=== PATIENT | male | born 1955 | race Asian ===

== ENCOUNTER 2019-07-25 18:33 | Emergency (ER) | payer SELFPAY ==
[2019-07-25] MEDS ORDERED: SODIUM CHLORIDE 0.9% 1000 ML 1,000 ML IV ONE ×2 (18:56→20:15)
--- NOTE | 2019-07-25 19:03 | Emergency Department Report ---
<MOIZROGELIO - Last Filed: 07/26/19 12:04> ED Altered Mental Status HPI - General Chief Complaint: Altered Mental Status Stated Complaint: ALTERED MENTAL STATUS Time Seen by Provider: 07/25/19 18:52 - Related Data Allergies Allergy/AdvReac Type Severity Reaction Status Date / Time No Known Allergies Allergy Unverified 07/26/19 04:50 - Lab Data Result diagrams: 07/25/19 19:39 07/25/19 19:39 - Medical Decision Making Patient dressed himself. He is now lucid alert and oriented. He denies suicidal homicidal ideation. He is not responding to internal stimuli. I suspect the majority of his symptoms are due to acute intoxication. He is now clinically sober directable calm polite insightful. Discharged home. In regard to elevated creatinine kinase, patient does not have muscle aches or malaise to indicate rhabdomyolysis. He received IV fluid therapy appropriately prior to discharge. ED Disposition Clinical Impression: Altered mental status, Cocaine abuse, Methamphetamine abuse, Acute substance intoxication Disposition: DC-01 TO HOME OR SELFCARE Is pt being admited?: No Does the pt Need Aspirin: No Condition: Stable Instructions: Polysubstance Abuse (ED) Referrals: [facility] [Outside] - 3-5 Days <JOSE DE JESUS GHOTRA - Last Filed: 07/26/19 20:59> ED Altered Mental Status HPI - General Source: EMS Mode of arrival: Stretcher Limitations: Altered Mental Status - History of Present Illness Initial Comments: Patient is 64 years old male with history of schizophrenia and substance abuse. Patient was found by a bystander who called EMS after patient was [place] unconscious in a [place] [address] in [place]. Patient is obtunded with episodes of agitation. Patient is moving all extremities. P atient is unable to provide any more history. Patient found to be hypotensive given normal saline by EMS and his blood pressure improved to 102/54. MD Complaint: altered mental status, decreased responsiveness, intoxication -: unknown Context: alcohol abuse ED Review of Systems Comment: Unobtainable due to pts medical conditions ED Physical Exam - General Limitations: Altered Mental Status General appearance: obtunded - Head Head exam: Present: other (Hematoma to the scalp. No active bleeding.) - Eye Eye exam: Present: normal appearance, other (3 mm and reactive to light) - ENT ENT exam: Present: mucous membranes dry - Neck Neck exam: Present: normal inspection, full ROM. Absent: tenderness, meningismus, lymphadenopathy, thyromegaly - Respiratory Respiratory exam: Present: normal lung sounds bilaterally. Absent: respiratory distress, wheezes, rales, rhonchi, chest wall tenderness, accessory muscle use, decreased breath sounds, prolonged expiratory - Cardiovascular Cardiovascular Exam: Present: regular rate, normal rhythm, normal heart sounds - GI/Abdominal GI/Abdominal exam: Present: soft, normal bowel sounds. Absent: distended, tenderness, guarding, rebound, rigid, organomegaly, mass, bruit, pulsatile mass, hernia - Extremities Exam Extremities exam: Present: normal inspection, full ROM, normal capillary refill. Absent: pedal edema, calf tenderness - Back Exam Back exam: Present: normal inspection, full ROM. Absent: CVA tenderness (R) - Neurological Exam Neurological exam: Present: altered, CN II-XII intact. Absent: motor sensory deficit - Psychiatric Psychiatric exam: Present: normal mood - Skin Skin exam: Present: warm, intact, normal color - Lab Data Result diagrams: 07/25/19 19:39 07/25/19 19:39 - EKG Data -: EKG Interpreted by Nm EKG shows normal: sinus rhythm Rate: normal Interpretation: no acute changes - Radiology Data Radiology results: report reviewed - Medical Decision Making Patient is 64 years old male with history of schizophrenia and substance abuse. Patient was found by a bystander who called EMS after patient was found unconscious in a [place] parking [place] [address] in [place]. Patient is obtunded with episodes of agitation. Patient is moving all extremities. Patient is unable to provide any more history. Patient found to be hypotensive given normal saline by EMS and his blood pressure improved to 102/54. Patient is agitated in the ER. Patient received Geodon 20 mg IM. Labs reviewed and showed a hypokalemia of 2.9. Potassium chloride given. UDS is strongly positive for methamphetamine, cocaine and marijuana. CT brain is negative for acute finding. <NATALIA PINA - Last Filed: 07/28/19 10:49> ED Review of Systems ROS: Stated complaint: ALTERED MENTAL STATUS Other details as noted in HPI ED Course Vital Signs 07/25/19 07/25/19 07/25/19 18:36 18:43 18:45 Temperature 98.3 F Pulse Rate 86 81 75 Respiratory 17 24 26 H Rate Blood Pressure 106/54 Blood Pressure 102/54 [Left] O2 Sat by Pulse 98 95 Oximetry 07/25/19 07/25/19 07/25/19 19:00 19:33 19:45 Temperature Pulse Rate 76 81 Respiratory 25 H 24 22 Rate Blood Pressure 102/53 102/53 103/61 Blood Pressure [Left] O2 Sat by Pulse 95 95 Oximetry 07/25/19 07/25/19 07/25/19 20:00 20:15 20:30 Temperature Pulse Rate 81 Respiratory 23 25 H 26 H Rate Blood Pressure 106/46 102/53 111/50 Blood Pressure [Left] O2 Sat by Pulse 93 92 92 Oximetry 07/25/19 07/25/19 07/25/19 20:45 21:00 21:21 Temperature Pulse Rate 79 80 Respiratory 25 H 27 H 18 Rate Blood Pressure 111/50 107/48 111/50 Blood Pressure [Left] O2 Sat by Pulse 92 93 98 Oximetry 07/25/19 07/25/19 07/25/19 21:31 21:45 22:00 Temperature Pulse Rate 86 90 80 Respiratory 18 14 18 Rate Blood Pressure 118/61 118/61 102/56 Blood Pressure [Left] O2 Sat by Pulse 97 99 97 Oximetry 07/25/19 07/25/19 07/25/19 22:21 22:31 22:45 Temperature Pulse Rate 89 93 H 92 H Respiratory 21 17 21 Rate Blood Pressure 107/48 101/65 102/56 Blood Pressure [Left] O2 Sat by Pulse 98 99 98 Oximetry 07/25/19 07/25/19 07/25/19 23:01 23:15 23:31 Temperature Pulse Rate 89 84 79 Respiratory 23 24 19 Rate Blood Pressure 95/59 101/65 93/57 Blood Pressure [Left] O2 Sat by Pulse 96 98 97 Oximetry 07/25/19 07/26/19 07/26/19 23:45 00:00 00:15 Temperature Pulse Rate 83 77 74 Respiratory 15 19 21 Rate Blood Pressure 93/57 88/45 88/45 Blood Pressure [Left] O2 Sat by Pulse 99 98 97 Oximetry 07/26/19 07/26/19 07/26/19 00:30 00:45 01:00 Temperature Pulse Rate 74 71 73 Respiratory 20 20 21 Rate Blood Pressure 97/52 97/52 99/50 Blood Pressure [Left] O2 Sat by Pulse 98 98 98 Oximetry 07/26/19 07/26/19 07/26/19 01:15 01:30 01:45 Temperature Pulse Rate 71 70 80 Respiratory 23 20 24 Rate Blood Pressure 99/50 108/53 108/53 Blood Pressure [Left] O2 Sat by Pulse 98 98 97 Oximetry 07/26/19 07/26/19 07/26/19 02:00 02:15 02:30 Temperature Pulse Rate 71 76 72 Respiratory 17 20 14 Rate Blood Pressure 105/55 105/55 106/50 Blood Pressure [Left] O2 Sat by Pulse 97 96 97 Oximetry 07/26/19 07/26/19 07/26/19 02:45 03:00 03:16 Temperature Pulse Rate 67 100 H 80 Respiratory 19 24 23 Rate Blood Pressure 106/50 106/50 106/50 Blood Pressure [Left] O2 Sat by Pulse 95 97 97 Oximetry 07/26/19 07/26/19 07/26/19 03:30 03:46 04:00 Temperature Pulse Rate 89 77 76 Respiratory 17 19 19 Rate Blood Pressure 106/50 131/78 100/37 Blood Pressure [Left] O2 Sat by Pulse 98 96 95 Oximetry 07/26/19 07/26/19 07/26/19 04:16 04:30 04:46 Temperature Pulse Rate 78 82 71 Respiratory 18 12 20 Rate Blood Pressure 100/37 100/50 100/50 Blood Pressure [Left] O2 Sat by Pulse 95 99 96 Oximetry 07/26/19 07/26/19 07/26/19 05:00 06:00 07:00 Temperature Pulse Rate 65 78 96 H Respiratory 20 20 26 H Rate Blood Pressure 113/56 99/38 120/62 Blood Pressure [Left] O2 Sat by Pulse 96 95 96 Oximetry 07/26/19 07/26/19 07/26/19 08:00 09:00 10:00 Temperature Pulse Rate 89 104 H 75 Respiratory 22 30 H 22 Rate Blood Pressure 112/62 117/58 129/43 Blood Pressure [Left] O2 Sat by Pulse 99 97 97 Oximetry 07/26/19 11:00 Temperature Pulse Rate Respiratory 26 H Rate Blood Pressure 123/53 Blood Pressure [Left] O2 Sat by Pulse 98 Oximetry - Reevaluation(s) Reevaluation #1: 07/26/19 04:42 pt recevied 4 L NS total (as per nurse orders not initially placed in [facility]) prior to ck draw at 3:23. ck is 1938 now. CK was not initially ordered upon patient's arrival to the ED. Patient apparently also received potassium chloride 20 mEq. Magnesium is normal. I ordered an additional 2 L of normal saline and will sign out to oncoming provider Dr. Roseanne delgado to f/u to ensure trending downward. Pt apparently is more awake and demanding blankets from staff. - Lab Data Result diagrams: 07/25/19 19:39 07/25/19 19:39 Lab Results 07/25/19 07/25/19 07/25/19 Range/Units 18:57 19:36 19:39 WBC 7.9 (4.5-11.0) K/mm3 RBC 3.86 (3.65-5.03) M/mm3 Hgb 12.2 (11.8-15.2) gm/dl Hct 35.8 (35.5-45.6) % MCV 93 (84-94) fl MCH 32 (28-32) pg MCHC 34 (32-34) % RDW 14.6 (13.2-15.2) % Plt Count 208 (140-440) K/mm3 Lymph % (Auto) 13.0 L (13.4-35.0) % [place] % (Auto) 8.9 H (0.0-7.3) % Eos % (Auto) 0.0 (0.0-4.3) % Baso % (Auto) 0.2 (0.0-1.8) % Lymph # 1.0 L (1.2-5.4) K/mm3 [place] # 0.7 (0.0-0.8) K/mm3 Eos # 0.0 (0.0-0.4) K/mm3 Baso # 0.0 (0.0-0.1) K/mm3 Seg Neutrophils % 77.9 H (40.0-70.0) % Seg Neutrophils # 6.1 (1.8-7.7) K/mm3 PT (12.2-14.9) Sec. INR (0.87-1.13) APTT (24.2-36.6) Sec. Sodium (137-145) mmol/L Potassium (3.6-5.0) mmol/L Chloride (98-107) mmol/L Carbon Dioxide (22-30) mmol/L Anion Gap mmol/L BUN (9-20) mg/dL Creatinine (0.8-1.5) mg/dL Estimated GFR ml/min BUN/Creatinine Ratio % Glucose (75-100) mg/dL Lactic Acid (0.7-2.0) mmol/L Calcium (8.4-10.2) mg/dL Magnesium (1.7-2.3) mg/dL Total Bilirubin (0.1-1.2) mg/dL Direct Bilirubin (0-0.2) mg/dL Indirect Bilirubin mg/dL AST (5-40) units/L ALT (7-56) units/L Alkaline Phosphatase (35-129) units/L Ammonia (25-60) umol/L Total Creatine Kinase (55-170) units/L Troponin T (0.00-0.029) ng/mL Total Protein (6.3-8.2) g/dL Albumin (3.9-5) g/dL Albumin/Globulin Ratio % TSH (0.270-4.200) mlU/mL Urine Color (Yellow) Urine Turbidity (Clear) Urine pH (5.0-7.0) Ur Specific [place] (1.003-1.030) Urine Protein (Negative) mg/dL Urine Glucose (UA) (Negative) mg/dL Urine Ketones (Negative) mg/dL Urine Blood (Negative) Urine Nitrite (Negative) Urine Bilirubin (Negative) Urine Urobilinogen (<2.0) mg/dL Ur Leukocyte Esterase (Negative) Urine WBC (Auto) (0.0-6.0) /HPF Urine RBC (Auto) (0.0-6.0) /HPF Urine Bacteria (Auto) (Negative) /HPF Urine Mucus /HPF Salicylates (2.8-20.0) mg/dL Urine Opiates Screen Presumptive negative Urine Methadone Screen Presumptive negative Acetaminophen (10.0-30.0) ug/mL Ur Barbiturates Screen Presumptive negative Ur Phencyclidine Scrn Presumptive negative Ur Amphetamines Screen Presumptive positive U Benzodiazepines Scrn Presumptive negative Urine Cocaine Screen Presumptive positive U Marijuana (THC) Screen Presumptive positive Drugs of Abuse Note Disclamer Plasma/Serum Alcohol (0-0.07) % Blood Type O POSITIVE Antibody Screen Negative 07/25/19 07/25/19 07/25/19 Range/Units 19:39 19:39 19:39 WBC (4.5-11.0) K/mm3 RBC (3.65-5.03) M/mm3 Hgb (11.8-15.2) gm/dl Hct (35.5-45.6) % MCV (84-94) fl MCH (28-32) pg MCHC (32-34) % RDW (13.2-15.2) % Plt Count (140-440) K/mm3 Lymph % (Auto) (13.4-35.0) % [place] % (Auto) (0.0-7.3) % Eos % (Auto) (0.0-4.3) % Baso % (Auto) (0.0-1.8) % Lymph # (1.2-5.4) K/mm3 [place] # (0.0-0.8) K/mm3 Eos # (0.0-0.4) K/mm3 Baso # (0.0-0.1) K/mm3 Seg Neutrophils % (40.0-70.0) % Seg Neutrophils # (1.8-7.7) K/mm3 PT 14.1 (12.2-14.9) Sec. INR 1.08 (0.87-1.13) APTT 28.4 (24.2-36.6) Sec. Sodium 138 (137-145) mmol/L Potassium 2.9 L* (3.6-5.0) mmol/L Chloride 99.5 (98-107) mmol/L Carbon Dioxide 19 L (22-30) mmol/L Anion Gap 22 mmol/L BUN 39 H (9-20) mg/dL Creatinine 1.8 H (0.8-1.5) mg/dL Estimated GFR 38 ml/min BUN/Creatinine Ratio 22 % Glucose 99 (75-100) mg/dL Lactic Acid (0.7-2.0) mmol/L Calcium 8.5 (8.4-10.2) mg/dL Magnesium (1.7-2.3) mg/dL Total Bilirubin (0.1-1.2) mg/dL Direct Bilirubin (0-0.2) mg/dL Indirect Bilirubin mg/dL AST (5-40) units/L ALT (7-56) units/L Alkaline Phosphatase (35-129) units/L Ammonia (25-60) umol/L Total Creatine Kinase (55-170) units/L Troponin T (0.00-0.029) ng/mL Total Protein (6.3-8.2) g/dL Albumin (3.9-5) g/dL Albumin/Globulin Ratio % TSH (0.270-4.200) mlU/mL Urine Color (Yellow) Urine Turbidity (Clear) Urine pH (5.0-7.0) Ur Specific [place] (1.003-1.030) Urine Protein (Negative) mg/dL Urine Glucose (UA) (Negative) mg/dL Urine Ketones (Negative) mg/dL Urine Blood (Negative) Urine Nitrite (Negative) Urine Bilirubin (Negative) Urine Urobilinogen (<2.0) mg/dL Ur Leukocyte Esterase (Negative) Urine WBC (Auto) (0.0-6.0) /HPF Urine RBC (Auto) (0.0-6.0) /HPF Urine Bacteria (Auto) (Negative) /HPF Urine Mucus /HPF Salicylates (2.8-20.0) mg/dL Urine Opiates Screen Urine Methadone Screen Acetaminophen (10.0-30.0) ug/mL Ur Barbiturates Screen Ur Phencyclidine Scrn Ur Amphetamines Screen U Benzodiazepines Scrn Urine Cocaine Screen U Marijuana (THC) Screen Drugs of Abuse Note Plasma/Serum Alcohol < 0.01 (0-0.07) % Blood Type Antibody Screen 07/25/19 07/25/19 07/25/19 Range/Units 19:39 19:39 19:39 WBC (4.5-11.0) K/mm3 RBC (3.65-5.03) M/mm3 Hgb (11.8-15.2) gm/dl Hct (35.5-45.6) % MCV (84-94) fl MCH (28-32) pg MCHC (32-34) % RDW (13.2-15.2) % Plt Count (140-440) K/mm3 Lymph % (Auto) (13.4-35.0) % [place] % (Auto) (0.0-7.3) % Eos % (Auto) (0.0-4.3) % Baso % (Auto) (0.0-1.8) % Lymph # (1.2-5.4) K/mm3 [place] # (0.0-0.8) K/mm3 Eos # (0.0-0.4) K/mm3 Baso # (0.0-0.1) K/mm3 Seg Neutrophils % (40.0-70.0) % Seg Neutrophils # (1.8-7.7) K/mm3 PT (12.2-14.9) Sec. INR (0.87-1.13) APTT (24.2-36.6) Sec. Sodium (137-145) mmol/L Potassium (3.6-5.0) mmol/L Chloride (98-107) mmol/L Carbon Dioxide (22-30) mmol/L Anion Gap mmol/L BUN (9-20) mg/dL Creatinine (0.8-1.5) mg/dL Estimated GFR ml/min BUN/Creatinine Ratio % Glucose (75-100) mg/dL Lactic Acid (0.7-2.0) mmol/L Calcium (8.4-10.2) mg/dL Magnesium (1.7-2.3) mg/dL Total Bilirubin 1.10 (0.1-1.2) mg/dL Direct Bilirubin 0.4 H (0-0.2) mg/dL Indirect Bilirubin 0.7 mg/dL AST 139 H (5-40) units/L ALT 56 (7-56) units/L Alkaline Phosphatase 60 (35-129) units/L Ammonia 52.0 (25-60) umol/L Total Creatine Kinase (55-170) units/L Troponin T 0.010 (0.00-0.029) ng/mL Total Protein 7.6 (6.3-8.2) g/dL Albumin 3.9 (3.9-5) g/dL Albumin/Globulin Ratio 1.1 % TSH 1.880 (0.270-4.200) mlU/mL Urine Color (Yellow) Urine Turbidity (Clear) Urine pH (5.0-7.0) Ur Specific [place] (1.003-1.030) Urine Protein (Negative) mg/dL Urine Glucose (UA) (Negative) mg/dL Urine Ketones (Negative) mg/dL Urine Blood (Negative) Urine Nitrite (Negative) Urine Bilirubin (Negative) Urine Urobilinogen (<2.0) mg/dL Ur Leukocyte Esterase (Negative) Urine WBC (Auto) (0.0-6.0) /HPF Urine RBC (Auto) (0.0-6.0) /HPF Urine Bacteria (Auto) (Negative) /HPF Urine Mucus /HPF Salicylates (2.8-20.0) mg/dL Urine Opiates Screen Urine Methadone Screen Acetaminophen (10.0-30.0) ug/mL Ur Barbiturates Screen Ur Phencyclidine Scrn Ur Amphetamines Screen U Benzodiazepines Scrn Urine Cocaine Screen U Marijuana (THC) Screen Drugs of Abuse Note Plasma/Serum Alcohol (0-0.07) % Blood Type Antibody Screen 07/25/19 07/25/19 07/25/19 Range/Units 19:39 19:39 19:39 WBC (4.5-11.0) K/mm3 RBC (3.65-5.03) M/mm3 Hgb (11.8-15.2) gm/dl Hct (35.5-45.6) % MCV (84-94) fl MCH (28-32) pg MCHC (32-34) % RDW (13.2-15.2) % Plt Count (140-440) K/mm3 Lymph % (Auto) (13.4-35.0) % [place] % (Auto) (0.0-7.3) % Eos % (Auto) (0.0-4.3) % Baso % (Auto) (0.0-1.8) % Lymph # (1.2-5.4) K/mm3 [place] # (0.0-0.8) K/mm3 Eos # (0.0-0.4) K/mm3 Baso # (0.0-0.1) K/mm3 Seg Neutrophils % (40.0-70.0) % Seg Neutrophils # (1.8-7.7) K/mm3 PT (12.2-14.9) Sec. INR (0.87-1.13) APTT (24.2-36.6) Sec. Sodium (137-145) mmol/L Potassium (3.6-5.0) mmol/L Chloride (98-107) mmol/L Carbon Dioxide (22-30) mmol/L Anion Gap mmol/L BUN (9-20) mg/dL Creatinine (0.8-1.5) mg/dL Estimated GFR ml/min BUN/Creatinine Ratio % Glucose (75-100) mg/dL Lactic Acid 0.80 (0.7-2.0) mmol/L Calcium (8.4-10.2) mg/dL Magnesium (1.7-2.3) mg/dL Total Bilirubin (0.1-1.2) mg/dL Direct Bilirubin (0-0.2) mg/dL Indirect Bilirubin mg/dL AST (5-40) units/L ALT (7-56) units/L Alkaline Phosphatase (35-129) units/L Ammonia (25-60) umol/L Total Creatine Kinase (55-170) units/L Troponin T (0.00-0.029) ng/mL Total Protein (6.3-8.2) g/dL Albumin (3.9-5) g/dL Albumin/Globulin Ratio % TSH (0.270-4.200) mlU/mL Urine Color (Yellow) Urine Turbidity (Clear) Urine pH (5.0-7.0) Ur Specific [place] (1.003-1.030) Urine Protein (Negative) mg/dL Urine Glucose (UA) (Negative) mg/dL Urine Ketones (Negative) mg/dL Urine Blood (Negative) Urine Nitrite (Negative) Urine Bilirubin (Negative) Urine Urobilinogen (<2.0) mg/dL Ur Leukocyte Esterase (Negative) Urine WBC (Auto) (0.0-6.0) /HPF Urine RBC (Auto) (0.0-6.0) /HPF Urine Bacteria (Auto) (Negative) /HPF Urine Mucus /HPF Salicylates < 0.3 L (2.8-20.0) mg/dL Urine Opiates Screen Urine Methadone Screen Acetaminophen < 5.0 L (10.0-30.0) ug/mL Ur Barbiturates Screen Ur Phencyclidine Scrn Ur Amphetamines Screen U Benzodiazepines Scrn Urine Cocaine Screen U Marijuana (THC) Screen Drugs of Abuse Note Plasma/Serum Alcohol (0-0.07) % Blood Type Antibody Screen 07/25/19 07/25/19 07/25/19 Range/Units 21:37 21:37 22:40 WBC (4.5-11.0) K/mm3 RBC (3.65-5.03) M/mm3 Hgb (11.8-15.2) gm/dl Hct (35.5-45.6) % MCV (84-94) fl MCH (28-32) pg MCHC (32-34) % RDW (13.2-15.2) % Plt Count (140-440) K/mm3 Lymph % (Auto) (13.4-35.0) % [place] % (Auto) (0.0-7.3) % Eos % (Auto) (0.0-4.3) % Baso % (Auto) (0.0-1.8) % Lymph # (1.2-5.4) K/mm3 [place] # (0.0-0.8) K/mm3 Eos # (0.0-0.4) K/mm3 Baso # (0.0-0.1) K/mm3 Seg Neutrophils % (40.0-70.0) % Seg Neutrophils # (1.8-7.7) K/mm3 PT (12.2-14.9) Sec. INR (0.87-1.13) APTT (24.2-36.6) Sec. Sodium (137-145) mmol/L Potassium (3.6-5.0) mmol/L Chloride (98-107) mmol/L Carbon Dioxide (22-30) mmol/L Anion Gap mmol/L BUN (9-20) mg/dL Creatinine (0.8-1.5) mg/dL Estimated GFR ml/min BUN/Creatinine Ratio % Glucose (75-100) mg/dL Lactic Acid 0.80 (0.7-2.0) mmol/L Calcium (8.4-10.2) mg/dL Magnesium (1.7-2.3) mg/dL Total Bilirubin (0.1-1.2) mg/dL Direct Bilirubin (0-0.2) mg/dL Indirect Bilirubin mg/dL AST (5-40) units/L ALT (7-56) units/L Alkaline Phosphatase (35-129) units/L Ammonia (25-60) umol/L Total Creatine Kinase (55-170) units/L Troponin T < 0.010 (0.00-0.029) ng/mL Total Protein (6.3-8.2) g/dL Albumin (3.9-5) g/dL Albumin/Globulin Ratio % TSH (0.270-4.200) mlU/mL Urine Color Yellow (Yellow) Urine Turbidity Clear (Clear) Urine pH 5.0 (5.0-7.0) Ur Specific [place] 1.009 (1.003-1.030) Urine Protein <15 mg/dl (Negative) mg/dL Urine Glucose (UA) Neg (Negative) mg/dL Urine Ketones 20 (Negative) mg/dL Urine Blood Sm (Negative) Urine Nitrite Neg (Negative) Urine Bilirubin Neg (Negative) Urine Urobilinogen < 2.0 (<2.0) mg/dL Ur Leukocyte Esterase Neg (Negative) Urine WBC (Auto) 1.0 (0.0-6.0) /HPF Urine RBC (Auto) 3.0 (0.0-6.0) /HPF Urine Bacteria (Auto) 1+ (Negative) /HPF Urine Mucus Few /HPF Salicylates (2.8-20.0) mg/dL Urine Opiates Screen Urine Methadone Screen Acetaminophen (10.0-30.0) ug/mL Ur Barbiturates Screen Ur Phencyclidine Scrn Ur Amphetamines Screen U Benzodiazepines Scrn Urine Cocaine Screen U Marijuana (THC) Screen Drugs of Abuse Note Plasma/Serum Alcohol (0-0.07) % Blood Type Antibody Screen 07/26/19 07/26/19 Range/Units 03:23 10:42 WBC (4.5-11.0) K/mm3 RBC (3.65-5.03) M/mm3 Hgb (11.8-15.2) gm/dl Hct (35.5-45.6) % MCV (84-94) fl MCH (28-32) pg MCHC (32-34) % RDW (13.2-15.2) % Plt Count (140-440) K/mm3 Lymph % (Auto) (13.4-35.0) % [place] % (Auto) (0.0-7.3) % Eos % (Auto) (0.0-4.3) % Baso % (Auto) (0.0-1.8) % Lymph # (1.2-5.4) K/mm3 [place] # (0.0-0.8) K/mm3 Eos # (0.0-0.4) K/mm3 Baso # (0.0-0.1) K/mm3 Seg Neutrophils % (40.0-70.0) % Seg Neutrophils # (1.8-7.7) K/mm3 PT (12.2-14.9) Sec. INR (0.87-1.13) APTT (24.2-36.6) Sec. Sodium (137-145) mmol/L Potassium (3.6-5.0) mmol/L Chloride (98-107) mmol/L Carbon Dioxide (22-30) mmol/L Anion Gap mmol/L BUN (9-20) mg/dL Creatinine (0.8-1.5) mg/dL Estimated GFR ml/min BUN/Creatinine Ratio % Glucose (75-100) mg/dL Lactic Acid (0.7-2.0) mmol/L Calcium (8.4-10.2) mg/dL Magnesium 2.50 H (1.7-2.3) mg/dL Total Bilirubin (0.1-1.2) mg/dL Direct Bilirubin (0-0.2) mg/dL Indirect Bilirubin mg/dL AST (5-40) units/L ALT (7-56) units/L Alkaline Phosphatase (35-129) units/L Ammonia (25-60) umol/L Total Creatine Kinase 1938 H 2114 H (55-170) units/L Troponin T (0.00-0.029) ng/mL Total Protein (6.3-8.2) g/dL Albumin (3.9-5) g/dL Albumin/Globulin Ratio % TSH (0.270-4.200) mlU/mL Urine Color (Yellow) Urine Turbidity (Clear) Urine pH (5.0-7.0) Ur Specific [place] (1.003-1.030) Urine Protein (Negative) mg/dL Urine Glucose (UA) (Negative) mg/dL Urine Ketones (Negative) mg/dL Urine Blood (Negative) Urine Nitrite (Negative) Urine Bilirubin (Negative) Urine Urobilinogen (<2.0) mg/dL Ur Leukocyte Esterase (Negative) Urine WBC (Auto) (0.0-6.0) /HPF Urine RBC (Auto) (0.0-6.0) /HPF Urine Bacteria (Auto) (Negative) /HPF Urine Mucus /HPF Salicylates (2.8-20.0) mg/dL Urine Opiates Screen Urine Methadone Screen Acetaminophen (10.0-30.0) ug/mL Ur Barbiturates Screen Ur Phencyclidine Scrn Ur Amphetamines Screen U Benzodiazepines Scrn Urine Cocaine Screen U Marijuana (THC) Screen Drugs of Abuse Note Plasma/Serum Alcohol (0-0.07) % Blood Type Antibody Screen Critical care attestation.: If time is entered above; I have spent that time in minutes in the direct care of this critically ill patient, excluding procedure time.
[2019-07-25] MEDS ORDERED: ZIPRASIDONE MESYLATE 20 MG VIAL IM ONE ×2 (19:13→20:52)
--- NOTE | 2019-07-25 19:30 | XRay Report ---
CHEST 1 VIEW INDICATION: Altered Mental Status. COMPARISON: None FINDINGS: Support devices: None. Heart: Within normal limits. Lungs/Pleura: No acute air space or interstitial disease. Additional findings: None. IMPRESSION: 1. No acute findings. Signer Name: Jimbo Leroy MD Signed: 07/25/2019 7:26 PM Workstation Name: [id number]
[2019-07-25 19:52] LABS: Basophils % (Auto) 0.2 % (0.0-1.8); Hematocrit 35.8 % (35.5-45.6); Hemoglobin 12.2 gm/dl (11.8-15.2); Mean Corpuscular HGB Conc 34 % (32-34); Mean Corpuscular Volume 93 fl (84-94); Monocytes # (Auto) 0.7 K/mm3 (0.0-0.8); Monocytes % (Auto) 8.9 % (0.0-7.3); Platelet Count 208 K/mm3 (140-440); Red Blood Count 3.86 M/mm3 (3.65-5.03); Red Cell Distribution Width 14.6 % (13.2-15.2)
[2019-07-25 20:10] LABS: Calcium 8.5 mg/dL (8.4-10.2)
[2019-07-25 20:14] LABS: Albumin 3.9 g/dL (3.9-5); Bilirubin,Direct 0.4 mg/dL (0-0.2); INR 1.08 (0.87-1.13)
[2019-07-25 20:15] LABS: Partial Thromboplastin Time 28.4 Sec. (24.2-36.6)
[2019-07-25] MEDS: POTASSIUM CHLORIDE 10 MEQ 10 MEQ/100 ML BAG IV SCH ×2 (21:45→22:45)
--- NOTE | 2019-07-25 22:45 | Cat Scan Report ---
CT head/brain wo con INDICATION / CLINICAL INFORMATION: Altered Mental Status. TECHNIQUE: Axial CT imaging of the brain was obtained without contrast. Coronal and sagittal reformatted imaging obtained and reviewed. All CT scans at this location are performed using CT dose reduction for ALA RA by means of automated exposure control. COMPARISON: None available. FINDINGS: No intracranial hemorrhage, mass, or midline shift noted. No extra-axial fluid collection or suggesti on of acute CVA. Mild to moderate cerebral and cerebellar atrophy are noted. Moderate microvascular a ngiopathic changes are present. Visualized paranasal sinuses are well aerated and clear. No calvarial abnormality. IMPRESSION: 1. No acute intracranial abnormality. 2. Moderate microvascular angiopathic changes. Signer Name: Anusha Stewart MD Signed: 07/25/2019 10:41 PM Workstation Name: [id number]
[2019-07-26 00:18] LABS: Bacteria,Urine 1+ /HPF (Negative); Bilirubin,Urine NEG (Negative); Blood,Urine SM (Negative); Color,Urine Yellow (Yellow); Mucus,Urine FEW /HPF; Protein,Urine <15 mg/dL mg/dL (Negative); Urobilinogen,Urine < 2.0 mg/dL (<2.0)
[2019-07-26 00:28] LABS: Benzodiazepines Screen,Urine PRESUMPTIVE NEGATIVE; Methadone Screen,Urine PRESUMPTIVE NEGATIVE; Opiate Screen,Urine PRESUMPTIVE NEGATIVE
[2019-07-26 00:43] LABS: Amphetamine Screen,Urine PRESUMPTIVE POSITIVE; Cannabinoid Screen,Urine PRESUMPTIVE POSITIVE; Cocaine Screen,Urine PRESUMPTIVE POSITIVE
[2019-07-26] MEDS ORDERED: SODIUM CHLORIDE 0.9% 1000 ML 1,000 ML IV ONE ×3 (04:37)
[2019-07-26] MEDS ORDERED: ZIPRASIDONE MESYLATE 20 MG VIAL IM ONE (10:52)
[2019-07-26] MEDS ORDERED: WATER FOR INJ Sterile (PF) 10 ML ONE (11:03)
[2019-07-26 11:15] VITALS: BP 123/53
== END 2019-07-26 12:18 | disposition home or self-care (01) ==
LOC: ED 18:33
DX: R45.851 Suicidal ideations (principal); F14.10 Cocaine abuse, uncomplicated; F19.10 Other psychoactive substance abuse, uncomplicated; F15.129 Other stimulant abuse with intoxication, unspecified
CPT/HCPCS: 36415; 70450; 71045; 80048; 80076; 80307; 81001; 82140; 82550; 83735; 84443; 84484; 85025; 85610; 85730; 86850; 86900; 86901; 87040; 93005; 93010; 96361; 96365; 96366; 96372; 99285; J3480; J3486; J7030; 80320; G0480

== ENCOUNTER 2020-03-03 21:02 | Inpatient (IN) | payer MEDICAID ==
--- NOTE | 2020-03-03 21:18 | Emergency Department Report ---
ED General Adult HPI - General Chief complaint: Fever Stated complaint: FEVER/LOW O2 SATS PUI?: No Time Seen by Provider: 03/03/20 21:13 Source: EMS, RN notes reviewed, old records reviewed Mode of arrival: Stretcher Limitations: Altered Mental Status, Physical Limitation - History of Present Illness Initial comments: Patient is a 64-year-old male that presents from a local group home for fever and low oxygen saturation. Patient presents from [facility]. Patient brought in by EMS. Report received from EMS. EMS states that the patient is at his normal neurologic baseline and has a history of a TBI and has been like this since a traumatic brain injury. Patient developed a fever and became hypoxic tonight. Patient has not been tested for Covid. Patient presents with his group home chart. alf chart was reviewed. Patient has a past medical history of traumatic brain injury, anemia, dysphagia, hypertension, PEG tube, trach tube. -: Sudden - Related Data Allergies Allergy/AdvReac Type Severity Reaction Status Date / Time No Known Allergies Allergy Unverified 07/26/19 04:50 ED Review of Systems ROS: Stated complaint: FEVER/LOW O2 SATS Other details as noted in HPI Comment: Unobtainable due to pts medical conditions ED Past Medical Hx - Past Medical History Previous Medical History?: Yes Hx Hypertension: Yes Additional medical history: TBI - Surgical History Past Surgical History?: Yes Additional Surgical History: Trach and PEG - Family History Family history: no significant - Social History Smoking Status: Unknown if ever smoked Substance Use Type: None ED Physical Exam - General Limitations: Altered Mental Status, Physical Limitation General appearance: lethargic, in distress - Head Head exam: Present: atraumatic, normocephalic - Eye Eye exam: Present: normal appearance, PERRL Pupils: Present: normal accommodation - ENT ENT exam: Present: mucous membranes dry - Neck Neck exam: Present: normal inspection - Respiratory Respiratory exam: Present: respiratory distress, accessory muscle use, decreased breath sounds. Absent: wheezes - Cardiovascular Cardiovascular Exam: Present: regular rate, normal rhythm. Absent: systolic murmur, diastolic murmur, rubs, gallop - GI/Abdominal GI/Abdominal exam: Present: soft, normal bowel sounds. Absent: distended, tenderness, guarding - Rectal Rectal exam: Present: deferred - Extremities Exam Extremities exam: Present: normal inspection - Back Exam Back exam: Present: normal inspection - Neurological Exam Neurological exam: Present: altered - Expanded Neurological Exam Expanded Best Eye Response (Bonita): (3) open to voice Best Motor Response (Bonita): (6) obeys commands Best Verbal Response (Bonita): (3) inappropriate words Bonita Total: 12 - Skin Skin exam: Present: warm, dry, intact, normal color. Absent: rash ED Course Vital Signs 03/03/20 03/03/20 03/04/20 21:30 22:38 00:51 Temperature 98.4 F Pulse Rate 84 113 H 106 H Respiratory 37 H Rate Blood Pressure 114/81 107/72 Blood Pressure 122/71 [Left] O2 Sat by Pulse 98 98 100 Oximetry - Reevaluation(s) Reevaluation #1: After initial valuation, respiratory was contacted to place the patient on a ventilator via his trach tube. Patient's oxygen improved. 03/03/20 21:42 Reevaluation #2: Patient is on the vent. Patient's oxygen saturation has improved. Patient's work to breathe has improved. 03/03/20 22:26 Reevaluation #3: Patient to be admitted to the hospitalist service. 03/03/20 23:26 - Consultations Consultation #1: Hospitalist consulted for admission. Hospitalist to admit patient. 03/03/20 23:27 ED Medical Decision Making - Lab Data Result diagrams: 03/03/20 21:51 03/03/20 22:00 - Radiology Data Radiology results: report reviewed, image reviewed interpreted by me: XR chest 1V ap INDICATION / CLINICAL INFORMATION: fever. COMPARISON: 07/25/2019. FINDINGS: SUPPORT DEVICES: Tracheostomy device projects within the mid trachea. HEART /PULMONARY VASCULATURE: No significant abnormality. LUNGS / PLEURA: There are patchy airspace opacities within the right mid and lower lung and left lung base. No pleural effusion. No pneumothorax. ADDITIONAL FINDINGS: No significant additional findings. IMPRESSION: Patchy bibasilar airspace opacities, concerning for pneumonia. - Medical Decision Making Patient is a 64-year-old male that presents emergency room with for fever and hypoxia. Patient is currently in a group home, [place]. Patient brought in by EMS. Patient has a trach and a PEG. Due to the patient's hypoxia and increased work of breathing, the patient's trach was changed and the patient was placed on a ventilator. Patient's vital signs improved. Patient had a sepsis protocol initiated immediately after initial evaluation. Patient given fluids and antibiotics early in the ER stay. Patient's heart rate and blood pressure improved. Patient had labs done which were essentially unremarkable except for elevated Covid markers, elevated WBC, hyponatremia, UTI. Patient admitted to the hospital service for further evaluation treatment. Patient admitted into the ICU. - Differential Diagnosis Sepsis, pneumonia, Covid, UTI, Critical Care Time: Yes Critical care time in (mins) excluding proc time.: 35 Critical care attestation.: If time is entered above; I have spent that time in minutes in the direct care of this critically ill patient, excluding procedure time. Critical Care Time: 35 minutes ED Disposition Clinical Impression: Hypoxia, Person under investigation for COVID-19, Dehydration, Hypernatremia Respiratory failure Qualifiers: Chronicity: acute Respiratory failure complication: hypoxia Qualified Code(s): J96.01 - Acute respiratory failure with hypoxia Fever Qualifiers: Fever type: unspecified Qualified Code(s): R50.9 - Fever, unspecified Pneumonia Qualifiers: Pneumonia type: due to unspecified organism Laterality: bilateral Lung location: unspecified part of lung Qualified Code(s): J18.9 - Pneumonia, unspecified organism Sepsis Qualifiers: Sepsis type: sepsis due to unspecified organism Sepsis acute organ dysfunction status: with acute organ dysfunction Severe sepsis acute organ dysfunction type: acute respiratory failure Acute respiratory failure type: with hypoxia Severe sepsis shock status: without septic shock Qualified Code(s): A41.9 - Sepsis, unspecified organism UTI (urinary tract infection) Qualifiers: Urinary tract infection type: acute cystitis Hematuria presence: with hematuria Qualified Code(s): N30.01 - Acute cystitis with hematuria Disposition: OP ADMIT IP TO THIS HOSP Is pt being admited?: Yes Does the pt Need Aspirin: No Condition: Critical Time of Disposition: 23:35
[2020-03-03] MEDS ORDERED: SODIUM CHLORIDE 0.9% 1000 ML IV SOLN IV ONE (21:21)
[2020-03-03] MEDS ORDERED: cefTRIAXone/NS 2 GM/100 ML 2 GM/100 ML BAG IV ONE (21:55)
[2020-03-03] MEDS ORDERED: dexAMETHasone 4 MG/ML VIAL IV ONE (21:55)
--- NOTE | 2020-03-03 22:07 | XRay Report ---
XR chest 1V ap INDICATION / CLINICAL INFORMATION: fever. COMPARISON: 07/25/2019. FINDINGS: SUPPORT DEVICES: Tracheostomy device projects within the mid trachea. HEART /PULMONARY VASCULATURE: No significant abnormality. LUNGS / PLEURA: There are patchy airspace opacities within the right mid and lower lung and left lung base. No pleural effusion. No pneumothorax. ADDITIONAL FINDINGS: No significant additional findings. IMPRESSION: Patchy bibasilar airspace opacities, concerning for pneumonia. Signer Name: Axel Adamson MD Signed: 03/03/2020 10:03 PM Workstation Name: [id number]
[2020-03-03 22:21] LABS: Basophils % (Auto) 0.2 % (0.0-1.8); Hematocrit 35.3 % (35.5-45.6); Hemoglobin 11.8 gm/dl (11.8-15.2); Lymphocytes # (Auto) 1.8 K/mm3 (1.2-5.4); Lymphocytes % (Auto) 11.6 % (13.4-35.0); Mean Corpuscular HGB Conc 33 % (32-34); Mean Corpuscular Volume 93 fl (84-94); Monocytes # (Auto) 0.7 K/mm3 (0.0-0.8); Monocytes % (Auto) 4.5 % (0.0-7.3); Platelet Count 231 K/mm3 (140-440); Red Blood Count 3.81 M/mm3 (3.65-5.03); Red Cell Distribution Width 17.9 % (13.2-15.2)
[2020-03-03 22:24] LABS: Alanine Aminotransferase 30 units/L (7-56); Albumin 2.8 g/dL (3.9-5); Blood Urea Nitrogen 29 mg/dL (9-20); Calcium 9.9 mg/dL (8.4-10.2); Hemolysis Index 2
[2020-03-03 22:30] LABS: BUN/Creatinine Ratio 48
[2020-03-03] MEDS ORDERED: AZITHROMYCIN 500 MG in SODIUM CHLORIDE 0.9% 250ML 250 ML IV ONE (22:30)
[2020-03-03] MEDS ORDERED: MINERAL OIL/PETROLATUM, WHITE OPHTH OINT 3.5 GM OU PRN (22:31)
[2020-03-03] MEDS ORDERED: LIP THERAPY VASELINE TP PRN (22:31)
[2020-03-03 22:37] LABS: Bacteria,Urine 1+ /HPF (Negative); Bilirubin,Urine NEG (Negative); Blood,Urine NEG (Negative); Color,Urine Amber (Yellow); Hyaline Casts,Urine 1 /LPF; Mucus,Urine 1+ /HPF
[2020-03-03 23:11] LABS: C-Reactive Protein 17.2 mg/dL (0.00-1.30)
[2020-03-03] MEDS ORDERED: ONDANSETRON 4 MG/2 ML INJ IV PRN (23:45)
[2020-03-03] MEDS ORDERED: MAGNESIUM HYDROXIDE (MOM) ORAL LIQD UDC PO PRN (23:45)
[2020-03-03] MEDS ORDERED: SODIUM CHLORIDE 0.9% 1000 ML 1,000 ML IV SCH (23:45)
--- NOTE | 2020-03-03 23:57 | History and Physical Report ---
History of Present Illness Date of examination: 03/03/20 Date of admission: 03/03/2020 Chief complaint: Fever, Hypoxia History of present illness: 64-year-old male with known history of traumatic brain injury, hypertension, history of trach placement and PEG placement resident of [facility] brought into the emergency room today by EMS for low oxygen saturation fever. Patient was said to have developed fever and also became hypoxic this evening. Most of the history was gotten from the ER staff as patient is unable to give any history. Work-up in the emergency room today reveals bilateral pneumonia on chest x-ray. He is also found to have a UTI. Patient has been admitted for a pneumonia with possible COVID-19, dehydration, urinary tract infection and sepsis. Past History Past Medical History: hypertension, other (Traumatic Brain injury) Past Surgical History: Other (Trach and peg placement) Social history: other (Resides in a group home) Family history: no significant family history Medications and Allergies Allergies Allergy/AdvReac Type Severity Reaction Status Date / Time No Known Allergies Allergy Unverified 07/26/19 04:50 Active Meds: Active Medications Enoxaparin Sodium (Enoxaparin) 40 mg SUB-Q QDAY@2200 KESHAWN; Protocol Hydrophilic Ointment (Vaseline Lip Therapy) 1 applic TP Q2HR PRN PRN Reason: Dry Lips Sodium Chloride (Nacl 0.9% 1000 Ml) 1,000 mls @ 75 mls/hr IV DIRECT KESHAWN Ceftriaxone Sodium (Rocephin/Ns 2 Gm/100 Ml) 2 gm in 100 mls @ 200 mls/hr IV Q24HR KESHAWN; Protocol Azithromycin 500 mg/ Sodium (Chloride) 250 mls @ 250 mls/hr IV Q24HR KESHAWN; Protocol Magnesium Hydroxide (Milk Of Magnesia) 30 ml PO Q4H PRN PRN Reason: Constipation Morphine Sulfate (Morphine) 2 mg IV Q4H PRN PRN Reason: Pain, Moderate (4-6) Multi-Ingred Cream/Lotion/Oil/Oint (Artificial Tears Ophth Oint) 1 applic OU Q4HR PRN PRN Reason: Dry Eye(s) Ondansetron HCl (Zofran) 4 mg IV Q8H PRN PRN Reason: Nausea And Vomiting Sodium Chloride (Sodium Chloride Flush Syringe 10 Ml) 10 ml IV BID KESHAWN Sodium Chloride (Sodium Chloride Flush Syringe 10 Ml) 10 ml IV PRN PRN PRN Reason: LINE FLUSH Review of Systems ROS unobtainable: due to mental status Exam - Constitutional Vitals: Temp Pulse Resp BP Pulse Ox 98.4 F 113 H 37 H 114/81 98 03/03/20 21:30 03/03/20 22:38 03/03/20 21:30 03/03/20 22:38 03/03/20 22:38 General appearance: Present: no acute distress, cachectic, other (Dry oral mucosa,Trach in place) - EENT Eyes: Present: PERRL, EOM intact. Absent: scleral icterus ENT: hearing intact, clear oral mucosa, dentition normal - Neck Neck: Present: supple, normal ROM - Respiratory Respiratory effort: normal Respiratory: bilateral: diminished - Cardiovascular Rhythm: regular Heart Sounds: Present: S1 & S2. Absent: gallop, systolic murmur, diastolic murmur, rub - Extremities Extremities: no ischemia, pulses intact, pulses symmetrical, No edema, Full ROM Peripheral Pulses: within normal limits - Abdominal General gastrointestinal: Present: soft, non-tender, non-distended, normal bowel sounds. Absent: mass - Integumentary Integumentary: Present: clear, warm, dry - Musculoskeletal Musculoskeletal: strength equal bilaterally - Psychiatric Psychiatric: cooperative, other (Non verbal) - Neurologic Neurologic: CNII-XII intact, moves all extremities, other (Obtunded) Results - Labs CBC & Chem 7: 03/03/20 21:51 03/03/20 22:00 Labs: Abnormal lab results 03/03/20 03/03/20 03/03/20 Range/Units 21:51 21:51 22:00 WBC 15.5 H (4.5-11.0) K/mm3 Hct 35.3 L (35.5-45.6) % RDW 17.9 H (13.2-15.2) % Lymph % (Auto) 11.6 L (13.4-35.0) % Seg Neutrophils % 83.7 H (40.0-70.0) % Seg Neutrophils # 13.0 H (1.8-7.7) K/mm3 D-Dimer 1415.56 H (0-234) ng/mlDDU Sodium 151 H (137-145) mmol/L Chloride 114.4 H (98-107) mmol/L BUN 29 H (9-20) mg/dL Creatinine 0.6 L (0.8-1.3) mg/dL Glucose 116 H (75-100) mg/dL Ferritin (30.0-300.0) ng/mL Lactate Dehydrogenase (91-180) units/L C-Reactive Protein (0.00-1.30) mg/dL Total Protein 8.9 H (6.3-8.2) g/dL Albumin 2.8 L (3.9-5) g/dL Ur Specific [place] (1.003-1.030) Urine WBC (Auto) (0.0-6.0) /HPF 03/03/20 03/03/20 03/03/20 Range/Units 22:00 22:00 22:15 WBC (4.5-11.0) K/mm3 Hct (35.5-45.6) % RDW (13.2-15.2) % Lymph % (Auto) (13.4-35.0) % Seg Neutrophils % (40.0-70.0) % Seg Neutrophils # (1.8-7.7) K/mm3 D-Dimer (0-234) ng/mlDDU Sodium (137-145) mmol/L Chloride (98-107) mmol/L BUN (9-20) mg/dL Creatinine (0.8-1.3) mg/dL Glucose 106 H (75-100) mg/dL Ferritin 522.1 H (30.0-300.0) ng/mL Lactate Dehydrogenase 240 H (91-180) units/L C-Reactive Protein 17.20 H (0.00-1.30) mg/dL Total Protein (6.3-8.2) g/dL Albumin (3.9-5) g/dL Ur Specific [place] 1.031 H (1.003-1.030) Urine WBC (Auto) 8.0 H (0.0-6.0) /HPF Assessment and Plan - Patient Problems (1) Pneumonia Current Visit: Yes Status: Acute Qualifiers: Pneumonia type: due to unspecified organism Laterality: bilateral Lung location: unspecified part of lung Qualified Code(s): J18.9 - Pneumonia, unspe cified organism Plan to address problem: Patient commenced on empiric IV antibiotics. We await culture results. (2) Respiratory failure Current Visit: Yes Status: Acute Qualifiers: Chronicity: acute Respiratory failure complication: hypoxia Qualified Code(s): J96.01 - Acute respiratory failure with hypoxia Plan to address problem: Possibly secondary to the underlying pneumonia with possible Covid. Patient has been on trach and being admitted into the intensive care unit. Will request marketing communications specialist follow-up. (3) Dehydration Current Visit: Yes Status: Acute Plan to address problem: We will place on IV fluid and monitor chemistry. (4) Hypernatremia Current Visit: Yes Status: Acute Plan to address problem: Possibly secondary to the dehydration we will continue on IV fluid hydration. (5) Hypoxia Current Visit: Yes Status: Acute Plan to address problem: Possibly secondary to the underlying pneumonia. We will keep O2 saturation greater or equal to 94%. (6) Person under investigation for COVID-19 Current Visit: Yes Status: Acute Plan to address problem: Patient will be placed on isolation precautions. We await COVID-19 testing. We will also request infectious disease follow-up. (7) Sepsis Current Visit: Yes Status: Acute Qualifiers: Sepsis type: sepsis due to unspecified organism Sepsis acute organ dysfunction status: with acute organ dysfunction Severe sepsis acute organ dysfunction type: acute respiratory failure Acute respiratory failure type: with hypoxia Severe sepsis shock status: without septic shock Qualified Code(s): A41.9 - Sepsis, unspecified organism; R65.20 - Severe sepsis without septic shock; J96.01 - Acute respiratory failure with hypoxia Plan to address problem: Secondary to the underlying pneumonia and UTI. We will continue on IV fluid and empiric IV antibiotics. (8) UTI (urinary tract infection) Current Visit: Yes Status: Acute Qualifiers: Urinary tract infection type: acute cystitis Hematuria presence: with hematuria Qualified Code(s): N30.01 - Acute cystitis with hematuria Plan to address problem: We will continue on empiric IV antibiotics. Will await urine culture results. (9) DVT prophylaxis Current Visit: Yes Status: Acute Plan to address problem: Patient placed on subcutaneous Lovenox. (10) Full code status Current Visit: Yes Status: Acute
--- NOTE | 2020-03-04 00:50 | XRay Report ---
CHEST 1 VIEW INDICATION: follow up respiratory failure. COMPARISON: One day prior. FINDINGS: Support devices: Unchanged. Heart: Stable. Lungs/Pleura: Patchy bibasilar opacities are relatively stable. These are greatest in the infrahilar right lung. No pneumothorax is seen. IMPRESSION: 1. No significant change. Signer Name: Jaydon West MD Signed: 03/04/2020 12:46 AM Workstation Name: [id number]
[2020-03-04 01:55] LABS: ABG Base Excess 2.6 mmol/L (-2.0-3.0); ABG HCO3 26.7 mmol/L (20.0-26.0); ABG Methemoglobin 0.5 % (0.0-1.5); ABG Oxygen Saturation 99.1 % (95.0-99.0); ABG PCO2 39.6 mm Hg; ABG PH 7.446 pH Units (7.350-7.450); ABG PO2 173.4 mm Hg (80.0-90.0)
[2020-03-04 03:26] LABS: INR 1.29 (0.87-1.13)
[2020-03-04 03:37] LABS: Blood Urea Nitrogen 27 mg/dL (9-20); Calcium 9.1 mg/dL (8.4-10.2); Hemolysis Index 3
[2020-03-04 03:38] LABS: BUN/Creatinine Ratio 68
[2020-03-04 03:40] LABS: Hematocrit 33.4 % (35.5-45.6); Hemoglobin 10.9 gm/dl (11.8-15.2); Mean Corpuscular HGB Conc 33 % (32-34); Mean Corpuscular Volume 94 fl (84-94); Platelet Count 195 K/mm3 (140-440); Red Blood Count 3.56 M/mm3 (3.65-5.03); Red Cell Distribution Width 17.5 % (13.2-15.2)
[2020-03-04] MEDS ORDERED: SODIUM CHLORIDE 0.9% 1000 ML 1,000 ML ONE (05:40)
[2020-03-04 05:56] LABS: Anisocytosis Few; Basophils % (Manual) 0 % (0.0-1.8); Eosinophils % (Manual) 0 % (0.0-4.3); Hypochromasia Few; Platelet Estimate Consistent w Auto; Total Cells Counted 100
[2020-03-04] MEDS ORDERED: LORazepam 2 MG/ML VIAL IV ONE (06:29)
[2020-03-04] MEDS ORDERED: LORazepam 2 MG/ML VIAL ONE (06:31)
--- NOTE | 2020-03-04 08:17 | Progress Note ---
Assessment and Plan Assessment and plan: (1) Pneumonia Current Visit: Yes Status: Acute Qualifiers: Pneumonia type: due to unspecified organism Laterality: bilateral Lung location: unspecified part of lung Qualified Code(s): J18.9 - Pneumonia, unspecified organism Plan to address problem: Patient commenced on empiric IV antibiotics. We await culture results. (2) Respiratory failure Current Visit: Yes Status: Acute Qualifiers: Chronicity: acute Respiratory failure complication: hypoxia Qualified Code(s): J96.01 - Acute respiratory failure with hypoxia Plan to address problem: Possibly secondary to the underlying pneumonia with possible Covid. Patient has been on trach and being admitted into the intensive care unit. Will request patient relations specialist follow-up. (3) Dehydration Current Visit: Yes Status: Acute Plan to address problem: We will place on IV fluid and monitor chemistry. (4) Hypernatremia Current Visit: Yes Status: Acute Plan to address problem: Possibly secondary to the dehydration we will continue on IV fluid hydration. (5) Hypoxia Current Visit: Yes Status: Acute Plan to address problem: Possibly secondary to the underlying pneumonia. We will keep O2 saturation greater or equal to 94%. (6) Person under investigation for COVID-19 Current Visit: Yes Status: Acute Plan to address problem: Patient will be placed on isolation precautions. We await COVID-19 testing. We will also request infectious disease follow-up. (7) Sepsis Current Visit: Yes Status: Acute Qualifiers: Sepsis type: sepsis due to unspecified organism Sepsis acute organ dysfunction status: with acute organ dysfunction Severe sepsis acute organ dysfunction type: acute respiratory failure Acute respiratory failure type: with hypoxia Severe sepsis shock status: without septic shock Qualified Code(s): A41.9 - Sepsis, unspecified organism; R65.20 - Severe sepsis without septic shock; J96.01 - Acute respiratory failure with hypoxia Plan to address problem: Secondary to the underlying pneumonia and UTI. We will continue on IV fluid and empiric IV antibiotics. (8) UTI (urinary tract infection) Current Visit: Yes Status: Acute Qualifiers: Urinary tract infection type: acute cystitis Hematuria presence: with hematuria Qualified Code(s): N30.01 - Acute cystitis with hematuria Plan to address problem: We will continue on empiric IV antibiotics. Will await urine culture results. (9) DVT prophylaxis Current Visit: Yes Status: Acute Plan to address problem: Patient placed on subcutaneous Lovenox. (10) Full code status Current Visit: Yes Status: Acute History Interval history: Patient was seen and evaluated this morning Patient is on trach He is alert Hospitalist Physical - Physical exam Narrative exam: Patient is on trach The patient appeared well nourished and normally developed. Vital signs as documented. Head exam is unremarkable. No scleral icterus . Neck is without jugular venous distension, thyromegaly, or carotid bruits. Lungs are clear to auscultation. Cardiac exam reveals regular rate and Rhythm. Abdominal exam reveals PEG. Extremities are nonedematous and both femoral and pedal pulses are normal. SIFTING OPERATOR: Alert and oriented 3. 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 - Constitutional Vitals: Temp Pulse Resp BP Pulse Ox 97.9 F 144 H 40 H 140/90 95 03/04/20 07:45 03/04/20 07:25 03/04/20 06:46 03/04/20 07:25 03/04/20 07:25 General appearance: Present: no acute distress, cachectic, other (Dry oral mucosa,Trach in place) Results - Labs CBC & Chem 7: 03/04/20 02:59 03/04/20 02:59 Labs: Laboratory Last Values WBC 15.2 K/mm3 (4.5-11.0) H 03/04/20 02:59 RBC 3.56 M/mm3 (3.65-5.03) L 03/04/20 02:59 Hgb 10.9 gm/dl (11.8-15.2) L 03/04/20 02:59 Hct 33.4 % (35.5-45.6) L 03/04/20 02:59 MCV 94 fl (84-94) 03/04/20 02:59 MCH 31 pg (28-32) 03/04/20 02:59 MCHC 33 % (32-34) 03/04/20 02:59 RDW 17.5 % (13.2-15.2) H 03/04/20 02:59 Plt Count 195 K/mm3 (140-440) 03/04/20 02:59 Lymph % (Auto) 11.6 % (13.4-35.0) L 03/03/20 21:51 [place] % (Auto) 4.5 % (0.0-7.3) 03/03/20 21:51 Eos % (Auto) 0.0 % (0.0-4.3) 03/03/20 21:51 Baso % (Auto) 0.2 % (0.0-1.8) 03/03/20 21:51 Lymph # (Auto) 1.8 K/mm3 (1.2-5.4) 03/03/20 21:51 [place] # (Auto) 0.7 K/mm3 (0.0-0.8) 03/03/20 21:51 Eos # (Auto) 0.0 K/mm3 (0.0-0.4) 03/03/20 21:51 Baso # (Auto) 0.0 K/mm3 (0.0-0.1) 03/03/20 21:51 Add Manual Diff Complete 03/04/20 02:59 Total Counted 100 03/04/20 02:59 Seg Neutrophils % Transition Social Worker 03/04/20 02:59 Seg Neuts % (Manual) 93.0 % (40.0-70.0) H 03/04/20 02:59 Band Neutrophils % 0 % 03/04/20 02:59 Lymphocytes % (Manual) 5.0 % (13.4-35.0) L 03/04/20 02:59 Reactive Lymphs % (Man) 0 % 03/04/20 02:59 Monocytes % (Manual) 2.0 % (0.0-7.3) 03/04/20 02:59 Eosinophils % (Manual) 0 % (0.0-4.3) 03/04/20 02:59 Basophils % (Manual) 0 % (0.0-1.8) 03/04/20 02:59 Metamyelocytes % 0 % 03/04/20 02:59 Myelocytes % 0 % 03/04/20 02:59 Promyelocytes % 0 % 03/04/20 02:59 Blast Cells % 0 % 03/04/20 02:59 Nucleated RBC % Not Reportable 03/04/20 02:59 Seg Neutrophils # 13.0 K/mm3 (1.8-7.7) H 03/03/20 21:51 Seg Neutrophils # Man 14.1 K/mm3 (1.8-7.7) H 03/04/20 02:59 Band Neutrophils # 0.0 K/mm3 03/04/20 02:59 Lymphocytes # (Manual) 0.8 K/mm3 (1.2-5.4) L 03/04/20 02:59 Abs React Lymphs (Man) 0.0 K/mm3 03/04/20 02:59 Monocytes # (Manual) 0.3 K/mm3 (0.0-0.8) 03/04/20 02:59 Eosinophils # (Manual) 0.0 K/mm3 (0.0-0.4) 03/04/20 02:59 Basophils # (Manual) 0.0 K/mm3 (0.0-0.1) 03/04/20 02:59 Metamyelocytes # 0.0 K/mm3 03/04/20 02:59 Myelocytes # 0.0 K/mm3 03/04/20 02:59 Promyelocytes # 0.0 K/mm3 03/04/20 02:59 Blast Cells # 0.0 K/mm3 03/04/20 02:59 WBC Morphology Not Reportable 03/04/20 02:59 Hypersegmented Neuts Not Reportable 03/04/20 02:59 Hyposegmented Neuts Not Reportable 03/04/20 02:59 Hypogranular Neuts Not Reportable 03/04/20 02:59 Smudge Cells Not Reportable 03/04/20 02:59 Toxic Granulation Not Reportable 03/04/20 02:59 Toxic Vacuolation Not Reportable 03/04/20 02:59 Dohle Bodies Not Reportable 03/04/20 02:59 Pelger-Huet Anomaly Not Reportable 03/04/20 02:59 Mike Rods Not Reportable 03/04/20 02:59 Platelet Estimate Consistent w auto 03/04/20 02:59 Clumped Platelets Not Reportable 03/04/20 02:59 Plt Clumps, EDTA Not Reportable 03/04/20 02:59 Large Platelets Not Reportable 03/04/20 02:59 Giant Platelets Not Reportable 03/04/20 02:59 Platelet Satelliting Not Reportable 03/04/20 02:59 Plt Morphology Comment Not Reportable 03/04/20 02:59 RBC Morphology Not Reportable 03/04/20 02:59 Dimorphic RBCs Not Reportable 03/04/20 02:59 Polychromasia Not Reportable 03/04/20 02:59 Hypochromasia Few 03/04/20 02:59 Poikilocytosis Not Reportable 03/04/20 02:59 Anisocytosis Few 03/04/20 02:59 Microcytosis Not Reportable 03/04/20 02:59 Macrocytosis Not Reportable 03/04/20 02:59 Spherocytes Not Reportable 03/04/20 02:59 Pappenheimer Bodies Not Reportable 03/04/20 02:59 Sickle Cells Not Reportable 03/04/20 02:59 Target Cells Not Reportable 03/04/20 02:59 Tear Drop Cells Not Reportable 03/04/20 02:59 Ovalocytes Not Reportable 03/04/20 02:59 Helmet Cells Not Reportable 03/04/20 02:59 Watkins-[place]ock Bodies Not Reportable 03/04/20 02:59 [place] Rings Not Reportable 03/04/20 02:59 Marcos Cells Not Reportable 03/04/20 02:59 Bite Cells Not Reportable 03/04/20 02:59 Crenated Cell Not Reportable 03/04/20 02:59 Elliptocytes Not Reportable 03/04/20 02:59 Acanthocytes (Spur) Not Reportable 03/04/20 02:59 Rouleaux Not Reportable 03/04/20 02:59 Hemoglobin C Crystals Not Reportable 03/04/20 02:59 Schistocytes Not Reportable 03/04/20 02:59 Malaria parasites Not Reportable 03/04/20 02:59 Branden Bodies Not Reportable 03/04/20 02:59 Hem Pathologist Commnt No 03/04/20 02:59 PT 15.9 Sec. (12.2-14.9) H 03/04/20 02:59 INR 1.29 (0.87-1.13) H 03/04/20 02:59 D-Dimer 1415.56 ng/mlDDU (0-234) H 03/03/20 22:00 ABG pH 7.446 pH Units (7.350-7.450) 03/03/20 01:10 ABG pCO2 39.6 mm Hg 03/03/20 01:10 ABG pO2 173.4 mm Hg (80.0-90.0) H 03/03/20 01:10 ABG HCO3 26.7 mmol/L (20.0-26.0) H 03/03/20 01:10 ABG O2 Saturation 99.1 % (95.0-99.0) H 03/03/20 01:10 ABG O2 Content 20.8 (0.0-44) 03/03/20 01:10 ABG Base Excess 2.6 mmol/L (-2.0-3.0) 03/03/20 01:10 ABG Hemoglobin 11.6 gm/dl (14.0-18.0) L 03/03/20 01:10 ABG Carboxyhemoglobin 1.4 % (0.0-5.0) 03/03/20 01:10 ABG Methemoglobin 0.5 % (0.0-1.5) 03/03/20 01:10 Oxyhemoglobin 97.3 % (95.0-99.0) 03/03/20 01:10 FiO2 50 % 03/03/20 01:10 Sodium 152 mmol/L (137-145) H 03/04/20 02:59 Potassium 4.1 mmol/L (3.6-5.0) 03/04/20 02:59 Chloride 116.9 mmol/L (98-107) H 03/04/20 02:59 Carbon Dioxide 24 mmol/L (22-30) 03/04/20 02:59 Anion Gap 15 mmol/L 03/04/20 02:59 BUN 27 mg/dL (9-20) H 03/04/20 02:59 Creatinine 0.4 mg/dL (0.8-1.3) L 03/04/20 02:59 Estimated GFR > 60 ml/min 03/04/20 02:59 BUN/Creatinine Ratio 68 % 03/04/20 02:59 Glucose 127 mg/dL (75-100) H 03/04/20 02:59 Lactic Acid 0.80 mmol/L (0.7-2.0) 03/04/20 02:59 Calcium 9.1 mg/dL (8.4-10.2) 03/04/20 02:59 Ferritin 522.1 ng/mL (30.0-300.0) H 03/03/20 22:00 Total Bilirubin 0.40 mg/dL (0.1-1.2) 03/03/20 21:51 AST 24 units/L (5-40) 03/03/20 21:51 ALT 30 units/L (7-56) 03/03/20 21:51 Alkaline Phosphatase 92 units/L (35-129) 03/03/20 21:51 Lactate Dehydrogenase 240 units/L (91-180) H 03/03/20 22:00 C-Reactive Protein 17.20 mg/dL (0.00-1.30) H 03/03/20 22:00 Total Protein 8.9 g/dL (6.3-8.2) H 03/03/20 21:51 Albumin 2.8 g/dL (3.9-5) L 03/03/20 21:51 Albumin/Globulin Ratio 0.5 % 03/03/20 21:51 Urine Color Bing (Yellow) 03/03/20 22:15 Urine Turbidity Clear (Clear) 03/03/20 22:15 Urine pH 5.0 (5.0-7.0) 03/03/20 22:15 Ur Specific [place] 1.031 (1.003-1.030) H 03/03/20 22:15 Urine Protein 30 mg/dl mg/dL (Negative) 03/03/20 22:15 Urine Glucose (UA) Neg mg/dL (Negative) 03/03/20 22:15 Urine Ketones Neg mg/dL (Negative) 03/03/20 22:15 Urine Blood Neg (Negative) 03/03/20 22:15 Urine Nitrite Neg (Negative) 03/03/20 22:15 Urine Bilirubin Neg (Negative) 03/03/20 22:15 Urine Urobilinogen 4.0 mg/dL (<2.0) 03/03/20 22:15 Ur Leukocyte Esterase Tr (Negative) 03/03/20 22:15 Urine WBC (Auto) 8.0 /HPF (0.0-6.0) H 03/03/20 22:15 Urine RBC (Auto) 2.0 /HPF (0.0-6.0) 03/03/20 22:15 U Epithel Cells (Auto) 1.0 /HPF (0-13.0) 03/03/20 22:15 Urine Bacteria (Auto) 1+ /HPF (Negative) 03/03/20 22:15 Hyaline Casts 1 /LPF 03/03/20 22:15 Urine Mucus 1+ /HPF 03/03/20 22:15 Microbiology: Microbiology 03/03/20 21:57 Peripheral/Venous Blood Culture - Preliminary Culture in Progress 03/03/20 21:51 Peripheral/Venous Blood Culture - Preliminary Culture in Progress Sarah/IV: IV Catheter Type [Right INT / Saline Lock Forearm] Active Medications - Current Medications Current Medications: Generic Name Dose Route Start Last Admin Trade Name Freq PRN Reason Stop Dose Admin Enoxaparin Sodium 40 mg 03/04/20 22:00 Enoxaparin SUB-Q QDAY@2200 [facility] Protocol Hydrophilic Ointment 1 applic 03/03/20 22:31 Vaseline Lip Therapy TP Q2HR PRN Dry Lips Sodium Chloride 1,000 mls @ 75 mls/hr 03/03/20 23:45 03/04/20 05:55 Nacl 0.9% 1000 Ml IV 75 mls/hr DIRECT KESHAWN Administration Ceftriaxone Sodium 2 gm in 100 mls @ 200 mls/hr 03/04/20 10:00 Rocephin/Ns 2 Gm/100 Ml IV Q24HR [facility] Protocol Azithromycin 500 mg/ Sodium 250 mls @ 250 mls/hr 03/04/20 10:00 Chloride IV Q24HR [facility] Protocol Magnesium Hydroxide 30 ml 03/03/20 23:45 Milk Of Magnesia PO Q4H PRN Constipation Morphine Sulfate 2 mg 03/03/20 23:45 Morphine IV Q4H PRN Pain, Moderate (4-6) Multi-Ingred Cream/Lotion/Oil/Oint 1 applic 03/03/20 22:31 Artificial Tears Ophth Oint OU Q4HR PRN Dry Eye(s) Ondansetron HCl 4 mg 03/03/20 23:45 Zofran IV Q8H PRN Nausea And Vomiting Sodium Chloride 10 ml 03/04/20 10:00 Sodium Chloride Flush Syringe 10 Ml IV BID KESHAWN Sodium Chloride 10 ml 03/03/20 23:45 Sodium Chloride Flush Syringe 10 Ml IV PRN PRN LINE FLUSH
[2020-03-04] MEDS ORDERED: DEXTROSE 5% IN WATER 1,000 ML IV ONE ×2 (09:37→22:57)
[2020-03-04] MEDS ORDERED: AZITHROMYCIN 500 MG in SODIUM CHLORIDE 0.9% 250ML 250 ML IV SCH (10:00)
[2020-03-04] MEDS ORDERED: DEXTROSE 5% IN WATER 1,000 ML IV SCH ×2 (10:00→23:00)
[2020-03-04] MEDS ORDERED: cefTRIAXone/NS 2 GM/100 ML 2 GM/100 ML BAG IV SCH (10:00)
--- NOTE | 2020-03-04 13:19 | Consultation ---
History of Present Illness - Reason for Consult Consult date: 03/04/20 Pneumonia, COVID PUI Requesting physician: NICKY DE ANDA III - History of Present Illness The patient is a 64-year-old male with traumatic brain injury, hypertension, indwelling tracheostomy and PEG tube, [place] [facility] resident [facility] [place] was admitted to the hospital with fever, hypoxia. Chest x-ray in the ER revealed bilateral pneumonia. Labs were concerning for sepsis with leukocytosis, elevated CRP, mildly elevated procalcitonin. Infectious diseases was consulted for additional evaluation. COVID-19 PCR is pending. History is limited and is based on chart review. Review of Systems: reviewed in the chart, unable to obtain directly due to PPE preservation and minimize risk of transmission Past History Past Medical History: hypertension, other (Traumatic Brain injury) Past Surgical History: Other (Trach and peg placement) Social history: other (Resides in a retirement) Family history: no significant family history Medications and Allergies Allergies Allergy/AdvReac Type Severity Reaction Status Date / Time No Known Allergies Allergy Unverified 07/26/19 04:50 Active Meds: Active Medications Enoxaparin Sodium (Enoxaparin) 40 mg SUB-Q QDAY@2200 KESHAWN; Protocol Hydrophilic Ointment (Vaseline Lip Therapy) 1 applic TP Q2HR PRN PRN Reason: Dry Lips Ceftriaxone Sodium (Rocephin/Ns 2 Gm/100 Ml) 2 gm in 100 mls @ 200 mls/hr IV Q24HR KESHAWN; Protocol Last Admin: 03/04/20 11:15 Dose: 200 mls/hr Documented by: Azithromycin 500 mg/ Sodium (Chloride) 250 mls @ 250 mls/hr IV Q24HR KESHAWN; Protocol Last Admin: 03/04/20 10:17 Dose: 250 mls/hr Documented by: Dextrose ([email or web address]) 1,000 mls @ 75 mls/hr IV DIRECT KESHAWN Last Admin: 03/04/20 09:51 Dose: 75 mls/hr Documented by: Magnesium Hydroxide (Milk Of Magnesia) 30 ml PO Q4H PRN PRN Reason: Constipation Morphine Sulfate (Morphine) 2 mg IV Q4H PRN PRN Reason: Pain, Moderate (4-6) Multi-Ingred Cream/Lotion/Oil/Oint (Artificial Tears Ophth Oint) 1 applic OU Q4HR PRN PRN Reason: Dry Eye(s) Ondansetron HCl (Zofran) 4 mg IV Q8H PRN PRN Reason: Nausea And Vomiting Sodium Chloride (Sodium Chloride Flush Syringe 10 Ml) 10 ml IV BID KESHAWN Last Admin: 03/04/20 09:52 Dose: 10 ml Documented by: Sodium Chloride (Sodium Chloride Flush Syringe 10 Ml) 10 ml IV PRN PRN PRN Reason: LINE FLUSH Physical Examination - Physical Exam Narrative exam: Physical Exam (reviewed in chart due to PPE conservation and minimize risk of transmission) Constitutional: limited due to PPE conservation strategy Head, Ears, Nose: limited due to PPE conservation strategy Eyes: limited due to PPE conservation strategy Neck: limited due to PPE conservation strategy Oral: limited due to PPE conservation strategy Cardiovascular: limited due to PPE conservation strategy Respiratory: limited due to PPE conservation strategy GI: limited due to PPE conservation strategy Musculoskeletal: limited due to PPE conservation strategy Skin: limited due to PPE conservation strategy Hem/Lymphatic: limited due to PPE conservation strategy Psych: limited due to PPE conservation strategy Neurological: limited due to PPE conservation strategy - Constitutional Vitals: Vital Signs Temp Pulse Resp BP Pulse Ox 97.9 F 123 H 39 H 137/95 97 03/04/20 07:45 03/04/20 12:30 03/04/20 12:30 03/04/20 12:30 03/04/20 12:30 Temperature -Last 24 Hours Temperature 97.9 F Temperature 98.4 F Results - Labs CBC & Chem 7: 03/04/20 02:59 03/04/20 02:59 Labs: Abnormal lab results 03/03/20 03/03/20 03/03/20 Range/Units 01:10 21:51 21:51 WBC 15.5 H (4.5-11.0) K/mm3 RBC (3.65-5.03) M/mm3 Hgb (11.8-15.2) gm/dl Hct 35.3 L (35.5-45.6) % RDW 17.9 H (13.2-15.2) % Lymph % (Auto) 11.6 L (13.4-35.0) % Seg Neutrophils % 83.7 H (40.0-70.0) % Seg Neuts % (Manual) (40.0-70.0) % Lymphocytes % (Manual) (13.4-35.0) % Seg Neutrophils # 13.0 H (1.8-7.7) K/mm3 Seg Neutrophils # Man (1.8-7.7) K/mm3 Lymphocytes # (Manual) (1.2-5.4) K/mm3 PT (12.2-14.9) Sec. INR (0.87-1.13) D-Dimer (0-234) ng/mlDDU ABG pO2 173.4 H (80.0-90.0) mm Hg ABG HCO3 26.7 H (20.0-26.0) mmol/L ABG O2 Saturation 99.1 H (95.0-99.0) % ABG Hemoglobin 11.6 L (14.0-18.0) gm/dl Sodium 151 H (137-145) mmol/L Chloride 114.4 H (98-107) mmol/L BUN 29 H (9-20) mg/dL Creatinine 0.6 L (0.8-1.3) mg/dL Glucose 116 H (75-100) mg/dL Ferritin (30.0-300.0) ng/mL Lactate Dehydrogenase (91-180) units/L C-Reactive Protein (0.00-1.30) mg/dL Total Protein 8.9 H (6.3-8.2) g/dL Albumin 2.8 L (3.9-5) g/dL Ur Specific [place] (1.003-1.030) Urine WBC (Auto) (0.0-6.0) /HPF 03/03/20 03/03/20 03/03/20 Range/Units 22:00 22:00 22:00 WBC (4.5-11.0) K/mm3 RBC (3.65-5.03) M/mm3 Hgb (11.8-15.2) gm/dl Hct (35.5-45.6) % RDW (13.2-15.2) % Lymph % (Auto) (13.4-35.0) % Seg Neutrophils % (40.0-70.0) % Seg Neuts % (Manual) (40.0-70.0) % Lymphocytes % (Manual) (13.4-35.0) % Seg Neutrophils # (1.8-7.7) K/mm3 Seg Neutrophils # Man (1.8-7.7) K/mm3 Lymphocytes # (Manual) (1.2-5.4) K/mm3 PT (12.2-14.9) Sec. INR (0.87-1.13) D-Dimer 1415.56 H (0-234) ng/mlDDU ABG pO2 (80.0-90.0) mm Hg ABG HCO3 (20.0-26.0) mmol/L ABG O2 Saturation (95.0-99.0) % ABG Hemoglobin (14.0-18.0) gm/dl Sodium (137-145) mmol/L Chloride (98-107) mmol/L BUN (9-20) mg/dL Creatinine (0.8-1.3) mg/dL Glucose 106 H (75-100) mg/dL Ferritin 522.1 H (30.0-300.0) ng/mL Lactate Dehydrogenase 240 H (91-180) units/L C-Reactive Protein 17.20 H (0.00-1.30) mg/dL Total Protein (6.3-8.2) g/dL Albumin (3.9-5) g/dL Ur Specific [place] (1.003-1.030) Urine WBC (Auto) (0.0-6.0) /HPF 03/03/20 03/04/20 03/04/20 Range/Units 22:15 02:59 02:59 WBC 15.2 H (4.5-11.0) K/mm3 RBC 3.56 L (3.65-5.03) M/mm3 Hgb 10.9 L (11.8-15.2) gm/dl Hct 33.4 L (35.5-45.6) % RDW 17.5 H (13.2-15.2) % Lymph % (Auto) (13.4-35.0) % Seg Neutrophils % (40.0-70.0) % Seg Neuts % (Manual) 93.0 H (40.0-70.0) % Lymphocytes % (Manual) 5.0 L (13.4-35.0) % Seg Neutrophils # (1.8-7.7) K/mm3 Seg Neutrophils # Man 14.1 H (1.8-7.7) K/mm3 Lymphocytes # (Manual) 0.8 L (1.2-5.4) K/mm3 PT 15.9 H (12.2-14.9) Sec. INR 1.29 H (0.87-1.13) D-Dimer (0-234) ng/mlDDU ABG pO2 (80.0-90.0) mm Hg ABG HCO3 (20.0-26.0) mmol/L ABG O2 Saturation (95.0-99.0) % ABG Hemoglobin (14.0-18.0) gm/dl Sodium (137-145) mmol/L Chloride (98-107) mmol/L BUN (9-20) mg/dL Creatinine (0.8-1.3) mg/dL Glucose (75-100) mg/dL Ferritin (30.0-300.0) ng/mL Lactate Dehydrogenase (91-180) units/L C-Reactive Protein (0.00-1.30) mg/dL Total Protein (6.3-8.2) g/dL Albumin (3.9-5) g/dL Ur Specific [place] 1.031 H (1.003-1.030) Urine WBC (Auto) 8.0 H (0.0-6.0) /HPF 03/04/20 Range/Units 02:59 WBC (4.5-11.0) K/mm3 RBC (3.65-5.03) M/mm3 Hgb (11.8-15.2) gm/dl Hct (35.5-45.6) % RDW (13.2-15.2) % Lymph % (Auto) (13.4-35.0) % Seg Neutrophils % (40.0-70.0) % Seg Neuts % (Manual) (40.0-70.0) % Lymphocytes % (Manual) (13.4-35.0) % Seg Neutrophils # (1.8-7.7) K/mm3 Seg Neutrophils # Man (1.8-7.7) K/mm3 Lymphocytes # (Manual) (1.2-5.4) K/mm3 PT (12.2-14.9) Sec. INR (0.87-1.13) D-Dimer (0-234) ng/mlDDU ABG pO2 (80.0-90.0) mm Hg ABG HCO3 (20.0-26.0) mmol/L ABG O2 Saturation (95.0-99.0) % ABG Hemoglobin (14.0-18.0) gm/dl Sodium 152 H (137-145) mmol/L Chloride 116.9 H (98-107) mmol/L BUN 27 H (9-20) mg/dL Creatinine 0.4 L (0.8-1.3) mg/dL Glucose 127 H (75-100) mg/dL Ferritin (30.0-300.0) ng/mL Lactate Dehydrogenase (91-180) units/L C-Reactive Protein (0.00-1.30) mg/dL Total Protein (6.3-8.2) g/dL Albumin (3.9-5) g/dL Ur Specific [place] (1.003-1.030) Urine WBC (Auto) (0.0-6.0) /HPF - Imaging and Cardiology Chest x-ray: report reviewed, image reviewed (patchy bilateral infiltrates) Assessment and Plan Cultures: SARS CoV2 PCR: Pending 03/03/2020 blood culture: In process 03/03/2020 sputum culture: In process A/P: 64-year-old male with traumatic brain injury, hypertension, indwelling tracheostomy and PEG tube, [place] [facility] [place] was admitted to the hospital with fever, hypoxia: #Sepsis, leucocytosis likely secondary to bilateral pneumonia. UA without significant pyuria. Patient has indwelling catheter. Urine culture likely to be positive. #Acute on chronic respiratory failure: With chronic tracheostomy. #Hypernatremia Recs: Follow-up COVID-19 PCR, if positive, treat with steroids and remdesivir Empiric IV cefepime and vancomycin, monitor renal function and vancomycin trough Follow-up blood and sputum cultures Gaston Garcia MD, FACP [facility] O: [phone] F: [phone]
--- NOTE | 2020-03-04 13:47 | Consultation ---
History of Present Illness Consult date: 03/04/20 Requesting physician: JOSEFINA KEITH Reason for consult: other (Critical care management) History of present illness: The patient is a 64-year-old male with traumatic brain injury, hypertension, indwelling tracheostomy and PEG tube, [facility] resident at [place] was admitted to the hospital with fever, hypoxia. Chest x-ray in the ER revealed bilateral pneumonia. Labs were concerning for sepsis with leukocytosis, elevated CRP, mildly elevated procalcitonin. Patient has been He has been admitted for a pneumonia with possible COVID-19, dehydration, urinary tract infection and sepsis I have been consulted for critical care management. Thank you History is as documented in the medical records. He is s/p trach to [facility], with a helmet on and is unable to provide any history. Past History Past Medical History: hypertension, other (Traumatic Brain injury) Past Surgical History: Other (Trach and peg placement) Social history: other (Resides in a skilled nursing) Family history: no significant family history Medications and Allergies Allergies Allergy/AdvReac Type Severity Reaction Status Date / Time No Known Allergies Allergy Unverified 07/26/19 04:50 Active Meds: Active Medications Enoxaparin Sodium (Enoxaparin) 40 mg SUB-Q QDAY@2200 KESHAWN; Protocol Hydrophilic Ointment (Vaseline Lip Therapy) 1 applic TP Q2HR PRN PRN Reason: Dry Lips Dextrose (D5w) 1,000 mls @ 75 mls/hr IV DIRECT KESHAWN Last Admin: 03/04/20 09:51 Dose: 75 mls/hr Documented by: Cefepime HCl (Cefepime/Ns 2 Gm/100 Ml) 2 gm in 100 mls @ 200 mls/hr IV Q8HR KESHAWN; Protocol Vancomycin HCl 1,250 mg/ (Sodium Chloride) 525 mls @ 333 mls/hr IV Q12HR KESHAWN; Protocol Vancomycin HCl 1,750 mg/ (Sodium Chloride) 535 mls @ 333.333 mls/hr IV ONCE ONE Stop: 03/04/20 15:36 Magnesium Hydroxide (Milk Of Magnesia) 30 ml PO Q4H PRN PRN Reason: Constipation Morphine Sulfate (Morphine) 2 mg IV Q4H PRN PRN Reason: Pain, Moderate (4-6) Multi-Ingred Cream/Lotion/Oil/Oint (Artificial Tears Ophth Oint) 1 applic OU Q4HR PRN PRN Reason: Dry Eye(s) Ondansetron HCl (Zofran) 4 mg IV Q8H PRN PRN Reason: Nausea And Vomiting Sodium Chloride (Sodium Chloride Flush Syringe 10 Ml) 10 ml IV BID KESHAWN Last Admin: 03/04/20 09:52 Dose: 10 ml Documented by: Sodium Chloride (Sodium Chloride Flush Syringe 10 Ml) 10 ml IV PRN PRN PRN Reason: LINE FLUSH Physical Examination Vital signs: Vital Signs Temp Pulse Resp BP Pulse Ox 98.4 F 84 37 H 122/71 98 03/03/20 21:30 03/03/20 21:30 03/03/20 21:30 03/03/20 21:30 03/03/20 21:30 Reviewed General appearance: other (trach to MVS, helmet ) Eyes: non-icteric ENT: oropharynx moist Neck: supple, no lymphadenopathy, no JVD Effort: mildly labored Ascultation: Bilateral: diminished breath sounds, rhonchi Cardiovascular: regular rate and rhythm, other (S1,S2) Gastrointestinal: normoactive bowel sounds, soft, non-tender, non-distended, other (PEG in place) Integumentary: normal Extremities: no cyanosis, no edema, pulses normal pupils equal and round, unable to assess other (unable to assess) Results - Laboratory Findings CBC and BMP: 03/04/20 02:59 03/04/20 02:59 ABG ABG pH 7.446 pH Units (7.350-7.450) 03/03/20 01:10 ABG pCO2 39.6 mm Hg 03/03/20 01:10 ABG pO2 173.4 mm Hg (80.0-90.0) H 03/03/20 01:10 ABG O2 Saturation 99.1 % (95.0-99.0) H 03/03/20 01:10 PT/INR, D-dimer PT 15.9 Sec. (12.2-14.9) H 03/04/20 02:59 INR 1.29 (0.87-1.13) H 03/04/20 02:59 D-Dimer 1415.56 ng/mlDDU (0-234) H 03/03/20 22:00 Abnormal lab findings: Abnormal Labs 03/03/20 03/03/2003/03/20 01:10 21:51 21:51 WBC 15.5 H RBC Hgb Hct 35.3 L RDW 17.9 H Lymph % (Auto) 11.6 L Seg Neutrophils % 83.7 H Seg Neuts % (Manual) Lymphocytes % (Manual) Seg Neutrophils # 13.0 H Seg Neutrophils # Man Lymphocytes # (Manual) PT INR D-Dimer ABG pO2 173.4 H ABG HCO3 26.7 H ABG O2 Saturation 99.1 H ABG Hemoglobin 11.6 L Sodium 151 H Chloride 114.4 H BUN 29 H Creatinine 0.6 L Glucose 116 H Ferritin Lactate Dehydrogenase C-Reactive Protein Total Protein 8.9 H Albumin 2.8 L Ur Specific [place] Urine WBC (Auto) 03/03/20 03/03/20 03/03/20 22:00 22:00 22:00 WBC RBC Hgb Hct RDW Lymph % (Auto) Seg Neutrophils % Seg Neuts % (Manual) Lymphocytes % (Manual) Seg Neutrophils # Seg Neutrophils # Man Lymphocytes # (Manual) PT INR D-Dimer 1415.56 H ABG pO2 ABG HCO3 ABG O2 Saturation ABG Hemoglobin Sodium Chloride BUN Creatinine Glucose 106 H Ferritin 522.1 H Lactate Dehydrogenase 240 H C-Reactive Protein 17.20 H Total Protein Albumin Ur Specific [place] Urine WBC (Auto) 03/03/20 03/04/20 03/04/20 22:15 02:59 02:59 WBC 15.2 H RBC 3.56 L Hgb 10.9 L Hct 33.4 L RDW 17.5 H Lymph % (Auto) Seg Neutrophils % Seg Neuts % (Manual) 93.0 H Lymphocytes % (Manual) 5.0 L Seg Neutrophils # Seg Neutrophils # Man 14.1 H Lymphocytes # (Manual) 0.8 L PT 15.9 H INR 1.29 H D-Dimer ABG pO2 ABG HCO3 ABG O2 Saturation ABG Hemoglobin Sodium Chloride BUN Creatinine Glucose Ferritin Lactate Dehydrogenase C-Reactive Protein Total Protein Albumin Ur Specific [place] 1.031 H Urine WBC (Auto) 8.0 H 03/04/20 02:59 WBC RBC Hgb Hct RDW Lymph % (Auto) Seg Neutrophils % Seg Neuts % (Manual) Lymphocytes % (Manual) Seg Neutrophils # Seg Neutrophils # Man Lymphocytes # (Manual) PT INR D-Dimer ABG pO2 ABG HCO3 ABG O2 Saturation ABG Hemoglobin Sodium 152 H Chloride 116.9 H BUN 27 H Creatinine 0.4 L Glucose 127 H Ferritin Lactate Dehydrogenase C-Reactive Protein Total Protein Albumin Ur Specific [place] Urine WBC (Auto) Assessment and Plan Sepsis, leucocytosis likely secondary to bilateral pneumonia. Acute and chronic hypoxemic respiratory failure, on MVS Chronic tracheostomy Bilateral pneumonia [id number] infection Oropharyngeal dysphagia s/p PEG Chronic indwelling Martinez cather h/o TBI with chronic encephalopathy Hypernatremia - VAP bundle addressed, aspiration precautions HOB >40 -Trach care, airway clearance, secretion management -ABG, CXR in am -CBC, BMP in am -Adjust minute ventilation as indicated fro better gas-exchange -Supplemental oxygen, wean for O2 sats>90% -lung protective strategies -Bronchodilators with pulmonary hygiene per RT - Daily assessment for readiness to wean, SAT and SBT assessment as tolerated - wean per pulmonary driven protocols otherwise - intermittent Fentanyl for target RASS 0 to -1 -Antibiotics, follow cultures and de-escalate as indicated ( treat for HAP- Cefepime and Vancomycin per ID) -Enteric nutritonal support -Accuchecks with glycemic control per SSI (While critically ill target blood glucose of 140-180 mg/dL; avoid hypoglycemia) - avoid nephrotoxins, renally dose all medications -Free water via PEG tube for hypernatremia, hypotonic solution -Chronic martinez, catheter care - continue to avoid benzodiazepines, reduce the possibility of delirium - Maintenance of sleep-wake cycle, avoid delirium - Stress ulcer and VTE prophylaxis ( Enoxaparin, add Famotidine) - PT/OT/ROM exercises - Mobility protocol, off loading, frequent turning per facility protocol to prevent pressure ulcers - Monitor hemodynamics closely -Airborne, and contact isolation for PUI-COVID per facility protocol - continue other care per attending / other consultants .... Re-evaluate in am & prn CONDITION: CRITICAL PROGNOSIS: GUARDED CODE STATUS: FULL CODE The high probability of a clinically significant, sudden or life-threatening deterioration of the [respiratory, & neurologic] system(s) required my full and direct attention, intervention and personal management. The aggregate critical care time was [35] minutes without overlap. Time includes spent on; [x] Data Review and interpretation [x] Patient assessment and monitoring of vital signs [x] Documentation [x] Medication orders and management
[2020-03-04] MEDS ORDERED: VANCOMYCIN 1,750 MG in SODIUM CHLORIDE 0.9% 500 ML 500 ML IV ONE (14:00)
[2020-03-04] MEDS ORDERED: VANCOMYCIN PHARMACY TO DOSE IV SCH (14:00)
[2020-03-04 16:36] LABS: ABG Base Excess 1.5 mmol/L (-2.0-3.0); ABG HCO3 25.3 mmol/L (20.0-26.0); ABG Methemoglobin 0.5 % (0.0-1.5); ABG Oxygen Saturation 97.8 % (95.0-99.0); ABG PCO2 37.2 mm Hg; ABG PH 7.451 pH Units (7.350-7.450); ABG PO2 102.9 mm Hg (80.0-90.0)
[2020-03-04] MEDS: FREE WATER PO SCH (21:30)
[2020-03-04] MEDS ORDERED: ENOXAPARIN 40 MG/0.4 ML INJ SUB-Q ONE (22:55)
[2020-03-04] MEDS ORDERED: CEFEPIME/NS 2 GM/100 ML 2 GM/100 ML BAG IV ONE (22:56)
[2020-03-04] MEDS ORDERED: LIP THERAPY VASELINE TP ONE (22:56)
[2020-03-04] MEDS: CEFEPIME/NS 2 GM/100 ML 2 GM/100 ML BAG IV SCH (23:11)
[2020-03-04] MEDS: ENOXAPARIN 40 MG/0.4 ML INJ SUB-Q SCH (23:12)
[2020-03-05] MEDS: FREE WATER PO SCH ×6 (00:30→21:00)
--- NOTE | 2020-03-05 00:41 | XRay Report ---
CHEST - 1 VIEW INDICATION: follow up respiratory failure COMPARISON: Yesterday FINDINGS: SUPPORT DEVICES: Stable support device positioning. HEART: Stable cardiomediastinal silhouette. LUNGS/PLEURA: Persistent mild patchy right basilar airspace disease with slightly improved aeration. ADDITIONAL FINDINGS: Multiple old right-sided rib fractures again noted. IMPRESSION: Slightly improved aeration in patchy right basilar airspace disease. Signer Name: Jimbo Leroy MD Signed: 03/05/2020 12:36 AM Workstation Name: [id number]
[2020-03-05 04:13] LABS: ABG Base Excess 1.8 mmol/L (-2.0-3.0); ABG HCO3 24.7 mmol/L (20.0-26.0); ABG Methemoglobin 0.4 % (0.0-1.5); ABG Oxygen Saturation 98.6 % (95.0-99.0); ABG PCO2 32.5 mm Hg; ABG PH 7.498 pH Units (7.350-7.450); ABG PO2 122.7 mm Hg (80.0-90.0)
[2020-03-05 06:31] LABS: Blood Urea Nitrogen 29 mg/dL (9-20); Calcium 9.1 mg/dL (8.4-10.2); Hemolysis Index 1
[2020-03-05 06:32] LABS: BUN/Creatinine Ratio 58
[2020-03-05 06:37] LABS: Basophils % (Auto) 0.1 % (0.0-1.8); Hematocrit 31.4 % (35.5-45.6); Hemoglobin 10.3 gm/dl (11.8-15.2); Lymphocytes # (Auto) 1.9 K/mm3 (1.2-5.4); Lymphocytes % (Auto) 10.9 % (13.4-35.0); Mean Corpuscular HGB Conc 33 % (32-34); Mean Corpuscular Volume 94 fl (84-94); Monocytes # (Auto) 0.6 K/mm3 (0.0-0.8); Monocytes % (Auto) 3.7 % (0.0-7.3); Platelet Count 191 K/mm3 (140-440); Red Blood Count 3.35 M/mm3 (3.65-5.03); Red Cell Distribution Width 17.2 % (13.2-15.2)
[2020-03-05] MEDS ORDERED: CEFEPIME/NS 2 GM/100 ML 2 GM/100 ML BAG IV ONE ×2 (07:02→22:48)
[2020-03-05] MEDS: CEFEPIME/NS 2 GM/100 ML 2 GM/100 ML BAG IV SCH ×3 (07:10→22:53)
[2020-03-05] MEDS ORDERED: FAMOTIDINE 20 MG/2 ML INJ IV ONE (08:17)
[2020-03-05] MEDS ORDERED: FAMOTIDINE 20 MG TAB ONE (08:21)
--- NOTE | 2020-03-05 09:59 | Progress Note ---
Assessment and Plan Assessment and plan: (1) Pneumonia Current Visit: Yes Status: Acute Qualifiers: Pneumonia type: due to unspecified organism Laterality: bilateral Lung location: unspecified part of lung Qualified Code(s): J18.9 - Pneumonia, unspecified organism Plan to address problem: Patient commenced on empiric IV antibiotics. We await culture results. (2) Respiratory failure Current Visit: Yes Status: Acute Qualifiers: Chronicity: acute Respiratory failure complication: hypoxia Qualified Code(s): J96.01 - Acute respiratory failure with hypoxia Plan to address problem: Possibly secondary to the underlying pneumonia with possible Covid. Patient has been on trach and being admitted into the intensive care unit. Will request integrated logistics support manager follow-up. (3) Dehydration Current Visit: Yes Status: Acute Plan to address problem: We will place on IV fluid and monitor chemistry. (4) Hypernatremia Current Visit: Yes Status: Acute Plan to address problem: Possibly secondary to the dehydration we will continue on IV fluid hydration. (5) Hypoxia Current Visit: Yes Status: Acute Plan to address problem: Possibly secondary to the underlying pneumonia. We will keep O2 saturation greater or equal to 94%. (6) Person under investigation for COVID-19 Current Visit: Yes Status: Acute Plan to address problem: Patient will be placed on isolation precautions. We await COVID-19 testing. We will also request infectious disease follow-up. (7) Sepsis Current Visit: Yes Status: Acute Qualifiers: Sepsis type: sepsis due to unspecified organism Sepsis acute organ dysfunction status: with acute organ dysfunction Severe sepsis acute organ dysfunction type: acute respiratory failure Acute respiratory failure type: with hypoxia Severe sepsis shock status: without septic shock Qualified Code(s): A41.9 - Sepsis, unspecified organism; R65.20 - Severe sepsis without septic shock; J96.01 - Acute respiratory failure with hypoxia Plan to address problem: Secondary to the underlying pneumonia and UTI. We will continue on IV fluid and empiric IV antibiotics. (8) UTI (urinary tract infection) Current Visit: Yes Status: Acute Qualifiers: Urinary tract infection type: acute cystitis Hematuria presence: with hematuria Qualified Code(s): N30.01 - Acute cystitis with hematuria Plan to address problem: We will continue on empiric IV antibiotics. Will await urine culture results. (9) DVT prophylaxis Current Visit: Yes Status: Acute Plan to address problem: Patient placed on subcutaneous Lovenox. (10) Full code status Current Visit: Yes Status: Acute 03/05/2020 -Patient is admitted for acute on chronic respiratory failure and currently on and requiring mechanical ventilation. Continue with IV antibiotics for UTI and sepsis. COVID-19 test is done and is negative. Pouncer Machine consulted. Continue with the current management. History Interval history: Patient was seen and evaluated this morning Patient is on trach and vent He is alert Hospitalist Physical - Physical exam Narrative exam: Patient is on trach and vent The patient appeared well nourished and normally developed. Vital signs as documented. Head exam is unremarkable. No scleral icterus . Neck is without jugular venous distension, thyromegaly, or carotid bruits. Lungs are clear to auscultation. Cardiac exam reveals regular rate and Rhythm. Abdominal exam reveals PEG. Extremities are nonedematous and both femoral and pedal pulses are normal. TITLE CAMERA OPERATOR: Alert. 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 - Constitutional Vitals: Temp Pulse Resp BP Pulse Ox 98.4 F 76 26 H 115/76 96 03/05/20 06:50 03/05/20 08:29 03/05/20 06:45 03/05/20 08:29 03/05/20 08:30 General appearance: Present: no acute distress, cachectic, other (Dry oral mucosa,Trach in place) Results - Labs CBC & Chem 7: 03/05/20 05:32 03/05/20 05:32 Labs: Laboratory Last Values WBC 17.4 K/mm3 (4.5-11.0) H 03/05/20 05:32 RBC 3.35 M/mm3 (3.65-5.03) L 03/05/20 05:32 Hgb 10.3 gm/dl (11.8-15.2) L 03/05/20 05:32 Hct 31.4 % (35.5-45.6) L 03/05/20 05:32 MCV 94 fl (84-94) 03/05/20 05:32 MCH 31 pg (28-32) 03/05/20 05:32 MCHC 33 % (32-34) 03/05/20 05:32 RDW 17.2 % (13.2-15.2) H 03/05/20 05:32 Plt Count 191 K/mm3 (140-440) 03/05/20 05:32 Lymph % (Auto) 10.9 % (13.4-35.0) L 03/05/20 05:32 Mitchell % (Auto) 3.7 % (0.0-7.3) 03/05/20 05:32 Eos % (Auto) 0.0 % (0.0-4.3) 03/05/20 05:32 Baso % (Auto) 0.1 % (0.0-1.8) 03/05/20 05:32 Lymph # (Auto) 1.9 K/mm3 (1.2-5.4) 03/05/20 05:32 Mitchell # (Auto) 0.6 K/mm3 (0.0-0.8) 03/05/20 05:32 Eos # (Auto) 0.0 K/mm3 (0.0-0.4) 03/05/20 05:32 Baso # (Auto) 0.0 K/mm3 (0.0-0.1) 03/05/20 05:32 Add Manual Diff Complete 03/04/20 02:59 Total Counted 100 03/04/20 02:59 Seg Neutrophils % 85.3 % (40.0-70.0) H 03/05/20 05:32 Seg Neuts % (Manual) 93.0 % (40.0-70.0) H 03/04/20 02:59 Band Neutrophils % 0 % 03/04/20 02:59 Lymphocytes % (Manual) 5.0 % (13.4-35.0) L 03/04/20 02:59 Reactive Lymphs % (Man) 0 % 03/04/20 02:59 Monocytes % (Manual) 2.0 % (0.0-7.3) 03/04/20 02:59 Eosinophils % (Manual) 0 % (0.0-4.3) 03/04/20 02:59 Basophils % (Manual) 0 % (0.0-1.8) 03/04/20 02:59 Metamyelocytes % 0 % 03/04/20 02:59 Myelocytes % 0 % 03/04/20 02:59 Promyelocytes % 0 % 03/04/20 02:59 Blast Cells % 0 % 03/04/20 02:59 Nucleated RBC % Not Reportable 03/04/20 02:59 Seg Neutrophils # 14.8 K/mm3 (1.8-7.7) H 03/05/20 05:32 Seg Neutrophils # Man 14.1 K/mm3 (1.8-7.7) H 03/04/20 02:59 Band Neutrophils # 0.0 K/mm3 03/04/20 02:59 Lymphocytes # (Manual) 0.8 K/mm3 (1.2-5.4) L 03/04/20 02:59 Abs React Lymphs (Man) 0.0 K/mm3 03/04/20 02:59 Monocytes # (Manual) 0.3 K/mm3 (0.0-0.8) 03/04/20 02:59 Eosinophils # (Manual) 0.0 K/mm3 (0.0-0.4) 03/04/20 02:59 Basophils # (Manual) 0.0 K/mm3 (0.0-0.1) 03/04/20 02:59 Metamyelocytes # 0.0 K/mm3 03/04/20 02:59 Myelocytes # 0.0 K/mm3 03/04/20 02:59 Promyelocytes # 0.0 K/mm3 03/04/20 02:59 Blast Cells # 0.0 K/mm3 03/04/20 02:59 WBC Morphology Not Reportable 03/04/20 02:59 Hypersegmented Neuts Not Reportable 03/04/20 02:59 Hyposegmented Neuts Not Reportable 03/04/20 02:59 Hypogranular Neuts Not Reportable 03/04/20 02:59 Smudge Cells Not Reportable 03/04/20 02:59 Toxic Granulation Not Reportable 03/04/20 02:59 Toxic Vacuolation Not Reportable 03/04/20 02:59 Dohle Bodies Not Reportable 03/04/20 02:59 Pelger-Huet Anomaly Not Reportable 03/04/20 02:59 Mike Rods Not Reportable 03/04/20 02:59 Platelet Estimate Consistent w auto 03/04/20 02:59 Clumped Platelets Not Reportable 03/04/20 02:59 Plt Clumps, EDTA Not Reportable 03/04/20 02:59 Large Platelets Not Reportable 03/04/20 02:59 Giant Platelets Not Reportable 03/04/20 02:59 Platelet Satelliting Not Reportable 03/04/20 02:59 Plt Morphology Comment Not Reportable 03/04/20 02:59 RBC Morphology Not Reportable 03/04/20 02:59 Dimorphic RBCs Not Reportable 03/04/20 02:59 Polychromasia Not Reportable 03/04/20 02:59 Hypochromasia Few 03/04/20 02:59 Poikilocytosis Not Reportable 03/04/20 02:59 Anisocytosis Few 03/04/20 02:59 Microcytosis Not Reportable 03/04/20 02:59 Macrocytosis Not Reportable 03/04/20 02:59 Spherocytes Not Reportable 03/04/20 02:59 Pappenheimer Bodies Not Reportable 03/04/20 02:59 Sickle Cells Not Reportable 03/04/20 02:59 Target Cells Not Reportable 03/04/20 02:59 Tear Drop Cells Not Reportable 03/04/20 02:59 Ovalocytes Not Reportable 03/04/20 02:59 Helmet Cells Not Reportable 03/04/20 02:59 Watkins-Sargeant Bodies Not Reportable 03/04/20 02:59 Hurley Rings Not Reportable 03/04/20 02:59 Marcos Cells Not Reportable 03/04/20 02:59 Bite Cells Not Reportable 03/04/20 02:59 Crenated Cell Not Reportable 03/04/20 02:59 Elliptocytes Not Reportable 03/04/20 02:59 Acanthocytes (Spur) Not Reportable 03/04/20 02:59 Rouleaux Not Reportable 03/04/20 02:59 Hemoglobin C Crystals Not Reportable 03/04/20 02:59 Schistocytes Not Reportable 03/04/20 02:59 Malaria parasites Not Reportable 03/04/20 02:59 Branden Bodies Not Reportable 03/04/20 02:59 Hem Pathologist Commnt No 03/04/20 02:59 PT 15.9 Sec. (12.2-14.9) H 03/04/20 02:59 INR 1.29 (0.87-1.13) H 03/04/20 02:59 D-Dimer 1415.56 ng/mlDDU (0-234) H 03/03/20 22:00 ABG pH 7.498 pH Units (7.350-7.450) H 03/05/20 04:00 ABG pCO2 32.5 mm Hg 03/05/20 04:00 ABG pO2 122.7 mm Hg (80.0-90.0) H 03/05/20 04:00 ABG HCO3 24.7 mmol/L (20.0-26.0) 03/05/20 04:00 ABG O2 Saturation 98.6 % (95.0-99.0) 03/05/20 04:00 ABG O2 Content 14.1 (0.0-44) 03/05/20 04:00 ABG Base Excess 1.8 mmol/L (-2.0-3.0) 03/05/20 04:00 ABG Hemoglobin 10.2 gm/dl (14.0-18.0) L 03/05/20 04:00 ABG Carboxyhemoglobin 1.4 % (0.0-5.0) 03/05/20 04:00 ABG Methemoglobin 0.4 % (0.0-1.5) 03/05/20 04:00 Oxyhemoglobin 96.7 % (95.0-99.0) 03/05/20 04:00 FiO2 25 % 03/05/20 04:00 Sodium 150 mmol/L (137-145) H 03/05/20 05:32 Potassium 3.4 mmol/L (3.6-5.0) L 03/05/20 05:32 Chloride 115.0 mmol/L (98-107) H 03/05/20 05:32 Carbon Dioxide 25 mmol/L (22-30) 03/05/20 05:32 Anion Gap 13 mmol/L 03/05/20 05:32 BUN 29 mg/dL (9-20) H 03/05/20 05:32 Creatinine 0.5 mg/dL (0.8-1.3) L 03/05/20 05:32 Estimated GFR > 60 ml/min 03/05/20 05:32 BUN/Creatinine Ratio 58 % 03/05/20 05:32 Glucose 100 mg/dL (75-100) 03/05/20 05:32 Lactic Acid 0.80 mmol/L (0.7-2.0) 03/04/20 02:59 Calcium 9.1 mg/dL (8.4-10.2) 03/05/20 05:32 Ferritin 522.1 ng/mL (30.0-300.0) H 03/03/20 22:00 Total Bilirubin 0.40 mg/dL (0.1-1.2) 03/03/20 21:51 AST 24 units/L (5-40) 03/03/20 21:51 ALT 30 units/L (7-56) 03/03/20 21:51 Alkaline Phosphatase 92 units/L (35-129) 03/03/20 21:51 Lactate Dehydrogenase 240 units/L (91-180) H 03/03/20 22:00 C-Reactive Protein 17.20 mg/dL (0.00-1.30) H 03/03/20 22:00 Total Protein 8.9 g/dL (6.3-8.2) H 03/03/20 21:51 Albumin 2.8 g/dL (3.9-5) L 03/03/20 21:51 Albumin/Globulin Ratio 0.5 % 03/03/20 21:51 Procalcitonin 0.31 ng/mL (<0.15) 03/03/20 22:00 Urine Color Bing (Yellow) 03/03/20 22:15 Urine Turbidity Clear (Clear) 03/03/20 22:15 Urine pH 5.0 (5.0-7.0) 03/03/20 22:15 Ur Specific [place] 1.031 (1.003-1.030) H 03/03/20 22:15 Urine Protein 30 mg/dl mg/dL (Negative) 03/03/20 22:15 Urine Glucose (UA) Neg mg/dL (Negative) 03/03/20 22:15 Urine Ketones Neg mg/dL (Negative) 03/03/20 22:15 Urine Blood Neg (Negative) 03/03/20 22:15 Urine Nitrite Neg (Negative) 03/03/20 22:15 Urine Bilirubin Neg (Negative) 03/03/20 22:15 Urine Urobilinogen 4.0 mg/dL (<2.0) 03/03/20 22:15 Ur Leukocyte Esterase Tr (Negative) 03/03/20 22:15 Urine WBC (Auto) 8.0 /HPF (0.0-6.0) H 03/03/20 22:15 Urine RBC (Auto) 2.0 /HPF (0.0-6.0) 03/03/20 22:15 U Epithel Cells (Auto) 1.0 /HPF (0-13.0) 03/03/20 22:15 Urine Bacteria (Auto) 1+ /HPF (Negative) 03/03/20 22:15 Hyaline Casts 1 /LPF 03/03/20 22:15 Urine Mucus 1+ /HPF 03/03/20 22:15 Coronavirus (PCR) Negative (Negative) 03/04/20 09:16 Microbiology: Microbiology 03/03/20 21:57 Peripheral/Venous Blood Culture - Preliminary NO GROWTH AFTER 24 HOURS 03/03/20 21:51 Peripheral/Venous Blood Culture - Preliminary NO GROWTH AFTER 24 HOURS 03/03/20 Unknown Tracheal Aspirate Sputum Culture - Preliminary Sarah/IV: IV Catheter Type [Right INT / Saline Lock Forearm] Active Medications - Current Medications Current Medications: Generic Name Dose Route Start Last Admin Trade Name Freq PRN Reason Stop Dose Admin Enoxaparin Sodium 40 mg 03/04/20 22:00 03/04/20 23:12 Enoxaparin SUB-Q 40 mg QDAY@2200 KESHAWN Administration Protocol Famotidine 20 mg 03/05/20 10:00 Pepcid FEEDTUBE QDAY KESHAWN Hydrophilic Ointment 1 applic 03/03/20 22:31 Vaseline Lip Therapy TP Q2HR PRN Dry Lips Dextrose 1,000 mls @ 75 mls/hr 03/04/20 10:00 03/04/20 09:51 D5w IV 75 mls/hr DIRECT KESHAWN Administration Cefepime HCl 2 gm in 100 mls @ 200 mls/hr 03/04/20 22:00 03/05/20 07:10 Cefepime/Ns 2 Gm/100 Ml IV 200 mls/hr Q8HR KESHAWN Administration Protocol Vancomycin HCl 1,250 mg/ 525 mls @ 333 mls/hr 03/05/20 10:00 Sodium Chloride IV Q12HR KESHAWN Protocol Dextrose 1,000 mls @ 75 mls/hr 03/04/20 23:00 03/04/20 23:11 D5w IV 75 mls/hr DIRECT KESHAWN Administration Magnesium Hydroxide 30 ml 03/03/20 23:45 Milk Of Magnesia PO Q4H PRN Constipation Morphine Sulfate 2 mg 03/03/20 23:45 Morphine IV Q4H PRN Pain, Moderate (4-6) Multi-Ingred Cream/Lotion/Oil/Oint 1 applic 03/03/20 22:31 Artificial Tears Ophth Oint OU Q4HR PRN Dry Eye(s) Ondansetron HCl 4 mg 03/03/20 23:45 Zofran IV Q8H PRN Nausea And Vomiting Sodium Chloride 10 ml 03/04/20 10:00 03/04/20 23:18 Sodium Chloride Flush Syringe 10 Ml IV 10 ml BID KESHAWN Administration Sodium Chloride 10 ml 03/03/20 23:45 Sodium Chloride Flush Syringe 10 Ml IV PRN PRN LINE FLUSH Nutrition/Malnutrition Assess - Dietary Evaluation Nutrition/Malnutrition Findings: Nutrition Notes Start: 03/04/20 09:15 Freq: Status: Active Protocol: Document 03/04/20 09:15 LP (Rec: 03/04/20 09:24 LP [id number]) Nutrition Notes Need for Assessment generated from: MD Order Initial or Follow up Assessment Current Diagnosis Sepsis,Hypertension, Respiratory Failure Other Pertinent Diagnosis Suspected COVID, Pneu, UTI Current Diet NPO Labs/Tests Na 152 BUN 27 BG 127 Pertinent Medications NS at 75ml/hr Height 6 ft Weight 85 kg [place] Body Weight (kg) 80.90 BMI 25.4 Weight Status Overweight Subjective/Other Information Consult for evaluation of nutrition intakes. Pt on vent in ED. Burn Absent Trauma Absent GI Symptoms None Current % PO Negligible Minimum of two criteria No physical signs of malnutrition #1 Nutrition Diagnosis Inadequate oral intake Etiology ARF As Evidenced by Signs and Symptoms Pt on vent and unable to consume PO Is patient on ventilator? Yes Is Patient Ambulatory and/or Out of Bed No REE-([facility]-confined to bed) 2018.7[address] Calculation Used for Recommendations [facility] Additional Notes Protein needs are 102-170g (1. 2-2g/kg) Fluid needs are 1ml/kcal Nutrition Intervention Change Diet Order: TF consult or extubation Nutrition Support: Once consulted Vital 1.2 at 70ml/hr Flush with 200ml q4h for hypernatremia Flush 110ml q4h once resolved Kcal 2,016 Protein (gm) 126 Fluid (mL) 1,362 Goal #1 TF consult or extubation Anticipated Discharge Needs: Unable to determine at this time Follow-Up By: 03/07/20 Additional Comments Follow for TF consult or extubation
[2020-03-05] MEDS: VANCOMYCIN 1,250 MG in SODIUM CHLORIDE 0.9% 500 ML 500 ML IV SCH ×2 (10:43→23:11)
[2020-03-05] MEDS: FAMOTIDINE 20 MG TAB FEEDTUBE SCH (10:45)
[2020-03-05] MEDS ORDERED: HYDROmorphone 1 MG/1 ML INJ ONE (11:23)
[2020-03-05] MEDS ORDERED: HYDROmorphone 1 MG/1 ML INJ IV ONE (11:25)
--- NOTE | 2020-03-05 12:25 | Progress Note ---
Assessment and Plan Sepsis, leucocytosis likely secondary to bilateral pneumonia. 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 Oropharyngeal dysphagia s/p PEG Chronic indwelling Martinez cather h/o TBI with chronic encephalopathy Hypernatremia - VAP bundle addressed, aspiration precautions HOB >40 -Trach care, airway clearance, secretion management -ABG, CXR as clinically indicated -CBC, BMP in am -Adjust minute ventilation as indicated fro better gas-exchange -Supplemental oxygen, wean for O2 sats>90% -lung protective strategies -Bronchodilators with pulmonary hygiene per RT - Daily assessment for readiness to wean, SAT and SBT assessment as tolerated - wean per pulmonary driven protocols otherwise - intermittent Fentanyl for target RASS 0 to -1 -Antibiotics, follow cultures and de-escalate as indicated ( treat for HAP- Cefepime and Vancomycin per ID) -Enteric nutritonal support -Accuchecks with glycemic control per SSI (While critically ill target blood glucose of 140-180 mg/dL; avoid hypoglycemia) - avoid nephrotoxins, renally dose all medications -Free water via PEG tube for hypernatremia, hypotonic solution -Chronic martinez, catheter care - continue to avoid benzodiazepines, reduce the possibility of delirium - Maintenance of sleep-wake cycle, avoid delirium - Stress ulcer and VTE prophylaxis ( Enoxaparin, add Famotidine) - PT/OT/ROM exercises - Mobility protocol, off loading, frequent turning per facility protocol to prevent pressure ulcers - Monitor hemodynamics closely -Airborne, and contact isolation for PUI-COVID per facility protocol- can discontinue once COVID screen is negative - continue other care per attending / other consultants CONDITION: CRITICAL PROGNOSIS: GUARDED CODE STATUS: FULL CODE The high probability of a clinically significant, sudden or life-threatening deterioration of the [respiratory, & neurologic] system(s) required my full and direct attention, intervention and personal management. The aggregate critical care time was [35] minutes without overlap. Time includes spent on; [x] Data Review and interpretation [x] Patient assessment and monitoring of vital signs [x] Documentation [x] Medication orders and management Subjective Date of service: 03/05/20 Interval history: Follow up for: Sepsis, leucocytosis likely secondary to bilateral pneumonia.;Acute and chronic hypoxemic respiratory failure, on MVS;Chronic tra cheostomy;Bilateral pneumonia; [id number] infection ( negative) ; Oropharyngeal dysphagia s/p PEG Seen and examined. Vitals,,labs, medications, chart reviewed. More awake and alert. Did not tolerate PSV this morning. Remains on MVS s/p trach . No overnight fevers. Discussed with RT and RN Objective Vital Signs - 12hr 03/05/20 03/05/20 03/05/20 00:30 01:00 01:30 Temperature Pulse Rate 115 H 113 H 110 H Respiratory 23 27 H 17 Rate Blood Pressure 125/84 126/81 120/90 O2 Sat by Pulse 95 96 99 Oximetry O2 Sat by Pulse Oximetry [ Assessment] 03/05/20 03/05/20 03/05/20 02:00 02:30 03:00 Temperature Pulse Rate 104 H 104 H 114 H Respiratory 20 20 18 Rate Blood Pressure 111/76 119/82 111/85 O2 Sat by Pulse 97 96 Oximetry O2 Sat by Pulse Oximetry [ Assessment] 03/05/20 03/05/20 03/05/20 03:30 04:00 04:15 Temperature Pulse Rate 109 H 110 H 112 H Respiratory 25 H 25 H 35 H Rate Blood Pressure 114/80 125/85 125/88 O2 Sat by Pulse 97 97 Oximetry O2 Sat by Pulse Oximetry [ Assessment] 03/05/20 03/05/20 03/05/20 04:45 05:00 05:15 Temperature Pulse Rate 105 H 107 H 108 H Respiratory 20 15 31 H Rate Blood Pressure 118/80 124/88 120/92 O2 Sat by Pulse 100 94 96 Oximetry O2 Sat by Pulse Oximetry [ Assessment] 03/05/20 03/05/20 03/05/20 05:45 06:00 06:15 Temperature Pulse Rate 111 H 112 H 114 H Respiratory 26 H 26 H 22 Rate Blood Pressure 127/92 132/94 142/91 O2 Sat by Pulse 94 96 96 Oximetry O2 Sat by Pulse Oximetry [ Assessment] 03/05/20 03/05/20 03/05/20 06:45 06:50 07:15 Temperature 98.4 F Pulse Rate 110 H 107 H Respiratory 26 H 21 Rate Blood Pressure 131/87 134/86 O2 Sat by Pulse 95 94 Oximetry O2 Sat by Pulse Oximetry [ Assessment] 03/05/20 03/05/20 03/05/20 07:30 07:45 08:00 Temperature Pulse Rate 104 H 109 H 110 H Respiratory 22 24 18 Rate Blood Pressure 126/87 137/89 132/94 O2 Sat by Pulse 93 95 93 Oximetry O2 Sat by Pulse Oximetry [ Assessment] 03/05/20 03/05/20 03/05/20 08:07 08:29 08:30 Temperature Pulse Rate 114 H 76 92 H Respiratory 19 Rate Blood Pressure 115/76 115/76 O2 Sat by Pulse 96 96 Oximetry O2 Sat by Pulse 96 Oximetry [ Assessment] 03/05/20 03/05/20 03/05/20 08:45 09:30 10:00 Temperature Pulse Rate 92 H 86 80 Respiratory 20 20 20 Rate Blood Pressure 118/79 123/85 123/81 O2 Sat by Pulse 93 95 95 Oximetry O2 Sat by Pulse Oximetry [ Assessment] 03/05/20 03/05/20 03/05/20 10:15 10:45 11:00 Temperature Pulse Rate 77 94 H 105 H Respiratory 20 20 26 H Rate Blood Pressure 128/79 127/82 138/89 O2 Sat by Pulse 97 94 94 Oximetry O2 Sat by Pulse Oximetry [ Assessment] 03/05/20 03/05/20 03/05/20 11:15 11:30 11:45 Temperature Pulse Rate 111 H 110 H 111 H Respiratory 24 23 14 Rate Blood Pressure 144/88 126/89 126/87 O2 Sat by Pulse 100 93 93 Oximetry O2 Sat by Pulse Oximetry [ Assessment] 03/05/20 12:00 Temperature Pulse Rate 108 H Respiratory 21 Rate Blood Pressure 128/89 O2 Sat by Pulse 97 Oximetry O2 Sat by Pulse Oximetry [ Assessment] Constitutional: alert, other (trach to MVS, helmet ) Eyes: non-icteric ENT: oropharynx moist Neck: supple, no lymphadenopathy, no JVD Effort: mildly labored Ascultation: Bilateral: diminished breath sounds, rhonchi Cardiovascular: regular rate and rhythm, other (S1,S2) Gastrointestinal: normoactive bowel sounds, soft, non-tender, non-distended, other (PEG in place) Integumentary: normal Extremities: no cyanosis, no edema, pulses normal Neurologic: pupils equal and round, unable to assess Psychiatric: other (unable to assess) CBC and BMP: 03/07/20 06:03 03/07/20 06:03 ABG, PT/INR, D-dimer: ABG ABG pH 7.498 pH Units (7.350-7.450) H 03/05/20 04:00 ABG pCO2 32.5 mm Hg 03/05/20 04:00 ABG pO2 122.7 mm Hg (80.0-90.0) H 03/05/20 04:00 ABG O2 Saturation 98.6 % (95.0-99.0) 03/05/20 04:00 PT/INR, D-dimer PT 15.9 Sec. (12.2-14.9) H 03/04/20 02:59 INR 1.29 (0.87-1.13) H 03/04/20 02:59 D-Dimer 1415.56 ng/mlDDU (0-234) H 03/03/20 22:00 Abnormal lab findings: Abnormal Labs 03/03/20 03/03/20 03/03/20 01:10 21:51 21:51 WBC 15.5 H RBC Hgb Hct 35.3 L RDW 17.9 H Lymph % (Auto) 11.6 L Seg Neutrophils % 83.7 H Seg Neuts % (Manual) Lymphocytes % (Manual) Seg Neutrophils # 13.0 H Seg Neutrophils # Man Lymphocytes # (Manual) PT INR D-Dimer ABG pH ABG pO2 173.4 H ABG HCO3 26.7 H ABG O2 Saturation 99.1 H ABG Hemoglobin 11.6 L Sodium 151 H Potassium Chloride 114.4 H BUN 29 H Creatinine 0.6 L Glucose 116 H Ferritin Lactate Dehydrogenase C-Reactive Protein Total Protein 8.9 H Albumin 2.8 L Ur Specific [place] Urine WBC (Auto) 03/03/20 03/03/20 03/03/20 22:00 22:00 22:00 WBC RBC Hgb Hct RDW Lymph % (Auto) Seg Neutrophils % Seg Neuts % (Manual) Lymphocytes % (Manual) Seg Neutrophils # Seg Neutrophils # Man Lymphocytes # (Manual) PT INR D-Dimer 1415.56 H ABG pH ABG pO2 ABG HCO3 ABG O2 Saturation ABG Hemoglobin Sodium Potassium Chloride BUN Creatinine Glucose 106 H Ferritin 522.1 H Lactate Dehydrogenase 240 H C-Reactive Protein 17.20 H Total Protein Albumin Ur Specific [place] Urine WBC (Auto) 03/03/20 03/04/20 03/04/20 22:15 02:59 02:59 WBC 15.2 H RBC 3.56 L Hgb 10.9 L Hct 33.4 L RDW 17.5 H Lymph % (Auto) Seg Neutrophils % Seg Neuts % (Manual) 93.0 H Lymphocytes % (Manual) 5.0 L Seg Neutrophils # Seg Neutrophils # Man 14.1 H Lymphocytes # (Manual) 0.8 L PT 15.9 H INR 1.29 H D-Dimer ABG pH ABG pO2 ABG HCO3 ABG O2 Saturation ABG Hemoglobin Sodium Potassium Chloride BUN Creatinine Glucose Ferritin Lactate Dehydrogenase C-Reactive Protein Total Protein Albumin Ur Specific [place] 1.031 H Urine WBC (Auto) 8.0 H 03/04/20 03/04/20 03/05/20 02:59 16:16 04:00 WBC RBC Hgb Hct RDW Lymph % (Auto) Seg Neutrophils % Seg Neuts % (Manual) Lymphocytes % (Manual) Seg Neutrophils # Seg Neutrophils # Man Lymphocytes # (Manual) PT INR D-Dimer ABG pH 7.451 H 7.498 H ABG pO2 102.9 H 122.7 H ABG HCO3 ABG O2 Saturation ABG Hemoglobin 12.7 L 10.2 L Sodium 152 H Potassium Chloride 116.9 H BUN 27 H Creatinine 0.4 L Glucose 127 H Ferritin Lactate Dehydrogenase C-Reactive Protein Total Protein Albumin Ur Specific [place] Urine WBC (Auto) 03/05/20 03/05/20 05:32 05:32 WBC 17.4 H RBC 3.35 L Hgb 10.3 L Hct 31.4 L RDW 17.2 H Lymph % (Auto) 10.9 L Seg Neutrophils % 85.3 H Seg Neuts % (Manual) Lymphocytes % (Manual) Seg Neutrophils # 14.8 H Seg Neutrophils # Man Lymphocytes # (Manual) PT INR D-Dimer ABG pH ABG pO2 ABG HCO3 ABG O2 Saturation ABG Hemoglobin Sodium 150 H Potassium 3.4 L Chloride 115.0 H BUN 29 H Creatinine 0.5 L Glucose Ferritin Lactate Dehydrogenase C-Reactive Protein Total Protein Albumin Ur Specific [place] Urine WBC (Auto) Chest x-ray: image reviewed Allied health notes reviewed: RT
[2020-03-05] MEDS ORDERED: DEXTROSE 5% IN WATER 1,000 ML IV ONE (13:33)
[2020-03-05] MEDS: DEXTROSE 5% IN WATER 1,000 ML IV SCH (14:26)
[2020-03-05] MEDS ORDERED: MORPHINE 2 MG/1 ML INJ ONE (14:27)
[2020-03-05] MEDS ORDERED: ONDANSETRON 4 MG/2 ML INJ ONE (14:27)
[2020-03-05] MEDS: MORPHINE 2 MG/1 ML INJ IV PRN (16:12)
[2020-03-05] MEDS ORDERED: cefTRIAXone/NS 2 GM/100 ML 2 GM/100 ML BAG IV ONE (16:13)
[2020-03-05 19:08] LABS: Blood Urea Nitrogen 20 mg/dL (9-20); Calcium 8.6 mg/dL (8.4-10.2); Hemolysis Index 65
[2020-03-05 19:14] LABS: BUN/Creatinine Ratio 67
[2020-03-05] MEDS ORDERED: ENOXAPARIN 40 MG/0.4 ML INJ SUB-Q ONE (22:48)
[2020-03-05] MEDS: ENOXAPARIN 40 MG/0.4 ML INJ SUB-Q SCH (22:54)
[2020-03-06] MEDS: FREE WATER PO SCH ×7 (00:33→23:05)
[2020-03-06] MEDS ORDERED: MORPHINE 4 MG/1 ML INJ ONE (02:08)
--- NOTE | 2020-03-06 02:13 | XRay Report ---
CHEST - 1 VIEW INDICATION: follow up respiratory failure COMPARISON: Yesterday FINDINGS: SUPPORT DEVICES: Stable support device positioning. HEART: Stable cardiomediastinal silhouette. LUNGS/PLEURA: Persistent patchy right basilar airspace disease. ADDITIONAL FINDINGS: Several old right-sided rib fractures again noted. IMPRESSION: Unchanged exam. Signer Name: Jimbo Leroy MD Signed: 03/06/2020 2:08 AM Workstation Name: [id number]
[2020-03-06] MEDS: MORPHINE 2 MG/1 ML INJ IV PRN (02:23)
[2020-03-06] MEDS ORDERED: DEXTROSE 5% IN WATER 1,000 ML IV ONE ×2 (04:19→17:58)
[2020-03-06] MEDS: DEXTROSE 5% IN WATER 1,000 ML IV SCH ×2 (04:48→18:21)
[2020-03-06 05:16] LABS: Basophils % (Auto) 0.1 % (0.0-1.8); Eosinophils % (Auto) 0.1 % (0.0-4.3); Hematocrit 28.2 % (35.5-45.6); Hemoglobin 9.2 gm/dl (11.8-15.2); Lymphocytes # (Auto) 1.7 K/mm3 (1.2-5.4); Lymphocytes % (Auto) 14.8 % (13.4-35.0); Mean Corpuscular HGB Conc 33 % (32-34); Mean Corpuscular Volume 92 fl (84-94); Monocytes # (Auto) 0.6 K/mm3 (0.0-0.8); Platelet Count 164 K/mm3 (140-440); Red Blood Count 3.05 M/mm3 (3.65-5.03); Red Cell Distribution Width 16.8 % (13.2-15.2)
[2020-03-06 05:40] LABS: Blood Urea Nitrogen 16 mg/dL (9-20); Calcium 8.8 mg/dL (8.4-10.2); Hemolysis Index 0
[2020-03-06 05:55] LABS: BUN/Creatinine Ratio 40
[2020-03-06] MEDS ORDERED: CEFEPIME/NS 2 GM/100 ML 2 GM/100 ML BAG IV ONE (06:06)
[2020-03-06] MEDS: CEFEPIME/NS 2 GM/100 ML 2 GM/100 ML BAG IV SCH (06:08)
[2020-03-06 06:43] LABS: ABG Base Excess 0.3 mmol/L (-2.0-3.0); ABG HCO3 24.2 mmol/L (20.0-26.0); ABG Methemoglobin 0.5 % (0.0-1.5); ABG Oxygen Saturation 99.3 % (95.0-99.0); ABG PCO2 35.8 mm Hg; ABG PH 7.448 pH Units (7.350-7.450); ABG PO2 194.8 mm Hg (80.0-90.0)
[2020-03-06] MEDS ORDERED: FAMOTIDINE 20 MG TAB ONE (09:25)
[2020-03-06] MEDS: VANCOMYCIN 1,250 MG in SODIUM CHLORIDE 0.9% 500 ML 500 ML IV SCH (09:31)
[2020-03-06] MEDS: FAMOTIDINE 20 MG TAB FEEDTUBE SCH (09:38)
--- NOTE | 2020-03-06 10:26 | Progress Note ---
Assessment and Plan Assessment and plan: (1) Pneumonia Current Visit: Yes Status: Acute Qualifiers: Pneumonia type: due to unspecified organism Laterality: bilateral Lung location: unspecified part of lung Qualified Code(s): J18.9 - Pneumonia, unspecified organism Plan to address problem: Patient commenced on empiric IV antibiotics. We await culture results. (2) Respiratory failure Current Visit: Yes Status: Acute Qualifiers: Chronicity: acute Respiratory failure complication: hypoxia Qualified Code(s): J96.01 - Acute respiratory failure with hypoxia Plan to address problem: Possibly secondary to the underlying pneumonia with possible Covid. Patient has been on trach and being admitted into the intensive care unit. Will request insurance claims assistant follow-up. (3) Dehydration Current Visit: Yes Status: Acute Plan to address problem: We will place on IV fluid and monitor chemistry. (4) Hypernatremia Current Visit: Yes Status: Acute Plan to address problem: Possibly secondary to the dehydration we will continue on IV fluid hydration. (5) Hypoxia Current Visit: Yes Status: Acute Plan to address problem: Possibly secondary to the underlying pneumonia. We will keep O2 saturation greater or equal to 94%. (6) Person under investigation for COVID-19 Current Visit: Yes Status: Acute Plan to address problem: Patient will be placed on isolation precautions. We await COVID-19 testing. We will also request infectious disease follow-up. (7) Sepsis Current Visit: Yes Status: Acute Qualifiers: Sepsis type: sepsis due to unspecified organism Sepsis acute organ dysfunction status: with acute organ dysfunction Severe sepsis acute organ dysfunction type: acute respiratory failure Acute respiratory failure type: with hypoxia Severe sepsis shock status: without septic shock Qualified Code(s): A41.9 - Sepsis, unspecified organism; R65.20 - Severe sepsis without septic shock; J96.01 - Acute respiratory failure with hypoxia Plan to address problem: Secondary to the underlying pneumonia and UTI. We will continue on IV fluid and empiric IV antibiotics. (8) UTI (urinary tract infection) Current Visit: Yes Status: Acute Qualifiers: Urinary tract infection type: acute cystitis Hematuria presence: with hematuria Qualified Code(s): N30.01 - Acute cystitis with hematuria Plan to address problem: We will continue on empiric IV antibiotics. Will await urine culture results. (9) DVT prophylaxis Current Visit: Yes Status: Acute Plan to address problem: Patient placed on subcutaneous Lovenox. (10) Full code status Current Visit: Yes Status: Acute 03/05/2020 -Patient is admitted for acute on chronic respiratory failure and currently on and requiring mechanical ventilation. Continue with IV antibiotics for UTI and sepsis. COVID-19 test is done and is negative. Manager Resort consulted. Continue with the current management. 03/06/2020 -Patient is admitted for acute on chronic respiratory failure. Patient is on trach and vent. Patient is on IV cefepime and vancomycin per ID recommendation. Pulmonary consulted for vent and trach management. History Interval history: Patient was seen and evaluated this morning Patient is on trach and vent He is alert Hospitalist Physical - Physical exam Narrative exam: Patient is on trach and vent The patient appeared well nourished and normally developed. Vital signs as documented. Head exam is unremarkable. No scleral icterus . Neck is without jugular venous distension, thyromegaly, or carotid bruits. Lungs are clear to auscultation. Cardiac exam reveals regular rate and Rhythm. Abdominal exam reveals PEG. Extremities are nonedematous and both femoral and pedal pulses are normal. 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 - Constitutional Vitals: Temp Pulse Resp BP Pulse Ox 99 F 87 31 H 124/82 100 03/06/20 07:36 03/06/20 09:00 03/06/20 09:00 03/06/20 09:00 03/06/20 08:00 General appearance: Present: no acute distress, cachectic, other (Dry oral mucosa,Trach in place) Results - Labs CBC & Chem 7: 03/06/20 04:16 03/06/20 04:16 Labs: Laboratory Last Values WBC 11.2 K/mm3 (4.5-11.0) H 03/06/20 04:16 RBC 3.05 M/mm3 (3.65-5.03) L 03/06/20 04:16 Hgb 9.2 gm/dl (11.8-15.2) L 03/06/20 04:16 Hct 28.2 % (35.5-45.6) L 03/06/20 04:16 MCV 92 fl (84-94) 03/06/20 04:16 MCH 30 pg (28-32) 03/06/20 04:16 MCHC 33 % (32-34) 03/06/20 04:16 RDW 16.8 % (13.2-15.2) H 03/06/20 04:16 Plt Count 164 K/mm3 (140-440) 03/06/20 04:16 Lymph % (Auto) 14.8 % (13.4-35.0) 03/06/20 04:16 [place] % (Auto) 5.0 % (0.0-7.3) 03/06/20 04:16 Eos % (Auto) 0.1 % (0.0-4.3) 03/06/20 04:16 Baso % (Auto) 0.1 % (0.0-1.8) 03/06/20 04:16 Lymph # (Auto) 1.7 K/mm3 (1.2-5.4) 03/06/20 04:16 [place] # (Auto) 0.6 K/mm3 (0.0-0.8) 03/06/20 04:16 Eos # (Auto) 0.0 K/mm3 (0.0-0.4) 03/06/20 04:16 Baso # (Auto) 0.0 K/mm3 (0.0-0.1) 03/06/20 04:16 Add Manual Diff Complete 03/04/20 02:59 Total Counted 100 03/04/20 02:59 Seg Neutrophils % 80.0 % (40.0-70.0) H 03/06/20 04:16 Seg Neuts % (Manual) 93.0 % (40.0-70.0) H 03/04/20 02:59 Band Neutrophils % 0 % 03/04/20 02:59 Lymphocytes % (Manual) 5.0 % (13.4-35.0) L 03/04/20 02:59 Reactive Lymphs % (Man) 0 % 03/04/20 02:59 Monocytes % (Manual) 2.0 % (0.0-7.3) 03/04/20 02:59 Eosinophils % (Manual) 0 % (0.0-4.3) 03/04/20 02:59 Basophils % (Manual) 0 % (0.0-1.8) 03/04/20 02:59 Metamyelocytes % 0 % 03/04/20 02:59 Myelocytes % 0 % 03/04/20 02:59 Promyelocytes % 0 % 03/04/20 02:59 Blast Cells % 0 % 03/04/20 02:59 Nucleated RBC % Not Reportable 03/04/20 02:59 Seg Neutrophils # 9.0 K/mm3 (1.8-7.7) H 03/06/20 04:16 Seg Neutrophils # Man 14.1 K/mm3 (1.8-7.7) H 03/04/20 02:59 Band Neutrophils # 0.0 K/mm3 03/04/20 02:59 Lymphocytes # (Manual) 0.8 K/mm3 (1.2-5.4) L 03/04/20 02:59 Abs React Lymphs (Man) 0.0 K/mm3 03/04/20 02:59 Monocytes # (Manual) 0.3 K/mm3 (0.0-0.8) 03/04/20 02:59 Eosinophils # (Manual) 0.0 K/mm3 (0.0-0.4) 03/04/20 02:59 Basophils # (Manual) 0.0 K/mm3 (0.0-0.1) 03/04/20 02:59 Metamyelocytes # 0.0 K/mm3 03/04/20 02:59 Myelocytes # 0.0 K/mm3 03/04/20 02:59 Promyelocytes # 0.0 K/mm3 03/04/20 02:59 Blast Cells # 0.0 K/mm3 03/04/20 02:59 WBC Morphology Not Reportable 03/04/20 02:59 Hypersegmented Neuts Not Reportable 03/04/20 02:59 Hyposegmented Neuts Not Reportable 03/04/20 02:59 Hypogranular Neuts Not Reportable 03/04/20 02:59 Smudge Cells Not Reportable 03/04/20 02:59 Toxic Granulation Not Reportable 03/04/20 02:59 Toxic Vacuolation Not Reportable 03/04/20 02:59 Dohle Bodies Not Reportable 03/04/20 02:59 Pelger-Huet Anomaly Not Reportable 03/04/20 02:59 Mike Rods Not Reportable 03/04/20 02:59 Platelet Estimate Consistent w auto 03/04/20 02:59 Clumped Platelets Not Reportable 03/04/20 02:59 Plt Clumps, EDTA Not Reportable 03/04/20 02:59 Large Platelets Not Reportable 03/04/20 02:59 Giant Platelets Not Reportable 03/04/20 02:59 Platelet Satelliting Not Reportable 03/04/20 02:59 Plt Morphology Comment Not Reportable 03/04/20 02:59 RBC Morphology Not Reportable 03/04/20 02:59 Dimorphic RBCs Not Reportable 03/04/20 02:59 Polychromasia Not Reportable 03/04/20 02:59 Hypochromasia Few 03/04/20 02:59 Poikilocytosis Not Reportable 03/04/20 02:59 Anisocytosis Few 03/04/20 02:59 Microcytosis Not Reportable 03/04/20 02:59 Macrocytosis Not Reportable 03/04/20 02:59 Spherocytes Not Reportable 03/04/20 02:59 Pappenheimer Bodies Not Reportable 03/04/20 02:59 Sickle Cells Not Reportable 03/04/20 02:59 Target Cells Not Reportable 03/04/20 02:59 Tear Drop Cells Not Reportable 03/04/20 02:59 Ovalocytes Not Reportable 03/04/20 02:59 Helmet Cells Not Reportable 03/04/20 02:59 [place] Bodies Not Reportable 03/04/20 02:59 [place] Rings Not Reportable 03/04/20 02:59 [place] Cells Not Reportable 03/04/20 02:59 Bite Cells Not Reportable 03/04/20 02:59 Crenated Cell Not Reportable 03/04/20 02:59 Elliptocytes Not Reportable 03/04/20 02:59 Acanthocytes (Spur) Not Reportable 03/04/20 02:59 Rouleaux Not Reportable 03/04/20 02:59 Hemoglobin C Crystals Not Reportable 03/04/20 02:59 Schistocytes Not Reportable 03/04/20 02:59 Malaria parasites Not Reportable 03/04/20 02:59 Branden Bodies Not Reportable 03/04/20 02:59 Hem Pathologist Commnt No 03/04/20 02:59 PT 15.9 Sec. (12.2-14.9) H 03/04/20 02:59 INR 1.29 (0.87-1.13) H 03/04/20 02:59 D-Dimer 1415.56 ng/mlDDU (0-234) H 03/03/20 22:00 ABG pH 7.448 pH Units (7.350-7.450) 03/06/20 05:50 ABG pCO2 35.8 mm Hg 03/06/20 05:50 ABG pO2 194.8 mm Hg (80.0-90.0) H 03/06/20 05:50 ABG HCO3 24.2 mmol/L (20.0-26.0) 03/06/20 05:50 ABG O2 Saturation 99.3 % (95.0-99.0) H 03/06/20 05:50 ABG O2 Content 13.1 (0.0-44) 03/06/20 05:50 ABG Base Excess 0.3 mmol/L (-2.0-3.0) 03/06/20 05:50 ABG Hemoglobin 9.2 gm/dl (14.0-18.0) L 03/06/20 05:50 ABG Carboxyhemoglobin 1.4 % (0.0-5.0) 03/06/20 05:50 ABG Methemoglobin 0.5 % (0.0-1.5) 03/06/20 05:50 Oxyhemoglobin 97.4 % (95.0-99.0) 03/06/20 05:50 FiO2 30 % 03/06/20 05:50 Sodium 146 mmol/L (137-145) H 03/06/20 04:16 Potassium 3.1 mmol/L (3.6-5.0) L 03/06/20 04:16 Chloride 111.3 mmol/L (98-107) H 03/06/20 04:16 Carbon Dioxide 23 mmol/L (22-30) 03/06/20 04:16 Anion Gap 15 mmol/L 03/06/20 04:16 BUN 16 mg/dL (9-20) 03/06/20 04:16 Creatinine 0.4 mg/dL (0.8-1.3) L 03/06/20 04:16 Estimated GFR > 60 ml/min 03/06/20 04:16 BUN/Creatinine Ratio 40 % 03/06/20 04:16 Glucose 83 mg/dL (75-100) 03/06/20 04:16 Lactic Acid 0.80 mmol/L (0.7-2.0) 03/04/20 02:59 Calcium 8.8 mg/dL (8.4-10.2) 03/06/20 04:16 Ferritin 522.1 ng/mL (30.0-300.0) H 03/03/20 22:00 Total Bilirubin 0.40 mg/dL (0.1-1.2) 03/03/20 21:51 AST 24 units/L (5-40) 03/03/20 21:51 ALT 30 units/L (7-56) 03/03/20 21:51 Alkaline Phosphatase 92 units/L (35-129) 03/03/20 21:51 Lactate Dehydrogenase 240 units/L (91-180) H 03/03/20 22:00 C-Reactive Protein 17.20 mg/dL (0.00-1.30) H 03/03/20 22:00 Total Protein 8.9 g/dL (6.3-8.2) H 03/03/20 21:51 Albumin 2.8 g/dL (3.9-5) L 03/03/20 21:51 Albumin/Globulin Ratio 0.5 % 03/03/20 21:51 Procalcitonin 0.31 ng/mL (<0.15) 03/03/20 22:00 Urine Color Bing (Yellow) 03/03/20 22:15 Urine Turbidity Clear (Clear) 03/03/20 22:15 Urine pH 5.0 (5.0-7.0) 03/03/20 22:15 Ur Specific [place] 1.031 (1.003-1.030) H 03/03/20 22:15 Urine Protein 30 mg/dl mg/dL (Negative) 03/03/20 22:15 Urine Glucose (UA) Neg mg/dL (Negative) 03/03/20 22:15 Urine Ketones Neg mg/dL (Negative) 03/03/20 22:15 Urine Blood Neg (Negative) 03/03/20 22:15 Urine Nitrite Neg (Negative) 03/03/20 22:15 Urine Bilirubin Neg (Negative) 03/03/20 22:15 Urine Urobilinogen 4.0 mg/dL (<2.0) 03/03/20 22:15 Ur Leukocyte Esterase Tr (Negative) 03/03/20 22:15 Urine WBC (Auto) 8.0 /HPF (0.0-6.0) H 03/03/20 22:15 Urine RBC (Auto) 2.0 /HPF (0.0-6.0) 03/03/20 22:15 U Epithel Cells (Auto) 1.0 /HPF (0-13.0) 03/03/20 22:15 Urine Bacteria (Auto) 1+ /HPF (Negative) 03/03/20 22:15 Hyaline Casts 1 /LPF 03/03/20 22:15 Urine Mucus 1+ /HPF 03/03/20 22:15 Coronavirus (PCR) Negative (Negative) 03/04/20 09:16 Microbiology: Microbiology 03/03/20 21:57 Peripheral/Venous Blood Culture - Preliminary NO GROWTH AFTER 48 HOURS 03/03/20 21:51 Peripheral/Venous Blood Culture - Preliminary NO GROWTH AFTER 48 HOURS 03/03/20 Unknown Tracheal Aspirate Sputum Culture - Preliminary Sarah/IV: IV Catheter Type [Right Peripheral IV Forearm] Active Medications - Current Medications Current Medications: Generic Name Dose Route Start Last Admin Trade Name Freq PRN Reason Stop Dose Admin Enoxaparin Sodium 40 mg 03/04/20 22:00 03/05/20 22:54 Enoxaparin SUB-Q 40 mg QDAY@2200 KESHAWN Administration Protocol Famotidine 20 mg 03/05/20 10:00 03/06/20 09:38 Pepcid FEEDTUBE 20 mg QDAY KESHAWN Administration Hydrophilic Ointment 1 applic 03/03/20 22:31 03/06/20 08:19 Vaseline Lip Therapy TP 1 applic Q2HR PRN Administration Dry Lips Cefepime HCl 2 gm in 100 mls @ 200 mls/hr 03/04/20 22:00 03/06/20 06:08 Cefepime/Ns 2 Gm/100 Ml IV 200 mls/hr Q8HR KESHAWN Administration Protocol Vancomycin HCl 1,250 mg/ 525 mls @ 333 mls/hr 03/05/20 10:00 03/06/20 09:31 Sodium Chloride IV 333 mls/hr Q12HR KESHAWN Administration Protocol Dextrose 1,000 mls @ 75 mls/hr 03/05/20 12:30 03/06/20 04:48 D5w IV 75 mls/hr DIRECT KESHAWN Administration Magnesium Hydroxide 30 ml 03/03/20 23:45 Milk Of Magnesia PO Q4H PRN Constipation Morphine Sulfate 2 mg 03/03/20 23:45 03/06/20 02:23 Morphine IV 2 mg Q4H PRN Administration Pain, Moderate (4-6) Multi-Ingred Cream/Lotion/Oil/Oint 1 applic 03/03/20 22:31 Artificial Tears Ophth Oint OU Q4HR PRN Dry Eye(s) Ondansetron HCl 4 mg 03/03/20 23:45 03/05/20 16:12 Zofran IV 4 mg Q8H PRN Administration Nausea And Vomiting Sodium Chloride 10 ml 03/04/20 10:00 03/06/20 09:43 Sodium Chloride Flush Syringe 10 Ml IV 10 ml BID KESHAWN Administration Sodium Chloride 10 ml 03/03/20 23:45 Sodium Chloride Flush Syringe 10 Ml IV PRN PRN LINE FLUSH Nutrition/Malnutrition Assess - Dietary Evaluation Nutrition/Malnutrition Findings: Nutrition Notes Start: 03/04/20 09:15 Freq: Status: Active Protocol: Document 03/04/20 09:15 LP (Rec: 03/04/20 09:24 LP [id number]) Nutrition Notes Need for Assessment generated from: MD Order Initial or Follow up Assessment Current Diagnosis Sepsis,Hypertension, Respiratory Failure Other Pertinent Diagnosis Suspected COVID, Pneu, UTI Current Diet NPO Labs/Tests Na 152 BUN 27 BG 127 Pertinent Medications NS at 75ml/hr Height 6 ft Weight 85 kg [place] Body Weight (kg) 80.90 BMI 25.4 Weight Status Overweight Subjective/Other Information Consult for evaluation of nutrition intakes. Pt on vent in ED. Burn Absent Trauma Absent GI Symptoms None Current % PO Negligible Minimum of two criteria No physical signs of malnutrition #1 Nutrition Diagnosis Inadequate oral intake Etiology ARF As Evidenced by Signs and Symptoms Pt on vent and unable to consume PO Is patient on ventilator? Yes Is Patient Ambulatory and/or Out of Bed No REE-([facility]-confined to bed) 2018.724 Calculation Used for Recommendations [facility] Additional Notes Protein needs are 102-170g (1. 2-2g/kg) Fluid needs are 1ml/kcal Nutrition Intervention Change Diet Order: TF consult or extubation Nutrition Support: Once consulted Vital 1.2 at 70ml/hr Flush with 200ml q4h for hypernatremia Flush 110ml q4h once resolved Kcal 2,016 Protein (gm) 126 Fluid (mL) 1,362 Goal #1 TF consult or extubation Anticipated Discharge Needs: Unable to determine at this time Follow-Up By: 03/07/20 Additional Comments Follow for TF consult or extubation
--- NOTE | 2020-03-06 11:52 | Progress Note ---
Assessment and Plan Cultures: SARS CoV2 PCR: Pending 03/03/2020 blood culture: In process 03/03/2020 sputum culture: Staph aureus A/P: 64-year-old male with traumatic brain injury, hypertension, indwelling tracheostomy and PEG tube, fdc resident at [place] was admitted to the hospital with fever, hypoxia: #Sepsis, leucocytosis likely secondary to bilateral pneumonia. UA without significant pyuria. Patient has indwelling catheter. Urine culture likely to be positive. #Acute on chronic respiratory failure: With chronic tracheostomy. #Hypernatremia Recs: Stop cefepime, continue vancomycin pending TAB of staph aureus in sputum. Will transition to Ancef if MSSA. Jhonathan Gray MD [facility] ([facility] O: [phone] F: [phone] Subjective Date of service: 03/06/20 Interval history: Afebrile, or mechanically ventilated. White count is 11.2. Covid testing neg ative. Procalcitonin mildly elevated at 0.31. Sputum culture with staph aureus. Imaging personally reviewed: Chest x-ray: Right basal airspace disease, unchanged. Objective - Exam Narrative Exam: Physical Exam: Constitutional: Intubated, sedated Head, Ears, Nose: Normocephalic, atraumatic. External ears, nose normal Eyes: Conjunctivae/corneas clear. No icterus. No ptosis. Neck: Intubated Oral: Intubated Cardiovascular: S1, S2 normal. Respiratory: Good air entry, clear to auscultation bilaterally GI: Soft, non-tender; bowel sounds normal. No peritoneal signs. Musculoskeletal: No pedal edema, no cyanosis. Skin: No rash or abscess Hem/Lymphatic: No palpable cervical or supraclavicular nodes. No lymphangitis Psych: Sedated Neurological: Sedated - Constitutional Vitals: Vital Signs Temp Pulse Resp BP Pulse Ox 99 F 83 31 H 124/81 100 03/06/20 07:36 03/06/20 10:00 03/06/20 10:00 03/06/20 10:00 03/06/20 10:00 Temperature -Last 24 Hours Temperature 99 F Temperature 98.6 F - Labs CBC & Chem 7: 03/06/20 04:16 03/06/20 04:16 Labs: Abnormal lab results 03/05/20 03/06/20 03/06/20 Range/Units 18:05 04:16 04:16 WBC 11.2 H (4.5-11.0) K/mm3 RBC 3.05 L (3.65-5.03) M/mm3 Hgb 9.2 L (11.8-15.2) gm/dl Hct 28.2 L (35.5-45.6) % RDW 16.8 H (13.2-15.2) % Seg Neutrophils % 80.0 H (40.0-70.0) % Seg Neutrophils # 9.0 H (1.8-7.7) K/mm3 ABG pO2 (80.0-90.0) mm Hg ABG O2 Saturation (95.0-99.0) % ABG Hemoglobin (14.0-18.0) gm/dl Sodium 146 H 146 H (137-145) mmol/L Potassium 3.1 L (3.6-5.0) mmol/L Chloride 113.7 H 111.3 H (98-107) mmol/L Carbon Dioxide 20 L (22-30) mmol/L Creatinine 0.3 L 0.4 L (0.8-1.3) mg/dL 03/06/20 Range/Units 05:50 WBC (4.5-11.0) K/mm3 RBC (3.65-5.03) M/mm3 Hgb (11.8-15.2) gm/dl Hct (35.5-45.6) % RDW (13.2-15.2) % Seg Neutrophils % (40.0-70.0) % Seg Neutrophils # (1.8-7.7) K/mm3 ABG pO2 194.8 H (80.0-90.0) mm Hg ABG O2 Saturation 99.3 H (95.0-99.0) % ABG Hemoglobin 9.2 L (14.0-18.0) gm/dl Sodium (137-145) mmol/L Potassium (3.6-5.0) mmol/L Chloride (98-107) mmol/L Carbon Dioxide (22-30) mmol/L Creatinine (0.8-1.3) mg/dL
[2020-03-06] MEDS ORDERED: LIPASE 10,500/PROTEASE 25,000/AMYLASE 43,750 (UNITS) DR CAP FEEDTUBE PRN (14:54)
[2020-03-06] MEDS ORDERED: SIMPLE SYRUP 15 ML FEEDTUBE PRN ×2 (14:54)
[2020-03-06] MEDS ORDERED: SODIUM BICARBONATE 325 MG TAB FEEDTUBE PRN (14:54)
[2020-03-06] MEDS ORDERED: NACL IV ONE (17:12)
[2020-03-06] MEDS ORDERED: D5W IV ONE (17:12)
--- NOTE | 2020-03-06 17:35 | Progress Note ---
Assessment and Plan Sepsis, leucocytosis likely secondary to bilateral pneumonia. Acute and chronic hypoxemic respiratory failure, on MVS Chronic tracheostomy Bilateral pneumonia [id number] infection- negative Oropharyngeal dysphagia s/p PEG Chronic indwelling Martinez catheter h/o TBI with chronic encephalopathy Hypernatremia, improving - VAP bundle addressed, aspiration precautions HOB >40 -Trach care, airway clearance, secretion management -ABG, CXR as clinically indicated- can stop daily ABG and CXR -CBC, BMP in am- monitor leukocytosis and hypernatremia -Adjust minute ventilation as indicated for better gas-exchange -Supplemental oxygen, wean for O2 sats>90% -lung protective strategies -Bronchodilators with pulmonary hygiene per RT - Daily assessment for readiness to wean, SAT and SBT assessment as tolerated - wean per pulmonary driven protocols otherwise - intermittent Fentanyl for target RASS 0 to -1 -Antibiotics, follow cultures and de-escalate as indicated ( treat for HAP- Cefepime and Vancomycin per ID) -Enteric nutritonal support -Accuchecks with glycemic control per SSI (While critically ill target blood glucose of 140-180 mg/dL; avoid hypoglycemia) - avoid nephrotoxins, renally dose all medications -Free water via PEG tube for hypernatremia, hypotonic solution -Chronic martinez, catheter care - continue to avoid benzodiazepines, reduce the possibility of delirium - Maintenance of sleep-wake cycle, avoid delirium - Stress ulcer and VTE prophylaxis ( Enoxaparin, add Famotidine) - PT/OT/ROM exercises - Mobility protocol, off loading, frequent turning per facility protocol to prevent pressure ulcers - Monitor hemodynamics closely - continue other care per attending / other consultants CONDITION: CRITICAL PROGNOSIS: GUARDED CODE STATUS: FULL CODE The high probability of a clinically significant, sudden or life-threatening deterioration of the [respiratory, & neurologic] system(s) required my full and direct attention, intervention and personal management. The aggregate critical care time was [35] minutes without overlap. Time includes spent on; [x] Data Review and interpretation [x] Patient assessment and monitoring of vital signs [x] Documentation [x] Medication orders and management Subjective Date of service: 03/06/20 Interval history: Follow up for: Sepsis, leucocytosis likely secondary to bilateral pneumonia.;Acute and chronic hypoxemic respiratory failure, on MVS;Chronic tr acheostomy;Bilateral pneumonia; [id number] infection ( negative) ; Oropharyngeal dysphagia s/p PEG Seen and examined. Vitals,,labs, medications, chart reviewed. More awake and alert. Did not tolerate PSV this morning. Remains on MVS s/p trach . No overnight fevers. Discussed with RT and RN Objective Vital Signs - 12hr 03/06/20 03/06/20 03/06/20 06:00 06:02 07:00 Temperature Pulse Rate 80 108 H Respiratory 22 28 H Rate Blood Pressure 113/72 109/80 O2 Sat by Pulse 97 99 Oximetry O2 Sat by Pulse 99 Oximetry [ Assessment] 03/06/20 03/06/20 03/06/20 07:36 08:00 08:38 Temperature 99 F Pulse Rate 105 H 96 H Respiratory 26 H Rate Blood Pressure 125/86 125/86 O2 Sat by Pulse 100 95 Oximetry O2 Sat by Pulse Oximetry [ Assessment] 03/06/20 03/06/20 03/06/20 09:00 10:00 11:00 Temperature Pulse Rate 87 83 69 Respiratory 31 H 31 H 33 H Rate Blood Pressure 124/82 124/81 131/76 O2 Sat by Pulse 100 100 Oximetry O2 Sat by Pulse 100 Oximetry [ Assessment] 03/06/20 03/06/20 03/06/20 11: 12:00 13:00 Temperature Pulse Rate 77 95 H 66 Respiratory 27 H 20 Rate Blood Pressure 131/76 133/90 132/81 O2 Sat by Pulse 100 82 L 100 Oximetry O2 Sat by Pulse Oximetry [ Assessment] 03/06/20 14:00 Temperature Pulse Rate 50 L Respiratory 15 Rate Blood Pressure 139/77 O2 Sat by Pulse 96 Oximetry O2 Sat by Pulse Oximetry [ Assessment] Constitutional: other (trach to MVS, helmet ) Eyes: non-icteric ENT: oropharynx moist Neck: supple, no lymphadenopathy, no JVD Effort: mildly labored Ascultation: Bilateral: diminished breath sounds, rhonchi Cardiovascular: regular rate and rhythm, other (S1,S2) Gastrointestinal: normoactive bowel sounds, soft, non-tender, non-distended, other (PEG in place) Integumentary: normal Extremities: no cyanosis, no edema, pulses normal Neurologic: pupils equal and round, unable to assess Psychiatric: other (unable to assess) CBC and BMP: 03/07/20 06:03 03/07/20 06:03 ABG, PT/INR, D-dimer: ABG ABG pH 7.448 pH Units (7.350-7.450) 03/06/20 05:50 ABG pCO2 35.8 mm Hg 03/06/20 05:50 ABG pO2 194.8 mm Hg (80.0-90.0) H 03/06/20 05:50 ABG O2 Saturation 99.3 % (95.0-99.0) H 03/06/20 05:50 PT/INR, D-dimer PT 15.9 Sec. (12.2-14.9) H 03/04/20 02:59 INR 1.29 (0.87-1.13) H 03/04/20 02:59 D-Dimer 1415.56 ng/mlDDU (0-234) H 03/03/20 22:00 Abnormal lab findings: Abnormal Labs 03/03/20 03/03/20 03/03/20 01:10 21:51 21:51 WBC 15.5 H RBC Hgb Hct 35.3 L RDW 17.9 H Lymph % (Auto) 11.6 L Seg Neutrophils % 83.7 H Seg Neuts % (Manual) Lymphocytes % (Manual) Seg Neutrophils # 13.0 H Seg Neutrophils # Man Lymphocytes # (Manual) PT INR D-Dimer ABG pH ABG pO2 173.4 H ABG HCO3 26.7 H ABG O2 Saturation 99.1 H ABG Hemoglobin 11.6 L Sodium 151 H Potassium Chloride 114.4 H Carbon Dioxide BUN 29 H Creatinine 0.6 L Glucose 116 H Ferritin Lactate Dehydrogenase C-Reactive Protein Total Protein 8.9 H Albumin 2.8 L Ur Specific [place] Urine WBC (Auto) 03/03/20 03/03/20 03/03/20 22:00 22:00 22:00 WBC RBC Hgb Hct RDW Lymph % (Auto) Seg Neutrophils % Seg Neuts % (Manual) Lymphocytes % (Manual) Seg Neutrophils # Seg Neutrophils # Man Lymphocytes # (Manual) PT INR D-Dimer 1415.56 H ABG pH ABG pO2 ABG HCO3 ABG O2 Saturation ABG Hemoglobin Sodium Potassium Chloride Carbon Dioxide BUN Creatinine Glucose 106 H Ferritin 522.1 H Lactate Dehydrogenase 240 H C-Reactive Protein 17.20 H Total Protein Albumin Ur Specific [place] Urine WBC (Auto) 03/03/20 03/04/20 03/04/20 22:15 02:59 02:59 WBC 15.2 H RBC 3.56 L Hgb 10.9 L Hct 33.4 L RDW 17.5 H Lymph % (Auto) Seg Neutrophils % Seg Neuts % (Manual) 93.0 H Lymphocytes % (Manual) 5.0 L Seg Neutrophils # Seg Neutrophils # Man 14.1 H Lymphocytes # (Manual) 0.8 L PT 15.9 H INR 1.29 H D-Dimer ABG pH ABG pO2 ABG HCO3 ABG O2 Saturation ABG Hemoglobin Sodium Potassium Chloride Carbon Dioxide BUN Creatinine Glucose Ferritin Lactate Dehydrogenase C-Reactive Protein Total Protein Albumin Ur Specific [place] 1.031 H Urine WBC (Auto) 8.0 H 03/04/20 03/04/20 03/05/20 02:59 16:16 04:00 WBC RBC Hgb Hct RDW Lymph % (Auto) Seg Neutrophils % Seg Neuts % (Manual) Lymphocytes % (Manual) Seg Neutrophils # Seg Neutrophils # Man Lymphocytes # (Manual) PT INR D-Dimer ABG pH 7.451 H 7.498 H ABG pO2 102.9 H 122.7 H ABG HCO3 ABG O2 Saturation ABG Hemoglobin 12.7 L 10.2 L Sodium 152 H Potassium Chloride 116.9 H Carbon Dioxide BUN 27 H Creatinine 0.4 L Glucose 127 H Ferritin Lactate Dehydrogenase C-Reactive Protein Total Protein Albumin Ur Specific [place] Urine WBC (Auto) 03/05/20 03/05/20 03/05/20 05:32 05:32 18:05 WBC 17.4 H RBC 3.35 L Hgb 10.3 L Hct 31.4 L RDW 17.2 H Lymph % (Auto) 10.9 L Seg Neutrophils % 85.3 H Seg Neuts % (Manual) Lymphocytes % (Manual) Seg Neutrophils # 14.8 H Seg Neutrophils # Man Lymphocytes # (Manual) PT INR D-Dimer ABG pH ABG pO2 ABG HCO3 ABG O2 Saturation ABG Hemoglobin Sodium 150 H 146 H Potassium 3.4 L Chloride 115.0 H 113.7 H Carbon Dioxide 20 L BUN 29 H Creatinine 0.5 L 0.3 L Glucose Ferritin Lactate Dehydrogenase C-Reactive Protein Total Protein Albumin Ur Specific [place] Urine WBC (Auto) 03/06/20 03/06/20 03/06/20 04:16 04:16 05:50 WBC 11.2 H RBC 3.05 L Hgb 9.2 L Hct 28.2 L RDW 16.8 H Lymph % (Auto) Seg Neutrophils % 80.0 H Seg Neuts % (Manual) Lymphocytes % (Manual) Seg Neutrophils # 9.0 H Seg Neutrophils # Man Lymphocytes # (Manual) PT INR D-Dimer ABG pH ABG pO2 194.8 H ABG HCO3 ABG O2 Saturation 99.3 H ABG Hemoglobin 9.2 L Sodium 146 H Potassium 3.1 L Chloride 111.3 H Carbon Dioxide BUN Creatinine 0.4 L Glucose Ferritin Lactate Dehydrogenase C-Reactive Protein Total Protein Albumin Ur Specific [place] Urine WBC (Auto)
[2020-03-06] MEDS: ENOXAPARIN 40 MG/0.4 ML INJ SUB-Q SCH (23:01)
--- NOTE | 2020-03-07 03:16 | XRay Report ---
CHEST - 1 VIEW INDICATION: follow up respiratory failure COMPARISON: Yesterday FINDINGS: SUPPORT DEVICES: Stable support device positioning. HEART: Stable cardiomediastinal silhouette. LUNGS/PLEURA: Persistent patchy airspace disease greatest in the right lung base and several old rib fractures. ADDITIONAL FINDINGS: None. IMPRESSION: Unchanged exam. Signer Name: Jimbo Leroy MD Signed: 03/07/2020 3:11 AM Workstation Name: [id number][id number]
[2020-03-07] MEDS: FREE WATER PO SCH ×4 (04:00→21:15)
[2020-03-07 06:20] LABS: Basophils % (Auto) 0.3 % (0.0-1.8); Eosinophils % (Auto) 0.5 % (0.0-4.3); Hematocrit 28.6 % (35.5-45.6); Hemoglobin 9.8 gm/dl (11.8-15.2); Lymphocytes # (Auto) 1.3 K/mm3 (1.2-5.4); Lymphocytes % (Auto) 13.7 % (13.4-35.0); Mean Corpuscular HGB Conc 34 % (32-34); Mean Corpuscular Volume 89 fl (84-94); Monocytes # (Auto) 0.5 K/mm3 (0.0-0.8); Monocytes % (Auto) 5.4 % (0.0-7.3); Platelet Count 188 K/mm3 (140-440); Red Blood Count 3.21 M/mm3 (3.65-5.03); Red Cell Distribution Width 16.6 % (13.2-15.2)
[2020-03-07 06:39] LABS: BUN/Creatinine Ratio 27; Blood Urea Nitrogen 8 mg/dL (9-20); Calcium 8.6 mg/dL (8.4-10.2); Hemolysis Index 1
[2020-03-07] MEDS: VANCOMYCIN 1,250 MG in SODIUM CHLORIDE 0.9% 500 ML 500 ML IV SCH (08:09)
--- NOTE | 2020-03-07 08:32 | Progress Note ---
Assessment and Plan Assessment and plan: --acute on chronic hypoxic respiratory failure; Secondary to underlying bilateral pneumonia Patient has chronic tracheostomy now on ventilatory support Continue nebulizers wean off ventilator as tolerated . Pulmonary critical following. --Severe hypokalemia; Potassium of 2.7, replaced with KCl 40 mEq via feeding tube every 3 hours x2 doses Follow magnesium levels, closely monitor electrolytes --Bilateral pneumonia; Continue current antibiotics, follow cultures Ventilatory support, pulmonary and ID following --Hypernatremia; Mild improvement, secondary to dehydration, continue supportive care --PUI; COVID-19 test negative on 03/04/2020 --Sepsis secondary to bilateral pneumonia/UTI Continue current antibiotics, follow cultures ID following --DVT prophylaxis; Lovenox --Full CODE STATUS; We will closely monitor the patient and adjust management as needed The high probability of a clinically significant, sudden or life threatening deterioration of the [respiratory, metabolic and infectious disease] system(s) required my full and direct attention, intervention and personal management. The aggregate critical care time was [45] minutes. This time is in addition to time spent performing reported procedures but includes the following: [x] Data Review and interpretation [x] Patient assessment and monitoring of vital signs [x] Documentation [x] Medication orders and management 03/05/2020 -Patient is admitted for acute on chronic respiratory failure and currently on and requiring mechanical ventilation. Continue with IV antibiotics for UTI and sepsis. COVID-19 test is done and is negative. Fire Control Technician B consulted. Continue with the current management. 03/06/2020 -Patient is admitted for acute on chronic respiratory failure. Patient is on trach and vent. Patient is on IV cefepime and vancomycin per ID recommendation. Pulmonary consulted for vent and trach management. 03/07/2020; continue ventilatory support Wean off vent as tolerated, consults and recommendations noted and appreciated We will closely monitor the patient and adjust the management as needed Plan of care reviewed with the patient and his nurse History Interval history: I have seen and examined the patient at the bedside in ICU this morning Patient's chart and medications reviewed Patient chronic tracheostomy on ventilatory support Vital signs reviewed Hospitalist Physical - Constitutional Vitals: Temp Pulse Resp BP Pulse Ox 98.5 F 100 H 32 H 133/90 100 03/07/20 04:00 03/07/20 08:00 03/07/20 06:00 03/07/20 08:00 03/07/20 08:00 General appearance: Present: mild distress, cachectic, other (Tracheostomy, on ventilatory support) - EENT Eyes: Present: PERRL, EOM intact - Neck Neck: Present: other (Tracheostomy on vent) - Respiratory Respiratory effort: normal Respiratory: bilateral: diminished, rhonchi, negative: rales, wheezing - Cardiovascular Rhythm: regular Heart Sounds: Present: S1 & S2 - Extremities Extremities: no ischemia, No edema - Abdominal General gastrointestinal: soft, non-tender, non-distended, normal bowel sounds - Integumentary Integumentary: Present: clear, warm - Psychiatric Psychiatric: other (Sedated) - Neurologic Neurologic: other (On vent sedated) Results - Labs CBC & Chem 7: 03/07/20 06:03 03/07/20 06:03 Labs: Laboratory Last Values WBC 9.8 K/mm3 (4.5-11.0) 03/07/20 06:03 RBC 3.21 M/mm3 (3.65-5.03) L 03/07/20 06:03 Hgb 9.8 gm/dl (11.8-15.2) L 03/07/20 06:03 Hct 28.6 % (35.5-45.6) L 03/07/20 06:03 MCV 89 fl (84-94) 03/07/20 06:03 MCH 31 pg (28-32) 03/07/20 06:03 MCHC 34 % (32-34) 03/07/20 06:03 RDW 16.6 % (13.2-15.2) H 03/07/20 06:03 Plt Count 188 K/mm3 (140-440) 03/07/20 06:03 Lymph % (Auto) 13.7 % (13.4-35.0) 03/07/20 06:03 [place] % (Auto) 5.4 % (0.0-7.3) 03/07/20 06:03 Eos % (Auto) 0.5 % (0.0-4.3) 03/07/20 06:03 Baso % (Auto) 0.3 % (0.0-1.8) 03/07/20 06:03 Lymph # (Auto) 1.3 K/mm3 (1.2-5.4) 03/07/20 06:03 [place] # (Auto) 0.5 K/mm3 (0.0-0.8) 03/07/20 06:03 Eos # (Auto) 0.0 K/mm3 (0.0-0.4) 03/07/20 06:03 Baso # (Auto) 0.0 K/mm3 (0.0-0.1) 03/07/20 06:03 Add Manual Diff Complete 03/04/20 02:59 Total Counted 100 03/04/20 02:59 Seg Neutrophils % 80.1 % (40.0-70.0) H 03/07/20 06:03 Seg Neuts % (Manual) 93.0 % (40.0-70.0) H 03/04/20 02:59 Band Neutrophils % 0 % 03/04/20 02:59 Lymphocytes % (Manual) 5.0 % (13.4-35.0) L 03/04/20 02:59 Reactive Lymphs % (Man) 0 % 03/04/20 02:59 Monocytes % (Manual) 2.0 % (0.0-7.3) 03/04/20 02:59 Eosinophils % (Manual) 0 % (0.0-4.3) 03/04/20 02:59 Basophils % (Manual) 0 % (0.0-1.8) 03/04/20 02:59 Metamyelocytes % 0 % 03/04/20 02:59 Myelocytes % 0 % 03/04/20 02:59 Promyelocytes % 0 % 03/04/20 02:59 Blast Cells % 0 % 03/04/20 02:59 Nucleated RBC % Not Reportable 03/04/20 02:59 Seg Neutrophils # 7.8 K/mm3 (1.8-7.7) H 03/07/20 06:03 Seg Neutrophils # Man 14.1 K/mm3 (1.8-7.7) H 03/04/20 02:59 Band Neutrophils # 0.0 K/mm3 03/04/20 02:59 Lymphocytes # (Manual) 0.8 K/mm3 (1.2-5.4) L 03/04/20 02:59 Abs React Lymphs (Man) 0.0 K/mm3 03/04/20 02:59 Monocytes # (Manual) 0.3 K/mm3 (0.0-0.8) 03/04/20 02:59 Eosinophils # (Manual) 0.0 K/mm3 (0.0-0.4) 03/04/20 02:59 Basophils # (Manual) 0.0 K/mm3 (0.0-0.1) 03/04/20 02:59 Metamyelocytes # 0.0 K/mm3 03/04/20 02:59 Myelocytes # 0.0 K/mm3 03/04/20 02:59 Promyelocytes # 0.0 K/mm3 03/04/20 02:59 Blast Cells # 0.0 K/mm3 03/04/20 02:59 WBC Morphology Not Reportable 03/04/20 02:59 Hypersegmented Neuts Not Reportable 03/04/20 02:59 Hyposegmented Neuts Not Reportable 03/04/20 02:59 Hypogranular Neuts Not Reportable 03/04/20 02:59 Smudge Cells Not Reportable 03/04/20 02:59 Toxic Granulation Not Reportable 03/04/20 02:59 Toxic Vacuolation Not Reportable 03/04/20 02:59 Dohle Bodies Not Reportable 03/04/20 02:59 Pelger-Huet Anomaly Not Reportable 03/04/20 02:59 Mike Rods Not Reportable 03/04/20 02:59 Platelet Estimate Consistent w auto 03/04/20 02:59 Clumped Platelets Not Reportable 03/04/20 02:59 Plt Clumps, EDTA Not Reportable 03/04/20 02:59 Large Platelets Not Reportable 03/04/20 02:59 Giant Platelets Not Reportable 03/04/20 02:59 Platelet Satelliting Not Reportable 03/04/20 02:59 Plt Morphology Comment Not Reportable 03/04/20 02:59 RBC Morphology Not Reportable 03/04/20 02:59 Dimorphic RBCs Not Reportable 03/04/20 02:59 Polychromasia Not Reportable 03/04/20 02:59 Hypochromasia Few 03/04/20 02:59 Poikilocytosis Not Reportable 03/04/20 02:59 Anisocytosis Few 03/04/20 02:59 Microcytosis Not Reportable 03/04/20 02:59 Macrocytosis Not Reportable 03/04/20 02:59 Spherocytes Not Reportable 03/04/20 02:59 Pappenheimer Bodies Not Reportable 03/04/20 02:59 Sickle Cells Not Reportable 03/04/20 02:59 Target Cells Not Reportable 03/04/20 02:59 Tear Drop Cells Not Reportable 03/04/20 02:59 Ovalocytes Not Reportable 03/04/20 02:59 Helmet Cells Not Reportable 03/04/20 02:59 [place] Bodies Not Reportable 03/04/20 02:59 [place] Rings Not Reportable 03/04/20 02:59 [place] Cells Not Reportable 03/04/20 02:59 Bite Cells Not Reportable 03/04/20 02:59 Crenated Cell Not Reportable 03/04/20 02:59 Elliptocytes Not Reportable 03/04/20 02:59 Acanthocytes (Spur) Not Reportable 03/04/20 02:59 Rouleaux Not Reportable 03/04/20 02:59 Hemoglobin C Crystals Not Reportable 03/04/20 02:59 Schistocytes Not Reportable 03/04/20 02:59 Malaria parasites Not Reportable 03/04/20 02:59 Branden Bodies Not Reportable 03/04/20 02:59 Hem Pathologist Commnt No 03/04/20 02:59 PT 15.9 Sec. (12.2-14.9) H 03/04/20 02:59 INR 1.29 (0.87-1.13) H 03/04/20 02:59 D-Dimer 1415.56 ng/mlDDU (0-234) H 03/03/20 22:00 ABG pH 7.504 (7.320-7.450) H 03/07/20 02:54 POC ABG pCO2 30.5 mmHg (32.0-48.0) L 03/07/20 02:54 ABG pCO2 35.8 mm Hg 03/06/20 05:50 POC ABG pO2 92.4 mmHg (83-108) 03/07/20 02:54 ABG pO2 194.8 mm Hg (80.0-90.0) H 03/06/20 05:50 POC ABG HCO3 23.5 03/07/20 02:54 ABG HCO3 24.2 mmol/L (20.0-26.0) 03/06/20 05:50 ABG O2 Saturation 99.3 % (95.0-99.0) H 03/06/20 05:50 ABG O2 Content 13.1 (0.0-44) 03/06/20 05:50 POC ABG Base Excess 0.9 03/07/20 02:54 ABG Base Excess 0.3 mmol/L (-2.0-3.0) 03/06/20 05:50 ABG Hemoglobin 10.4 (12.0-17.5) L 03/07/20 02:54 ABG Carboxyhemoglobin 1.4 % (0.0-5.0) 03/06/20 05:50 ABG Methemoglobin 0.5 % (0.0-1.5) 03/06/20 05:50 ABG Sodium 138.4 mmol/L (136.0-145.0) 03/07/20 02:54 ABG Potassium 2.7 mmol/L (3.40-4.50) L 03/07/20 02:54 ABG Chloride 109.0 mmol/L (98-107) H 03/07/20 02:54 ABG Glucose 90 mg/dL (65-95) 03/07/20 02:54 Oxyhemoglobin 97.4 % (95.0-99.0) 03/06/20 05:50 FiO2 30 03/07/20 02:54 Sodium 141 mmol/L (137-145) 03/07/20 06:03 Potassium 2.7 mmol/L (3.6-5.0) L* 03/07/20 06:03 Chloride 107.6 mmol/L (98-107) H 03/07/20 06:03 Carbon Dioxide 21 mmol/L (22-30) L 03/07/20 06:03 Anion Gap 15 mmol/L 03/07/20 06:03 BUN 8 mg/dL (9-20) L 03/07/20 06:03 Creatinine 0.3 mg/dL (0.8-1.3) L 03/07/20 06:03 Estimated GFR > 60 ml/min 03/07/20 06:03 BUN/Creatinine Ratio 27 % 03/07/20 06:03 Glucose 129 mg/dL (75-100) H 03/07/20 06:03 POC Glucose 126 mg/dL (70-105) H 03/07/20 05:47 Lactic Acid 0.80 mmol/L (0.7-2.0) 03/04/20 02:59 Calcium 8.6 mg/dL (8.4-10.2) 03/07/20 06:03 Ferritin 522.1 ng/mL (30.0-300.0) H 03/03/20 22:00 Total Bilirubin 0.40 mg/dL (0.1-1.2) 03/03/20 21:51 AST 24 units/L (5-40) 03/03/20 21:51 ALT 30 units/L (7-56) 03/03/20 21:51 Alkaline Phosphatase 92 units/L (35-129) 03/03/20 21:51 Lactate Dehydrogenase 240 units/L (91-180) H 03/03/20 22:00 C-Reactive Protein 17.20 mg/dL (0.00-1.30) H 03/03/20 22:00 Total Protein 8.9 g/dL (6.3-8.2) H 03/03/20 21:51 Albumin 2.8 g/dL (3.9-5) L 03/03/20 21:51 Albumin/Globulin Ratio 0.5 % 03/03/20 21:51 Procalcitonin 0.31 ng/mL (<0.15) 03/03/20 22:00 Arterial Blood Glucose 90 mg/dL (65-95) 03/07/20 02:54 Arterial Blood Ionized Calcium 4.7 mg/dL (4.6-5.3) 03/07/20 02:54 Urine Color [place] (Yellow) 03/03/20 22:15 Urine Turbidity Clear (Clear) 03/03/20 22:15 Urine pH 5.0 (5.0-7.0) 03/03/20 22:15 Ur Specific [place] 1.031 (1.003-1.030) H 03/03/20 22:15 Urine Protein 30 mg/dl mg/dL (Negative) 03/03/20 22:15 Urine Glucose (UA) Neg mg/dL (Negative) 03/03/20 22:15 Urine Ketones Neg mg/dL (Negative) 03/03/20 22:15 Urine Blood Neg (Negative) 03/03/20 22:15 Urine Nitrite Neg (Negative) 03/03/20 22:15 Urine Bilirubin Neg (Negative) 03/03/20 22:15 Urine Urobilinogen 4.0 mg/dL (<2.0) 03/03/20 22:15 Ur Leukocyte Esterase Tr (Negative) 03/03/20 22:15 Urine WBC (Auto) 8.0 /HPF (0.0-6.0) H 03/03/20 22:15 Urine RBC (Auto) 2.0 /HPF (0.0-6.0) 03/03/20 22:15 U Epithel Cells (Auto) 1.0 /HPF (0-13.0) 03/03/20 22:15 Urine Bacteria (Auto) 1+ /HPF (Negative) 03/03/20 22:15 Hyaline Casts 1 /LPF 03/03/20 22:15 Urine Mucus 1+ /HPF 03/03/20 22:15 Vancomycin Trough 9.0 ug/mL (5.0-20.0) 03/06/20 20:15 Coronavirus (PCR) Negative (Negative) 03/04/20 09:16 Microbiology: Microbiology 03/03/20 21:57 Peripheral/Venous Blood Culture - Preliminary NO GROWTH AFTER 72 HOURS 03/03/20 21:51 Peripheral/Venous Blood Culture - Preliminary NO GROWTH AFTER 72 HOURS 03/03/20 Unknown Tracheal Aspirate Sputum Culture - Preliminary Staphylococcus Aureus Sarah/IV: Voiding Method Condom Catheter IV Catheter Type [Right Peripheral IV Forearm] Active Medications - Current Medications Current Medications: Generic Name Dose Route Start Last Admin Trade Name Freq PRN Reason Stop Dose Admin Lipase/Protease/Amylase 1 each 03/06/20 14:54 Pancreaze 10,500 Unit FEEDTUBE PRN PRN For Clogged Feeding Tube Enoxaparin Sodium 40 mg 03/04/20 22:00 03/06/20 23:01 Enoxaparin SUB-Q 40 mg QDAY@2200 KESHAWN Administration Protocol Famotidine 20 mg 03/05/20 10:00 03/06/20 09:38 Pepcid FEEDTUBE 20 mg QDAY KESHAWN Administration Hydrophilic Ointment 1 applic 03/03/20 22:31 03/06/20 08:19 Vaseline Lip Therapy TP 1 applic Q2HR PRN Administration Dry Lips Dextrose 1,000 mls @ 75 mls/hr 03/05/20 12:30 03/06/20 18:21 D5w IV 75 mls/hr DIRECT KESHAWN Administration Vancomycin HCl 1,250 mg/ 275 mls @ 275 mls/hr 03/07/20 10:00 Sodium Chloride IV Q12HR [facility] Protocol Magnesium Hydroxide 30 ml 03/03/20 23:45 Milk Of Magnesia PO Q4H PRN Constipation Morphine Sulfate 2 mg 03/03/20 23:45 03/06/20 02:23 Morphine IV 2 mg Q4H PRN Administration Pain, Moderate (4-6) Multi-Ingred Cream/Lotion/Oil/Oint 1 applic 03/03/20 22:31 Artificial Tears Ophth Oint OU Q4HR PRN Dry Eye(s) Ondansetron HCl 4 mg 03/03/20 23:45 03/05/20 16:12 Zofran IV 4 mg Q8H PRN Administration Nausea And Vomiting Potassium Chloride 40 meq 03/07/20 08:00 Potassium Chloride FEEDTUBE 03/07/20 12:01 Q4H KESHAWN Simple Syrup 15 ml 03/06/20 14:54 Simple Syrup FEEDTUBE PRN PRN Hypoglycemia Simple Syrup 30 ml 03/06/20 14:54 Simple Syrup FEEDTUBE PRN PRN Hypoglycemia Sodium Bicarbonate 325 mg 03/06/20 14:54 Sodium Bicarbonate FEEDTUBE PRN PRN For Clogged Feeding Tube Sodium Chloride 10 ml 03/04/20 10:00 03/06/20 23:10 Sodium Chloride Flush Syringe 10 Ml IV 10 ml BID KESHAWN Administration Sodium Chloride 10 ml 03/03/20 23:45 Sodium Chloride Flush Syringe 10 Ml IV PRN PRN LINE FLUSH Nutrition/Malnutrition Assess - Dietary Evaluation Nutrition/Malnutrition Findings: Nutrition Notes Start: 03/04/20 09:15 Freq: Status: Active Protocol: Document 03/04/20 09:15 LP (Rec: 03/04/20 09:24 LP [id number]) Nutrition Notes Need for Assessment generated from: MD Order Initial or Follow up Assessment Current Diagnosis Sepsis,Hypertension, Respiratory Failure Other Pertinent Diagnosis Suspected COVID, Pneu, UTI Current Diet NPO Labs/Tests Na 152 BUN 27 BG 127 Pertinent Medications NS at 75ml/hr Height 6 ft Weight 85 kg [place] Body Weight (kg) 80.90 BMI 25.4 Weight Status Overweight Subjective/Other Information Consult for evaluation of nutrition intakes. Pt on vent in ED. Burn Absent Trauma Absent GI Symptoms None Current % PO Negligible Minimum of two criteria No physical signs of malnutrition #1 Nutrition Diagnosis Inadequate oral intake Etiology ARF As Evidenced by Signs and Symptoms Pt on vent and unable to consume PO Is patient on ventilator? Yes Is Patient Ambulatory and/or Out of Bed No REE-([facility]-confined to bed) 2017.724 Calculation Used for Recommendations [facility] Additional Notes Protein needs are 102-170g (1. 2-2g/kg) Fluid needs are 1ml/kcal Nutrition Intervention Change Diet Order: TF consult or extubation Nutrition Support: Once consulted Vital 1.2 at 70ml/hr Flush with 200ml q4h for hypernatremia Flush 110ml q4h once resolved Kcal 2,016 Protein (gm) 126 Fluid (mL) 1,362 Goal #1 TF consult or extubation Anticipated Discharge Needs: Unable to determine at this time Follow-Up By: 03/07/20 Additional Comments Follow for TF consult or extubation
[2020-03-07] MEDS: FAMOTIDINE 20 MG TAB FEEDTUBE SCH (09:04)
[2020-03-07] MEDS: POTASSIUM CHLORIDE 20 MEQ PACKET FEEDTUBE SCH ×2 (09:04→13:03)
[2020-03-07] MEDS: DEXTROSE 5% IN WATER 1,000 ML IV SCH (09:06)
[2020-03-07] MEDS ORDERED: LIPASE 10,500/PROTEASE 25,000/AMYLASE 43,750 (UNITS) DR CAP FEEDTUBE PRN (11:21)
[2020-03-07] MEDS ORDERED: SODIUM BICARBONATE 325 MG TAB FEEDTUBE PRN (11:21)
[2020-03-07] MEDS ORDERED: SIMPLE SYRUP 15 ML FEEDTUBE PRN ×2 (11:21)
[2020-03-07] MEDS ORDERED: SODIUM CHLORIDE 0.9% 250ML 250 ML IV SCH (12:15)
[2020-03-07] MEDS: VANCOMYCIN 1,250 MG in SODIUM CHLORIDE 0.9% 250ML 250 ML IV SCH ×2 (14:35→22:07)
--- NOTE | 2020-03-07 15:48 | Progress Note ---
Assessment and Plan Sepsis, leucocytosis likely secondary to bilateral pneumonia. Acute and chronic hypoxemic respiratory failure, on MVS Chronic tracheostomy Bilateral pneumonia [id number] infection- negative Oropharyngeal dysphagia s/p PEG Chronic indwelling Martinez catheter h/o TBI with chronic encephalopathy Hypernatremia, improving - VAP bundle addressed, aspiration precautions HOB >40 -Trach care, airway clearance, secretion management -ABG, CXR as clinically indicated- can stop daily ABG and CXR -CBC, BMP in am- monitor leukocytosis and hypernatremia -Adjust minute ventilation as indicated for better gas-exchange -Supplemental oxygen, wean for O2 sats>90% -lung protective strategies -Bronchodilators with pulmonary hygiene per RT - Daily assessment for readiness to wean, SAT and SBT assessment as tolerated - wean per pulmonary driven protocols otherwise - intermittent Fentanyl for target RASS 0 to -1 -Antibiotics, follow cultures and de-escalate as indicated ( treat for HAP- Cefepime and Vancomycin per ID) -Enteric nutritonal support -Accuchecks with glycemic control per SSI (While critically ill target blood glucose of 140-180 mg/dL; avoid hypoglycemia) - avoid nephrotoxins, renally dose all medications -Free water via PEG tube for hypernatremia, hypotonic solution -Chronic martinez, catheter care - continue to avoid benzodiazepines, reduce the possibility of delirium - Maintenance of sleep-wake cycle, avoid delirium - Stress ulcer and VTE prophylaxis ( Enoxaparin, add Famotidine) - PT/OT/ROM exercises - Mobility protocol, off loading, frequent turning per facility protocol to prevent pressure ulcers - Monitor hemodynamics closely - continue other care per attending / other consultants CONDITION: CRITICAL PROGNOSIS: GUARDED CODE STATUS: FULL CODE The high probability of a clinically significant, sudden or life-threatening deterioration of the [respiratory, & neurologic] system(s) required my full and direct attention, intervention and personal management. The aggregate critical care time was [35] minutes without overlap. Time includes spent on; [x] Data Review and interpretation [x] Patient assessment and monitoring of vital signs [x] Documentation [x] Medication orders and management Subjective Date of service: 03/07/20 Interval history: Follow up for: Sepsis, leucocytosis likely secondary to bilateral pneumonia.;Acute and chronic hypoxemic respiratory failure, on MVS;Chronic tr acheostomy;Bilateral pneumonia; [id number] infection ( negative) ; Oropharyngeal dysphagia s/p PEG Seen and examined. Vitals,,labs, medications, chart reviewed. More awake and alert. Did not tolerate PSV this morning. Remains on MVS s/p trach . No overnight fevers. Discussed with RT and RN Objective Vital Signs - 12hr 03/07/20 03/07/20 03/07/20 04:00 04:06 05:00 Temperature 98.5 F Pulse Rate 114 H 117 H 106 H Respiratory 26 H 16 Rate Blood Pressure 123/84 115/76 O2 Sat by Pulse 99 99 Oximetry O2 Sat by Pulse Oximetry [ Assessment] 03/07/20 03/07/20 03/07/20 06:00 07:00 08:00 Temperature Pulse Rate 101 H 85 102 H Respiratory 32 H 25 H 24 Rate Blood Pressure 130/82 122/77 133/90 O2 Sat by Pulse 100 100 100 Oximetry O2 Sat by Pulse 100 Oximetry [ Assessment] 03/07/20 03/07/20 03/07/20 09:00 09:55 12:39 Temperature Pulse Rate 76 66 100 H Respiratory 16 20 Rate Blood Pressure 128/83 114/69 112/67 O2 Sat by Pulse 100 100 100 Oximetry O2 Sat by Pulse Oximetry [ Assessment] 03/07/20 15:33 Temperature Pulse Rate 88 Respiratory Rate Blood Pressure 130/81 O2 Sat by Pulse 100 Oximetry O2 Sat by Pulse Oximetry [ Assessment] Constitutional: other (trach to MVS, helmet ) Eyes: non-icteric ENT: oropharynx moist Neck: supple, no lymphadenopathy, no JVD Effort: mildly labored Ascultation: Bilateral: diminished breath sounds, rhonchi Cardiovascular: regular rate and rhythm, other (S1,S2) Gastrointestinal: normoactive bowel sounds, soft, non-tender, non-distended, other (PEG in place) Integumentary: normal Extremities: no cyanosis, no edema, pulses normal Neurologic: pupils equal and round, unable to assess Psychiatric: other (unable to assess) CBC and BMP: 03/07/20 06:03 03/07/20 06:03 ABG, PT/INR, D-dimer: ABG ABG pH 7.504 (7.320-7.450) H 03/07/20 02:54 POC ABG pCO2 30.5 mmHg (32.0-48.0) L 03/07/20 02:54 ABG pCO2 35.8 mm Hg 03/06/20 05:50 POC ABG pO2 92.4 mmHg (83-108) 03/07/20 02:54 ABG pO2 194.8 mm Hg (80.0-90.0) H 03/06/20 05:50 POC ABG HCO3 23.5 03/07/20 02:54 ABG O2 Saturation 99.3 % (95.0-99.0) H 03/06/20 05:50 PT/INR, D-dimer PT 15.9 Sec. (12.2-14.9) H 03/04/20 02:59 INR 1.29 (0.87-1.13) H 03/04/20 02:59 D-Dimer 1415.56 ng/mlDDU (0-234) H 03/03/20 22:00 Abnormal lab findings: Abnormal Labs 03/03/20 03/03/20 03/03/20 01:10 21:51 21:51 WBC 15.5 H RBC Hgb Hct 35.3 L RDW 17.9 H Lymph % (Auto) 11.6 L Seg Neutrophils % 83.7 H Seg Neuts % (Manual) Lymphocytes % (Manual) Seg Neutrophils # 13.0 H Seg Neutrophils # Man Lymphocytes # (Manual) PT INR D-Dimer ABG pH POC ABG pCO2 ABG pO2 173.4 H ABG HCO3 26.7 H ABG O2 Saturation 99.1 H ABG Hemoglobin 11.6 L ABG Potassium ABG Chloride Sodium 151 H Potassium Chloride 114.4 H Carbon Dioxide BUN 29 H Creatinine 0.6 L Glucose 116 H POC Glucose Ferritin Lactate Dehydrogenase C-Reactive Protein Total Protein 8.9 H Albumin 2.8 L Ur Specific [place] Urine WBC (Auto) 03/03/20 03/03/20 03/03/20 22:00 22:00 22:00 WBC RBC Hgb Hct RDW Lymph % (Auto) Seg Neutrophils % Seg Neuts % (Manual) Lymphocytes % (Manual) Seg Neutrophils # Seg Neutrophils # Man Lymphocytes # (Manual) PT INR D-Dimer 1415.56 H ABG pH POC ABG pCO2 ABG pO2 ABG HCO3 ABG O2 Saturation ABG Hemoglobin ABG Potassium ABG Chloride Sodium Potassium Chloride Carbon Dioxide BUN Creatinine Glucose 106 H POC Glucose Ferritin 522.1 H Lactate Dehydrogenase 240 H C-Reactive Protein 17.20 H Total Protein Albumin Ur Specific [place] Urine WBC (Auto) 03/03/20 03/04/20 03/04/20 22:15 02:59 02:59 WBC 15.2 H RBC 3.56 L Hgb 10.9 L Hct 33.4 L RDW 17.5 H Lymph % (Auto) Seg Neutrophils % Seg Neuts % (Manual) 93.0 H Lymphocytes % (Manual) 5.0 L Seg Neutrophils # Seg Neutrophils # Man 14.1 H Lymphocytes # (Manual) 0.8 L PT 15.9 H INR 1.29 H D-Dimer ABG pH POC ABG pCO2 ABG pO2 ABG HCO3 ABG O2 Saturation ABG Hemoglobin ABG Potassium ABG Chloride Sodium Potassium Chloride Carbon Dioxide BUN Creatinine Glucose POC Glucose Ferritin Lactate Dehydrogenase C-Reactive Protein Total Protein Albumin Ur Specific [place] 1.031 H Urine WBC (Auto) 8.0 H 03/04/20 03/04/20 03/05/20 02:59 16:16 04:00 WBC RBC Hgb Hct RDW Lymph % (Auto) Seg Neutrophils % Seg Neuts % (Manual) Lymphocytes % (Manual) Seg Neutrophils # Seg Neutrophils # Man Lymphocytes # (Manual) PT INR D-Dimer ABG pH 7.451 H 7.498 H POC ABG pCO2 ABG pO2 102.9 H 122.7 H ABG HCO3 ABG O2 Saturation ABG Hemoglobin 12.7 L 10.2 L ABG Potassium ABG Chloride Sodium 152 H Potassium Chloride 116.9 H Carbon Dioxide BUN 27 H Creatinine 0.4 L Glucose 127 H POC Glucose Ferritin Lactate Dehydrogenase C-Reactive Protein Total Protein Albumin Ur Specific [place] Urine WBC (Auto) 03/05/20 03/05/20 03/05/20 05:32 05:32 18:05 WBC 17.4 H RBC 3.35 L Hgb 10.3 L Hct 31.4 L RDW 17.2 H Lymph % (Auto) 10.9 L Seg Neutrophils % 85.3 H Seg Neuts % (Manual) Lymphocytes % (Manual) Seg Neutrophils # 14.8 H Seg Neutrophils # Man Lymphocytes # (Manual) PT INR D-Dimer ABG pH POC ABG pCO2 ABG pO2 ABG HCO3 ABG O2 Saturation ABG Hemoglobin ABG Potassium ABG Chloride Sodium 150 H 146 H Potassium 3.4 L Chloride 115.0 H 113.7 H Carbon Dioxide 20 L BUN 29 H Creatinine 0.5 L 0.3 L Glucose POC Glucose Ferritin Lactate Dehydrogenase C-Reactive Protein Total Protein Albumin Ur Specific [place] Urine WBC (Auto) 03/06/20 03/06/20 03/06/20 04:16 04:16 05:50 WBC 11.2 H RBC 3.05 L Hgb 9.2 L Hct 28.2 L RDW 16.8 H Lymph % (Auto) Seg Neutrophils % 80.0 H Seg Neuts % (Manual) Lymphocytes % (Manual) Seg Neutrophils # 9.0 H Seg Neutrophils # Man Lymphocytes # (Manual) PT INR D-Dimer ABG pH POC ABG pCO2 ABG pO2 194.8 H ABG HCO3 ABG O2 Saturation 99.3 H ABG Hemoglobin 9.2 L ABG Potassium ABG Chloride Sodium 146 H Potassium 3.1 L Chloride 111.3 H Carbon Dioxide BUN Creatinine 0.4 L Glucose POC Glucose Ferritin Lactate Dehydrogenase C-Reactive Protein Total Protein Albumin Ur Specific [place] Urine WBC (Auto) 03/07/20 03/07/20 03/07/20 02:54 05:47 06:03 WBC RBC 3.21 L Hgb 9.8 L Hct 28.6 L RDW 16.6 H Lymph % (Auto) Seg Neutrophils % 80.1 H Seg Neuts % (Manual) Lymphocytes % (Manual) Seg Neutrophils # 7.8 H Seg Neutrophils # Man Lymphocytes # (Manual) PT INR D-Dimer ABG pH 7.504 H POC ABG pCO2 30.5 L ABG pO2 ABG HCO3 ABG O2 Saturation ABG Hemoglobin 10.4 L ABG Potassium 2.7 L ABG Chloride 109.0 H Sodium Potassium Chloride Carbon Dioxide BUN Creatinine Glucose POC Glucose 126 H Ferritin Lactate Dehydrogenase C-Reactive Protein Total Protein Albumin Ur Specific [place] Urine WBC (Auto) 03/07/20 06:03 WBC RBC Hgb Hct RDW Lymph % (Auto) Seg Neutrophils % Seg Neuts % (Manual) Lymphocytes % (Manual) Seg Neutrophils # Seg Neutrophils # Man Lymphocytes # (Manual) PT INR D-Dimer ABG pH POC ABG pCO2 ABG pO2 ABG HCO3 ABG O2 Saturation ABG Hemoglobin ABG Potassium ABG Chloride Sodium Potassium 2.7 L* Chloride 107.6 H Carbon Dioxide 21 L BUN 8 L Creatinine 0.3 L Glucose 129 H POC Glucose Ferritin Lactate Dehydrogenase C-Reactive Protein Total Protein Albumin Ur Specific [place] Urine WBC (Auto) Allied health notes reviewed: RT
--- NOTE | 2020-03-07 17:24 | Progress Note ---
Assessment and Plan Cultures: SARS CoV2 PCR: Pending 03/03/2020 blood culture: In process 03/03/2020 sputum culture: Staph aureus A/P: 64-year-old male with traumatic brain injury, hypertension, indwelling tracheostomy and PEG tube, custodial resident at [place] was admitted to the hospital with fever, hypoxia: #Sepsis, leucocytosis likely secondary to bilateral pneumonia. UA without significant pyuria. Patient has indwelling catheter. Urine culture likely to be positive. #Acute on chronic respiratory failure: With chronic tracheostomy. #Hypernatremia Recs: - Continue vancomycin pending TAB of staph aureus in sputum. -Plan 8 days of antibiotics, can de-escalate to be improved and becomes extubated. We will continue to follow, please call with questions. Jhonathan Gray MD [facility] ([facility]) O: [phone] F: [phone] Subjective Date of service: 03/07/20 Interval history: Afebrile, normal white count now. Tracheal aspirate cultures with MRSA. Remains mechanically ventilated. Imaging personally viewed: Chest x-ray: Stable Objective - Exam Narrative Exam: Physical Exam: Constitutional: Intubated, sedated Head, Ears, Nose: Normocephalic, atraumatic. External ears, nose normal Eyes: Conjunctivae/corneas clear. No icterus. No ptosis. Neck: Intubated Oral: Intubated Cardiovascular: S1, S2 normal. Respiratory: Good air entry, clear to auscultation bilaterally GI: Soft, non-tender; bowel sounds normal. No peritoneal signs. Musculoskeletal: No pedal edema, no cyanosis. Skin: No rash or abscess Hem/Lymphatic: No palpable cervical or supraclavicular nodes. No lymphangitis Psych: Sedated Neurological: Sedated - Constitutional Vitals: Vital Signs Temp Pulse Resp BP Pulse Ox 98.5 F 88 20 130/81 100 03/07/20 04:00 03/07/20 15:33 03/07/20 09:55 03/07/20 15:33 03/07/20 15:33 Temperature -Last 24 Hours Temperature 98.5 F Temperature 98.0 F Temperature 99.6 F Temperature 99.4 F - Labs CBC & Chem 7: 03/07/20 06:03 03/07/20 06:03 Labs: Abnormal lab results 03/07/20 03/07/20 03/07/20 Range/Units 02:54 05:47 06:03 RBC 3.21 L (3.65-5.03) M/mm3 Hgb 9.8 L (11.8-15.2) gm/dl Hct 28.6 L (35.5-45.6) % RDW 16.6 H (13.2-15.2) % Seg Neutrophils % 80.1 H (40.0-70.0) % Seg Neutrophils # 7.8 H (1.8-7.7) K/mm3 ABG pH 7.504 H (7.320-7.450) POC ABG pCO2 30.5 L (32.0-48.0) mmHg ABG Hemoglobin 10.4 L (12.0-17.5) ABG Potassium 2.7 L (3.40-4.50) mmol/L ABG Chloride 109.0 H (98-107) mmol/L Potassium (3.6-5.0) mmol/L Chloride (98-107) mmol/L Carbon Dioxide (22-30) mmol/L BUN (9-20) mg/dL Creatinine (0.8-1.3) mg/dL Glucose (75-100) mg/dL POC Glucose 126 H (70-105) mg/dL 03/07/20 Range/Units 06:03 RBC (3.65-5.03) M/mm3 Hgb (11.8-15.2) gm/dl Hct (35.5-45.6) % RDW (13.2-15.2) % Seg Neutrophils % (40.0-70.0) % Seg Neutrophils # (1.8-7.7) K/mm3 ABG pH (7.320-7.450) POC ABG pCO2 (32.0-48.0) mmHg ABG Hemoglobin (12.0-17.5) ABG Potassium (3.40-4.50) mmol/L ABG Chloride (98-107) mmol/L Potassium 2.7 L* (3.6-5.0) mmol/L Chloride 107.6 H (98-107) mmol/L Carbon Dioxide 21 L (22-30) mmol/L BUN 8 L (9-20) mg/dL Creatinine 0.3 L (0.8-1.3) mg/dL Glucose 129 H (75-100) mg/dL POC Glucose (70-105) mg/dL
[2020-03-07] MEDS: ENOXAPARIN 40 MG/0.4 ML INJ SUB-Q SCH (22:11)
[2020-03-08] MEDS: FREE WATER PO SCH ×2 (01:30→04:21)
--- NOTE | 2020-03-08 04:00 | XRay Report ---
CHEST - 1 VIEW INDICATION: follow up respiratory failure COMPARISON: Yesterday FINDINGS: SUPPORT DEVICES: Stable support device positioning. HEART: Stable cardiomediastinal silhouette. LUNGS/PLEURA: Persistent mild patchy right basilar airspace disease. ADDITIONAL FINDINGS: None. IMPRESSION: Unchanged exam. Signer Name: Jimbo Leroy MD Signed: 03/08/2020 3:56 AM Workstation Name: [id number]
[2020-03-08 05:03] LABS: ABG Base Excess 1.6 mmol/L (-2.0-3.0); ABG HCO3 24.3 mmol/L (20.0-26.0); ABG Methemoglobin 0.4 % (0.0-1.5); ABG Oxygen Saturation 99.2 % (95.0-99.0); ABG PH 7.513 pH Units (7.350-7.450); ABG PO2 170.6 mm Hg (80.0-90.0)
--- NOTE | 2020-03-08 10:01 | Progress Note ---
Assessment and Plan Assessment and plan: --PUI; COVID-19 test negative on 03/04/2020 --MRSA pneumonia; respiratory and contact isolation Vancomycin, ID following --Bilateral pneumonia; Continue current antibiotics, follow cultures Ventilatory support, pulmonary and ID following --acute on chronic hypoxic respiratory failure; Secondary to underlying bilateral pneumonia Patient has chronic tracheostomy now on ventilatory support Continue nebulizers wean off ventilator as tolerated . Pulmonary critical following. --Severe hypokalemia; Potassium of 2.7, replaced with KCl 40 mEq via feeding tube every 3 hours x2 doses Follow magnesium levels, closely monitor electrolytes --Hypernatremia; resolved Gentle hydration supportive care --Sepsis secondary to bilateral pneumonia/UTI Continue current antibiotics, follow cultures, ID following --Severe malnutrition; hypoalbuminemia Supportive care, nutrition consult --DVT prophylaxis;Lovenox --Full CODE STATUS; We will closely monitor the patient and adjust management as needed The high probability of a clinically significant, sudden or life threatening deterioration of the [respiratory, metabolic and infectious disease] system(s) required my full and direct attention, intervention and personal management. The aggregate critical care time was [32] minutes. This time is in addition to time spent performing reported procedures but includes the following: [x] Data Review and interpretation [x] Patient assessment and monitoring of vital signs [x] Documentation [x] Medication orders and management 03/05/2020 -Patient is admitted for acute on chronic respiratory failure and currently on and requiring mechanical ventilation. Continue with IV antibiotics for UTI and sepsis. COVID-19 test is done and is negative. General Internal Medicine Physician consulted. Continue with the current management. 03/06/2020 -Patient is admitted for acute on chronic respiratory failure. Patient is on trach and vent. Patient is on IV cefepime and vancomycin per ID recommendation. Pulmonary consulted for vent and trach management. 03/07/2020; continue ventilatory support Wean off vent as tolerated, consults and recommendations noted and appreciated 03/08/2020; We will closely monitor the patient and adjust the management as needed Plan of care reviewed with the patient and his nurse MRSA pneumonia, vancomycin, contact isolation History Interval history: I have seen and examined the patient at the bedside in ICU this morning Patient is alert and awake, tracheostomy on ventilatory support Not in acute distress, Vital signs noted Hospitalist Physical - Constitutional Vitals: Temp Pulse Resp BP Pulse Ox 99.8 F H 106 H 81 H 120/75 99 12/01/20 03:24 03/08/20 08:53 03/08/20 08:00 03/08/20 08:53 03/08/20 08:53 General appearance: Present: no acute distress, cachectic, other (Tracheostomy, on ventilatory support) - EENT Eyes: Present: PERRL, EOM intact ENT: other (Patient is alert and awake) - Neck Neck: Present: supple, other (Tracheostomy on vent) - Respiratory Respiratory effort: normal Respiratory: bilateral: diminished, rhonchi, negative: rales, wheezing - Cardiovascular Rhythm: regular Heart Sounds: Present: S1 & S2 - Extremities Extremities: no ischemia, No edema - Abdominal General gastrointestinal: soft, non-tender, non-distended, normal bowel sounds - Integumentary Integumentary: Present: clear, warm - Psychiatric Psychiatric: other (Alert and awake) - Neurologic Neurologic: other (On vent) Results - Labs CBC & Chem 7: 03/07/20 06:03 03/07/20 06:03 Labs: Laboratory Last Values WBC 9.8 K/mm3 (4.5-11.0) 03/07/20 06:03 RBC 3.21 M/mm3 (3.65-5.03) L 03/07/20 06:03 Hgb 9.8 gm/dl (11.8-15.2) L 03/07/20 06:03 Hct 28.6 % (35.5-45.6) L 03/07/20 06:03 MCV 89 fl (84-94) 03/07/20 06:03 MCH 31 pg (28-32) 03/07/20 06:03 MCHC 34 % (32-34) 03/07/20 06:03 RDW 16.6 % (13.2-15.2) H 03/07/20 06:03 Plt Count 188 K/mm3 (140-440) 03/07/20 06:03 Lymph % (Auto) 13.7 % (13.4-35.0) 03/07/20 06:03 Ralls % (Auto) 5.4 % (0.0-7.3) 03/07/20 06:03 Eos % (Auto) 0.5 % (0.0-4.3) 03/07/20 06:03 Baso % (Auto) 0.3 % (0.0-1.8) 03/07/20 06:03 Lymph # (Auto) 1.3 K/mm3 (1.2-5.4) 03/07/20 06:03 Ralls # (Auto) 0.5 K/mm3 (0.0-0.8) 03/07/20 06:03 Eos # (Auto) 0.0 K/mm3 (0.0-0.4) 03/07/20 06:03 Baso # (Auto) 0.0 K/mm3 (0.0-0.1) 03/07/20 06:03 Add Manual Diff Complete 03/04/20 02:59 Total Counted 100 03/04/20 02:59 Seg Neutrophils % 80.1 % (40.0-70.0) H 03/07/20 06:03 Seg Neuts % (Manual) 93.0 % (40.0-70.0) H 03/04/20 02:59 Band Neutrophils % 0 % 03/04/20 02:59 Lymphocytes % (Manual) 5.0 % (13.4-35.0) L 03/04/20 02:59 Reactive Lymphs % (Man) 0 % 03/04/20 02:59 Monocytes % (Manual) 2.0 % (0.0-7.3) 03/04/20 02:59 Eosinophils % (Manual) 0 % (0.0-4.3) 03/04/20 02:59 Basophils % (Manual) 0 % (0.0-1.8) 03/04/20 02:59 Metamyelocytes % 0 % 03/04/20 02:59 Myelocytes % 0 % 03/04/20 02:59 Promyelocytes % 0 % 03/04/20 02:59 Blast Cells % 0 % 03/04/20 02:59 Nucleated RBC % Not Reportable 03/04/20 02:59 Seg Neutrophils # 7.8 K/mm3 (1.8-7.7) H 03/07/20 06:03 Seg Neutrophils # Man 14.1 K/mm3 (1.8-7.7) H 03/04/20 02:59 Band Neutrophils # 0.0 K/mm3 03/04/20 02:59 Lymphocytes # (Manual) 0.8 K/mm3 (1.2-5.4) L 03/04/20 02:59 Abs React Lymphs (Man) 0.0 K/mm3 03/04/20 02:59 Monocytes # (Manual) 0.3 K/mm3 (0.0-0.8) 03/04/20 02:59 Eosinophils # (Manual) 0.0 K/mm3 (0.0-0.4) 03/04/20 02:59 Basophils # (Manual) 0.0 K/mm3 (0.0-0.1) 03/04/20 02:59 Metamyelocytes # 0.0 K/mm3 03/04/20 02:59 Myelocytes # 0.0 K/mm3 03/04/20 02:59 Promyelocytes # 0.0 K/mm3 03/04/20 02:59 Blast Cells # 0.0 K/mm3 03/04/20 02:59 WBC Morphology Not Reportable 03/04/20 02:59 Hypersegmented Neuts Not Reportable 03/04/20 02:59 Hyposegmented Neuts Not Reportable 03/04/20 02:59 Hypogranular Neuts Not Reportable 03/04/20 02:59 Smudge Cells Not Reportable 03/04/20 02:59 Toxic Granulation Not Reportable 03/04/20 02:59 Toxic Vacuolation Not Reportable 03/04/20 02:59 Dohle Bodies Not Reportable 03/04/20 02:59 Pelger-Huet Anomaly Not Reportable 03/04/20 02:59 Mike Rods Not Reportable 03/04/20 02:59 Platelet Estimate Consistent w auto 03/04/20 02:59 Clumped Platelets Not Reportable 03/04/20 02:59 Plt Clumps, EDTA Not Reportable 03/04/20 02:59 Large Platelets Not Reportable 03/04/20 02:59 Giant Platelets Not Reportable 03/04/20 02:59 Platelet Satelliting Not Reportable 03/04/20 02:59 Plt Morphology Comment Not Reportable 03/04/20 02:59 RBC Morphology Not Reportable 03/04/20 02:59 Dimorphic RBCs Not Reportable 03/04/20 02:59 Polychromasia Not Reportable 03/04/20 02:59 Hypochromasia Few 03/04/20 02:59 Poikilocytosis Not Reportable 03/04/20 02:59 Anisocytosis Few 03/04/20 02:59 Microcytosis Not Reportable 03/04/20 02:59 Macrocytosis Not Reportable 03/04/20 02:59 Spherocytes Not Reportable 03/04/20 02:59 Pappenheimer Bodies Not Reportable 03/04/20 02:59 Sickle Cells Not Reportable 03/04/20 02:59 Target Cells Not Reportable 03/04/20 02:59 Tear Drop Cells Not Reportable 03/04/20 02:59 Ovalocytes Not Reportable 03/04/20 02:59 Helmet Cells Not Reportable 03/04/20 02:59 [place] Bodies Not Reportable 03/04/20 02:59 [place] Rings Not Reportable 03/04/20 02:59 [place] Cells Not Reportable 03/04/20 02:59 Bite Cells Not Reportable 03/04/20 02:59 Crenated Cell Not Reportable 03/04/20 02:59 Elliptocytes Not Reportable 03/04/20 02:59 Acanthocytes (Spur) Not Reportable 03/04/20 02:59 Rouleaux Not Reportable 03/04/20 02:59 Hemoglobin C Crystals Not Reportable 03/04/20 02:59 Schistocytes Not Reportable 03/04/20 02:59 Malaria parasites Not Reportable 03/04/20 02:59 Branden Bodies Not Reportable 03/04/20 02:59 Hem Pathologist Commnt No 03/04/20 02:59 PT 15.9 Sec. (12.2-14.9) H 03/04/20 02:59 INR 1.29 (0.87-1.13) H 03/04/20 02:59 D-Dimer 1415.56 ng/mlDDU (0-234) H 03/03/20 22:00 ABG pH 7.513 pH Units (7.350-7.450) H 03/08/20 04:30 POC ABG pCO2 30.5 mmHg (32.0-48.0) L 03/07/20 02:54 ABG pCO2 31.0 mm Hg 03/08/20 04:30 POC ABG pO2 92.4 mmHg (83-108) 03/07/20 02:54 ABG pO2 170.6 mm Hg (80.0-90.0) H 03/08/20 04:30 POC ABG HCO3 23.5 03/07/20 02:54 ABG HCO3 24.3 mmol/L (20.0-26.0) 03/08/20 04:30 ABG O2 Saturation 99.2 % (95.0-99.0) H 03/08/20 04:30 ABG O2 Content 12.4 (0.0-44) 03/08/20 04:30 POC ABG Base Excess 0.9 03/07/20 02:54 ABG Base Excess 1.6 mmol/L (-2.0-3.0) 03/08/20 04:30 ABG Hemoglobin 8.8 gm/dl (14.0-18.0) L 03/08/20 04:30 ABG Carboxyhemoglobin 1.0 % (0.0-5.0) 03/08/20 04:30 ABG Methemoglobin 0.4 % (0.0-1.5) 03/08/20 04:30 ABG Sodium 138.4 mmol/L (136.0-145.0) 03/07/20 02:54 ABG Potassium 2.7 mmol/L (3.40-4.50) L 03/07/20 02:54 ABG Chloride 109.0 mmol/L (98-107) H 03/07/20 02:54 ABG Glucose 90 mg/dL (65-95) 03/07/20 02:54 Oxyhemoglobin 97.7 % (95.0-99.0) 03/08/20 04:30 FiO2 30 % 03/08/20 04:30 Sodium 141 mmol/L (137-145) 03/07/20 06:03 Potassium 2.7 mmol/L (3.6-5.0) L* 03/07/20 06:03 Chloride 107.6 mmol/L (98-107) H 03/07/20 06:03 Carbon Dioxide 21 mmol/L (22-30) L 03/07/20 06:03 Anion Gap 15 mmol/L 03/07/20 06:03 BUN 8 mg/dL (9-20) L 03/07/20 06:03 Creatinine 0.3 mg/dL (0.8-1.3) L 03/07/20 06:03 Estimated GFR > 60 ml/min 03/07/20 06:03 BUN/Creatinine Ratio 27 % 03/07/20 06:03 Glucose 129 mg/dL (75-100) H 03/07/20 06:03 POC Glucose 87 mg/dL (70-105) 03/08/20 05:30 Lactic Acid 0.80 mmol/L (0.7-2.0) 03/04/20 02:59 Calcium 8.6 mg/dL (8.4-10.2) 03/07/20 06:03 Magnesium 2.00 mg/dL (1.7-2.3) 03/07/20 06:03 Ferritin 522.1 ng/mL (30.0-300.0) H 03/03/20 22:00 Total Bilirubin 0.40 mg/dL (0.1-1.2) 03/03/20 21:51 AST 24 units/L (5-40) 03/03/20 21:51 ALT 30 units/L (7-56) 03/03/20 21:51 Alkaline Phosphatase 92 units/L (35-129) 03/03/20 21:51 Lactate Dehydrogenase 240 units/L (91-180) H 03/03/20 22:00 C-Reactive Protein 17.20 mg/dL (0.00-1.30) H 03/03/20 22:00 Total Protein 8.9 g/dL (6.3-8.2) H 03/03/20 21:51 Albumin 2.8 g/dL (3.9-5) L 03/03/20 21:51 Albumin/Globulin Ratio 0.5 % 03/03/20 21:51 Procalcitonin 0.31 ng/mL (<0.15) 03/03/20 22:00 Arterial Blood Glucose 90 mg/dL (65-95) 03/07/20 02:54 Arterial Blood Ionized Calcium 4.7 mg/dL (4.6-5.3) 03/07/20 02:54 Urine Color Bing (Yellow) 03/03/20 22:15 Urine Turbidity Clear (Clear) 03/03/20 22:15 Urine pH 5.0 (5.0-7.0) 03/03/20 22:15 Ur Specific [place] 1.031 (1.003-1.030) H 03/03/20 22:15 Urine Protein 30 mg/dl mg/dL (Negative) 03/03/20 22:15 Urine Glucose (UA) Neg mg/dL (Negative) 03/03/20 22:15 Urine Ketones Neg mg/dL (Negative) 03/03/20 22:15 Urine Blood Neg (Negative) 03/03/20 22:15 Urine Nitrite Neg (Negative) 03/03/20 22:15 Urine Bilirubin Neg (Negative) 03/03/20 22:15 Urine Urobilinogen 4.0 mg/dL (<2.0) 03/03/20 22:15 Ur Leukocyte Esterase Tr (Negative) 03/03/20 22:15 Urine WBC (Auto) 8.0 /HPF (0.0-6.0) H 03/03/20 22:15 Urine RBC (Auto) 2.0 /HPF (0.0-6.0) 03/03/20 22:15 U Epithel Cells (Auto) 1.0 /HPF (0-13.0) 03/03/20 22:15 Urine Bacteria (Auto) 1+ /HPF (Negative) 03/03/20 22:15 Hyaline Casts 1 /LPF 03/03/20 22:15 Urine Mucus 1+ /HPF 03/03/20 22:15 Vancomycin Trough 9.0 ug/mL (5.0-20.0) 03/06/20 20:15 Coronavirus (PCR) Negative (Negative) 03/04/20 09:16 Microbiology: Microbiology 03/03/20 21:57 Peripheral/Venous Blood Culture - Preliminary NO GROWTH AFTER 4 DAYS 03/03/20 21:51 Peripheral/Venous Blood Culture - Preliminary NO GROWTH AFTER 4 DAYS 03/03/20 Unknown Tracheal Aspirate Sputum Culture - Final Methicillin Resist S. Aureus Sarah/IV: Voiding Method Indwelling Catheter IV Catheter Type [Left Upper INT / Saline Lock arm] IV Catheter Type [Right Peripheral IV Forearm] Active Medications - Current Medications Current Medications: Generic Name Dose Route Start Last Admin Trade Name Freq PRN Reason Stop Dose Admin Lipase/Protease/Amylase 1 each 03/06/20 14:54 Pancreazkandice hCeney 10,500 Unit FEEDTUBE PRN PRN For Clogged Feeding Tube Enoxaparin Sodium 40 mg 03/04/20 22:00 03/07/20 22:11 Enoxaparin SUB-Q 40 mg QDAY@2200 KESHAWN Administration Protocol Famotidine 20 mg 03/05/20 10:00 03/07/20 09:04 Pepcid FEEDTUBE 20 mg QDAY KESHAWN Administration Hydrophilic Ointment 1 applic 03/03/20 22:31 03/06/20 08:19 Vaseline Lip Therapy TP 1 applic Q2HR PRN Administration Dry Lips Vancomycin HCl 1,500 mg/ 530 mls @ 333.333 mls/hr 03/08/20 10:00 Sodium Chloride IV 03/12/20 23:59 Q12HR KESHAWN Magnesium Hydroxide 30 ml 03/03/20 23:45 Milk Of Magnesia PO Q4H PRN Constipation Morphine Sulfate 2 mg 03/03/20 23:45 03/06/20 02:23 Morphine IV 2 mg Q4H PRN Administration Pain, Moderate (4-6) Multi-Ingred Cream/Lotion/Oil/Oint 1 applic 03/03/20 22:31 Artificial Tears Ophth Oint OU Q4HR PRN Dry Eye(s) Ondansetron HCl 4 mg 03/03/20 23:45 03/05/20 16:12 Zofran IV 4 mg Q8H PRN Administration Nausea And Vomiting Simple Syrup 15 ml 03/06/20 14:54 Simple Syrup FEEDTUBE PRN PRN Hypoglycemia Simple Syrup 30 ml 03/06/20 14:54 Simple Syrup FEEDTUBE PRN PRN Hypoglycemia Sodium Bicarbonate 325 mg 03/06/20 14:54 Sodium Bicarbonate FEEDTUBE PRN PRN For Clogged Feeding Tube Sodium Chloride 10 ml 03/04/20 10:00 03/07/20 22:08 Sodium Chloride Flush Syringe 10 Ml IV 10 ml BID KESHAWN Administration Sodium Chloride 10 ml 03/03/20 23:45 Sodium Chloride Flush Syringe 10 Ml IV PRN PRN LINE FLUSH Nutrition/Malnutrition Assess - Dietary Evaluation Nutrition/Malnutrition Findings: Nutrition Notes Start: 03/04/20 09:15 Freq: Status: Active Protocol: Document 03/07/20 11:10 GISELE (Rec: 03/07/20 11:21 GISELE [id number]) Nutrition Notes Need for 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 Per RN note this am, pt with multiple loose stools; rectal tube in place and pt continues on abx therapy. Pt remains on vent support. Burn Absent Trauma Absent GI Symptoms Diarrhea Minimum of two criteria No Reduced Engine Mechanic Strength Measurably Reduced (severe) #1 Nutrition Diagnosis Inadequate oral intake As Evidenced by Signs and Symptoms pt remains NPO Diagnosis Progress(for reassessment Continues documentation) Is patient on ventilator? Yes Is Patient Ambulatory and/or Out of Bed No REE-([facility]-confined to bed) 1816.932 Kcal/Kg value to use for calculation 35 Approximate Energy Requirements Using 2219 kcal/Kg Calculation Used for Recommendations Kcal/kg Additional Notes Pro needs 1.25-1.5g/k-95g /day Fluid needs 1ml/kcal Nutrition Intervention Nutrition Support: Osmolite 1.5 at 60ml/hr with 175ml water flush q4h. Kcal 2,160 Protein (gm) 90 Carbohydrates (gm) 293 Fat (gm) 71 Fluid (mL) 1,097 Fiber (gm) 0 Goal #1 TF tolerance Goal #2 TF (at goal rate) to meet 100% energy and pro needs Goal #3 Wt maintenance and/or gain Goal #4 Wound healing Anticipated Discharge Needs: Continue TF Follow-Up By: 03/09/20 Additional Comments F/U: new TF, vent status, diarrhea
[2020-03-08] MEDS: FAMOTIDINE 20 MG TAB FEEDTUBE SCH (10:13)
[2020-03-08] MEDS: VANCOMYCIN 1,500 MG in SODIUM CHLORIDE 0.9% 500 ML 500 ML IV SCH ×2 (10:13→10:45)
--- NOTE | 2020-03-08 11:30 | Progress Note ---
Assessment and Plan Sepsis, leucocytosis likely secondary to bilateral pneumonia. Acute and chronic hypoxemic respiratory failure, on MVS Chronic tracheostomy Bilateral pneumonia [id number] infection Oropharyngeal dysphagia s/p PEG Chronic indwelling Martinez cather h/o TBI with chronic encephalopathy Hypernatremia - Contact isolation for MRSA - COVID-19 test negative - verbally redirected at bedside to control agitation - replaced Potassium yesterday - rest on AC qhs during wean - continue care as below otherwise; - continue Daily SAT and SBT assessment as tolerated - continue accuchecks with glycemic control per SSI (While critically ill target blood glucose of 140-180 mg/dL; avoid hypoglycemia) - sedation prn for target RASS 0 to -1 - continue to wean supplemental oxygen for target O2 sat's > 92% acutely - VAP bundle addressed - continue lung protective strategies - continue bronchodilators with pulmonary hygiene per RT - wean per pulmonary driven protocols otherwise - Free water via PEG tube for hypernatremia - Chronic martinez, catheter care - avoid nephrotoxins, renally dose all medications - continue to avoid benzodiazepine's, reduce the possibility of delirium - complete AB's per ID rec's, follow cultures and de-escalate as indicated (treat empirically for HAP; on Cefepime and Vancomycin) - prn analgesia per CPOT score - Maintenance of sleep-wake cycle, avoid delirium - continue enteral nutritional support at goal rate as tolerated - G.I. & VTE prophylaxis with Famotidine and enoxaparin - PT/OT/ROM exercises - continue mobility protocols for pressure ulcer prophylaxis - Monitor hemodynamics closely - continue other care per attending / other consultants - discharge planning ongoing concurrently .... Re-evaluate in am & prn CONDITION: CRITICAL PROGNOSIS: GUARDED CODE STATUS: FULL CODE The high probability of a clinically significant, sudden or life-threatening deterioration of the [cardiac, respiratory & neurologic] system(s) required my full and direct attention, intervention and personal management. The aggregate critical care time was [33] minutes without overlap. Time includes spent on; [x] Data Review and interpretation [x] Patient assessment and monitoring of vital signs [x] Documentation [x] Medication orders and management Subjective Date of service: 03/08/20 Principal diagnosis: Severe Sepsis; PNA; Ac on ch hypoxemic resp failure; [id number] Interval history: Patient is seen today for: Severe Sepsis; Pneumonia; Acute on chronic hypoxemic respiratory failure; Chronic tracheostomy; [id number] infection; h/o TBI with chronic encephalopathy; Hypernatremia Seen and examined at bedside; 24hour events reviewed; nursing and respiratory care staff consulted; no adverse overnight events reported to me; resting peacefully in bed; on PSV trial; with p-supp @ 15; denies acute pain; no N/V/F/C; serum potassium low Objective Vital Signs - 12hr 03/08/20 03/08/20 03/08/20 00:00 01:00 01:13 Temperature Pulse Rate 101 H 94 H 92 H Respiratory 22 26 H Rate Blood Pressure 113/84 137/86 137/86 O2 Sat by Pulse 100 100 100 Oximetry O2 Sat by Pulse Oximetry [ Assessment] 03/08/20 03/08/20 03/08/20 01:15 02:00 03:00 Temperature Pulse Rate 92 H 99 H 107 H Respiratory 78 H 20 27 H Rate Blood Pressure 134/82 134/82 O2 Sat by Pulse 100 100 100 Oximetry O2 Sat by Pulse Oximetry [ Assessment] 03/08/20 03/08/20 03/08/20 03:24 03:59 04:01 Temperature 99.8 F H Pulse Rate 110 H 112 H Respiratory 40 H Rate Blood Pressure 135/66 135/86 O2 Sat by Pulse 99 98 Oximetry O2 Sat by Pulse Oximetry [ Assessment] 03/08/20 03/08/20 03/08/20 04:04 04:05 05:00 Temperature Pulse Rate 92 H 111 H Respiratory 78 H 19 Rate Blood Pressure 141/84 O2 Sat by Pulse 100 98 Oximetry O2 Sat by Pulse 99 Oximetry [ Assessment] 03/08/20 03/08/20 03/08/20 05:55 06:00 07:00 Temperature Pulse Rate 101 H 80 Respiratory 100 H 20 20 Rate Blood Pressure 123/84 127/78 O2 Sat by Pulse 100 99 97 Oximetry O2 Sat by Pulse Oximetry [ Assessment] 03/08/20 03/08/20 03/08/20 08:00 08:53 11:08 Temperature Pulse Rate 81 106 H 80 Respiratory 20 Rate Blood Pressure 120/75 120/75 145/86 O2 Sat by Pulse 100 99 100 Oximetry O2 Sat by Pulse Oximetry [ Assessment] Constitutional: appears uncomfortable, other (elderly thin male with mildly increased respiratory effort at rest on MVS) Eyes: non-icteric ENT: oropharynx moist, other (+ midline Shiley tracheostomy) Neck: supple, no lymphadenopathy, no JVD Effort: mildly labored Ascultation: Bilateral: diminished breath sounds, rhonchi Percussion: Bilateral: not dull Cardiovascular: regular rate and rhythm, other (S1,S2) Gastrointestinal: normoactive bowel sounds, soft, non-tender, non-distended, other (PEG in place) Integumentary: normal Extremities: no cyanosis, no edema, pulses normal Neurologic: pupils equal and round, CN II-XII normal, unable to assess, other (RUExt weakness) Psychiatric: anxious CBC and BMP: 03/07/20 06:03 03/07/20 06:03 ABG, PT/INR, D-dimer: ABG ABG pH 7.513 pH Units (7.350-7.450) H 03/08/20 04:30 POC ABG pCO2 30.5 mmHg (32.0-48.0) L 03/07/20 02:54 ABG pCO2 31.0 mm Hg 03/08/20 04:30 POC ABG pO2 92.4 mmHg (83-108) 03/07/20 02:54 ABG pO2 170.6 mm Hg (80.0-90.0) H 03/08/20 04:30 POC ABG HCO3 23.5 03/07/20 02:54 ABG O2 Saturation 99.2 % (95.0-99.0) H 03/08/20 04:30 PT/INR, D-dimer PT 15.9 Sec. (12.2-14.9) H 03/04/20 02:59 INR 1.29 (0.87-1.13) H 03/04/20 02:59 D-Dimer 1415.56 ng/mlDDU (0-234) H 03/03/20 22:00 Abnormal lab findings: Abnormal Labs 03/03/20 03/03/20 03/03/20 01:10 21:51 21:51 WBC 15.5 H RBC Hgb Hct 35.3 L RDW 17.9 H Lymph % (Auto) 11.6 L Seg Neutrophils % 83.7 H Seg Neuts % (Manual) Lymphocytes % (Manual) Seg Neutrophils # 13.0 H Seg Neutrophils # Man Lymphocytes # (Manual) PT INR D-Dimer ABG pH POC ABG pCO2 ABG pO2 173.4 H ABG HCO3 26.7 H ABG O2 Saturation 99.1 H ABG Hemoglobin 11.6 L ABG Potassium ABG Chloride Sodium 151 H Potassium Chloride 114.4 H Carbon Dioxide BUN 29 H Creatinine 0.6 L Glucose 116 H POC Glucose Ferritin Lactate Dehydrogenase C-Reactive Protein Total Protein 8.9 H Albumin 2.8 L Ur Specific [place] Urine WBC (Auto) 03/03/20 03/03/20 03/03/20 22:00 22:00 22:00 WBC RBC Hgb Hct RDW Lymph % (Auto) Seg Neutrophils % Seg Neuts % (Manual) Lymphocytes % (Manual) Seg Neutrophils # Seg Neutrophils # Man Lymphocytes # (Manual) PT INR D-Dimer 1415.56 H ABG pH POC ABG pCO2 ABG pO2 ABG HCO3 ABG O2 Saturation ABG Hemoglobin ABG Potassium ABG Chloride Sodium Potassium Chloride Carbon Dioxide BUN Creatinine Glucose 106 H POC Glucose Ferritin 522.1 H Lactate Dehydrogenase 240 H C-Reactive Protein 17.20 H Total Protein Albumin Ur Specific [place] Urine WBC (Auto) 03/03/20 03/04/20 03/04/20 22:15 02:59 02:59 WBC 15.2 H RBC 3.56 L Hgb 10.9 L Hct 33.4 L RDW 17.5 H Lymph % (Auto) Seg Neutrophils % Seg Neuts % (Manual) 93.0 H Lymphocytes % (Manual) 5.0 L Seg Neutrophils # Seg Neutrophils # Man 14.1 H Lymphocytes # (Manual) 0.8 L PT 15.9 H INR 1.29 H D-Dimer ABG pH POC ABG pCO2 ABG pO2 ABG HCO3 ABG O2 Saturation ABG Hemoglobin ABG Potassium ABG Chloride Sodium Potassium Chloride Carbon Dioxide BUN Creatinine Glucose POC Glucose Ferritin Lactate Dehydrogenase C-Reactive Protein Total Protein Albumin Ur Specific [place] 1.031 H Urine WBC (Auto) 8.0 H 03/04/20 03/04/20 03/05/20 02:59 16:16 04:00 WBC RBC Hgb Hct RDW Lymph % (Auto) Seg Neutrophils % Seg Neuts % (Manual) Lymphocytes % (Manual) Seg Neutrophils # Seg Neutrophils # Man Lymphocytes # (Manual) PT INR D-Dimer ABG pH 7.451 H 7.498 H POC ABG pCO2 ABG pO2 102.9 H 122.7 H ABG HCO3 ABG O2 Saturation ABG Hemoglobin 12.7 L 10.2 L ABG Potassium ABG Chloride Sodium 152 H Potassium Chloride 116.9 H Carbon Dioxide BUN 27 H Creatinine 0.4 L Glucose 127 H POC Glucose Ferritin Lactate Dehydrogenase C-Reactive Protein Total Protein Albumin Ur Specific [place] Urine WBC (Auto) 03/05/20 03/05/20 03/05/20 05:32 05:32 18:05 WBC 17.4 H RBC 3.35 L Hgb 10.3 L Hct 31.4 L RDW 17.2 H Lymph % (Auto) 10.9 L Seg Neutrophils % 85.3 H Seg Neuts % (Manual) Lymphocytes % (Manual) Seg Neutrophils # 14.8 H Seg Neutrophils # Man Lymphocytes # (Manual) PT INR D-Dimer ABG pH POC ABG pCO2 ABG pO2 ABG HCO3 ABG O2 Saturation ABG Hemoglobin ABG Potassium ABG Chloride Sodium 150 H 146 H Potassium 3.4 L Chloride 115.0 H 113.7 H Carbon Dioxide 20 L BUN 29 H Creatinine 0.5 L 0.3 L Glucose POC Glucose Ferritin Lactate Dehydrogenase C-Reactive Protein Total Protein Albumin Ur Specific [place] Urine WBC (Auto) 03/06/20 03/06/20 03/06/20 04:16 04:16 05:50 WBC 11.2 H RBC 3.05 L Hgb 9.2 L Hct 28.2 L RDW 16.8 H Lymph % (Auto) Seg Neutrophils % 80.0 H Seg Neuts % (Manual) Lymphocytes % (Manual) Seg Neutrophils # 9.0 H Seg Neutrophils # Man Lymphocytes # (Manual) PT INR D-Dimer ABG pH POC ABG pCO2 ABG pO2 194.8 H ABG HCO3 ABG O2 Saturation 99.3 H ABG Hemoglobin 9.2 L ABG Potassium ABG Chloride Sodium 146 H Potassium 3.1 L Chloride 111.3 H Carbon Dioxide BUN Creatinine 0.4 L Glucose POC Glucose Ferritin Lactate Dehydrogenase C-Reactive Protein Total Protein Albumin Ur Specific [place] Urine WBC (Auto) 03/07/20 03/07/20 03/07/20 02:54 05:47 06:03 WBC RBC 3.21 L Hgb 9.8 L Hct 28.6 L RDW 16.6 H Lymph % (Auto) Seg Neutrophils % 80.1 H Seg Neuts % (Manual) Lymphocytes % (Manual) Seg Neutrophils # 7.8 H Seg Neutrophils # Man Lymphocytes # (Manual) PT INR D-Dimer ABG pH 7.504 H POC ABG pCO2 30.5 L ABG pO2 ABG HCO3 ABG O2 Saturation ABG Hemoglobin 10.4 L ABG Potassium 2.7 L ABG Chloride 109.0 H Sodium Potassium Chloride Carbon Dioxide BUN Creatinine Glucose POC Glucose 126 H Ferritin Lactate Dehydrogenase C-Reactive Protein Total Protein Albumin Ur Specific [place] Urine WBC (Auto) 03/07/20 03/07/20 03/07/20 06:03 17:22 17:25 WBC RBC Hgb Hct RDW Lymph % (Auto) Seg Neutrophils % Seg Neuts % (Manual) Lymphocytes % (Manual) Seg Neutrophils # Seg Neutrophils # Man Lymphocytes # (Manual) PT INR D-Dimer ABG pH POC ABG pCO2 ABG pO2 ABG HCO3 ABG O2 Saturation ABG Hemoglobin ABG Potassium ABG Chloride Sodium Potassium 2.7 L* Chloride 107.6 H Carbon Dioxide 21 L BUN 8 L Creatinine 0.3 L Glucose 129 H POC Glucose 119 H 125 H Ferritin Lactate Dehydrogenase C-Reactive Protein Total Protein Albumin Ur Specific [place] Urine WBC (Auto) 03/07/20 03/08/20 23:30 04:30 WBC RBC Hgb Hct RDW Lymph % (Auto) Seg Neutrophils % Seg Neuts % (Manual) Lymphocytes % (Manual) Seg Neutrophils # Seg Neutrophils # Man Lymphocytes # (Manual) PT INR D-Dimer ABG pH 7.513 H POC ABG pCO2 ABG pO2 170.6 H ABG HCO3 ABG O2 Saturation 99.2 H ABG Hemoglobin 8.8 L ABG Potassium ABG Chloride Sodium Potassium Chloride Carbon Dioxide BUN Creatinine Glucose POC Glucose 107 H Ferritin Lactate Dehydrogenase C-Reactive Protein Total Protein Albumin Ur Specific [place] Urine WBC (Auto) Chest x-ray: image reviewed (stable RLL process) Allied health notes reviewed: RT
--- NOTE | 2020-03-08 15:34 | Progress Note ---
Assessment and Plan Cultures: SARS CoV2 PCR: Negative 03/03/2020 blood culture: In process 03/03/2020 sputum culture: MRSA A/P: 64-year-old male with traumatic brain injury, hypertension, indwelling tracheostomy and PEG tube, snf resident at [place] was admitted to the hospital with fever, hypoxia: #Sepsis, leucocytosis likely secondary to bilateral pneumonia. UA without significant pyuria. Patient has indwelling catheter. Urine culture likely to be positive. #MRSA pneumonia #Acute on chronic respiratory failure: With chronic tracheostomy. #Hypernatremia Recs: - Continue vancomycin goal trough 10-20. -Plan 8 days of antibiotics, can de-escalate to Bactrim if improved and becomes extubated. We will continue to follow, please call with questions. Jhonathan Gray MD [facility] ([facility] O: [phone] F: [phone] Subjective Date of service: 03/08/20 Principal diagnosis: Severe Sepsis; PNA; Ac on ch hypoxemic resp failure; [id number] Interval history: Afebrile, T-max overnight 99.8. Sputum culture with MRSA. Remains mechanically ventilated Imaging personally viewed: Chest x-ray: Stable Objective - Exam Narrative Exam: Physical Exam: Constitutional: Intubated, sedated Head, Ears, Nose: Normocephalic, atraumatic. External ears, nose normal Eyes: Conjunctivae/corneas clear. No icterus. No ptosis. Neck: Intubated Oral: Intubated Cardiovascular: S1, S2 normal. Respiratory: Good air entry, clear to auscultation bilaterally GI: Soft, non-tender; bowel sounds normal. No peritoneal signs. Musculoskeletal: No pedal edema, no cyanosis. Skin: No rash or abscess Hem/Lymphatic: No palpable cervical or supraclavicular nodes. No lymphangitis Psych: Sedated Neurological: Sedated - Constitutional Vitals: Vital Signs Temp Pulse Resp BP Pulse Ox 99.8 F H 80 81 H 145/86 100 03/08/20 03:24 03/08/20 11:08 03/08/20 08:00 03/08/20 11:08 03/08/20 11:08 Temperature -Last 24 Hours Temperature 99.8 F Temperature 99.4 F Temperature 99.2 F - Labs CBC & Chem 7: 03/07/20 06:03 03/07/20 06:03 Labs: Abnormal lab results 03/07/20 03/07/20 03/07/20 Range/Units 17:22 17:25 23:30 ABG pH (7.350-7.450) pH Units ABG pO2 (80.0-90.0) mm Hg ABG O2 Saturation (95.0-99.0) % ABG Hemoglobin (14.0-18.0) gm/dl POC Glucose 119 H 125 H 107 H (70-105) mg/dL 03/08/20 Range/Units 04:30 ABG pH 7.513 H (7.350-7.450) pH Units ABG pO2 170.6 H (80.0-90.0) mm Hg ABG O2 Saturation 99.2 H (95.0-99.0) % ABG Hemoglobin 8.8 L (14.0-18.0) gm/dl POC Glucose (70-105) mg/dL
[2020-03-08] MEDS: MORPHINE 2 MG/1 ML INJ IV PRN (22:20)
[2020-03-08] MEDS: ENOXAPARIN 40 MG/0.4 ML INJ SUB-Q SCH (22:20)
[2020-03-08 22:50] LABS: Alanine Aminotransferase 22 units/L (7-56); Albumin 2.8 g/dL (3.9-5); Blood Urea Nitrogen 6 mg/dL (9-20); Calcium 8.5 mg/dL (8.4-10.2); Hemolysis Index 51
[2020-03-08 22:53] LABS: BUN/Creatinine Ratio 20
[2020-03-08] MEDS: LORazepam 2 MG/ML VIAL IV PRN (23:47)
--- NOTE | 2020-03-09 03:57 | XRay Report ---
CHEST - 1 VIEW INDICATION: follow up respiratory failure COMPARISON: Yesterday FINDINGS: SUPPORT DEVICES: Stable support device positioning. HEART: Stable cardiomediastinal silhouette. LUNGS/PLEURA: Persistent patchy bibasilar predominant airspace disease. ADDITIONAL FINDINGS: None. IMPRESSION: Unchanged exam. Signer Name: Jimbo Leroy MD Signed: 03/09/2020 3:52 AM Workstation Name: [id number]
[2020-03-09] MEDS: VANCOMYCIN 1,500 MG in SODIUM CHLORIDE 0.9% 500 ML 500 ML IV SCH ×2 (10:42→21:39)
[2020-03-09] MEDS: FAMOTIDINE 20 MG TAB FEEDTUBE SCH ×3 (10:42→21:24)
--- NOTE | 2020-03-09 14:57 | Progress Note ---
Assessment and Plan Sepsis, leucocytosis likely secondary to bilateral pneumonia. Acute and chronic hypoxemic respiratory failure, on MVS Chronic tracheostomy Bilateral pneumonia [id number] infection Oropharyngeal dysphagia s/p PEG Chronic indwelling Martinez cather h/o TBI with chronic encephalopathy Hypernatremia - reduced set rate to 12/min re: apneas and alkalosis - continue contact isolation for MRSA - rest on AC qhs during wean - continue care as below otherwise; - continue Daily SAT and SBT assessment as tolerated - continue accuchecks with glycemic control per SSI (While critically ill target blood glucose of 140-180 mg/dL; avoid hypoglycemia) - sedation prn for target RASS 0 to -1 - continue to wean supplemental oxygen for target O2 sat's > 92% acutely - VAP bundle addressed - continue lung protective strategies - continue bronchodilators with pulmonary hygiene per RT - wean per pulmonary driven protocols otherwise - Free water via PEG tube for hypernatremia - Chronic mratinez, catheter care - avoid nephrotoxins, renally dose all medications - continue to avoid benzodiazepine's, reduce the possibility of delirium - complete AB's per ID rec's, follow cultures and de-escalate as indicated (treat empirically for HAP; on Cefepime and Vancomycin) - prn analgesia per CPOT score - Maintenance of sleep-wake cycle, avoid delirium - continue enteral nutritional support at goal rate as tolerated - G.I. & VTE prophylaxis with Famotidine and enoxaparin - PT/OT/ROM exercises - continue mobility protocols for pressure ulcer prophylaxis - Monitor hemodynamics closely - continue other care per attending / other consultants - discharge planning ongoing concurrently .... Re-evaluate in am & prn CONDITION: CRITICAL PROGNOSIS: GUARDED CODE STATUS: FULL CODE The high probability of a clinically significant, sudden or life-threatening deterioration of the [cardiac, respiratory & neurologic] system(s) required my full and direct attention, intervention and personal management. The aggregate critical care time was [31] minutes without overlap. Time includes spent on; [x] Data Review and interpretation [x] Patient assessment and monitoring of vital signs [x] Documentation [x] Medication orders and management Subjective Date of service: 03/09/20 Principal diagnosis: Severe Sepsis; PNA; Ac on ch hypoxemic resp failure; [id number] Interval history: Patient is seen today for: Severe Sepsis; Pneumonia; Acute on chronic hypoxemic respiratory failure; Chronic tracheostomy; [id number] infection; h/o TBI with chronic encephalopathy; Hypernatremia Seen and examined at bedside; 24hour events reviewed; nursing and respiratory care staff consulted; no adverse overnight events reported to me; resting peacefully in bed; on PSV trial but weaning tenuously; agitated when awake; No N/V/F/C Objective Vital Signs - 12hr 03/09/20 03/09/20 03/09/20 03:00 03:06 04:00 Temperature 98.0 F Pulse Rate 92 H 67 Respiratory 26 H 20 Rate Blood Pressure 125/80 124/71 O2 Sat by Pulse 99 100 Oximetry O2 Sat by Pulse 99 Oximetry [ Assessment] 03/09/20 03/09/20 03/09/20 04:45 05:00 06:00 Temperature Pulse Rate 68 70 75 Respiratory 20 24 Rate Blood Pressure 112/73 112/73 126/69 O2 Sat by Pulse 100 100 100 Oximetry O2 Sat by Pulse Oximetry [ Assessment] 03/09/20 03/09/20 03/09/20 07:00 08:00 08:58 Temperature Pulse Rate 81 74 63 Respiratory 25 H 20 Rate Blood Pressure 126/69 120/69 115/78 O2 Sat by Pulse 100 100 100 Oximetry O2 Sat by Pulse Oximetry [ Assessment] 03/09/20 03/09/20 03/09/20 09:00 10:00 11:00 Temperature Pulse Rate 78 69 63 Respiratory 24 16 16 Rate Blood Pressure 120/69 115/78 123/68 O2 Sat by Pulse 99 100 100 Oximetry O2 Sat by Pulse Oximetry [ Assessment] 03/09/20 03/09/20 03/09/20 12:00 12:41 12:48 Temperature Pulse Rate 68 90 Respiratory 18 Rate Blood Pressure 127/72 127/72 O2 Sat by Pulse 100 99 Oximetry O2 Sat by Pulse 100 Oximetry [ Assessment] 03/09/20 13:00 Temperature Pulse Rate 96 H Respiratory 24 Rate Blood Pressure 136/79 O2 Sat by Pulse 100 Oximetry O2 Sat by Pulse Oximetry [ Assessment] Constitutional: no acute distress, other (elderly thin male with mildly increased respiratory effort at rest on MVS) Eyes: non-icteric ENT: oropharynx moist, other (+ midline Shiley tracheostomy) Neck: supple, no lymphadenopathy, no JVD Effort: mildly labored Ascultation: Bilateral: diminished breath sounds, rhonchi Percussion: Bilateral: not dull Cardiovascular: regular rate and rhythm, other (S1,S2) Gastrointestinal: normoactive bowel sounds, soft, non-tender, non-distended, other (PEG in place) Integumentary: normal Extremities: no cyanosis, no edema, pulses normal Neurologic: pupils equal and round, CN II-XII normal, unable to assess, other (RUExt weakness) Psychiatric: anxious CBC and BMP: 03/10/20 08:10 03/10/20 08:10 ABG, PT/INR, D-dimer: ABG ABG pH 7.498 (7.320-7.450) H 03/09/20 04:17 POC ABG pCO2 32.7 mmHg (32.0-48.0) 03/09/20 04:17 ABG pCO2 31.0 mm Hg 03/08/20 04:30 POC ABG pO2 125.5 mmHg (83-108) H 03/09/20 04:17 ABG pO2 170.6 mm Hg (80.0-90.0) H 03/08/20 04:30 POC ABG HCO3 24.8 03/09/20 04:17 ABG O2 Saturation 99.2 % (95.0-99.0) H 03/08/20 04:30 PT/INR, D-dimer PT 15.9 Sec. (12.2-14.9) H 03/04/20 02:59 INR 1.29 (0.87-1.13) H 03/04/20 02:59 D-Dimer 1415.56 ng/mlDDU (0-234) H 03/03/20 22:00 Abnormal lab findings: Abnormal Labs 03/03/20 03/03/20 03/03/20 01:10 21:51 21:51 WBC 15.5 H RBC Hgb Hct 35.3 L RDW 17.9 H Lymph % (Auto) 11.6 L Seg Neutrophils % 83.7 H Seg Neuts % (Manual) Lymphocytes % (Manual) Seg Neutrophils # 13.0 H Seg Neutrophils # Man Lymphocytes # (Manual) PT INR D-Dimer ABG pH POC ABG pCO2 POC ABG pO2 ABG pO2 173.4 H ABG HCO3 26.7 H ABG O2 Saturation 99.1 H ABG Hemoglobin 11.6 L ABG Potassium ABG Chloride ABG Glucose Sodium 151 H Potassium Chloride 114.4 H Carbon Dioxide BUN 29 H Creatinine 0.6 L Glucose 116 H POC Glucose Ferritin Lactate Dehydrogenase C-Reactive Protein Total Protein 8.9 H Albumin 2.8 L Arterial Blood Glucose Ur Specific [place] Urine WBC (Auto) 03/03/20 03/03/20 03/03/20 22:00 22:00 22:00 WBC RBC Hgb Hct RDW Lymph % (Auto) Seg Neutrophils % Seg Neuts % (Manual) Lymphocytes % (Manual) Seg Neutrophils # Seg Neutrophils # Man Lymphocytes # (Manual) PT INR D-Dimer 1415.56 H ABG pH POC ABG pCO2 POC ABG pO2 ABG pO2 ABG HCO3 ABG O2 Saturation ABG Hemoglobin ABG Potassium ABG Chloride ABG Glucose Sodium Potassium Chloride Carbon Dioxide BUN Creatinine Glucose 106 H POC Glucose Ferritin 522.1 H Lactate Dehydrogenase 240 H C-Reactive Protein 17.20 H Total Protein Albumin Arterial Blood Glucose Ur Specific [place] Urine WBC (Auto) 03/03/20 03/04/20 03/04/20 22:15 02:59 02:59 WBC 15.2 H RBC 3.56 L Hgb 10.9 L Hct 33.4 L RDW 17.5 H Lymph % (Auto) Seg Neutrophils % Seg Neuts % (Manual) 93.0 H Lymphocytes % (Manual) 5.0 L Seg Neutrophils # Seg Neutrophils # Man 14.1 H Lymphocytes # (Manual) 0.8 L PT 15.9 H INR 1.29 H D-Dimer ABG pH POC ABG pCO2 POC ABG pO2 ABG pO2 ABG HCO3 ABG O2 Saturation ABG Hemoglobin ABG Potassium ABG Chloride ABG Glucose Sodium Potassium Chloride Carbon Dioxide BUN Creatinine Glucose POC Glucose Ferritin Lactate Dehydrogenase C-Reactive Protein Total Protein Albumin Arterial Blood Glucose Ur Specific [place] 1.031 H Urine WBC (Auto) 8.0 H 03/04/20 03/04/20 03/05/20 02:59 16:16 04:00 WBC RBC Hgb Hct RDW Lymph % (Auto) Seg Neutrophils % Seg Neuts % (Manual) Lymphocytes % (Manual) Seg Neutrophils # Seg Neutrophils # Man Lymphocytes # (Manual) PT INR D-Dimer ABG pH 7.451 H 7.498 H POC ABG pCO2 POC ABG pO2 ABG pO2 102.9 H 122.7 H ABG HCO3 ABG O2 Saturation ABG Hemoglobin 12.7 L 10.2 L ABG Potassium ABG Chloride ABG Glucose Sodium 152 H Potassium Chloride 116.9 H Carbon Dioxide BUN 27 H Creatinine 0.4 L Glucose 127 H POC Glucose Ferritin Lactate Dehydrogenase C-Reactive Protein Total Protein Albumin Arterial Blood Glucose Ur Specific [place] Urine WBC (Auto) 03/05/20 03/05/20 03/05/20 05:32 05:32 18:05 WBC 17.4 H RBC 3.35 L Hgb 10.3 L Hct 31.4 L RDW 17.2 H Lymph % (Auto) 10.9 L Seg Neutrophils % 85.3 H Seg Neuts % (Manual) Lymphocytes % (Manual) Seg Neutrophils # 14.8 H Seg Neutrophils # Man Lymphocytes # (Manual) PT INR D-Dimer ABG pH POC ABG pCO2 POC ABG pO2 ABG pO2 ABG HCO3 ABG O2 Saturation ABG Hemoglobin ABG Potassium ABG Chloride ABG Glucose Sodium 150 H 146 H Potassium 3.4 L Chloride 115.0 H 113.7 H Carbon Dioxide 20 L BUN 29 H Creatinine 0.5 L 0.3 L Glucose POC Glucose Ferritin Lactate Dehydrogenase C-Reactive Protein Total Protein Albumin Arterial Blood Glucose Ur Specific [place] Urine WBC (Auto) 03/06/20 03/06/20 03/06/20 04:16 04:16 05:50 WBC 11.2 H RBC 3.05 L Hgb 9.2 L Hct 28.2 L RDW 16.8 H Lymph % (Auto) Seg Neutrophils % 80.0 H Seg Neuts % (Manual) Lymphocytes % (Manual) Seg Neutrophils # 9.0 H Seg Neutrophils # Man Lymphocytes # (Manual) PT INR D-Dimer ABG pH POC ABG pCO2 POC ABG pO2 ABG pO2 194.8 H ABG HCO3 ABG O2 Saturation 99.3 H ABG Hemoglobin 9.2 L ABG Potassium ABG Chloride ABG Glucose Sodium 146 H Potassium 3.1 L Chloride 111.3 H Carbon Dioxide BUN Creatinine 0.4 L Glucose POC Glucose Ferritin Lactate Dehydrogenase C-Reactive Protein Total Protein Albumin Arterial Blood Glucose Ur Specific [place] Urine WBC (Auto) 03/07/20 03/07/20 03/07/20 02:54 05:47 06:03 WBC RBC 3.21 L Hgb 9.8 L Hct 28.6 L RDW 16.6 H Lymph % (Auto) Seg Neutrophils % 80.1 H Seg Neuts % (Manual) Lymphocytes % (Manual) Seg Neutrophils # 7.8 H Seg Neutrophils # Man Lymphocytes # (Manual) PT INR D-Dimer ABG pH 7.504 H POC ABG pCO2 30.5 L POC ABG pO2 ABG pO2 ABG HCO3 ABG O2 Saturation ABG Hemoglobin 10.4 L ABG Potassium 2.7 L ABG Chloride 109.0 H ABG Glucose Sodium Potassium Chloride Carbon Dioxide BUN Creatinine Glucose POC Glucose 126 H Ferritin Lactate Dehydrogenase C-Reactive Protein Total Protein Albumin Arterial Blood Glucose Ur Specific [place] Urine WBC (Auto) 03/07/20 03/07/20 03/07/20 06:03 17:22 17:25 WBC RBC Hgb Hct RDW Lymph % (Auto) Seg Neutrophils % Seg Neuts % (Manual) Lymphocytes % (Manual) Seg Neutrophils # Seg Neutrophils # Man Lymphocytes # (Manual) PT INR D-Dimer ABG pH POC ABG pCO2 POC ABG pO2 ABG pO2 ABG HCO3 ABG O2 Saturation ABG Hemoglobin ABG Potassium ABG Chloride ABG Glucose Sodium Potassium 2.7 L* Chloride 107.6 H Carbon Dioxide 21 L BUN 8 L Creatinine 0.3 L Glucose 129 H POC Glucose 119 H 125 H Ferritin Lactate Dehydrogenase C-Reactive Protein Total Protein Albumin Arterial Blood Glucose Ur Specific [place] Urine WBC (Auto) 03/07/20 03/08/20 03/08/20 23:30 04:30 16:56 WBC RBC Hgb Hct RDW Lymph % (Auto) Seg Neutrophils % Seg Neuts % (Manual) Lymphocytes % (Manual) Seg Neutrophils # Seg Neutrophils # Man Lymphocytes # (Manual) PT INR D-Dimer ABG pH 7.513 H POC ABG pCO2 POC ABG pO2 ABG pO2 170.6 H ABG HCO3 ABG O2 Saturation 99.2 H ABG Hemoglobin 8.8 L ABG Potassium ABG Chloride ABG Glucose Sodium Potassium Chloride Carbon Dioxide BUN Creatinine Glucose POC Glucose 107 H 108 H Ferritin Lactate Dehydrogenase C-Reactive Protein Total Protein Albumin Arterial Blood Glucose Ur Specific [place] Urine WBC (Auto) 03/08/20 03/09/20 03/09/20 21:07 04:17 11:08 WBC RBC Hgb Hct RDW Lymph % (Auto) Seg Neutrophils % Seg Neuts % (Manual) Lymphocytes % (Manual) Seg Neutrophils # Seg Neutrophils # Man Lymphocytes # (Manual) PT INR D-Dimer ABG pH 7.498 H POC ABG pCO2 POC ABG pO2 125.5 H ABG pO2 ABG HCO3 ABG O2 Saturation ABG Hemoglobin ABG Potassium ABG Chloride 109.0 H ABG Glucose 103 H Sodium Potassium Chloride 109.4 H Carbon Dioxide BUN 6 L Creatinine 0.3 L Glucose 121 H POC Glucose 123 H Ferritin Lactate Dehydrogenase C-Reactive Protein Total Protein Albumin 2.8 L Arterial Blood Glucose 103 H Ur Specific [place] Urine WBC (Auto) Chest x-ray: image reviewed (COPD; trach in good position) Allied health notes reviewed: nursing
--- NOTE | 2020-03-09 15:05 | Progress Note ---
Assessment and Plan Cultures: SARS CoV2 PCR: Negative 03/03/2020 blood culture: In process 03/03/2020 sputum culture: MRSA A/P: 64-year-old male with traumatic brain injury, hypertension, indwelling tracheostomy and PEG tube, shelter resident at [place] was admitted to the hospital with fever, hypoxia: #Sepsis, leucocytosis likely secondary to bilateral pneumonia. UA without significant pyuria. Patient has indwelling catheter. Urine culture likely to be positive. #MRSA pneumonia #Acute on chronic respiratory failure: With chronic tracheostomy. #Hypernatremia Recs: - Continue vancomycin goal trough 10-20. -Plan 8 days of antibiotics, can de-escalate to Bactrim if improved O2 requirements We will continue to follow, please call with questions. Jhonathan Gray MD [facility] ([facility] O: [phone] F: [phone] Subjective Date of service: 03/09/20 Principal diagnosis: Severe Sepsis; PNA; Ac on ch hypoxemic resp failure; [id number] Interval history: Afebrile. Remains mechanically ventilated Imaging personally viewed: Chest x-ray: Stable Objective - Exam Narrative Exam: Physical Exam: Constitutional: Mechanically ventilated through tracheostomy Head, Ears, Nose: Normocephalic, atraumatic. External ears, nose normal Eyes: Conjunctivae/corneas clear. No icterus. No ptosis. Neck: Tracheostomy Oral: Tracheostomy Cardiovascular: S1, S2 normal. Respiratory: Good air entry, clear to auscultation bilaterally GI: Soft, non-tender; bowel sounds normal. No peritoneal signs. Musculoskeletal: No pedal edema, no cyanosis. Skin: No rash or abscess Hem/Lymphatic: No palpable cervical or supraclavicular nodes. No lymphangitis Psych: Sedated Neurological: Sedated - Constitutional Vitals: Vital Signs Temp Pulse Resp BP Pulse Ox 98.0 F 96 H 24 136/79 100 03/09/20 04:00 03/09/20 13:00 03/09/20 13:00 03/09/20 13:00 03/09/20 13:00 Temperature -Last 24 Hours Temperature 98.0 F Temperature 98.1 F Temperature 97.7 F - Labs CBC & Chem 7: 03/07/20 06:03 12/01/20 21:07 Labs: Abnormal lab results 03/08/20 03/08/20 03/09/20 Range/Units 16:56 21:07 04:17 ABG pH 7.498 H (7.320-7.450) POC ABG pO2 125.5 H (83-108) mmHg ABG Chloride 109.0 H (98-107) mmol/L ABG Glucose 103 H (65-95) mg/dL Chloride 109.4 H (98-107) mmol/L BUN 6 L (9-20) mg/dL Creatinine 0.3 L (0.8-1.3) mg/dL Glucose 121 H (75-100) mg/dL POC Glucose 108 H (70-105) mg/dL Albumin 2.8 L (3.9-5) g/dL Arterial Blood Glucose 103 H (65-95) mg/dL 03/09/20 Range/Units 11:08 ABG pH (7.320-7.450) POC ABG pO2 (83-108) mmHg ABG Chloride (98-107) mmol/L ABG Glucose (65-95) mg/dL Chloride (98-107) mmol/L BUN (9-20) mg/dL Creatinine (0.8-1.3) mg/dL Glucose (75-100) mg/dL POC Glucose 123 H (70-105) mg/dL Albumin (3.9-5) g/dL Arterial Blood Glucose (65-95) mg/dL
--- NOTE | 2020-03-09 17:58 | Progress Note ---
Assessment and Plan Assessment and plan: --PUI; COVID-19 test negative on 03/04/2020 --acute on chronic hypoxic respiratory failure; Secondary to underlying bilateral pneumonia Patient has chronic tracheostomy now on ventilatory support Continue nebulizers wean off ventilator as tolerated . Pulmonary critical following. --MRSA pneumonia; respiratory and contact isolation Vancomycin, --Bilateral pneumonia; Continue current antibiotics, follow cultures Ventilatory support, pulmonary and ID following --Severe hypokalemia; resolved Closely monitor lecture lites --Hypernatremia; resolved Gentle hydration supportive care --Sepsis secondary to bilateral pneumonia/UTI Continue current antibiotics, follow cultures, ID following --Severe malnutrition; hypoalbuminemia Supportive care, nutrition consult --DVT prophylaxis;Lovenox --Restrain the patient for agitation --Full CODE STATUS; We will closely monitor the patient and adjust the management as needed The high probability of a clinically significant, sudden or life threatening deterioration of the [respiratory, metabolic and infectious disease] system(s) required my full and direct attention, intervention and personal management. The aggregate critical care time was [35] minutes. This time is in addition to time spent performing reported procedures but includes the following: [x] Data Review and interpretation [x] Patient assessment and monitoring of vital signs [x] Documentation [x] Medication orders and management 03/05/2020 -Patient is admitted for acute on chronic respiratory failure and currently on and requiring mechanical ventilation. Continue with IV antibiotics for UTI and sepsis. COVID-19 test is done and is negative. [employer] consulted. Continue with the current management. 03/06/2020 -Patient is admitted for acute on chronic respiratory failure. Patient is on trach and vent. Patient is on IV cefepime and vancomycin per ID recommendation. Pulmonary consulted for vent and trach management. 03/07/2020; continue ventilatory support Wean off vent as tolerated, consults and recommendations noted and appreciated 03/08/2020; We will closely monitor the patient and adjust the management as needed Plan of care reviewed with the patient and his nurse MRSA pneumonia, vancomycin, contact isolation 03/09/2020; patient remains on ventilatory support, on IV antibiotics Wean off vent as tolerated, training consultant recommendations noted and appreciated Plan of care reviewed with the patient's nurse and case management History Interval history: I have seen and examined the patient at the bedside this morning in ICU Patient's chart and medications reviewed Patient status post tracheostomy on ventilator support Sedated sleeping Not in acute distress Vital signs noted Hospitalist Physical - Constitutional Vitals: Temp Pulse Resp BP Pulse Ox 98.0 F 79 38 H 131/85 99 03/09/20 04:00 03/09/20 16:53 03/09/20 15:00 03/09/20 16:53 03/09/20 16:53 General appearance: Present: no acute distress, cachectic, other (Tracheostomy, on ventilatory support) - EENT Eyes: Present: PERRL, EOM intact ENT: other (Tracheostomy on vent) - Neck Neck: Present: other (Tracheostomy on vent) - Respiratory Respiratory effort: normal Respiratory: bilateral: diminished, rhonchi, negative: rales, wheezing - Cardiovascular Rhythm: regular Heart Sounds: Present: S1 & S2 - Extremities Extremities: no ischemia, No edema - Abdominal General gastrointestinal: soft, non-tender, non-distended, normal bowel sounds - Integumentary Integumentary: Present: clear, warm - Psychiatric Psychiatric: other (On vent) - Neurologic Neurologic: other (On vent) Results - Labs CBC & Chem 7: 03/07/20 06:03 03/08/20 21:07 Labs: Laboratory Last Values WBC 9.8 K/mm3 (4.5-11.0) 03/07/20 06:03 RBC 3.21 M/mm3 (3.65-5.03) L 03/07/20 06:03 Hgb 9.8 gm/dl (11.8-15.2) L 03/07/20 06:03 Hct 28.6 % (35.5-45.6) L 03/07/20 06:03 MCV 89 fl (84-94) 03/07/20 06:03 MCH 31 pg (28-32) 03/07/20 06:03 MCHC 34 % (32-34) 03/07/20 06:03 RDW 16.6 % (13.2-15.2) H 03/07/20 06:03 Plt Count 188 K/mm3 (140-440) 03/07/20 06:03 Lymph % (Auto) 13.7 % (13.4-35.0) 03/07/20 06:03 [place] % (Auto) 5.4 % (0.0-7.3) 03/07/20 06:03 Eos % (Auto) 0.5 % (0.0-4.3) 03/07/20 06:03 Baso % (Auto) 0.3 % (0.0-1.8) 03/07/20 06:03 Lymph # (Auto) 1.3 K/mm3 (1.2-5.4) 03/07/20 06:03 [place] # (Auto) 0.5 K/mm3 (0.0-0.8) 03/07/20 06:03 Eos # (Auto) 0.0 K/mm3 (0.0-0.4) 03/07/20 06:03 Baso # (Auto) 0.0 K/mm3 (0.0-0.1) 03/07/20 06:03 Add Manual Diff Complete 03/04/20 02:59 Total Counted 100 03/04/20 02:59 Seg Neutrophils % 80.1 % (40.0-70.0) H 03/07/20 06:03 Seg Neuts % (Manual) 93.0 % (40.0-70.0) H 03/04/20 02:59 Band Neutrophils % 0 % 03/04/20 02:59 Lymphocytes % (Manual) 5.0 % (13.4-35.0) L 03/04/20 02:59 Reactive Lymphs % (Man) 0 % 03/04/20 02:59 Monocytes % (Manual) 2.0 % (0.0-7.3) 03/04/20 02:59 Eosinophils % (Manual) 0 % (0.0-4.3) 03/04/20 02:59 Basophils % (Manual) 0 % (0.0-1.8) 03/04/20 02:59 Metamyelocytes % 0 % 03/04/20 02:59 Myelocytes % 0 % 03/04/20 02:59 Promyelocytes % 0 % 03/04/20 02:59 Blast Cells % 0 % 03/04/20 02:59 Nucleated RBC % Not Reportable 03/04/20 02:59 Seg Neutrophils # 7.8 K/mm3 (1.8-7.7) H 03/07/20 06:03 Seg Neutrophils # Man 14.1 K/mm3 (1.8-7.7) H 03/04/20 02:59 Band Neutrophils # 0.0 K/mm3 03/04/20 02:59 Lymphocytes # (Manual) 0.8 K/mm3 (1.2-5.4) L 03/04/20 02:59 Abs React Lymphs (Man) 0.0 K/mm3 03/04/20 02:59 Monocytes # (Manual) 0.3 K/mm3 (0.0-0.8) 03/04/20 02:59 Eosinophils # (Manual) 0.0 K/mm3 (0.0-0.4) 03/04/20 02:59 Basophils # (Manual) 0.0 K/mm3 (0.0-0.1) 03/04/20 02:59 Metamyelocytes # 0.0 K/mm3 03/04/20 02:59 Myelocytes # 0.0 K/mm3 03/04/20 02:59 Promyelocytes # 0.0 K/mm3 03/04/20 02:59 Blast Cells # 0.0 K/mm3 03/04/20 02:59 WBC Morphology Not Reportable 03/04/20 02:59 Hypersegmented Neuts Not Reportable 03/04/20 02:59 Hyposegmented Neuts Not Reportable 03/04/20 02:59 Hypogranular Neuts Not Reportable 03/04/20 02:59 Smudge Cells Not Reportable 03/04/20 02:59 Toxic Granulation Not Reportable 03/04/20 02:59 Toxic Vacuolation Not Reportable 03/04/20 02:59 Dohle Bodies Not Reportable 03/04/20 02:59 Pelger-Huet Anomaly Not Reportable 03/04/20 02:59 Mike Rods Not Reportable 03/04/20 02:59 Platelet Estimate Consistent w auto 03/04/20 02:59 Clumped Platelets Not Reportable 03/04/20 02:59 Plt Clumps, EDTA Not Reportable 03/04/20 02:59 Large Platelets Not Reportable 03/04/20 02:59 Giant Platelets Not Reportable 03/04/20 02:59 Platelet Satelliting Not Reportable 03/04/20 02:59 Plt Morphology Comment Not Reportable 03/04/20 02:59 RBC Morphology Not Reportable 03/04/20 02:59 Dimorphic RBCs Not Reportable 03/04/20 02:59 Polychromasia Not Reportable 03/04/20 02:59 Hypochromasia Few 03/04/20 02:59 Poikilocytosis Not Reportable 03/04/20 02:59 Anisocytosis Few 03/04/20 02:59 Microcytosis Not Reportable 03/04/20 02:59 Macrocytosis Not Reportable 03/04/20 02:59 Spherocytes Not Reportable 03/04/20 02:59 Pappenheimer Bodies Not Reportable 03/04/20 02:59 Sickle Cells Not Reportable 03/04/20 02:59 Target Cells Not Reportable 03/04/20 02:59 Tear Drop Cells Not Reportable 03/04/20 02:59 Ovalocytes Not Reportable 03/04/20 02:59 Helmet Cells Not Reportable 03/04/20 02:59 [place] Bodies Not Reportable 03/04/20 02:59 [place] Rings Not Reportable 03/04/20 02:59 Clover Cells Not Reportable 03/04/20 02:59 Bite Cells Not Reportable 03/04/20 02:59 Crenated Cell Not Reportable 03/04/20 02:59 Elliptocytes Not Reportable 03/04/20 02:59 Acanthocytes (Spur) Not Reportable 03/04/20 02:59 Rouleaux Not Reportable 03/04/20 02:59 Hemoglobin C Crystals Not Reportable 03/04/20 02:59 Schistocytes Not Reportable 03/04/20 02:59 Malaria parasites Not Reportable 03/04/20 02:59 Branden Bodies Not Reportable 03/04/20 02:59 Hem Pathologist Commnt No 03/04/20 02:59 PT 15.9 Sec. (12.2-14.9) H 03/04/20 02:59 INR 1.29 (0.87-1.13) H 03/04/20 02:59 D-Dimer 1415.56 ng/mlDDU (0-234) H 03/03/20 22:00 ABG pH 7.498 (7.320-7.450) H 03/09/20 04:17 POC ABG pCO2 32.7 mmHg (32.0-48.0) 03/09/20 04:17 ABG pCO2 31.0 mm Hg 03/08/20 04:30 POC ABG pO2 125.5 mmHg (83-108) H 03/09/20 04:17 ABG pO2 170.6 mm Hg (80.0-90.0) H 03/08/20 04:30 POC ABG HCO3 24.8 03/09/20 04:17 ABG HCO3 24.3 mmol/L (20.0-26.0) 03/08/20 04:30 ABG O2 Saturation 99.2 % (95.0-99.0) H 03/08/20 04:30 ABG O2 Content 12.4 (0.0-44) 03/08/20 04:30 POC ABG Base Excess 2.0 03/09/20 04:17 ABG Base Excess 1.6 mmol/L (-2.0-3.0) 03/08/20 04:30 ABG Hemoglobin 12 (12.0-17.5) 03/09/20 04:17 ABG Carboxyhemoglobin 1.0 % (0.0-5.0) 03/08/20 04:30 ABG Methemoglobin 0.4 % (0.0-1.5) 03/08/20 04:30 ABG Sodium 139.6 mmol/L (136.0-145.0) 03/09/20 04:17 ABG Potassium 3.4 mmol/L (3.40-4.50) 03/09/20 04:17 ABG Chloride 109.0 mmol/L (98-107) H 03/09/20 04:17 ABG Glucose 103 mg/dL (65-95) H 03/09/20 04:17 Oxyhemoglobin 97.7 % (95.0-99.0) 03/08/20 04:30 FiO2 28 03/09/20 04:17 Sodium 144 mmol/L (137-145) 03/08/20 21:07 Potassium 3.8 mmol/L (3.6-5.0) 03/08/20 21:07 Potassium 3.8 mmol/L (3.6-5.0) D 03/08/20 21:07 Chloride 109.4 mmol/L (98-107) H 03/08/20 21:07 Carbon Dioxide 25 mmol/L (22-30) 03/08/20 21:07 Anion Gap 13 mmol/L 03/08/20 21:07 BUN 6 mg/dL (9-20) L 03/08/20 21:07 Creatinine 0.3 mg/dL (0.8-1.3) L 03/08/20 21:07 Estimated GFR > 60 ml/min 03/08/20 21:07 BUN/Creatinine Ratio 20 % 03/08/20 21:07 Glucose 121 mg/dL (75-100) H 03/08/20 21:07 POC Glucose 103 mg/dL (70-105) 03/09/20 17:25 Lactic Acid 0.80 mmol/L (0.7-2.0) 03/04/20 02:59 Calcium 8.5 mg/dL (8.4-10.2) 03/08/20 21:07 Magnesium 2.00 mg/dL (1.7-2.3) 03/08/20 21:07 Ferritin 522.1 ng/mL (30.0-300.0) H 03/03/20 22:00 Total Bilirubin 0.20 mg/dL (0.1-1.2) 03/08/20 21:07 AST 19 units/L (5-40) 03/08/20 21:07 ALT 22 units/L (7-56) 03/08/20 21:07 Alkaline Phosphatase 86 units/L (35-129) 03/08/20 21:07 Lactate Dehydrogenase 240 units/L (91-180) H 03/03/20 22:00 C-Reactive Protein 17.20 mg/dL (0.00-1.30) H 03/03/20 22:00 Total Protein 6.9 g/dL (6.3-8.2) D 03/08/20 21:07 Albumin 2.8 g/dL (3.9-5) L 03/08/20 21:07 Albumin/Globulin Ratio 0.7 % 03/08/20 21:07 Procalcitonin 0.31 ng/mL (<0.15) 03/03/20 22:00 Arterial Blood Glucose 103 mg/dL (65-95) H 03/09/20 04:17 Arterial Blood Ionized Calcium 4.7 mg/dL (4.6-5.3) 03/09/20 04:17 Urine Color Bing (Yellow) 03/03/20 22:15 Urine Turbidity Clear (Clear) 03/03/20 22:15 Urine pH 5.0 (5.0-7.0) 03/03/20 22:15 Ur Specific [place] 1.031 (1.003-1.030) H 03/03/20 22:15 Urine Protein 30 mg/dl mg/dL (Negative) 03/03/20 22:15 Urine Glucose (UA) Neg mg/dL (Negative) 03/03/20 22:15 Urine Ketones Neg mg/dL (Negative) 03/03/20 22:15 Urine Blood Neg (Negative) 03/03/20 22:15 Urine Nitrite Neg (Negative) 03/03/20 22:15 Urine Bilirubin Neg (Negative) 03/03/20 22:15 Urine Urobilinogen 4.0 mg/dL (<2.0) 03/03/20 22:15 Ur Leukocyte Esterase Tr (Negative) 03/03/20 22:15 Urine WBC (Auto) 8.0 /HPF (0.0-6.0) H 03/03/20 22:15 Urine RBC (Auto) 2.0 /HPF (0.0-6.0) 03/03/20 22:15 U Epithel Cells (Auto) 1.0 /HPF (0-13.0) 03/03/20 22:15 Urine Bacteria (Auto) 1+ /HPF (Negative) 03/03/20 22:15 Hyaline Casts 1 /LPF 03/03/20 22:15 Urine Mucus 1+ /HPF 03/03/20 22:15 Vancomycin Trough 9.0 ug/mL (5.0-20.0) 03/06/20 20:15 Coronavirus (PCR) Negative (Negative) 03/04/20 09:16 Microbiology: Microbiology 03/03/20 21:57 Peripheral/Venous Blood Culture - Final NO GROWTH AFTER 5 DAYS 03/03/20 21:51 Peripheral/Venous Blood Culture - Final NO GROWTH AFTER 5 DAYS Sarah/IV: Voiding Method Condom Catheter IV Catheter Type [Right Upper INT / Saline Lock arm] IV Catheter Type [Left Upper INT / Saline Lock arm] IV Catheter Type [Right Peripheral IV Forearm] Active Medications - Current Medications Current Medications: Generic Name Dose Route Start Last Admin Trade Name Freq PRN Reason Stop Dose Admin Lipase/Protease/Amylase 1 each 03/06/20 14:[address] 10,500 Unit FEEDTUBE PRN PRN For Clogged Feeding Tube Enoxaparin Sodium 40 mg 03/04/20 22:00 03/08/20 22:20 Enoxaparin SUB-Q 40 mg QDAY@2200 KESHAWN Administration Protocol Famotidine 20 mg 03/09/20 11:00 03/09/20 10:42 Pepcid FEEDTUBE 20 mg BID KESHAWN Administration Hydrophilic Ointment 1 applic 03/03/20 22:31 03/06/20 08:19 Vaseline Lip Therapy TP 1 applic Q2HR PRN Administration Dry Lips Vancomycin HCl 1,500 mg/ 530 mls @ 333.333 mls/hr 03/08/20 10:00 03/09/20 10:42 Sodium Chloride IV 03/12/20 23:59 333.333 mls/hr Q12HR KESHAWN Administration Lorazepam 1 mg 03/08/20 23:42 03/08/20 23:47 Ativan IV 1 mg Q4H PRN Administration Agitation Magnesium Hydroxide 30 ml 03/03/20 23:45 Milk Of Magnesia PO Q4H PRN Constipation Morphine Sulfate 2 mg 03/03/20 23:45 03/08/20 22:20 Morphine IV 2 mg Q4H PRN Administration Pain, Moderate (4-6) Multi-Ingred Cream/Lotion/Oil/Oint 1 applic 03/03/20 22:31 Artificial Tears Ophth Oint OU Q4HR PRN Dry Eye(s) Ondansetron HCl 4 mg 03/03/20 23:45 03/05/20 16:12 Zofran IV 4 mg Q8H PRN Administration Nausea And Vomiting Simple Syrup 15 ml 03/06/20 14:54 Simple Syrup FEEDTUBE PRN PRN Hypoglycemia Simple Syrup 30 ml 03/06/20 14:54 Simple Syrup FEEDTUBE PRN PRN Hypoglycemia Sodium Bicarbonate 325 mg 03/06/20 14:54 Sodium Bicarbonate FEEDTUBE PRN PRN For Clogged Feeding Tube Sodium Chloride 10 ml 03/04/20 10:00 03/09/20 10:42 Sodium Chloride Flush Syringe 10 Ml IV 10 ml BID KESHAWN Administration Sodium Chloride 10 ml 03/03/20 23:45 Sodium Chloride Flush Syringe 10 Ml IV PRN PRN LINE FLUSH Nutrition/Malnutrition Assess - Dietary Evaluation Nutrition/Malnutrition Findings: Nutrition Notes Start: 03/04/20 09:15 Freq: Status: Active Protocol: Document 03/09/20 11:42 EN (Rec: 03/09/20 11:46 EN [id number]) Co-Sign 03/09/20 11:42 MK Nutrition Notes Initial or Follow up Reassessment Current Diagnosis Sepsis,Hypertension, Respiratory Failure Other Pertinent Diagnosis Bilat pneu, sacral wound, TBI Current Diet Osmolite 1.5 at 60 ml/hr Labs/Tests Reviewed Pertinent Medications Reviewed Height 6 ft 3 in Weight 63.4 kg [place] Body Weight (kg) 89.09 BMI 17.4 Weight Status Underweight Subjective/Other Information F/u for TF tolerance, vent status and diarrhea. Pt remains on vent. Per RN, pt tolerating TF at goal rate and stool is no longer watery. 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 Yes Is Patient Ambulatory and/or Out of Bed No REE-([facility]-confined to bed) 1816.932 Kcal/Kg value to use for calculation 35 Approximate Energy Requirements Using 2219 kcal/Kg Calculation Used for Recommendations Kcal/kg Additional Notes Pro needs 1.25-2g/k-127g/ day Fluid needs 1ml/kcal Nutrition Intervention Change Diet Order: Continue current TF Nutrition Support: Osmolite 1.5 at 60ml/hr with 175ml water flush q4h. Kcal 2,160 Protein (gm) 90 Fluid (mL) 1,097 Goal #1 TF tolerance Goal #2 TF (at goal rate) to meet 100% energy and pro needs Goal #3 Wt maintenance and/or gain Goal #4 Wound healing Anticipated Discharge Needs: Continue TF Follow-Up By: 03/14/20 Additional Comments F/u for TF tolerance
[2020-03-09] MEDS: ENOXAPARIN 40 MG/0.4 ML INJ SUB-Q SCH (21:24)
--- NOTE | 2020-03-10 03:36 | XRay Report ---
CHEST - 1 VIEW INDICATION: follow up respiratory failure COMPARISON: Yesterday FINDINGS: SUPPORT DEVICES: Stable support device positioning. HEART: Stable cardiomediastinal silhouette. LUNGS/PLEURA: Slightly improved aeration of the lung bases where there is minimal residual patchy ai rspace disease. ADDITIONAL FINDINGS: None. IMPRESSION: Slightly improved exam. Signer Name: Jimbo Leroy MD Signed: 03/10/2020 3:32 AM Workstation Name: [id number]
--- NOTE | 2020-03-10 08:42 | Progress Note ---
Assessment and Plan Assessment and plan: --PUI; COVID-19 test negative on 03/04/2020 --acute on chronic hypoxic respiratory failure; Secondary to underlying bilateral pneumonia Patient has chronic tracheostomy now on ventilatory support Continue nebulizers wean off ventilator as tolerated . Pulmonary critical following. --MRSA pneumonia; respiratory and contact isolation Vancomycin, --Bilateral pneumonia; Continue current antibiotics, follow cultures Ventilatory support, pulmonary and ID following --Severe hypokalemia; resolved Closely monitor lecture lites --Hypernatremia; resolved Gentle hydration supportive care --Sepsis secondary to bilateral pneumonia/UTI Continue current antibiotics, follow cultures, ID following --Severe malnutrition; hypoalbuminemia Supportive care, nutrition consult --DVT prophylaxis;Lovenox --Restrain the patient for agitation --Full CODE STATUS; We will closely monitor the patient and adjust the management as needed The high probability of a clinically significant, sudden or life threatening deterioration of the [respiratory, metabolic and infectious disease] system(s) required my full and direct attention, intervention and personal management. The aggregate critical care time was [32] minutes. This time is in addition to time spent performing reported procedures but includes the following: [x] Data Review and interpretation [x] Patient assessment and monitoring of vital signs [x] Documentation [x] Medication orders and management 03/05/2020 -Patient is admitted for acute on chronic respiratory failure and currently on and requiring mechanical ventilation. Continue with IV antibiotics for UTI and sepsis. COVID-19 test is done and is negative. Schedule Supervisor consulted. Continue with the current management. 03/06/2020 -Patient is admitted for acute on chronic respiratory failure. Patient is on trach and vent. Patient is on IV cefepime and vancomycin per ID recommendation. Pulmonary consulted for vent and trach management. 03/07/2020; continue ventilatory support Wean off vent as tolerated, consults and recommendations noted and appreciated 03/08/2020; We will closely monitor the patient and adjust the management as needed Plan of care reviewed with the patient and his nurse MRSA pneumonia, vancomycin, contact isolation 03/09/2020; patient remains on ventilatory support, on IV antibiotics Wean off vent as tolerated, car sales consultant recommendations noted and appreciated Plan of care reviewed with the patient's nurse and case management 03/10/2020; chest x-ray mild improvement, remains on ventilatory support, wean off ventilator as tolerated Contact isolation for MRSA pneumonia, continue vancomycin History Interval history: I have seen and examined the patient at the bedside Patient's chart and medications reviewed Patient with chronic tracheostomy remains on ventilatory support Patient is alert and awake Vital signs reviewed Hospitalist Physical - Constitutional Vitals: Temp Pulse Resp BP Pulse Ox 98.4 F 72 17 138/76 100 03/10/20 08:00 03/10/20 08:00 03/10/20 08:00 03/10/20 08:00 03/10/20 08:00 General appearance: Present: no acute distress, cachectic, other (Tracheostomy, on ventilatory support) - EENT Eyes: Present: PERRL, EOM intact - Neck Neck: Present: supple, normal ROM - Respiratory Respiratory effort: normal Respiratory: bilateral: diminished, rhonchi, negative: rales, wheezing - Cardiovascular Rhythm: regular Heart Sounds: Present: S1 & S2 - Extremities Extremities: no ischemia, No edema - Abdominal General gastrointestinal: soft, non-tender, non-distended, normal bowel sounds - Integumentary Integumentary: Present: clear, warm - Psychiatric Psychiatric: other (On vent) - Neurologic Neurologic: other (On vent) Results - Labs CBC & Chem 7: 03/10/20 08:10 03/10/20 08:10 Labs: Laboratory Last Values WBC 9.8 K/mm3 (4.5-11.0) 03/07/20 06:03 RBC 3.21 M/mm3 (3.65-5.03) L 03/07/20 06:03 Hgb 9.8 gm/dl (11.8-15.2) L 03/07/20 06:03 Hct 28.6 % (35.5-45.6) L 03/07/20 06:03 MCV 89 fl (84-94) 03/07/20 06:03 MCH 31 pg (28-32) 03/07/20 06:03 MCHC 34 % (32-34) 03/07/20 06:03 RDW 16.6 % (13.2-15.2) H 03/07/20 06:03 Plt Count 188 K/mm3 (140-440) 03/07/20 06:03 Lymph % (Auto) 13.7 % (13.4-35.0) 03/07/20 06:03 Lyman % (Auto) 5.4 % (0.0-7.3) 03/07/20 06:03 Eos % (Auto) 0.5 % (0.0-4.3) 03/07/20 06:03 Baso % (Auto) 0.3 % (0.0-1.8) 03/07/20 06:03 Lymph # (Auto) 1.3 K/mm3 (1.2-5.4) 03/07/20 06:03 Lyman # (Auto) 0.5 K/mm3 (0.0-0.8) 03/07/20 06:03 Eos # (Auto) 0.0 K/mm3 (0.0-0.4) 03/07/20 06:03 Baso # (Auto) 0.0 K/mm3 (0.0-0.1) 03/07/20 06:03 Add Manual Diff Complete 03/04/20 02:59 Total Counted 100 03/04/20 02:59 Seg Neutrophils % 80.1 % (40.0-70.0) H 03/07/20 06:03 Seg Neuts % (Manual) 93.0 % (40.0-70.0) H 03/04/20 02:59 Band Neutrophils % 0 % 03/04/20 02:59 Lymphocytes % (Manual) 5.0 % (13.4-35.0) L 03/04/20 02:59 Reactive Lymphs % (Man) 0 % 03/04/20 02:59 Monocytes % (Manual) 2.0 % (0.0-7.3) 03/04/20 02:59 Eosinophils % (Manual) 0 % (0.0-4.3) 03/04/20 02:59 Basophils % (Manual) 0 % (0.0-1.8) 03/04/20 02:59 Metamyelocytes % 0 % 03/04/20 02:59 Myelocytes % 0 % 03/04/20 02:59 Promyelocytes % 0 % 03/04/20 02:59 Blast Cells % 0 % 03/04/20 02:59 Nucleated RBC % Not Reportable 03/04/20 02:59 Seg Neutrophils # 7.8 K/mm3 (1.8-7.7) H 03/07/20 06:03 Seg Neutrophils # Man 14.1 K/mm3 (1.8-7.7) H 03/04/20 02:59 Band Neutrophils # 0.0 K/mm3 03/04/20 02:59 Lymphocytes # (Manual) 0.8 K/mm3 (1.2-5.4) L 03/04/20 02:59 Abs React Lymphs (Man) 0.0 K/mm3 03/04/20 02:59 Monocytes # (Manual) 0.3 K/mm3 (0.0-0.8) 03/04/20 02:59 Eosinophils # (Manual) 0.0 K/mm3 (0.0-0.4) 03/04/20 02:59 Basophils # (Manual) 0.0 K/mm3 (0.0-0.1) 03/04/20 02:59 Metamyelocytes # 0.0 K/mm3 03/04/20 02:59 Myelocytes # 0.0 K/mm3 03/04/20 02:59 Promyelocytes # 0.0 K/mm3 03/04/20 02:59 Blast Cells # 0.0 K/mm3 03/04/20 02:59 WBC Morphology Not Reportable 03/04/20 02:59 Hypersegmented Neuts Not Reportable 03/04/20 02:59 Hyposegmented Neuts Not Reportable 03/04/20 02:59 Hypogranular Neuts Not Reportable 03/04/20 02:59 Smudge Cells Not Reportable 03/04/20 02:59 Toxic Granulation Not Reportable 03/04/20 02:59 Toxic Vacuolation Not Reportable 03/04/20 02:59 Dohle Bodies Not Reportable 03/04/20 02:59 Pelger-Huet Anomaly Not Reportable 03/04/20 02:59 Mike Rods Not Reportable 03/04/20 02:59 Platelet Estimate Consistent w auto 03/04/20 02:59 Clumped Platelets Not Reportable 03/04/20 02:59 Plt Clumps, EDTA Not Reportable 03/04/20 02:59 Large Platelets Not Reportable 03/04/20 02:59 Giant Platelets Not Reportable 03/04/20 02:59 Platelet Satelliting Not Reportable 03/04/20 02:59 Plt Morphology Comment Not Reportable 03/04/20 02:59 RBC Morphology Not Reportable 03/04/20 02:59 Dimorphic RBCs Not Reportable 03/04/20 02:59 Polychromasia Not Reportable 03/04/20 02:59 Hypochromasia Few 03/04/20 02:59 Poikilocytosis Not Reportable 03/04/20 02:59 Anisocytosis Few 03/04/20 02:59 Microcytosis Not Reportable 03/04/20 02:59 Macrocytosis Not Reportable 03/04/20 02:59 Spherocytes Not Reportable 03/04/20 02:59 Pappenheimer Bodies Not Reportable 03/04/20 02:59 Sickle Cells Not Reportable 03/04/20 02:59 Target Cells Not Reportable 03/04/20 02:59 Tear Drop Cells Not Reportable 03/04/20 02:59 Ovalocytes Not Reportable 03/04/20 02:59 Helmet Cells Not Reportable 03/04/20 02:59 [place] Bodies Not Reportable 03/04/20 02:59 [place] Rings Not Reportable 03/04/20 02:59 Wyatt Cells Not Reportable 03/04/20 02:59 Bite Cells Not Reportable 03/04/20 02:59 Crenated Cell Not Reportable 03/04/20 02:59 Elliptocytes Not Reportable 03/04/20 02:59 Acanthocytes (Spur) Not Reportable 03/04/20 02:59 Rouleaux Not Reportable 03/04/20 02:59 Hemoglobin C Crystals Not Reportable 03/04/20 02:59 Schistocytes Not Reportable 03/04/20 02:59 Malaria parasites Not Reportable 03/04/20 02:59 Branden Bodies Not Reportable 03/04/20 02:59 Hem Pathologist Commnt No 03/04/20 02:59 PT 15.9 Sec. (12.2-14.9) H 03/04/20 02:59 INR 1.29 (0.87-1.13) H 03/04/20 02:59 D-Dimer 1415.56 ng/mlDDU (0-234) H 03/03/20 22:00 ABG pH 7.533 (7.320-7.450) H 03/10/20 04:46 POC ABG pCO2 34.1 mmHg (32.0-48.0) 03/10/20 04:46 ABG pCO2 31.0 mm Hg 03/08/20 04:30 POC ABG pO2 128.2 mmHg (83-108) H 03/10/20 04:46 ABG pO2 170.6 mm Hg (80.0-90.0) H 03/08/20 04:30 POC ABG HCO3 28 03/10/20 04:46 ABG HCO3 24.3 mmol/L (20.0-26.0) 03/08/20 04:30 ABG O2 Saturation 99.2 % (95.0-99.0) H 03/08/20 04:30 ABG O2 Content 12.4 (0.0-44) 03/08/20 04:30 POC ABG Base Excess 5.3 03/10/20 04:46 ABG Base Excess 1.6 mmol/L (-2.0-3.0) 03/08/20 04:30 ABG Hemoglobin 10.0 (12.0-17.5) L 03/10/20 04:46 ABG Carboxyhemoglobin 1.0 % (0.0-5.0) 03/08/20 04:30 ABG Methemoglobin 0.4 % (0.0-1.5) 03/08/20 04:30 ABG Sodium 137.7 mmol/L (136.0-145.0) 03/10/20 04:46 ABG Potassium 3.6 mmol/L (3.40-4.50) 03/10/20 04:46 ABG Chloride 107.0 mmol/L (98-107) 03/10/20 04:46 ABG Glucose 110 mg/dL (65-95) H 03/10/20 04:46 Oxyhemoglobin 97.7 % (95.0-99.0) 03/08/20 04:30 FiO2 28 03/10/20 04:46 Sodium 144 mmol/L (137-145) 03/08/20 21:07 Potassium 3.8 mmol/L (3.6-5.0) 03/08/20 21:07 Potassium 3.8 mmol/L (3.6-5.0) D 03/08/20 21:07 Chloride 109.4 mmol/L (98-107) H 03/08/20 21:07 Carbon Dioxide 25 mmol/L (22-30) 03/08/20 21:07 Anion Gap 13 mmol/L 03/08/20 21:07 BUN 6 mg/dL (9-20) L 03/08/20 21:07 Creatinine 0.3 mg/dL (0.8-1.3) L 03/08/20 21:07 Estimated GFR > 60 ml/min 03/08/20 21:07 BUN/Creatinine Ratio 20 % 03/08/20 21:07 Glucose 121 mg/dL (75-100) H 03/08/20 21:07 POC Glucose 87 mg/dL (70-105) 03/10/20 05:53 Lactic Acid 0.80 mmol/L (0.7-2.0) 03/04/20 02:59 Calcium 8.5 mg/dL (8.4-10.2) 03/08/20 21:07 Magnesium 2.00 mg/dL (1.7-2.3) 03/08/20 21:07 Ferritin 522.1 ng/mL (30.0-300.0) H 03/03/20 22:00 Total Bilirubin 0.20 mg/dL (0.1-1.2) 03/08/20 21:07 AST 19 units/L (5-40) 03/08/20 21:07 ALT 22 units/L (7-56) 03/08/20 21:07 Alkaline Phosphatase 86 units/L (35-129) 03/08/20 21:07 Lactate Dehydrogenase 240 units/L (91-180) H 03/03/20 22:00 C-Reactive Protein 17.20 mg/dL (0.00-1.30) H 03/03/20 22:00 Total Protein 6.9 g/dL (6.3-8.2) D 03/08/20 21:07 Albumin 2.8 g/dL (3.9-5) L 03/08/20 21:07 Albumin/Globulin Ratio 0.7 % 03/08/20 21:07 Procalcitonin 0.31 ng/mL (<0.15) 03/03/20 22:00 Arterial Blood Glucose 110 mg/dL (65-95) H 03/10/20 04:46 Arterial Blood Ionized Calcium 4.6 mg/dL (4.6-5.3) 03/10/20 04:46 Urine Color Bing (Yellow) 03/03/20 22:15 Urine Turbidity Clear (Clear) 03/03/20 22:15 Urine pH 5.0 (5.0-7.0) 03/03/20 22:15 Ur Specific [place] 1.031 (1.003-1.030) H 03/03/20 22:15 Urine Protein 30 mg/dl mg/dL (Negative) 03/03/20 22:15 Urine Glucose (UA) Neg mg/dL (Negative) 03/03/20 22:15 Urine Ketones Neg mg/dL (Negative) 03/03/20 22:15 Urine Blood Neg (Negative) 03/03/20 22:15 Urine Nitrite Neg (Negative) 03/03/20 22:15 Urine Bilirubin Neg (Negative) 03/03/20 22:15 Urine Urobilinogen 4.0 mg/dL (<2.0) 03/03/20 22:15 Ur Leukocyte Esterase Tr (Negative) 03/03/20 22:15 Urine WBC (Auto) 8.0 /HPF (0.0-6.0) H 03/03/20 22:15 Urine RBC (Auto) 2.0 /HPF (0.0-6.0) 03/03/20 22:15 U Epithel Cells (Auto) 1.0 /HPF (0-13.0) 03/03/20 22:15 Urine Bacteria (Auto) 1+ /HPF (Negative) 03/03/20 22:15 Hyaline Casts 1 /LPF 03/03/20 22:15 Urine Mucus 1+ /HPF 03/03/20 22:15 Vancomycin Trough 9.0 ug/mL (5.0-20.0) 03/06/20 20:15 Coronavirus (PCR) Negative (Negative) 03/04/20 09:16 Sarah/IV: Voiding Method Condom Catheter IV Catheter Type [Right Upper INT / Saline Lock arm] IV Catheter Type [Left Upper INT / Saline Lock arm] IV Catheter Type [Right Peripheral IV Forearm] Active Medications - Current Medications Current Medications: Generic Name Dose Route Start Last Admin Trade Name Freq PRN Reason Stop Dose Admin Lipase/Protease/Amylase 1 each 03/06/20 14:54 Pancreирина Cheney 10,500 Unit FEEDTUBE PRN PRN For Clogged Feeding Tube Enoxaparin Sodium 40 mg 03/04/20 22:00 03/09/20 21:24 Enoxaparin SUB-Q 40 mg QDAY@2200 KESHAWN Administration Protocol Famotidine 20 mg 03/09/20 11:00 03/09/20 21:24 Pepcid FEEDTUBE 20 mg BID KESHAWN Administration Hydrophilic Ointment 1 applic 03/03/20 22:31 03/06/20 08:19 Vaseline Lip Therapy TP 1 applic Q2HR PRN Administration Dry Lips Vancomycin HCl 1,500 mg/ 530 mls @ 333.333 mls/hr 03/08/20 10:00 03/09/20 21:39 Sodium Chloride IV 03/12/20 23:59 333.333 mls/hr Q12HR KESHAWN Administration Lorazepam 1 mg 03/08/20 23:42 03/08/20 23:47 Ativan IV 1 mg Q4H PRN Administration Agitation Magnesium Hydroxide 30 ml 03/03/20 23:45 Milk Of Magnesia PO Q4H PRN Constipation Morphine Sulfate 2 mg 03/03/20 23:45 03/08/20 22:20 Morphine IV 2 mg Q4H PRN Administration Pain, Moderate (4-6) Multi-Ingred Cream/Lotion/Oil/Oint 1 applic 03/03/20 22:31 Artificial Tears Ophth Oint OU Q4HR PRN Dry Eye(s) Ondansetron HCl 4 mg 03/03/20 23:45 03/05/20 16:12 Zofran IV 4 mg Q8H PRN Administration Nausea And Vomiting Simple Syrup 15 ml 03/06/20 14:54 Simple Syrup FEEDTUBE PRN PRN Hypoglycemia Simple Syrup 30 ml 03/06/20 14:54 Simple Syrup FEEDTUBE PRN PRN Hypoglycemia Sodium Bicarbonate 325 mg 03/06/20 14:54 Sodium Bicarbonate FEEDTUBE PRN PRN For Clogged Feeding Tube Sodium Chloride 10 ml 03/04/20 10:00 03/09/20 21:25 Sodium Chloride Flush Syringe 10 Ml IV 10 ml BID KESHAWN Administration Sodium Chloride 10 ml 03/03/20 23:45 Sodium Chloride Flush Syringe 10 Ml IV PRN PRN LINE FLUSH Nutrition/Malnutrition Assess - Dietary Evaluation Nutrition/Malnutrition Findings: Nutrition Notes Start: 03/04/20 09:15 Freq: Status: Active Protocol: Document 03/09/20 11:42 EN (Rec: 03/09/20 11:46 EN [id number]) Co-Sign 03/09/20 11:42 MK Nutrition Notes Initial or Follow up Reassessment Current Diagnosis Sepsis,Hypertension, Respiratory Failure Other Pertinent Diagnosis Bilat pneu, sacral wound, TBI Current Diet Osmolite 1.5 at 60 ml/hr Labs/Tests Reviewed Pertinent Medications Reviewed Height 6 ft 3 in Weight 63.4 kg [place] Body Weight (kg) 89.09 BMI 17.4 Weight Status Underweight Subjective/Other Information F/u for TF tolerance, vent status and diarrhea. Pt remains on vent. Per RN, pt tolerating TF at goal rate and stool is no longer watery. Percent of energy/protein needs met: 97%/100% Burn Absent Trauma Absent GI Symptoms None Current % PO Negligible Minimum of two criteria No Reduced Ceramics Instructor Strength Measurably Reduced (severe) #2 Nutrition Diagnosis Increased nutrient needs ( specify in comment below) Comments: Protein Etiology wound healing As Evidenced by Signs and Symptoms Sacral wound #1 Nutrition Diagnosis Inadequate oral intake Diagnosis Progress(for reassessment Continues documentation) Is patient on ventilator? Yes Is Patient Ambulatory and/or Out of Bed No REE-([facility]-confined to bed) 1816.932 Kcal/Kg value to use for calculation 35 Approximate Energy Requirements Using 2219 kcal/Kg Calculation Used for Recommendations Kcal/kg Additional Notes Pro needs 1.25-2g/k-127g/ day Fluid needs 1ml/kcal Nutrition Intervention Change Diet Order: Continue current TF Nutrition Support: Osmolite 1.5 at 60ml/hr with 175ml water flush q4h. Kcal 2,160 Protein (gm) 90 Fluid (mL) 1,097 Goal #1 TF tolerance Goal #2 TF (at goal rate) to meet 100% energy and pro needs Goal #3 Wt maintenance and/or gain Goal #4 Wound healing Anticipated Discharge Needs: Continue TF Follow-Up By: 03/14/20 Additional Comments F/u for TF tolerance
[2020-03-10 09:00] LABS: Hematocrit 28.6 % (35.5-45.6); Hemoglobin 9.5 gm/dl (11.8-15.2)
[2020-03-10 09:21] LABS: Blood Urea Nitrogen 5 mg/dL (9-20); Calcium 8.8 mg/dL (8.4-10.2); Hemolysis Index 28
[2020-03-10 09:25] LABS: BUN/Creatinine Ratio 25
[2020-03-10] MEDS: FAMOTIDINE 20 MG TAB FEEDTUBE SCH ×2 (10:39→21:37)
[2020-03-10] MEDS: VANCOMYCIN 1,500 MG in SODIUM CHLORIDE 0.9% 500 ML 500 ML IV SCH ×2 (10:40→21:36)
--- NOTE | 2020-03-10 11:53 | Progress Note ---
Assessment and Plan Cultures: SARS CoV2 PCR: Negative 03/03/2020 blood culture: In process 03/03/2020 sputum culture: MRSA A/P: 64-year-old male with traumatic brain injury, hypertension, indwelling tracheostomy and PEG tube, senior care resident at [facility] was admitted to the hospital with fever, hypoxia: #Sepsis, leucocytosis likely secondary to bilateral pneumonia. UA without significant pyuria. Patient has indwelling catheter. Urine culture likely to be positive. #MRSA pneumonia #Acute on chronic respiratory failure: With chronic tracheostomy. #Hypernatremia Recs: - Continue vancomycin goal trough 10-20. -Plan 8 days of antibiotics, can de-escalate to Bactrim if improved O2 requirements We will continue to follow, please call with questions. Jhonathan Gray MD [facility] ([facility] O: [phone] F: [phone] Subjective Date of service: 03/10/20 Principal diagnosis: Severe Sepsis; PNA; Ac on ch hypoxemic resp failure; [id number] Interval history: No acute changes at present. Imaging personally viewed: Chest x-ray: Improved. Objective - Exam Narrative Exam: Physical Exam: Constitutional: Mechanically ventilated through tracheostomy Head, Ears, Nose: Normocephalic, atraumatic. External ears, nose normal Eyes: Conjunctivae/corneas clear. No icterus. No ptosis. Neck: Tracheostomy Oral: Tracheostomy Cardiovascular: S1, S2 normal. Respiratory: Good air entry, clear to auscultation bilaterally GI: Soft, non-tender; bowel sounds normal. No peritoneal signs. Musculoskeletal: No pedal edema, no cyanosis. Skin: No rash or abscess Hem/Lymphatic: No palpable cervical or supraclavicular nodes. No lymphangitis Psych: Sedated Neurological: Sedated - Constitutional Vitals: Vital Signs Temp Pulse Resp BP Pulse Ox 98.4 F 86 36 H 130/76 100 03/10/20 08:00 03/10/20 11:38 03/10/20 11:38 03/10/20 11:38 03/10/20 11:38 Temperature -Last 24 Hours Temperature 98.4 F Temperature 98.8 F Temperature 98.6 F Temperature 98.9 F - Labs CBC & Chem 7: 03/10/20 08:10 03/10/20 08:10 Labs: Abnormal lab results 03/10/20 03/10/20 03/10/20 Range/Units 04:46 08:10 08:10 Hgb 9.5 L (11.8-15.2) gm/dl Hct 28.6 L (35.5-45.6) % ABG pH 7.533 H (7.320-7.450) POC ABG pO2 128.2 H (83-108) mmHg ABG Hemoglobin 10.0 L (12.0-17.5) ABG Glucose 110 H (65-95) mg/dL BUN 5 L (9-20) mg/dL Creatinine 0.2 L (0.8-1.3) mg/dL Arterial Blood Glucose 110 H (65-95) mg/dL
[2020-03-10] MEDS: LORazepam 2 MG/ML VIAL IV PRN ×2 (14:09→21:36)
--- NOTE | 2020-03-10 15:09 | Progress Note ---
Assessment and Plan Sepsis, leucocytosis likely secondary to bilateral pneumonia. Acute and chronic hypoxemic respiratory failure, on MVS Chronic tracheostomy Bilateral pneumonia [id number] infection Oropharyngeal dysphagia s/p PEG Chronic indwelling Martinez cather h/o TBI with chronic encephalopathy Hypernatremia - add Brovana & Pulmicort re: COPD - begin empiric steroids re: COPD exacerbation - continue set rate at 12/min - continue contact isolation for MRSA - rest on AC qhs during wean - continue care as below otherwise; - continue Daily SAT and SBT assessment as tolerated - continue accuchecks with glycemic control per SSI (While critically ill target blood glucose of 140-180 mg/dL; avoid hypoglycemia) - sedation prn for target RASS 0 to -1 - continue to wean supplemental oxygen for target O2 sat's > 92% acutely - VAP bundle addressed - continue lung protective strategies - continue bronchodilators with pulmonary hygiene per RT - wean per pulmonary driven protocols otherwise - Free water via PEG tube for hypernatremia - Chronic martinez, catheter care - avoid nephrotoxins, renally dose all medications - continue to avoid benzodiazepine's, reduce the possibility of delirium - complete AB's per ID rec's, follow cultures and de-escalate as indicated (treat empirically for HAP; on Cefepime and Vancomycin) - prn analgesia per CPOT score - Maintenance of sleep-wake cycle, avoid delirium - continue enteral nutritional support at goal rate as tolerated - G.I. & VTE prophylaxis with Famotidine and enoxaparin - PT/OT/ROM exercises - continue mobility protocols for pressure ulcer prophylaxis - Monitor hemodynamics closely - continue other care per attending / other consultants - discharge planning ongoing concurrently .... Re-evaluate in am & prn CONDITION: CRITICAL PROGNOSIS: GUARDED CODE STATUS: FULL CODE The high probability of a clinically significant, sudden or life-threatening deterioration of the [cardiac, respiratory & neurologic] system(s) required my full and direct attention, intervention and personal management. The aggregate critical care time was [34] minutes without overlap. Time includes spent on; [x] Data Review and interpretation [x] Patient assessment and monitoring of vital signs [x] Documentation [x] Medication orders and management Subjective Date of service: 03/10/20 Principal diagnosis: Severe Sepsis; PNA; Ac on ch hypoxemic resp failure; [id number] Interval history: Patient is seen today for: Severe Sepsis; Pneumonia; Acute on chronic hypoxemic respiratory failure; Chronic tracheostomy; [id number] infection; h/o TBI with chronic encephalopathy; Hypernatremia Seen and examined at bedside; 24hour events reviewed; nursing and respiratory care staff consulted; no adverse overnight events reported to me; resting peacefully in bed; extremely agitated when aroused; not tolerating SBT's due to increased work of breathing; No N/V/F/C Objective Vital Signs - 12hr 03/10/20 03/10/20 03/10/20 03:48 03:53 04:00 Temperature 98.8 F Pulse Rate 86 Pulse Rate [ From Monitor] Respiratory 19 Rate Blood Pressure 144/79 O2 Sat by Pulse 100 Oximetry O2 Sat by Pulse 100 Oximetry [ Assessment] 03/10/20 03/10/20 03/10/20 04:35 05:00 06:00 Temperature Pulse Rate 88 73 72 Pulse Rate [ From Monitor] Respiratory 20 22 Rate Blood Pressure 134/83 134/83 121/76 O2 Sat by Pulse 100 100 100 Oximetry O2 Sat by Pulse Oximetry [ Assessment] 03/10/20 03/10/20 03/10/20 07:00 08:00 09:00 Temperature 98.4 F Pulse Rate 72 84 83 Pulse Rate [ 74 From Monitor] Respiratory 21 22 33 H Rate Blood Pressure 138/76 133/81 123/65 O2 Sat by Pulse 100 100 100 Oximetry O2 Sat by Pulse Oximetry [ Assessment] 03/10/20 03/10/20 03/10/20 10:00 11:00 11:38 Temperature Pulse Rate 86 74 86 Pulse Rate [ From Monitor] Respiratory 34 H 29 H 36 H Rate Blood Pressure 130/76 146/77 130/76 O2 Sat by Pulse 100 98 100 Oximetry O2 Sat by Pulse Oximetry [ Assessment] 03/10/20 03/10/20 03/10/20 12:00 13:00 14:00 Temperature 98.0 F Pulse Rate 69 69 82 Pulse Rate [ 70 From Monitor] Respiratory 36 H 20 36 H Rate Blood Pressure 137/81 137/81 126/79 O2 Sat by Pulse 99 100 100 Oximetry O2 Sat by Pulse Oximetry [ Assessment] Constitutional: appears uncomfortable, other (elderly thin male with mildly increased respiratory effort at rest on MVS) Eyes: non-icteric ENT: oropharynx moist, other (+ midline Shiley tracheostomy) Neck: supple, no lymphadenopathy, no JVD Effort: mildly labored Ascultation: Bilateral: diminished breath sounds, rhonchi, other (prolonged exp phase) Percussion: Bilateral: not dull Cardiovascular: regular rate and rhythm, other (S1,S2) Gastrointestinal: normoactive bowel sounds, soft, non-tender, non-distended, other (PEG in place) Integumentary: normal Extremities: no cyanosis, no edema, pulses normal Neurologic: pupils equal and round, CN II-XII normal, unable to assess, other (RUExt weakness) Psychiatric: anxious CBC and BMP: 03/10/20 08:10 03/10/20 08:10 ABG, PT/INR, D-dimer: ABG ABG pH 7.533 (7.320-7.450) H 03/10/20 04:46 POC ABG pCO2 34.1 mmHg (32.0-48.0) 03/10/20 04:46 ABG pCO2 31.0 mm Hg 03/08/20 04:30 POC ABG pO2 128.2 mmHg (83-108) H 03/10/20 04:46 ABG pO2 170.6 mm Hg (80.0-90.0) H 03/08/20 04:30 POC ABG HCO3 28 03/10/20 04:46 ABG O2 Saturation 99.2 % (95.0-99.0) H 03/08/20 04:30 PT/INR, D-dimer PT 15.9 Sec. (12.2-14.9) H 03/04/20 02:59 INR 1.29 (0.87-1.13) H 03/04/20 02:59 D-Dimer 1415.56 ng/mlDDU (0-234) H 03/03/20 22:00 Abnormal lab findings: Abnormal Labs 03/03/20 03/03/20 03/03/20 01:10 21:51 21:51 WBC 15.5 H RBC Hgb Hct 35.3 L RDW 17.9 H Lymph % (Auto) 11.6 L Seg Neutrophils % 83.7 H Seg Neuts % (Manual) Lymphocytes % (Manual) Seg Neutrophils # 13.0 H Seg Neutrophils # Man Lymphocytes # (Manual) PT INR D-Dimer ABG pH POC ABG pCO2 POC ABG pO2 ABG pO2 173.4 H ABG HCO3 26.7 H ABG O2 Saturation 99.1 H ABG Hemoglobin 11.6 L ABG Potassium ABG Chloride ABG Glucose Sodium 151 H Potassium Chloride 114.4 H Carbon Dioxide BUN 29 H Creatinine 0.6 L Glucose 116 H POC Glucose Ferritin Lactate Dehydrogenase C-Reactive Protein Total Protein 8.9 H Albumin 2.8 L Arterial Blood Glucose Ur Specific [place] Urine WBC (Auto) 03/03/20 03/03/20 03/03/20 22:00 22:00 22:00 WBC RBC Hgb Hct RDW Lymph % (Auto) Seg Neutrophils % Seg Neuts % (Manual) Lymphocytes % (Manual) Seg Neutrophils # Seg Neutrophils # Man Lymphocytes # (Manual) PT INR D-Dimer 1415.56 H ABG pH POC ABG pCO2 POC ABG pO2 ABG pO2 ABG HCO3 ABG O2 Saturation ABG Hemoglobin ABG Potassium ABG Chloride ABG Glucose Sodium Potassium Chloride Carbon Dioxide BUN Creatinine Glucose 106 H POC Glucose Ferritin 522.1 H Lactate Dehydrogenase 240 H C-Reactive Protein 17.20 H Total Protein Albumin Arterial Blood Glucose Ur Specific [place] Urine WBC (Auto) 03/03/20 03/04/20 03/04/20 22:15 02:59 02:59 WBC 15.2 H RBC 3.56 L Hgb 10.9 L Hct 33.4 L RDW 17.5 H Lymph % (Auto) Seg Neutrophils % Seg Neuts % (Manual) 93.0 H Lymphocytes % (Manual) 5.0 L Seg Neutrophils # Seg Neutrophils # Man 14.1 H Lymphocytes # (Manual) 0.8 L PT 15.9 H INR 1.29 H D-Dimer ABG pH POC ABG pCO2 POC ABG pO2 ABG pO2 ABG HCO3 ABG O2 Saturation ABG Hemoglobin ABG Potassium ABG Chloride ABG Glucose Sodium Potassium Chloride Carbon Dioxide BUN Creatinine Glucose POC Glucose Ferritin Lactate Dehydrogenase C-Reactive Protein Total Protein Albumin Arterial Blood Glucose Ur Specific [place] 1.031 H Urine WBC (Auto) 8.0 H 03/04/20 03/04/20 03/05/20 02:59 16:16 04:00 WBC RBC Hgb Hct RDW Lymph % (Auto) Seg Neutrophils % Seg Neuts % (Manual) Lymphocytes % (Manual) Seg Neutrophils # Seg Neutrophils # Man Lymphocytes # (Manual) PT INR D-Dimer ABG pH 7.451 H 7.498 H POC ABG pCO2 POC ABG pO2 ABG pO2 102.9 H 122.7 H ABG HCO3 ABG O2 Saturation ABG Hemoglobin 12.7 L 10.2 L ABG Potassium ABG Chloride ABG Glucose Sodium 152 H Potassium Chloride 116.9 H Carbon Dioxide BUN 27 H Creatinine 0.4 L Glucose 127 H POC Glucose Ferritin Lactate Dehydrogenase C-Reactive Protein Total Protein Albumin Arterial Blood Glucose Ur Specific [place] Urine WBC (Auto) 03/05/20 03/05/20 03/05/20 05:32 05:32 18:05 WBC 17.4 H RBC 3.35 L Hgb 10.3 L Hct 31.4 L RDW 17.2 H Lymph % (Auto) 10.9 L Seg Neutrophils % 85.3 H Seg Neuts % (Manual) Lymphocytes % (Manual) Seg Neutrophils # 14.8 H Seg Neutrophils # Man Lymphocytes # (Manual) PT INR D-Dimer ABG pH POC ABG pCO2 POC ABG pO2 ABG pO2 ABG HCO3 ABG O2 Saturation ABG Hemoglobin ABG Potassium ABG Chloride ABG Glucose Sodium 150 H 146 H Potassium 3.4 L Chloride 115.0 H 113.7 H Carbon Dioxide 20 L BUN 29 H Creatinine 0.5 L 0.3 L Glucose POC Glucose Ferritin Lactate Dehydrogenase C-Reactive Protein Total Protein Albumin Arterial Blood Glucose Ur Specific [place] Urine WBC (Auto) 03/06/20 03/06/20 03/06/20 04:16 04:16 05:50 WBC 11.2 H RBC 3.05 L Hgb 9.2 L Hct 28.2 L RDW 16.8 H Lymph % (Auto) Seg Neutrophils % 80.0 H Seg Neuts % (Manual) Lymphocytes % (Manual) Seg Neutrophils # 9.0 H Seg Neutrophils # Man Lymphocytes # (Manual) PT INR D-Dimer ABG pH POC ABG pCO2 POC ABG pO2 ABG pO2 194.8 H ABG HCO3 ABG O2 Saturation 99.3 H ABG Hemoglobin 9.2 L ABG Potassium ABG Chloride ABG Glucose Sodium 146 H Potassium 3.1 L Chloride 111.3 H Carbon Dioxide BUN Creatinine 0.4 L Glucose POC Glucose Ferritin Lactate Dehydrogenase C-Reactive Protein Total Protein Albumin Arterial Blood Glucose Ur Specific [place] Urine WBC (Auto) 03/07/20 03/07/20 03/07/20 02:54 05:47 06:03 WBC RBC 3.21 L Hgb 9.8 L Hct 28.6 L RDW 16.6 H Lymph % (Auto) Seg Neutrophils % 80.1 H Seg Neuts % (Manual) Lymphocytes % (Manual) Seg Neutrophils # 7.8 H Seg Neutrophils # Man Lymphocytes # (Manual) PT INR D-Dimer ABG pH 7.504 H POC ABG pCO2 30.5 L POC ABG pO2 ABG pO2 ABG HCO3 ABG O2 Saturation ABG Hemoglobin 10.4 L ABG Potassium 2.7 L ABG Chloride 109.0 H ABG Glucose Sodium Potassium Chloride Carbon Dioxide BUN Creatinine Glucose POC Glucose 126 H Ferritin Lactate Dehydrogenase C-Reactive Protein Total Protein Albumin Arterial Blood Glucose Ur Specific [place] Urine WBC (Auto) 03/07/20 03/07/20 03/07/20 06:03 17:22 17:25 WBC RBC Hgb Hct RDW Lymph % (Auto) Seg Neutrophils % Seg Neuts % (Manual) Lymphocytes % (Manual) Seg Neutrophils # Seg Neutrophils # Man Lymphocytes # (Manual) PT INR D-Dimer ABG pH POC ABG pCO2 POC ABG pO2 ABG pO2 ABG HCO3 ABG O2 Saturation ABG Hemoglobin ABG Potassium ABG Chloride ABG Glucose Sodium Potassium 2.7 L* Chloride 107.6 H Carbon Dioxide 21 L BUN 8 L Creatinine 0.3 L Glucose 129 H POC Glucose 119 H 125 H Ferritin Lactate Dehydrogenase C-Reactive Protein Total Protein Albumin Arterial Blood Glucose Ur Specific [place] Urine WBC (Auto) 03/07/20 03/08/20 03/08/20 23:30 04:30 16:56 WBC RBC Hgb Hct RDW Lymph % (Auto) Seg Neutrophils % Seg Neuts % (Manual) Lymphocytes % (Manual) Seg Neutrophils # Seg Neutrophils # Man Lymphocytes # (Manual) PT INR D-Dimer ABG pH 7.513 H POC ABG pCO2 POC ABG pO2 ABG pO2 170.6 H ABG HCO3 ABG O2 Saturation 99.2 H ABG Hemoglobin 8.8 L ABG Potassium ABG Chloride ABG Glucose Sodium Potassium Chloride Carbon Dioxide BUN Creatinine Glucose POC Glucose 107 H 108 H Ferritin Lactate Dehydrogenase C-Reactive Protein Total Protein Albumin Arterial Blood Glucose Ur Specific [place] Urine WBC (Auto) 03/08/20 03/09/20 03/09/20 21:07 04:17 11:08 WBC RBC Hgb Hct RDW Lymph % (Auto) Seg Neutrophils % Seg Neuts % (Manual) Lymphocytes % (Manual) Seg Neutrophils # Seg Neutrophils # Man Lymphocytes # (Manual) PT INR D-Dimer ABG pH 7.498 H POC ABG pCO2 POC ABG pO2 125.5 H ABG pO2 ABG HCO3 ABG O2 Saturation ABG Hemoglobin ABG Potassium ABG Chloride 109.0 H ABG Glucose 103 H Sodium Potassium Chloride 109.4 H Carbon Dioxide BUN 6 L Creatinine 0.3 L Glucose 121 H POC Glucose 123 H Ferritin Lactate Dehydrogenase C-Reactive Protein Total Protein Albumin 2.8 L Arterial Blood Glucose 103 H Ur Specific [place] Urine WBC (Auto) 03/10/20 03/10/20 03/10/20 04:46 08:10 08:10 WBC RBC Hgb 9.5 L Hct 28.6 L RDW Lymph % (Auto) Seg Neutrophils % Seg Neuts % (Manual) Lymphocytes % (Manual) Seg Neutrophils # Seg Neutrophils # Man Lymphocytes # (Manual) PT INR D-Dimer ABG pH 7.533 H POC ABG pCO2 POC ABG pO2 128.2 H ABG pO2 ABG HCO3 ABG O2 Saturation ABG Hemoglobin 10.0 L ABG Potassium ABG Chloride ABG Glucose 110 H Sodium Potassium Chloride Carbon Dioxide BUN 5 L Creatinine 0.2 L Glucose POC Glucose Ferritin Lactate Dehydrogenase C-Reactive Protein Total Protein Albumin Arterial Blood Glucose 110 H Ur Specific [place] Urine WBC (Auto) Chest x-ray: image reviewed (COPD; no acute process) Allied health notes reviewed: nursing
[2020-03-10] MEDS: methylPREDNISolone Sod Succinate 125 MG/2 ML INJ IV SCH ×2 (15:58→21:38)
[2020-03-10] MEDS: IPRATROPIUM/ALBUTEROL SULFATE 3 ML AMPUL.NEB IH SCH (16:58)
[2020-03-10] MEDS: BUDESONIDE 0.5 MG/2 ML NEBU IH SCH (20:54)
[2020-03-10] MEDS: ARFORMOTEROL 15 MCG/2 ML NEBU IH SCH (20:55)
[2020-03-10] MEDS: ENOXAPARIN 40 MG/0.4 ML INJ SUB-Q SCH (21:37)
[2020-03-11] MEDS: IPRATROPIUM/ALBUTEROL SULFATE 3 ML AMPUL.NEB IH SCH ×3 (00:28→16:00)
[2020-03-11] MEDS: methylPREDNISolone Sod Succinate 125 MG/2 ML INJ IV SCH ×3 (07:50→21:14)
[2020-03-11] MEDS: ARFORMOTEROL 15 MCG/2 ML NEBU IH SCH ×2 (07:53→20:34)
[2020-03-11] MEDS: BUDESONIDE 0.5 MG/2 ML NEBU IH SCH ×2 (07:53→20:34)
--- NOTE | 2020-03-11 08:55 | Progress Note ---
Assessment and Plan Assessment and plan: --PUI; COVID-19 test negative on 03/04/2020 --acute on chronic hypoxic respiratory failure; Secondary to underlying bilateral pneumonia Patient has chronic tracheostomy now on ventilatory support Continue nebulizers wean off ventilator as tolerated . Pulmonary critical following. --MRSA pneumonia; respiratory and contact isolation Vancomycin, --Bilateral pneumonia; Continue current antibiotics, follow cultures Ventilatory support, pulmonary and ID following --Severe hypokalemia; resolved Closely monitor lecture lites --Hypernatremia; resolved Gentle hydration supportive care --Sepsis secondary to bilateral pneumonia/UTI Continue current antibiotics, follow cultures, ID following --Severe malnutrition; hypoalbuminemia Supportive care, nutrition consult --DVT prophylaxis;Lovenox --Restrain the patient for agitation --Full CODE STATUS; We will closely monitor the patient and adjust the management as needed The high probability of a clinically significant, sudden or life threatening deterioration of the [respiratory, metabolic and infectious disease] system(s) required my full and direct attention, intervention and personal management. The aggregate critical care time was [32] minutes. This time is in addition to time spent performing reported procedures but includes the following: [x] Data Review and interpretation [x] Patient assessment and monitoring of vital signs [x] Documentation [x] Medication orders and management 03/05/2020 -Patient is admitted for acute on chronic respiratory failure and currently on and requiring mechanical ventilation. Continue with IV antibiotics for UTI and sepsis. COVID-19 test is done and is negative. Urban Renewal Manager consulted. Continue with the current management. 03/06/2020 -Patient is admitted for acute on chronic respiratory failure. Patient is on trach and vent. Patient is on IV cefepime and vancomycin per ID recommendation. Pulmonary consulted for vent and trach management. 03/07/2020; continue ventilatory support Wean off vent as tolerated, consults and recommendations noted and appreciated 03/08/2020; We will closely monitor the patient and adjust the management as needed Plan of care reviewed with the patient and his nurse MRSA pneumonia, vancomycin, contact isolation 03/09/2020; patient remains on ventilatory support, on IV antibiotics Wean off vent as tolerated, trousseau consultant recommendations noted and appreciated Plan of care reviewed with the patient's nurse and case management 03/10/2020; chest x-ray mild improvement, remains on ventilatory support, wean off ventilator as tolerated Contact isolation for MRSA pneumonia, continue vancomycin 03/11/2020; patient remains on ventilatory support, MRSA pneumonia on vancomycin for total 8 days and de-escalate to Bactrim DS Per ID recommendations. Contact isolation, restraint for agitation as needed History Interval history: I have seen and examined the patient this morning at the bedside Contact isolation followed due to MRSA pneumonia. Patient tracheostomy on ventilatory support Mild distress, vital signs noted Restraint for agitation Hospitalist Physical - Constitutional Vitals: Temp Pulse Resp BP Pulse Ox 97.8 F 97 H 21 118/82 99 03/11/20 03:34 03/11/20 07:53 03/11/20 07:53 03/11/20 07:53 03/11/20 07:53 General appearance: Present: no acute distress, cachectic, disheveled, other (Tracheostomy, on ventilatory support) - EENT Eyes: Present: PERRL, EOM intact - Neck Neck: Present: supple, normal ROM - Respiratory Respiratory effort: normal Respiratory: bilateral: diminished, negative: rales, rhonchi, wheezing - Cardiovascular Rhythm: regular Heart Sounds: Present: S1 & S2 - Extremities Extremities: no ischemia, No edema - Abdominal General gastrointestinal: soft, non-tender, non-distended, normal bowel sounds Results - Labs CBC & Chem 7: 03/10/20 08:10 03/10/20 08:10 Labs: Laboratory Last Values WBC 9.8 K/mm3 (4.5-11.0) 03/07/20 06:03 RBC 3.21 M/mm3 (3.65-5.03) L 03/07/20 06:03 Hgb 9.5 gm/dl (11.8-15.2) L 03/10/20 08:10 Hct 28.6 % (35.5-45.6) L 03/10/20 08:10 MCV 89 fl (84-94) 03/07/20 06:03 MCH 31 pg (28-32) 03/07/20 06:03 MCHC 34 % (32-34) 03/07/20 06:03 RDW 16.6 % (13.2-15.2) H 03/07/20 06:03 Plt Count 188 K/mm3 (140-440) 03/07/20 06:03 Lymph % (Auto) 13.7 % (13.4-35.0) 03/07/20 06:03 Cherry % (Auto) 5.4 % (0.0-7.3) 03/07/20 06:03 Eos % (Auto) 0.5 % (0.0-4.3) 03/07/20 06:03 Baso % (Auto) 0.3 % (0.0-1.8) 03/07/20 06:03 Lymph # (Auto) 1.3 K/mm3 (1.2-5.4) 03/07/20 06:03 Cherry # (Auto) 0.5 K/mm3 (0.0-0.8) 03/07/20 06:03 Eos # (Auto) 0.0 K/mm3 (0.0-0.4) 03/07/20 06:03 Baso # (Auto) 0.0 K/mm3 (0.0-0.1) 03/07/20 06:03 Add Manual Diff Complete 03/04/20 02:59 Total Counted 100 03/04/20 02:59 Seg Neutrophils % 80.1 % (40.0-70.0) H 03/07/20 06:03 Seg Neuts % (Manual) 93.0 % (40.0-70.0) H 03/04/20 02:59 Band Neutrophils % 0 % 03/04/20 02:59 Lymphocytes % (Manual) 5.0 % (13.4-35.0) L 03/04/20 02:59 Reactive Lymphs % (Man) 0 % 03/04/20 02:59 Monocytes % (Manual) 2.0 % (0.0-7.3) 03/04/20 02:59 Eosinophils % (Manual) 0 % (0.0-4.3) 03/04/20 02:59 Basophils % (Manual) 0 % (0.0-1.8) 03/04/20 02:59 Metamyelocytes % 0 % 03/04/20 02:59 Myelocytes % 0 % 03/04/20 02:59 Promyelocytes % 0 % 03/04/20 02:59 Blast Cells % 0 % 03/04/20 02:59 Nucleated RBC % Not Reportable 03/04/20 02:59 Seg Neutrophils # 7.8 K/mm3 (1.8-7.7) H 03/07/20 06:03 Seg Neutrophils # Man 14.1 K/mm3 (1.8-7.7) H 03/04/20 02:59 Band Neutrophils # 0.0 K/mm3 03/04/20 02:59 Lymphocytes # (Manual) 0.8 K/mm3 (1.2-5.4) L 03/04/20 02:59 Abs React Lymphs (Man) 0.0 K/mm3 03/04/20 02:59 Monocytes # (Manual) 0.3 K/mm3 (0.0-0.8) 03/04/20 02:59 Eosinophils # (Manual) 0.0 K/mm3 (0.0-0.4) 03/04/20 02:59 Basophils # (Manual) 0.0 K/mm3 (0.0-0.1) 03/04/20 02:59 Metamyelocytes # 0.0 K/mm3 03/04/20 02:59 Myelocytes # 0.0 K/mm3 03/04/20 02:59 Promyelocytes # 0.0 K/mm3 03/04/20 02:59 Blast Cells # 0.0 K/mm3 03/04/20 02:59 WBC Morphology Not Reportable 03/04/20 02:59 Hypersegmented Neuts Not Reportable 03/04/20 02:59 Hyposegmented Neuts Not Reportable 03/04/20 02:59 Hypogranular Neuts Not Reportable 03/04/20 02:59 Smudge Cells Not Reportable 03/04/20 02:59 Toxic Granulation Not Reportable 03/04/20 02:59 Toxic Vacuolation Not Reportable 03/04/20 02:59 Dohle Bodies Not Reportable 03/04/20 02:59 Pelger-Huet Anomaly Not Reportable 03/04/20 02:59 Mike Rods Not Reportable 03/04/20 02:59 Platelet Estimate Consistent w auto 03/04/20 02:59 Clumped Platelets Not Reportable 03/04/20 02:59 Plt Clumps, EDTA Not Reportable 03/04/20 02:59 Large Platelets Not Reportable 03/04/20 02:59 Giant Platelets Not Reportable 03/04/20 02:59 Platelet Satelliting Not Reportable 03/04/20 02:59 Plt Morphology Comment Not Reportable 03/04/20 02:59 RBC Morphology Not Reportable 03/04/20 02:59 Dimorphic RBCs Not Reportable 03/04/20 02:59 Polychromasia Not Reportable 03/04/20 02:59 Hypochromasia Few 03/04/20 02:59 Poikilocytosis Not Reportable 03/04/20 02:59 Anisocytosis Few 03/04/20 02:59 Microcytosis Not Reportable 03/04/20 02:59 Macrocytosis Not Reportable 03/04/20 02:59 Spherocytes Not Reportable 03/04/20 02:59 Pappenheimer Bodies Not Reportable 03/04/20 02:59 Sickle Cells Not Reportable 03/04/20 02:59 Target Cells Not Reportable 03/04/20 02:59 Tear Drop Cells Not Reportable 03/04/20 02:59 Ovalocytes Not Reportable 03/04/20 02:59 Helmet Cells Not Reportable 03/04/20 02:59 [place] Bodies Not Reportable 03/04/20 02:59 [place] Rings Not Reportable 03/04/20 02:59 Marcos Cells Not Reportable 03/04/20 02:59 Bite Cells Not Reportable 03/04/20 02:59 Crenated Cell Not Reportable 03/04/20 02:59 Elliptocytes Not Reportable 03/04/20 02:59 Acanthocytes (Spur) Not Reportable 03/04/20 02:59 Rouleaux Not Reportable 03/04/20 02:59 Hemoglobin C Crystals Not Reportable 03/04/20 02:59 Schistocytes Not Reportable 03/04/20 02:59 Malaria parasites Not Reportable 03/04/20 02:59 Branden Bodies Not Reportable 03/04/20 02:59 Hem Pathologist Commnt No 03/04/20 02:59 PT 15.9 Sec. (12.2-14.9) H 03/04/20 02:59 INR 1.29 (0.87-1.13) H 03/04/20 02:59 D-Dimer 1415.56 ng/mlDDU (0-234) H 03/03/20 22:00 ABG pH 7.533 (7.320-7.450) H 03/10/20 04:46 POC ABG pCO2 34.1 mmHg (32.0-48.0) 03/10/20 04:46 ABG pCO2 31.0 mm Hg 03/08/20 04:30 POC ABG pO2 128.2 mmHg (83-108) H 03/10/20 04:46 ABG pO2 170.6 mm Hg (80.0-90.0) H 03/08/20 04:30 POC ABG HCO3 28 03/10/20 04:46 ABG HCO3 24.3 mmol/L (20.0-26.0) 03/08/20 04:30 ABG O2 Saturation 99.2 % (95.0-99.0) H 03/08/20 04:30 ABG O2 Content 12.4 (0.0-44) 03/08/20 04:30 POC ABG Base Excess 5.3 03/10/20 04:46 ABG Base Excess 1.6 mmol/L (-2.0-3.0) 03/08/20 04:30 ABG Hemoglobin 10.0 (12.0-17.5) L 03/10/20 04:46 ABG Carboxyhemoglobin 1.0 % (0.0-5.0) 03/08/20 04:30 ABG Methemoglobin 0.4 % (0.0-1.5) 03/08/20 04:30 ABG Sodium 137.7 mmol/L (136.0-145.0) 03/10/20 04:46 ABG Potassium 3.6 mmol/L (3.40-4.50) 03/10/20 04:46 ABG Chloride 107.0 mmol/L (98-107) 03/10/20 04:46 ABG Glucose 110 mg/dL (65-95) H 03/10/20 04:46 Oxyhemoglobin 97.7 % (95.0-99.0) 03/08/20 04:30 FiO2 28 03/10/20 04:46 Sodium 140 mmol/L (137-145) 03/10/20 08:10 Potassium 3.7 mmol/L (3.6-5.0) 03/10/20 08:10 Chloride 106.8 mmol/L (98-107) 03/10/20 08:10 Carbon Dioxide 27 mmol/L (22-30) 03/10/20 08:10 Anion Gap 10 mmol/L 03/10/20 08:10 BUN 5 mg/dL (9-20) L 03/10/20 08:10 Creatinine 0.2 mg/dL (0.8-1.3) L 03/10/20 08:10 Estimated GFR > 60 ml/min 03/10/20 08:10 BUN/Creatinine Ratio 25 % 03/10/20 08:10 Glucose 84 mg/dL (75-100) 03/10/20 08:10 POC Glucose 217 mg/dL (70-105) H 03/11/20 05:07 Lactic Acid 0.80 mmol/L (0.7-2.0) 03/04/20 02:59 Calcium 8.8 mg/dL (8.4-10.2) 03/10/20 08:10 Magnesium 2.00 mg/dL (1.7-2.3) 03/08/20 21:07 Ferritin 522.1 ng/mL (30.0-300.0) H 03/03/20 22:00 Total Bilirubin 0.20 mg/dL (0.1-1.2) 03/08/20 21:07 AST 19 units/L (5-40) 03/08/20 21:07 ALT 22 units/L (7-56) 03/08/20 21:07 Alkaline Phosphatase 86 units/L (35-129) 03/08/20 21:07 Lactate Dehydrogenase 240 units/L (91-180) H 03/03/20 22:00 C-Reactive Protein 17.20 mg/dL (0.00-1.30) H 03/03/20 22:00 Total Protein 6.9 g/dL (6.3-8.2) D 03/08/20 21:07 Albumin 2.8 g/dL (3.9-5) L 03/08/20 21:07 Albumin/Globulin Ratio 0.7 % 03/08/20 21:07 Procalcitonin 0.31 ng/mL (<0.15) 03/03/20 22:00 Arterial Blood Glucose 110 mg/dL (65-95) H 03/10/20 04:46 Arterial Blood Ionized Calcium 4.6 mg/dL (4.6-5.3) 03/10/20 04:46 Urine Color Bing (Yellow) 03/03/20 22:15 Urine Turbidity Clear (Clear) 03/03/20 22:15 Urine pH 5.0 (5.0-7.0) 03/03/20 22:15 Ur Specific [place] 1.031 (1.003-1.030) H 03/03/20 22:15 Urine Protein 30 mg/dl mg/dL (Negative) 03/03/20 22:15 Urine Glucose (UA) Neg mg/dL (Negative) 03/03/20 22:15 Urine Ketones Neg mg/dL (Negative) 03/03/20 22:15 Urine Blood Neg (Negative) 03/03/20 22:15 Urine Nitrite Neg (Negative) 03/03/20 22:15 Urine Bilirubin Neg (Negative) 03/03/20 22:15 Urine Urobilinogen 4.0 mg/dL (<2.0) 03/03/20 22:15 Ur Leukocyte Esterase Tr (Negative) 03/03/20 22:15 Urine WBC (Auto) 8.0 /HPF (0.0-6.0) H 03/03/20 22:15 Urine RBC (Auto) 2.0 /HPF (0.0-6.0) 03/03/20 22:15 U Epithel Cells (Auto) 1.0 /HPF (0-13.0) 03/03/20 22:15 Urine Bacteria (Auto) 1+ /HPF (Negative) 03/03/20 22:15 Hyaline Casts 1 /LPF 03/03/20 22:15 Urine Mucus 1+ /HPF 03/03/20 22:15 Vancomycin Trough 9.0 ug/mL (5.0-20.0) 03/06/20 20:15 Coronavirus (PCR) Negative (Negative) 03/04/20 09:16 Sarah/IV: Voiding Method Condom Catheter IV Catheter Type [Right Upper INT / Saline Lock arm] IV Catheter Type [Left Upper INT / Saline Lock arm] IV Catheter Type [Right Peripheral IV Forearm] Active Medications - Current Medications Current Medications: Generic Name Dose Route Start Last Admin Trade Name Freq PRN Reason Stop Dose Admin Albuterol/Ipratropium 1 ampul 03/10/20 16:00 03/11/20 07:53 Duoneb *Not For Prn Use* IH 1 ampul Q8HRT KESHAWN Administration Lipase/Protease/Amylase 1 each 03/06/20 14:54 Pancreaze 10,500 Unit FEEDTUBE PRN PRN For Clogged Feeding Tube Arformoterol Tartrate 15 mcg 03/10/20 20:00 03/11/20 07:53 Brovana Nebu IH 15 mcg Q12HRT KESHAWN Administration Budesonide 0.5 mg 03/10/20 20:00 03/11/20 07:53 Pulmicort IH 0.5 mg Q12HRT KESHAWN Administration Enoxaparin Sodium 40 mg 03/04/20 22:00 03/10/20 21:37 Enoxaparin SUB-Q 40 mg QDAY@2200 KESHAWN Administration Protocol Famotidine 20 mg 03/09/20 11:00 03/10/20 21:37 Pepcid FEEDTUBE 20 mg BID [facility] Administration Hydrophilic Ointment 1 applic 03/03/20 22:31 03/06/20 08:19 Vaseline Lip Therapy TP 1 applic Q2HR PRN Administration Dry Lips Vancomycin HCl 1,500 mg/ 530 mls @ 333.333 mls/hr 03/08/20 10:00 03/10/20 21:36 Sodium Chloride IV 03/12/20 23:59 333.333 mls/hr Q12HR KESHAWN Administration Lorazepam 1 mg 03/08/20 23:42 03/10/20 21:36 Ativan IV 1 mg Q4H PRN Administration Agitation Magnesium Hydroxide 30 ml 03/03/20 23:45 Milk Of Magnesia PO Q4H PRN Constipation Methylprednisolone Sodium Succinate 60 mg 03/10/20 16:00 03/11/20 07:50 Solu-Medrol IV 60 mg Q8HR [facility] Administration Morphine Sulfate 2 mg 03/03/20 23:45 03/08/20 22:20 Morphine IV 2 mg Q4H PRN Administration Pain, Moderate (4-6) Multi-Ingred Cream/Lotion/Oil/Oint 1 applic 03/03/20 22:31 Artificial Tears Ophth Oint OU Q4HR PRN Dry Eye(s) Ondansetron HCl 4 mg 03/03/20 23:45 03/05/20 16:12 Zofran IV 4 mg Q8H PRN Administration Nausea And Vomiting Simple Syrup 15 ml 03/06/20 14:54 Simple Syrup FEEDTUBE PRN PRN Hypoglycemia Simple Syrup 30 ml 03/06/20 14:54 Simple Syrup FEEDTUBE PRN PRN Hypoglycemia Sodium Bicarbonate 325 mg 03/06/20 14:54 Sodium Bicarbonate FEEDTUBE PRN PRN For Clogged Feeding Tube Sodium Chloride 10 ml 03/04/20 10:00 03/10/20 21:38 Sodium Chloride Flush Syringe 10 Ml IV 10 ml BID KESHAWN Administration Sodium Chloride 10 ml 03/03/20 23:45 Sodium Chloride Flush Syringe 10 Ml IV PRN PRN LINE FLUSH Nutrition/Malnutrition Assess - Dietary Evaluation Nutrition/Malnutrition Findings: Nutrition Notes Start: 03/04/20 09:15 Freq: Status: Active Protocol: Document 03/09/20 11:42 EN (Rec: 03/09/20 11:46 EN [id number]) Co-Sign 03/09/20 11:42 MK Nutrition Notes Initial or Follow up Reassessment Current Diagnosis Sepsis,Hypertension, Respiratory Failure Other Pertinent Diagnosis Bilat pneu, sacral wound, TBI Current Diet Osmolite 1.5 at 60 ml/hr Labs/Tests Reviewed Pertinent Medications Reviewed Height 6 ft 3 in Weight 63.4 kg [place] Body Weight (kg) 89.09 BMI 17.4 Weight Status Underweight Subjective/Other Information F/u for TF tolerance, vent status and diarrhea. Pt remains on vent. Per RN, pt tolerating TF at goal rate and stool is no longer watery. Percent of energy/protein needs met: 97%/100% Burn Absent Trauma Absent GI Symptoms None Current % PO Negligible Minimum of two criteria No Reduced Interior Design Coordinator Strength Measurably Reduced (severe) #2 Nutrition Diagnosis Increased nutrient needs ( specify in comment below) Comments: Protein Etiology wound healing As Evidenced by Signs and Symptoms Sacral wound #1 Nutrition Diagnosis Inadequate oral intake Diagnosis Progress(for reassessment Continues documentation) Is patient on ventilator? Yes Is Patient Ambulatory and/or Out of Bed No REE-([facility] [place]-confined to bed) 1816.932 Kcal/Kg value to use for calculation 35 Approximate Energy Requirements Using 2219 kcal/Kg Calculation Used for Recommendations Kcal/kg Additional Notes Pro needs 1.25-2g/k-127g/ day Fluid needs 1ml/kcal Nutrition Intervention Change Diet Order: Continue current TF Nutrition Support: Osmolite 1.5 at 60ml/hr with 175ml water flush q4h. Kcal 2,160 Protein (gm) 90 Fluid (mL) 1,097 Goal #1 TF tolerance Goal #2 TF (at goal rate) to meet 100% energy and pro needs Goal #3 Wt maintenance and/or gain Goal #4 Wound healing Anticipated Discharge Needs: Continue TF Follow-Up By: 03/14/20 Additional Comments F/u for TF tolerance
[2020-03-11] MEDS: VANCOMYCIN 1,500 MG in SODIUM CHLORIDE 0.9% 500 ML 500 ML IV SCH ×2 (11:05→21:22)
[2020-03-11] MEDS: LORazepam 2 MG/ML VIAL IV PRN ×2 (11:05→22:06)
[2020-03-11] MEDS: SIMETHICONE 80 MG CHEW TAB PO PRN (11:06)
[2020-03-11] MEDS: FAMOTIDINE 20 MG TAB FEEDTUBE SCH ×2 (11:06→21:14)
--- NOTE | 2020-03-11 15:29 | Progress Note ---
Assessment and Plan Sepsis, leucocytosis likely secondary to bilateral pneumonia. Acute and chronic hypoxemic respiratory failure, on MVS Chronic tracheostomy Bilateral pneumonia [id number] infection Oropharyngeal dysphagia s/p PEG Chronic indwelling Martinez cather h/o TBI with chronic encephalopathy Hypernatremia - increased p-supp to 20 cm H2O - continue Brovana & Pulmicort re: COPD - continue empiric steroids re: COPD exacerbation - continue set rate at 12/min - continue contact isolation for MRSA - rest on AC qhs during wean - continue care as below otherwise; - continue Daily SAT and SBT assessment as tolerated - continue accuchecks with glycemic control per SSI (While critically ill target blood glucose of 140-180 mg/dL; avoid hypoglycemia) - sedation prn for target RASS 0 to -1 - continue to wean supplemental oxygen for target O2 sat's > 92% acutely - VAP bundle addressed - continue lung protective strategies - continue bronchodilators with pulmonary hygiene per RT - wean per pulmonary driven protocols otherwise - Free water via PEG tube for hypernatremia - Chronic martinez, catheter care - avoid nephrotoxins, renally dose all medications - continue to avoid benzodiazepine's, reduce the possibility of delirium - complete AB's per ID rec's, follow cultures and de-escalate as indicated (treat empirically for HAP; on Cefepime and Vancomycin) - prn analgesia per CPOT score - Maintenance of sleep-wake cycle, avoid delirium - continue enteral nutritional support at goal rate as tolerated - G.I. & VTE prophylaxis with Famotidine and enoxaparin - PT/OT/ROM exercises - continue mobility protocols for pressure ulcer prophylaxis - Monitor hemodynamics closely - continue other care per attending / other consultants - discharge planning ongoing concurrently .... Re-evaluate in am & prn CONDITION: CRITICAL PROGNOSIS: GUARDED CODE STATUS: FULL CODE The high probability of a clinically significant, sudden or life-threatening deterioration of the [cardiac, respiratory & neurologic] system(s) required my full and direct attention, intervention and personal management. The aggregate critical care time was [33] minutes without overlap. Time includes spent on; [x] Data Review and interpretation [x] Patient assessment and monitoring of vital signs [x] Documentation [x] Medication orders and management Subjective Date of service: 03/11/20 Principal diagnosis: Severe Sepsis; PNA; Ac on ch hypoxemic resp failure; [id number] Interval history: Patient is seen today for: Severe Sepsis; Pneumonia; Acute on chronic hypoxemic respiratory failure; Chronic tracheostomy; [id number] infection; h/o TBI with chronic encephalopathy; Hypernatremia Seen and examined at bedside; 24hour events reviewed; nursing and respiratory care staff consulted; no adverse overnight events reported to me; resting peacefully in bed; weaning tenuously; failed SBT's today at p-supp of 15; remains confused but not agitated today Objective Vital Signs - 12hr 03/11/20 03/11/20 03/11/20 03:34 03:36 04:00 Temperature 97.8 F Pulse Rate 89 77 Pulse Rate [ Anterior Bilateral Throughout] Pulse Rate [ 77 From Monitor] Respiratory 21 Rate Respiratory Rate [Anterior Bilateral Throughout] Blood Pressure 103/73 105/71 O2 Sat by Pulse 99 99 Oximetry O2 Sat by Pulse 99 Oximetry [ Assessment] 03/11/20 03/11/20 03/11/20 05:01 06:00 07:01 Temperature Pulse Rate 72 91 H 105 H Pulse Rate [ Anterior Bilateral Throughout] Pulse Rate [ From Monitor] Respiratory 23 27 H 34 H Rate Respiratory Rate [Anterior Bilateral Throughout] Blood Pressure 109/64 119/79 118/82 O2 Sat by Pulse 100 97 96 Oximetry O2 Sat by Pulse Oximetry [ Assessment] 03/11/20 03/11/20 03/11/20 07:53 08:00 08:30 Temperature Pulse Rate 98 H 100 H Pulse Rate [ 97 H Anterior Bilateral Throughout] Pulse Rate [ 97 H From Monitor] Respiratory 39 H 74 H Rate Respiratory 21 Rate [Anterior Bilateral Throughout] Blood Pressure 118/82 118/82 O2 Sat by Pulse 100 98 Oximetry O2 Sat by Pulse 99 Oximetry [ Assessment] 03/11/20 03/11/20 03/11/20 09:00 10:01 11:01 Temperature Pulse Rate 111 H 125 H 126 H Pulse Rate [ Anterior Bilateral Throughout] Pulse Rate [ From Monitor] Respiratory 28 H 14 35 H Rate Respiratory Rate [Anterior Bilateral Throughout] Blood Pressure 133/87 134/86 135/95 O2 Sat by Pulse 98 99 99 Oximetry O2 Sat by Pulse Oximetry [ Assessment] 03/11/20 03/11/20 11:40 12:00 Temperature Pulse Rate 92 H 105 H Pulse Rate [ Anterior Bilateral Throughout] Pulse Rate [ 105 H From Monitor] Respiratory 15 Rate Respiratory Rate [Anterior Bilateral Throughout] Blood Pressure 120/73 123/80 O2 Sat by Pulse 100 100 Oximetry O2 Sat by Pulse Oximetry [ Assessment] Constitutional: no acute distress, other (elderly thin male with mildly increased respiratory effort at rest on MVS) Eyes: non-icteric ENT: oropharynx moist, other (+ midline Shiley tracheostomy) Neck: supple, no lymphadenopathy, no JVD Effort: mildly labored Ascultation: Bilateral: diminished breath sounds, rhonchi, other (prolonged exp phase) Percussion: Bilateral: not dull Cardiovascular: regular rate and rhythm, other (S1,S2) Gastrointestinal: normoactive bowel sounds, soft, non-tender, non-distended, other (PEG in place) Integumentary: normal Extremities: no cyanosis, no edema, pulses normal Neurologic: pupils equal and round, CN II-XII normal, unable to assess, other (RUExt weakness) Psychiatric: mood appropriate, affect normal CBC and BMP: 03/10/20 08:10 03/10/20 08:10 ABG, PT/INR, D-dimer: ABG ABG pH 7.533 (7.320-7.450) H 03/10/20 04:46 POC ABG pCO2 34.1 mmHg (32.0-48.0) 03/10/20 04:46 ABG pCO2 31.0 mm Hg 03/08/20 04:30 POC ABG pO2 128.2 mmHg (83-108) H 03/10/20 04:46 ABG pO2 170.6 mm Hg (80.0-90.0) H 03/08/20 04:30 POC ABG HCO3 28 03/10/20 04:46 ABG O2 Saturation 99.2 % (95.0-99.0) H 03/08/20 04:30 PT/INR, D-dimer PT 15.9 Sec. (12.2-14.9) H 03/04/20 02:59 INR 1.29 (0.87-1.13) H 03/04/20 02:59 D-Dimer 1415.56 ng/mlDDU (0-234) H 03/03/20 22:00 Abnormal lab findings: Abnormal Labs 03/03/20 03/03/20 03/03/20 01:10 21:51 21:51 WBC 15.5 H RBC Hgb Hct 35.3 L RDW 17.9 H Lymph % (Auto) 11.6 L Seg Neutrophils % 83.7 H Seg Neuts % (Manual) Lymphocytes % (Manual) Seg Neutrophils # 13.0 H Seg Neutrophils # Man Lymphocytes # (Manual) PT INR D-Dimer ABG pH POC ABG pCO2 POC ABG pO2 ABG pO2 173.4 H ABG HCO3 26.7 H ABG O2 Saturation 99.1 H ABG Hemoglobin 11.6 L ABG Potassium ABG Chloride ABG Glucose Sodium 151 H Potassium Chloride 114.4 H Carbon Dioxide BUN 29 H Creatinine 0.6 L Glucose 116 H POC Glucose Ferritin Lactate Dehydrogenase C-Reactive Protein Total Protein 8.9 H Albumin 2.8 L Arterial Blood Glucose Ur Specific Tiona Urine WBC (Auto) 03/03/20 03/03/20 03/03/20 22:00 22:00 22:00 WBC RBC Hgb Hct RDW Lymph % (Auto) Seg Neutrophils % Seg Neuts % (Manual) Lymphocytes % (Manual) Seg Neutrophils # Seg Neutrophils # Man Lymphocytes # (Manual) PT INR D-Dimer 1415.56 H ABG pH POC ABG pCO2 POC ABG pO2 ABG pO2 ABG HCO3 ABG O2 Saturation ABG Hemoglobin ABG Potassium ABG Chloride ABG Glucose Sodium Potassium Chloride Carbon Dioxide BUN Creatinine Glucose 106 H POC Glucose Ferritin 522.1 H Lactate Dehydrogenase 240 H C-Reactive Protein 17.20 H Total Protein Albumin Arterial Blood Glucose Ur Specific Tiona Urine WBC (Auto) 03/03/20 03/04/20 03/04/20 22:15 02:59 02:59 WBC 15.2 H RBC 3.56 L Hgb 10.9 L Hct 33.4 L RDW 17.5 H Lymph % (Auto) Seg Neutrophils % Seg Neuts % (Manual) 93.0 H Lymphocytes % (Manual) 5.0 L Seg Neutrophils # Seg Neutrophils # Man 14.1 H Lymphocytes # (Manual) 0.8 L PT 15.9 H INR 1.29 H D-Dimer ABG pH POC ABG pCO2 POC ABG pO2 ABG pO2 ABG HCO3 ABG O2 Saturation ABG Hemoglobin ABG Potassium ABG Chloride ABG Glucose Sodium Potassium Chloride Carbon Dioxide BUN Creatinine Glucose POC Glucose Ferritin Lactate Dehydrogenase C-Reactive Protein Total Protein Albumin Arterial Blood Glucose Ur Specific Tiona 1.031 H Urine WBC (Auto) 8.0 H 03/04/20 03/04/20 03/05/20 02:59 16:16 04:00 WBC RBC Hgb Hct RDW Lymph % (Auto) Seg Neutrophils % Seg Neuts % (Manual) Lymphocytes % (Manual) Seg Neutrophils # Seg Neutrophils # Man Lymphocytes # (Manual) PT INR D-Dimer ABG pH 7.451 H 7.498 H POC ABG pCO2 POC ABG pO2 ABG pO2 102.9 H 122.7 H ABG HCO3 ABG O2 Saturation ABG Hemoglobin 12.7 L 10.2 L ABG Potassium ABG Chloride ABG Glucose Sodium 152 H Potassium Chloride 116.9 H Carbon Dioxide BUN 27 H Creatinine 0.4 L Glucose 127 H POC Glucose Ferritin Lactate Dehydrogenase C-Reactive Protein Total Protein Albumin Arterial Blood Glucose Ur Specific Tiona Urine WBC (Auto) 03/05/20 03/05/20 03/05/20 05:32 05:32 18:05 WBC 17.4 H RBC 3.35 L Hgb 10.3 L Hct 31.4 L RDW 17.2 H Lymph % (Auto) 10.9 L Seg Neutrophils % 85.3 H Seg Neuts % (Manual) Lymphocytes % (Manual) Seg Neutrophils # 14.8 H Seg Neutrophils # Man Lymphocytes # (Manual) PT INR D-Dimer ABG pH POC ABG pCO2 POC ABG pO2 ABG pO2 ABG HCO3 ABG O2 Saturation ABG Hemoglobin ABG Potassium ABG Chloride ABG Glucose Sodium 150 H 146 H Potassium 3.4 L Chloride 115.0 H 113.7 H Carbon Dioxide 20 L BUN 29 H Creatinine 0.5 L 0.3 L Glucose POC Glucose Ferritin Lactate Dehydrogenase C-Reactive Protein Total Protein Albumin Arterial Blood Glucose Ur Specific Tiona Urine WBC (Auto) 03/06/20 03/06/20 03/06/20 04:16 04:16 05:50 WBC 11.2 H RBC 3.05 L Hgb 9.2 L Hct 28.2 L RDW 16.8 H Lymph % (Auto) Seg Neutrophils % 80.0 H Seg Neuts % (Manual) Lymphocytes % (Manual) Seg Neutrophils # 9.0 H Seg Neutrophils # Man Lymphocytes # (Manual) PT INR D-Dimer ABG pH POC ABG pCO2 POC ABG pO2 ABG pO2 194.8 H ABG HCO3 ABG O2 Saturation 99.3 H ABG Hemoglobin 9.2 L ABG Potassium ABG Chloride ABG Glucose Sodium 146 H Potassium 3.1 L Chloride 111.3 H Carbon Dioxide BUN Creatinine 0.4 L Glucose POC Glucose Ferritin Lactate Dehydrogenase C-Reactive Protein Total Protein Albumin Arterial Blood Glucose Ur Specific Tiona Urine WBC (Auto) 03/07/20 03/07/20 03/07/20 02:54 05:47 06:03 WBC RBC 3.21 L Hgb 9.8 L Hct 28.6 L RDW 16.6 H Lymph % (Auto) Seg Neutrophils % 80.1 H Seg Neuts % (Manual) Lymphocytes % (Manual) Seg Neutrophils # 7.8 H Seg Neutrophils # Man Lymphocytes # (Manual) PT INR D-Dimer ABG pH 7.504 H POC ABG pCO2 30.5 L POC ABG pO2 ABG pO2 ABG HCO3 ABG O2 Saturation ABG Hemoglobin 10.4 L ABG Potassium 2.7 L ABG Chloride 109.0 H ABG Glucose Sodium Potassium Chloride Carbon Dioxide BUN Creatinine Glucose POC Glucose 126 H Ferritin Lactate Dehydrogenase C-Reactive Protein Total Protein Albumin Arterial Blood Glucose Ur Specific Tiona Urine WBC (Auto) 03/07/20 03/07/20 03/07/20 06:03 17:22 17:25 WBC RBC Hgb Hct RDW Lymph % (Auto) Seg Neutrophils % Seg Neuts % (Manual) Lymphocytes % (Manual) Seg Neutrophils # Seg Neutrophils # Man Lymphocytes # (Manual) PT INR D-Dimer ABG pH POC ABG pCO2 POC ABG pO2 ABG pO2 ABG HCO3 ABG O2 Saturation ABG Hemoglobin ABG Potassium ABG Chloride ABG Glucose Sodium Potassium 2.7 L* Chloride 107.6 H Carbon Dioxide 21 L BUN 8 L Creatinine 0.3 L Glucose 129 H POC Glucose 119 H 125 H Ferritin Lactate Dehydrogenase C-Reactive Protein Total Protein Albumin Arterial Blood Glucose Ur Specific Tiona Urine WBC (Auto) 03/07/20 03/08/20 03/08/20 23:30 04:30 16:56 WBC RBC Hgb Hct RDW Lymph % (Auto) Seg Neutrophils % Seg Neuts % (Manual) Lymphocytes % (Manual) Seg Neutrophils # Seg Neutrophils # Man Lymphocytes # (Manual) PT INR D-Dimer ABG pH 7.513 H POC ABG pCO2 POC ABG pO2 ABG pO2 170.6 H ABG HCO3 ABG O2 Saturation 99.2 H ABG Hemoglobin 8.8 L ABG Potassium ABG Chloride ABG Glucose Sodium Potassium Chloride Carbon Dioxide BUN Creatinine Glucose POC Glucose 107 H 108 H Ferritin Lactate Dehydrogenase C-Reactive Protein Total Protein Albumin Arterial Blood Glucose Ur Specific Tiona Urine WBC (Auto) 03/08/20 03/09/20 03/09/20 21:07 04:17 11:08 WBC RBC Hgb Hct RDW Lymph % (Auto) Seg Neutrophils % Seg Neuts % (Manual) Lymphocytes % (Manual) Seg Neutrophils # Seg Neutrophils # Man Lymphocytes # (Manual) PT INR D-Dimer ABG pH 7.498 H POC ABG pCO2 POC ABG pO2 125.5 H ABG pO2 ABG HCO3 ABG O2 Saturation ABG Hemoglobin ABG Potassium ABG Chloride 109.0 H ABG Glucose 103 H Sodium Potassium Chloride 109.4 H Carbon Dioxide BUN 6 L Creatinine 0.3 L Glucose 121 H POC Glucose 123 H Ferritin Lactate Dehydrogenase C-Reactive Protein Total Protein Albumin 2.8 L Arterial Blood Glucose 103 H Ur Specific Tiona Urine WBC (Auto) 03/10/20 03/10/20 03/10/20 04:46 08:10 08:10 WBC RBC Hgb 9.5 L Hct 28.6 L RDW Lymph % (Auto) Seg Neutrophils % Seg Neuts % (Manual) Lymphocytes % (Manual) Seg Neutrophils # Seg Neutrophils # Man Lymphocytes # (Manual) PT INR D-Dimer ABG pH 7.533 H POC ABG pCO2 POC ABG pO2 128.2 H ABG pO2 ABG HCO3 ABG O2 Saturation ABG Hemoglobin 10.0 L ABG Potassium ABG Chloride ABG Glucose 110 H Sodium Potassium Chloride Carbon Dioxide BUN 5 L Creatinine 0.2 L Glucose POC Glucose Ferritin Lactate Dehydrogenase C-Reactive Protein Total Protein Albumin Arterial Blood Glucose 110 H Ur Specific Tiona Urine WBC (Auto) 03/10/20 03/10/20 03/11/20 17:22 23:24 05:07 WBC RBC Hgb Hct RDW Lymph % (Auto) Seg Neutrophils % Seg Neuts % (Manual) Lymphocytes % (Manual) Seg Neutrophils # Seg Neutrophils # Man Lymphocytes # (Manual) PT INR D-Dimer ABG pH POC ABG pCO2 POC ABG pO2 ABG pO2 ABG HCO3 ABG O2 Saturation ABG Hemoglobin ABG Potassium ABG Chloride ABG Glucose Sodium Potassium Chloride Carbon Dioxide BUN Creatinine Glucose POC Glucose 108 H 189 H 217 H Ferritin Lactate Dehydrogenase C-Reactive Protein Total Protein Albumin Arterial Blood Glucose Ur Specific Tiona Urine WBC (Auto) 03/11/20 11:28 WBC RBC Hgb Hct RDW Lymph % (Auto) Seg Neutrophils % Seg Neuts % (Manual) Lymphocytes % (Manual) Seg Neutrophils # Seg Neutrophils # Man Lymphocytes # (Manual) PT INR D-Dimer ABG pH POC ABG pCO2 POC ABG pO2 ABG pO2 ABG HCO3 ABG O2 Saturation ABG Hemoglobin ABG Potassium ABG Chloride ABG Glucose Sodium Potassium Chloride Carbon Dioxide BUN Creatinine Glucose POC Glucose 212 H Ferritin Lactate Dehydrogenase C-Reactive Protein Total Protein Albumin Arterial Blood Glucose Ur Specific Tiona Urine WBC (Auto) Chest x-ray: other (none today) Allied health notes reviewed: nursing
--- NOTE | 2020-03-11 17:01 | Progress Note ---
Assessment and Plan Cultures: SARS CoV2 PCR: Negative 03/03/2020 blood culture: In process 03/03/2020 sputum culture: MRSA A/P: 64-year-old male with traumatic brain injury, hypertension, indwelling tracheostomy and PEG tube, fdc resident at [place] was admitted to the hospital with fever, hypoxia: #Sepsis, leucocytosis likely secondary to bilateral pneumonia. UA without significant pyuria. Patient has indwelling catheter. Urine culture likely to be positive. #MRSA pneumonia #Acute on chronic respiratory failure: With chronic tracheostomy. #Hypernatremia Recs: - Continue vancomycin goal trough 10-20. -Plan 8 days of antibiotics, can de-escalate to Bactrim if improved O2 requirements Dr. Lemon taking over tomorrow We will continue to follow, please call with questions. Jhonathan Gray MD [facility] O: [phone] F: [phone] Subjective Date of service: 03/11/20 Principal diagnosis: Severe Sepsis; PNA; Ac on ch hypoxemic resp failure; [id number] Interval history: Afebrile, no acute changes. Objective - Exam Narrative Exam: Physical Exam: Constitutional: Mechanically ventilated through tracheostomy Head, Ears, Nose: Normocephalic, atraumatic. External ears, nose normal Eyes: Conjunctivae/corneas clear. No icterus. No ptosis. Neck: Tracheostomy Oral: Tracheostomy Cardiovascular: S1, S2 normal. Respiratory: Good air entry, clear to auscultation bilaterally GI: Soft, non-tender; bowel sounds normal. No peritoneal signs. Musculoskeletal: No pedal edema, no cyanosis. Skin: No rash or abscess Hem/Lymphatic: No palpable cervical or supraclavicular nodes. No lymphangitis Psych: Sedated Neurological: Sedated - Constitutional Vitals: Vital Signs Temp Pulse Resp BP Pulse Ox 97.8 F 79 22 108/69 100 03/11/20 03:34 03/11/20 16:00 03/11/20 16:00 03/11/20 16:00 03/11/20 16:00 Temperature -Last 24 Hours Temperature 97.8 F Temperature 98.2 F Temperature 97.9 F - Labs CBC & Chem 7: 03/10/20 08:10 03/10/20 08:10 Labs: Abnormal lab results 03/10/20 03/10/20 03/11/20 Range/Units 17:22 23:24 05:07 POC Glucose 108 H 189 H 217 H (70-105) mg/dL 03/11/20 Range/Units 11:28 POC Glucose 212 H (70-105) mg/dL
[2020-03-11] MEDS: ENOXAPARIN 40 MG/0.4 ML INJ SUB-Q SCH (21:14)
[2020-03-12] MEDS: IPRATROPIUM/ALBUTEROL SULFATE 3 ML AMPUL.NEB IH SCH ×4 (01:01→19:45)
[2020-03-12] MEDS: methylPREDNISolone Sod Succinate 125 MG/2 ML INJ IV SCH ×3 (05:09→21:15)
[2020-03-12] MEDS: BUDESONIDE 0.5 MG/2 ML NEBU IH SCH ×2 (08:30→19:45)
[2020-03-12] MEDS: ARFORMOTEROL 15 MCG/2 ML NEBU IH SCH ×2 (08:30→19:45)
[2020-03-12] MEDS: FAMOTIDINE 20 MG TAB FEEDTUBE SCH ×2 (09:07→21:15)
[2020-03-12] MEDS: VANCOMYCIN 1,500 MG in SODIUM CHLORIDE 0.9% 500 ML 500 ML IV SCH ×2 (09:07→21:15)
[2020-03-12] MEDS: MORPHINE 2 MG/1 ML INJ IV PRN (11:25)
--- NOTE | 2020-03-12 11:26 | Progress Note ---
Assessment and Plan Assessment and plan: --PUI; COVID-19 test negative on 03/04/2020 --acute on chronic hypoxic respiratory failure; Patient has chronic tracheostomy now on ventilatory support Continue nebulizers wean off ventilator as tolerated . Pulmonary critical following. --MRSA pneumonia; respiratory and contact isolation Vancomycin, --Bilateral pneumonia; Continue current antibiotics, follow cultures Ventilatory support, pulmonary and ID following --Severe hypokalemia; resolved Closely monitor lecture lites --Hypernatremia; resolved Gentle hydration supportive care --Sepsis secondary to bilateral pneumonia/UTI Continue current antibiotics, follow cultures, ID following --Severe malnutrition; hypoalbuminemia Supportive care, nutrition consult --DVT prophylaxis;Lovenox --Restrain the patient for agitation --Full CODE STATUS; We will closely monitor the patient and adjust the management as needed The high probability of a clinically significant, sudden or life threatening deterioration of the [respiratory, metabolic and infectious disease] system(s) required my full and direct attention, intervention and personal management. The aggregate critical care time was [33] minutes. This time is in addition to time spent performing reported procedures but includes the following: [x] Data Review and interpretation [x] Patient assessment and monitoring of vital signs [x] Documentation [x] Medication orders and management 03/05/2020 -Patient is admitted for acute on chronic respiratory failure and currently on and requiring mechanical ventilation. Continue with IV antibiotics for UTI and sepsis. COVID-19 test is done and is negative. Seismograph Recorder consulted. Continue with the current management. 03/06/2020 -Patient is admitted for acute on chronic respiratory failure. Patient is on trach and vent. Patient is on IV cefepime and vancomycin per ID recommendation. Pulmonary consulted for vent and trach management. 03/07/2020; continue ventilatory support Wean off vent as tolerated, consults and recommendations noted and appreciated 03/08/2020; We will closely monitor the patient and adjust the management as needed Plan of care reviewed with the patient and his nurse MRSA pneumonia, vancomycin, contact isolation 03/09/2020; patient remains on ventilatory support, on IV antibiotics Wean off vent as tolerated, information consultant recommendations noted and appreciated Plan of care reviewed with the patient's nurse and case management 03/10/2020; chest x-ray mild improvement, remains on ventilatory support, wean off ventilator as tolerated Contact isolation for MRSA pneumonia, continue vancomycin 03/11/2020; patient remains on ventilatory support, MRSA pneumonia on vancomycin for total 8 days and de-escalate to Bactrim DS Per ID recommendations. Contact isolation, restraint for agitation as needed 03/12/2020; we will wean off ventilator as tolerated , patient is more alert and awake today Tracheostomy on vent, on contact isolation MRSA on vancomycin, will follow consultants recommendations History Interval history: I have seen and examined the patient at the bedside this morning in ICU Patient's chart and medications reviewed Remains on ventilatory support Vital signs noted Hospitalist Physical - Constitutional Vitals: Temp Pulse Resp BP Pulse Ox 98.4 F 94 H 27 H 136/76 99 03/12/20 03:14 03/12/20 10:05 03/12/20 10:05 03/12/20 10:05 03/12/20 10:05 General appearance: Present: no acute distress, cachectic, disheveled, other (Tracheostomy, on ventilatory support) - EENT Eyes: Present: PERRL, EOM intact - Neck Neck: Present: supple, normal ROM - Respiratory Respiratory effort: normal Respiratory: bilateral: diminished, rhonchi, negative: rales, wheezing - Cardiovascular Rhythm: regular Heart Sounds: Present: S1 & S2 - Extremities Extremities: no ischemia, No edema - Abdominal General gastrointestinal: soft, non-tender, non-distended, normal bowel sounds, other (PEG tube in place) - Integumentary Integumentary: Present: clear, warm - Psychiatric Psychiatric: other (Ventilatory support) - Neurologic Neurologic: moves all extremities, other (Tracheostomy ventilatory support) Results - Labs CBC & Chem 7: 03/10/20 08:10 03/10/20 08:10 Labs: Laboratory Last Values WBC 9.8 K/mm3 (4.5-11.0) 03/07/20 06:03 RBC 3.21 M/mm3 (3.65-5.03) L 03/07/20 06:03 Hgb 9.5 gm/dl (11.8-15.2) L 03/10/20 08:10 Hct 28.6 % (35.5-45.6) L 03/10/20 08:10 MCV 89 fl (84-94) 03/07/20 06:03 MCH 31 pg (28-32) 03/07/20 06:03 MCHC 34 % (32-34) 03/07/20 06:03 RDW 16.6 % (13.2-15.2) H 03/07/20 06:03 Plt Count 188 K/mm3 (140-440) 03/07/20 06:03 Lymph % (Auto) 13.7 % (13.4-35.0) 03/07/20 06:03 [place] % (Auto) 5.4 % (0.0-7.3) 03/07/20 06:03 Eos % (Auto) 0.5 % (0.0-4.3) 03/07/20 06:03 Baso % (Auto) 0.3 % (0.0-1.8) 03/07/20 06:03 Lymph # (Auto) 1.3 K/mm3 (1.2-5.4) 03/07/20 06:03 [place] # (Auto) 0.5 K/mm3 (0.0-0.8) 03/07/20 06:03 Eos # (Auto) 0.0 K/mm3 (0.0-0.4) 03/07/20 06:03 Baso # (Auto) 0.0 K/mm3 (0.0-0.1) 03/07/20 06:03 Add Manual Diff Complete 03/04/20 02:59 Total Counted 100 03/04/20 02:59 Seg Neutrophils % 80.1 % (40.0-70.0) H 03/07/20 06:03 Seg Neuts % (Manual) 93.0 % (40.0-70.0) H 03/04/20 02:59 Band Neutrophils % 0 % 03/04/20 02:59 Lymphocytes % (Manual) 5.0 % (13.4-35.0) L 03/04/20 02:59 Reactive Lymphs % (Man) 0 % 03/04/20 02:59 Monocytes % (Manual) 2.0 % (0.0-7.3) 03/04/20 02:59 Eosinophils % (Manual) 0 % (0.0-4.3) 03/04/20 02:59 Basophils % (Manual) 0 % (0.0-1.8) 03/04/20 02:59 Metamyelocytes % 0 % 03/04/20 02:59 Myelocytes % 0 % 03/04/20 02:59 Promyelocytes % 0 % 03/04/20 02:59 Blast Cells % 0 % 03/04/20 02:59 Nucleated RBC % Not Reportable 03/04/20 02:59 Seg Neutrophils # 7.8 K/mm3 (1.8-7.7) H 03/07/20 06:03 Seg Neutrophils # Man 14.1 K/mm3 (1.8-7.7) H 03/04/20 02:59 Band Neutrophils # 0.0 K/mm3 03/04/20 02:59 Lymphocytes # (Manual) 0.8 K/mm3 (1.2-5.4) L 03/04/20 02:59 Abs React Lymphs (Man) 0.0 K/mm3 03/04/20 02:59 Monocytes # (Manual) 0.3 K/mm3 (0.0-0.8) 03/04/20 02:59 Eosinophils # (Manual) 0.0 K/mm3 (0.0-0.4) 03/04/20 02:59 Basophils # (Manual) 0.0 K/mm3 (0.0-0.1) 03/04/20 02:59 Metamyelocytes # 0.0 K/mm3 03/04/20 02:59 Myelocytes # 0.0 K/mm3 03/04/20 02:59 Promyelocytes # 0.0 K/mm3 03/04/20 02:59 Blast Cells # 0.0 K/mm3 03/04/20 02:59 WBC Morphology Not Reportable 03/04/20 02:59 Hypersegmented Neuts Not Reportable 03/04/20 02:59 Hyposegmented Neuts Not Reportable 03/04/20 02:59 Hypogranular Neuts Not Reportable 03/04/20 02:59 Smudge Cells Not Reportable 03/04/20 02:59 Toxic Granulation Not Reportable 03/04/20 02:59 Toxic Vacuolation Not Reportable 03/04/20 02:59 Dohle Bodies Not Reportable 03/04/20 02:59 Pelger-Huet Anomaly Not Reportable 03/04/20 02:59 Mike Rods Not Reportable 03/04/20 02:59 Platelet Estimate Consistent w auto 03/04/20 02:59 Clumped Platelets Not Reportable 03/04/20 02:59 Plt Clumps, EDTA Not Reportable 03/04/20 02:59 Large Platelets Not Reportable 03/04/20 02:59 Giant Platelets Not Reportable 03/04/20 02:59 Platelet Satelliting Not Reportable 03/04/20 02:59 Plt Morphology Comment Not Reportable 03/04/20 02:59 RBC Morphology Not Reportable 03/04/20 02:59 Dimorphic RBCs Not Reportable 03/04/20 02:59 Polychromasia Not Reportable 03/04/20 02:59 Hypochromasia Few 03/04/20 02:59 Poikilocytosis Not Reportable 03/04/20 02:59 Anisocytosis Few 03/04/20 02:59 Microcytosis Not Reportable 03/04/20 02:59 Macrocytosis Not Reportable 03/04/20 02:59 Spherocytes Not Reportable 03/04/20 02:59 Pappenheimer Bodies Not Reportable 03/04/20 02:59 Sickle Cells Not Reportable 03/04/20 02:59 Target Cells Not Reportable 03/04/20 02:59 Tear Drop Cells Not Reportable 03/04/20 02:59 Ovalocytes Not Reportable 03/04/20 02:59 Helmet Cells Not Reportable 03/04/20 02:59 [place]-Flippin Bodies Not Reportable 03/04/20 02:59 [place] Rings Not Reportable 03/04/20 02:59 [place] Cells Not Reportable 03/04/20 02:59 Bite Cells Not Reportable 03/04/20 02:59 Crenated Cell Not Reportable 03/04/20 02:59 Elliptocytes Not Reportable 03/04/20 02:59 Acanthocytes (Spur) Not Reportable 03/04/20 02:59 Rouleaux Not Reportable 03/04/20 02:59 Hemoglobin C Crystals Not Reportable 03/04/20 02:59 Schistocytes Not Reportable 03/04/20 02:59 Malaria parasites Not Reportable 03/04/20 02:59 Branden Bodies Not Reportable 03/04/20 02:59 Hem Pathologist Commnt No 03/04/20 02:59 PT 15.9 Sec. (12.2-14.9) H 03/04/20 02:59 INR 1.29 (0.87-1.13) H 03/04/20 02:59 D-Dimer 1415.56 ng/mlDDU (0-234) H 03/03/20 22:00 ABG pH 7.533 (7.320-7.450) H 03/10/20 04:46 POC ABG pCO2 34.1 mmHg (32.0-48.0) 03/10/20 04:46 ABG pCO2 31.0 mm Hg 03/08/20 04:30 POC ABG pO2 128.2 mmHg (83-108) H 03/10/20 04:46 ABG pO2 170.6 mm Hg (80.0-90.0) H 03/08/20 04:30 POC ABG HCO3 28 03/10/20 04:46 ABG HCO3 24.3 mmol/L (20.0-26.0) 03/08/20 04:30 ABG O2 Saturation 99.2 % (95.0-99.0) H 03/08/20 04:30 ABG O2 Content 12.4 (0.0-44) 03/08/20 04:30 POC ABG Base Excess 5.3 03/10/20 04:46 ABG Base Excess 1.6 mmol/L (-2.0-3.0) 03/08/20 04:30 ABG Hemoglobin 10.0 (12.0-17.5) L 03/10/20 04:46 ABG Carboxyhemoglobin 1.0 % (0.0-5.0) 03/08/20 04:30 ABG Methemoglobin 0.4 % (0.0-1.5) 03/08/20 04:30 ABG Sodium 137.7 mmol/L (136.0-145.0) 03/10/20 04:46 ABG Potassium 3.6 mmol/L (3.40-4.50) 03/10/20 04:46 ABG Chloride 107.0 mmol/L (98-107) 03/10/20 04:46 ABG Glucose 110 mg/dL (65-95) H 03/10/20 04:46 Oxyhemoglobin 97.7 % (95.0-99.0) 03/08/20 04:30 FiO2 28 03/10/20 04:46 Sodium 140 mmol/L (137-145) 03/10/20 08:10 Potassium 3.7 mmol/L (3.6-5.0) 03/10/20 08:10 Chloride 106.8 mmol/L (98-107) 03/10/20 08:10 Carbon Dioxide 27 mmol/L (22-30) 03/10/20 08:10 Anion Gap 10 mmol/L 03/10/20 08:10 BUN 5 mg/dL (9-20) L 03/10/20 08:10 Creatinine 0.2 mg/dL (0.8-1.3) L 03/10/20 08:10 Estimated GFR > 60 ml/min 03/10/20 08:10 BUN/Creatinine Ratio 25 % 03/10/20 08:10 Glucose 84 mg/dL (75-100) 03/10/20 08:10 POC Glucose 193 mg/dL (70-105) H 03/12/20 05:14 Lactic Acid 0.80 mmol/L (0.7-2.0) 03/04/20 02:59 Calcium 8.8 mg/dL (8.4-10.2) 03/10/20 08:10 Magnesium 2.00 mg/dL (1.7-2.3) 03/08/20 21:07 Ferritin 522.1 ng/mL (30.0-300.0) H 03/03/20 22:00 Total Bilirubin 0.20 mg/dL (0.1-1.2) 03/08/20 21:07 AST 19 units/L (5-40) 03/08/20 21:07 ALT 22 units/L (7-56) 03/08/20 21:07 Alkaline Phosphatase 86 units/L (35-129) 03/08/20 21:07 Lactate Dehydrogenase 240 units/L (91-180) H 03/03/20 22:00 C-Reactive Protein 17.20 mg/dL (0.00-1.30) H 03/03/20 22:00 Total Protein 6.9 g/dL (6.3-8.2) D 03/08/20 21:07 Albumin 2.8 g/dL (3.9-5) L 03/08/20 21:07 Albumin/Globulin Ratio 0.7 % 03/08/20 21:07 Procalcitonin 0.31 ng/mL (<0.15) 03/03/20 22:00 Arterial Blood Glucose 110 mg/dL (65-95) H 03/10/20 04:46 Arterial Blood Ionized Calcium 4.6 mg/dL (4.6-5.3) 03/10/20 04:46 Urine Color Bing (Yellow) 03/03/20 22:15 Urine Turbidity Clear (Clear) 03/03/20 22:15 Urine pH 5.0 (5.0-7.0) 03/03/20 22:15 Ur Specific [place] 1.031 (1.003-1.030) H 03/03/20 22:15 Urine Protein 30 mg/dl mg/dL (Negative) 03/03/20 22:15 Urine Glucose (UA) Neg mg/dL (Negative) 03/03/20 22:15 Urine Ketones Neg mg/dL (Negative) 03/03/20 22:15 Urine Blood Neg (Negative) 03/03/20 22:15 Urine Nitrite Neg (Negative) 03/03/20 22:15 Urine Bilirubin Neg (Negative) 03/03/20 22:15 Urine Urobilinogen 4.0 mg/dL (<2.0) 03/03/20 22:15 Ur Leukocyte Esterase Tr (Negative) 03/03/20 22:15 Urine WBC (Auto) 8.0 /HPF (0.0-6.0) H 03/03/20 22:15 Urine RBC (Auto) 2.0 /HPF (0.0-6.0) 03/03/20 22:15 U Epithel Cells (Auto) 1.0 /HPF (0-13.0) 03/03/20 22:15 Urine Bacteria (Auto) 1+ /HPF (Negative) 03/03/20 22:15 Hyaline Casts 1 /LPF 03/03/20 22:15 Urine Mucus 1+ /HPF 03/03/20 22:15 Vancomycin Trough 9.0 ug/mL (5.0-20.0) 03/06/20 20:15 Coronavirus (PCR) Negative (Negative) 03/04/20 09:16 Sarah/IV: Voiding Method Condom Catheter IV Catheter Type [Right Upper INT / Saline Lock arm] IV Catheter Type [Left Upper INT / Saline Lock arm] IV Catheter Type [Right Peripheral IV Forearm] Active Medications - Current Medications Current Medications: Generic Name Dose Route Start Last Admin Trade Name Freq PRN Reason Stop Dose Admin Albuterol/Ipratropium 1 ampul 03/12/20 08:00 03/12/20 08:30 Duoneb *Not For Prn Use* IH 1 ampul TIDRT KESHAWN Administration Lipase/Protease/Amylase 1 each 03/06/20 14:54 Pancreирина Chenye 10,500 Unit FEEDTUBE PRN PRN For Clogged Feeding Tube Arformoterol Tartrate 15 mcg 03/10/20 20:00 03/12/20 08:30 Brovana Nebu IH 15 mcg Q12HRT KESHAWN Administration Budesonide 0.5 mg 03/10/20 20:00 03/12/20 08:30 Pulmicort IH 0.5 mg Q12HRT KESHAWN Administration Enoxaparin Sodium 40 mg 03/04/20 22:00 03/11/20 21:14 Enoxaparin SUB-Q 40 mg QDAY@2200 KESHAWN Administration Protocol Famotidine 20 mg 03/09/20 11:00 03/12/20 09:07 Pepcid FEEDTUBE 20 mg BID KESHAWN Administration Hydrophilic Ointment 1 applic 03/03/20 22:31 03/06/20 08:19 Vaseline Lip Therapy TP 1 applic Q2HR PRN Administration Dry Lips Vancomycin HCl 1,500 mg/ 530 mls @ 333.333 mls/hr 03/08/20 10:00 03/12/20 09:07 Sodium Chloride IV 03/12/20 23:59 333.333 mls/hr Q12HR KESHAWN Administration Lorazepam 1 mg 03/08/20 23:42 03/11/20 22:06 Ativan IV 1 mg Q4H PRN Administration Agitation Magnesium Hydroxide 30 ml 03/03/20 23:45 Milk Of Magnesia PO Q4H PRN Constipation Methylprednisolone Sodium Succinate 60 mg 03/10/20 16:00 03/12/20 05:09 Solu-Medrol IV 60 mg Q8HR KESHAWN Administration Morphine Sulfate 2 mg 03/03/20 23:45 03/08/20 22:20 Morphine IV 2 mg Q4H PRN Administration Pain, Moderate (4-6) Multi-Ingred Cream/Lotion/Oil/Oint 1 applic 03/03/20 22:31 Artificial Tears Ophth Oint OU Q4HR PRN Dry Eye(s) Ondansetron HCl 4 mg 03/03/20 23:45 03/05/20 16:12 Zofran IV 4 mg Q8H PRN Administration Nausea And Vomiting Simethicone 80 mg 03/11/20 09:39 03/11/20 11:06 Mylicon PO 80 mg Q6H PRN Administration Gas pain Simple Syrup 15 ml 03/06/20 14:54 Simple Syrup FEEDTUBE PRN PRN Hypoglycemia Simple Syrup 30 ml 03/06/20 14:54 Simple Syrup FEEDTUBE PRN PRN Hypoglycemia Sodium Bicarbonate 325 mg 03/06/20 14:54 Sodium Bicarbonate FEEDTUBE PRN PRN For Clogged Feeding Tube Sodium Chloride 10 ml 03/04/20 10:00 03/12/20 09:18 Sodium Chloride Flush Syringe 10 Ml IV 10 ml BID KESHAWN Administration Sodium Chloride 10 ml 03/03/20 23:45 Sodium Chloride Flush Syringe 10 Ml IV PRN PRN LINE FLUSH Nutrition/Malnutrition Assess - Dietary Evaluation Nutrition/Malnutrition Findings: Nutrition Notes Start: 03/04/20 09 :15 Freq: Status: Active Protocol: Document 03/09/20 11:42 EN (Rec: 03/09/20 11:46 EN [id number]) Co-Sign 03/09/20 11:42 Nutrition Notes Initial or Follow up Reassessment Current Diagnosis Sepsis,Hypertension, Respiratory Failure Other Pertinent Diagnosis Bilat pneu, sacral wound, TBI Current Diet Osmolite 1.5 at 60 ml/hr Labs/Tests Reviewed Pertinent Medications Reviewed Height 6 ft 3 in Weight 63.4 kg [place] Body Weight (kg) 89.09 BMI 17.4 Weight Status Underweight Subjective/Other Information F/u for TF tolerance, vent status and diarrhea. Pt remains on vent. Per RN, pt tolerating TF at goal rate and stool is no longer watery. Percent of energy/protein needs met: 97%/100% Burn Absent Trauma Absent GI Symptoms None Current % PO Negligible Minimum of two criteria No Reduced Screen Operator Strength Measurably Reduced (severe) #2 Nutrition Diagnosis Increased nutrient needs ( specify in comment below) Comments: Protein Etiology wound healing As Evidenced by Signs and Symptoms Sacral wound #1 Nutrition Diagnosis Inadequate oral intake Diagnosis Progress(for reassessment Continues documentation) Is patient on ventilator? Yes Is Patient Ambulatory and/or Out of Bed No REE-([facility]-confined to bed) 1816.932 Kcal/Kg value to use for calculation 35 Approximate Energy Requirements Using 2219 kcal/Kg Calculation Used for Recommendations Kcal/kg Additional Notes Pro needs 1.25-2g/k-127g/ day Fluid needs 1ml/kcal Nutrition Intervention Change Diet Order: Continue current TF Nutrition Support: Osmolite 1.5 at 60ml/hr with 175ml water flush q4h. Kcal 2,160 Protein (gm) 90 Fluid (mL) 1,097 Goal #1 TF tolerance Goal #2 TF (at goal rate) to meet 100% energy and pro needs Goal #3 Wt maintenance and/or gain Goal #4 Wound healing Anticipated Discharge Needs: Continue TF Follow-Up By: 03/14/20 Additional Comments F/u for TF tolerance
--- NOTE | 2020-03-12 13:55 | Progress Note ---
Assessment and Plan Sepsis, leucocytosis likely secondary to bilateral pneumonia. Acute and chronic hypoxemic respiratory failure, on MVS Chronic tracheostomy Bilateral pneumonia [id number] infection Oropharyngeal dysphagia s/p PEG Chronic indwelling Martinez cather h/o TBI with chronic encephalopathy Hypernatremia - get Mid-line - begin Seroquel for sedation / anxiolysis - Daily SAT's and SBT assessment as tolerated - rest on AC qhs during wean - continue care as below otherwise; - continue Brovana & Pulmicort re: COPD - continue empiric steroids re: COPD exacerbation - continue contact isolation for MRSA - continue accuchecks with glycemic control per SSI (While critically ill target blood glucose of 140-180 mg/dL; avoid hypoglycemia) - sedation prn for target RASS 0 to -1 - continue to wean supplemental oxygen for target O2 sat's > 92% acutely - VAP bundle addressed - continue lung protective strategies - continue bronchodilators with pulmonary hygiene per RT - wean per pulmonary driven protocols otherwise - Free water via PEG tube for hypernatremia - Chronic martinez, catheter care - avoid nephrotoxins, renally dose all medications - continue to avoid benzodiazepine's, reduce the possibility of delirium - complete AB's per ID rec's, follow cultures and de-escalate as indicated (treat empirically for HAP; on Cefepime and Vancomycin) - prn analgesia per CPOT score - Maintenance of sleep-wake cycle, avoid delirium - continue enteral nutritional support at goal rate as tolerated - G.I. & VTE prophylaxis with Famotidine and enoxaparin - PT/OT/ROM exercises - continue mobility protocols for pressure ulcer prophylaxis - Monitor hemodynamics closely - continue other care per attending / other consultants - discharge planning ongoing concurrently .... Re-evaluate in am & prn CONDITION: CRITICAL PROGNOSIS: GUARDED CODE STATUS: FULL CODE The high probability of a clinically significant, sudden or life-threatening de terioration of the [cardiac, respiratory & neurologic] system(s) required my full and direct attention, intervention and personal management. The aggregate critical care time was [32] minutes without overlap. Time includes spent on; [x] Data Review and interpretation [x] Patient assessment and monitoring of vital signs [x] Documentation [x] Medication orders and management Subjective Date of service: 03/12/20 Principal diagnosis: Severe Sepsis; PNA; Ac on ch hypoxemic resp failure; [id number] Interval history: Patient is seen today for: Severe Sepsis; Pneumonia; Acute on chronic hypoxemic respiratory failure; Chronic tracheostomy; [id number] infection; h/o TBI with chronic encephalopathy; Hypernatremia Seen and examined at bedside; 24hour events reviewed; nursing and respiratory care staff consulted; no adverse overnight events reported to me; resting peacefully in bed; Objective Vital Signs - 12hr 03/12/20 03/12/20 03/12/20 02:01 03:01 03:14 Temperature 98.4 F Pulse Rate 65 67 Pulse Rate [ Anterior Bilateral Throughout] Pulse Rate [ From Monitor] Respiratory 26 H 19 Rate Respiratory Rate [Anterior Bilateral Throughout] Blood Pressure 114/66 115/67 O2 Sat by Pulse 100 100 Oximetry O2 Sat by Pulse Oximetry [ Assessment] 03/12/20 03/12/20 03/12/20 04:00 04:01 05:01 Temperature Pulse Rate 74 67 57 L Pulse Rate [ Anterior Bilateral Throughout] Pulse Rate [ 63 From Monitor] Respiratory 22 20 19 Rate Respiratory Rate [Anterior Bilateral Throughout] Blood Pressure 117/63 117/63 O2 Sat by Pulse 100 100 100 Oximetry O2 Sat by Pulse Oximetry [ Assessment] 03/12/20 03/12/20 03/12/20 05:08 06:01 07:01 Temperature Pulse Rate 56 L 110 H 102 H Pulse Rate [ Anterior Bilateral Throughout] Pulse Rate [ From Monitor] Respiratory 36 H 34 H Rate Respiratory Rate [Anterior Bilateral Throughout] Blood Pressure 113/62 113/62 131/86 O2 Sat by Pulse 100 99 99 Oximetry O2 Sat by Pulse Oximetry [ Assessment] 03/12/20 03/12/20 03/12/20 08:00 08:30 09:00 Temperature Pulse Rate 70 70 67 Pulse Rate [ 69 Anterior Bilateral Throughout] Pulse Rate [ From Monitor] Respiratory 22 14 Rate Respiratory 24 Rate [Anterior Bilateral Throughout] Blood Pressure 122/69 122/69 124/64 O2 Sat by Pulse 100 100 100 Oximetry O2 Sat by Pulse 100 Oximetry [ Assessment] 03/12/20 03/12/20 03/12/20 10:00 10:05 11:00 Temperature Pulse Rate 78 94 H 99 H Pulse Rate [ Anterior Bilateral Throughout] Pulse Rate [ From Monitor] Respiratory 30 H 27 H 23 Rate Respiratory Rate [Anterior Bilateral Throughout] Blood Pressure 128/69 136/76 136/76 O2 Sat by Pulse 99 99 99 Oximetry O2 Sat by Pulse Oximetry [ Assessment] 03/12/20 03/12/20 03/12/20 12:00 12:07 13:00 Temperature Pulse Rate 85 76 83 Pulse Rate [ Anterior Bilateral Throughout] Pulse Rate [ From Monitor] Respiratory 26 H 29 H 32 H Rate Respiratory Rate [Anterior Bilateral Throughout] Blood Pressure 133/78 133/78 133/78 O2 Sat by Pulse 100 99 100 Oximetry O2 Sat by Pulse Oximetry [ Assessment] 03/12/20 13:19 Temperature Pulse Rate Pulse Rate [ 72 Anterior Bilateral Throughout] Pulse Rate [ From Monitor] Respiratory Rate Respiratory 24 Rate [Anterior Bilateral Throughout] Blood Pressure O2 Sat by Pulse Oximetry O2 Sat by Pulse Oximetry [ Assessment] Constitutional: no acute distress, other (elderly thin male with mildly increased respiratory effort at rest on MVS) Eyes: non-icteric ENT: oropharynx moist, other (+ midline Shiley tracheostomy) Neck: supple, no lymphadenopathy, no JVD Effort: mildly labored Ascultation: Bilateral: diminished breath sounds, rhonchi, other (prolonged exp phase) Percussion: Bilateral: not dull Cardiovascular: regular rate and rhythm, other (S1,S2) Gastrointestinal: normoactive bowel sounds, soft, non-tender, non-distended, other (PEG in place) Integumentary: normal Extremities: no cyanosis, no edema, pulses normal Neurologic: pupils equal and round, CN II-XII normal, unable to assess, other (RUExt weakness) Psychiatric: mood appropriate, affect normal CBC and BMP: 03/10/20 08:10 03/10/20 08:10 ABG, PT/INR, D-dimer: ABG ABG pH 7.533 (7.320-7.450) H 03/10/20 04:46 POC ABG pCO2 34.1 mmHg (32.0-48.0) 03/10/20 04:46 ABG pCO2 31.0 mm Hg 03/08/20 04:30 POC ABG pO2 128.2 mmHg (83-108) H 03/10/20 04:46 ABG pO2 170.6 mm Hg (80.0-90.0) H 03/08/20 04:30 POC ABG HCO3 28 03/10/20 04:46 ABG O2 Saturation 99.2 % (95.0-99.0) H 03/08/20 04:30 PT/INR, D-dimer PT 15.9 Sec. (12.2-14.9) H 03/04/20 02:59 INR 1.29 (0.87-1.13) H 03/04/20 02:59 D-Dimer 1415.56 ng/mlDDU (0-234) H 03/03/20 22:00 Abnormal lab findings: Abnormal Labs 03/03/20 03/03/20 03/03/20 01:10 21:51 21:51 WBC 15.5 H RBC Hgb Hct 35.3 L RDW 17.9 H Lymph % (Auto) 11.6 L Seg Neutrophils % 83.7 H Seg Neuts % (Manual) Lymphocytes % (Manual) Seg Neutrophils # 13.0 H Seg Neutrophils # Man Lymphocytes # (Manual) PT INR D-Dimer ABG pH POC ABG pCO2 POC ABG pO2 ABG pO2 173.4 H ABG HCO3 26.7 H ABG O2 Saturation 99.1 H ABG Hemoglobin 11.6 L ABG Potassium ABG Chloride ABG Glucose Sodium 151 H Potassium Chloride 114.4 H Carbon Dioxide BUN 29 H Creatinine 0.6 L Glucose 116 H POC Glucose Ferritin Lactate Dehydrogenase C-Reactive Protein Total Protein 8.9 H Albumin 2.8 L Arterial Blood Glucose Ur Specific [place] Urine WBC (Auto) 03/03/20 03/03/20 03/03/20 22:00 22:00 22:00 WBC RBC Hgb Hct RDW Lymph % (Auto) Seg Neutrophils % Seg Neuts % (Manual) Lymphocytes % (Manual) Seg Neutrophils # Seg Neutrophils # Man Lymphocytes # (Manual) PT INR D-Dimer 1415.56 H ABG pH POC ABG pCO2 POC ABG pO2 ABG pO2 ABG HCO3 ABG O2 Saturation ABG Hemoglobin ABG Potassium ABG Chloride ABG Glucose Sodium Potassium Chloride Carbon Dioxide BUN Creatinine Glucose 106 H POC Glucose Ferritin 522.1 H Lactate Dehydrogenase 240 H C-Reactive Protein 17.20 H Total Protein Albumin Arterial Blood Glucose Ur Specific [place] Urine WBC (Auto) 03/03/20 03/04/20 03/04/20 22:15 02:59 02:59 WBC 15.2 H RBC 3.56 L Hgb 10.9 L Hct 33.4 L RDW 17.5 H Lymph % (Auto) Seg Neutrophils % Seg Neuts % (Manual) 93.0 H Lymphocytes % (Manual) 5.0 L Seg Neutrophils # Seg Neutrophils # Man 14.1 H Lymphocytes # (Manual) 0.8 L PT 15.9 H INR 1.29 H D-Dimer ABG pH POC ABG pCO2 POC ABG pO2 ABG pO2 ABG HCO3 ABG O2 Saturation ABG Hemoglobin ABG Potassium ABG Chloride ABG Glucose Sodium Potassium Chloride Carbon Dioxide BUN Creatinine Glucose POC Glucose Ferritin Lactate Dehydrogenase C-Reactive Protein Total Protein Albumin Arterial Blood Glucose Ur Specific [place] 1.031 H Urine WBC (Auto) 8.0 H 03/04/20 03/04/20 03/05/20 02:59 16:16 04:00 WBC RBC Hgb Hct RDW Lymph % (Auto) Seg Neutrophils % Seg Neuts % (Manual) Lymphocytes % (Manual) Seg Neutrophils # Seg Neutrophils # Man Lymphocytes # (Manual) PT INR D-Dimer ABG pH 7.451 H 7.498 H POC ABG pCO2 POC ABG pO2 ABG pO2 102.9 H 122.7 H ABG HCO3 ABG O2 Saturation ABG Hemoglobin 12.7 L 10.2 L ABG Potassium ABG Chloride ABG Glucose Sodium 152 H Potassium Chloride 116.9 H Carbon Dioxide BUN 27 H Creatinine 0.4 L Glucose 127 H POC Glucose Ferritin Lactate Dehydrogenase C-Reactive Protein Total Protein Albumin Arterial Blood Glucose Ur Specific [place] Urine WBC (Auto) 03/05/20 03/05/20 03/05/20 05:32 05:32 18:05 WBC 17.4 H RBC 3.35 L Hgb 10.3 L Hct 31.4 L RDW 17.2 H Lymph % (Auto) 10.9 L Seg Neutrophils % 85.3 H Seg Neuts % (Manual) Lymphocytes % (Manual) Seg Neutrophils # 14.8 H Seg Neutrophils # Man Lymphocytes # (Manual) PT INR D-Dimer ABG pH POC ABG pCO2 POC ABG pO2 ABG pO2 ABG HCO3 ABG O2 Saturation ABG Hemoglobin ABG Potassium ABG Chloride ABG Glucose Sodium 150 H 146 H Potassium 3.4 L Chloride 115.0 H 113.7 H Carbon Dioxide 20 L BUN 29 H Creatinine 0.5 L 0.3 L Glucose POC Glucose Ferritin Lactate Dehydrogenase C-Reactive Protein Total Protein Albumin Arterial Blood Glucose Ur Specific [place] Urine WBC (Auto) 03/06/20 03/06/2003/06/20 04:16 04:16 05:50 WBC 11.2 H RBC 3.05 L Hgb 9.2 L Hct 28.2 L RDW 16.8 H Lymph % (Auto) Seg Neutrophils % 80.0 H Seg Neuts % (Manual) Lymphocytes % (Manual) Seg Neutrophils # 9.0 H Seg Neutrophils # Man Lymphocytes # (Manual) PT INR D-Dimer ABG pH POC ABG pCO2 POC ABG pO2 ABG pO2 194.8 H ABG HCO3 ABG O2 Saturation 99.3 H ABG Hemoglobin 9.2 L ABG Potassium ABG Chloride ABG Glucose Sodium 146 H Potassium 3.1 L Chloride 111.3 H Carbon Dioxide BUN Creatinine 0.4 L Glucose POC Glucose Ferritin Lactate Dehydrogenase C-Reactive Protein Total Protein Albumin Arterial Blood Glucose Ur Specific [place] Urine WBC (Auto) 03/07/20 03/07/20 03/07/20 02:54 05:47 06:03 WBC RBC 3.21 L Hgb 9.8 L Hct 28.6 L RDW 16.6 H Lymph % (Auto) Seg Neutrophils % 80.1 H Seg Neuts % (Manual) Lymphocytes % (Manual) Seg Neutrophils # 7.8 H Seg Neutrophils # Man Lymphocytes # (Manual) PT INR D-Dimer ABG pH 7.504 H POC ABG pCO2 30.5 L POC ABG pO2 ABG pO2 ABG HCO3 ABG O2 Saturation ABG Hemoglobin 10.4 L ABG Potassium 2.7 L ABG Chloride 109.0 H ABG Glucose Sodium Potassium Chloride Carbon Dioxide BUN Creatinine Glucose POC Glucose 126 H Ferritin Lactate Dehydrogenase C-Reactive Protein Total Protein Albumin Arterial Blood Glucose Ur Specific [place] Urine WBC (Auto) 03/07/20 03/07/20 03/07/20 06:03 17:22 17:25 WBC RBC Hgb Hct RDW Lymph % (Auto) Seg Neutrophils % Seg Neuts % (Manual) Lymphocytes % (Manual) Seg Neutrophils # Seg Neutrophils # Man Lymphocytes # (Manual) PT INR D-Dimer ABG pH POC ABG pCO2 POC ABG pO2 ABG pO2 ABG HCO3 ABG O2 Saturation ABG Hemoglobin ABG Potassium ABG Chloride ABG Glucose Sodium Potassium 2.7 L* Chloride 107.6 H Carbon Dioxide 21 L BUN 8 L Creatinine 0.3 L Glucose 129 H POC Glucose 119 H 125 H Ferritin Lactate Dehydrogenase C-Reactive Protein Total Protein Albumin Arterial Blood Glucose Ur Specific [place] Urine WBC (Auto) 03/07/20 03/08/20 03/08/20 23:30 04:30 16:56 WBC RBC Hgb Hct RDW Lymph % (Auto) Seg Neutrophils % Seg Neuts % (Manual) Lymphocytes % (Manual) Seg Neutrophils # Seg Neutrophils # Man Lymphocytes # (Manual) PT INR D-Dimer ABG pH 7.513 H POC ABG pCO2 POC ABG pO2 ABG pO2 170.6 H ABG HCO3 ABG O2 Saturation 99.2 H ABG Hemoglobin 8.8 L ABG Potassium ABG Chloride ABG Glucose Sodium Potassium Chloride Carbon Dioxide BUN Creatinine Glucose POC Glucose 107 H 108 H Ferritin Lactate Dehydrogenase C-Reactive Protein Total Protein Albumin Arterial Blood Glucose Ur Specific [place] Urine WBC (Auto) 03/08/20 03/09/20 03/09/20 21:07 04:17 11:08 WBC RBC Hgb Hct RDW Lymph % (Auto) Seg Neutrophils % Seg Neuts % (Manual) Lymphocytes % (Manual) Seg Neutrophils # Seg Neutrophils # Man Lymphocytes # (Manual) PT INR D-Dimer ABG pH 7.498 H POC ABG pCO2 POC ABG pO2 125.5 H ABG pO2 ABG HCO3 ABG O2 Saturation ABG Hemoglobin ABG Potassium ABG Chloride 109.0 H ABG Glucose 103 H Sodium Potassium Chloride 109.4 H Carbon Dioxide BUN 6 L Creatinine 0.3 L Glucose 121 H POC Glucose 123 H Ferritin Lactate Dehydrogenase C-Reactive Protein Total Protein Albumin 2.8 L Arterial Blood Glucose 103 H Ur Specific [place] Urine WBC (Auto) 03/10/20 03/10/20 03/10/20 04:46 08:10 08:10 WBC RBC Hgb 9.5 L Hct 28.6 L RDW Lymph % (Auto) Seg Neutrophils % Seg Neuts % (Manual) Lymphocytes % (Manual) Seg Neutrophils # Seg Neutrophils # Man Lymphocytes # (Manual) PT INR D-Dimer ABG pH 7.533 H POC ABG pCO2 POC ABG pO2 128.2 H ABG pO2 ABG HCO3 ABG O2 Saturation ABG Hemoglobin 10.0 L ABG Potassium ABG Chloride ABG Glucose 110 H Sodium Potassium Chloride Carbon Dioxide BUN 5 L Creatinine 0.2 L Glucose POC Glucose Ferritin Lactate Dehydrogenase C-Reactive Protein Total Protein Albumin Arterial Blood Glucose 110 H Ur Specific [place] Urine WBC (Auto) 1203/10/20 03/11/20 17:22 23:24 05:07 WBC RBC Hgb Hct RDW Lymph % (Auto) Seg Neutrophils % Seg Neuts % (Manual) Lymphocytes % (Manual) Seg Neutrophils # Seg Neutrophils # Man Lymphocytes # (Manual) PT INR D-Dimer ABG pH POC ABG pCO2 POC ABG pO2 ABG pO2 ABG HCO3 ABG O2 Saturation ABG Hemoglobin ABG Potassium ABG Chloride ABG Glucose Sodium Potassium Chloride Carbon Dioxide BUN Creatinine Glucose POC Glucose 108 H 189 H 217 H Ferritin Lactate Dehydrogenase C-Reactive Protein Total Protein Albumin Arterial Blood Glucose Ur Specific [place] Urine WBC (Auto) 03/11/20 03/11/20 03/12/20 11:28 23:25 05:14 WBC RBC Hgb Hct RDW Lymph % (Auto) Seg Neutrophils % Seg Neuts % (Manual) Lymphocytes % (Manual) Seg Neutrophils # Seg Neutrophils # Man Lymphocytes # (Manual) PT INR D-Dimer ABG pH POC ABG pCO2 POC ABG pO2 ABG pO2 ABG HCO3 ABG O2 Saturation ABG Hemoglobin ABG Potassium ABG Chloride ABG Glucose Sodium Potassium Chloride Carbon Dioxide BUN Creatinine Glucose POC Glucose 212 H 152 H 193 H Ferritin Lactate Dehydrogenase C-Reactive Protein Total Protein Albumin Arterial Blood Glucose Ur Specific [place] Urine WBC (Auto) 03/12/20 11:58 WBC RBC Hgb Hct RDW Lymph % (Auto) Seg Neutrophils % Seg Neuts % (Manual) Lymphocytes % (Manual) Seg Neutrophils # Seg Neutrophils # Man Lymphocytes # (Manual) PT INR D-Dimer ABG pH POC ABG pCO2 POC ABG pO2 ABG pO2 ABG HCO3 ABG O2 Saturation ABG Hemoglobin ABG Potassium ABG Chloride ABG Glucose Sodium Potassium Chloride Carbon Dioxide BUN Creatinine Glucose POC Glucose 142 H Ferritin Lactate Dehydrogenase C-Reactive Protein Total Protein Albumin Arterial Blood Glucose Ur Specific [place] Urine WBC (Auto) Allied health notes reviewed: nursing
[2020-03-12] MEDS: ENOXAPARIN 40 MG/0.4 ML INJ SUB-Q SCH (21:15)
[2020-03-12] MEDS: QUEtiapine 100 MG TAB PO SCH (21:15)
[2020-03-13] MEDS: methylPREDNISolone Sod Succinate 125 MG/2 ML INJ IV SCH ×3 (05:20→22:30)
[2020-03-13] MEDS: BUDESONIDE 0.5 MG/2 ML NEBU IH SCH ×2 (07:20→19:47)
[2020-03-13] MEDS: ARFORMOTEROL 15 MCG/2 ML NEBU IH SCH ×2 (07:20→19:48)
[2020-03-13] MEDS: IPRATROPIUM/ALBUTEROL SULFATE 3 ML AMPUL.NEB IH SCH ×3 (07:20→19:47)
--- NOTE | 2020-03-13 08:33 | Progress Note ---
Assessment and Plan Assessment and plan: --PUI; COVID-19 test negative on 03/04/2020 --acute on chronic hypoxic respiratory failure; Patient has chronic tracheostomy now on ventilatory support Continue nebulizers wean off ventilator as tolerated . Pulmonary critical following. --MRSA pneumonia; respiratory and contact isolation Vancomycin, --Bilateral pneumonia; Continue current antibiotics, follow cultures Ventilatory support, pulmonary and ID following --Severe hypokalemia; resolved Closely monitor lecture lites --Hypernatremia; resolved Gentle hydration supportive care --Sepsis secondary to bilateral pneumonia/UTI Continue current antibiotics, follow cultures, ID following --Severe malnutrition; hypoalbuminemia Supportive care, nutrition consult --DVT prophylaxis;Lovenox --Restrain the patient for agitation --Full CODE STATUS; We will closely monitor the patient and adjust the management as needed The high probability of a clinically significant, sudden or life threatening deterioration of the [respiratory, metabolic and infectious disease] system(s) required my full and direct attention, intervention and personal management. The aggregate critical care time was [33] minutes. This time is in addition to time spent performing reported procedures but includes the following: [x] Data Review and interpretation [x] Patient assessment and monitoring of vital signs [x] Documentation [x] Medication orders and management 03/05/2020 -Patient is admitted for acute on chronic respiratory failure and currently on and requiring mechanical ventilation. Continue with IV antibiotics for UTI and sepsis. COVID-19 test is done and is negative. Pathology Laboratory Technologist consulted. Continue with the current management. 03/06/2020 -Patient is admitted for acute on chronic respiratory failure. Patient is on trach and vent. Patient is on IV cefepime and vancomycin per ID recommendation. Pulmonary consulted for vent and trach management. 03/07/2020; continue ventilatory support Wean off vent as tolerated, consults and recommendations noted and appreciated 03/08/2020; We will closely monitor the patient and adjust the management as needed Plan of care reviewed with the patient and his nurse MRSA pneumonia, vancomycin, contact isolation 03/09/2020; patient remains on ventilatory support, on IV antibiotics Wean off vent as tolerated, universal branch consultant recommendations noted and appreciated Plan of care reviewed with the patient's nurse and case management 03/10/2020; chest x-ray mild improvement, remains on ventilatory support, wean off ventilator as tolerated Contact isolation for MRSA pneumonia, continue vancomycin 03/11/2020; patient remains on ventilatory support, MRSA pneumonia on vancomycin for total 8 days and de-escalate to Bactrim DS Per ID recommendations. Contact isolation, restraint for agitation as needed 03/12/2020; we will wean off ventilator as tolerated , patient is more alert and awake today Tracheostomy on vent, on contact isolation MRSA on vancomycin, will follow consultants recommendations 03/13/2020; patient completed 8 days of vancomycin, remains on ventilatory support, will wean off ventilator as tolerated We will restrain restraint patient as needed History Interval history: I have seen and examined the patient at the bedside in ICU this morning Patient is in contact isolation for MRSA pneumonia Chronic tracheostomy on ventilatory support Patient is alert and awake Vital signs noted Hospitalist Physical - Constitutional Vitals: Temp Pulse Resp BP Pulse Ox 98.2 F 78 24 111/73 100 03/13/20 03:23 03/13/20 07:20 03/13/20 07:20 03/13/20 07:20 03/13/20 07:20 General appearance: Present: no acute distress, cachectic, disheveled, other (Tracheostomy, on ventilatory support) - EENT Eyes: Present: PERRL, EOM intact - Neck Neck: Present: supple, normal ROM, other (Tracheostomy) - Respiratory Respiratory effort: normal Respiratory: bilateral: diminished, rhonchi, negative: rales, wheezing - Cardiovascular Rhythm: regular Heart Sounds: Present: S1 & S2 - Extremities Extremities: no ischemia, No edema - Abdominal General gastrointestinal: soft, non-tender, non-distended, normal bowel sounds - Integumentary Integumentary: Present: clear, warm - Psychiatric Psychiatric: appropriate mood/affect, cooperative - Neurologic Neurologic: moves all extremities Results - Labs CBC & Chem 7: 03/10/20 08:10 03/10/20 08:10 Labs: Laboratory Last Values WBC 9.8 K/mm3 (4.5-11.0) 03/07/20 06:03 RBC 3.21 M/mm3 (3.65-5.03) L 03/07/20 06:03 Hgb 9.5 gm/dl (11.8-15.2) L 03/10/20 08:10 Hct 28.6 % (35.5-45.6) L 03/10/20 08:10 MCV 89 fl (84-94) 03/07/20 06:03 MCH 31 pg (28-32) 03/07/20 06:03 MCHC 34 % (32-34) 03/07/20 06:03 RDW 16.6 % (13.2-15.2) H 03/07/20 06:03 Plt Count 188 K/mm3 (140-440) 03/07/20 06:03 Lymph % (Auto) 13.7 % (13.4-35.0) 03/07/20 06:03 Casey % (Auto) 5.4 % (0.0-7.3) 03/07/20 06:03 Eos % (Auto) 0.5 % (0.0-4.3) 03/07/20 06:03 Baso % (Auto) 0.3 % (0.0-1.8) 03/07/20 06:03 Lymph # (Auto) 1.3 K/mm3 (1.2-5.4) 03/07/20 06:03 Casey # (Auto) 0.5 K/mm3 (0.0-0.8) 03/07/20 06:03 Eos # (Auto) 0.0 K/mm3 (0.0-0.4) 03/07/20 06:03 Baso # (Auto) 0.0 K/mm3 (0.0-0.1) 03/07/20 06:03 Add Manual Diff Complete 03/04/20 02:59 Total Counted 100 03/04/20 02:59 Seg Neutrophils % 80.1 % (40.0-70.0) H 03/07/20 06:03 Seg Neuts % (Manual) 93.0 % (40.0-70.0) H 03/04/20 02:59 Band Neutrophils % 0 % 03/04/20 02:59 Lymphocytes % (Manual) 5.0 % (13.4-35.0) L 03/04/20 02:59 Reactive Lymphs % (Man) 0 % 03/04/20 02:59 Monocytes % (Manual) 2.0 % (0.0-7.3) 03/04/20 02:59 Eosinophils % (Manual) 0 % (0.0-4.3) 03/04/20 02:59 Basophils % (Manual) 0 % (0.0-1.8) 03/04/20 02:59 Metamyelocytes % 0 % 03/04/20 02:59 Myelocytes % 0 % 03/04/20 02:59 Promyelocytes % 0 % 03/04/20 02:59 Blast Cells % 0 % 03/04/20 02:59 Nucleated RBC % Not Reportable 03/04/20 02:59 Seg Neutrophils # 7.8 K/mm3 (1.8-7.7) H 03/07/20 06:03 Seg Neutrophils # Man 14.1 K/mm3 (1.8-7.7) H 03/04/20 02:59 Band Neutrophils # 0.0 K/mm3 03/04/20 02:59 Lymphocytes # (Manual) 0.8 K/mm3 (1.2-5.4) L 03/04/20 02:59 Abs React Lymphs (Man) 0.0 K/mm3 03/04/20 02:59 Monocytes # (Manual) 0.3 K/mm3 (0.0-0.8) 03/04/20 02:59 Eosinophils # (Manual) 0.0 K/mm3 (0.0-0.4) 03/04/20 02:59 Basophils # (Manual) 0.0 K/mm3 (0.0-0.1) 03/04/20 02:59 Metamyelocytes # 0.0 K/mm3 03/04/20 02:59 Myelocytes # 0.0 K/mm3 03/04/20 02:59 Promyelocytes # 0.0 K/mm3 03/04/20 02:59 Blast Cells # 0.0 K/mm3 03/04/20 02:59 WBC Morphology Not Reportable 03/04/20 02:59 Hypersegmented Neuts Not Reportable 03/04/20 02:59 Hyposegmented Neuts Not Reportable 03/04/20 02:59 Hypogranular Neuts Not Reportable 03/04/20 02:59 Smudge Cells Not Reportable 03/04/20 02:59 Toxic Granulation Not Reportable 03/04/20 02:59 Toxic Vacuolation Not Reportable 03/04/20 02:59 Dohle Bodies Not Reportable 03/04/20 02:59 Pelger-Huet Anomaly Not Reportable 03/04/20 02:59 Mike Rods Not Reportable 03/04/20 02:59 Platelet Estimate Consistent w auto 03/04/20 02:59 Clumped Platelets Not Reportable 03/04/20 02:59 Plt Clumps, EDTA Not Reportable 03/04/20 02:59 Large Platelets Not Reportable 03/04/20 02:59 Giant Platelets Not Reportable 03/04/20 02:59 Platelet Satelliting Not Reportable 03/04/20 02:59 Plt Morphology Comment Not Reportable 03/04/20 02:59 RBC Morphology Not Reportable 03/04/20 02:59 Dimorphic RBCs Not Reportable 03/04/20 02:59 Polychromasia Not Reportable 03/04/20 02:59 Hypochromasia Few 03/04/20 02:59 Poikilocytosis Not Reportable 03/04/20 02:59 Anisocytosis Few 03/04/20 02:59 Microcytosis Not Reportable 03/04/20 02:59 Macrocytosis Not Reportable 03/04/20 02:59 Spherocytes Not Reportable 03/04/20 02:59 Pappenheimer Bodies Not Reportable 03/04/20 02:59 Sickle Cells Not Reportable 03/04/20 02:59 Target Cells Not Reportable 03/04/20 02:59 Tear Drop Cells Not Reportable 03/04/20 02:59 Ovalocytes Not Reportable 03/04/20 02:59 Helmet Cells Not Reportable 03/04/20 02:59 [place] Bodies Not Reportable 03/04/20 02:59 Spalding Rings Not Reportable 03/04/20 02:59 Marcos Cells Not Reportable 03/04/20 02:59 Bite Cells Not Reportable 03/04/20 02:59 Crenated Cell Not Reportable 03/04/20 02:59 Elliptocytes Not Reportable 03/04/20 02:59 Acanthocytes (Spur) Not Reportable 03/04/20 02:59 Rouleaux Not Reportable 03/04/20 02:59 Hemoglobin C Crystals Not Reportable 03/04/20 02:59 Schistocytes Not Reportable 03/04/20 02:59 Malaria parasites Not Reportable 03/04/20 02:59 Branden Bodies Not Reportable 03/04/20 02:59 Hem Pathologist Commnt No 03/04/20 02:59 PT 15.9 Sec. (12.2-14.9) H 03/04/20 02:59 INR 1.29 (0.87-1.13) H 03/04/20 02:59 D-Dimer 1415.56 ng/mlDDU (0-234) H 03/03/20 22:00 ABG pH 7.533 (7.320-7.450) H 03/10/20 04:46 POC ABG pCO2 34.1 mmHg (32.0-48.0) 03/10/20 04:46 ABG pCO2 31.0 mm Hg 03/08/20 04:30 POC ABG pO2 128.2 mmHg (83-108) H 03/10/20 04:46 ABG pO2 170.6 mm Hg (80.0-90.0) H 03/08/20 04:30 POC ABG HCO3 28 03/10/20 04:46 ABG HCO3 24.3 mmol/L (20.0-26.0) 03/08/20 04:30 ABG O2 Saturation 99.2 % (95.0-99.0) H 03/08/20 04:30 ABG O2 Content 12.4 (0.0-44) 03/08/20 04:30 POC ABG Base Excess 5.3 03/10/20 04:46 ABG Base Excess 1.6 mmol/L (-2.0-3.0) 03/08/20 04:30 ABG Hemoglobin 10.0 (12.0-17.5) L 03/10/20 04:46 ABG Carboxyhemoglobin 1.0 % (0.0-5.0) 03/08/20 04:30 ABG Methemoglobin 0.4 % (0.0-1.5) 03/08/20 04:30 ABG Sodium 137.7 mmol/L (136.0-145.0) 03/10/20 04:46 ABG Potassium 3.6 mmol/L (3.40-4.50) 03/10/20 04:46 ABG Chloride 107.0 mmol/L (98-107) 03/10/20 04:46 ABG Glucose 110 mg/dL (65-95) H 03/10/20 04:46 Oxyhemoglobin 97.7 % (95.0-99.0) 03/08/20 04:30 FiO2 28 03/10/20 04:46 Sodium 140 mmol/L (137-145) 03/10/20 08:10 Potassium 3.7 mmol/L (3.6-5.0) 03/10/20 08:10 Chloride 106.8 mmol/L (98-107) 03/10/20 08:10 Carbon Dioxide 27 mmol/L (22-30) 03/10/20 08:10 Anion Gap 10 mmol/L 03/10/20 08:10 BUN 5 mg/dL (9-20) L 03/10/20 08:10 Creatinine 0.2 mg/dL (0.8-1.3) L 03/10/20 08:10 Estimated GFR > 60 ml/min 03/10/20 08:10 BUN/Creatinine Ratio 25 % 03/10/20 08:10 Glucose 84 mg/dL (75-100) 03/10/20 08:10 POC Glucose 184 mg/dL (70-105) H 03/13/20 05:33 Lactic Acid 0.80 mmol/L (0.7-2.0) 03/04/20 02:59 Calcium 8.8 mg/dL (8.4-10.2) 03/10/20 08:10 Magnesium 2.00 mg/dL (1.7-2.3) 03/08/20 21:07 Ferritin 522.1 ng/mL (30.0-300.0) H 03/03/20 22:00 Total Bilirubin 0.20 mg/dL (0.1-1.2) 03/08/20 21:07 AST 19 units/L (5-40) 03/08/20 21:07 ALT 22 units/L (7-56) 03/08/20 21:07 Alkaline Phosphatase 86 units/L (35-129) 03/08/20 21:07 Lactate Dehydrogenase 240 units/L (91-180) H 03/03/20 22:00 C-Reactive Protein 17.20 mg/dL (0.00-1.30) H 03/03/20 22:00 Total Protein 6.9 g/dL (6.3-8.2) D 03/08/20 21:07 Albumin 2.8 g/dL (3.9-5) L 03/08/20 21:07 Albumin/Globulin Ratio 0.7 % 03/08/20 21:07 Procalcitonin 0.31 ng/mL (<0.15) 03/03/20 22:00 Arterial Blood Glucose 110 mg/dL (65-95) H 03/10/20 04:46 Arterial Blood Ionized Calcium 4.6 mg/dL (4.6-5.3) 03/10/20 04:46 Urine Color Bing (Yellow) 03/03/20 22:15 Urine Turbidity Clear (Clear) 03/03/20 22:15 Urine pH 5.0 (5.0-7.0) 03/03/20 22:15 Ur Specific [place] 1.031 (1.003-1.030) H 03/03/20 22:15 Urine Protein 30 mg/dl mg/dL (Negative) 03/03/20 22:15 Urine Glucose (UA) Neg mg/dL (Negative) 03/03/20 22:15 Urine Ketones Neg mg/dL (Negative) 03/03/20 22:15 Urine Blood Neg (Negative) 03/03/20 22:15 Urine Nitrite Neg (Negative) 03/03/20 22:15 Urine Bilirubin Neg (Negative) 03/03/20 22:15 Urine Urobilinogen 4.0 mg/dL (<2.0) 03/03/20 22:15 Ur Leukocyte Esterase Tr (Negative) 03/03/20 22:15 Urine WBC (Auto) 8.0 /HPF (0.0-6.0) H 03/03/20 22:15 Urine RBC (Auto) 2.0 /HPF (0.0-6.0) 03/03/20 22:15 U Epithel Cells (Auto) 1.0 /HPF (0-13.0) 03/03/20 22:15 Urine Bacteria (Auto) 1+ /HPF (Negative) 03/03/20 22:15 Hyaline Casts 1 /LPF 03/03/20 22:15 Urine Mucus 1+ /HPF 03/03/20 22:15 Vancomycin Trough 9.0 ug/mL (5.0-20.0) 03/06/20 20:15 Coronavirus (PCR) Negative (Negative) 03/04/20 09:16 Sarah/IV: Voiding Method Condom Catheter IV Catheter Type [Right Upper INT / Saline Lock arm] IV Catheter Type [Left Upper Mid-line arm] IV Catheter Type [Right Peripheral IV Forearm] Active Medications - Current Medications Current Medications: Generic Name Dose Route Start Last Admin Trade Name Freq PRN Reason Stop Dose Admin Albuterol/Ipratropium 1 ampul 03/12/20 08:00 03/13/20 07:20 Duoneb *Not For Prn Use* IH 1 ampul TIDRT KESHAWN Administration Lipase/Protease/Amylase 1 each 03/06/20 14:54 Pancreирина Cheney 10,500 Unit FEEDTUBE PRN PRN For Clogged Feeding Tube Arformoterol Tartrate 15 mcg 03/10/20 20:00 03/13/20 07:20 Brovana Nebu IH 15 mcg Q12HRT KESHAWN Administration Budesonide 0.5 mg 03/10/20 20:00 03/13/20 07:20 Pulmicort IH 0.5 mg Q12HRT KESHAWN Administration Enoxaparin Sodium 40 mg 03/04/20 22:00 03/12/20 21:15 Enoxaparin SUB-Q 40 mg QDAY@2200 [facility] Administration Protocol Famotidine 20 mg 03/09/20 11:00 03/12/20 21:15 Pepcid FEEDTUBE 20 mg BID KESHAWN Administration Hydrophilic Ointment 1 applic 03/03/20 22:31 03/06/20 08:19 Vaseline Lip Therapy TP 1 applic Q2HR PRN Administration Dry Lips Lorazepam 1 mg 03/08/20 23:42 03/11/20 22:06 Ativan IV 1 mg Q4H PRN Administration Agitation Magnesium Hydroxide 30 ml 03/03/20 23:45 Milk Of Magnesia PO Q4H PRN Constipation Methylprednisolone Sodium Succinate 60 mg 03/10/20 16:00 03/13/20 05:20 Solu-Medrol IV 60 mg Q8HR KESHAWN Administration Morphine Sulfate 2 mg 03/03/20 23:45 03/12/20 11:25 Morphine IV 2 mg Q4H PRN Administration Pain, Moderate (4-6) Multi-Ingred Cream/Lotion/Oil/Oint 1 applic 03/03/20 22:31 Artificial Tears Ophth Oint OU Q4HR PRN Dry Eye(s) Ondansetron HCl 4 mg 03/03/20 23:45 03/05/20 16:12 Zofran IV 4 mg Q8H PRN Administration Nausea And Vomiting Quetiapine Fumarate 100 mg 03/12/20 22:00 03/12/20 21:15 Seroquel PO 100 mg BID KESHAWN Administration Simethicone 80 mg 03/11/20 09:39 03/11/20 11:06 Mylicon PO 80 mg Q6H PRN Administration Gas pain Simple Syrup 15 ml 03/06/20 14:54 Simple Syrup FEEDTUBE PRN PRN Hypoglycemia Simple Syrup 30 ml 03/06/20 14:54 Simple Syrup FEEDTUBE PRN PRN Hypoglycemia Sodium Bicarbonate 325 mg 03/06/20 14:54 Sodium Bicarbonate FEEDTUBE PRN PRN For Clogged Feeding Tube Sodium Chloride 10 ml 03/04/20 10:00 03/12/20 21:16 Sodium Chloride Flush Syringe 10 Ml IV 10 ml BID KESHAWN Administration Sodium Chloride 10 ml 03/03/20 23:45 Sodium Chloride Flush Syringe 10 Ml IV PRN PRN LINE FLUSH Nutrition/Malnutrition Assess - Dietary Evaluation Nutrition/Malnutrition Findings: Nutrition Notes Start: 03/04/20 09:15 Freq: Status: Active Protocol: Document 03/09/20 11:42 EN (Rec: 03/09/20 11:46 EN [id number]) Co-Sign 03/09/20 11:42 Nutrition Notes Initial or Follow up Reassessment Current Diagnosis Sepsis,Hypertension, Respiratory Failure Other Pertinent Diagnosis Bilat pneu, sacral wound, TBI Current Diet Osmolite 1.5 at 60 ml/hr Labs/Tests Reviewed Pertinent Medications Reviewed Height 6 ft 3 in Weight 63.4 kg [place] Body Weight (kg) 89.09 BMI 17.4 Weight Status Underweight Subjective/Other Information F/u for TF tolerance, vent status and diarrhea. Pt remains on vent. Per RN, pt tolerating TF at goal rate and stool is no longer watery. Percent of energy/protein needs met: 97%/100% Burn Absent Trauma Absent GI Symptoms None Current % PO Negligible Minimum of two criteria No Reduced Digester Hand Strength Measurably Reduced (severe) #2 Nutrition Diagnosis Increased nutrient needs ( specify in comment below) Comments: Protein Etiology wound healing As Evidenced by Signs and Symptoms Sacral wound #1 Nutrition Diagnosis Inadequate oral intake Diagnosis Progress(for reassessment Continues documentation) Is patient on ventilator? Yes Is Patient Ambulatory and/or Out of Bed No REE-([place] Jeor-confined to bed) 1816.932 Kcal/Kg value to use for calculation 35 Approximate Energy Requirements Using 2219 kcal/Kg Calculation Used for Recommendations Kcal/kg Additional Notes Pro needs 1.25-2g/k-127g/ day Fluid needs 1ml/kcal Nutrition Intervention Change Diet Order: Continue current TF Nutrition Support: Osmolite 1.5 at 60ml/hr with 175ml water flush q4h. Kcal 2,160 Protein (gm) 90 Fluid (mL) 1,097 Goal #1 TF tolerance Goal #2 TF (at goal rate) to meet 100% energy and pro needs Goal #3 Wt maintenance and/or gain Goal #4 Wound healing Anticipated Discharge Needs: Continue TF Follow-Up By: 03/14/20 Additional Comments F/u for TF tolerance
[2020-03-13] MEDS: FAMOTIDINE 20 MG TAB FEEDTUBE SCH ×2 (09:31→22:30)
[2020-03-13] MEDS: QUEtiapine 100 MG TAB PO SCH ×2 (09:31→22:30)
[2020-03-13] MEDS: SULFAMETHOXAZOLE/TRIMETHOPRIM 200-40 MG/5 ML ORAL LIQD 30 ML PO SCH ×2 (11:29→22:30)
--- NOTE | 2020-03-13 12:36 | Progress Note ---
Assessment and Plan Sepsis, leucocytosis likely secondary to bilateral pneumonia. Acute and chronic hypoxemic respiratory failure, on MVS Chronic tracheostomy Bilateral pneumonia [id number] infection Oropharyngeal dysphagia s/p PEG Chronic indwelling Martinez cather h/o TBI with chronic encephalopathy Hypernatremia - s/p Mid-line - continue Seroquel for sedation / anxiolysis - continue daily SAT's and SBT assessment as tolerated - continue to rest on AC qhs during wean - continue care as below otherwise; - continue Brovana & Pulmicort re: COPD - continue empiric steroids re: COPD exacerbation - continue contact isolation for MRSA - continue accuchecks with glycemic control per SSI (While critically ill target blood glucose of 140-180 mg/dL; avoid hypoglycemia) - sedation prn for target RASS 0 to -1 - continue to wean supplemental oxygen for target O2 sat's > 92% acutely - VAP bundle addressed - continue lung protective strategies - continue bronchodilators with pulmonary hygiene per RT - wean per pulmonary driven protocols otherwise - Free water via PEG tube for hypernatremia - Chronic martinez, catheter care - avoid nephrotoxins, renally dose all medications - continue to avoid benzodiazepine's, reduce the possibility of delirium - complete AB's per ID rec's, follow cultures and de-escalate as indicated (treat empirically for HAP; on Cefepime and Vancomycin) - prn analgesia per CPOT score - Maintenance of sleep-wake cycle, avoid delirium - continue enteral nutritional support at goal rate as tolerated - G.I. & VTE prophylaxis with Famotidine and enoxaparin - PT/OT/ROM exercises - continue mobility protocols for pressure ulcer prophylaxis - Monitor hemodynamics closely - continue other care per attending / other consultants - discharge planning ongoing concurrently .... Re-evaluate in am & prn CONDITION: CRITICAL PROGNOSIS: GUARDED CODE STATUS: FULL CODE The high probability of a clinically significant, sudden or life-threatening deterioration of the [cardiac, respiratory & neurologic] system(s) required my full and direct attention, intervention and personal management. The aggregate critical care time was [33] minutes without overlap. Time includes spent on; [x] Data Review and interpretation [x] Patient assessment and monitoring of vital signs [x] Documentation [x] Medication orders and management Subjective Date of service: 03/13/20 Principal diagnosis: Severe Sepsis; PNA; Ac on ch hypoxemic resp failure; PU I-COVID-19 Interval history: Patient is seen today for: Severe Sepsis; Pneumonia; Acute on chronic hypoxemic respiratory failure; Chronic tracheostomy; [id number] infection; h/o TBI with chronic encephalopathy; Hypernatremia Seen and examined at bedside; 24hour events reviewed; nursing and respiratory care staff consulted; no adverse overnight events reported to me; resting peacefully in bed; getting cleaned by RN/SOCIAL WORK ASSOCIATE; on PSV with p-supp at 20 and still weaning tenuously Objective Vital Signs - 12hr 03/13/20 03/13/20 03/13/20 01:00 02:00 03:00 Temperature Pulse Rate 56 L 81 62 Pulse Rate [ Anterior Bilateral Throughout] Pulse Rate [ From Monitor] Respiratory 19 19 22 Rate Respiratory Rate [Anterior Bilateral Throughout] Blood Pressure 110/68 110/68 117/62 O2 Sat by Pulse 100 99 100 Oximetry O2 Sat by Pulse Oximetry [ Assessment] 03/13/20 03/13/20 03/13/20 03:23 04:00 04:58 Temperature 98.2 F Pulse Rate 76 65 Pulse Rate [ Anterior Bilateral Throughout] Pulse Rate [ 53 L From Monitor] Respiratory 18 Rate Respiratory Rate [Anterior Bilateral Throughout] Blood Pressure 120/78 120/78 O2 Sat by Pulse 99 100 Oximetry O2 Sat by Pulse 100 Oximetry [ Assessment] 03/13/20 03/13/20 03/13/20 05:00 06:00 07:00 Temperature Pulse Rate 64 69 69 Pulse Rate [ Anterior Bilateral Throughout] Pulse Rate [ From Monitor] Respiratory 19 13 14 Rate Respiratory Rate [Anterior Bilateral Throughout] Blood Pressure 128/73 128/73 111/73 O2 Sat by Pulse 100 99 97 Oximetry O2 Sat by Pulse Oximetry [ Assessment] 03/13/20 03/13/20 03/13/20 07:20 08:00 09:00 Temperature Pulse Rate 68 80 74 Pulse Rate [ 78 Anterior Bilateral Throughout] Pulse Rate [ 76 From Monitor] Respiratory 17 21 Rate Respiratory 24 Rate [Anterior Bilateral Throughout] Blood Pressure 111/73 158/80 158/80 O2 Sat by Pulse 98 100 100 Oximetry O2 Sat by Pulse 100 Oximetry [ Assessment] 03/13/20 03/13/20 03/13/20 10:00 11:00 11:41 Temperature Pulse Rate 71 82 65 Pulse Rate [ Anterior Bilateral Throughout] Pulse Rate [ From Monitor] Respiratory 15 19 20 Rate Respiratory Rate [Anterior Bilateral Throughout] Blood Pressure 119/69 110/65 100/65 O2 Sat by Pulse 100 100 99 Oximetry O2 Sat by Pulse Oximetry [ Assessment] Constitutional: no acute distress, other (elderly thin male with mildly increased respiratory effort at rest on MVS) Eyes: non-icteric ENT: oropharynx moist, other (+ midline Shiley tracheostomy) Neck: supple, no lymphadenopathy, no JVD Effort: mildly labored Ascultation: Bilateral: diminished breath sounds, rhonchi, other (prolonged exp phase) Percussion: Bilateral: not dull Cardiovascular: regular rate and rhythm, other (S1,S2) Gastrointestinal: normoactive bowel sounds, soft, non-tender, non-distended, other (PEG in place) Integumentary: normal Extremities: no cyanosis, no edema, pulses normal Neurologic: pupils equal and round, CN II-XII normal, unable to assess, other (RUExt weakness) Psychiatric: mood appropriate, affect normal CBC and BMP: 03/14/20 07:08 03/14/20 07:08 ABG, PT/INR, D-dimer: ABG ABG pH 7.533 (7.320-7.450) H 03/10/20 04:46 POC ABG pCO2 34.1 mmHg (32.0-48.0) 03/10/20 04:46 ABG pCO2 31.0 mm Hg 03/08/20 04:30 POC ABG pO2 128.2 mmHg (83-108) H 03/10/20 04:46 ABG pO2 170.6 mm Hg (80.0-90.0) H 03/08/20 04:30 POC ABG HCO3 28 03/10/20 04:46 ABG O2 Saturation 99.2 % (95.0-99.0) H 03/08/20 04:30 PT/INR, D-dimer PT 15.9 Sec. (12.2-14.9) H 03/04/20 02:59 INR 1.29 (0.87-1.13) H 03/04/20 02:59 D-Dimer 1415.56 ng/mlDDU (0-234) H 03/03/20 22:00 Abnormal lab findings: Abnormal Labs 03/03/20 03/03/20 03/03/20 01:10 21:51 21:51 WBC 15.5 H RBC Hgb Hct 35.3 L RDW 17.9 H Lymph % (Auto) 11.6 L Seg Neutrophils % 83.7 H Seg Neuts % (Manual) Lymphocytes % (Manual) Seg Neutrophils # 13.0 H Seg Neutrophils # Man Lymphocytes # (Manual) PT INR D-Dimer ABG pH POC ABG pCO2 POC ABG pO2 ABG pO2 173.4 H ABG HCO3 26.7 H ABG O2 Saturation 99.1 H ABG Hemoglobin 11.6 L ABG Potassium ABG Chloride ABG Glucose Sodium 151 H Potassium Chloride 114.4 H Carbon Dioxide BUN 29 H Creatinine 0.6 L Glucose 116 H POC Glucose Ferritin Lactate Dehydrogenase C-Reactive Protein Total Protein 8.9 H Albumin 2.8 L Arterial Blood Glucose Ur Specific [place] Urine WBC (Auto) 03/03/20 03/03/20 03/03/20 22:00 22:00 22:00 WBC RBC Hgb Hct RDW Lymph % (Auto) Seg Neutrophils % Seg Neuts % (Manual) Lymphocytes % (Manual) Seg Neutrophils # Seg Neutrophils # Man Lymphocytes # (Manual) PT INR D-Dimer 1415.56 H ABG pH POC ABG pCO2 POC ABG pO2 ABG pO2 ABG HCO3 ABG O2 Saturation ABG Hemoglobin ABG Potassium ABG Chloride ABG Glucose Sodium Potassium Chloride Carbon Dioxide BUN Creatinine Glucose 106 H POC Glucose Ferritin 522.1 H Lactate Dehydrogenase 240 H C-Reactive Protein 17.20 H Total Protein Albumin Arterial Blood Glucose Ur Specific [place] Urine WBC (Auto) 03/03/20 03/04/20 03/04/20 22:15 02:59 02:59 WBC 15.2 H RBC 3.56 L Hgb 10.9 L Hct 33.4 L RDW 17.5 H Lymph % (Auto) Seg Neutrophils % Seg Neuts % (Manual) 93.0 H Lymphocytes % (Manual) 5.0 L Seg Neutrophils # Seg Neutrophils # Man 14.1 H Lymphocytes # (Manual) 0.8 L PT 15.9 H INR 1.29 H D-Dimer ABG pH POC ABG pCO2 POC ABG pO2 ABG pO2 ABG HCO3 ABG O2 Saturation ABG Hemoglobin ABG Potassium ABG Chloride ABG Glucose Sodium Potassium Chloride Carbon Dioxide BUN Creatinine Glucose POC Glucose Ferritin Lactate Dehydrogenase C-Reactive Protein Total Protein Albumin Arterial Blood Glucose Ur Specific [place] 1.031 H Urine WBC (Auto) 8.0 H 03/04/20 03/04/20 03/05/20 02:59 16:16 04:00 WBC RBC Hgb Hct RDW Lymph % (Auto) Seg Neutrophils % Seg Neuts % (Manual) Lymphocytes % (Manual) Seg Neutrophils # Seg Neutrophils # Man Lymphocytes # (Manual) PT INR D-Dimer ABG pH 7.451 H 7.498 H POC ABG pCO2 POC ABG pO2 ABG pO2 102.9 H 122.7 H ABG HCO3 ABG O2 Saturation ABG Hemoglobin 12.7 L 10.2 L ABG Potassium ABG Chloride ABG Glucose Sodium 152 H Potassium Chloride 116.9 H Carbon Dioxide BUN 27 H Creatinine 0.4 L Glucose 127 H POC Glucose Ferritin Lactate Dehydrogenase C-Reactive Protein Total Protein Albumin Arterial Blood Glucose Ur Specific [place] Urine WBC (Auto) 03/05/20 03/05/20 03/05/20 05:32 05:32 18:05 WBC 17.4 H RBC 3.35 L Hgb 10.3 L Hct 31.4 L RDW 17.2 H Lymph % (Auto) 10.9 L Seg Neutrophils % 85.3 H Seg Neuts % (Manual) Lymphocytes % (Manual) Seg Neutrophils # 14.8 H Seg Neutrophils # Man Lymphocytes # (Manual) PT INR D-Dimer ABG pH POC ABG pCO2 POC ABG pO2 ABG pO2 ABG HCO3 ABG O2 Saturation ABG Hemoglobin ABG Potassium ABG Chloride ABG Glucose Sodium 150 H 146 H Potassium 3.4 L Chloride 115.0 H 113.7 H Carbon Dioxide 20 L BUN 29 H Creatinine 0.5 L 0.3 L Glucose POC Glucose Ferritin Lactate Dehydrogenase C-Reactive Protein Total Protein Albumin Arterial Blood Glucose Ur Specific [place] Urine WBC (Auto) 03/06/20 03/06/20 03/06/20 04:16 04:16 05:50 WBC 11.2 H RBC 3.05 L Hgb 9.2 L Hct 28.2 L RDW 16.8 H Lymph % (Auto) Seg Neutrophils % 80.0 H Seg Neuts % (Manual) Lymphocytes % (Manual) Seg Neutrophils # 9.0 H Seg Neutrophils # Man Lymphocytes # (Manual) PT INR D-Dimer ABG pH POC ABG pCO2 POC ABG pO2 ABG pO2 194.8 H ABG HCO3 ABG O2 Saturation 99.3 H ABG Hemoglobin 9.2 L ABG Potassium ABG Chloride ABG Glucose Sodium 146 H Potassium 3.1 L Chloride 111.3 H Carbon Dioxide BUN Creatinine 0.4 L Glucose POC Glucose Ferritin Lactate Dehydrogenase C-Reactive Protein Total Protein Albumin Arterial Blood Glucose Ur Specific [place] Urine WBC (Auto) 03/07/20 03/07/20 03/07/20 02:54 05:47 06:03 WBC RBC 3.21 L Hgb 9.8 L Hct 28.6 L RDW 16.6 H Lymph % (Auto) Seg Neutrophils % 80.1 H Seg Neuts % (Manual) Lymphocytes % (Manual) Seg Neutrophils # 7.8 H Seg Neutrophils # Man Lymphocytes # (Manual) PT INR D-Dimer ABG pH 7.504 H POC ABG pCO2 30.5 L POC ABG pO2 ABG pO2 ABG HCO3 ABG O2 Saturation ABG Hemoglobin 10.4 L ABG Potassium 2.7 L ABG Chloride 109.0 H ABG Glucose Sodium Potassium Chloride Carbon Dioxide BUN Creatinine Glucose POC Glucose 126 H Ferritin Lactate Dehydrogenase C-Reactive Protein Total Protein Albumin Arterial Blood Glucose Ur Specific [place] Urine WBC (Auto) 03/07/20 03/07/20 03/07/20 06:03 17:22 17:25 WBC RBC Hgb Hct RDW Lymph % (Auto) Seg Neutrophils % Seg Neuts % (Manual) Lymphocytes % (Manual) Seg Neutrophils # Seg Neutrophils # Man Lymphocytes # (Manual) PT INR D-Dimer ABG pH POC ABG pCO2 POC ABG pO2 ABG pO2 ABG HCO3 ABG O2 Saturation ABG Hemoglobin ABG Potassium ABG Chloride ABG Glucose Sodium Potassium 2.7 L* Chloride 107.6 H Carbon Dioxide 21 L BUN 8 L Creatinine 0.3 L Glucose 129 H POC Glucose 119 H 125 H Ferritin Lactate Dehydrogenase C-Reactive Protein Total Protein Albumin Arterial Blood Glucose Ur Specific [place] Urine WBC (Auto) 03/07/20 03/08/20 03/08/20 23:30 04:30 16:56 WBC RBC Hgb Hct RDW Lymph % (Auto) Seg Neutrophils % Seg Neuts % (Manual) Lymphocytes % (Manual) Seg Neutrophils # Seg Neutrophils # Man Lymphocytes # (Manual) PT INR D-Dimer ABG pH 7.513 H POC ABG pCO2 POC ABG pO2 ABG pO2 170.6 H ABG HCO3 ABG O2 Saturation 99.2 H ABG Hemoglobin 8.8 L ABG Potassium ABG Chloride ABG Glucose Sodium Potassium Chloride Carbon Dioxide BUN Creatinine Glucose POC Glucose 107 H 108 H Ferritin Lactate Dehydrogenase C-Reactive Protein Total Protein Albumin Arterial Blood Glucose Ur Specific [place] Urine WBC (Auto) 03/08/20 03/09/20 03/09/20 21:07 04:17 11:08 WBC RBC Hgb Hct RDW Lymph % (Auto) Seg Neutrophils % Seg Neuts % (Manual) Lymphocytes % (Manual) Seg Neutrophils # Seg Neutrophils # Man Lymphocytes # (Manual) PT INR D-Dimer ABG pH 7.498 H POC ABG pCO2 POC ABG pO2 125.5 H ABG pO2 ABG HCO3 ABG O2 Saturation ABG Hemoglobin ABG Potassium ABG Chloride 109.0 H ABG Glucose 103 H Sodium Potassium Chloride 109.4 H Carbon Dioxide BUN 6 L Creatinine 0.3 L Glucose 121 H POC Glucose 123 H Ferritin Lactate Dehydrogenase C-Reactive Protein Total Protein Albumin 2.8 L Arterial Blood Glucose 103 H Ur Specific [place] Urine WBC (Auto) 03/10/20 03/10/20 03/10/20 04:46 08:10 08:10 WBC RBC Hgb 9.5 L Hct 28.6 L RDW Lymph % (Auto) Seg Neutrophils % Seg Neuts % (Manual) Lymphocytes % (Manual) Seg Neutrophils # Seg Neutrophils # Man Lymphocytes # (Manual) PT INR D-Dimer ABG pH 7.533 H POC ABG pCO2 POC ABG pO2 128.2 H ABG pO2 ABG HCO3 ABG O2 Saturation ABG Hemoglobin 10.0 L ABG Potassium ABG Chloride ABG Glucose 110 H Sodium Potassium Chloride Carbon Dioxide BUN 5 L Creatinine 0.2 L Glucose POC Glucose Ferritin Lactate Dehydrogenase C-Reactive Protein Total Protein Albumin Arterial Blood Glucose 110 H Ur Specific [place] Urine WBC (Auto) 03/10/20 03/10/20 03/11/20 17:22 23:24 05:07 WBC RBC Hgb Hct RDW Lymph % (Auto) Seg Neutrophils % Seg Neuts % (Manual) Lymphocytes % (Manual) Seg Neutrophils # Seg Neutrophils # Man Lymphocytes # (Manual) PT INR D-Dimer ABG pH POC ABG pCO2 POC ABG pO2 ABG pO2 ABG HCO3 ABG O2 Saturation ABG Hemoglobin ABG Potassium ABG Chloride ABG Glucose Sodium Potassium Chloride Carbon Dioxide BUN Creatinine Glucose POC Glucose 108 H 189 H 217 H Ferritin Lactate Dehydrogenase C-Reactive Protein Total Protein Albumin Arterial Blood Glucose Ur Specific [place] Urine WBC (Auto) 03/11/20 03/11/20 03/12/20 11:28 23:25 05:14 WBC RBC Hgb Hct RDW Lymph % (Auto) Seg Neutrophils % Seg Neuts % (Manual) Lymphocytes % (Manual) Seg Neutrophils # Seg Neutrophils # Man Lymphocytes # (Manual) PT INR D-Dimer ABG pH POC ABG pCO2 POC ABG pO2 ABG pO2 ABG HCO3 ABG O2 Saturation ABG Hemoglobin ABG Potassium ABG Chloride ABG Glucose Sodium Potassium Chloride Carbon Dioxide BUN Creatinine Glucose POC Glucose 212 H 152 H 193 H Ferritin Lactate Dehydrogenase C-Reactive Protein Total Protein Albumin Arterial Blood Glucose Ur Specific [place] Urine WBC (Auto) 03/12/20 03/12/20 03/12/20 11:58 17:11 23:27 WBC RBC Hgb Hct RDW Lymph % (Auto) Seg Neutrophils % Seg Neuts % (Manual) Lymphocytes % (Manual) Seg Neutrophils # Seg Neutrophils # Man Lymphocytes # (Manual) PT INR D-Dimer ABG pH POC ABG pCO2 POC ABG pO2 ABG pO2 ABG HCO3 ABG O2 Saturation ABG Hemoglobin ABG Potassium ABG Chloride ABG Glucose Sodium Potassium Chloride Carbon Dioxide BUN Creatinine Glucose POC Glucose 142 H 141 H 175 H Ferritin Lactate Dehydrogenase C-Reactive Protein Total Protein Albumin Arterial Blood Glucose Ur Specific [place] Urine WBC (Auto) 03/13/20 03/13/20 05:33 12:04 WBC RBC Hgb Hct RDW Lymph % (Auto) Seg Neutrophils % Seg Neuts % (Manual) Lymphocytes % (Manual) Seg Neutrophils # Seg Neutrophils # Man Lymphocytes # (Manual) PT INR D-Dimer ABG pH POC ABG pCO2 POC ABG pO2 ABG pO2 ABG HCO3 ABG O2 Saturation ABG Hemoglobin ABG Potassium ABG Chloride ABG Glucose Sodium Potassium Chloride Carbon Dioxide BUN Creatinine Glucose POC Glucose 184 H 182 H Ferritin Lactate Dehydrogenase C-Reactive Protein Total Protein Albumin Arterial Blood Glucose Ur Specific [place] Urine WBC (Auto) Chest x-ray: pending Allied health notes reviewed: nursing
[2020-03-13] MEDS: MORPHINE 2 MG/1 ML INJ IV PRN ×2 (14:44→19:54)
[2020-03-13] MEDS: ENOXAPARIN 40 MG/0.4 ML INJ SUB-Q SCH (22:29)
[2020-03-14] MEDS: methylPREDNISolone Sod Succinate 125 MG/2 ML INJ IV SCH ×2 (06:00→21:47)
[2020-03-14] MEDS: BUDESONIDE 0.5 MG/2 ML NEBU IH SCH ×2 (07:20→20:12)
[2020-03-14] MEDS: ARFORMOTEROL 15 MCG/2 ML NEBU IH SCH ×2 (07:20→23:40)
[2020-03-14] MEDS: IPRATROPIUM/ALBUTEROL SULFATE 3 ML AMPUL.NEB IH SCH ×3 (07:20→20:12)
[2020-03-14 07:43] LABS: Hematocrit 30.3 % (35.5-45.6); Hemoglobin 9.8 gm/dl (11.8-15.2); Mean Corpuscular HGB Conc 33 % (32-34); Mean Corpuscular Volume 92 fl (84-94); Platelet Count 365 K/mm3 (140-440); Red Cell Distribution Width 17.3 % (13.2-15.2)
[2020-03-14 08:05] LABS: Blood Urea Nitrogen 11 mg/dL (9-20); Calcium 9.1 mg/dL (8.4-10.2); Hemolysis Index 7
[2020-03-14 08:09] LABS: BUN/Creatinine Ratio 37
--- NOTE | 2020-03-14 08:38 | Progress Note ---
Assessment and Plan Assessment and plan: --PUI; COVID-19 test negative on 03/04/2020 --acute on chronic hypoxic respiratory failure; Patient has chronic tracheostomy now on ventilatory support Continue nebulizers ,wean off ventilator as tolerated . Pulmonary critical following. --MRSA pneumonia; respiratory and contact isolation Completed vancomycin, continue Bactrim DS per ID --Bilateral pneumonia; Continue current antibiotics, follow cultures Ventilatory support, pulmonary and ID following --Severe hypokalemia; resolved Closely monitor lecture lites --Hypernatremia; resolved Gentle hydration supportive care --Sepsis secondary to bilateral pneumonia/UTI Continue current antibiotics, follow cultures, ID following --Severe malnutrition; hypoalbuminemia Supportive care, nutrition consult --DVT prophylaxis;Lovenox --Restrain the patient for agitation --Full CODE STATUS; We will closely monitor the patient and adjust the management as needed The high probability of a clinically significant, sudden or life threatening deterioration of the [respiratory, metabolic and infectious disease] system(s) required my full and direct attention, intervention and personal management. The aggregate critical care time was [35] minutes. This time is in addition to time spent performing reported procedures but includes the following: [x] Data Review and interpretation [x] Patient assessment and monitoring of vital signs [x] Documentation [x] Medication orders and management 03/05/2020 -Patient is admitted for acute on chronic respiratory failure and currently on and requiring mechanical ventilation. Continue with IV antibiotics for UTI and sepsis. COVID-19 test is done and is negative. Organ Teacher consulted. Continue with the current management. 03/06/2020 -Patient is admitted for acute on chronic respiratory failure. Patient is on trach and vent. Patient is on IV cefepime and vancomycin per ID recommendation. Pulmonary consulted for vent and trach management. 03/07/2020; continue ventilatory support Wean off vent as tolerated, consults and recommendations noted and appreciated 03/08/2020; We will closely monitor the patient and adjust the management as needed Plan of care reviewed with the patient and his nurse MRSA pneumonia, vancomycin, contact isolation 03/09/2020; patient remains on ventilatory support, on IV antibiotics Wean off vent as tolerated, media consultant recommendations noted and appreciated Plan of care reviewed with the patient's nurse and case management 03/10/2020; chest x-ray mild improvement, remains on ventilatory support, wean off ventilator as tolerated Contact isolation for MRSA pneumonia, continue vancomycin 03/11/2020; patient remains on ventilatory support, MRSA pneumonia on vancomycin for total 8 days and de-escalate to Bactrim DS Per ID recommendations. Contact isolation, restraint for agitation as needed 03/12/2020; we will wean off ventilator as tolerated , patient is more alert and awake today Tracheostomy on vent, on contact isolation MRSA on vancomycin, will follow consultants recommendations 03/13/2020; patient completed 8 days of vancomycin, currently on Bactrim DS, remains on ventilatory support, will wean off ventilator as tolerated We will restrain restraint patient as needed 03/14/2020; unable to wean, being off ventilator as tolerated, contact isolation for MRSA pneumonia Brief history; 64-year-old male with known history of traumatic brain injury, hypertension, history of trach and PEG placement resident of [facility] Was admitted to the emergency room with fever and hypoxic respiratory failure, requiring ventilatory support admitted to ICU, unable to wean Also has MRSA pneumonia, completed vancomycin unclear on Bactrim DS per ID. Wean as tolerated and extubate Discharge and transfer to SNF when stable History Interval history: I have seen and examined the patient bedside in the ICU this morning Contact isolation due to MRSA pneumonia Chronic nazanin failure with tracheostomy on ventilatory support No new adverse events reported by the nursing staff Signs reviewed Hospitalist Physical - Constitutional Vitals: Temp Pulse Resp BP Pulse Ox 98.4 F 49 L 22 141/84 100 03/14/20 03:23 03/14/20 08:00 03/14/20 08:00 03/14/20 08:00 03/14/20 08:00 General appearance: Present: mild distress, cachectic, disheveled, other (Tracheostomy, on ventilatory support) - EENT Eyes: Present: PERRL, EOM intact - Neck Neck: Present: supple, other (Tracheostomy on vent) - Respiratory Respiratory effort: normal Respiratory: bilateral: diminished, rhonchi, negative: rales, wheezing - Cardiovascular Rhythm: regular Heart Sounds: Present: S1 & S2 - Extremities Extremities: no ischemia, abnormal (Contracted) Extremity abnormal: edema - Abdominal General gastrointestinal: soft, non-tender, non-distended, normal bowel sounds, other (PEG tube in place) - Integumentary Integumentary: Present: clear, warm - Psychiatric Psychiatric: other (Noncommunicative) - Neurologic Neurologic: other (Noncommunicative) Results - Labs CBC & Chem 7: 03/14/20 07:08 03/14/20 07:08 Labs: Laboratory Last Values WBC 14.7 K/mm3 (4.5-11.0) H 03/14/20 07:08 RBC 3.30 M/mm3 (3.65-5.03) L 03/14/20 07:08 Hgb 9.8 gm/dl (11.8-15.2) L 03/14/20 07:08 Hct 30.3 % (35.5-45.6) L 03/14/20 07:08 MCV 92 fl (84-94) 03/14/20 07:08 MCH 30 pg (28-32) 03/14/20 07:08 MCHC 33 % (32-34) 03/14/20 07:08 RDW 17.3 % (13.2-15.2) H 03/14/20 07:08 Plt Count 365 K/mm3 (140-440) 03/14/20 07:08 Lymph % (Auto) 13.7 % (13.4-35.0) 03/07/20 06:03 [place] % (Auto) [place] 03/14/20 07:08 Eos % (Auto) 0.5 % (0.0-4.3) 03/07/20 06:03 Baso % (Auto) 0.3 % (0.0-1.8) 03/07/20 06:03 Lymph # (Auto) 1.3 K/mm3 (1.2-5.4) 03/07/20 06:03 [place] # (Auto) 0.5 K/mm3 (0.0-0.8) 03/07/20 06:03 Eos # (Auto) 0.0 K/mm3 (0.0-0.4) 03/07/20 06:03 Baso # (Auto) 0.0 K/mm3 (0.0-0.1) 03/07/20 06:03 Add Manual Diff Complete 03/04/20 02:59 Total Counted 100 03/04/20 02:59 Seg Neutrophils % 80.1 % (40.0-70.0) H 03/07/20 06:03 Seg Neuts % (Manual) 93.0 % (40.0-70.0) H 03/04/20 02:59 Band Neutrophils % 0 % 03/04/20 02:59 Lymphocytes % (Manual) 5.0 % (13.4-35.0) L 03/04/20 02:59 Reactive Lymphs % (Man) 0 % 03/04/20 02:59 Monocytes % (Manual) 2.0 % (0.0-7.3) 03/04/20 02:59 Eosinophils % (Manual) 0 % (0.0-4.3) 03/04/20 02:59 Basophils % (Manual) 0 % (0.0-1.8) 03/04/20 02:59 Metamyelocytes % 0 % 03/04/20 02:59 Myelocytes % 0 % 03/04/20 02:59 Promyelocytes % 0 % 03/04/20 02:59 Blast Cells % 0 % 03/04/20 02:59 Nucleated RBC % Not Reportable 03/04/20 02:59 Seg Neutrophils # 7.8 K/mm3 (1.8-7.7) H 03/07/20 06:03 Seg Neutrophils # Man 14.1 K/mm3 (1.8-7.7) H 03/04/20 02:59 Band Neutrophils # 0.0 K/mm3 03/04/20 02:59 Lymphocytes # (Manual) 0.8 K/mm3 (1.2-5.4) L 03/04/20 02:59 Abs React Lymphs (Man) 0.0 K/mm3 03/04/20 02:59 Monocytes # (Manual) 0.3 K/mm3 (0.0-0.8) 03/04/20 02:59 Eosinophils # (Manual) 0.0 K/mm3 (0.0-0.4) 03/04/20 02:59 Basophils # (Manual) 0.0 K/mm3 (0.0-0.1) 03/04/20 02:59 Metamyelocytes # 0.0 K/mm3 03/04/20 02:59 Myelocytes # 0.0 K/mm3 03/04/20 02:59 Promyelocytes # 0.0 K/mm3 03/04/20 02:59 Blast Cells # 0.0 K/mm3 03/04/20 02:59 WBC Morphology Not Reportable 03/04/20 02:59 Hypersegmented Neuts Not Reportable 03/04/20 02:59 Hyposegmented Neuts Not Reportable 03/04/20 02:59 Hypogranular Neuts Not Reportable 03/04/20 02:59 Smudge Cells Not Reportable 03/04/20 02:59 Toxic Granulation Not Reportable 03/04/20 02:59 Toxic Vacuolation Not Reportable 03/04/20 02:59 Dohle Bodies Not Reportable 03/04/20 02:59 Pelger-Huet Anomaly Not Reportable 03/04/20 02:59 Mike Rods Not Reportable 03/04/20 02:59 Platelet Estimate Consistent w auto 03/04/20 02:59 Clumped Platelets Not Reportable 03/04/20 02:59 Plt Clumps, EDTA Not Reportable 03/04/20 02:59 Large Platelets Not Reportable 03/04/20 02:59 Giant Platelets Not Reportable 03/04/20 02:59 Platelet Satelliting Not Reportable 03/04/20 02:59 Plt Morphology Comment Not Reportable 03/04/20 02:59 RBC Morphology Not Reportable 03/04/20 02:59 Dimorphic RBCs Not Reportable 03/04/20 02:59 Polychromasia Not Reportable 03/04/20 02:59 Hypochromasia Few 03/04/20 02:59 Poikilocytosis Not Reportable 03/04/20 02:59 Anisocytosis Few 03/04/20 02:59 Microcytosis Not Reportable 03/04/20 02:59 Macrocytosis Not Reportable 03/04/20 02:59 Spherocytes Not Reportable 03/04/20 02:59 Pappenheimer Bodies Not Reportable 03/04/20 02:59 Sickle Cells Not Reportable 03/04/20 02:59 Target Cells Not Reportable 03/04/20 02:59 Tear Drop Cells Not Reportable 03/04/20 02:59 Ovalocytes Not Reportable 03/04/20 02:59 Helmet Cells Not Reportable 03/04/20 02:59 [place] Bodies Not Reportable 03/04/20 02:59 [place] Rings Not Reportable 03/04/20 02:59 Marcos Cells Not Reportable 03/04/20 02:59 Bite Cells Not Reportable 03/04/20 02:59 Crenated Cell Not Reportable 03/04/20 02:59 Elliptocytes Not Reportable 03/04/20 02:59 Acanthocytes (Spur) Not Reportable 03/04/20 02:59 Rouleaux Not Reportable 03/04/20 02:59 Hemoglobin C Crystals Not Reportable 03/04/20 02:59 Schistocytes Not Reportable 03/04/20 02:59 Malaria parasites Not Reportable 03/04/20 02:59 Branden Bodies Not Reportable 03/04/20 02:59 Hem Pathologist Commnt No 03/04/20 02:59 PT 15.9 Sec. (12.2-14.9) H 03/04/20 02:59 INR 1.29 (0.87-1.13) H 03/04/20 02:59 D-Dimer 1415.56 ng/mlDDU (0-234) H 03/03/20 22:00 ABG pH 7.533 (7.320-7.450) H 03/10/20 04:46 POC ABG pCO2 34.1 mmHg (32.0-48.0) 03/10/20 04:46 ABG pCO2 31.0 mm Hg 03/08/20 04:30 POC ABG pO2 128.2 mmHg (83-108) H 03/10/20 04:46 ABG pO2 170.6 mm Hg (80.0-90.0) H 03/08/20 04:30 POC ABG HCO3 28 03/10/20 04:46 ABG HCO3 24.3 mmol/L (20.0-26.0) 03/08/20 04:30 ABG O2 Saturation 99.2 % (95.0-99.0) H 03/08/20 04:30 ABG O2 Content 12.4 (0.0-44) 03/08/20 04:30 POC ABG Base Excess 5.3 03/10/20 04:46 ABG Base Excess 1.6 mmol/L (-2.0-3.0) 03/08/20 04:30 ABG Hemoglobin 10.0 (12.0-17.5) L 03/10/20 04:46 ABG Carboxyhemoglobin 1.0 % (0.0-5.0) 03/08/20 04:30 ABG Methemoglobin 0.4 % (0.0-1.5) 03/08/20 04:30 ABG Sodium 137.7 mmol/L (136.0-145.0) 03/10/20 04:46 ABG Potassium 3.6 mmol/L (3.40-4.50) 03/10/20 04:46 ABG Chloride 107.0 mmol/L (98-107) 03/10/20 04:46 ABG Glucose 110 mg/dL (65-95) H 03/10/20 04:46 Oxyhemoglobin 97.7 % (95.0-99.0) 03/08/20 04:30 FiO2 28 03/10/20 04:46 Sodium 140 mmol/L (137-145) 03/14/20 07:08 Potassium 3.9 mmol/L (3.6-5.0) 03/14/20 07:08 Chloride 104.2 mmol/L (98-107) 03/14/20 07:08 Carbon Dioxide 27 mmol/L (22-30) 03/10/20 08:10 Anion Gap 10 mmol/L 03/10/20 08:10 BUN 11 mg/dL (9-20) 03/14/20 07:08 Creatinine 0.3 mg/dL (0.8-1.3) L 03/14/20 07:08 Estimated GFR > 60 ml/min 03/14/20 07:08 BUN/Creatinine Ratio 37 % 03/14/20 07:08 Glucose 84 mg/dL (75-100) 03/10/20 08:10 POC Glucose 116 mg/dL (70-105) H 03/14/20 05:16 Lactic Acid 0.80 mmol/L (0.7-2.0) 03/04/20 02:59 Calcium 9.1 mg/dL (8.4-10.2) 03/14/20 07:08 Magnesium 2.00 mg/dL (1.7-2.3) 03/14/20 07:08 Ferritin 522.1 ng/mL (30.0-300.0) H 03/03/20 22:00 Total Bilirubin 0.20 mg/dL (0.1-1.2) 03/08/20 21:07 AST 19 units/L (5-40) 03/08/20 21:07 ALT 22 units/L (7-56) 03/08/20 21:07 Alkaline Phosphatase 86 units/L (35-129) 03/08/20 21:07 Lactate Dehydrogenase 240 units/L (91-180) H 03/03/20 22:00 C-Reactive Protein 17.20 mg/dL (0.00-1.30) H 03/03/20 22:00 Total Protein 6.9 g/dL (6.3-8.2) D 03/08/20 21:07 Albumin 2.8 g/dL (3.9-5) L 03/08/20 21:07 Albumin/Globulin Ratio 0.7 % 03/08/20 21:07 Procalcitonin 0.31 ng/mL (<0.15) 03/03/20 22:00 Arterial Blood Glucose 110 mg/dL (65-95) H 03/10/20 04:46 Arterial Blood Ionized Calcium 4.6 mg/dL (4.6-5.3) 03/10/20 04:46 Urine Color Bing (Yellow) 03/03/20 22:15 Urine Turbidity Clear (Clear) 03/03/20 22:15 Urine pH 5.0 (5.0-7.0) 03/03/20 22:15 Ur Specific [place] 1.031 (1.003-1.030) H 03/03/20 22:15 Urine Protein 30 mg/dl mg/dL (Negative) 03/03/20 22:15 Urine Glucose (UA) Neg mg/dL (Negative) 03/03/20 22:15 Urine Ketones Neg mg/dL (Negative) 03/03/20 22:15 Urine Blood Neg (Negative) 03/03/20 22:15 Urine Nitrite Neg (Negative) 03/03/20 22:15 Urine Bilirubin Neg (Negative) 03/03/20 22:15 Urine Urobilinogen 4.0 mg/dL (<2.0) 03/03/20 22:15 Ur Leukocyte Esterase Tr (Negative) 03/03/20 22:15 Urine WBC (Auto) 8.0 /HPF (0.0-6.0) H 03/03/20 22:15 Urine RBC (Auto) 2.0 /HPF (0.0-6.0) 03/03/20 22:15 U Epithel Cells (Auto) 1.0 /HPF (0-13.0) 03/03/20 22:15 Urine Bacteria (Auto) 1+ /HPF (Negative) 03/03/20 22:15 Hyaline Casts 1 /LPF 03/03/20 22:15 Urine Mucus 1+ /HPF 03/03/20 22:15 Vancomycin Trough 9.0 ug/mL (5.0-20.0) 03/06/20 20:15 Coronavirus (PCR) Negative (Negative) 03/04/20 09:16 Sarah/IV: Voiding Method Condom Catheter IV Catheter Type [Right Upper INT / Saline Lock arm] IV Catheter Type [Left Upper Mid-line arm] IV Catheter Type [Right Peripheral IV Forearm] Active Medications - Current Medications Current Medications: Generic Name Dose Route Start Last Admin Trade Name Freq PRN Reason Stop Dose Admin Albuterol/Ipratropium 1 ampul 03/12/20 08:00 03/14/20 07:20 Duoneb *Not For Prn Use* IH 1 ampul TIDRT KESHAWN Administration Lipase/Protease/Amylase 1 each 03/06/20 14:54 Pancreazkandice Cheney 10,500 Unit FEEDTUBE PRN PRN For Clogged Feeding Tube Arformoterol Tartrate 15 mcg 03/10/20 20:00 03/14/20 07:20 Brovana Nebu IH 15 mcg Q12HRT KESHAWN Administration Budesonide 0.5 mg 03/10/20 20:00 03/14/20 07:20 Pulmicort IH 0.5 mg Q12HRT KESHAWN Administration Enoxaparin Sodium 40 mg 03/04/20 22:00 03/13/20 22:29 Enoxaparin SUB-Q 40 mg QDAY@2200 KESHAWN Administration Protocol Famotidine 20 mg 03/09/20 11:00 03/13/20 22:30 Pepcid FEEDTUBE 20 mg BID KESHAWN Administration Hydrophilic Ointment 1 applic 03/03/20 22:31 03/06/20 08:19 Vaseline Lip Therapy TP 1 applic Q2HR PRN Administration Dry Lips Lorazepam 1 mg 03/08/20 23:42 03/11/20 22:06 Ativan IV 1 mg Q4H PRN Administration Agitation Magnesium Hydroxide 30 ml 03/03/20 23:45 Milk Of Magnesia PO Q4H PRN Constipation Methylprednisolone Sodium Succinate 60 mg 03/10/20 16:00 03/14/20 06:00 Solu-Medrol IV 60 mg Q8HR KESHAWN Administration Morphine Sulfate 2 mg 03/03/20 23:45 03/13/20 19:54 Morphine IV 2 mg Q4H PRN Administration Pain, Moderate (4-6) Multi-Ingred Cream/Lotion/Oil/Oint 1 applic 03/03/20 22:31 Artificial Tears Ophth Oint OU Q4HR PRN Dry Eye(s) Ondansetron HCl 4 mg 03/03/20 23:45 03/05/20 16:12 Zofran IV 4 mg Q8H PRN Administration Nausea And Vomiting Quetiapine Fumarate 100 mg 03/12/20 22:00 03/13/20 22:30 Seroquel PO 100 mg BID KESHAWN Administration Simethicone 80 mg 03/11/20 09:39 03/11/20 11:06 Mylicon PO 80 mg Q6H PRN Administration Gas pain Simple Syrup 15 ml 03/06/20 14:54 Simple Syrup FEEDTUBE PRN PRN Hypoglycemia Simple Syrup 30 ml 03/06/20 14:54 Simple Syrup FEEDTUBE PRN PRN Hypoglycemia Sodium Bicarbonate 325 mg 03/06/20 14:54 Sodium Bicarbonate FEEDTUBE PRN PRN For Clogged Feeding Tube Sodium Chloride 10 ml 03/04/20 10:00 03/13/20 22:29 Sodium Chloride Flush Syringe 10 Ml IV 10 ml BID KESHAWN Administration Sodium Chloride 10 ml 03/03/20 23:45 Sodium Chloride Flush Syringe 10 Ml IV PRN PRN LINE FLUSH Nutrition/Malnutrition Assess - Dietary Evaluation Nutrition/Malnutrition Findings: Nutrition Notes Start: 03/04/20 09:15 Freq: Status: Active Protocol: Document 03/09/20 11:42 EN (Rec: 03/09/20 11:46 EN [id number]) Co-Sign 03/09/20 11:42 MK Nutrition Notes Initial or Follow up Reassessment Current Diagnosis Sepsis,Hypertension, Respiratory Failure Other Pertinent Diagnosis Bilat pneu, sacral wound, TBI Current Diet Osmolite 1.5 at 60 ml/hr Labs/Tests Reviewed Pertinent Medications Reviewed Height 6 ft 3 in Weight 63.4 kg [place] Body Weight (kg) 89.09 BMI 17.4 Weight Status Underweight Subjective/Other Information F/u for TF tolerance, vent status and diarrhea. Pt remains on vent. Per RN, pt tolerating TF at goal rate and stool is no longer watery. 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 Yes Is Patient Ambulatory and/or Out of Bed No REE-([place]-confined to bed) 1816.932 Kcal/Kg value to use for calculation 35 Approximate Energy Requirements Using 2219 kcal/Kg Calculation Used for Recommendations Kcal/kg Additional Notes Pro needs 1.25-2g/k-127g/ day Fluid needs 1ml/kcal Nutrition Intervention Change Diet Order: Continue current TF Nutrition Support: Osmolite 1.5 at 60ml/hr with 175ml water flush q4h. Kcal 2,160 Protein (gm) 90 Fluid (mL) 1,097 Goal #1 TF tolerance Goal #2 TF (at goal rate) to meet 100% energy and pro needs Goal #3 Wt maintenance and/or gain Goal #4 Wound healing Anticipated Discharge Needs: Continue TF Follow-Up By: 03/14/20 Additional Comments F/u for TF tolerance
[2020-03-14] MEDS: MORPHINE 2 MG/1 ML INJ IV PRN (09:09)
[2020-03-14] MEDS: QUEtiapine 100 MG TAB PO SCH ×2 (09:10→21:47)
[2020-03-14] MEDS: FAMOTIDINE 20 MG TAB FEEDTUBE SCH ×2 (09:10→21:46)
[2020-03-14 09:22] LABS: Alanine Aminotransferase 34 units/L (7-56); Albumin 2.5 g/dL (3.9-5)
--- NOTE | 2020-03-14 10:52 | Progress Note ---
Assessment and Plan Sepsis, leucocytosis likely secondary to bilateral pneumonia. Acute and chronic hypoxemic respiratory failure, on MVS Chronic tracheostomy Bilateral pneumonia [id number] infection Oropharyngeal dysphagia s/p PEG Chronic indwelling Martinez cather h/o TBI with chronic encephalopathy Hypernatremia - LTAC evaluation - BID Questran re: loose stools - taper Solumedrol to 60 mg IV q12h - continue Seroquel for sedation / anxiolysis - continue care as below otherwise; - continue daily SAT's and SBT assessment as tolerated - continue to rest on AC qhs during wean - continue Brovana & Pulmicort re: COPD - continue empiric steroids re: COPD exacerbation - continue contact isolation for MRSA - continue accuchecks with glycemic control per SSI (While critically ill target blood glucose of 140-180 mg/dL; avoid hypoglycemia) - sedation prn for target RASS 0 to -1 - continue to wean supplemental oxygen for target O2 sat's > 92% acutely - VAP bundle addressed - continue lung protective strategies - continue bronchodilators with pulmonary hygiene per RT - wean per pulmonary driven protocols otherwise - Free water via PEG tube for hypernatremia - Chronic martinez, catheter care - avoid nephrotoxins, renally dose all medications - continue to avoid benzodiazepine's, reduce the possibility of delirium - complete AB's per ID rec's, follow cultures and de-escalate as indicated (treat empirically for HAP; on Cefepime and Vancomycin) - prn analgesia per CPOT score - Maintenance of sleep-wake cycle, avoid delirium - continue enteral nutritional support at goal rate as tolerated - G.I. & VTE prophylaxis with Famotidine and enoxaparin - PT/OT/ROM exercises - continue mobility protocols for pressure ulcer prophylaxis - Monitor hemodynamics closely - continue other care per attending / other consultants - discharge planning ongoing concurrently .... Re-evaluate in am & prn CONDITION: CRITICAL PROGNOSIS: GUARDED CODE STATUS: FULL CODE The high probability of a clinically significant, sudden or life-threatening deterioration of the [cardiac, respiratory & neurologic] system(s) required my full and direct attention, intervention and personal management. The aggregate critical care time was [32] minutes without overlap. Time includes spent on; [x] Data Review and interpretation [x] Patient assessment and monitoring of vital signs [x] Documentation [x] Medication orders and management Subjective Date of service: 03/14/20 Principal diagnosis: Severe Sepsis; PNA; Ac on ch hypoxemic resp failure; [id number] Interval history: Patient is seen today for: Severe Sepsis; Pneumonia; Acute on chronic hypoxemic respiratory failure; Chronic tracheostomy; [id number] infection; h/o TBI with chronic encephalopathy; Hypernatremia Seen and examined at bedside; 24hour events reviewed; nursing and respiratory care staff consulted; no adverse overnight events reported to me; resting peacefully in bed; remains on MVS; weaning tenuously but appears to be significantly agitation driven decompensations Objective Vital Signs - 12hr 03/13/20 03/13/20 03/13/20 23:00 23:06 23:48 Temperature 98.8 F Pulse Rate 60 62 Pulse Rate [ Anterior Bilateral Throughout] Pulse Rate [ From Monitor] Respiratory 19 15 Rate Respiratory Rate [Anterior Bilateral Throughout] Blood Pressure 151/81 140/66 O2 Sat by Pulse 100 100 Oximetry O2 Sat by Pulse Oximetry [ Assessment] 03/14/20 03/14/20 03/14/20 00:00 00:02 01:00 Temperature Pulse Rate 61 91 H 66 Pulse Rate [ Anterior Bilateral Throughout] Pulse Rate [ 60 From Monitor] Respiratory 19 20 Rate Respiratory Rate [Anterior Bilateral Throughout] Blood Pressure 148/64 148/64 148/64 O2 Sat by Pulse 100 99 100 Oximetry O2 Sat by Pulse Oximetry [ Assessment] 03/14/20 03/14/20 03/14/20 02:00 03:00 03:23 Temperature 98.4 F Pulse Rate 56 L 59 L Pulse Rate [ Anterior Bilateral Throughout] Pulse Rate [ From Monitor] Respiratory 15 20 Rate Respiratory Rate [Anterior Bilateral Throughout] Blood Pressure 130/68 138/90 O2 Sat by Pulse 100 99 Oximetry O2 Sat by Pulse Oximetry [ Assessment] 03/14/20 03/14/20 03/14/20 04:00 04:52 05:00 Temperature Pulse Rate 68 52 L 53 L Pulse Rate [ Anterior Bilateral Throughout] Pulse Rate [ 46 L From Monitor] Respiratory 22 16 Rate Respiratory Rate [Anterior Bilateral Throughout] Blood Pressure 139/59 139/59 146/73 O2 Sat by Pulse 100 100 100 Oximetry O2 Sat by Pulse 100 Oximetry [ Assessment] 03/14/20 03/14/20 03/14/20 06:00 07:00 07:20 Temperature Pulse Rate 69 65 60 Pulse Rate [ 74 Anterior Bilateral Throughout] Pulse Rate [ From Monitor] Respiratory 15 20 Rate Respiratory 25 H Rate [Anterior Bilateral Throughout] Blood Pressure 128/68 153/49 153/49 O2 Sat by Pulse 100 100 100 Oximetry O2 Sat by Pulse 100 Oximetry [ Assessment] 03/14/20 03/14/20 03/14/20 08:00 09:00 10:00 Temperature Pulse Rate 74 76 69 Pulse Rate [ Anterior Bilateral Throughout] Pulse Rate [ 49 L From Monitor] Respiratory 24 29 H 18 Rate Respiratory Rate [Anterior Bilateral Throughout] Blood Pressure 141/84 141/84 146/77 O2 Sat by Pulse 100 100 100 Oximetry O2 Sat by Pulse Oximetry [ Assessment] Constitutional: no acute distress, other (elderly thin male with mildly increased respiratory effort at rest on MVS) Eyes: non-icteric ENT: oropharynx moist, other (+ midline Shiley tracheostomy) Neck: supple, no lymphadenopathy, no JVD Effort: mildly labored Ascultation: Bilateral: diminished breath sounds, rhonchi, other (prolonged exp phase) Percussion: Bilateral: not dull Cardiovascular: regular rate and rhythm, other (S1,S2) Gastrointestinal: normoactive bowel sounds, soft, non-tender, non-distended, other (PEG in place) Integumentary: normal Extremities: no cyanosis, no edema, pulses normal Neurologic: pupils equal and round, CN II-XII normal, unable to assess, other (RUExt weakness) Psychiatric: mood appropriate, affect normal CBC and BMP: 03/15/20 04:56 03/15/20 04:56 ABG, PT/INR, D-dimer: ABG ABG pH 7.533 (7.320-7.450) H 03/10/20 04:46 POC ABG pCO2 34.1 mmHg (32.0-48.0) 03/10/20 04:46 ABG pCO2 31.0 mm Hg 03/08/20 04:30 POC ABG pO2 128.2 mmHg (83-108) H 03/10/20 04:46 ABG pO2 170.6 mm Hg (80.0-90.0) H 03/08/20 04:30 POC ABG HCO3 28 03/10/20 04:46 ABG O2 Saturation 99.2 % (95.0-99.0) H 03/08/20 04:30 PT/INR, D-dimer PT 15.9 Sec. (12.2-14.9) H 03/04/20 02:59 INR 1.29 (0.87-1.13) H 03/04/20 02:59 D-Dimer 1415.56 ng/mlDDU (0-234) H 03/03/20 22:00 Abnormal lab findings: Abnormal Labs 03/03/20 03/03/20 03/03/20 01:10 21:51 21:51 WBC 15.5 H RBC Hgb Hct 35.3 L RDW 17.9 H Lymph % (Auto) 11.6 L Seg Neutrophils % 83.7 H Seg Neuts % (Manual) Lymphocytes % (Manual) Seg Neutrophils # 13.0 H Seg Neutrophils # Man Lymphocytes # (Manual) PT INR D-Dimer ABG pH POC ABG pCO2 POC ABG pO2 ABG pO2 173.4 H ABG HCO3 26.7 H ABG O2 Saturation 99.1 H ABG Hemoglobin 11.6 L ABG Potassium ABG Chloride ABG Glucose Sodium 151 H Potassium Chloride 114.4 H Carbon Dioxide BUN 29 H Creatinine 0.6 L Glucose 116 H POC Glucose Ferritin Lactate Dehydrogenase C-Reactive Protein Total Protein 8.9 H Albumin 2.8 L Arterial Blood Glucose Ur Specific [place] Urine WBC (Auto) 03/03/20 03/03/20 03/03/20 22:00 22:00 22:00 WBC RBC Hgb Hct RDW Lymph % (Auto) Seg Neutrophils % Seg Neuts % (Manual) Lymphocytes % (Manual) Seg Neutrophils # Seg Neutrophils # Man Lymphocytes # (Manual) PT INR D-Dimer 1415.56 H ABG pH POC ABG pCO2 POC ABG pO2 ABG pO2 ABG HCO3 ABG O2 Saturation ABG Hemoglobin ABG Potassium ABG Chloride ABG Glucose Sodium Potassium Chloride Carbon Dioxide BUN Creatinine Glucose 106 H POC Glucose Ferritin 522.1 H Lactate Dehydrogenase 240 H C-Reactive Protein 17.20 H Total Protein Albumin Arterial Blood Glucose Ur Specific [place] Urine WBC (Auto) 03/03/20 03/04/20 03/04/20 22:15 02:59 02:59 WBC 15.2 H RBC 3.56 L Hgb 10.9 L Hct 33.4 L RDW 17.5 H Lymph % (Auto) Seg Neutrophils % Seg Neuts % (Manual) 93.0 H Lymphocytes % (Manual) 5.0 L Seg Neutrophils # Seg Neutrophils # Man 14.1 H Lymphocytes # (Manual) 0.8 L PT 15.9 H INR 1.29 H D-Dimer ABG pH POC ABG pCO2 POC ABG pO2 ABG pO2 ABG HCO3 ABG O2 Saturation ABG Hemoglobin ABG Potassium ABG Chloride ABG Glucose Sodium Potassium Chloride Carbon Dioxide BUN Creatinine Glucose POC Glucose Ferritin Lactate Dehydrogenase C-Reactive Protein Total Protein Albumin Arterial Blood Glucose Ur Specific [place] 1.031 H Urine WBC (Auto) 8.0 H 03/04/20 03/04/20 03/05/20 02:59 16:16 04:00 WBC RBC Hgb Hct RDW Lymph % (Auto) Seg Neutrophils % Seg Neuts % (Manual) Lymphocytes % (Manual) Seg Neutrophils # Seg Neutrophils # Man Lymphocytes # (Manual) PT INR D-Dimer ABG pH 7.451 H 7.498 H POC ABG pCO2 POC ABG pO2 ABG pO2 102.9 H 122.7 H ABG HCO3 ABG O2 Saturation ABG Hemoglobin 12.7 L 10.2 L ABG Potassium ABG Chloride ABG Glucose Sodium 152 H Potassium Chloride 116.9 H Carbon Dioxide BUN 27 H Creatinine 0.4 L Glucose 127 H POC Glucose Ferritin Lactate Dehydrogenase C-Reactive Protein Total Protein Albumin Arterial Blood Glucose Ur Specific [place] Urine WBC (Auto) 03/05/20 03/05/20 03/05/20 05:32 05:32 18:05 WBC 17.4 H RBC 3.35 L Hgb 10.3 L Hct 31.4 L RDW 17.2 H Lymph % (Auto) 10.9 L Seg Neutrophils % 85.3 H Seg Neuts % (Manual) Lymphocytes % (Manual) Seg Neutrophils # 14.8 H Seg Neutrophils # Man Lymphocytes # (Manual) PT INR D-Dimer ABG pH POC ABG pCO2 POC ABG pO2 ABG pO2 ABG HCO3 ABG O2 Saturation ABG Hemoglobin ABG Potassium ABG Chloride ABG Glucose Sodium 150 H 146 H Potassium 3.4 L Chloride 115.0 H 113.7 H Carbon Dioxide 20 L BUN 29 H Creatinine 0.5 L 0.3 L Glucose POC Glucose Ferritin Lactate Dehydrogenase C-Reactive Protein Total Protein Albumin Arterial Blood Glucose Ur Specific [place] Urine WBC (Auto) 03/06/20 03/06/20 03/06/20 04:16 04:16 05:50 WBC 11.2 H RBC 3.05 L Hgb 9.2 L Hct 28.2 L RDW 16.8 H Lymph % (Auto) Seg Neutrophils % 80.0 H Seg Neuts % (Manual) Lymphocytes % (Manual) Seg Neutrophils # 9.0 H Seg Neutrophils # Man Lymphocytes # (Manual) PT INR D-Dimer ABG pH POC ABG pCO2 POC ABG pO2 ABG pO2 194.8 H ABG HCO3 ABG O2 Saturation 99.3 H ABG Hemoglobin 9.2 L ABG Potassium ABG Chloride ABG Glucose Sodium 146 H Potassium 3.1 L Chloride 111.3 H Carbon Dioxide BUN Creatinine 0.4 L Glucose POC Glucose Ferritin Lactate Dehydrogenase C-Reactive Protein Total Protein Albumin Arterial Blood Glucose Ur Specific [place] Urine WBC (Auto) 03/07/20 03/07/20 03/07/20 02:54 05:47 06:03 WBC RBC 3.21 L Hgb 9.8 L Hct 28.6 L RDW 16.6 H Lymph % (Auto) Seg Neutrophils % 80.1 H Seg Neuts % (Manual) Lymphocytes % (Manual) Seg Neutrophils # 7.8 H Seg Neutrophils # Man Lymphocytes # (Manual) PT INR D-Dimer ABG pH 7.504 H POC ABG pCO2 30.5 L POC ABG pO2 ABG pO2 ABG HCO3 ABG O2 Saturation ABG Hemoglobin 10.4 L ABG Potassium 2.7 L ABG Chloride 109.0 H ABG Glucose Sodium Potassium Chloride Carbon Dioxide BUN Creatinine Glucose POC Glucose 126 H Ferritin Lactate Dehydrogenase C-Reactive Protein Total Protein Albumin Arterial Blood Glucose Ur Specific [place] Urine WBC (Auto) 03/07/20 03/07/20 03/07/20 06:03 17:22 17:25 WBC RBC Hgb Hct RDW Lymph % (Auto) Seg Neutrophils % Seg Neuts % (Manual) Lymphocytes % (Manual) Seg Neutrophils # Seg Neutrophils # Man Lymphocytes # (Manual) PT INR D-Dimer ABG pH POC ABG pCO2 POC ABG pO2 ABG pO2 ABG HCO3 ABG O2 Saturation ABG Hemoglobin ABG Potassium ABG Chloride ABG Glucose Sodium Potassium 2.7 L* Chloride 107.6 H Carbon Dioxide 21 L BUN 8 L Creatinine 0.3 L Glucose 129 H POC Glucose 119 H 125 H Ferritin Lactate Dehydrogenase C-Reactive Protein Total Protein Albumin Arterial Blood Glucose Ur Specific [place] Urine WBC (Auto) 03/07/20 03/08/20 03/08/20 23:30 04:30 16:56 WBC RBC Hgb Hct RDW Lymph % (Auto) Seg Neutrophils % Seg Neuts % (Manual) Lymphocytes % (Manual) Seg Neutrophils # Seg Neutrophils # Man Lymphocytes # (Manual) PT INR D-Dimer ABG pH 7.513 H POC ABG pCO2 POC ABG pO2 ABG pO2 170.6 H ABG HCO3 ABG O2 Saturation 99.2 H ABG Hemoglobin 8.8 L ABG Potassium ABG Chloride ABG Glucose Sodium Potassium Chloride Carbon Dioxide BUN Creatinine Glucose POC Glucose 107 H 108 H Ferritin Lactate Dehydrogenase C-Reactive Protein Total Protein Albumin Arterial Blood Glucose Ur Specific [place] Urine WBC (Auto) 03/08/20 03/09/20 03/09/20 21:07 04:17 11:08 WBC RBC Hgb Hct RDW Lymph % (Auto) Seg Neutrophils % Seg Neuts % (Manual) Lymphocytes % (Manual) Seg Neutrophils # Seg Neutrophils # Man Lymphocytes # (Manual) PT INR D-Dimer ABG pH 7.498 H POC ABG pCO2 POC ABG pO2 125.5 H ABG pO2 ABG HCO3 ABG O2 Saturation ABG Hemoglobin ABG Potassium ABG Chloride 109.0 H ABG Glucose 103 H Sodium Potassium Chloride 109.4 H Carbon Dioxide BUN 6 L Creatinine 0.3 L Glucose 121 H POC Glucose 123 H Ferritin Lactate Dehydrogenase C-Reactive Protein Total Protein Albumin 2.8 L Arterial Blood Glucose 103 H Ur Specific [place] Urine WBC (Auto) 03/10/20 03/10/20 03/10/20 04:46 08:10 08:10 WBC RBC Hgb 9.5 L Hct 28.6 L RDW Lymph % (Auto) Seg Neutrophils % Seg Neuts % (Manual) Lymphocytes % (Manual) Seg Neutrophils # Seg Neutrophils # Man Lymphocytes # (Manual) PT INR D-Dimer ABG pH 7.533 H POC ABG pCO2 POC ABG pO2 128.2 H ABG pO2 ABG HCO3 ABG O2 Saturation ABG Hemoglobin 10.0 L ABG Potassium ABG Chloride ABG Glucose 110 H Sodium Potassium Chloride Carbon Dioxide BUN 5 L Creatinine 0.2 L Glucose POC Glucose Ferritin Lactate Dehydrogenase C-Reactive Protein Total Protein Albumin Arterial Blood Glucose 110 H Ur Specific [place] Urine WBC (Auto) 03/10/20 03/10/20 03/11/20 17:22 23:24 05:07 WBC RBC Hgb Hct RDW Lymph % (Auto) Seg Neutrophils % Seg Neuts % (Manual) Lymphocytes % (Manual) Seg Neutrophils # Seg Neutrophils # Man Lymphocytes # (Manual) PT INR D-Dimer ABG pH POC ABG pCO2 POC ABG pO2 ABG pO2 ABG HCO3 ABG O2 Saturation ABG Hemoglobin ABG Potassium ABG Chloride ABG Glucose Sodium Potassium Chloride Carbon Dioxide BUN Creatinine Glucose POC Glucose 108 H 189 H 217 H Ferritin Lactate Dehydrogenase C-Reactive Protein Total Protein Albumin Arterial Blood Glucose Ur Specific [place] Urine WBC (Auto) 03/11/20 03/11/20 03/12/20 11:28 23:25 05:14 WBC RBC Hgb Hct RDW Lymph % (Auto) Seg Neutrophils % Seg Neuts % (Manual) Lymphocytes % (Manual) Seg Neutrophils # Seg Neutrophils # Man Lymphocytes # (Manual) PT INR D-Dimer ABG pH POC ABG pCO2 POC ABG pO2 ABG pO2 ABG HCO3 ABG O2 Saturation ABG Hemoglobin ABG Potassium ABG Chloride ABG Glucose Sodium Potassium Chloride Carbon Dioxide BUN Creatinine Glucose POC Glucose 212 H 152 H 193 H Ferritin Lactate Dehydrogenase C-Reactive Protein Total Protein Albumin Arterial Blood Glucose Ur Specific [place] Urine WBC (Auto) 03/12/20 03/12/20 03/12/20 11:58 17:11 23:27 WBC RBC Hgb Hct RDW Lymph % (Auto) Seg Neutrophils % Seg Neuts % (Manual) Lymphocytes % (Manual) Seg Neutrophils # Seg Neutrophils # Man Lymphocytes # (Manual) PT INR D-Dimer ABG pH POC ABG pCO2 POC ABG pO2 ABG pO2 ABG HCO3 ABG O2 Saturation ABG Hemoglobin ABG Potassium ABG Chloride ABG Glucose Sodium Potassium Chloride Carbon Dioxide BUN Creatinine Glucose POC Glucose 142 H 141 H 175 H Ferritin Lactate Dehydrogenase C-Reactive Protein Total Protein Albumin Arterial Blood Glucose Ur Specific [place] Urine WBC (Auto) 03/13/20 03/13/20 03/13/20 05:33 12:04 23:20 WBC RBC Hgb Hct RDW Lymph % (Auto) Seg Neutrophils % Seg Neuts % (Manual) Lymphocytes % (Manual) Seg Neutrophils # Seg Neutrophils # Man Lymphocytes # (Manual) PT INR D-Dimer ABG pH POC ABG pCO2 POC ABG pO2 ABG pO2 ABG HCO3 ABG O2 Saturation ABG Hemoglobin ABG Potassium ABG Chloride ABG Glucose Sodium Potassium Chloride Carbon Dioxide BUN Creatinine Glucose POC Glucose 184 H 182 H 132 H Ferritin Lactate Dehydrogenase C-Reactive Protein Total Protein Albumin Arterial Blood Glucose Ur Specific [place] Urine WBC (Auto) 03/14/20 03/14/20 03/14/20 05:16 07:08 07:08 WBC 14.7 H RBC 3.30 L Hgb 9.8 L Hct 30.3 L RDW 17.3 H Lymph % (Auto) Seg Neutrophils % Seg Neuts % (Manual) Lymphocytes % (Manual) Seg Neutrophils # Seg Neutrophils # Man Lymphocytes # (Manual) PT INR D-Dimer ABG pH POC ABG pCO2 POC ABG pO2 ABG pO2 ABG HCO3 ABG O2 Saturation ABG Hemoglobin ABG Potassium ABG Chloride ABG Glucose Sodium Potassium Chloride Carbon Dioxide BUN Creatinine 0.3 L Glucose 111 H POC Glucose 116 H Ferritin Lactate Dehydrogenase C-Reactive Protein Total Protein Albumin 2.5 L Arterial Blood Glucose Ur Specific [place] Urine WBC (Auto) Chest x-ray: pending Allied health notes reviewed: nursing
[2020-03-14 11:41] LABS: Anisocytosis Few; Basophils % (Manual) 0 % (0.0-1.8); Eosinophils % (Manual) 0 % (0.0-4.3); Macrocytosis Few; Platelet Estimate Consistent w Auto; Total Cells Counted 100
--- NOTE | 2020-03-14 12:17 | Progress Note ---
Assessment and Plan Cultures: SARS CoV2 PCR: Negative 03/03/2020 blood culture: No growth 03/03/2020 sputum culture: MRSA A/P: 64-year-old male with traumatic brain injury, hypertension, indwelling tracheostomy and PEG tube, fci resident at [place] was admitted to the hospital with fever, hypoxia: #Sepsis, leucocytosis likely secondary to bilateral pneumonia. UA without significant pyuria. Patient has indwelling catheter. Urine culture likely to be positive. #MRSA pneumonia: Completed vancomycin for 8 days #Acute on chronic respiratory failure: With chronic tracheostomy. On t-piece #Hypernatremia Recs: -Completed vancomycin for 8 days -Monitor off antibiotics will sign off please call us if any question Lauren Lemon MD [facility] ([facility]) Office [phone] Subjective Date of service: 03/14/20 Principal diagnosis: Severe Sepsis; PNA; Ac on ch hypoxemic resp failure; [id number] Interval history: Patient remains on the vent via trach, no acute changes overnight. No fever. Objective - Exam Narrative Exam: General appearance: Alert in NAD Eyes: anicteric sclerae, moist conjunctivae; no lid-lag; PERRLA HENT: Normocephalic, Atraumatic; normal external ears, nares open, oropharynx limited + helmet Neck: Trach, no secretions Lungs: Bilateral rhonchi CV: RRR no murmur Abdomen: Soft, non-tender; no masses or hepatosplenomegaly Extremities: no edema, no cyanosis Skin: No rash. Psych: no agitated Neuro: alert follows commands - Constitutional Vitals: Vital Signs Temp Pulse Resp BP Pulse Ox 98.4 F 69 18 146/77 100 03/14/20 03:23 03/14/20 10:00 03/14/20 10:00 03/14/20 10:00 03/14/20 10:00 Temperature -Last 24 Hours Temperature 98.4 F Temperature 98.8 F Temperature 98.4 F - Labs CBC & Chem 7: 03/14/20 07:08 03/14/20 07:08 Labs: Abnormal lab results 03/13/20 03/14/20 03/14/20 Range/Units 23:20 05:16 07:08 WBC 14.7 H (4.5-11.0) K/mm3 RBC 3.30 L (3.65-5.03) M/mm3 Hgb 9.8 L (11.8-15.2) gm/dl Hct 30.3 L (35.5-45.6) % RDW 17.3 H (13.2-15.2) % Seg Neuts % (Manual) 87.0 H (40.0-70.0) % Lymphocytes % (Manual) 7.0 L (13.4-35.0) % Seg Neutrophils # Man 12.8 H (1.8-7.7) K/mm3 Lymphocytes # (Manual) 1.0 L (1.2-5.4) K/mm3 Monocytes # (Manual) 0.9 H (0.0-0.8) K/mm3 Creatinine (0.8-1.3) mg/dL Glucose (75-100) mg/dL POC Glucose 132 H 116 H (70-105) mg/dL Albumin (3.9-5) g/dL 03/14/20 Range/Units 07:08 WBC (4.5-11.0) K/mm3 RBC (3.65-5.03) M/mm3 Hgb (11.8-15.2) gm/dl Hct (35.5-45.6) % RDW (13.2-15.2) % Seg Neuts % (Manual) (40.0-70.0) % Lymphocytes % (Manual) (13.4-35.0) % Seg Neutrophils # Man (1.8-7.7) K/mm3 Lymphocytes # (Manual) (1.2-5.4) K/mm3 Monocytes # (Manual) (0.0-0.8) K/mm3 Creatinine 0.3 L (0.8-1.3) mg/dL Glucose 111 H (75-100) mg/dL POC Glucose (70-105) mg/dL Albumin 2.5 L (3.9-5) g/dL
[2020-03-14] MEDS: CHOLESTYRAMINE (WITH SUGAR) 4 GM PACKET PO SCH ×2 (13:33→21:35)
[2020-03-14] MEDS: SIMETHICONE 80 MG CHEW TAB PO PRN (21:46)
[2020-03-14] MEDS: ENOXAPARIN 40 MG/0.4 ML INJ SUB-Q SCH (21:47)
[2020-03-15 05:51] LABS: Hematocrit 30.2 % (35.5-45.6); Hemoglobin 10.2 gm/dl (11.8-15.2); Mean Corpuscular HGB Conc 34 % (32-34); Mean Corpuscular Volume 91 fl (84-94); Platelet Count 377 K/mm3 (140-440); Red Blood Count 3.31 M/mm3 (3.65-5.03); Red Cell Distribution Width 17.5 % (13.2-15.2)
[2020-03-15 06:15] LABS: Blood Urea Nitrogen 13 mg/dL (9-20); Calcium 9.1 mg/dL (8.4-10.2); Hemolysis Index 2
[2020-03-15 06:16] LABS: BUN/Creatinine Ratio 43
[2020-03-15 07:10] LABS: Basophils % (Manual) 0 % (0.0-1.8); Eosinophils % (Manual) 0 % (0.0-4.3); Platelet Estimate Consistent w Auto; Target Cells Rare; Total Cells Counted 100
[2020-03-15] MEDS: BUDESONIDE 0.5 MG/2 ML NEBU IH SCH ×2 (07:24→20:18)
[2020-03-15] MEDS: IPRATROPIUM/ALBUTEROL SULFATE 3 ML AMPUL.NEB IH SCH ×3 (07:24→20:18)
[2020-03-15] MEDS: ARFORMOTEROL 15 MCG/2 ML NEBU IH SCH ×2 (07:24→20:18)
[2020-03-15] MEDS: QUEtiapine 100 MG TAB PO SCH ×2 (09:48→22:26)
[2020-03-15] MEDS: CHOLESTYRAMINE (WITH SUGAR) 4 GM PACKET PO SCH ×2 (09:48→22:21)
[2020-03-15] MEDS: FAMOTIDINE 20 MG TAB FEEDTUBE SCH ×2 (09:48→22:21)
[2020-03-15] MEDS: methylPREDNISolone Sod Succinate 125 MG/2 ML INJ IV SCH ×2 (09:48→22:21)
[2020-03-15] MEDS ORDERED: SIMPLE SYRUP 15 ML FEEDTUBE PRN (10:32)
--- NOTE | 2020-03-15 12:48 | Progress Note ---
Assessment and Plan Sepsis, leucocytosis likely secondary to bilateral pneumonia. Acute and chronic hypoxemic respiratory failure, on MVS Chronic tracheostomy Bilateral pneumonia [id number] infection Oropharyngeal dysphagia s/p PEG Chronic indwelling Martinez cather h/o TBI with chronic encephalopathy Hypernatremia - LTAC evaluation recommended - begin fentanyl drip to control pain and hopefully aid weaning; will translate to fentanyl patch after 24-48 hours - continue BID Questran re: loose stools - continue Solumedrol at 60 mg IV q12h - continue care as below otherwise; - continue Seroquel for sedation / anxiolysis - continue daily SAT's and SBT assessment as tolerated - continue to rest on AC qhs during wean - continue Brovana & Pulmicort re: COPD - continue empiric steroids re: COPD exacerbation - continue contact isolation for MRSA - continue accuchecks with glycemic control per SSI (While critically ill target blood glucose of 140-180 mg/dL; avoid hypoglycemia) - sedation prn for target RASS 0 to -1 - continue to wean supplemental oxygen for target O2 sat's > 92% acutely - VAP bundle addressed - continue lung protective strategies - continue bronchodilators with pulmonary hygiene per RT - wean per pulmonary driven protocols otherwise - Free water via PEG tube for hypernatremia - Chronic martinez, catheter care - avoid nephrotoxins, renally dose all medications - continue to avoid benzodiazepine's, reduce the possibility of delirium - complete AB's per ID rec's, follow cultures and de-escalate as indicated (treat empirically for HAP; on Cefepime and Vancomycin) - prn analgesia per CPOT score - Maintenance of sleep-wake cycle, avoid delirium - continue enteral nutritional support at goal rate as tolerated - G.I. & VTE prophylaxis with Famotidine and enoxaparin - PT/OT/ROM exercises - continue mobility protocols for pressure ulcer prophylaxis - Monitor hemodynamics closely - continue other care per attending / other consultants - discharge planning ongoing concurrently .... Re-evaluate in am & prn CONDITION: CRITICAL PROGNOSIS: GUARDED CODE STATUS: FULL CODE The high probability of a clinically significant, sudden or life-threatening deterioration of the [cardiac, respiratory & neurologic] system(s) required my full and direct attention, intervention and personal management. The aggregate critical care time was [35] minutes without overlap. Time includes spent on; [x] Data Review and interpretation [x] Patient assessment and monitoring of vital signs [x] Documentation [x] Medication orders and management Subjective Date of service: 03/15/20 Principal diagnosis: Severe Sepsis; PNA; Ac on ch hypoxemic resp failure; [id number] Interval history: Patient is seen today for: Severe Sepsis; Pneumonia; Acute on chronic hypoxemic respiratory failure; Chronic tracheostomy; [id number] infection; h/o TBI with chronic encephalopathy; Hypernatremia Seen and examined at bedside; 24hour events reviewed; nursing and respiratory care staff consulted; no adverse overnight events reported to me; resting peacefully in bed; weaning tenuously and remains agitated when awake; complains of "uncontrolled pain"; no N/V/F/C Objective Vital Signs - 12hr 03/15/20 03/15/20 03/15/20 01:00 02:00 03:00 Temperature Pulse Rate 63 69 67 Pulse Rate [ Anterior Bilateral Throughout] Pulse Rate [ From Monitor] Respiratory 16 17 19 Rate Respiratory Rate [Anterior Bilateral Throughout] Blood Pressure 131/75 132/62 106/56 O2 Sat by Pulse 99 100 100 Oximetry O2 Sat by Pulse Oximetry [ Assessment] 03/15/20 03/15/20 03/15/20 04:00 05:00 06:00 Temperature 98.2 F Pulse Rate 66 83 69 Pulse Rate [ Anterior Bilateral Throughout] Pulse Rate [ 49 L From Monitor] Respiratory 26 H 22 21 Rate Respiratory Rate [Anterior Bilateral Throughout] Blood Pressure 109/56 110/66 110/57 O2 Sat by Pulse 99 100 100 Oximetry O2 Sat by Pulse 100 Oximetry [ Assessment] 03/15/20 03/15/20 03/15/20 07:00 07:20 07:24 Temperature Pulse Rate 79 74 Pulse Rate [ 82 Anterior Bilateral Throughout] Pulse Rate [ From Monitor] Respiratory 18 Rate Respiratory 30 H Rate [Anterior Bilateral Throughout] Blood Pressure 117/62 117/62 O2 Sat by Pulse 97 100 Oximetry O2 Sat by Pulse Oximetry [ Assessment] 03/15/20 03/15/20 03/15/20 08:00 09:00 09:51 Temperature Pulse Rate 81 98 H Pulse Rate [ Anterior Bilateral Throughout] Pulse Rate [ 70 From Monitor] Respiratory 20 17 Rate Respiratory Rate [Anterior Bilateral Throughout] Blood Pressure 117/62 111/60 O2 Sat by Pulse 100 100 Oximetry O2 Sat by Pulse 100 Oximetry [ Assessment] 03/15/20 03/15/20 03/15/20 09:58 10:00 11:00 Temperature Pulse Rate 59 L 60 51 L Pulse Rate [ Anterior Bilateral Throughout] Pulse Rate [ From Monitor] Respiratory 32 H 15 17 Rate Respiratory Rate [Anterior Bilateral Throughout] Blood Pressure 121/69 135/69 121/69 O2 Sat by Pulse 100 Oximetry O2 Sat by Pulse Oximetry [ Assessment] Constitutional: appears uncomfortable, other (elderly thin male with mildly increased respiratory effort at rest on MVS) Eyes: non-icteric ENT: oropharynx moist, other (+ midline Shiley tracheostomy) Neck: supple, no lymphadenopathy, no JVD Effort: mildly labored Ascultation: Bilateral: diminished breath sounds, rhonchi (scant), other (prolonged exp phase) Percussion: Bilateral: not dull Cardiovascular: regular rate and rhythm, other (S1,S2) Gastrointestinal: normoactive bowel sounds, soft, non-tender, non-distended, other (PEG in place) Integumentary: normal Extremities: no cyanosis, no edema, pulses normal Neurologic: pupils equal and round, CN II-XII normal, unable to assess, other (RUExt weakness) Psychiatric: anxious CBC and BMP: 03/15/20 04:56 03/15/20 04:56 ABG, PT/INR, D-dimer: ABG ABG pH 7.533 (7.320-7.450) H 03/10/20 04:46 POC ABG pCO2 34.1 mmHg (32.0-48.0) 03/10/20 04:46 ABG pCO2 31.0 mm Hg 03/08/20 04:30 POC ABG pO2 128.2 mmHg (83-108) H 03/10/20 04:46 ABG pO2 170.6 mm Hg (80.0-90.0) H 03/08/20 04:30 POC ABG HCO3 28 03/10/20 04:46 ABG O2 Saturation 99.2 % (95.0-99.0) H 03/08/20 04:30 PT/INR, D-dimer PT 15.9 Sec. (12.2-14.9) H 03/04/20 02:59 INR 1.29 (0.87-1.13) H 03/04/20 02:59 D-Dimer 1415.56 ng/mlDDU (0-234) H 03/03/20 22:00 Abnormal lab findings: Abnormal Labs 03/03/20 03/03/20 03/03/20 01:10 21:51 21:51 WBC 15.5 H RBC Hgb Hct 35.3 L RDW 17.9 H Lymph % (Auto) 11.6 L Seg Neutrophils % 83.7 H Seg Neuts % (Manual) Lymphocytes % (Manual) Seg Neutrophils # 13.0 H Seg Neutrophils # Man Lymphocytes # (Manual) Monocytes # (Manual) PT INR D-Dimer ABG pH POC ABG pCO2 POC ABG pO2 ABG pO2 173.4 H ABG HCO3 26.7 H ABG O2 Saturation 99.1 H ABG Hemoglobin 11.6 L ABG Potassium ABG Chloride ABG Glucose Sodium 151 H Potassium Chloride 114.4 H Carbon Dioxide BUN 29 H Creatinine 0.6 L Glucose 116 H POC Glucose Ferritin Lactate Dehydrogenase C-Reactive Protein Total Protein 8.9 H Albumin 2.8 L Arterial Blood Glucose Ur Specific [place] Urine WBC (Auto) 03/03/20 03/03/20 03/03/20 22:00 22:00 22:00 WBC RBC Hgb Hct RDW Lymph % (Auto) Seg Neutrophils % Seg Neuts % (Manual) Lymphocytes % (Manual) Seg Neutrophils # Seg Neutrophils # Man Lymphocytes # (Manual) Monocytes # (Manual) PT INR D-Dimer 1415.56 H ABG pH POC ABG pCO2 POC ABG pO2 ABG pO2 ABG HCO3 ABG O2 Saturation ABG Hemoglobin ABG Potassium ABG Chloride ABG Glucose Sodium Potassium Chloride Carbon Dioxide BUN Creatinine Glucose 106 H POC Glucose Ferritin 522.1 H Lactate Dehydrogenase 240 H C-Reactive Protein 17.20 H Total Protein Albumin Arterial Blood Glucose Ur Specific [place] Urine WBC (Auto) 03/03/20 03/04/20 03/04/20 22:15 02:59 02:59 WBC 15.2 H RBC 3.56 L Hgb 10.9 L Hct 33.4 L RDW 17.5 H Lymph % (Auto) Seg Neutrophils % Seg Neuts % (Manual) 93.0 H Lymphocytes % (Manual) 5.0 L Seg Neutrophils # Seg Neutrophils # Man 14.1 H Lymphocytes # (Manual) 0.8 L Monocytes # (Manual) PT 15.9 H INR 1.29 H D-Dimer ABG pH POC ABG pCO2 POC ABG pO2 ABG pO2 ABG HCO3 ABG O2 Saturation ABG Hemoglobin ABG Potassium ABG Chloride ABG Glucose Sodium Potassium Chloride Carbon Dioxide BUN Creatinine Glucose POC Glucose Ferritin Lactate Dehydrogenase C-Reactive Protein Total Protein Albumin Arterial Blood Glucose Ur Specific [place] 1.031 H Urine WBC (Auto) 8.0 H 03/04/20 03/04/20 03/05/20 02:59 16:16 04:00 WBC RBC Hgb Hct RDW Lymph % (Auto) Seg Neutrophils % Seg Neuts % (Manual) Lymphocytes % (Manual) Seg Neutrophils # Seg Neutrophils # Man Lymphocytes # (Manual) Monocytes # (Manual) PT INR D-Dimer ABG pH 7.451 H 7.498 H POC ABG pCO2 POC ABG pO2 ABG pO2 102.9 H 122.7 H ABG HCO3 ABG O2 Saturation ABG Hemoglobin 12.7 L 10.2 L ABG Potassium ABG Chloride ABG Glucose Sodium 152 H Potassium Chloride 116.9 H Carbon Dioxide BUN 27 H Creatinine 0.4 L Glucose 127 H POC Glucose Ferritin Lactate Dehydrogenase C-Reactive Protein Total Protein Albumin Arterial Blood Glucose Ur Specific [place] Urine WBC (Auto) 03/05/20 03/05/20 03/05/20 05:32 05:32 18:05 WBC 17.4 H RBC 3.35 L Hgb 10.3 L Hct 31.4 L RDW 17.2 H Lymph % (Auto) 10.9 L Seg Neutrophils % 85.3 H Seg Neuts % (Manual) Lymphocytes % (Manual) Seg Neutrophils # 14.8 H Seg Neutrophils # Man Lymphocytes # (Manual) Monocytes # (Manual) PT INR D-Dimer ABG pH POC ABG pCO2 POC ABG pO2 ABG pO2 ABG HCO3 ABG O2 Saturation ABG Hemoglobin ABG Potassium ABG Chloride ABG Glucose Sodium 150 H 146 H Potassium 3.4 L Chloride 115.0 H 113.7 H Carbon Dioxide 20 L BUN 29 H Creatinine 0.5 L 0.3 L Glucose POC Glucose Ferritin Lactate Dehydrogenase C-Reactive Protein Total Protein Albumin Arterial Blood Glucose Ur Specific [place] Urine WBC (Auto) 03/06/20 03/06/20 03/06/20 04:16 04:16 05:50 WBC 11.2 H RBC 3.05 L Hgb 9.2 L Hct 28.2 L RDW 16.8 H Lymph % (Auto) Seg Neutrophils % 80.0 H Seg Neuts % (Manual) Lymphocytes % (Manual) Seg Neutrophils # 9.0 H Seg Neutrophils # Man Lymphocytes # (Manual) Monocytes # (Manual) PT INR D-Dimer ABG pH POC ABG pCO2 POC ABG pO2 ABG pO2 194.8 H ABG HCO3 ABG O2 Saturation 99.3 H ABG Hemoglobin 9.2 L ABG Potassium ABG Chloride ABG Glucose Sodium 146 H Potassium 3.1 L Chloride 111.3 H Carbon Dioxide BUN Creatinine 0.4 L Glucose POC Glucose Ferritin Lactate Dehydrogenase C-Reactive Protein Total Protein Albumin Arterial Blood Glucose Ur Specific [place] Urine WBC (Auto) 03/07/20 03/07/20 03/07/20 02:54 05:47 06:03 WBC RBC 3.21 L Hgb 9.8 L Hct 28.6 L RDW 16.6 H Lymph % (Auto) Seg Neutrophils % 80.1 H Seg Neuts % (Manual) Lymphocytes % (Manual) Seg Neutrophils # 7.8 H Seg Neutrophils # Man Lymphocytes # (Manual) Monocytes # (Manual) PT INR D-Dimer ABG pH 7.504 H POC ABG pCO2 30.5 L POC ABG pO2 ABG pO2 ABG HCO3 ABG O2 Saturation ABG Hemoglobin 10.4 L ABG Potassium 2.7 L ABG Chloride 109.0 H ABG Glucose Sodium Potassium Chloride Carbon Dioxide BUN Creatinine Glucose POC Glucose 126 H Ferritin Lactate Dehydrogenase C-Reactive Protein Total Protein Albumin Arterial Blood Glucose Ur Specific [place] Urine WBC (Auto) 03/07/20 03/07/20 03/07/20 06:03 17:22 17:25 WBC RBC Hgb Hct RDW Lymph % (Auto) Seg Neutrophils % Seg Neuts % (Manual) Lymphocytes % (Manual) Seg Neutrophils # Seg Neutrophils # Man Lymphocytes # (Manual) Monocytes # (Manual) PT INR D-Dimer ABG pH POC ABG pCO2 POC ABG pO2 ABG pO2 ABG HCO3 ABG O2 Saturation ABG Hemoglobin ABG Potassium ABG Chloride ABG Glucose Sodium Potassium 2.7 L* Chloride 107.6 H Carbon Dioxide 21 L BUN 8 L Creatinine 0.3 L Glucose 129 H POC Glucose 119 H 125 H Ferritin Lactate Dehydrogenase C-Reactive Protein Total Protein Albumin Arterial Blood Glucose Ur Specific [place] Urine WBC (Auto) 03/07/20 03/08/20 03/08/20 23:30 04:30 16:56 WBC RBC Hgb Hct RDW Lymph % (Auto) Seg Neutrophils % Seg Neuts % (Manual) Lymphocytes % (Manual) Seg Neutrophils # Seg Neutrophils # Man Lymphocytes # (Manual) Monocytes # (Manual) PT INR D-Dimer ABG pH 7.513 H POC ABG pCO2 POC ABG pO2 ABG pO2 170.6 H ABG HCO3 ABG O2 Saturation 99.2 H ABG Hemoglobin 8.8 L ABG Potassium ABG Chloride ABG Glucose Sodium Potassium Chloride Carbon Dioxide BUN Creatinine Glucose POC Glucose 107 H 108 H Ferritin Lactate Dehydrogenase C-Reactive Protein Total Protein Albumin Arterial Blood Glucose Ur Specific [place] Urine WBC (Auto) 03/08/20 03/09/20 03/09/20 21:07 04:17 11:08 WBC RBC Hgb Hct RDW Lymph % (Auto) Seg Neutrophils % Seg Neuts % (Manual) Lymphocytes % (Manual) Seg Neutrophils # Seg Neutrophils # Man Lymphocytes # (Manual) Monocytes # (Manual) PT INR D-Dimer ABG pH 7.498 H POC ABG pCO2 POC ABG pO2 125.5 H ABG pO2 ABG HCO3 ABG O2 Saturation ABG Hemoglobin ABG Potassium ABG Chloride 109.0 H ABG Glucose 103 H Sodium Potassium Chloride 109.4 H Carbon Dioxide BUN 6 L Creatinine 0.3 L Glucose 121 H POC Glucose 123 H Ferritin Lactate Dehydrogenase C-Reactive Protein Total Protein Albumin 2.8 L Arterial Blood Glucose 103 H Ur Specific [place] Urine WBC (Auto) 03/10/20 03/10/20 03/10/20 04:46 08:10 08:10 WBC RBC Hgb 9.5 L Hct 28.6 L RDW Lymph % (Auto) Seg Neutrophils % Seg Neuts % (Manual) Lymphocytes % (Manual) Seg Neutrophils # Seg Neutrophils # Man Lymphocytes # (Manual) Monocytes # (Manual) PT INR D-Dimer ABG pH 7.533 H POC ABG pCO2 POC ABG pO2 128.2 H ABG pO2 ABG HCO3 ABG O2 Saturation ABG Hemoglobin 10.0 L ABG Potassium ABG Chloride ABG Glucose 110 H Sodium Potassium Chloride Carbon Dioxide BUN 5 L Creatinine 0.2 L Glucose POC Glucose Ferritin Lactate Dehydrogenase C-Reactive Protein Total Protein Albumin Arterial Blood Glucose 110 H Ur Specific [place] Urine WBC (Auto) 03/10/20 03/10/20 03/11/20 17:22 23:24 05:07 WBC RBC Hgb Hct RDW Lymph % (Auto) Seg Neutrophils % Seg Neuts % (Manual) Lymphocytes % (Manual) Seg Neutrophils # Seg Neutrophils # Man Lymphocytes # (Manual) Monocytes # (Manual) PT INR D-Dimer ABG pH POC ABG pCO2 POC ABG pO2 ABG pO2 ABG HCO3 ABG O2 Saturation ABG Hemoglobin ABG Potassium ABG Chloride ABG Glucose Sodium Potassium Chloride Carbon Dioxide BUN Creatinine Glucose POC Glucose 108 H 189 H 217 H Ferritin Lactate Dehydrogenase C-Reactive Protein Total Protein Albumin Arterial Blood Glucose Ur Specific [place] Urine WBC (Auto) 03/11/20 03/11/20 03/12/20 11:28 23:25 05:14 WBC RBC Hgb Hct RDW Lymph % (Auto) Seg Neutrophils % Seg Neuts % (Manual) Lymphocytes % (Manual) Seg Neutrophils # Seg Neutrophils # Man Lymphocytes # (Manual) Monocytes # (Manual) PT INR D-Dimer ABG pH POC ABG pCO2 POC ABG pO2 ABG pO2 ABG HCO3 ABG O2 Saturation ABG Hemoglobin ABG Potassium ABG Chloride ABG Glucose Sodium Potassium Chloride Carbon Dioxide BUN Creatinine Glucose POC Glucose 212 H 152 H 193 H Ferritin Lactate Dehydrogenase C-Reactive Protein Total Protein Albumin Arterial Blood Glucose Ur Specific [place] Urine WBC (Auto) 03/12/20 03/12/20 03/12/20 11:58 17:11 23:27 WBC RBC Hgb Hct RDW Lymph % (Auto) Seg Neutrophils % Seg Neuts % (Manual) Lymphocytes % (Manual) Seg Neutrophils # Seg Neutrophils # Man Lymphocytes # (Manual) Monocytes # (Manual) PT INR D-Dimer ABG pH POC ABG pCO2 POC ABG pO2 ABG pO2 ABG HCO3 ABG O2 Saturation ABG Hemoglobin ABG Potassium ABG Chloride ABG Glucose Sodium Potassium Chloride Carbon Dioxide BUN Creatinine Glucose POC Glucose 142 H 141 H 175 H Ferritin Lactate Dehydrogenase C-Reactive Protein Total Protein Albumin Arterial Blood Glucose Ur Specific [place] Urine WBC (Auto) 03/13/20 03/13/20 03/13/20 05:33 12:04 23:20 WBC RBC Hgb Hct RDW Lymph % (Auto) Seg Neutrophils % Seg Neuts % (Manual) Lymphocytes % (Manual) Seg Neutrophils # Seg Neutrophils # Man Lymphocytes # (Manual) Monocytes # (Manual) PT INR D-Dimer ABG pH POC ABG pCO2 POC ABG pO2 ABG pO2 ABG HCO3 ABG O2 Saturation ABG Hemoglobin ABG Potassium ABG Chloride ABG Glucose Sodium Potassium Chloride Carbon Dioxide BUN Creatinine Glucose POC Glucose 184 H 182 H 132 H Ferritin Lactate Dehydrogenase C-Reactive Protein Total Protein Albumin Arterial Blood Glucose Ur Specific [place] Urine WBC (Auto) 03/14/20 03/14/20 03/14/20 05:16 07:08 07:08 WBC 14.7 H RBC 3.30 L Hgb 9.8 L Hct 30.3 L RDW 17.3 H Lymph % (Auto) Seg Neutrophils % Seg Neuts % (Manual) 87.0 H Lymphocytes % (Manual) 7.0 L Seg Neutrophils # Seg Neutrophils # Man 12.8 H Lymphocytes # (Manual) 1.0 L Monocytes # (Manual) 0.9 H PT INR D-Dimer ABG pH POC ABG pCO2 POC ABG pO2 ABG pO2 ABG HCO3 ABG O2 Saturation ABG Hemoglobin ABG Potassium ABG Chloride ABG Glucose Sodium Potassium Chloride Carbon Dioxide BUN Creatinine 0.3 L Glucose 111 H POC Glucose 116 H Ferritin Lactate Dehydrogenase C-Reactive Protein Total Protein Albumin 2.5 L Arterial Blood Glucose Ur Specific [place] Urine WBC (Auto) 03/14/20 03/15/20 03/15/20 16:58 04:56 04:56 WBC RBC 3.31 L Hgb 10.2 L Hct 30.2 L RDW 17.5 H Lymph % (Auto) Seg Neutrophils % Seg Neuts % (Manual) 94.0 H Lymphocytes % (Manual) 4.0 L Seg Neutrophils # Seg Neutrophils # Man 9.7 H Lymphocytes # (Manual) 0.4 L Monocytes # (Manual) PT INR D-Dimer ABG pH POC ABG pCO2 POC ABG pO2 ABG pO2 ABG HCO3 ABG O2 Saturation ABG Hemoglobin ABG Potassium ABG Chloride ABG Glucose Sodium Potassium Chloride Carbon Dioxide BUN Creatinine 0.3 L Glucose 189 H POC Glucose 134 H Ferritin Lactate Dehydrogenase C-Reactive Protein Total Protein Albumin Arterial Blood Glucose Ur Specific [place] Urine WBC (Auto) 03/15/20 05:26 WBC RBC Hgb Hct RDW Lymph % (Auto) Seg Neutrophils % Seg Neuts % (Manual) Lymphocytes % (Manual) Seg Neutrophils # Seg Neutrophils # Man Lymphocytes # (Manual) Monocytes # (Manual) PT INR D-Dimer ABG pH POC ABG pCO2 POC ABG pO2 ABG pO2 ABG HCO3 ABG O2 Saturation ABG Hemoglobin ABG Potassium ABG Chloride ABG Glucose Sodium Potassium Chloride Carbon Dioxide BUN Creatinine Glucose POC Glucose 159 H Ferritin Lactate Dehydrogenase C-Reactive Protein Total Protein Albumin Arterial Blood Glucose Ur Specific [place] Urine WBC (Auto) Chest x-ray: other (none today) Allied health notes reviewed: nursing
--- NOTE | 2020-03-15 15:52 | Progress Note ---
Assessment and Plan Assessment and plan: --PUI; COVID-19 test negative on 03/04/2020 --acute on chronic hypoxic respiratory failure; Patient has chronic tracheostomy now on ventilatory support Continue nebulizers ,wean off ventilator as tolerated . Pulmonary critical following. --MRSA pneumonia; respiratory and contact isolation Completed vancomycin, continue Bactrim DS per ID --Bilateral pneumonia; Continue current antibiotics, follow cultures Ventilatory support, pulmonary and ID following --Severe hypokalemia; resolved Closely monitor lecture lites --Hypernatremia; resolved Gentle hydration supportive care --Sepsis secondary to bilateral pneumonia/UTI Continue current antibiotics, follow cultures, ID following --Severe malnutrition; hypoalbuminemia Supportive care, nutrition consult --DVT prophylaxis;Lovenox --Restrain the patient for agitation --Full CODE STATUS; We will closely monitor the patient and adjust the management as needed The high probability of a clinically significant, sudden or life threatening deterioration of the [respiratory, metabolic and infectious disease] system(s) required my full and direct attention, intervention and personal management. The aggregate critical care time was [35] minutes. This time is in addition to time spent performing reported procedures but includes the following: [x] Data Review and interpretation [x] Patient assessment and monitoring of vital signs [x] Documentation [x] Medication orders and management 03/05/2020 -Patient is admitted for acute on chronic respiratory failure and currently on and requiring mechanical ventilation. Continue with IV antibiotics for UTI and sepsis. COVID-19 test is done and is negative. Commercial Print Salesman consulted. Continue with the current management. 03/06/2020 -Patient is admitted for acute on chronic respiratory failure. Patient is on trach and vent. Patient is on IV cefepime and vancomycin per ID recommendation. Pulmonary consulted for vent and trach management. 03/07/2020; continue ventilatory support Wean off vent as tolerated, consults and recommendations noted and appreciated 03/08/2020; We will closely monitor the patient and adjust the management as needed Plan of care reviewed with the patient and his nurse MRSA pneumonia, vancomycin, contact isolation 03/09/2020; patient remains on ventilatory support, on IV antibiotics Wean off vent as tolerated, marketing regional consultant recommendations noted and appreciated Plan of care reviewed with the patient's nurse and case management 03/10/2020; chest x-ray mild improvement, remains on ventilatory support, wean off ventilator as tolerated Contact isolation for MRSA pneumonia, continue vancomycin 03/11/2020; patient remains on ventilatory support, MRSA pneumonia on vancomycin for total 8 days and de-escalate to Bactrim DS Per ID recommendations. Contact isolation, restraint for agitation as needed 03/12/2020; we will wean off ventilator as tolerated , patient is more alert and awake today Tracheostomy on vent, on contact isolation MRSA on vancomycin, will follow consultants recommendations 03/13/2020; patient completed 8 days of vancomycin, currently on Bactrim DS, remains on ventilatory support, will wean off ventilator as tolerated We will restrain restraint patient as needed 03/14/2020; unable to wean, being off ventilator as tolerated, contact isolation for MRSA pneumonia 03/15/20. patient remains on ventilatory support, MRSA pneumonia on vancomycin for total 8 days and de-escalate to Bactrim DS Per ID recommendations. Contact isolation, restraint for agitation as needed History Interval history: No new issues Hospitalist Physical - Constitutional Vitals: Temp Pulse Resp BP Pulse Ox 98.2 F 61 14 115/72 99 03/15/20 04:00 03/15/20 15:15 03/15/20 15:15 03/15/20 13:16 03/15/20 13:16 General appearance: Present: mild distress, cachectic, disheveled, other (Tracheostomy, on ventilatory support) - EENT Eyes: Present: PERRL, EOM intact ENT: hearing intact, clear oral mucosa, dentition normal - Neck Neck: Present: supple, normal ROM - Respiratory Respiratory effort: normal Respiratory: bilateral: CTA - Cardiovascular Rhythm: regular Heart Sounds: Present: S1 & S2. Absent: gallop, rub - Extremities Extremities: no ischemia, No edema, Full ROM - Abdominal General gastrointestinal: soft, non-tender, non-distended, normal bowel sounds - Integumentary Integumentary: Present: clear, warm, dry - Neurologic Neurologic: CNII-XII intact, moves all extremities Results - Labs CBC & Chem 7: 03/15/20 04:56 03/15/20 04:56 Labs: Laboratory Last Values WBC 10.3 K/mm3 (4.5-11.0) 03/15/20 04:56 RBC 3.31 M/mm3 (3.65-5.03) L 03/15/20 04:56 Hgb 10.2 gm/dl (11.8-15.2) L 03/15/20 04:56 Hct 30.2 % (35.5-45.6) L 03/15/20 04:56 MCV 91 fl (84-94) 03/15/20 04:56 MCH 31 pg (28-32) 03/15/20 04:56 MCHC 34 % (32-34) 03/15/20 04:56 RDW 17.5 % (13.2-15.2) H 03/15/20 04:56 Plt Count 377 K/mm3 (140-440) 03/15/20 04:56 Lymph % (Auto) 13.7 % (13.4-35.0) 03/07/20 06:03 [place] % (Auto) Mechanic Marine Engine 03/14/20 07:08 Eos % (Auto) 0.5 % (0.0-4.3) 03/07/20 06:03 Baso % (Auto) 0.3 % (0.0-1.8) 03/07/20 06:03 Lymph # (Auto) 1.3 K/mm3 (1.2-5.4) 03/07/20 06:03 [place] # (Auto) 0.5 K/mm3 (0.0-0.8) 03/07/20 06:03 Eos # (Auto) 0.0 K/mm3 (0.0-0.4) 03/07/20 06:03 Baso # (Auto) 0.0 K/mm3 (0.0-0.1) 03/07/20 06:03 Add Manual Diff Complete 03/15/20 04:56 Total Counted 100 03/15/20 04:56 Seg Neutrophils % Mechanic Marine Engine 03/15/20 04:56 Seg Neuts % (Manual) 94.0 % (40.0-70.0) H 03/15/20 04:56 Band Neutrophils % 0 % 03/15/20 04:56 Lymphocytes % (Manual) 4.0 % (13.4-35.0) L 03/15/20 04:56 Reactive Lymphs % (Man) 0 % 03/15/20 04:56 Monocytes % (Manual) 2.0 % (0.0-7.3) 03/15/20 04:56 Eosinophils % (Manual) 0 % (0.0-4.3) 03/15/20 04:56 Basophils % (Manual) 0 % (0.0-1.8) 03/15/20 04:56 Metamyelocytes % 0 % 03/15/20 04:56 Myelocytes % 0 % 03/15/20 04:56 Promyelocytes % 0 % 03/15/20 04:56 Blast Cells % 0 % 03/15/20 04:56 Nucleated RBC % Not Reportable 03/15/20 04:56 Seg Neutrophils # 7.8 K/mm3 (1.8-7.7) H 03/07/20 06:03 Seg Neutrophils # Man 9.7 K/mm3 (1.8-7.7) H 03/15/20 04:56 Band Neutrophils # 0.0 K/mm3 03/15/20 04:56 Lymphocytes # (Manual) 0.4 K/mm3 (1.2-5.4) L 03/15/20 04:56 Abs React Lymphs (Man) 0.0 K/mm3 03/15/20 04:56 Monocytes # (Manual) 0.2 K/mm3 (0.0-0.8) 03/15/20 04:56 Eosinophils # (Manual) 0.0 K/mm3 (0.0-0.4) 03/15/20 04:56 Basophils # (Manual) 0.0 K/mm3 (0.0-0.1) 03/15/20 04:56 Metamyelocytes # 0.0 K/mm3 03/15/20 04:56 Myelocytes # 0.0 K/mm3 03/15/20 04:56 Promyelocytes # 0.0 K/mm3 03/15/20 04:56 Blast Cells # 0.0 K/mm3 03/15/20 04:56 WBC Morphology Not Reportable 03/15/20 04:56 Hypersegmented Neuts Not Reportable 03/15/20 04:56 Hyposegmented Neuts Not Reportable 03/15/20 04:56 Hypogranular Neuts Not Reportable 03/15/20 04:56 Smudge Cells Not Reportable 03/15/20 04:56 Toxic Granulation Not Reportable 03/15/20 04:56 Toxic Vacuolation Not Reportable 03/15/20 04:56 Dohle Bodies Not Reportable 03/15/20 04:56 Pelger-Huet Anomaly Not Reportable 03/15/20 04:56 Mike Rods Not Reportable 03/15/20 04:56 Platelet Estimate Consistent w auto 03/15/20 04:56 Clumped Platelets Not Reportable 03/15/20 04:56 Plt Clumps, EDTA Not Reportable 03/15/20 04:56 Large Platelets Not Reportable 03/15/20 04:56 Giant Platelets Not Reportable 03/15/20 04:56 Platelet Satelliting Not Reportable 03/15/20 04:56 Plt Morphology Comment Not Reportable 03/15/20 04:56 RBC Morphology Not Reportable 03/15/20 04:56 Dimorphic RBCs Not Reportable 03/15/20 04:56 Polychromasia Not Reportable 03/15/20 04:56 Hypochromasia Not Reportable 03/15/20 04:56 Poikilocytosis Not Reportable 03/15/20 04:56 Anisocytosis Not Reportable 03/15/20 04:56 Microcytosis Not Reportable 03/15/20 04:56 Macrocytosis Not Reportable 03/15/20 04:56 Spherocytes Not Reportable 03/15/20 04:56 Pappenheimer Bodies Not Reportable 03/15/20 04:56 Sickle Cells Not Reportable 03/15/20 04:56 Target Cells Rare 03/15/20 04:56 Tear Drop Cells Not Reportable 03/15/20 04:56 Ovalocytes Not Reportable 03/15/20 04:56 Helmet Cells Not Reportable 03/15/20 04:56 [place] Bodies Not Reportable 03/15/20 04:56 [place] Rings Not Reportable 03/15/20 04:56 Marcos Cells Not Reportable 03/15/20 04:56 Bite Cells Not Reportable 03/15/20 04:56 Crenated Cell Not Reportable 03/15/20 04:56 Elliptocytes Not Reportable 03/15/20 04:56 Acanthocytes (Spur) Not Reportable 03/15/20 04:56 Rouleaux Not Reportable 03/15/20 04:56 Hemoglobin C Crystals Not Reportable 03/15/20 04:56 Schistocytes Not Reportable 03/15/20 04:56 Malaria parasites Not Reportable 03/15/20 04:56 Branden Bodies Not Reportable 03/15/20 04:56 Hem Pathologist Commnt No 03/15/20 04:56 PT 15.9 Sec. (12.2-14.9) H 03/04/20 02:59 INR 1.29 (0.87-1.13) H 03/04/20 02:59 D-Dimer 1415.56 ng/mlDDU (0-234) H 03/03/20 22:00 ABG pH 7.533 (7.320-7.450) H 03/10/20 04:46 POC ABG pCO2 34.1 mmHg (32.0-48.0) 03/10/20 04:46 ABG pCO2 31.0 mm Hg 03/08/20 04:30 POC ABG pO2 128.2 mmHg (83-108) H 03/10/20 04:46 ABG pO2 170.6 mm Hg (80.0-90.0) H 03/08/20 04:30 POC ABG HCO3 28 03/10/20 04:46 ABG HCO3 24.3 mmol/L (20.0-26.0) 03/08/20 04:30 ABG O2 Saturation 99.2 % (95.0-99.0) H 03/08/20 04:30 ABG O2 Content 12.4 (0.0-44) 03/08/20 04:30 POC ABG Base Excess 5.3 03/10/20 04:46 ABG Base Excess 1.6 mmol/L (-2.0-3.0) 03/08/20 04:30 ABG Hemoglobin 10.0 (12.0-17.5) L 03/10/20 04:46 ABG Carboxyhemoglobin 1.0 % (0.0-5.0) 03/08/20 04:30 ABG Methemoglobin 0.4 % (0.0-1.5) 03/08/20 04:30 ABG Sodium 137.7 mmol/L (136.0-145.0) 03/10/20 04:46 ABG Potassium 3.6 mmol/L (3.40-4.50) 03/10/20 04:46 ABG Chloride 107.0 mmol/L (98-107) 03/10/20 04:46 ABG Glucose 110 mg/dL (65-95) H 03/10/20 04:46 Oxyhemoglobin 97.7 % (95.0-99.0) 03/08/20 04:30 FiO2 28 03/10/20 04:46 Sodium 138 mmol/L (137-145) 03/15/20 04:56 Potassium 4.4 mmol/L (3.6-5.0) 03/15/20 04:56 Chloride 102.5 mmol/L (98-107) 03/15/20 04:56 Carbon Dioxide 25 mmol/L (22-30) 03/15/20 04:56 Anion Gap 15 mmol/L 03/15/20 04:56 BUN 13 mg/dL (9-20) 03/15/20 04:56 Creatinine 0.3 mg/dL (0.8-1.3) L 03/15/20 04:56 Estimated GFR > 60 ml/min 03/15/20 04:56 BUN/Creatinine Ratio 43 % 03/15/20 04:56 Glucose 189 mg/dL (75-100) H 03/15/20 04:56 POC Glucose 81 mg/dL (70-105) 03/15/20 11:59 Lactic Acid 0.80 mmol/L (0.7-2.0) 03/04/20 02:59 Calcium 9.1 mg/dL (8.4-10.2) 03/15/20 04:56 Magnesium 2.00 mg/dL (1.7-2.3) 03/14/20 07:08 Ferritin 522.1 ng/mL (30.0-300.0) H 03/03/20 22:00 Total Bilirubin 0.20 mg/dL (0.1-1.2) 03/14/20 07:08 AST 20 units/L (5-40) 03/14/20 07:08 ALT 34 units/L (7-56) 03/14/20 07:08 Alkaline Phosphatase 82 units/L (35-129) 03/14/20 07:08 Lactate Dehydrogenase 240 units/L (91-180) H 03/03/20 22:00 C-Reactive Protein 17.20 mg/dL (0.00-1.30) H 03/03/20 22:00 Total Protein 7.0 g/dL (6.3-8.2) 03/14/20 07:08 Albumin 2.5 g/dL (3.9-5) L 03/14/20 07:08 Albumin/Globulin Ratio 0.6 % 03/14/20 07:08 Procalcitonin 0.31 ng/mL (<0.15) 03/03/20 22:00 Arterial Blood Glucose 110 mg/dL (65-95) H 03/10/20 04:46 Arterial Blood Ionized Calcium 4.6 mg/dL (4.6-5.3) 03/10/20 04:46 Urine Color Bing (Yellow) 03/03/20 22:15 Urine Turbidity Clear (Clear) 03/03/20 22:15 Urine pH 5.0 (5.0-7.0) 03/03/20 22:15 Ur Specific [place] 1.031 (1.003-1.030) H 03/03/20 22:15 Urine Protein 30 mg/dl mg/dL (Negative) 03/03/20 22:15 Urine Glucose (UA) Neg mg/dL (Negative) 03/03/20 22:15 Urine Ketones Neg mg/dL (Negative) 03/03/20 22:15 Urine Blood Neg (Negative) 03/03/20 22:15 Urine Nitrite Neg (Negative) 03/03/20 22:15 Urine Bilirubin Neg (Negative) 03/03/20 22:15 Urine Urobilinogen 4.0 mg/dL (<2.0) 03/03/20 22:15 Ur Leukocyte Esterase Tr (Negative) 03/03/20 22:15 Urine WBC (Auto) 8.0 /HPF (0.0-6.0) H 03/03/20 22:15 Urine RBC (Auto) 2.0 /HPF (0.0-6.0) 03/03/20 22:15 U Epithel Cells (Auto) 1.0 /HPF (0-13.0) 03/03/20 22:15 Urine Bacteria (Auto) 1+ /HPF (Negative) 03/03/20 22:15 Hyaline Casts 1 /LPF 03/03/20 22:15 Urine Mucus 1+ /HPF 03/03/20 22:15 Vancomycin Trough 9.0 ug/mL (5.0-20.0) 03/06/20 20:15 Coronavirus (PCR) Negative (Negative) 03/04/20 09:16 Sarah/IV: Voiding Method Condom Catheter IV Catheter Type [Right Upper INT / Saline Lock arm] IV Catheter Type [Left Upper Mid-line arm] IV Catheter Type [Right Peripheral IV Forearm] Active Medications - Current Medications Current Medications: Generic Name Dose Route Start Last Admin Trade Name Freq PRN Reason Stop Dose Admin Albuterol/Ipratropium 1 ampul 03/12/20 08:00 03/15/20 15:15 Duoneb *Not For Prn Use* IH 1 ampul TIDRT KESHAWN Administration Lipase/Protease/Amylase 1 each 03/06/20 14:54 Pancreazkandice Cheney 10,500 Unit FEEDTUBE PRN PRN For Clogged Feeding Tube Arformoterol Tartrate 15 mcg 03/10/20 20:00 03/15/20 07:24 Brovana Nebu IH 15 mcg Q12HRT KESHAWN Administration Budesonide 0.5 mg 03/10/20 20:00 03/15/20 07:24 Pulmicort IH 0.5 mg Q12HRT KESHAWN Administration Cholestyramine Resin 4 gm 03/14/20 13:00 03/15/20 09:48 Questran PO 03/18/20 22:01 4 gm Q12HR KESHAWN Administration Enoxaparin Sodium 40 mg 03/04/20 22:00 03/14/20 21:47 Enoxaparin SUB-Q 40 mg QDAY@2200 [facility] Administration Protocol Famotidine 20 mg 03/09/20 11:00 03/15/20 09:48 Pepcid FEEDTUBE 20 mg BID KESHAWN Administration Fentanyl 50 mcg 03/15/20 16:00 Sublimaze IV Q10MIN PRN ANALGESIA Hydrophilic Ointment 1 applic 03/03/20 22:31 03/06/20 08:19 Vaseline Lip Therapy TP 1 applic Q2HR PRN Administration Dry Lips Fentanyl Citrate 2,000 mcg in 100 mls @ 3.17 mls/hr 03/15/20 16:00 Fentanyl Drip Premix IV TITR KESHAWN Protocol 1 MCG/KG/HR Lorazepam 1 mg 03/08/20 23:42 03/11/20 22:06 Ativan IV 1 mg Q4H PRN Administration Agitation Magnesium Hydroxide 30 ml 03/03/20 23:45 Milk Of Magnesia PO Q4H PRN Constipation Methylprednisolone Sodium Succinate 60 mg 03/14/20 22:00 03/15/20 09:48 Solu-Medrol IV 60 mg Q12HR KESHAWN Administration Morphine Sulfate 2 mg 03/03/20 23:45 03/14/20 09:09 Morphine IV 2 mg Q4H PRN Administration Pain, Moderate (4-6) Multi-Ingred Cream/Lotion/Oil/Oint 1 applic 03/03/20 22:31 Artificial Tears Ophth Oint OU Q4HR PRN Dry Eye(s) Ondansetron HCl 4 mg 03/03/20 23:45 03/05/20 16:12 Zofran IV 4 mg Q8H PRN Administration Nausea And Vomiting Quetiapine Fumarate 100 mg 03/12/20 22:00 03/15/20 09:48 Seroquel PO 100 mg BID KESHAWN Administration Simethicone 80 mg 03/11/20 09:39 03/14/20 21:46 Mylicon PO 80 mg Q6H PRN Administration Gas pain Simple Syrup 15 ml 03/06/20 14:54 Simple Syrup FEEDTUBE PRN PRN Hypoglycemia Simple Syrup 30 ml 03/06/20 14:54 Simple Syrup FEEDTUBE PRN PRN Hypoglycemia Sodium Bicarbonate 325 mg 03/06/20 14:54 Sodium Bicarbonate FEEDTUBE PRN PRN For Clogged Feeding Tube Sodium Chloride 10 ml 03/04/20 10:00 03/15/20 09:48 Sodium Chloride Flush Syringe 10 Ml IV 10 ml BID KESHAWN Administration Sodium Chloride 10 ml 03/03/20 23:45 Sodium Chloride Flush Syringe 10 Ml IV PRN PRN LINE FLUSH Nutrition/Malnutrition Assess - Dietary Evaluation Nutrition/Malnutrition Findings: Nutrition Notes Start: 03/04/20 09:15 Freq: Status: Active Protocol: Document 03/14/20 14:44 (Rec: 03/14/20 14:55 [id number]) Nutrition Notes Initial or Follow up Reassessment Current Diagnosis Sepsis,Hypertension, Respiratory Failure Other Pertinent Diagnosis Bilat pneu, sacral wound, TBI Current Diet Osmolite 1.5 at 60 ml/hr Labs/Tests Reviewed Pertinent Medications Solu-Medrol Height 6 ft 3 in Weight 63.4 kg [place] Body Weight (kg) 89.09 BMI 17.4 Weight Status Underweight Subjective/Other Information FU for TF tolerance. Per RN, pt is having diarrhea again. Percent of energy/protein needs met: 97%/100% Burn Absent Trauma Absent GI Symptoms None Current % PO Negligible Minimum of two criteria No Reduced Bridge Welder Strength Measurably Reduced (severe) #2 Nutrition Diagnosis Increased nutrient needs ( specify in comment below) Comments: Protein Diagnosis Progress(for reassessment Continues documentation) #1 Nutrition Diagnosis Inadequate oral intake Diagnosis Progress(for reassessment Continues documentation) Is patient on ventilator? Yes Is Patient Ambulatory and/or Out of Bed No REE-([facility]-confined to bed) 1816.932 Kcal/Kg value to use for calculation 35 Approximate Energy Requirements Using 2219 kcal/Kg Calculation Used for Recommendations Kcal/kg Additional Notes Pro needs 1.25-2g/k-127g/ day Fluid needs 1ml/kcal Nutrition Intervention Change Diet Order: Change TF Nutrition Support: Vital AF 1.2 at 70 ml/hr Flush 125 ml q4h Kcal 2,016 Protein (gm) 126 Fluid (mL) 1,363 Goal #1 TF tolerance Goal #2 TF (at goal rate) to meet 100% energy and pro needs Goal #3 Wt maintenance and/or gain Goal #4 Wound healing Anticipated Discharge Needs: Continue TF Follow-Up By: 03/16/20 Additional Comments FU for TF start/tolerance
[2020-03-15] MEDS ORDERED: fentaNYL DRIP Premix 2,000 MCG/100 ML BAG IV SCH (16:00)
[2020-03-15] MEDS ORDERED: fentaNYL 100 MCG/2 ML INJ IV PRN (16:00)
[2020-03-15] MEDS: ENOXAPARIN 40 MG/0.4 ML INJ SUB-Q SCH (22:21)
[2020-03-15] MEDS: LORazepam 2 MG/ML VIAL IV PRN (22:21)
[2020-03-16] MEDS: BUDESONIDE 0.5 MG/2 ML NEBU IH SCH ×2 (07:31→21:14)
[2020-03-16] MEDS: ARFORMOTEROL 15 MCG/2 ML NEBU IH SCH ×2 (07:31→21:13)
[2020-03-16] MEDS: IPRATROPIUM/ALBUTEROL SULFATE 3 ML AMPUL.NEB IH SCH ×3 (07:31→21:14)
--- NOTE | 2020-03-16 09:31 | Progress Note ---
Assessment and Plan Assessment and plan: --PUI; COVID-19 test negative on 03/04/2020 --acute on chronic hypoxic respiratory failure; Patient has chronic tracheostomy now on ventilatory support Continue nebulizers ,wean off ventilator as tolerated . Pulmonary critical following. --MRSA pneumonia; respiratory and contact isolation Completed vancomycin, continue Bactrim DS per ID --Bilateral pneumonia; Continue current antibiotics, follow cultures Ventilatory support, pulmonary and ID following --Severe hypokalemia; resolved Closely monitor lecture lites --Hypernatremia; resolved Gentle hydration supportive care --Sepsis secondary to bilateral pneumonia/UTI Continue current antibiotics, follow cultures, ID following --Severe malnutrition; hypoalbuminemia Supportive care, nutrition consult --DVT prophylaxis;Lovenox --Restrain the patient for agitation --Full CODE STATUS; We will closely monitor the patient and adjust the management as needed 03/05/2020 -Patient is admitted for acute on chronic respiratory failure and currently on and requiring mechanical ventilation. Continue with IV antibiotics for UTI and sepsis. COVID-19 test is done and is negative. Etl Application Developer consulted. Continue with the current management. 03/06/2020 -Patient is admitted for acute on chronic respiratory failure. Patient is on trach and vent. Patient is on IV cefepime and vancomycin per ID recommendation. Pulmonary consulted for vent and trach management. 03/07/2020; continue ventilatory support Wean off vent as tolerated, consults and recommendations noted and appreciated 03/08/2020; We will closely monitor the patient and adjust the management as needed Plan of care reviewed with the patient and his nurse MRSA pneumonia, vancomycin, contact isolation 03/09/2020; patient remains on ventilatory support, on IV antibiotics Wean off vent as tolerated, product management consultant recommendations noted and appreciated Plan of care reviewed with the patient's nurse and case management 03/10/2020; chest x-ray mild improvement, remains on ventilatory support, wean off ventilator as tolerated Contact isolation for MRSA pneumonia, continue vancomycin 03/11/2020; patient remains on ventilatory support, MRSA pneumonia on vancomycin for total 8 days and de-escalate to Bactrim DS Per ID recommendations. Contact isolation, restraint for agitation as needed 03/12/2020; we will wean off ventilator as tolerated , patient is more alert and awake today Tracheostomy on vent, on contact isolation MRSA on vancomycin, will follow consultants recommendations 03/13/2020; patient completed 8 days of vancomycin, currently on Bactrim DS, remains on ventilatory support, will wean off ventilator as tolerated We will restrain restraint patient as needed 03/14/2020; unable to wean, being off ventilator as tolerated, contact isolation for MRSA pneumonia 03/15/20. patient remains on ventilatory support, MRSA pneumonia on vancomycin for total 8 days (completed) and de-escalate to Bactrim DS Per ID recommendations. Contact isolation, restraint for agitation as needed 03/16/2020. Patient with PSV trialtidal volume 500 / with an FiO2 of 28%. T-piece trials as tolerated. Monitor off antibiotics per ID recommendations. Continue IV steroids and wean per pulmonary recommendations. The high probability of a clinically significant, sudden or life threatening deterioration of the [respiratory, metabolic and infectious disease] system(s) required my full and direct attention, intervention and personal management. The aggregate critical care time was [31] minutes. This time is in addition to time spent performing reported procedures but includes the following: [x] Data Review and interpretation [x] Patient assessment and monitoring of vital signs [x] Documentation [x] Medication orders and management History Interval history: No new issues Hospitalist Physical - Constitutional Vitals: Temp Pulse Resp BP Pulse Ox 98.0 F 89 13 141/79 97 03/16/20 04:00 03/16/20 09:01 03/16/20 09:01 03/16/20 09:01 03/16/20 09:01 General appearance: Present: mild distress, cachectic, disheveled, other (Tracheostomy, on ventilatory support) - EENT Eyes: Present: PERRL, EOM intact ENT: hearing intact, clear oral mucosa, dentition normal - Neck Neck: Present: supple, normal ROM - Respiratory Respiratory effort: normal Respiratory: bilateral: CTA - Cardiovascular Rhythm: regular Heart Sounds: Present: S1 & S2. Absent: gallop, rub - Extremities Extremities: no ischemia, No edema, Full ROM - Abdominal General gastrointestinal: soft, non-tender, non-distended, normal bowel sounds - Integumentary Integumentary: Present: clear, warm, dry - Neurologic Neurologic: CNII-XII intact, moves all extremities Results - Labs CBC & Chem 7: 03/15/20 04:56 03/15/20 04:56 Labs: Laboratory Last Values WBC 10.3 K/mm3 (4.5-11.0) 03/15/20 04:56 RBC 3.31 M/mm3 (3.65-5.03) L 03/15/20 04:56 Hgb 10.2 gm/dl (11.8-15.2) L 03/15/20 04:56 Hct 30.2 % (35.5-45.6) L 03/15/20 04:56 MCV 91 fl (84-94) 03/15/20 04:56 MCH 31 pg (28-32) 03/15/20 04:56 MCHC 34 % (32-34) 03/15/20 04:56 RDW 17.5 % (13.2-15.2) H 03/15/20 04:56 Plt Count 377 K/mm3 (140-440) 03/15/20 04:56 Lymph % (Auto) 13.7 % (13.4-35.0) 03/07/20 06:03 Forrest % (Auto) No Experience 03/14/20 07:08 Eos % (Auto) 0.5 % (0.0-4.3) 03/07/20 06:03 Baso % (Auto) 0.3 % (0.0-1.8) 03/07/20 06:03 Lymph # (Auto) 1.3 K/mm3 (1.2-5.4) 03/07/20 06:03 Forrest # (Auto) 0.5 K/mm3 (0.0-0.8) 03/07/20 06:03 Eos # (Auto) 0.0 K/mm3 (0.0-0.4) 03/07/20 06:03 Baso # (Auto) 0.0 K/mm3 (0.0-0.1) 03/07/20 06:03 Add Manual Diff Complete 03/15/20 04:56 Total Counted 100 03/15/20 04:56 Seg Neutrophils % No Experience 03/15/20 04:56 Seg Neuts % (Manual) 94.0 % (40.0-70.0) H 03/15/20 04:56 Band Neutrophils % 0 % 03/15/20 04:56 Lymphocytes % (Manual) 4.0 % (13.4-35.0) L 03/15/20 04:56 Reactive Lymphs % (Man) 0 % 03/15/20 04:56 Monocytes % (Manual) 2.0 % (0.0-7.3) 03/15/20 04:56 Eosinophils % (Manual) 0 % (0.0-4.3) 03/15/20 04:56 Basophils % (Manual) 0 % (0.0-1.8) 03/15/20 04:56 Metamyelocytes % 0 % 03/15/20 04:56 Myelocytes % 0 % 03/15/20 04:56 Promyelocytes % 0 % 03/15/20 04:56 Blast Cells % 0 % 03/15/20 04:56 Nucleated RBC % Not Reportable 03/15/20 04:56 Seg Neutrophils # 7.8 K/mm3 (1.8-7.7) H 03/07/20 06:03 Seg Neutrophils # Man 9.7 K/mm3 (1.8-7.7) H 03/15/20 04:56 Band Neutrophils # 0.0 K/mm3 03/15/20 04:56 Lymphocytes # (Manual) 0.4 K/mm3 (1.2-5.4) L 03/15/20 04:56 Abs React Lymphs (Man) 0.0 K/mm3 03/15/20 04:56 Monocytes # (Manual) 0.2 K/mm3 (0.0-0.8) 03/15/20 04:56 Eosinophils # (Manual) 0.0 K/mm3 (0.0-0.4) 03/15/20 04:56 Basophils # (Manual) 0.0 K/mm3 (0.0-0.1) 03/15/20 04:56 Metamyelocytes # 0.0 K/mm3 03/15/20 04:56 Myelocytes # 0.0 K/mm3 03/15/20 04:56 Promyelocytes # 0.0 K/mm3 03/15/20 04:56 Blast Cells # 0.0 K/mm3 03/15/20 04:56 WBC Morphology Not Reportable 03/15/20 04:56 Hypersegmented Neuts Not Reportable 03/15/20 04:56 Hyposegmented Neuts Not Reportable 03/15/20 04:56 Hypogranular Neuts Not Reportable 03/15/20 04:56 Smudge Cells Not Reportable 03/15/20 04:56 Toxic Granulation Not Reportable 03/15/20 04:56 Toxic Vacuolation Not Reportable 03/15/20 04:56 Dohle Bodies Not Reportable 03/15/20 04:56 Pelger-Huet Anomaly Not Reportable 03/15/20 04:56 Mike Rods Not Reportable 03/15/20 04:56 Platelet Estimate Consistent w auto 03/15/20 04:56 Clumped Platelets Not Reportable 03/15/20 04:56 Plt Clumps, EDTA Not Reportable 03/15/20 04:56 Large Platelets Not Reportable 03/15/20 04:56 Giant Platelets Not Reportable 03/15/20 04:56 Platelet Satelliting Not Reportable 03/15/20 04:56 Plt Morphology Comment Not Reportable 03/15/20 04:56 RBC Morphology Not Reportable 03/15/20 04:56 Dimorphic RBCs Not Reportable 03/15/20 04:56 Polychromasia Not Reportable 03/15/20 04:56 Hypochromasia Not Reportable 03/15/20 04:56 Poikilocytosis Not Reportable 03/15/20 04:56 Anisocytosis Not Reportable 03/15/20 04:56 Microcytosis Not Reportable 03/15/20 04:56 Macrocytosis Not Reportable 03/15/20 04:56 Spherocytes Not Reportable 03/15/20 04:56 Pappenheimer Bodies Not Reportable 03/15/20 04:56 Sickle Cells Not Reportable 03/15/20 04:56 Target Cells Rare 03/15/20 04:56 Tear Drop Cells Not Reportable 03/15/20 04:56 Ovalocytes Not Reportable 03/15/20 04:56 Helmet Cells Not Reportable 03/15/20 04:56 Watkins-Krupp Bodies Not Reportable 03/15/20 04:56 [place] Rings Not Reportable 03/15/20 04:56 Marcos Cells Not Reportable 03/15/20 04:56 Bite Cells Not Reportable 03/15/20 04:56 Crenated Cell Not Reportable 03/15/20 04:56 Elliptocytes Not Reportable 03/15/20 04:56 Acanthocytes (Spur) Not Reportable 03/15/20 04:56 Rouleaux Not Reportable 03/15/20 04:56 Hemoglobin C Crystals Not Reportable 03/15/20 04:56 Schistocytes Not Reportable 03/15/20 04:56 Malaria parasites Not Reportable 03/15/20 04:56 Branden Bodies Not Reportable 03/15/20 04:56 Hem Pathologist Commnt No 03/15/20 04:56 PT 15.9 Sec. (12.2-14.9) H 03/04/20 02:59 INR 1.29 (0.87-1.13) H 03/04/20 02:59 D-Dimer 1415.56 ng/mlDDU (0-234) H 03/03/20 22:00 ABG pH 7.533 (7.320-7.450) H 03/10/20 04:46 POC ABG pCO2 34.1 mmHg (32.0-48.0) 03/10/20 04:46 ABG pCO2 31.0 mm Hg 03/08/20 04:30 POC ABG pO2 128.2 mmHg (83-108) H 03/10/20 04:46 ABG pO2 170.6 mm Hg (80.0-90.0) H 03/08/20 04:30 POC ABG HCO3 28 03/10/20 04:46 ABG HCO3 24.3 mmol/L (20.0-26.0) 03/08/20 04:30 ABG O2 Saturation 99.2 % (95.0-99.0) H 03/08/20 04:30 ABG O2 Content 12.4 (0.0-44) 03/08/20 04:30 POC ABG Base Excess 5.3 03/10/20 04:46 ABG Base Excess 1.6 mmol/L (-2.0-3.0) 03/08/20 04:30 ABG Hemoglobin 10.0 (12.0-17.5) L 03/10/20 04:46 ABG Carboxyhemoglobin 1.0 % (0.0-5.0) 03/08/20 04:30 ABG Methemoglobin 0.4 % (0.0-1.5) 03/08/20 04:30 ABG Sodium 137.7 mmol/L (136.0-145.0) 03/10/20 04:46 ABG Potassium 3.6 mmol/L (3.40-4.50) 03/10/20 04:46 ABG Chloride 107.0 mmol/L (98-107) 03/10/20 04:46 ABG Glucose 110 mg/dL (65-95) H 03/10/20 04:46 Oxyhemoglobin 97.7 % (95.0-99.0) 03/08/20 04:30 FiO2 28 03/10/20 04:46 Sodium 138 mmol/L (137-145) 03/15/20 04:56 Potassium 4.4 mmol/L (3.6-5.0) 03/15/20 04:56 Chloride 102.5 mmol/L (98-107) 03/15/20 04:56 Carbon Dioxide 25 mmol/L (22-30) 03/15/20 04:56 Anion Gap 15 mmol/L 03/15/20 04:56 BUN 13 mg/dL (9-20) 03/15/20 04:56 Creatinine 0.3 mg/dL (0.8-1.3) L 03/15/20 04:56 Estimated GFR > 60 ml/min 03/15/20 04:56 BUN/Creatinine Ratio 43 % 03/15/20 04:56 Glucose 189 mg/dL (75-100) H 03/15/20 04:56 POC Glucose 149 mg/dL (70-105) H 03/16/20 05:23 Lactic Acid 0.80 mmol/L (0.7-2.0) 03/04/20 02:59 Calcium 9.1 mg/dL (8.4-10.2) 03/15/20 04:56 Magnesium 2.00 mg/dL (1.7-2.3) 03/14/20 07:08 Ferritin 522.1 ng/mL (30.0-300.0) H 03/03/20 22:00 Total Bilirubin 0.20 mg/dL (0.1-1.2) 03/14/20 07:08 AST 20 units/L (5-40) 03/14/20 07:08 ALT 34 units/L (7-56) 03/14/20 07:08 Alkaline Phosphatase 82 units/L (35-129) 03/14/20 07:08 Lactate Dehydrogenase 240 units/L (91-180) H 03/03/20 22:00 C-Reactive Protein 17.20 mg/dL (0.00-1.30) H 03/03/20 22:00 Total Protein 7.0 g/dL (6.3-8.2) 03/14/20 07:08 Albumin 2.5 g/dL (3.9-5) L 03/14/20 07:08 Albumin/Globulin Ratio 0.6 % 03/14/20 07:08 Procalcitonin 0.31 ng/mL (<0.15) 03/03/20 22:00 Arterial Blood Glucose 110 mg/dL (65-95) H 03/10/20 04:46 Arterial Blood Ionized Calcium 4.6 mg/dL (4.6-5.3) 03/10/20 04:46 Urine Color Bing (Yellow) 03/03/20 22:15 Urine Turbidity Clear (Clear) 03/03/20 22:15 Urine pH 5.0 (5.0-7.0) 03/03/20 22:15 Ur Specific Josephine 1.031 (1.003-1.030) H 03/03/20 22:15 Urine Protein 30 mg/dl mg/dL (Negative) 03/03/20 22:15 Urine Glucose (UA) Neg mg/dL (Negative) 03/03/20 22:15 Urine Ketones Neg mg/dL (Negative) 03/03/20 22:15 Urine Blood Neg (Negative) 03/03/20 22:15 Urine Nitrite Neg (Negative) 03/03/20 22:15 Urine Bilirubin Neg (Negative) 03/03/20 22:15 Urine Urobilinogen 4.0 mg/dL (<2.0) 03/03/20 22:15 Ur Leukocyte Esterase Tr (Negative) 03/03/20 22:15 Urine WBC (Auto) 8.0 /HPF (0.0-6.0) H 03/03/20 22:15 Urine RBC (Auto) 2.0 /HPF (0.0-6.0) 03/03/20 22:15 U Epithel Cells (Auto) 1.0 /HPF (0-13.0) 03/03/20 22:15 Urine Bacteria (Auto) 1+ /HPF (Negative) 03/03/20 22:15 Hyaline Casts 1 /LPF 03/03/20 22:15 Urine Mucus 1+ /HPF 03/03/20 22:15 Vancomycin Trough 9.0 ug/mL (5.0-20.0) 03/06/20 20:15 Coronavirus (PCR) Negative (Negative) 03/04/20 09:16 Sarah/IV: Voiding Method Condom Catheter IV Catheter Type [Right Upper INT / Saline Lock arm] IV Catheter Type [Left Upper Mid-line arm] IV Catheter Type [Right Peripheral IV Forearm] Active Medications - Current Medications Current Medications: Generic Name Dose Route Start Last Admin Trade Name Freq PRN Reason Stop Dose Admin Albuterol/Ipratropium 1 ampul 03/12/20 08:00 03/16/20 07:31 Duoneb *Not For Prn Use* IH 1 ampul TIDRT KESHAWN Administration Lipase/Protease/Amylase 1 each 03/06/20 14:54 Pancreирина Cheney 10,500 Unit FEEDTUBE PRN PRN For Clogged Feeding Tube Arformoterol Tartrate 15 mcg 03/10/20 20:00 03/16/20 07:31 Brovana Nebu IH 15 mcg Q12HRT KESHAWN Administration Budesonide 0.5 mg 03/10/20 20:00 03/16/20 07:31 Pulmicort IH 0.5 mg Q12HRT KESHAWN Administration Cholestyramine Resin 4 gm 03/14/20 13:00 03/15/20 22:21 Questran PO 03/18/20 22:01 4 gm Q12HR KESHAWN Administration Enoxaparin Sodium 40 mg 03/04/20 22:00 03/15/20 22:21 Enoxaparin SUB-Q 40 mg QDAY@2200 KESHAWN Administration Protocol Famotidine 20 mg 03/09/20 11:00 03/15/20 22:21 Pepcid FEEDTUBE 20 mg BID KESHAWN Administration Fentanyl 50 mcg 03/15/20 16:00 Sublimaze IV Q10MIN PRN ANALGESIA Hydrophilic Ointment 1 applic 03/03/20 22:31 03/06/20 08:19 Vaseline Lip Therapy TP 1 applic Q2HR PRN Administration Dry Lips Fentanyl Citrate 2,000 mcg in 100 mls @ 3.17 mls/hr 03/15/20 16:00 03/16/20 08:05 Fentanyl Drip Premix IV 0 mcg/kg/hr TITR KESHAWN 0 mls/hr Titration Protocol 1 MCG/KG/HR Lorazepam 1 mg 03/08/20 23:42 03/15/20 22:21 Ativan IV 1 mg Q4H PRN Administration Agitation Magnesium Hydroxide 30 ml 03/03/20 23:45 Milk Of Magnesia PO Q4H PRN Constipation Methylprednisolone Sodium Succinate 60 mg 03/14/20 22:00 03/15/20 22:21 Solu-Medrol IV 60 mg Q12HR KESHAWN Administration Morphine Sulfate 2 mg 03/03/20 23:45 03/14/20 09:09 Morphine IV 2 mg Q4H PRN Administration Pain, Moderate (4-6) Multi-Ingred Cream/Lotion/Oil/Oint 1 applic 03/03/20 22:31 Artificial Tears Ophth Oint OU Q4HR PRN Dry Eye(s) Ondansetron HCl 4 mg 03/03/20 23:45 03/05/20 16:12 Zofran IV 4 mg Q8H PRN Administration Nausea And Vomiting Quetiapine Fumarate 100 mg 03/12/20 22:00 03/15/20 22:26 Seroquel PO 100 mg BID KESHAWN Administration Simethicone 80 mg 03/11/20 09:39 03/14/20 21:46 Mylicon PO 80 mg Q6H PRN Administration Gas pain Simple Syrup 15 ml 03/06/20 14:54 Simple Syrup FEEDTUBE PRN PRN Hypoglycemia Simple Syrup 30 ml 03/06/20 14:54 Simple Syrup FEEDTUBE PRN PRN Hypoglycemia Sodium Bicarbonate 325 mg 03/06/20 14:54 Sodium Bicarbonate FEEDTUBE PRN PRN For Clogged Feeding Tube Sodium Chloride 10 ml 03/04/20 10:00 03/15/20 22:21 Sodium Chloride Flush Syringe 10 Ml IV 10 ml BID KEHSAWN Administration Sodium Chloride 10 ml 03/03/20 23:45 Sodium Chloride Flush Syringe 10 Ml IV PRN PRN LINE FLUSH Nutrition/Malnutrition Assess - Dietary Evaluation Nutrition/Malnutrition Findings: Nutrition Notes Start: 03/04/20 09:15 Freq: Status: Active Protocol: Document 03/14/20 14:44 MK (Rec: 03/14/20 14:55 MK [id number]) Nutrition Notes Initial or Follow up Reassessment Current Diagnosis Sepsis,Hypertension, Respiratory Failure Other Pertinent Diagnosis Bilat pneu, sacral wound, TBI Current Diet Osmolite 1.5 at 60 ml/hr Labs/Tests Reviewed Pertinent Medications Solu-Medrol Height 6 ft 3 in Weight 63.4 kg [place] Body Weight (kg) 89.09 BMI 17.4 Weight Status Underweight Subjective/Other Information FU for TF tolerance. Per RN, pt is having diarrhea again. 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 Yes Is Patient Ambulatory and/or Out of Bed No REE-([facility]-confined to bed) 1816.932 Kcal/Kg value to use for calculation 35 Approximate Energy Requirements Using 2219 kcal/Kg Calculation Used for Recommendations Kcal/kg Additional Notes Pro needs 1.25-2g/k-127g/ day Fluid needs 1ml/kcal Nutrition Intervention Change Diet Order: Change TF Nutrition Support: Vital AF 1.2 at 70 ml/hr Flush 125 ml q4h Kcal 2,016 Protein (gm) 126 Fluid (mL) 1,363 Goal #1 TF tolerance Goal #2 TF (at goal rate) to meet 100% energy and pro needs Goal #3 Wt maintenance and/or gain Goal #4 Wound healing Anticipated Discharge Needs: Continue TF Follow-Up By: 03/16/20 Additional Comments FU for TF start/tolerance
[2020-03-16] MEDS: methylPREDNISolone Sod Succinate 125 MG/2 ML INJ IV SCH ×2 (09:40→21:23)
[2020-03-16] MEDS: QUEtiapine 100 MG TAB PO SCH ×2 (09:40→21:23)
[2020-03-16] MEDS: FAMOTIDINE 20 MG TAB FEEDTUBE SCH ×2 (09:40→21:23)
[2020-03-16] MEDS: CHOLESTYRAMINE (WITH SUGAR) 4 GM PACKET PO SCH ×2 (09:42→21:22)
--- NOTE | 2020-03-16 12:15 | Progress Note ---
Assessment and Plan Sepsis, leucocytosis likely secondary to bilateral pneumonia. Acute and chronic hypoxemic respiratory failure, on MVS Chronic tracheostomy Bilateral pneumonia [id number] infection Oropharyngeal dysphagia s/p PEG Chronic indwelling Amrtinez cather h/o TBI with chronic encephalopathy Hypernatremia - continue LTAC evaluation - transition fentanyl drip to patch - continue BID Questran re: loose stools - continue Solumedrol at 60 mg IV q12h - continue care as below otherwise; - continue Seroquel for sedation / anxiolysis - continue daily SAT's and SBT assessment as tolerated - continue to rest on AC qhs during wean - continue Brovana & Pulmicort re: COPD - continue empiric steroids re: COPD exacerbation - continue contact isolation for MRSA - continue accuchecks with glycemic control per SSI (While critically ill target blood glucose of 140-180 mg/dL; avoid hypoglycemia) - sedation prn for target RASS 0 to -1 - continue to wean supplemental oxygen for target O2 sat's > 92% acutely - VAP bundle addressed - continue lung protective strategies - continue bronchodilators with pulmonary hygiene per RT - wean per pulmonary driven protocols otherwise - Free water via PEG tube for hypernatremia - Chronic martinez, catheter care - avoid nephrotoxins, renally dose all medications - continue to avoid benzodiazepine's, reduce the possibility of delirium - complete AB's per ID rec's, follow cultures and de-escalate as indicated (treat empirically for HAP; on Cefepime and Vancomycin) - prn analgesia per CPOT score - Maintenance of sleep-wake cycle, avoid delirium - continue enteral nutritional support at goal rate as tolerated - G.I. & VTE prophylaxis with Famotidine and enoxaparin - PT/OT/ROM exercises - continue mobility protocols for pressure ulcer prophylaxis - Monitor hemodynamics closely - continue other care per attending / other consultants - discharge planning ongoing concurrently .... Re-evaluate in am & prn CONDITION: CRITICAL PROGNOSIS: GUARDED CODE STATUS: FULL CODE The high probability of a clinically significant, sudden or life-threatening deterioration of the [cardiac, respiratory & neurologic] system(s) required my full and direct attention, intervention and personal management. The aggregate critical care time was [32] minutes without overlap. Time includes spent on; [x] Data Review and interpretation [x] Patient assessment and monitoring of vital signs [x] Documentation [x] Medication orders and management Subjective Date of service: 03/16/20 Principal diagnosis: Severe Sepsis; PNA; Ac on ch hypoxemic resp failure; [id number] Interval history: Patient is seen today for: Severe Sepsis; Pneumonia; Acute on chronic hypoxemic respiratory failure; Chronic tracheostomy; [id number] infection; h/o TBI with chronic encephalopathy; Hypernatremia Seen and examined at bedside; 24hour events reviewed; nursing and respiratory care staff consulted; no adverse overnight events reported to me; resting peacefully in bed; remains on MVS; weaning tenuously; no N/V/F/C Objective Vital Signs - 12hr 03/16/20 03/16/20 03/16/20 01:00 02:00 02:16 Temperature Pulse Rate 52 L 59 L 60 Pulse Rate [ Anterior Bilateral Throughout] Pulse Rate [ Bilateral] Pulse Rate [ From Monitor] Respiratory 14 14 Rate Respiratory Rate [Anterior Bilateral Throughout] Respiratory Rate [Bilateral ] Blood Pressure 128/71 132/72 O2 Sat by Pulse 100 99 Oximetry 03/16/20 03/16/20 03/16/20 03:00 04:00 05:00 Temperature 98.0 F Pulse Rate 62 79 78 Pulse Rate [ Anterior Bilateral Throughout] Pulse Rate [ Bilateral] Pulse Rate [ From Monitor] Respiratory 13 14 12 Rate Respiratory Rate [Anterior Bilateral Throughout] Respiratory Rate [Bilateral ] Blood Pressure 137/78 137/88 128/67 O2 Sat by Pulse 99 98 100 Oximetry 03/16/20 03/16/20 03/16/20 06:00 07:00 08:00 Temperature 97.3 F L Pulse Rate 61 56 L 60 Pulse Rate [ Anterior Bilateral Throughout] Pulse Rate [ Bilateral] Pulse Rate [ 79 From Monitor] Respiratory 13 13 12 Rate Respiratory Rate [Anterior Bilateral Throughout] Respiratory Rate [Bilateral ] Blood Pressure 129/72 126/61 129/72 O2 Sat by Pulse 100 99 100 Oximetry 03/16/20 03/16/20 03/16/20 08:01 08:03 08:16 Temperature 97.3 F L Pulse Rate 79 Pulse Rate [ 59 L Anterior Bilateral Throughout] Pulse Rate [ 59 L Bilateral] Pulse Rate [ From Monitor] Respiratory 11 L Rate Respiratory 14 Rate [Anterior Bilateral Throughout] Respiratory 18 Rate [Bilateral ] Blood Pressure 126/61 O2 Sat by Pulse 100 Oximetry 03/16/20 03/16/20 03/16/20 09:01 10:00 11:01 Temperature Pulse Rate 89 61 72 Pulse Rate [ Anterior Bilateral Throughout] Pulse Rate [ Bilateral] Pulse Rate [ From Monitor] Respiratory 13 11 L 20 Rate Respiratory Rate [Anterior Bilateral Throughout] Respiratory Rate [Bilateral ] Blood Pressure 141/79 129/56 129/56 O2 Sat by Pulse 97 96 98 Oximetry 03/16/20 11:43 Temperature Pulse Rate 72 Pulse Rate [ Anterior Bilateral Throughout] Pulse Rate [ Bilateral] Pulse Rate [ From Monitor] Respiratory 20 Rate Respiratory Rate [Anterior Bilateral Throughout] Respiratory Rate [Bilateral ] Blood Pressure 129/56 O2 Sat by Pulse 98 Oximetry Constitutional: appears uncomfortable, other (elderly thin male with mildly increased respiratory effort at rest on MVS) Eyes: non-icteric ENT: oropharynx moist, other (+ midline Shiley tracheostomy) Neck: supple, no lymphadenopathy, no JVD Effort: mildly labored Ascultation: Bilateral: diminished breath sounds, rhonchi (scant), other (prolonged exp phase) Percussion: Bilateral: not dull Cardiovascular: regular rate and rhythm, other (S1,S2) Gastrointestinal: normoactive bowel sounds, soft, non-tender, non-distended, other (PEG in place) Integumentary: normal Extremities: no cyanosis, no edema, pulses normal Neurologic: pupils equal and round, CN II-XII normal, unable to assess, other (RUExt weakness) Psychiatric: anxious CBC and BMP: 03/15/20 04:56 03/19/20 08:28 ABG, PT/INR, D-dimer: ABG ABG pH 7.533 (7.320-7.450) H 03/10/20 04:46 POC ABG pCO2 34.1 mmHg (32.0-48.0) 03/10/20 04:46 ABG pCO2 31.0 mm Hg 03/08/20 04:30 POC ABG pO2 128.2 mmHg (83-108) H 03/10/20 04:46 ABG pO2 170.6 mm Hg (80.0-90.0) H 03/08/20 04:30 POC ABG HCO3 28 03/10/20 04:46 ABG O2 Saturation 99.2 % (95.0-99.0) H 03/08/20 04:30 PT/INR, D-dimer PT 15.9 Sec. (12.2-14.9) H 03/04/20 02:59 INR 1.29 (0.87-1.13) H 03/04/20 02:59 D-Dimer 1415.56 ng/mlDDU (0-234) H 03/03/20 22:00 Abnormal lab findings: Abnormal Labs 03/03/20 03/03/20 03/03/20 01:10 21:51 21:51 WBC 15.5 H RBC Hgb Hct 35.3 L RDW 17.9 H Lymph % (Auto) 11.6 L Seg Neutrophils % 83.7 H Seg Neuts % (Manual) Lymphocytes % (Manual) Seg Neutrophils # 13.0 H Seg Neutrophils # Man Lymphocytes # (Manual) Monocytes # (Manual) PT INR D-Dimer ABG pH POC ABG pCO2 POC ABG pO2 ABG pO2 173.4 H ABG HCO3 26.7 H ABG O2 Saturation 99.1 H ABG Hemoglobin 11.6 L ABG Potassium ABG Chloride ABG Glucose Sodium 151 H Potassium Chloride 114.4 H Carbon Dioxide BUN 29 H Creatinine 0.6 L Glucose 116 H POC Glucose Ferritin Lactate Dehydrogenase C-Reactive Protein Total Protein 8.9 H Albumin 2.8 L Arterial Blood Glucose Ur Specific [place] Urine WBC (Auto) 03/03/20 03/03/20 03/03/20 22:00 22:00 22:00 WBC RBC Hgb Hct RDW Lymph % (Auto) Seg Neutrophils % Seg Neuts % (Manual) Lymphocytes % (Manual) Seg Neutrophils # Seg Neutrophils # Man Lymphocytes # (Manual) Monocytes # (Manual) PT INR D-Dimer 1415.56 H ABG pH POC ABG pCO2 POC ABG pO2 ABG pO2 ABG HCO3 ABG O2 Saturation ABG Hemoglobin ABG Potassium ABG Chloride ABG Glucose Sodium Potassium Chloride Carbon Dioxide BUN Creatinine Glucose 106 H POC Glucose Ferritin 522.1 H Lactate Dehydrogenase 240 H C-Reactive Protein 17.20 H Total Protein Albumin Arterial Blood Glucose Ur Specific [place] Urine WBC (Auto) 03/03/20 03/04/20 03/04/20 22:15 02:59 02:59 WBC 15.2 H RBC 3.56 L Hgb 10.9 L Hct 33.4 L RDW 17.5 H Lymph % (Auto) Seg Neutrophils % Seg Neuts % (Manual) 93.0 H Lymphocytes % (Manual) 5.0 L Seg Neutrophils # Seg Neutrophils # Man 14.1 H Lymphocytes # (Manual) 0.8 L Monocytes # (Manual) PT 15.9 H INR 1.29 H D-Dimer ABG pH POC ABG pCO2 POC ABG pO2 ABG pO2 ABG HCO3 ABG O2 Saturation ABG Hemoglobin ABG Potassium ABG Chloride ABG Glucose Sodium Potassium Chloride Carbon Dioxide BUN Creatinine Glucose POC Glucose Ferritin Lactate Dehydrogenase C-Reactive Protein Total Protein Albumin Arterial Blood Glucose Ur Specific [place] 1.031 H Urine WBC (Auto) 8.0 H 03/04/20 03/04/20 03/05/20 02:59 16:16 04:00 WBC RBC Hgb Hct RDW Lymph % (Auto) Seg Neutrophils % Seg Neuts % (Manual) Lymphocytes % (Manual) Seg Neutrophils # Seg Neutrophils # Man Lymphocytes # (Manual) Monocytes # (Manual) PT INR D-Dimer ABG pH 7.451 H 7.498 H POC ABG pCO2 POC ABG pO2 ABG pO2 102.9 H 122.7 H ABG HCO3 ABG O2 Saturation ABG Hemoglobin 12.7 L 10.2 L ABG Potassium ABG Chloride ABG Glucose Sodium 152 H Potassium Chloride 116.9 H Carbon Dioxide BUN 27 H Creatinine 0.4 L Glucose 127 H POC Glucose Ferritin Lactate Dehydrogenase C-Reactive Protein Total Protein Albumin Arterial Blood Glucose Ur Specific [place] Urine WBC (Auto) 03/05/20 03/05/20 03/05/20 05:32 05:32 18:05 WBC 17.4 H RBC 3.35 L Hgb 10.3 L Hct 31.4 L RDW 17.2 H Lymph % (Auto) 10.9 L Seg Neutrophils % 85.3 H Seg Neuts % (Manual) Lymphocytes % (Manual) Seg Neutrophils # 14.8 H Seg Neutrophils # Man Lymphocytes # (Manual) Monocytes # (Manual) PT INR D-Dimer ABG pH POC ABG pCO2 POC ABG pO2 ABG pO2 ABG HCO3 ABG O2 Saturation ABG Hemoglobin ABG Potassium ABG Chloride ABG Glucose Sodium 150 H 146 H Potassium 3.4 L Chloride 115.0 H 113.7 H Carbon Dioxide 20 L BUN 29 H Creatinine 0.5 L 0.3 L Glucose POC Glucose Ferritin Lactate Dehydrogenase C-Reactive Protein Total Protein Albumin Arterial Blood Glucose Ur Specific [place] Urine WBC (Auto) 03/06/20 03/06/20 03/06/20 04:16 04:16 05:50 WBC 11.2 H RBC 3.05 L Hgb 9.2 L Hct 28.2 L RDW 16.8 H Lymph % (Auto) Seg Neutrophils % 80.0 H Seg Neuts % (Manual) Lymphocytes % (Manual) Seg Neutrophils # 9.0 H Seg Neutrophils # Man Lymphocytes # (Manual) Monocytes # (Manual) PT INR D-Dimer ABG pH POC ABG pCO2 POC ABG pO2 ABG pO2 194.8 H ABG HCO3 ABG O2 Saturation 99.3 H ABG Hemoglobin 9.2 L ABG Potassium ABG Chloride ABG Glucose Sodium 146 H Potassium 3.1 L Chloride 111.3 H Carbon Dioxide BUN Creatinine 0.4 L Glucose POC Glucose Ferritin Lactate Dehydrogenase C-Reactive Protein Total Protein Albumin Arterial Blood Glucose Ur Specific [place] Urine WBC (Auto) 03/07/20 03/07/20 03/07/20 02:54 05:47 06:03 WBC RBC 3.21 L Hgb 9.8 L Hct 28.6 L RDW 16.6 H Lymph % (Auto) Seg Neutrophils % 80.1 H Seg Neuts % (Manual) Lymphocytes % (Manual) Seg Neutrophils # 7.8 H Seg Neutrophils # Man Lymphocytes # (Manual) Monocytes # (Manual) PT INR D-Dimer ABG pH 7.504 H POC ABG pCO2 30.5 L POC ABG pO2 ABG pO2 ABG HCO3 ABG O2 Saturation ABG Hemoglobin 10.4 L ABG Potassium 2.7 L ABG Chloride 109.0 H ABG Glucose Sodium Potassium Chloride Carbon Dioxide BUN Creatinine Glucose POC Glucose 126 H Ferritin Lactate Dehydrogenase C-Reactive Protein Total Protein Albumin Arterial Blood Glucose Ur Specific [place] Urine WBC (Auto) 03/07/20 03/07/20 03/07/20 06:03 17:22 17:25 WBC RBC Hgb Hct RDW Lymph % (Auto) Seg Neutrophils % Seg Neuts % (Manual) Lymphocytes % (Manual) Seg Neutrophils # Seg Neutrophils # Man Lymphocytes # (Manual) Monocytes # (Manual) PT INR D-Dimer ABG pH POC ABG pCO2 POC ABG pO2 ABG pO2 ABG HCO3 ABG O2 Saturation ABG Hemoglobin ABG Potassium ABG Chloride ABG Glucose Sodium Potassium 2.7 L* Chloride 107.6 H Carbon Dioxide 21 L BUN 8 L Creatinine 0.3 L Glucose 129 H POC Glucose 119 H 125 H Ferritin Lactate Dehydrogenase C-Reactive Protein Total Protein Albumin Arterial Blood Glucose Ur Specific [place] Urine WBC (Auto) 03/07/20 03/08/20 03/08/20 23:30 04:30 16:56 WBC RBC Hgb Hct RDW Lymph % (Auto) Seg Neutrophils % Seg Neuts % (Manual) Lymphocytes % (Manual) Seg Neutrophils # Seg Neutrophils # Man Lymphocytes # (Manual) Monocytes # (Manual) PT INR D-Dimer ABG pH 7.513 H POC ABG pCO2 POC ABG pO2 ABG pO2 170.6 H ABG HCO3 ABG O2 Saturation 99.2 H ABG Hemoglobin 8.8 L ABG Potassium ABG Chloride ABG Glucose Sodium Potassium Chloride Carbon Dioxide BUN Creatinine Glucose POC Glucose 107 H 108 H Ferritin Lactate Dehydrogenase C-Reactive Protein Total Protein Albumin Arterial Blood Glucose Ur Specific [place] Urine WBC (Auto) 03/08/20 03/09/20 03/09/20 21:07 04:17 11:08 WBC RBC Hgb Hct RDW Lymph % (Auto) Seg Neutrophils % Seg Neuts % (Manual) Lymphocytes % (Manual) Seg Neutrophils # Seg Neutrophils # Man Lymphocytes # (Manual) Monocytes # (Manual) PT INR D-Dimer ABG pH 7.498 H POC ABG pCO2 POC ABG pO2 125.5 H ABG pO2 ABG HCO3 ABG O2 Saturation ABG Hemoglobin ABG Potassium ABG Chloride 109.0 H ABG Glucose 103 H Sodium Potassium Chloride 109.4 H Carbon Dioxide BUN 6 L Creatinine 0.3 L Glucose 121 H POC Glucose 123 H Ferritin Lactate Dehydrogenase C-Reactive Protein Total Protein Albumin 2.8 L Arterial Blood Glucose 103 H Ur Specific [place] Urine WBC (Auto) 03/10/20 03/10/20 03/10/20 04:46 08:10 08:10 WBC RBC Hgb 9.5 L Hct 28.6 L RDW Lymph % (Auto) Seg Neutrophils % Seg Neuts % (Manual) Lymphocytes % (Manual) Seg Neutrophils # Seg Neutrophils # Man Lymphocytes # (Manual) Monocytes # (Manual) PT INR D-Dimer ABG pH 7.533 H POC ABG pCO2 POC ABG pO2 128.2 H ABG pO2 ABG HCO3 ABG O2 Saturation ABG Hemoglobin 10.0 L ABG Potassium ABG Chloride ABG Glucose 110 H Sodium Potassium Chloride Carbon Dioxide BUN 5 L Creatinine 0.2 L Glucose POC Glucose Ferritin Lactate Dehydrogenase C-Reactive Protein Total Protein Albumin Arterial Blood Glucose 110 H Ur Specific [place] Urine WBC (Auto) 03/10/20 03/10/20 03/11/20 17:22 23:24 05:07 WBC RBC Hgb Hct RDW Lymph % (Auto) Seg Neutrophils % Seg Neuts % (Manual) Lymphocytes % (Manual) Seg Neutrophils # Seg Neutrophils # Man Lymphocytes # (Manual) Monocytes # (Manual) PT INR D-Dimer ABG pH POC ABG pCO2 POC ABG pO2 ABG pO2 ABG HCO3 ABG O2 Saturation ABG Hemoglobin ABG Potassium ABG Chloride ABG Glucose Sodium Potassium Chloride Carbon Dioxide BUN Creatinine Glucose POC Glucose 108 H 189 H 217 H Ferritin Lactate Dehydrogenase C-Reactive Protein Total Protein Albumin Arterial Blood Glucose Ur Specific [place] Urine WBC (Auto) 03/11/20 03/11/20 03/12/20 11:28 23:25 05:14 WBC RBC Hgb Hct RDW Lymph % (Auto) Seg Neutrophils % Seg Neuts % (Manual) Lymphocytes % (Manual) Seg Neutrophils # Seg Neutrophils # Man Lymphocytes # (Manual) Monocytes # (Manual) PT INR D-Dimer ABG pH POC ABG pCO2 POC ABG pO2 ABG pO2 ABG HCO3 ABG O2 Saturation ABG Hemoglobin ABG Potassium ABG Chloride ABG Glucose Sodium Potassium Chloride Carbon Dioxide BUN Creatinine Glucose POC Glucose 212 H 152 H 193 H Ferritin Lactate Dehydrogenase C-Reactive Protein Total Protein Albumin Arterial Blood Glucose Ur Specific [place] Urine WBC (Auto) 03/12/20 03/12/20 03/12/20 11:58 17:11 23:27 WBC RBC Hgb Hct RDW Lymph % (Auto) Seg Neutrophils % Seg Neuts % (Manual) Lymphocytes % (Manual) Seg Neutrophils # Seg Neutrophils # Man Lymphocytes # (Manual) Monocytes # (Manual) PT INR D-Dimer ABG pH POC ABG pCO2 POC ABG pO2 ABG pO2 ABG HCO3 ABG O2 Saturation ABG Hemoglobin ABG Potassium ABG Chloride ABG Glucose Sodium Potassium Chloride Carbon Dioxide BUN Creatinine Glucose POC Glucose 142 H 141 H 175 H Ferritin Lactate Dehydrogenase C-Reactive Protein Total Protein Albumin Arterial Blood Glucose Ur Specific [place] Urine WBC (Auto) 03/13/20 03/13/20 03/13/20 05:33 12:04 23:20 WBC RBC Hgb Hct RDW Lymph % (Auto) Seg Neutrophils % Seg Neuts % (Manual) Lymphocytes % (Manual) Seg Neutrophils # Seg Neutrophils # Man Lymphocytes # (Manual) Monocytes # (Manual) PT INR D-Dimer ABG pH POC ABG pCO2 POC ABG pO2 ABG pO2 ABG HCO3 ABG O2 Saturation ABG Hemoglobin ABG Potassium ABG Chloride ABG Glucose Sodium Potassium Chloride Carbon Dioxide BUN Creatinine Glucose POC Glucose 184 H 182 H 132 H Ferritin Lactate Dehydrogenase C-Reactive Protein Total Protein Albumin Arterial Blood Glucose Ur Specific [place] Urine WBC (Auto) 03/14/20 03/14/20 03/14/20 05:16 07:08 07:08 WBC 14.7 H RBC 3.30 L Hgb 9.8 L Hct 30.3 L RDW 17.3 H Lymph % (Auto) Seg Neutrophils % Seg Neuts % (Manual) 87.0 H Lymphocytes % (Manual) 7.0 L Seg Neutrophils # Seg Neutrophils # Man 12.8 H Lymphocytes # (Manual) 1.0 L Monocytes # (Manual) 0.9 H PT INR D-Dimer ABG pH POC ABG pCO2 POC ABG pO2 ABG pO2 ABG HCO3 ABG O2 Saturation ABG Hemoglobin ABG Potassium ABG Chloride ABG Glucose Sodium Potassium Chloride Carbon Dioxide BUN Creatinine 0.3 L Glucose 111 H POC Glucose 116 H Ferritin Lactate Dehydrogenase C-Reactive Protein Total Protein Albumin 2.5 L Arterial Blood Glucose Ur Specific [place] Urine WBC (Auto) 03/14/20 03/15/20 03/15/20 16:58 04:56 04:56 WBC RBC 3.31 L Hgb 10.2 L Hct 30.2 L RDW 17.5 H Lymph % (Auto) Seg Neutrophils % Seg Neuts % (Manual) 94.0 H Lymphocytes % (Manual) 4.0 L Seg Neutrophils # Seg Neutrophils # Man 9.7 H Lymphocytes # (Manual) 0.4 L Monocytes # (Manual) PT INR D-Dimer ABG pH POC ABG pCO2 POC ABG pO2 ABG pO2 ABG HCO3 ABG O2 Saturation ABG Hemoglobin ABG Potassium ABG Chloride ABG Glucose Sodium Potassium Chloride Carbon Dioxide BUN Creatinine 0.3 L Glucose 189 H POC Glucose 134 H Ferritin Lactate Dehydrogenase C-Reactive Protein Total Protein Albumin Arterial Blood Glucose Ur Specific [place] Urine WBC (Auto) 03/15/20 03/15/20 03/16/20 05:26 17:46 05:23 WBC RBC Hgb Hct RDW Lymph % (Auto) Seg Neutrophils % Seg Neuts % (Manual) Lymphocytes % (Manual) Seg Neutrophils # Seg Neutrophils # Man Lymphocytes # (Manual) Monocytes # (Manual) PT INR D-Dimer ABG pH POC ABG pCO2 POC ABG pO2 ABG pO2 ABG HCO3 ABG O2 Saturation ABG Hemoglobin ABG Potassium ABG Chloride ABG Glucose Sodium Potassium Chloride Carbon Dioxide BUN Creatinine Glucose POC Glucose 159 H 110 H 149 H Ferritin Lactate Dehydrogenase C-Reactive Protein Total Protein Albumin Arterial Blood Glucose Ur Specific [place] Urine WBC (Auto) 03/16/20 12:05 WBC RBC Hgb Hct RDW Lymph % (Auto) Seg Neutrophils % Seg Neuts % (Manual) Lymphocytes % (Manual) Seg Neutrophils # Seg Neutrophils # Man Lymphocytes # (Manual) Monocytes # (Manual) PT INR D-Dimer ABG pH POC ABG pCO2 POC ABG pO2 ABG pO2 ABG HCO3 ABG O2 Saturation ABG Hemoglobin ABG Potassium ABG Chloride ABG Glucose Sodium Potassium Chloride Carbon Dioxide BUN Creatinine Glucose POC Glucose 116 H Ferritin Lactate Dehydrogenase C-Reactive Protein Total Protein Albumin Arterial Blood Glucose Ur Specific [place] Urine WBC (Auto) Chest x-ray: pending Allied health notes reviewed: nursing
[2020-03-16 21:04] LABS: ABG HCO3 26.6 mmol/L (20.0-26.0); ABG Methemoglobin 0.5 % (0.0-1.5); ABG Oxygen Saturation 98.5 % (95.0-99.0); ABG PCO2 36.8 mm Hg; ABG PH 7.478 pH Units (7.350-7.450); ABG PO2 122.9 mm Hg (80.0-90.0)
[2020-03-16] MEDS: ENOXAPARIN 40 MG/0.4 ML INJ SUB-Q SCH (21:22)
[2020-03-17] MEDS: ARFORMOTEROL 15 MCG/2 ML NEBU IH SCH ×2 (08:50→20:50)
[2020-03-17] MEDS: IPRATROPIUM/ALBUTEROL SULFATE 3 ML AMPUL.NEB IH SCH ×3 (08:50→20:51)
[2020-03-17] MEDS: BUDESONIDE 0.5 MG/2 ML NEBU IH SCH ×2 (08:50→20:51)
[2020-03-17] MEDS: fentaNYL 25 MCG/HR PATCH 72HR TD SCH (09:36)
[2020-03-17] MEDS: CHOLESTYRAMINE (WITH SUGAR) 4 GM PACKET PO SCH ×2 (09:37→21:59)
[2020-03-17] MEDS: FAMOTIDINE 20 MG TAB FEEDTUBE SCH ×2 (09:37→21:59)
[2020-03-17] MEDS: methylPREDNISolone Sod Succinate 125 MG/2 ML INJ IV SCH ×2 (09:37→21:59)
[2020-03-17] MEDS: QUEtiapine 100 MG TAB PO SCH ×2 (09:37→22:00)
--- NOTE | 2020-03-17 11:28 | Progress Note ---
Assessment and Plan Assessment and plan: --PUI; COVID-19 test negative on 03/04/2020 --acute on chronic hypoxic respiratory failure; Patient has chronic tracheostomy now on ventilatory support Continue nebulizers ,wean off ventilator as tolerated . Pulmonary critical following. --MRSA pneumonia; respiratory and contact isolation Completed vancomycin, continue Bactrim DS per ID --Bilateral pneumonia; Continue current antibiotics, follow cultures Ventilatory support, pulmonary and ID following --Severe hypokalemia; resolved Closely monitor lecture lites --Hypernatremia; resolved Gentle hydration supportive care --Sepsis secondary to bilateral pneumonia/UTI Continue current antibiotics, follow cultures, ID following --Severe malnutrition; hypoalbuminemia Supportive care, nutrition consult --DVT prophylaxis;Lovenox --Restrain the patient for agitation --Full CODE STATUS; We will closely monitor the patient and adjust the management as needed 03/05/2020 -Patient is admitted for acute on chronic respiratory failure and currently on and requiring mechanical ventilation. Continue with IV antibiotics for UTI and sepsis. COVID-19 test is done and is negative. Radiological Engineer consulted. Continue with the current management. 03/06/2020 -Patient is admitted for acute on chronic respiratory failure. Patient is on trach and vent. Patient is on IV cefepime and vancomycin per ID recommendation. Pulmonary consulted for vent and trach management. 03/07/2020; continue ventilatory support Wean off vent as tolerated, consults and recommendations noted and appreciated 03/08/2020; We will closely monitor the patient and adjust the management as needed Plan of care reviewed with the patient and his nurse MRSA pneumonia, vancomycin, contact isolation 03/09/2020; patient remains on ventilatory support, on IV antibiotics Wean off vent as tolerated, tanning consultant recommendations noted and appreciated Plan of care reviewed with the patient's nurse and case management 03/10/2020; chest x-ray mild improvement, remains on ventilatory support, wean off ventilator as tolerated Contact isolation for MRSA pneumonia, continue vancomycin 03/11/2020; patient remains on ventilatory support, MRSA pneumonia on vancomycin for total 8 days and de-escalate to Bactrim DS Per ID recommendations. Contact isolation, restraint for agitation as needed 03/12/2020; we will wean off ventilator as tolerated , patient is more alert and awake today Tracheostomy on vent, on contact isolation MRSA on vancomycin, will follow consultants recommendations 03/13/2020; patient completed 8 days of vancomycin, currently on Bactrim DS, remains on ventilatory support, will wean off ventilator as tolerated We will restrain restraint patient as needed 03/14/2020; unable to wean, being off ventilator as tolerated, contact isolation for MRSA pneumonia 03/15/20. patient remains on ventilatory support, MRSA pneumonia on vancomycin for total 8 days (completed) and de-escalate to Bactrim DS Per ID recommendations. Contact isolation, restraint for agitation as needed 03/16/2020. Patient with PSV trialtidal volume 500 / with an FiO2 of 28%. T-piece trials as tolerated. Monitor off antibiotics per ID recommendations. Continue IV steroids and wean per pulmonary recommendations. 03/17/2020. Patient currently tolerating T-piece trial. Continue O2 to maintain sats greater than 92%. Continue to monitor off antibiotics. Continue IV steroids per pulmonary recommendations. History Interval history: No new issues Hospitalist Physical - Constitutional Vitals: Temp Pulse Resp BP Pulse Ox 97.9 F 89 27 H 104/62 100 03/17/20 08:00 03/17/20 10:00 03/17/20 10:00 03/17/20 10:00 03/17/20 10:00 General appearance: Present: mild distress, cachectic, disheveled, other (Tracheostomy, on ventilatory support) - EENT Eyes: Present: PERRL, EOM intact ENT: hearing intact, clear oral mucosa, dentition normal - Neck Neck: Present: supple, normal ROM - Respiratory Respiratory effort: normal Respiratory: bilateral: CTA - Cardiovascular Rhythm: regular Heart Sounds: Present: S1 & S2. Absent: gallop, rub - Extremities Extremities: no ischemia, No edema, Full ROM - Abdominal General gastrointestinal: soft, non-tender, non-distended, normal bowel sounds - Integumentary Integumentary: Present: clear, warm, dry - Neurologic Neurologic: CNII-XII intact, moves all extremities Results - Labs CBC & Chem 7: 03/15/20 04:56 03/15/20 04:56 Labs: Laboratory Last Values WBC 10.3 K/mm3 (4.5-11.0) 03/15/20 04:56 RBC 3.31 M/mm3 (3.65-5.03) L 03/15/20 04:56 Hgb 10.2 gm/dl (11.8-15.2) L 03/15/20 04:56 Hct 30.2 % (35.5-45.6) L 03/15/20 04:56 MCV 91 fl (84-94) 03/15/20 04:56 MCH 31 pg (28-32) 03/15/20 04:56 MCHC 34 % (32-34) 03/15/20 04:56 RDW 17.5 % (13.2-15.2) H 03/15/20 04:56 Plt Count 377 K/mm3 (140-440) 03/15/20 04:56 Lymph % (Auto) 13.7 % (13.4-35.0) 03/07/20 06:03 [place] % (Auto) Game Engineer 03/14/20 07:08 Eos % (Auto) 0.5 % (0.0-4.3) 03/07/20 06:03 Baso % (Auto) 0.3 % (0.0-1.8) 03/07/20 06:03 Lymph # (Auto) 1.3 K/mm3 (1.2-5.4) 03/07/20 06:03 [place] # (Auto) 0.5 K/mm3 (0.0-0.8) 03/07/20 06:03 Eos # (Auto) 0.0 K/mm3 (0.0-0.4) 03/07/20 06:03 Baso # (Auto) 0.0 K/mm3 (0.0-0.1) 03/07/20 06:03 Add Manual Diff Complete 03/15/20 04:56 Total Counted 100 03/15/20 04:56 Seg Neutrophils % Game Engineer 03/15/20 04:56 Seg Neuts % (Manual) 94.0 % (40.0-70.0) H 03/15/20 04:56 Band Neutrophils % 0 % 03/15/20 04:56 Lymphocytes % (Manual) 4.0 % (13.4-35.0) L 03/15/20 04:56 Reactive Lymphs % (Man) 0 % 03/15/20 04:56 Monocytes % (Manual) 2.0 % (0.0-7.3) 03/15/20 04:56 Eosinophils % (Manual) 0 % (0.0-4.3) 03/15/20 04:56 Basophils % (Manual) 0 % (0.0-1.8) 03/15/20 04:56 Metamyelocytes % 0 % 03/15/20 04:56 Myelocytes % 0 % 03/15/20 04:56 Promyelocytes % 0 % 03/15/20 04:56 Blast Cells % 0 % 03/15/20 04:56 Nucleated RBC % Not Reportable 03/15/20 04:56 Seg Neutrophils # 7.8 K/mm3 (1.8-7.7) H 03/07/20 06:03 Seg Neutrophils # Man 9.7 K/mm3 (1.8-7.7) H 03/15/20 04:56 Band Neutrophils # 0.0 K/mm3 03/15/20 04:56 Lymphocytes # (Manual) 0.4 K/mm3 (1.2-5.4) L 03/15/20 04:56 Abs React Lymphs (Man) 0.0 K/mm3 03/15/20 04:56 Monocytes # (Manual) 0.2 K/mm3 (0.0-0.8) 03/15/20 04:56 Eosinophils # (Manual) 0.0 K/mm3 (0.0-0.4) 03/15/20 04:56 Basophils # (Manual) 0.0 K/mm3 (0.0-0.1) 03/15/20 04:56 Metamyelocytes # 0.0 K/mm3 03/15/20 04:56 Myelocytes # 0.0 K/mm3 03/15/20 04:56 Promyelocytes # 0.0 K/mm3 03/15/20 04:56 Blast Cells # 0.0 K/mm3 03/15/20 04:56 WBC Morphology Not Reportable 03/15/20 04:56 Hypersegmented Neuts Not Reportable 03/15/20 04:56 Hyposegmented Neuts Not Reportable 03/15/20 04:56 Hypogranular Neuts Not Reportable 03/15/20 04:56 Smudge Cells Not Reportable 03/15/20 04:56 Toxic Granulation Not Reportable 03/15/20 04:56 Toxic Vacuolation Not Reportable 03/15/20 04:56 Dohle Bodies Not Reportable 03/15/20 04:56 Pelger-Huet Anomaly Not Reportable 03/15/20 04:56 Mike Rods Not Reportable 03/15/20 04:56 Platelet Estimate Consistent w auto 03/15/20 04:56 Clumped Platelets Not Reportable 03/15/20 04:56 Plt Clumps, EDTA Not Reportable 03/15/20 04:56 Large Platelets Not Reportable 03/15/20 04:56 Giant Platelets Not Reportable 03/15/20 04:56 Platelet Satelliting Not Reportable 03/15/20 04:56 Plt Morphology Comment Not Reportable 03/15/20 04:56 RBC Morphology Not Reportable 03/15/20 04:56 Dimorphic RBCs Not Reportable 03/15/20 04:56 Polychromasia Not Reportable 03/15/20 04:56 Hypochromasia Not Reportable 03/15/20 04:56 Poikilocytosis Not Reportable 03/15/20 04:56 Anisocytosis Not Reportable 03/15/20 04:56 Microcytosis Not Reportable 03/15/20 04:56 Macrocytosis Not Reportable 03/15/20 04:56 Spherocytes Not Reportable 03/15/20 04:56 Pappenheimer Bodies Not Reportable 03/15/20 04:56 Sickle Cells Not Reportable 03/15/20 04:56 Target Cells Rare 03/15/20 04:56 Tear Drop Cells Not Reportable 03/15/20 04:56 Ovalocytes Not Reportable 03/15/20 04:56 Helmet Cells Not Reportable 03/15/20 04:56 [place] Bodies Not Reportable 03/15/20 04:56 [place] Rings Not Reportable 03/15/20 04:56 [place] Cells Not Reportable 03/15/20 04:56 Bite Cells Not Reportable 03/15/20 04:56 Crenated Cell Not Reportable 03/15/20 04:56 Elliptocytes Not Reportable 03/15/20 04:56 Acanthocytes (Spur) Not Reportable 03/15/20 04:56 Rouleaux Not Reportable 03/15/20 04:56 Hemoglobin C Crystals Not Reportable 03/15/20 04:56 Schistocytes Not Reportable 03/15/20 04:56 Malaria parasites Not Reportable 03/15/20 04:56 Branden Bodies Not Reportable 03/15/20 04:56 Hem Pathologist Commnt No 03/15/20 04:56 PT 15.9 Sec. (12.2-14.9) H 03/04/20 02:59 INR 1.29 (0.87-1.13) H 03/04/20 02:59 D-Dimer 1415.56 ng/mlDDU (0-234) H 03/03/20 22:00 ABG pH 7.478 pH Units (7.350-7.450) H 03/16/20 20:45 POC ABG pCO2 34.1 mmHg (32.0-48.0) 03/10/20 04:46 ABG pCO2 36.8 mm Hg 03/16/20 20:45 POC ABG pO2 128.2 mmHg (83-108) H 03/10/20 04:46 ABG pO2 122.9 mm Hg (80.0-90.0) H 03/16/20 20:45 POC ABG HCO3 28 03/10/20 04:46 ABG HCO3 26.6 mmol/L (20.0-26.0) H 03/16/20 20:45 ABG O2 Saturation 98.5 % (95.0-99.0) 03/16/20 20:45 ABG O2 Content 14.0 (0.0-44) 03/16/20 20:45 POC ABG Base Excess 5.3 03/10/20 04:46 ABG Base Excess 3.0 mmol/L (-2.0-3.0) 03/16/20 20:45 ABG Hemoglobin 10.1 gm/dl (14.0-18.0) L 03/16/20 20:45 ABG Carboxyhemoglobin 1.0 % (0.0-5.0) 03/16/20 20:45 ABG Methemoglobin 0.5 % (0.0-1.5) 03/16/20 20:45 ABG Sodium 137.7 mmol/L (136.0-145.0) 03/10/20 04:46 ABG Potassium 3.6 mmol/L (3.40-4.50) 03/10/20 04:46 ABG Chloride 107.0 mmol/L (98-107) 03/10/20 04:46 ABG Glucose 110 mg/dL (65-95) H 03/10/20 04:46 Oxyhemoglobin 97.0 % (95.0-99.0) 03/16/20 20:45 FiO2 28 % 03/16/20 20:45 Sodium 138 mmol/L (137-145) 03/15/20 04:56 Potassium 4.4 mmol/L (3.6-5.0) 03/15/20 04:56 Chloride 102.5 mmol/L (98-107) 03/15/20 04:56 Carbon Dioxide 25 mmol/L (22-30) 03/15/20 04:56 Anion Gap 15 mmol/L 03/15/20 04:56 BUN 13 mg/dL (9-20) 03/15/20 04:56 Creatinine 0.3 mg/dL (0.8-1.3) L 03/15/20 04:56 Estimated GFR > 60 ml/min 03/15/20 04:56 BUN/Creatinine Ratio 43 % 03/15/20 04:56 Glucose 189 mg/dL (75-100) H 03/15/20 04:56 POC Glucose 160 mg/dL (70-105) H 03/17/20 05:42 Lactic Acid 0.80 mmol/L (0.7-2.0) 03/04/20 02:59 Calcium 9.1 mg/dL (8.4-10.2) 03/15/20 04:56 Magnesium 2.00 mg/dL (1.7-2.3) 03/14/20 07:08 Ferritin 522.1 ng/mL (30.0-300.0) H 03/03/20 22:00 Total Bilirubin 0.20 mg/dL (0.1-1.2) 03/14/20 07:08 AST 20 units/L (5-40) 03/14/20 07:08 ALT 34 units/L (7-56) 03/14/20 07:08 Alkaline Phosphatase 82 units/L (35-129) 03/14/20 07:08 Lactate Dehydrogenase 240 units/L (91-180) H 03/03/20 22:00 C-Reactive Protein 17.20 mg/dL (0.00-1.30) H 03/03/20 22:00 Total Protein 7.0 g/dL (6.3-8.2) 03/14/20 07:08 Albumin 2.5 g/dL (3.9-5) L 03/14/20 07:08 Albumin/Globulin Ratio 0.6 % 03/14/20 07:08 Procalcitonin 0.31 ng/mL (<0.15) 03/03/20 22:00 Arterial Blood Glucose 110 mg/dL (65-95) H 03/10/20 04:46 Arterial Blood Ionized Calcium 4.6 mg/dL (4.6-5.3) 03/10/20 04:46 Urine Color Bing (Yellow) 03/03/20 22:15 Urine Turbidity Clear (Clear) 03/03/20 22:15 Urine pH 5.0 (5.0-7.0) 03/03/20 22:15 Ur Specific [place] 1.031 (1.003-1.030) H 03/03/20 22:15 Urine Protein 30 mg/dl mg/dL (Negative) 03/03/20 22:15 Urine Glucose (UA) Neg mg/dL (Negative) 03/03/20 22:15 Urine Ketones Neg mg/dL (Negative) 03/03/20 22:15 Urine Blood Neg (Negative) 03/03/20 22:15 Urine Nitrite Neg (Negative) 03/03/20 22:15 Urine Bilirubin Neg (Negative) 03/03/20 22:15 Urine Urobilinogen 4.0 mg/dL (<2.0) 03/03/20 22:15 Ur Leukocyte Esterase Tr (Negative) 03/03/20 22:15 Urine WBC (Auto) 8.0 /HPF (0.0-6.0) H 03/03/20 22:15 Urine RBC (Auto) 2.0 /HPF (0.0-6.0) 03/03/20 22:15 U Epithel Cells (Auto) 1.0 /HPF (0-13.0) 03/03/20 22:15 Urine Bacteria (Auto) 1+ /HPF (Negative) 03/03/20 22:15 Hyaline Casts 1 /LPF 03/03/20 22:15 Urine Mucus 1+ /HPF 03/03/20 22:15 Vancomycin Trough 9.0 ug/mL (5.0-20.0) 03/06/20 20:15 Coronavirus (PCR) Negative (Negative) 03/04/20 09:16 Sarah/IV: Voiding Method Condom Catheter IV Catheter Type [Right Upper INT / Saline Lock arm] IV Catheter Type [Left Upper Mid-line arm] IV Catheter Type [Right Peripheral IV Forearm] Active Medications - Current Medications Current Medications: Generic Name Dose Route Start Last Admin Trade Name Freq PRN Reason Stop Dose Admin Albuterol/Ipratropium 1 ampul 03/12/20 08:00 03/17/20 08:50 Duoneb *Not For Prn Use* IH 1 ampul TIDRT KESHAWN Administration Lipase/Protease/Amylase 1 each 03/06/20 14:54 Pancreaze 10,500 Unit FEEDTUBE PRN PRN For Clogged Feeding Tube Arformoterol Tartrate 15 mcg 03/10/20 20:00 03/17/20 08:50 Brovana Nebu IH 15 mcg Q12HRT KESHAWN Administration Budesonide 0.5 mg 03/10/20 20:00 03/17/20 08:50 Pulmicort IH 0.5 mg Q12HRT KESHAWN Administration Cholestyramine Resin 4 gm 03/14/20 13:00 03/17/20 09:37 Questran PO 03/18/20 22:01 4 gm Q12HR KESHAWN Administration Enoxaparin Sodium 40 mg 03/04/20 22:00 03/16/20 21:22 Enoxaparin SUB-Q 40 mg QDAY@2200 KESHAWN Administration Protocol Famotidine 20 mg 03/09/20 11:00 03/17/20 09:37 Pepcid FEEDTUBE 20 mg BID KESHAWN Administration Fentanyl 50 mcg 03/15/20 16:00 Sublimaze IV Q10MIN PRN ANALGESIA Fentanyl 25 mcg 03/17/20 10:00 03/17/20 09:36 Duragesic TD 25 mcg Q3D KESHAWN Administration Hydrophilic Ointment 1 applic 03/03/20 22:31 03/06/20 08:19 Vaseline Lip Therapy TP 1 applic Q2HR PRN Administration Dry Lips Magnesium Hydroxide 30 ml 03/03/20 23:45 Milk Of Magnesia PO Q4H PRN Constipation Methylprednisolone Sodium Succinate 60 mg 03/14/20 22:00 03/17/20 09:37 Solu-Medrol IV 60 mg Q12HR KESHAWN Administration Morphine Sulfate 2 mg 03/03/20 23:45 03/14/20 09:09 Morphine IV 2 mg Q4H PRN Administration Pain, Moderate (4-6) Multi-Ingred Cream/Lotion/Oil/Oint 1 applic 03/03/20 22:31 Artificial Tears Ophth Oint OU Q4HR PRN Dry Eye(s) Ondansetron HCl 4 mg 03/03/20 23:45 03/05/20 16:12 Zofran IV 4 mg Q8H PRN Administration Nausea And Vomiting Quetiapine Fumarate 100 mg 03/12/20 22:00 03/17/20 09:37 Seroquel PO 100 mg BID KESHAWN Administration Simethicone 80 mg 03/11/20 09:39 03/14/20 21:46 Mylicon PO 80 mg Q6H PRN Administration Gas pain Simple Syrup 15 ml 03/06/20 14:54 Simple Syrup FEEDTUBE PRN PRN Hypoglycemia Simple Syrup 30 ml 03/06/20 14:54 Simple Syrup FEEDTUBE PRN PRN Hypoglycemia Sodium Bicarbonate 325 mg 03/06/20 14:54 Sodium Bicarbonate FEEDTUBE PRN PRN For Clogged Feeding Tube Sodium Chloride 10 ml 03/04/20 10:00 03/17/20 09:37 Sodium Chloride Flush Syringe 10 Ml IV 10 ml BID KESHAWN Administration Sodium Chloride 10 ml 03/03/20 23:45 Sodium Chloride Flush Syringe 10 Ml IV PRN PRN LINE FLUSH Nutrition/Malnutrition Assess - Dietary Evaluation Nutrition/Malnutrition Findings: Nutrition Notes Start: 03/04/20 09:15 Freq: Status: Active Protocol: Document 03/16/20 11:48 AB (Rec: 03/16/20 12:03 AB [id number]) Co-Sign 03/16/20 11:48 LM Nutrition Notes Initial or Follow up Reassessment Current Diagnosis Sepsis,Hypertension, Respiratory Failure Other Pertinent Diagnosis Bilat pneu, sacral wound, TBI Current Diet Vital AF 1.2 at 70 ml/hr Labs/Tests Reviewed Pertinent Medications Fentanyl Pulmicort Enoxaparin Height 6 ft 3 in Weight 63.4 kg [place] Body Weight (kg) 89.09 BMI 17.4 Weight Status Underweight Subjective/Other Information F/U for TF start/tolerance. Nurse noted that pt has had loose BMs. Pt is currently tolerating TF at goal rate, per nurse. Percent of energy/protein needs met: 91%/100% Burn Absent Trauma Absent GI Symptoms Diarrhea Current % PO Negligible Minimum of two criteria No Reduced Director And Professor Strength Measurably Reduced (severe) #2 Nutrition Diagnosis Increased nutrient needs ( specify in comment below) Comments: Protein Diagnosis Progress(for reassessment Continues documentation) #1 Nutrition Diagnosis Inadequate oral intake Diagnosis Progress(for reassessment Continues documentation) Is patient on ventilator? Yes Is Patient Ambulatory and/or Out of Bed No REE-([place]-St. Jeor-confined to bed) 1816.932 Kcal/Kg value to use for calculation 35 Approximate Energy Requirements Using 2219 kcal/Kg Calculation Used for Recommendations Kcal/kg Additional Notes Pro needs 1.25-2g/k-127g/ day Fluid needs 1ml/kcal Nutrition Intervention Change Diet Order: Continue current TF order Nutrition Support: Vital AF 1.2 at 70 ml/hr Flush with 125 ml q4h Kcal 2,016 Protein (gm) 126 Fluid (mL) 1,363 Goal #1 TF tolerance Goal #2 TF (at goal rate) to meet 100% energy and pro needs Goal #3 Wt maintenance and/or gain Goal #4 Wound healing Anticipated Discharge Needs: Continue TF Follow-Up By: 03/18/20 Additional Comments F/U for TF tolerance, diarrhea
--- NOTE | 2020-03-17 17:19 | Progress Note ---
Assessment and Plan Sepsis, leucocytosis likely secondary to bilateral pneumonia. Acute and chronic hypoxemic respiratory failure, s/p MVS Chronic tracheostomy Bilateral pneumonia [id number] infection- negative Oropharyngeal dysphagia s/p PEG Chronic indwelling Martinez catheter h/o TBI with chronic encephalopathy Hypernatremia, improving - VAP bundle addressed, aspiration precautions HOB >40 -Trach care, airway clearance, secretion management -ABG, CXR as clinically indicated -CBC, BMPas clinically indicated. Leave on ATP for at least 18 hours today, if he tolerates it keep him off MVS until the morning -Supplemental oxygen, wean for O2 sats>90% -Bronchodilators with pulmonary hygiene per RT - wean per pulmonary driven protocols otherwise - intermittent Fentanyl for target RASS 0 to -1 -Antibiotics per ID -Enteric nutritonal support at goal rate -Accuchecks with glycemic control per SSI (While critically ill target blood glucose of 140-180 mg/dL; avoid hypoglycemia) -Chronic martinez, catheter care - continue to avoid benzodiazepines, reduce the possibility of delirium - Maintenance of sleep-wake cycle, avoid delirium - Stress ulcer and VTE prophylaxis ( Enoxaparin, add Famotidine) - PT/OT/ROM exercises - Mobility protocol, off loading, frequent turning per facility protocol to prevent pressure ulcers - Monitor hemodynamics closely - continue other care per attending / other consultants CONDITION: FAIR PROGNOSIS: FAIR CODE STATUS: FULL CODE Subjective Date of service: 03/17/20 Principal diagnosis: Severe Sepsis; PNA; Ac on ch hypoxemic resp failure; [id number] Interval history: Follow up for: Sepsis, leucocytosis likely secondary to bilateral pneumonia.;Acute and chronic hypoxemic respiratory failure, on MVS;Chronic tracheostomy;Bilateral pneumonia; [id number] infection ( negative) ; Oropharyngeal dysphagia s/p PEG Seen and examined. Vitals,,labs, medications, chart reviewed. More awake and alert. s/p trach to ATP this morning, tolerating it well . No overnight fevers, no vomiting, no diarrhea. Discussed with RT and RN Objective Vital Signs - 12hr 03/17/20 03/17/20 03/17/20 06:00 07:00 08:00 Temperature 97.9 F Pulse Rate 97 H 74 91 H Pulse Rate [ Anterior Bilateral Throughout] Pulse Rate [ 91 H From Monitor] Respiratory 22 20 22 Rate Respiratory Rate [Anterior Bilateral Throughout] Blood Pressure 117/77 127/70 114/82 O2 Sat by Pulse 99 100 100 Oximetry O2 Sat by Pulse Oximetry [ Assessment] 03/17/20 03/17/20 03/17/20 08:47 09:00 09:14 Temperature Pulse Rate 90 91 H Pulse Rate [ 77 Anterior Bilateral Throughout] Pulse Rate [ From Monitor] Respiratory 23 28 H Rate Respiratory 24 Rate [Anterior Bilateral Throughout] Blood Pressure 114/81 124/79 O2 Sat by Pulse 100 100 Oximetry O2 Sat by Pulse Oximetry [ Assessment] 03/17/20 03/17/20 03/17/20 09:16 09:18 09:19 Temperature Pulse Rate 70 Pulse Rate [ Anterior Bilateral Throughout] Pulse Rate [ From Monitor] Respiratory Rate Respiratory Rate [Anterior Bilateral Throughout] Blood Pressure 124/79 O2 Sat by Pulse 100 100 Oximetry O2 Sat by Pulse 100 Oximetry [ Assessment] 03/17/20 03/17/20 03/17/20 10:00 11:00 12:00 Temperature 97.8 F Pulse Rate 89 65 57 L Pulse Rate [ Anterior Bilateral Throughout] Pulse Rate [ 57 L From Monitor] Respiratory 27 H 19 20 Rate Respiratory Rate [Anterior Bilateral Throughout] Blood Pressure 104/62 124/60 129/56 O2 Sat by Pulse 100 100 100 Oximetry O2 Sat by Pulse Oximetry [ Assessment] 03/17/20 03/17/20 03/17/20 12:12 13:00 14:00 Temperature Pulse Rate 59 L 63 65 Pulse Rate [ Anterior Bilateral Throughout] Pulse Rate [ From Monitor] Respiratory 23 22 Rate Respiratory Rate [Anterior Bilateral Throughout] Blood Pressure 129/59 128/51 125/64 O2 Sat by Pulse 100 100 100 Oximetry O2 Sat by Pulse Oximetry [ Assessment] 03/17/20 03/17/20 03/17/20 14:45 15:00 16:00 Temperature 98.6 F Pulse Rate 74 62 Pulse Rate [ 67 Anterior Bilateral Throughout] Pulse Rate [ From Monitor] Respiratory 29 H 28 H Rate Respiratory 24 Rate [Anterior Bilateral Throughout] Blood Pressure 125/64 119/57 O2 Sat by Pulse 98 99 Oximetry O2 Sat by Pulse Oximetry [ Assessment] 03/17/20 03/17/20 17:00 17:09 Temperature Pulse Rate 57 L 64 Pulse Rate [ Anterior Bilateral Throughout] Pulse Rate [ From Monitor] Respiratory 24 Rate Respiratory Rate [Anterior Bilateral Throughout] Blood Pressure 125/57 125/57 O2 Sat by Pulse 100 99 Oximetry O2 Sat by Pulse Oximetry [ Assessment] Constitutional: alert, other (trach to ATP, helmet ) Eyes: non-icteric ENT: oropharynx moist Neck: supple, no lymphadenopathy, no JVD Effort: mildly labored Ascultation: Bilateral: diminished breath sounds, rhonchi Percussion: Bilateral: not dull Cardiovascular: regular rate and rhythm, other (S1,S2) Gastrointestinal: normoactive bowel sounds, soft, non-tender, non-distended, other (PEG in place) Integumentary: normal Extremities: no cyanosis, no edema, pulses normal Neurologic: non-focal exam (grossly, moves around in bed), pupils equal and round Psychiatric: mood appropriate CBC and BMP: 03/21/20 04:34 03/21/20 04:34 ABG, PT/INR, D-dimer: ABG ABG pH 7.478 pH Units (7.350-7.450) H 03/16/20 20:45 POC ABG pCO2 34.1 mmHg (32.0-48.0) 03/10/20 04:46 ABG pCO2 36.8 mm Hg 03/16/20 20:45 POC ABG pO2 128.2 mmHg (83-108) H 03/10/20 04:46 ABG pO2 122.9 mm Hg (80.0-90.0) H 03/16/20 20:45 POC ABG HCO3 28 03/10/20 04:46 ABG O2 Saturation 98.5 % (95.0-99.0) 03/16/20 20:45 PT/INR, D-dimer PT 15.9 Sec. (12.2-14.9) H 03/04/20 02:59 INR 1.29 (0.87-1.13) H 03/04/20 02:59 D-Dimer 1415.56 ng/mlDDU (0-234) H 03/03/20 22:00 Abnormal lab findings: Abnormal Labs 03/03/20 03/03/20 03/03/20 01:10 21:51 21:51 WBC 15.5 H RBC Hgb Hct 35.3 L RDW 17.9 H Lymph % (Auto) 11.6 L Seg Neutrophils % 83.7 H Seg Neuts % (Manual) Lymphocytes % (Manual) Seg Neutrophils # 13.0 H Seg Neutrophils # Man Lymphocytes # (Manual) Monocytes # (Manual) PT INR D-Dimer ABG pH POC ABG pCO2 POC ABG pO2 ABG pO2 173.4 H ABG HCO3 26.7 H ABG O2 Saturation 99.1 H ABG Hemoglobin 11.6 L ABG Potassium ABG Chloride ABG Glucose Sodium 151 H Potassium Chloride 114.4 H Carbon Dioxide BUN 29 H Creatinine 0.6 L Glucose 116 H POC Glucose Ferritin Lactate Dehydrogenase C-Reactive Protein Total Protein 8.9 H Albumin 2.8 L Arterial Blood Glucose Ur Specific [place] Urine WBC (Auto) 03/03/20 03/03/20 03/03/20 22:00 22:00 22:00 WBC RBC Hgb Hct RDW Lymph % (Auto) Seg Neutrophils % Seg Neuts % (Manual) Lymphocytes % (Manual) Seg Neutrophils # Seg Neutrophils # Man Lymphocytes # (Manual) Monocytes # (Manual) PT INR D-Dimer 1415.56 H ABG pH POC ABG pCO2 POC ABG pO2 ABG pO2 ABG HCO3 ABG O2 Saturation ABG Hemoglobin ABG Potassium ABG Chloride ABG Glucose Sodium Potassium Chloride Carbon Dioxide BUN Creatinine Glucose 106 H POC Glucose Ferritin 522.1 H Lactate Dehydrogenase 240 H C-Reactive Protein 17.20 H Total Protein Albumin Arterial Blood Glucose Ur Specific [place] Urine WBC (Auto) 03/03/20 03/04/20 03/04/20 22:15 02:59 02:59 WBC 15.2 H RBC 3.56 L Hgb 10.9 L Hct 33.4 L RDW 17.5 H Lymph % (Auto) Seg Neutrophils % Seg Neuts % (Manual) 93.0 H Lymphocytes % (Manual) 5.0 L Seg Neutrophils # Seg Neutrophils # Man 14.1 H Lymphocytes # (Manual) 0.8 L Monocytes # (Manual) PT 15.9 H INR 1.29 H D-Dimer ABG pH POC ABG pCO2 POC ABG pO2 ABG pO2 ABG HCO3 ABG O2 Saturation ABG Hemoglobin ABG Potassium ABG Chloride ABG Glucose Sodium Potassium Chloride Carbon Dioxide BUN Creatinine Glucose POC Glucose Ferritin Lactate Dehydrogenase C-Reactive Protein Total Protein Albumin Arterial Blood Glucose Ur Specific [place] 1.031 H Urine WBC (Auto) 8.0 H 03/04/20 03/04/20 03/05/20 02:59 16:16 04:00 WBC RBC Hgb Hct RDW Lymph % (Auto) Seg Neutrophils % Seg Neuts % (Manual) Lymphocytes % (Manual) Seg Neutrophils # Seg Neutrophils # Man Lymphocytes # (Manual) Monocytes # (Manual) PT INR D-Dimer ABG pH 7.451 H 7.498 H POC ABG pCO2 POC ABG pO2 ABG pO2 102.9 H 122.7 H ABG HCO3 ABG O2 Saturation ABG Hemoglobin 12.7 L 10.2 L ABG Potassium ABG Chloride ABG Glucose Sodium 152 H Potassium Chloride 116.9 H Carbon Dioxide BUN 27 H Creatinine 0.4 L Glucose 127 H POC Glucose Ferritin Lactate Dehydrogenase C-Reactive Protein Total Protein Albumin Arterial Blood Glucose Ur Specific [place] Urine WBC (Auto) 03/05/20 03/05/20 03/05/20 05:32 05:32 18:05 WBC 17.4 H RBC 3.35 L Hgb 10.3 L Hct 31.4 L RDW 17.2 H Lymph % (Auto) 10.9 L Seg Neutrophils % 85.3 H Seg Neuts % (Manual) Lymphocytes % (Manual) Seg Neutrophils # 14.8 H Seg Neutrophils # Man Lymphocytes # (Manual) Monocytes # (Manual) PT INR D-Dimer ABG pH POC ABG pCO2 POC ABG pO2 ABG pO2 ABG HCO3 ABG O2 Saturation ABG Hemoglobin ABG Potassium ABG Chloride ABG Glucose Sodium 150 H 146 H Potassium 3.4 L Chloride 115.0 H 113.7 H Carbon Dioxide 20 L BUN 29 H Creatinine 0.5 L 0.3 L Glucose POC Glucose Ferritin Lactate Dehydrogenase C-Reactive Protein Total Protein Albumin Arterial Blood Glucose Ur Specific [place] Urine WBC (Auto) 03/06/20 03/06/20 03/06/20 04:16 04:16 05:50 WBC 11.2 H RBC 3.05 L Hgb 9.2 L Hct 28.2 L RDW 16.8 H Lymph % (Auto) Seg Neutrophils % 80.0 H Seg Neuts % (Manual) Lymphocytes % (Manual) Seg Neutrophils # 9.0 H Seg Neutrophils # Man Lymphocytes # (Manual) Monocytes # (Manual) PT INR D-Dimer ABG pH POC ABG pCO2 POC ABG pO2 ABG pO2 194.8 H ABG HCO3 ABG O2 Saturation 99.3 H ABG Hemoglobin 9.2 L ABG Potassium ABG Chloride ABG Glucose Sodium 146 H Potassium 3.1 L Chloride 111.3 H Carbon Dioxide BUN Creatinine 0.4 L Glucose POC Glucose Ferritin Lactate Dehydrogenase C-Reactive Protein Total Protein Albumin Arterial Blood Glucose Ur Specific [place] Urine WBC (Auto) 03/07/20 03/07/20 03/07/20 02:54 05:47 06:03 WBC RBC 3.21 L Hgb 9.8 L Hct 28.6 L RDW 16.6 H Lymph % (Auto) Seg Neutrophils % 80.1 H Seg Neuts % (Manual) Lymphocytes % (Manual) Seg Neutrophils # 7.8 H Seg Neutrophils # Man Lymphocytes # (Manual) Monocytes # (Manual) PT INR D-Dimer ABG pH 7.504 H POC ABG pCO2 30.5 L POC ABG pO2 ABG pO2 ABG HCO3 ABG O2 Saturation ABG Hemoglobin 10.4 L ABG Potassium 2.7 L ABG Chloride 109.0 H ABG Glucose Sodium Potassium Chloride Carbon Dioxide BUN Creatinine Glucose POC Glucose 126 H Ferritin Lactate Dehydrogenase C-Reactive Protein Total Protein Albumin Arterial Blood Glucose Ur Specific [place] Urine WBC (Auto) 03/07/20 03/07/20 03/07/20 06:03 17:22 17:25 WBC RBC Hgb Hct RDW Lymph % (Auto) Seg Neutrophils % Seg Neuts % (Manual) Lymphocytes % (Manual) Seg Neutrophils # Seg Neutrophils # Man Lymphocytes # (Manual) Monocytes # (Manual) PT INR D-Dimer ABG pH POC ABG pCO2 POC ABG pO2 ABG pO2 ABG HCO3 ABG O2 Saturation ABG Hemoglobin ABG Potassium ABG Chloride ABG Glucose Sodium Potassium 2.7 L* Chloride 107.6 H Carbon Dioxide 21 L BUN 8 L Creatinine 0.3 L Glucose 129 H POC Glucose 119 H 125 H Ferritin Lactate Dehydrogenase C-Reactive Protein Total Protein Albumin Arterial Blood Glucose Ur Specific [place] Urine WBC (Auto) 03/07/20 03/08/20 03/08/20 23:30 04:30 16:56 WBC RBC Hgb Hct RDW Lymph % (Auto) Seg Neutrophils % Seg Neuts % (Manual) Lymphocytes % (Manual) Seg Neutrophils # Seg Neutrophils # Man Lymphocytes # (Manual) Monocytes # (Manual) PT INR D-Dimer ABG pH 7.513 H POC ABG pCO2 POC ABG pO2 ABG pO2 170.6 H ABG HCO3 ABG O2 Saturation 99.2 H ABG Hemoglobin 8.8 L ABG Potassium ABG Chloride ABG Glucose Sodium Potassium Chloride Carbon Dioxide BUN Creatinine Glucose POC Glucose 107 H 108 H Ferritin Lactate Dehydrogenase C-Reactive Protein Total Protein Albumin Arterial Blood Glucose Ur Specific [place] Urine WBC (Auto) 03/08/20 03/09/20 03/09/20 21:07 04:17 11:08 WBC RBC Hgb Hct RDW Lymph % (Auto) Seg Neutrophils % Seg Neuts % (Manual) Lymphocytes % (Manual) Seg Neutrophils # Seg Neutrophils # Man Lymphocytes # (Manual) Monocytes # (Manual) PT INR D-Dimer ABG pH 7.498 H POC ABG pCO2 POC ABG pO2 125.5 H ABG pO2 ABG HCO3 ABG O2 Saturation ABG Hemoglobin ABG Potassium ABG Chloride 109.0 H ABG Glucose 103 H Sodium Potassium Chloride 109.4 H Carbon Dioxide BUN 6 L Creatinine 0.3 L Glucose 121 H POC Glucose 123 H Ferritin Lactate Dehydrogenase C-Reactive Protein Total Protein Albumin 2.8 L Arterial Blood Glucose 103 H Ur Specific [place] Urine WBC (Auto) 03/10/20 03/10/20 03/10/20 04:46 08:10 08:10 WBC RBC Hgb 9.5 L Hct 28.6 L RDW Lymph % (Auto) Seg Neutrophils % Seg Neuts % (Manual) Lymphocytes % (Manual) Seg Neutrophils # Seg Neutrophils # Man Lymphocytes # (Manual) Monocytes # (Manual) PT INR D-Dimer ABG pH 7.533 H POC ABG pCO2 POC ABG pO2 128.2 H ABG pO2 ABG HCO3 ABG O2 Saturation ABG Hemoglobin 10.0 L ABG Potassium ABG Chloride ABG Glucose 110 H Sodium Potassium Chloride Carbon Dioxide BUN 5 L Creatinine 0.2 L Glucose POC Glucose Ferritin Lactate Dehydrogenase C-Reactive Protein Total Protein Albumin Arterial Blood Glucose 110 H Ur Specific [place] Urine WBC (Auto) 03/10/20 03/10/20 03/11/20 17:22 23:24 05:07 WBC RBC Hgb Hct RDW Lymph % (Auto) Seg Neutrophils % Seg Neuts % (Manual) Lymphocytes % (Manual) Seg Neutrophils # Seg Neutrophils # Man Lymphocytes # (Manual) Monocytes # (Manual) PT INR D-Dimer ABG pH POC ABG pCO2 POC ABG pO2 ABG pO2 ABG HCO3 ABG O2 Saturation ABG Hemoglobin ABG Potassium ABG Chloride ABG Glucose Sodium Potassium Chloride Carbon Dioxide BUN Creatinine Glucose POC Glucose 108 H 189 H 217 H Ferritin Lactate Dehydrogenase C-Reactive Protein Total Protein Albumin Arterial Blood Glucose Ur Specific [place] Urine WBC (Auto) 03/11/20 03/11/20 03/12/20 11:28 23:25 05:14 WBC RBC Hgb Hct RDW Lymph % (Auto) Seg Neutrophils % Seg Neuts % (Manual) Lymphocytes % (Manual) Seg Neutrophils # Seg Neutrophils # Man Lymphocytes # (Manual) Monocytes # (Manual) PT INR D-Dimer ABG pH POC ABG pCO2 POC ABG pO2 ABG pO2 ABG HCO3 ABG O2 Saturation ABG Hemoglobin ABG Potassium ABG Chloride ABG Glucose Sodium Potassium Chloride Carbon Dioxide BUN Creatinine Glucose POC Glucose 212 H 152 H 193 H Ferritin Lactate Dehydrogenase C-Reactive Protein Total Protein Albumin Arterial Blood Glucose Ur Specific [place] Urine WBC (Auto) 03/12/20 03/12/20 03/12/20 11:58 17:11 23:27 WBC RBC Hgb Hct RDW Lymph % (Auto) Seg Neutrophils % Seg Neuts % (Manual) Lymphocytes % (Manual) Seg Neutrophils # Seg Neutrophils # Man Lymphocytes # (Manual) Monocytes # (Manual) PT INR D-Dimer ABG pH POC ABG pCO2 POC ABG pO2 ABG pO2 ABG HCO3 ABG O2 Saturation ABG Hemoglobin ABG Potassium ABG Chloride ABG Glucose Sodium Potassium Chloride Carbon Dioxide BUN Creatinine Glucose POC Glucose 142 H 141 H 175 H Ferritin Lactate Dehydrogenase C-Reactive Protein Total Protein Albumin Arterial Blood Glucose Ur Specific [place] Urine WBC (Auto) 03/13/20 03/13/20 03/13/20 05:33 12:04 23:20 WBC RBC Hgb Hct RDW Lymph % (Auto) Seg Neutrophils % Seg Neuts % (Manual) Lymphocytes % (Manual) Seg Neutrophils # Seg Neutrophils # Man Lymphocytes # (Manual) Monocytes # (Manual) PT INR D-Dimer ABG pH POC ABG pCO2 POC ABG pO2 ABG pO2 ABG HCO3 ABG O2 Saturation ABG Hemoglobin ABG Potassium ABG Chloride ABG Glucose Sodium Potassium Chloride Carbon Dioxide BUN Creatinine Glucose POC Glucose 184 H 182 H 132 H Ferritin Lactate Dehydrogenase C-Reactive Protein Total Protein Albumin Arterial Blood Glucose Ur Specific [place] Urine WBC (Auto) 03/14/20 03/14/20 03/14/20 05:16 07:08 07:08 WBC 14.7 H RBC 3.30 L Hgb 9.8 L Hct 30.3 L RDW 17.3 H Lymph % (Auto) Seg Neutrophils % Seg Neuts % (Manual) 87.0 H Lymphocytes % (Manual) 7.0 L Seg Neutrophils # Seg Neutrophils # Man 12.8 H Lymphocytes # (Manual) 1.0 L Monocytes # (Manual) 0.9 H PT INR D-Dimer ABG pH POC ABG pCO2 POC ABG pO2 ABG pO2 ABG HCO3 ABG O2 Saturation ABG Hemoglobin ABG Potassium ABG Chloride ABG Glucose Sodium Potassium Chloride Carbon Dioxide BUN Creatinine 0.3 L Glucose 111 H POC Glucose 116 H Ferritin Lactate Dehydrogenase C-Reactive Protein Total Protein Albumin 2.5 L Arterial Blood Glucose Ur Specific [place] Urine WBC (Auto) 03/14/20 03/15/20 03/15/20 16:58 04:56 04:56 WBC RBC 3.31 L Hgb 10.2 L Hct 30.2 L RDW 17.5 H Lymph % (Auto) Seg Neutrophils % Seg Neuts % (Manual) 94.0 H Lymphocytes % (Manual) 4.0 L Seg Neutrophils # Seg Neutrophils # Man 9.7 H Lymphocytes # (Manual) 0.4 L Monocytes # (Manual) PT INR D-Dimer ABG pH POC ABG pCO2 POC ABG pO2 ABG pO2 ABG HCO3 ABG O2 Saturation ABG Hemoglobin ABG Potassium ABG Chloride ABG Glucose Sodium Potassium Chloride Carbon Dioxide BUN Creatinine 0.3 L Glucose 189 H POC Glucose 134 H Ferritin Lactate Dehydrogenase C-Reactive Protein Total Protein Albumin Arterial Blood Glucose Ur Specific [place] Urine WBC (Auto) 03/15/20 03/15/20 03/16/20 05:26 17:46 05:23 WBC RBC Hgb Hct RDW Lymph % (Auto) Seg Neutrophils % Seg Neuts % (Manual) Lymphocytes % (Manual) Seg Neutrophils # Seg Neutrophils # Man Lymphocytes # (Manual) Monocytes # (Manual) PT INR D-Dimer ABG pH POC ABG pCO2 POC ABG pO2 ABG pO2 ABG HCO3 ABG O2 Saturation ABG Hemoglobin ABG Potassium ABG Chloride ABG Glucose Sodium Potassium Chloride Carbon Dioxide BUN Creatinine Glucose POC Glucose 159 H 110 H 149 H Ferritin Lactate Dehydrogenase C-Reactive Protein Total Protein Albumin Arterial Blood Glucose Ur Specific [place] Urine WBC (Auto) 03/16/20 03/16/20 03/16/20 12:05 20:45 23:27 WBC RBC Hgb Hct RDW Lymph % (Auto) Seg Neutrophils % Seg Neuts % (Manual) Lymphocytes % (Manual) Seg Neutrophils # Seg Neutrophils # Man Lymphocytes # (Manual) Monocytes # (Manual) PT INR D-Dimer ABG pH 7.478 H POC ABG pCO2 POC ABG pO2 ABG pO2 122.9 H ABG HCO3 26.6 H ABG O2 Saturation ABG Hemoglobin 10.1 L ABG Potassium ABG Chloride ABG Glucose Sodium Potassium Chloride Carbon Dioxide BUN Creatinine Glucose POC Glucose 116 H 114 H Ferritin Lactate Dehydrogenase C-Reactive Protein Total Protein Albumin Arterial Blood Glucose Ur Specific [place] Urine WBC (Auto) 03/17/20 03/17/20 05:42 11:51 WBC RBC Hgb Hct RDW Lymph % (Auto) Seg Neutrophils % Seg Neuts % (Manual) Lymphocytes % (Manual) Seg Neutrophils # Seg Neutrophils # Man Lymphocytes # (Manual) Monocytes # (Manual) PT INR D-Dimer ABG pH POC ABG pCO2 POC ABG pO2 ABG pO2 ABG HCO3 ABG O2 Saturation ABG Hemoglobin ABG Potassium ABG Chloride ABG Glucose Sodium Potassium Chloride Carbon Dioxide BUN Creatinine Glucose POC Glucose 160 H 113 H Ferritin Lactate Dehydrogenase C-Reactive Protein Total Protein Albumin Arterial Blood Glucose Ur Specific [place] Urine WBC (Auto) Chest x-ray: image reviewed Allied health notes reviewed: RT
[2020-03-17] MEDS: ENOXAPARIN 40 MG/0.4 ML INJ SUB-Q SCH (21:59)
[2020-03-18] MEDS: ARFORMOTEROL 15 MCG/2 ML NEBU IH SCH ×2 (07:37→21:33)
[2020-03-18] MEDS: IPRATROPIUM/ALBUTEROL SULFATE 3 ML AMPUL.NEB IH SCH ×3 (07:37→21:34)
[2020-03-18] MEDS: BUDESONIDE 0.5 MG/2 ML NEBU IH SCH ×2 (07:37→21:34)
[2020-03-18] MEDS: CHOLESTYRAMINE (WITH SUGAR) 4 GM PACKET PO SCH ×2 (09:55→22:38)
[2020-03-18] MEDS: QUEtiapine 100 MG TAB PO SCH ×2 (09:55→22:38)
[2020-03-18] MEDS: methylPREDNISolone Sod Succinate 125 MG/2 ML INJ IV SCH ×2 (09:55→22:38)
[2020-03-18] MEDS: FAMOTIDINE 20 MG TAB FEEDTUBE SCH ×2 (09:55→22:38)
--- NOTE | 2020-03-18 10:45 | Progress Note ---
Assessment and Plan Assessment and plan: --PUI; COVID-19 test negative on 03/04/2020 --acute on chronic hypoxic respiratory failure; Patient has chronic tracheostomy now on ventilatory support Continue nebulizers ,wean off ventilator as tolerated . Pulmonary critical following. --MRSA pneumonia; respiratory and contact isolation Completed vancomycin, continue Bactrim DS per ID --Bilateral pneumonia; Continue current antibiotics, follow cultures Ventilatory support, pulmonary and ID following --Severe hypokalemia; resolved Closely monitor lecture lites --Hypernatremia; resolved Gentle hydration supportive care --Sepsis secondary to bilateral pneumonia/UTI Continue current antibiotics, follow cultures, ID following --Severe malnutrition; hypoalbuminemia Supportive care, nutrition consult --DVT prophylaxis;Lovenox --Restrain the patient for agitation --Full CODE STATUS; We will closely monitor the patient and adjust the management as needed 03/05/2020 -Patient is admitted for acute on chronic respiratory failure and currently on and requiring mechanical ventilation. Continue with IV antibiotics for UTI and sepsis. COVID-19 test is done and is negative. Stock Grader consulted. Continue with the current management. 03/06/2020 -Patient is admitted for acute on chronic respiratory failure. Patient is on trach and vent. Patient is on IV cefepime and vancomycin per ID recommendation. Pulmonary consulted for vent and trach management. 03/07/2020; continue ventilatory support Wean off vent as tolerated, consults and recommendations noted and appreciated 03/08/2020; We will closely monitor the patient and adjust the management as needed Plan of care reviewed with the patient and his nurse MRSA pneumonia, vancomycin, contact isolation 03/09/2020; patient remains on ventilatory support, on IV antibiotics Wean off vent as tolerated, hr shared services consultant recommendations noted and appreciated Plan of care reviewed with the patient's nurse and case management 03/10/2020; chest x-ray mild improvement, remains on ventilatory support, wean off ventilator as tolerated Contact isolation for MRSA pneumonia, continue vancomycin 03/11/2020; patient remains on ventilatory support, MRSA pneumonia on vancomycin for total 8 days and de-escalate to Bactrim DS Per ID recommendations. Contact isolation, restraint for agitation as needed 03/12/2020; we will wean off ventilator as tolerated , patient is more alert and awake today Tracheostomy on vent, on contact isolation MRSA on vancomycin, will follow consultants recommendations 03/13/2020; patient completed 8 days of vancomycin, currently on Bactrim DS, remains on ventilatory support, will wean off ventilator as tolerated We will restrain restraint patient as needed 03/14/2020; unable to wean, being off ventilator as tolerated, contact isolation for MRSA pneumonia 03/15/20. patient remains on ventilatory support, MRSA pneumonia on vancomycin for total 8 days (completed) and de-escalate to Bactrim DS Per ID recommendations. Contact isolation, restraint for agitation as needed 03/16/2020. Patient with PSV trialtidal volume 500 19/09 with an FiO2 of 28%. T-piece trials as tolerated. Monitor off antibiotics per ID recommendations. Continue IV steroids and wean per pulmonary recommendations. 03/17/2020. Patient currently tolerating T-piece trial. Continue O2 to maintain sats greater than 92%. Continue to monitor off antibiotics. Continue IV steroids per pulmonary recommendations. 03/18/2020. Continue T-piece trials as tolerated. Continue O2 to maintain sats greater than 92%. Monitor off antibiotics per ID recommendations. Wean steroids per pulmonary. History Interval history: No new issues Hospitalist Physical - Constitutional Vitals: Temp Pulse Resp BP Pulse Ox 98.9 F 53 L 21 94/61 99 03/18/20 03:55 03/18/20 08:00 03/18/20 08:00 03/18/20 08:00 03/18/20 08:00 General appearance: Present: mild distress, cachectic, disheveled, other (Tracheostomy, on ventilatory support) - EENT Eyes: Present: PERRL, EOM intact ENT: hearing intact, clear oral mucosa, dentition normal - Neck Neck: Present: supple, normal ROM - Respiratory Respiratory effort: normal Respiratory: bilateral: CTA - Cardiovascular Rhythm: regular Heart Sounds: Present: S1 & S2. Absent: gallop, rub - Extremities Extremities: no ischemia, No edema, Full ROM - Abdominal General gastrointestinal: soft, non-tender, non-distended, normal bowel sounds - Integumentary Integumentary: Present: clear, warm, dry - Neurologic Neurologic: CNII-XII intact, moves all extremities Results - Labs CBC & Chem 7: 03/15/20 04:56 03/15/20 04:56 Labs: Laboratory Last Values WBC 10.3 K/mm3 (4.5-11.0) 03/15/20 04:56 RBC 3.31 M/mm3 (3.65-5.03) L 03/15/20 04:56 Hgb 10.2 gm/dl (11.8-15.2) L 03/15/20 04:56 Hct 30.2 % (35.5-45.6) L 03/15/20 04:56 MCV 91 fl (84-94) 03/15/20 04:56 MCH 31 pg (28-32) 03/15/20 04:56 MCHC 34 % (32-34) 03/15/20 04:56 RDW 17.5 % (13.2-15.2) H 03/15/20 04:56 Plt Count 377 K/mm3 (140-440) 03/15/20 04:56 Lymph % (Auto) 13.7 % (13.4-35.0) 03/07/20 06:03 Gillespie % (Auto) [place] 03/14/20 07:08 Eos % (Auto) 0.5 % (0.0-4.3) 03/07/20 06:03 Baso % (Auto) 0.3 % (0.0-1.8) 03/07/20 06:03 Lymph # (Auto) 1.3 K/mm3 (1.2-5.4) 03/07/20 06:03 Gillespie # (Auto) 0.5 K/mm3 (0.0-0.8) 03/07/20 06:03 Eos # (Auto) 0.0 K/mm3 (0.0-0.4) 03/07/20 06:03 Baso # (Auto) 0.0 K/mm3 (0.0-0.1) 03/07/20 06:03 Add Manual Diff Complete 03/15/20 04:56 Total Counted 100 03/15/20 04:56 Seg Neutrophils % [place] 03/15/20 04:56 Seg Neuts % (Manual) 94.0 % (40.0-70.0) H 03/15/20 04:56 Band Neutrophils % 0 % 03/15/20 04:56 Lymphocytes % (Manual) 4.0 % (13.4-35.0) L 03/15/20 04:56 Reactive Lymphs % (Man) 0 % 03/15/20 04:56 Monocytes % (Manual) 2.0 % (0.0-7.3) 03/15/20 04:56 Eosinophils % (Manual) 0 % (0.0-4.3) 03/15/20 04:56 Basophils % (Manual) 0 % (0.0-1.8) 03/15/20 04:56 Metamyelocytes % 0 % 03/15/20 04:56 Myelocytes % 0 % 03/15/20 04:56 Promyelocytes % 0 % 03/15/20 04:56 Blast Cells % 0 % 03/15/20 04:56 Nucleated RBC % Not Reportable 03/15/20 04:56 Seg Neutrophils # 7.8 K/mm3 (1.8-7.7) H 03/07/20 06:03 Seg Neutrophils # Man 9.7 K/mm3 (1.8-7.7) H 03/15/20 04:56 Band Neutrophils # 0.0 K/mm3 03/15/20 04:56 Lymphocytes # (Manual) 0.4 K/mm3 (1.2-5.4) L 03/15/20 04:56 Abs React Lymphs (Man) 0.0 K/mm3 03/15/20 04:56 Monocytes # (Manual) 0.2 K/mm3 (0.0-0.8) 03/15/20 04:56 Eosinophils # (Manual) 0.0 K/mm3 (0.0-0.4) 03/15/20 04:56 Basophils # (Manual) 0.0 K/mm3 (0.0-0.1) 03/15/20 04:56 Metamyelocytes # 0.0 K/mm3 03/15/20 04:56 Myelocytes # 0.0 K/mm3 03/15/20 04:56 Promyelocytes # 0.0 K/mm3 03/15/20 04:56 Blast Cells # 0.0 K/mm3 03/15/20 04:56 WBC Morphology Not Reportable 03/15/20 04:56 Hypersegmented Neuts Not Reportable 03/15/20 04:56 Hyposegmented Neuts Not Reportable 03/15/20 04:56 Hypogranular Neuts Not Reportable 03/15/20 04:56 Smudge Cells Not Reportable 03/15/20 04:56 Toxic Granulation Not Reportable 03/15/20 04:56 Toxic Vacuolation Not Reportable 03/15/20 04:56 Dohle Bodies Not Reportable 03/15/20 04:56 Pelger-Huet Anomaly Not Reportable 03/15/20 04:56 Mike Rods Not Reportable 03/15/20 04:56 Platelet Estimate Consistent w auto 03/15/20 04:56 Clumped Platelets Not Reportable 03/15/20 04:56 Plt Clumps, EDTA Not Reportable 03/15/20 04:56 Large Platelets Not Reportable 03/15/20 04:56 Giant Platelets Not Reportable 03/15/20 04:56 Platelet Satelliting Not Reportable 03/15/20 04:56 Plt Morphology Comment Not Reportable 03/15/20 04:56 RBC Morphology Not Reportable 03/15/20 04:56 Dimorphic RBCs Not Reportable 03/15/20 04:56 Polychromasia Not Reportable 03/15/20 04:56 Hypochromasia Not Reportable 03/15/20 04:56 Poikilocytosis Not Reportable 03/15/20 04:56 Anisocytosis Not Reportable 03/15/20 04:56 Microcytosis Not Reportable 03/15/20 04:56 Macrocytosis Not Reportable 03/15/20 04:56 Spherocytes Not Reportable 03/15/20 04:56 Pappenheimer Bodies Not Reportable 03/15/20 04:56 Sickle Cells Not Reportable 03/15/20 04:56 Target Cells Rare 03/15/20 04:56 Tear Drop Cells Not Reportable 03/15/20 04:56 Ovalocytes Not Reportable 03/15/20 04:56 Helmet Cells Not Reportable 03/15/20 04:56 [place] Bodies Not Reportable 03/15/20 04:56 [place] Rings Not Reportable 03/15/20 04:56 Marcos Cells Not Reportable 03/15/20 04:56 Bite Cells Not Reportable 03/15/20 04:56 Crenated Cell Not Reportable 03/15/20 04:56 Elliptocytes Not Reportable 03/15/20 04:56 Acanthocytes (Spur) Not Reportable 03/15/20 04:56 Rouleaux Not Reportable 03/15/20 04:56 Hemoglobin C Crystals Not Reportable 03/15/20 04:56 Schistocytes Not Reportable 03/15/20 04:56 Malaria parasites Not Reportable 03/15/20 04:56 Branden Bodies Not Reportable 03/15/20 04:56 Hem Pathologist Commnt No 03/15/20 04:56 PT 15.9 Sec. (12.2-14.9) H 03/04/20 02:59 INR 1.29 (0.87-1.13) H 03/04/20 02:59 D-Dimer 1415.56 ng/mlDDU (0-234) H 03/03/20 22:00 ABG pH 7.505 (7.320-7.450) H 03/18/20 04:43 POC ABG pCO2 34.6 mmHg (32.0-48.0) 03/18/20 04:43 ABG pCO2 36.8 mm Hg 03/16/20 20:45 POC ABG pO2 132.0 mmHg (83-108) H 03/18/20 04:43 ABG pO2 122.9 mm Hg (80.0-90.0) H 03/16/20 20:45 POC ABG HCO3 26.7 03/18/20 04:43 ABG HCO3 26.6 mmol/L (20.0-26.0) H 03/16/20 20:45 ABG O2 Saturation 98.5 % (95.0-99.0) 03/16/20 20:45 ABG O2 Content 14.0 (0.0-44) 03/16/20 20:45 POC ABG Base Excess 3.7 03/18/20 04:43 ABG Base Excess 3.0 mmol/L (-2.0-3.0) 03/16/20 20:45 ABG Hemoglobin 11.2 (12.0-17.5) L 03/18/20 04:43 ABG Carboxyhemoglobin 1.0 % (0.0-5.0) 03/16/20 20:45 ABG Methemoglobin 0.5 % (0.0-1.5) 03/16/20 20:45 ABG Sodium 135.4 mmol/L (136.0-145.0) L 03/18/20 04:43 ABG Potassium 4.1 mmol/L (3.40-4.50) 03/18/20 04:43 ABG Chloride 103.0 mmol/L (98-107) 03/18/20 04:43 ABG Glucose 154 mg/dL (65-95) H 03/18/20 04:43 Oxyhemoglobin 97.0 % (95.0-99.0) 03/16/20 20:45 FiO2 30 03/18/20 04:43 Sodium 138 mmol/L (137-145) 03/15/20 04:56 Potassium 4.4 mmol/L (3.6-5.0) 03/15/20 04:56 Chloride 102.5 mmol/L (98-107) 03/15/20 04:56 Carbon Dioxide 25 mmol/L (22-30) 03/15/20 04:56 Anion Gap 15 mmol/L 03/15/20 04:56 BUN 13 mg/dL (9-20) 03/15/20 04:56 Creatinine 0.3 mg/dL (0.8-1.3) L 03/15/20 04:56 Estimated GFR > 60 ml/min 03/15/20 04:56 BUN/Creatinine Ratio 43 % 03/15/20 04:56 Glucose 189 mg/dL (75-100) H 03/15/20 04:56 POC Glucose 152 mg/dL (70-105) H 03/18/20 05:40 Lactic Acid 0.80 mmol/L (0.7-2.0) 03/04/20 02:59 Calcium 9.1 mg/dL (8.4-10.2) 03/15/20 04:56 Magnesium 2.00 mg/dL (1.7-2.3) 03/14/20 07:08 Ferritin 522.1 ng/mL (30.0-300.0) H 03/03/20 22:00 Total Bilirubin 0.20 mg/dL (0.1-1.2) 03/14/20 07:08 AST 20 units/L (5-40) 03/14/20 07:08 ALT 34 units/L (7-56) 03/14/20 07:08 Alkaline Phosphatase 82 units/L (35-129) 03/14/20 07:08 Lactate Dehydrogenase 240 units/L (91-180) H 03/03/20 22:00 C-Reactive Protein 17.20 mg/dL (0.00-1.30) H 03/03/20 22:00 Total Protein 7.0 g/dL (6.3-8.2) 03/14/20 07:08 Albumin 2.5 g/dL (3.9-5) L 03/14/20 07:08 Albumin/Globulin Ratio 0.6 % 03/14/20 07:08 Procalcitonin 0.31 ng/mL (<0.15) 03/03/20 22:00 Arterial Blood Glucose 154 mg/dL (65-95) H 03/18/20 04:43 Arterial Blood Ionized Calcium 4.8 mg/dL (4.6-5.3) 03/18/20 04:43 Urine Color Bing (Yellow) 03/03/20 22:15 Urine Turbidity Clear (Clear) 03/03/20 22:15 Urine pH 5.0 (5.0-7.0) 03/03/20 22:15 Ur Specific [place] 1.031 (1.003-1.030) H 03/03/20 22:15 Urine Protein 30 mg/dl mg/dL (Negative) 03/03/20 22:15 Urine Glucose (UA) Neg mg/dL (Negative) 03/03/20 22:15 Urine Ketones Neg mg/dL (Negative) 03/03/20 22:15 Urine Blood Neg (Negative) 03/03/20 22:15 Urine Nitrite Neg (Negative) 03/03/20 22:15 Urine Bilirubin Neg (Negative) 03/03/20 22:15 Urine Urobilinogen 4.0 mg/dL (<2.0) 03/03/20 22:15 Ur Leukocyte Esterase Tr (Negative) 03/03/20 22:15 Urine WBC (Auto) 8.0 /HPF (0.0-6.0) H 03/03/20 22:15 Urine RBC (Auto) 2.0 /HPF (0.0-6.0) 03/03/20 22:15 U Epithel Cells (Auto) 1.0 /HPF (0-13.0) 03/03/20 22:15 Urine Bacteria (Auto) 1+ /HPF (Negative) 03/03/20 22:15 Hyaline Casts 1 /LPF 03/03/20 22:15 Urine Mucus 1+ /HPF 03/03/20 22:15 Vancomycin Trough 9.0 ug/mL (5.0-20.0) 03/06/20 20:15 Coronavirus (PCR) Negative (Negative) 03/04/20 09:16 Sarah/IV: Voiding Method Condom Catheter IV Catheter Type [Right Upper INT / Saline Lock arm] IV Catheter Type [Left Upper Mid-line arm] IV Catheter Type [Right Peripheral IV Forearm] Active Medications - Current Medications Current Medications: Generic Name Dose Route Start Last Admin Trade Name Freq PRN Reason Stop Dose Admin Albuterol/Ipratropium 1 ampul 03/12/20 08:00 03/18/20 07:37 Duoneb *Not For Prn Use* IH 1 ampul TIDRT KESHAWN Administration Lipase/Protease/Amylase 1 each 03/06/20 14:54 Pancreирина Cheney 10,500 Unit FEEDTUBE PRN PRN For Clogged Feeding Tube Arformoterol Tartrate 15 mcg 03/10/20 20:00 03/18/20 07:37 Brovana Nebu IH 15 mcg Q12HRT KESHAWN Administration Budesonide 0.5 mg 03/10/20 20:00 03/18/20 07:37 Pulmicort IH 0.5 mg Q12HRT KESHAWN Administration Cholestyramine Resin 4 gm 03/14/20 13:00 03/18/20 09:55 Questran PO 03/18/20 22:01 4 gm Q12HR KESHAWN Administration Enoxaparin Sodium 40 mg 03/04/20 22:00 03/17/20 21:59 Enoxaparin SUB-Q 40 mg QDAY@2200 KESHAWN Administration Protocol Famotidine 20 mg 03/09/20 11:00 03/18/20 09:55 Pepcid FEEDTUBE 20 mg BID KESHAWN Administration Fentanyl 50 mcg 03/15/20 16:00 Sublimaze IV Q10MIN PRN ANALGESIA Fentanyl 25 mcg 03/17/20 10:00 03/17/20 09:36 Duragesic TD 25 mcg Q3D KESHAWN Administration Hydrophilic Ointment 1 applic 03/03/20 22:31 03/06/20 08:19 Vaseline Lip Therapy TP 1 applic Q2HR PRN Administration Dry Lips Magnesium Hydroxide 30 ml 03/03/20 23:45 Milk Of Magnesia PO Q4H PRN Constipation Methylprednisolone Sodium Succinate 60 mg 03/14/20 22:00 03/18/20 09:55 Solu-Medrol IV 60 mg Q12HR KESHAWN Administration Morphine Sulfate 2 mg 03/03/20 23:45 03/14/20 09:09 Morphine IV 2 mg Q4H PRN Administration Pain, Moderate (4-6) Multi-Ingred Cream/Lotion/Oil/Oint 1 applic 03/03/20 22:31 Artificial Tears Ophth Oint OU Q4HR PRN Dry Eye(s) Ondansetron HCl 4 mg 03/03/20 23:45 03/05/20 16:12 Zofran IV 4 mg Q8H PRN Administration Nausea And Vomiting Quetiapine Fumarate 100 mg 03/12/20 22:00 03/18/20 09:55 Seroquel PO 100 mg BID KESHAWN Administration Simethicone 80 mg 03/11/20 09:39 03/14/20 21:46 Mylicon PO 80 mg Q6H PRN Administration Gas pain Simple Syrup 15 ml 03/06/20 14:54 Simple Syrup FEEDTUBE PRN PRN Hypoglycemia Simple Syrup 30 ml 03/06/20 14:54 Simple Syrup FEEDTUBE PRN PRN Hypoglycemia Sodium Bicarbonate 325 mg 03/06/20 14:54 Sodium Bicarbonate FEEDTUBE PRN PRN For Clogged Feeding Tube Sodium Chloride 10 ml 03/04/20 10:00 03/18/20 09:56 Sodium Chloride Flush Syringe 10 Ml IV 10 ml BID KESHAWN Administration Sodium Chloride 10 ml 03/03/20 23:45 Sodium Chloride Flush Syringe 10 Ml IV PRN PRN LINE FLUSH Nutrition/Malnutrition Assess - Dietary Evaluation Nutrition/Malnutrition Findings: Nutrition Notes Start: 03/04/20 09:15 Freq: Status: Active Protocol: Document 03/16/20 11:48 AB (Rec: 03/16/20 12:03 AB [id number]) Co-Sign 03/16/20 11:48 LM Nutrition Notes Initial or Follow up Reassessment Current Diagnosis Sepsis,Hypertension, Respiratory Failure Other Pertinent Diagnosis Bilat pneu, sacral wound, TBI Current Diet Vital AF 1.2 at 70 ml/hr Labs/Tests Reviewed Pertinent Medications Fentanyl Pulmicort Enoxaparin Height 6 ft 3 in Weight 63.4 kg [place] Body Weight (kg) 89.09 BMI 17.4 Weight Status Underweight Subjective/Other Information F/U for TF start/tolerance. Nurse noted that pt has had loose BMs. Pt is currently tolerating TF at goal rate, per nurse. 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 Yes Is Patient Ambulatory and/or Out of Bed No REE-([place]-St. Jeor-confined to bed) 1816.932 Kcal/Kg value to use for calculation 35 Approximate Energy Requirements Using 2219 kcal/Kg Calculation Used for Recommendations Kcal/kg Additional Notes Pro needs 1.25-2g/k-127g/ day Fluid needs 1ml/kcal Nutrition Intervention Change Diet Order: Continue current TF order Nutrition Support: Vital AF 1.2 at 70 ml/hr Flush with 125 ml q4h Kcal 2,016 Protein (gm) 126 Fluid (mL) 1,363 Goal #1 TF tolerance Goal #2 TF (at goal rate) to meet 100% energy and pro needs Goal #3 Wt maintenance and/or gain Goal #4 Wound healing Anticipated Discharge Needs: Continue TF Follow-Up By: 03/18/20 Additional Comments F/U for TF tolerance, diarrhea
--- NOTE | 2020-03-18 13:11 | Progress Note ---
Assessment and Plan Sepsis, leucocytosis likely secondary to bilateral pneumonia. Acute and chronic hypoxemic respiratory failure, s/p MVS Chronic tracheostomy Bilateral pneumonia [id number] infection- negative Oropharyngeal dysphagia s/p PEG Chronic indwelling Martinez catheter h/o TBI with chronic encephalopathy Hypernatremia, improving -Keep off the vent overnight - VAP bundle addressed, aspiration precautions HOB >40 -Trach care, airway clearance, secretion management -ABG, CXR as clinically indicated- -CBC, BMP monitor leukocytosis and hypernatremia -Adjust minute ventilation as indicated for better gas-exchange -Supplemental oxygen, wean for O2 sats>90% -lung protective strategies -Bronchodilators with pulmonary hygiene per RT - wean per pulmonary driven protocols otherwise - intermittent Fentanyl for target RASS 0 to -1 -Enteric nutritonal support -Accuchecks with glycemic control per SSI (While critically ill target blood glucose of 140-180 mg/dL; avoid hypoglycemia) - avoid nephrotoxins, renally dose all medications -Chronic martinez, catheter care - continue to avoid benzodiazepines, reduce the possibility of delirium - Maintenance of sleep-wake cycle, avoid delirium - Stress ulcer and VTE prophylaxis ( Enoxaparin, add Famotidine) - PT/OT/ROM exercises - Mobility protocol, off loading, frequent turning per facility protocol to prevent pressure ulcers - Monitor hemodynamics closely - continue other care per attending / other consultants CONDITION: FAIR PROGNOSIS: FAIR CODE STATUS: FULL CODE Subjective Date of service: 03/18/20 Principal diagnosis: Severe Sepsis; PNA; Ac on ch hypoxemic resp failure; [id number] Interval history: Follow up for: Sepsis, leucocytosis likely secondary to bilateral pneumonia.;Acute and chronic hypoxemic respiratory failure, on MVS;Chronic trach eostomy;Bilateral pneumonia; [id number] infection ( negative) ; Oropharyngeal dysphagia s/p PEG Seen and examined at bedside; 24hour events reviewed; nursing and respiratory care staff consulted; no adverse overnight events reported to me; resting peacefully in bed; doing much better; has been on RTC T-piece for 24 hours Objective Vital Signs - 12hr 03/18/20 03/18/20 03/18/20 02:01 03:00 03:55 Temperature 98.9 F Pulse Rate 60 71 Pulse Rate [ Anterior Bilateral Throughout] Pulse Rate [ From Monitor] Respiratory 22 29 H Rate Respiratory Rate [Anterior Bilateral Throughout] Blood Pressure 104/62 125/71 O2 Sat by Pulse 98 99 Oximetry O2 Sat by Pulse Oximetry [ Assessment] 03/18/20 03/18/20 03/18/20 04:00 04:03 05:00 Temperature Pulse Rate 56 L 55 L 65 Pulse Rate [ Anterior Bilateral Throughout] Pulse Rate [ From Monitor] Respiratory 20 23 Rate Respiratory Rate [Anterior Bilateral Throughout] Blood Pressure 133/61 125/65 O2 Sat by Pulse 100 99 Oximetry O2 Sat by Pulse Oximetry [ Assessment] 03/18/20 03/18/20 03/18/20 06:00 07:01 07:37 Temperature Pulse Rate 57 L 66 58 L Pulse Rate [ 65 Anterior Bilateral Throughout] Pulse Rate [ From Monitor] Respiratory 22 22 Rate Respiratory 20 Rate [Anterior Bilateral Throughout] Blood Pressure 109/59 95/56 95/56 O2 Sat by Pulse 100 100 99 Oximetry O2 Sat by Pulse 99 Oximetry [ Assessment] 03/18/20 08:00 Temperature Pulse Rate 53 L Pulse Rate [ Anterior Bilateral Throughout] Pulse Rate [ 53 L From Monitor] Respiratory 27 H Rate Respiratory Rate [Anterior Bilateral Throughout] Blood Pressure 94/61 O2 Sat by Pulse 100 Oximetry O2 Sat by Pulse Oximetry [ Assessment] Constitutional: no acute distress, alert, other (trach to ATC, helmet ) Eyes: non-icteric ENT: oropharynx moist Neck: supple, no lymphadenopathy, no JVD Effort: normal Ascultation: Bilateral: diminished breath sounds, rhonchi Percussion: Bilateral: not dull Cardiovascular: regular rate and rhythm, other (S1,S2) Gastrointestinal: normoactive bowel sounds, soft, non-tender, non-distended, other (PEG in place) Integumentary: normal Extremities: no cyanosis, no edema, pulses normal Neurologic: pupils equal and round Psychiatric: affect normal CBC and BMP: 03/21/20 04:34 03/21/20 04:34 ABG, PT/INR, D-dimer: ABG ABG pH 7.505 (7.320-7.450) H 03/18/20 04:43 POC ABG pCO2 34.6 mmHg (32.0-48.0) 03/18/20 04:43 ABG pCO2 36.8 mm Hg 03/16/20 20:45 POC ABG pO2 132.0 mmHg (83-108) H 03/18/20 04:43 ABG pO2 122.9 mm Hg (80.0-90.0) H 03/16/20 20:45 POC ABG HCO3 26.7 03/18/20 04:43 ABG O2 Saturation 98.5 % (95.0-99.0) 03/16/20 20:45 PT/INR, D-dimer PT 15.9 Sec. (12.2-14.9) H 03/04/20 02:59 INR 1.29 (0.87-1.13) H 03/04/20 02:59 D-Dimer 1415.56 ng/mlDDU (0-234) H 03/03/20 22:00 Abnormal lab findings: Abnormal Labs 03/03/20 03/03/20 03/03/20 01:10 21:51 21:51 WBC 15.5 H RBC Hgb Hct 35.3 L RDW 17.9 H Lymph % (Auto) 11.6 L Seg Neutrophils % 83.7 H Seg Neuts % (Manual) Lymphocytes % (Manual) Seg Neutrophils # 13.0 H Seg Neutrophils # Man Lymphocytes # (Manual) Monocytes # (Manual) PT INR D-Dimer ABG pH POC ABG pCO2 POC ABG pO2 ABG pO2 173.4 H ABG HCO3 26.7 H ABG O2 Saturation 99.1 H ABG Hemoglobin 11.6 L ABG Sodium ABG Potassium ABG Chloride ABG Glucose Sodium 151 H Potassium Chloride 114.4 H Carbon Dioxide BUN 29 H Creatinine 0.6 L Glucose 116 H POC Glucose Ferritin Lactate Dehydrogenase C-Reactive Protein Total Protein 8.9 H Albumin 2.8 L Arterial Blood Glucose Ur Specific [place] Urine WBC (Auto) 03/03/20 03/03/20 03/03/20 22:00 22:00 22:00 WBC RBC Hgb Hct RDW Lymph % (Auto) Seg Neutrophils % Seg Neuts % (Manual) Lymphocytes % (Manual) Seg Neutrophils # Seg Neutrophils # Man Lymphocytes # (Manual) Monocytes # (Manual) PT INR D-Dimer 1415.56 H ABG pH POC ABG pCO2 POC ABG pO2 ABG pO2 ABG HCO3 ABG O2 Saturation ABG Hemoglobin ABG Sodium ABG Potassium ABG Chloride ABG Glucose Sodium Potassium Chloride Carbon Dioxide BUN Creatinine Glucose 106 H POC Glucose Ferritin 522.1 H Lactate Dehydrogenase 240 H C-Reactive Protein 17.20 H Total Protein Albumin Arterial Blood Glucose Ur Specific [place] Urine WBC (Auto) 03/03/20 03/04/20 03/04/20 22:15 02:59 02:59 WBC 15.2 H RBC 3.56 L Hgb 10.9 L Hct 33.4 L RDW 17.5 H Lymph % (Auto) Seg Neutrophils % Seg Neuts % (Manual) 93.0 H Lymphocytes % (Manual) 5.0 L Seg Neutrophils # Seg Neutrophils # Man 14.1 H Lymphocytes # (Manual) 0.8 L Monocytes # (Manual) PT 15.9 H INR 1.29 H D-Dimer ABG pH POC ABG pCO2 POC ABG pO2 ABG pO2 ABG HCO3 ABG O2 Saturation ABG Hemoglobin ABG Sodium ABG Potassium ABG Chloride ABG Glucose Sodium Potassium Chloride Carbon Dioxide BUN Creatinine Glucose POC Glucose Ferritin Lactate Dehydrogenase C-Reactive Protein Total Protein Albumin Arterial Blood Glucose Ur Specific [place] 1.031 H Urine WBC (Auto) 8.0 H 03/04/20 03/04/20 03/05/20 02:59 16:16 04:00 WBC RBC Hgb Hct RDW Lymph % (Auto) Seg Neutrophils % Seg Neuts % (Manual) Lymphocytes % (Manual) Seg Neutrophils # Seg Neutrophils # Man Lymphocytes # (Manual) Monocytes # (Manual) PT INR D-Dimer ABG pH 7.451 H 7.498 H POC ABG pCO2 POC ABG pO2 ABG pO2 102.9 H 122.7 H ABG HCO3 ABG O2 Saturation ABG Hemoglobin 12.7 L 10.2 L ABG Sodium ABG Potassium ABG Chloride ABG Glucose Sodium 152 H Potassium Chloride 116.9 H Carbon Dioxide BUN 27 H Creatinine 0.4 L Glucose 127 H POC Glucose Ferritin Lactate Dehydrogenase C-Reactive Protein Total Protein Albumin Arterial Blood Glucose Ur Specific [place] Urine WBC (Auto) 03/05/20 03/05/20 03/05/20 05:32 05:32 18:05 WBC 17.4 H RBC 3.35 L Hgb 10.3 L Hct 31.4 L RDW 17.2 H Lymph % (Auto) 10.9 L Seg Neutrophils % 85.3 H Seg Neuts % (Manual) Lymphocytes % (Manual) Seg Neutrophils # 14.8 H Seg Neutrophils # Man Lymphocytes # (Manual) Monocytes # (Manual) PT INR D-Dimer ABG pH POC ABG pCO2 POC ABG pO2 ABG pO2 ABG HCO3 ABG O2 Saturation ABG Hemoglobin ABG Sodium ABG Potassium ABG Chloride ABG Glucose Sodium 150 H 146 H Potassium 3.4 L Chloride 115.0 H 113.7 H Carbon Dioxide 20 L BUN 29 H Creatinine 0.5 L 0.3 L Glucose POC Glucose Ferritin Lactate Dehydrogenase C-Reactive Protein Total Protein Albumin Arterial Blood Glucose Ur Specific [place] Urine WBC (Auto) 03/06/20 03/06/20 03/06/20 04:16 04:16 05:50 WBC 11.2 H RBC 3.05 L Hgb 9.2 L Hct 28.2 L RDW 16.8 H Lymph % (Auto) Seg Neutrophils % 80.0 H Seg Neuts % (Manual) Lymphocytes % (Manual) Seg Neutrophils # 9.0 H Seg Neutrophils # Man Lymphocytes # (Manual) Monocytes # (Manual) PT INR D-Dimer ABG pH POC ABG pCO2 POC ABG pO2 ABG pO2 194.8 H ABG HCO3 ABG O2 Saturation 99.3 H ABG Hemoglobin 9.2 L ABG Sodium ABG Potassium ABG Chloride ABG Glucose Sodium 146 H Potassium 3.1 L Chloride 111.3 H Carbon Dioxide BUN Creatinine 0.4 L Glucose POC Glucose Ferritin Lactate Dehydrogenase C-Reactive Protein Total Protein Albumin Arterial Blood Glucose Ur Specific [place] Urine WBC (Auto) 03/07/20 03/07/20 03/07/20 02:54 05:47 06:03 WBC RBC 3.21 L Hgb 9.8 L Hct 28.6 L RDW 16.6 H Lymph % (Auto) Seg Neutrophils % 80.1 H Seg Neuts % (Manual) Lymphocytes % (Manual) Seg Neutrophils # 7.8 H Seg Neutrophils # Man Lymphocytes # (Manual) Monocytes # (Manual) PT INR D-Dimer ABG pH 7.504 H POC ABG pCO2 30.5 L POC ABG pO2 ABG pO2 ABG HCO3 ABG O2 Saturation ABG Hemoglobin 10.4 L ABG Sodium ABG Potassium 2.7 L ABG Chloride 109.0 H ABG Glucose Sodium Potassium Chloride Carbon Dioxide BUN Creatinine Glucose POC Glucose 126 H Ferritin Lactate Dehydrogenase C-Reactive Protein Total Protein Albumin Arterial Blood Glucose Ur Specific [place] Urine WBC (Auto) 03/07/20 03/07/20 03/07/20 06:03 17:22 17:25 WBC RBC Hgb Hct RDW Lymph % (Auto) Seg Neutrophils % Seg Neuts % (Manual) Lymphocytes % (Manual) Seg Neutrophils # Seg Neutrophils # Man Lymphocytes # (Manual) Monocytes # (Manual) PT INR D-Dimer ABG pH POC ABG pCO2 POC ABG pO2 ABG pO2 ABG HCO3 ABG O2 Saturation ABG Hemoglobin ABG Sodium ABG Potassium ABG Chloride ABG Glucose Sodium Potassium 2.7 L* Chloride 107.6 H Carbon Dioxide 21 L BUN 8 L Creatinine 0.3 L Glucose 129 H POC Glucose 119 H 125 H Ferritin Lactate Dehydrogenase C-Reactive Protein Total Protein Albumin Arterial Blood Glucose Ur Specific [place] Urine WBC (Auto) 03/07/20 03/08/20 03/08/20 23:30 04:30 16:56 WBC RBC Hgb Hct RDW Lymph % (Auto) Seg Neutrophils % Seg Neuts % (Manual) Lymphocytes % (Manual) Seg Neutrophils # Seg Neutrophils # Man Lymphocytes # (Manual) Monocytes # (Manual) PT INR D-Dimer ABG pH 7.513 H POC ABG pCO2 POC ABG pO2 ABG pO2 170.6 H ABG HCO3 ABG O2 Saturation 99.2 H ABG Hemoglobin 8.8 L ABG Sodium ABG Potassium ABG Chloride ABG Glucose Sodium Potassium Chloride Carbon Dioxide BUN Creatinine Glucose POC Glucose 107 H 108 H Ferritin Lactate Dehydrogenase C-Reactive Protein Total Protein Albumin Arterial Blood Glucose Ur Specific [place] Urine WBC (Auto) 03/08/20 03/09/20 03/09/20 21:07 04:17 11:08 WBC RBC Hgb Hct RDW Lymph % (Auto) Seg Neutrophils % Seg Neuts % (Manual) Lymphocytes % (Manual) Seg Neutrophils # Seg Neutrophils # Man Lymphocytes # (Manual) Monocytes # (Manual) PT INR D-Dimer ABG pH 7.498 H POC ABG pCO2 POC ABG pO2 125.5 H ABG pO2 ABG HCO3 ABG O2 Saturation ABG Hemoglobin ABG Sodium ABG Potassium ABG Chloride 109.0 H ABG Glucose 103 H Sodium Potassium Chloride 109.4 H Carbon Dioxide BUN 6 L Creatinine 0.3 L Glucose 121 H POC Glucose 123 H Ferritin Lactate Dehydrogenase C-Reactive Protein Total Protein Albumin 2.8 L Arterial Blood Glucose 103 H Ur Specific [place] Urine WBC (Auto) 03/10/20 03/10/20 03/10/20 04:46 08:10 08:10 WBC RBC Hgb 9.5 L Hct 28.6 L RDW Lymph % (Auto) Seg Neutrophils % Seg Neuts % (Manual) Lymphocytes % (Manual) Seg Neutrophils # Seg Neutrophils # Man Lymphocytes # (Manual) Monocytes # (Manual) PT INR D-Dimer ABG pH 7.533 H POC ABG pCO2 POC ABG pO2 128.2 H ABG pO2 ABG HCO3 ABG O2 Saturation ABG Hemoglobin 10.0 L ABG Sodium ABG Potassium ABG Chloride ABG Glucose 110 H Sodium Potassium Chloride Carbon Dioxide BUN 5 L Creatinine 0.2 L Glucose POC Glucose Ferritin Lactate Dehydrogenase C-Reactive Protein Total Protein Albumin Arterial Blood Glucose 110 H Ur Specific [place] Urine WBC (Auto) 03/10/20 03/10/20 03/11/20 17:22 23:24 05:07 WBC RBC Hgb Hct RDW Lymph % (Auto) Seg Neutrophils % Seg Neuts % (Manual) Lymphocytes % (Manual) Seg Neutrophils # Seg Neutrophils # Man Lymphocytes # (Manual) Monocytes # (Manual) PT INR D-Dimer ABG pH POC ABG pCO2 POC ABG pO2 ABG pO2 ABG HCO3 ABG O2 Saturation ABG Hemoglobin ABG Sodium ABG Potassium ABG Chloride ABG Glucose Sodium Potassium Chloride Carbon Dioxide BUN Creatinine Glucose POC Glucose 108 H 189 H 217 H Ferritin Lactate Dehydrogenase C-Reactive Protein Total Protein Albumin Arterial Blood Glucose Ur Specific [place] Urine WBC (Auto) 03/11/20 03/11/20 03/12/20 11:28 23:25 05:14 WBC RBC Hgb Hct RDW Lymph % (Auto) Seg Neutrophils % Seg Neuts % (Manual) Lymphocytes % (Manual) Seg Neutrophils # Seg Neutrophils # Man Lymphocytes # (Manual) Monocytes # (Manual) PT INR D-Dimer ABG pH POC ABG pCO2 POC ABG pO2 ABG pO2 ABG HCO3 ABG O2 Saturation ABG Hemoglobin ABG Sodium ABG Potassium ABG Chloride ABG Glucose Sodium Potassium Chloride Carbon Dioxide BUN Creatinine Glucose POC Glucose 212 H 152 H 193 H Ferritin Lactate Dehydrogenase C-Reactive Protein Total Protein Albumin Arterial Blood Glucose Ur Specific [place] Urine WBC (Auto) 03/12/20 03/12/20 03/12/20 11:58 17:11 23:27 WBC RBC Hgb Hct RDW Lymph % (Auto) Seg Neutrophils % Seg Neuts % (Manual) Lymphocytes % (Manual) Seg Neutrophils # Seg Neutrophils # Man Lymphocytes # (Manual) Monocytes # (Manual) PT INR D-Dimer ABG pH POC ABG pCO2 POC ABG pO2 ABG pO2 ABG HCO3 ABG O2 Saturation ABG Hemoglobin ABG Sodium ABG Potassium ABG Chloride ABG Glucose Sodium Potassium Chloride Carbon Dioxide BUN Creatinine Glucose POC Glucose 142 H 141 H 175 H Ferritin Lactate Dehydrogenase C-Reactive Protein Total Protein Albumin Arterial Blood Glucose Ur Specific [place] Urine WBC (Auto) 03/13/20 03/13/20 03/13/20 05:33 12:04 23:20 WBC RBC Hgb Hct RDW Lymph % (Auto) Seg Neutrophils % Seg Neuts % (Manual) Lymphocytes % (Manual) Seg Neutrophils # Seg Neutrophils # Man Lymphocytes # (Manual) Monocytes # (Manual) PT INR D-Dimer ABG pH POC ABG pCO2 POC ABG pO2 ABG pO2 ABG HCO3 ABG O2 Saturation ABG Hemoglobin ABG Sodium ABG Potassium ABG Chloride ABG Glucose Sodium Potassium Chloride Carbon Dioxide BUN Creatinine Glucose POC Glucose 184 H 182 H 132 H Ferritin Lactate Dehydrogenase C-Reactive Protein Total Protein Albumin Arterial Blood Glucose Ur Specific [place] Urine WBC (Auto) 03/14/20 03/14/20 03/14/20 05:16 07:08 07:08 WBC 14.7 H RBC 3.30 L Hgb 9.8 L Hct 30.3 L RDW 17.3 H Lymph % (Auto) Seg Neutrophils % Seg Neuts % (Manual) 87.0 H Lymphocytes % (Manual) 7.0 L Seg Neutrophils # Seg Neutrophils # Man 12.8 H Lymphocytes # (Manual) 1.0 L Monocytes # (Manual) 0.9 H PT INR D-Dimer ABG pH POC ABG pCO2 POC ABG pO2 ABG pO2 ABG HCO3 ABG O2 Saturation ABG Hemoglobin ABG Sodium ABG Potassium ABG Chloride ABG Glucose Sodium Potassium Chloride Carbon Dioxide BUN Creatinine 0.3 L Glucose 111 H POC Glucose 116 H Ferritin Lactate Dehydrogenase C-Reactive Protein Total Protein Albumin 2.5 L Arterial Blood Glucose Ur Specific [place] Urine WBC (Auto) 03/14/20 03/15/20 03/15/20 16:58 04:56 04:56 WBC RBC 3.31 L Hgb 10.2 L Hct 30.2 L RDW 17.5 H Lymph % (Auto) Seg Neutrophils % Seg Neuts % (Manual) 94.0 H Lymphocytes % (Manual) 4.0 L Seg Neutrophils # Seg Neutrophils # Man 9.7 H Lymphocytes # (Manual) 0.4 L Monocytes # (Manual) PT INR D-Dimer ABG pH POC ABG pCO2 POC ABG pO2 ABG pO2 ABG HCO3 ABG O2 Saturation ABG Hemoglobin ABG Sodium ABG Potassium ABG Chloride ABG Glucose Sodium Potassium Chloride Carbon Dioxide BUN Creatinine 0.3 L Glucose 189 H POC Glucose 134 H Ferritin Lactate Dehydrogenase C-Reactive Protein Total Protein Albumin Arterial Blood Glucose Ur Specific [place] Urine WBC (Auto) 03/15/20 03/15/20 03/16/20 05:26 17:46 05:23 WBC RBC Hgb Hct RDW Lymph % (Auto) Seg Neutrophils % Seg Neuts % (Manual) Lymphocytes % (Manual) Seg Neutrophils # Seg Neutrophils # Man Lymphocytes # (Manual) Monocytes # (Manual) PT INR D-Dimer ABG pH POC ABG pCO2 POC ABG pO2 ABG pO2 ABG HCO3 ABG O2 Saturation ABG Hemoglobin ABG Sodium ABG Potassium ABG Chloride ABG Glucose Sodium Potassium Chloride Carbon Dioxide BUN Creatinine Glucose POC Glucose 159 H 110 H 149 H Ferritin Lactate Dehydrogenase C-Reactive Protein Total Protein Albumin Arterial Blood Glucose Ur Specific [place] Urine WBC (Auto) 03/16/20 03/16/20 03/16/20 12:05 20:45 23:27 WBC RBC Hgb Hct RDW Lymph % (Auto) Seg Neutrophils % Seg Neuts % (Manual) Lymphocytes % (Manual) Seg Neutrophils # Seg Neutrophils # Man Lymphocytes # (Manual) Monocytes # (Manual) PT INR D-Dimer ABG pH 7.478 H POC ABG pCO2 POC ABG pO2 ABG pO2 122.9 H ABG HCO3 26.6 H ABG O2 Saturation ABG Hemoglobin 10.1 L ABG Sodium ABG Potassium ABG Chloride ABG Glucose Sodium Potassium Chloride Carbon Dioxide BUN Creatinine Glucose POC Glucose 116 H 114 H Ferritin Lactate Dehydrogenase C-Reactive Protein Total Protein Albumin Arterial Blood Glucose Ur Specific [place] Urine WBC (Auto) 03/17/20 03/17/20 03/17/20 05:42 11:51 18:19 WBC RBC Hgb Hct RDW Lymph % (Auto) Seg Neutrophils % Seg Neuts % (Manual) Lymphocytes % (Manual) Seg Neutrophils # Seg Neutrophils # Man Lymphocytes # (Manual) Monocytes # (Manual) PT INR D-Dimer ABG pH POC ABG pCO2 POC ABG pO2 ABG pO2 ABG HCO3 ABG O2 Saturation ABG Hemoglobin ABG Sodium ABG Potassium ABG Chloride ABG Glucose Sodium Potassium Chloride Carbon Dioxide BUN Creatinine Glucose POC Glucose 160 H 113 H 115 H Ferritin Lactate Dehydrogenase C-Reactive Protein Total Protein Albumin Arterial Blood Glucose Ur Specific [place] Urine WBC (Auto) 03/17/20 03/18/20 03/18/20 23:36 04:43 05:40 WBC RBC Hgb Hct RDW Lymph % (Auto) Seg Neutrophils % Seg Neuts % (Manual) Lymphocytes % (Manual) Seg Neutrophils # Seg Neutrophils # Man Lymphocytes # (Manual) Monocytes # (Manual) PT INR D-Dimer ABG pH 7.505 H POC ABG pCO2 POC ABG pO2 132.0 H ABG pO2 ABG HCO3 ABG O2 Saturation ABG Hemoglobin 11.2 L ABG Sodium 135.4 L ABG Potassium ABG Chloride ABG Glucose 154 H Sodium Potassium Chloride Carbon Dioxide BUN Creatinine Glucose POC Glucose 108 H 152 H Ferritin Lactate Dehydrogenase C-Reactive Protein Total Protein Albumin Arterial Blood Glucose 154 H Ur Specific [place] Urine WBC (Auto) Allied health notes reviewed: RT
[2020-03-18] MEDS: ENOXAPARIN 40 MG/0.4 ML INJ SUB-Q SCH (22:38)
[2020-03-19] MEDS: BUDESONIDE 0.5 MG/2 ML NEBU IH SCH ×2 (07:57→22:03)
[2020-03-19] MEDS: IPRATROPIUM/ALBUTEROL SULFATE 3 ML AMPUL.NEB IH SCH ×3 (07:57→22:03)
[2020-03-19] MEDS: ARFORMOTEROL 15 MCG/2 ML NEBU IH SCH ×2 (07:57→22:03)
[2020-03-19 09:18] LABS: Blood Urea Nitrogen 18 mg/dL (9-20); Calcium 9.3 mg/dL (8.4-10.2); Hemolysis Index 19
[2020-03-19 09:20] LABS: BUN/Creatinine Ratio 60
[2020-03-19] MEDS: methylPREDNISolone Sod Succinate 125 MG/2 ML INJ IV SCH (09:48)
[2020-03-19] MEDS: FAMOTIDINE 20 MG TAB FEEDTUBE SCH ×2 (09:48→21:20)
[2020-03-19] MEDS: QUEtiapine 100 MG TAB PO SCH ×2 (09:48→21:20)
--- NOTE | 2020-03-19 10:36 | Progress Note ---
Assessment and Plan Sepsis, leucocytosis likely secondary to bilateral pneumonia. Acute and chronic hypoxemic respiratory failure, on MVS Chronic tracheostomy Bilateral pneumonia [id number] infection Oropharyngeal dysphagia s/p PEG Chronic indwelling Martinez cather h/o TBI with chronic encephalopathy Hypernatremia - continue LTAC evaluation - continue BID Questran re: loose stools - continue Solumedrol at 60 mg IV q12h (tapered to 40 mg IV q12h) - continue care as below otherwise; - continue Seroquel for sedation / anxiolysis - continue Brovana & Pulmicort re: COPD - continue empiric steroids re: COPD exacerbation - continue contact isolation for MRSA - continue accuchecks with glycemic control per SSI for target blood glucose of < 180 mg/dL; avoid hypoglycemia - continue to wean supplemental oxygen for target O2 sat's > 90% acutely - VAP bundle addressed - continue lung protective strategies - continue bronchodilators with pulmonary hygiene per RT - wean per pulmonary driven protocols otherwise - Chronic martinez, catheter care - avoid nephrotoxins, renally dose all medications - continue to avoid benzodiazepine's, reduce the possibility of delirium - completed AB's per ID rec's, follow cultures and de-escalate as indicated - prn analgesia per CPOT score - Maintenance of sleep-wake cycle, avoid delirium - continue enteral nutritional support at goal rate as tolerated - G.I. & VTE prophylaxis with Famotidine and enoxaparin - PT/OT/ROM exercises - continue mobility protocols for pressure ulcer prophylaxis - Monitor hemodynamics closely - continue other care per attending / other consultants - discharge planning ongoing concurrently ... transfer to telemetry OK .... Re-evaluate in am & prn CONDITION: FAIR PROGNOSIS: GUARDED CODE STATUS: FULL CODE Subjective Date of service: 03/19/20 Principal diagnosis: Severe Sepsis; PNA; Ac on ch hypoxemic resp failure; [id number] Interval history: Patient is seen today for: Severe Sepsis; Pneumonia; Acute on chronic hypoxemic respiratory failure; Chronic tracheostomy; [id number] infection; h/o TBI with chronic encephalopathy; Hypernatremia Seen and examined at bedside; 24hour events reviewed; nursing and respiratory care staff consulted; no adverse overnight events reported to me; resting pe acefully in bed; doing much better; has been on RTC T-piece X 48 hours now. Objective Vital Signs - 12hr 03/18/20 03/18/20 03/19/20 23:00 23:31 00:00 Temperature 98.3 F Pulse Rate 60 48 L 48 L Pulse Rate [ Anterior Bilateral Throughout] Respiratory 22 17 Rate Respiratory Rate [Anterior Bilateral Throughout] Blood Pressure 120/70 115/68 O2 Sat by Pulse 99 99 Oximetry O2 Sat by Pulse 99 Oximetry [ Assessment] 03/19/20 03/19/20 03/19/20 00:01 00:31 01:01 Temperature Pulse Rate 59 L 52 L 48 L Pulse Rate [ Anterior Bilateral Throughout] Respiratory 18 17 16 Rate Respiratory Rate [Anterior Bilateral Throughout] Blood Pressure 124/77 130/70 119/65 O2 Sat by Pulse 100 97 98 Oximetry O2 Sat by Pulse Oximetry [ Assessment] 03/19/20 03/19/20 03/19/20 01:31 02:00 02:31 Temperature Pulse Rate 49 L 57 L 50 L Pulse Rate [ Anterior Bilateral Throughout] Respiratory 16 17 16 Rate Respiratory Rate [Anterior Bilateral Throughout] Blood Pressure 125/64 110/66 124/74 O2 Sat by Pulse 99 98 Oximetry O2 Sat by Pulse Oximetry [ Assessment] 03/19/20 03/19/20 03/19/20 03:00 03:30 03:40 Temperature 98.3 F Pulse Rate 62 60 Pulse Rate [ Anterior Bilateral Throughout] Respiratory 19 18 Rate Respiratory Rate [Anterior Bilateral Throughout] Blood Pressure 124/74 111/74 O2 Sat by Pulse 99 99 Oximetry O2 Sat by Pulse Oximetry [ Assessment] 03/19/20 03/19/20 03/19/20 04:00 04:05 04:30 Temperature Pulse Rate 75 59 L 59 L Pulse Rate [ Anterior Bilateral Throughout] Respiratory 21 19 Rate Respiratory Rate [Anterior Bilateral Throughout] Blood Pressure 110/75 110/71 O2 Sat by Pulse 100 99 Oximetry O2 Sat by Pulse Oximetry [ Assessment] 03/19/20 03/19/20 03/19/20 05:00 05:30 06:00 Temperature Pulse Rate 55 L 68 61 Pulse Rate [ Anterior Bilateral Throughout] Respiratory 16 26 H 13 Rate Respiratory Rate [Anterior Bilateral Throughout] Blood Pressure 104/64 116/76 118/83 O2 Sat by Pulse 100 100 100 Oximetry O2 Sat by Pulse Oximetry [ Assessment] 03/19/20 03/19/20 03/19/20 06:30 07:00 07:30 Temperature Pulse Rate 49 L 48 L 38 L Pulse Rate [ Anterior Bilateral Throughout] Respiratory 19 18 18 Rate Respiratory Rate [Anterior Bilateral Throughout] Blood Pressure 113/65 122/68 119/65 O2 Sat by Pulse 100 100 99 Oximetry O2 Sat by Pulse Oximetry [ Assessment] 03/19/20 03/19/20 03/19/20 07:56 07:57 08:00 Temperature Pulse Rate 42 L Pulse Rate [ 44 L Anterior Bilateral Throughout] Respiratory 20 Rate Respiratory 20 Rate [Anterior Bilateral Throughout] Blood Pressure 130/66 O2 Sat by Pulse 100 100 Oximetry O2 Sat by Pulse Oximetry [ Assessment] Constitutional: no acute distress, other (elderly thin male with mildly increased respiratory effort at rest) Eyes: non-icteric ENT: oropharynx moist, other (+ midline Shiley tracheostomy) Neck: supple, no lymphadenopathy, no JVD Effort: mildly labored Ascultation: Bilateral: diminished breath sounds, rhonchi (scant), other (pr olonged exp phase) Percussion: Bilateral: not dull Cardiovascular: regular rate and rhythm, other (S1,S2) Gastrointestinal: normoactive bowel sounds, soft, non-tender, non-distended, other (PEG in place) Integumentary: normal Extremities: no cyanosis, no edema, pulses normal Neurologic: pupils equal and round, CN II-XII normal, unable to assess, other (RUExt weakness) Psychiatric: anxious CBC and BMP: 03/15/20 04:56 03/19/20 08:28 ABG, PT/INR, D-dimer: ABG ABG pH 7.505 (7.320-7.450) H 03/18/20 04:43 POC ABG pCO2 34.6 mmHg (32.0-48.0) 03/18/20 04:43 ABG pCO2 36.8 mm Hg 03/16/20 20:45 POC ABG pO2 132.0 mmHg (83-108) H 03/18/20 04:43 ABG pO2 122.9 mm Hg (80.0-90.0) H 03/16/20 20:45 POC ABG HCO3 26.7 03/18/20 04:43 ABG O2 Saturation 98.5 % (95.0-99.0) 03/16/20 20:45 PT/INR, D-dimer PT 15.9 Sec. (12.2-14.9) H 03/04/20 02:59 INR 1.29 (0.87-1.13) H 03/04/20 02:59 D-Dimer 1415.56 ng/mlDDU (0-234) H 03/03/20 22:00 Abnormal lab findings: Abnormal Labs 03/03/20 03/03/20 03/03/20 01:10 21:51 21:51 WBC 15.5 H RBC Hgb Hct 35.3 L RDW 17.9 H Lymph % (Auto) 11.6 L Seg Neutrophils % 83.7 H Seg Neuts % (Manual) Lymphocytes % (Manual) Seg Neutrophils # 13.0 H Seg Neutrophils # Man Lymphocytes # (Manual) Monocytes # (Manual) PT INR D-Dimer ABG pH POC ABG pCO2 POC ABG pO2 ABG pO2 173.4 H ABG HCO3 26.7 H ABG O2 Saturation 99.1 H ABG Hemoglobin 11.6 L ABG Sodium ABG Potassium ABG Chloride ABG Glucose Sodium 151 H Potassium Chloride 114.4 H Carbon Dioxide BUN 29 H Creatinine 0.6 L Glucose 116 H POC Glucose Ferritin Lactate Dehydrogenase C-Reactive Protein Total Protein 8.9 H Albumin 2.8 L Arterial Blood Glucose Ur Specific [place] Urine WBC (Auto) 03/03/20 03/03/20 03/03/20 22:00 22:00 22:00 WBC RBC Hgb Hct RDW Lymph % (Auto) Seg Neutrophils % Seg Neuts % (Manual) Lymphocytes % (Manual) Seg Neutrophils # Seg Neutrophils # Man Lymphocytes # (Manual) Monocytes # (Manual) PT INR D-Dimer 1415.56 H ABG pH POC ABG pCO2 POC ABG pO2 ABG pO2 ABG HCO3 ABG O2 Saturation ABG Hemoglobin ABG Sodium ABG Potassium ABG Chloride ABG Glucose Sodium Potassium Chloride Carbon Dioxide BUN Creatinine Glucose 106 H POC Glucose Ferritin 522.1 H Lactate Dehydrogenase 240 H C-Reactive Protein 17.20 H Total Protein Albumin Arterial Blood Glucose Ur Specific [place] Urine WBC (Auto) 03/03/20 03/04/20 03/04/20 22:15 02:59 02:59 WBC 15.2 H RBC 3.56 L Hgb 10.9 L Hct 33.4 L RDW 17.5 H Lymph % (Auto) Seg Neutrophils % Seg Neuts % (Manual) 93.0 H Lymphocytes % (Manual) 5.0 L Seg Neutrophils # Seg Neutrophils # Man 14.1 H Lymphocytes # (Manual) 0.8 L Monocytes # (Manual) PT 15.9 H INR 1.29 H D-Dimer ABG pH POC ABG pCO2 POC ABG pO2 ABG pO2 ABG HCO3 ABG O2 Saturation ABG Hemoglobin ABG Sodium ABG Potassium ABG Chloride ABG Glucose Sodium Potassium Chloride Carbon Dioxide BUN Creatinine Glucose POC Glucose Ferritin Lactate Dehydrogenase C-Reactive Protein Total Protein Albumin Arterial Blood Glucose Ur Specific [place] 1.031 H Urine WBC (Auto) 8.0 H 03/04/20 03/04/20 03/05/20 02:59 16:16 04:00 WBC RBC Hgb Hct RDW Lymph % (Auto) Seg Neutrophils % Seg Neuts % (Manual) Lymphocytes % (Manual) Seg Neutrophils # Seg Neutrophils # Man Lymphocytes # (Manual) Monocytes # (Manual) PT INR D-Dimer ABG pH 7.451 H 7.498 H POC ABG pCO2 POC ABG pO2 ABG pO2 102.9 H 122.7 H ABG HCO3 ABG O2 Saturation ABG Hemoglobin 12.7 L 10.2 L ABG Sodium ABG Potassium ABG Chloride ABG Glucose Sodium 152 H Potassium Chloride 116.9 H Carbon Dioxide BUN 27 H Creatinine 0.4 L Glucose 127 H POC Glucose Ferritin Lactate Dehydrogenase C-Reactive Protein Total Protein Albumin Arterial Blood Glucose Ur Specific [place] Urine WBC (Auto) 03/05/20 03/05/20 03/05/20 05:32 05:32 18:05 WBC 17.4 H RBC 3.35 L Hgb 10.3 L Hct 31.4 L RDW 17.2 H Lymph % (Auto) 10.9 L Seg Neutrophils % 85.3 H Seg Neuts % (Manual) Lymphocytes % (Manual) Seg Neutrophils # 14.8 H Seg Neutrophils # Man Lymphocytes # (Manual) Monocytes # (Manual) PT INR D-Dimer ABG pH POC ABG pCO2 POC ABG pO2 ABG pO2 ABG HCO3 ABG O2 Saturation ABG Hemoglobin ABG Sodium ABG Potassium ABG Chloride ABG Glucose Sodium 150 H 146 H Potassium 3.4 L Chloride 115.0 H 113.7 H Carbon Dioxide 20 L BUN 29 H Creatinine 0.5 L 0.3 L Glucose POC Glucose Ferritin Lactate Dehydrogenase C-Reactive Protein Total Protein Albumin Arterial Blood Glucose Ur Specific [place] Urine WBC (Auto) 03/06/20 03/06/20 03/06/20 04:16 04:16 05:50 WBC 11.2 H RBC 3.05 L Hgb 9.2 L Hct 28.2 L RDW 16.8 H Lymph % (Auto) Seg Neutrophils % 80.0 H Seg Neuts % (Manual) Lymphocytes % (Manual) Seg Neutrophils # 9.0 H Seg Neutrophils # Man Lymphocytes # (Manual) Monocytes # (Manual) PT INR D-Dimer ABG pH POC ABG pCO2 POC ABG pO2 ABG pO2 194.8 H ABG HCO3 ABG O2 Saturation 99.3 H ABG Hemoglobin 9.2 L ABG Sodium ABG Potassium ABG Chloride ABG Glucose Sodium 146 H Potassium 3.1 L Chloride 111.3 H Carbon Dioxide BUN Creatinine 0.4 L Glucose POC Glucose Ferritin Lactate Dehydrogenase C-Reactive Protein Total Protein Albumin Arterial Blood Glucose Ur Specific [place] Urine WBC (Auto) 03/07/20 03/07/20 03/07/20 02:54 05:47 06:03 WBC RBC 3.21 L Hgb 9.8 L Hct 28.6 L RDW 16.6 H Lymph % (Auto) Seg Neutrophils % 80.1 H Seg Neuts % (Manual) Lymphocytes % (Manual) Seg Neutrophils # 7.8 H Seg Neutrophils # Man Lymphocytes # (Manual) Monocytes # (Manual) PT INR D-Dimer ABG pH 7.504 H POC ABG pCO2 30.5 L POC ABG pO2 ABG pO2 ABG HCO3 ABG O2 Saturation ABG Hemoglobin 10.4 L ABG Sodium ABG Potassium 2.7 L ABG Chloride 109.0 H ABG Glucose Sodium Potassium Chloride Carbon Dioxide BUN Creatinine Glucose POC Glucose 126 H Ferritin Lactate Dehydrogenase C-Reactive Protein Total Protein Albumin Arterial Blood Glucose Ur Specific [place] Urine WBC (Auto) 03/07/20 03/07/20 03/07/20 06:03 17:22 17:25 WBC RBC Hgb Hct RDW Lymph % (Auto) Seg Neutrophils % Seg Neuts % (Manual) Lymphocytes % (Manual) Seg Neutrophils # Seg Neutrophils # Man Lymphocytes # (Manual) Monocytes # (Manual) PT INR D-Dimer ABG pH POC ABG pCO2 POC ABG pO2 ABG pO2 ABG HCO3 ABG O2 Saturation ABG Hemoglobin ABG Sodium ABG Potassium ABG Chloride ABG Glucose Sodium Potassium 2.7 L* Chloride 107.6 H Carbon Dioxide 21 L BUN 8 L Creatinine 0.3 L Glucose 129 H POC Glucose 119 H 125 H Ferritin Lactate Dehydrogenase C-Reactive Protein Total Protein Albumin Arterial Blood Glucose Ur Specific [place] Urine WBC (Auto) 03/07/20 03/08/20 03/08/20 23:30 04:30 16:56 WBC RBC Hgb Hct RDW Lymph % (Auto) Seg Neutrophils % Seg Neuts % (Manual) Lymphocytes % (Manual) Seg Neutrophils # Seg Neutrophils # Man Lymphocytes # (Manual) Monocytes # (Manual) PT INR D-Dimer ABG pH 7.513 H POC ABG pCO2 POC ABG pO2 ABG pO2 170.6 H ABG HCO3 ABG O2 Saturation 99.2 H ABG Hemoglobin 8.8 L ABG Sodium ABG Potassium ABG Chloride ABG Glucose Sodium Potassium Chloride Carbon Dioxide BUN Creatinine Glucose POC Glucose 107 H 108 H Ferritin Lactate Dehydrogenase C-Reactive Protein Total Protein Albumin Arterial Blood Glucose Ur Specific [place] Urine WBC (Auto) 03/08/20 03/09/20 03/09/20 21:07 04:17 11:08 WBC RBC Hgb Hct RDW Lymph % (Auto) Seg Neutrophils % Seg Neuts % (Manual) Lymphocytes % (Manual) Seg Neutrophils # Seg Neutrophils # Man Lymphocytes # (Manual) Monocytes # (Manual) PT INR D-Dimer ABG pH 7.498 H POC ABG pCO2 POC ABG pO2 125.5 H ABG pO2 ABG HCO3 ABG O2 Saturation ABG Hemoglobin ABG Sodium ABG Potassium ABG Chloride 109.0 H ABG Glucose 103 H Sodium Potassium Chloride 109.4 H Carbon Dioxide BUN 6 L Creatinine 0.3 L Glucose 121 H POC Glucose 123 H Ferritin Lactate Dehydrogenase C-Reactive Protein Total Protein Albumin 2.8 L Arterial Blood Glucose 103 H Ur Specific [place] Urine WBC (Auto) 03/10/20 03/10/20 03/10/20 04:46 08:10 08:10 WBC RBC Hgb 9.5 L Hct 28.6 L RDW Lymph % (Auto) Seg Neutrophils % Seg Neuts % (Manual) Lymphocytes % (Manual) Seg Neutrophils # Seg Neutrophils # Man Lymphocytes # (Manual) Monocytes # (Manual) PT INR D-Dimer ABG pH 7.533 H POC ABG pCO2 POC ABG pO2 128.2 H ABG pO2 ABG HCO3 ABG O2 Saturation ABG Hemoglobin 10.0 L ABG Sodium ABG Potassium ABG Chloride ABG Glucose 110 H Sodium Potassium Chloride Carbon Dioxide BUN 5 L Creatinine 0.2 L Glucose POC Glucose Ferritin Lactate Dehydrogenase C-Reactive Protein Total Protein Albumin Arterial Blood Glucose 110 H Ur Specific [place] Urine WBC (Auto) 03/10/20 03/10/20 03/11/20 17:22 23:24 05:07 WBC RBC Hgb Hct RDW Lymph % (Auto) Seg Neutrophils % Seg Neuts % (Manual) Lymphocytes % (Manual) Seg Neutrophils # Seg Neutrophils # Man Lymphocytes # (Manual) Monocytes # (Manual) PT INR D-Dimer ABG pH POC ABG pCO2 POC ABG pO2 ABG pO2 ABG HCO3 ABG O2 Saturation ABG Hemoglobin ABG Sodium ABG Potassium ABG Chloride ABG Glucose Sodium Potassium Chloride Carbon Dioxide BUN Creatinine Glucose POC Glucose 108 H 189 H 217 H Ferritin Lactate Dehydrogenase C-Reactive Protein Total Protein Albumin Arterial Blood Glucose Ur Specific [place] Urine WBC (Auto) 03/11/20 03/11/20 03/12/20 11:28 23:25 05:14 WBC RBC Hgb Hct RDW Lymph % (Auto) Seg Neutrophils % Seg Neuts % (Manual) Lymphocytes % (Manual) Seg Neutrophils # Seg Neutrophils # Man Lymphocytes # (Manual) Monocytes # (Manual) PT INR D-Dimer ABG pH POC ABG pCO2 POC ABG pO2 ABG pO2 ABG HCO3 ABG O2 Saturation ABG Hemoglobin ABG Sodium ABG Potassium ABG Chloride ABG Glucose Sodium Potassium Chloride Carbon Dioxide BUN Creatinine Glucose POC Glucose 212 H 152 H 193 H Ferritin Lactate Dehydrogenase C-Reactive Protein Total Protein Albumin Arterial Blood Glucose Ur Specific [place] Urine WBC (Auto) 03/12/20 03/12/20 03/12/20 11:58 17:11 23:27 WBC RBC Hgb Hct RDW Lymph % (Auto) Seg Neutrophils % Seg Neuts % (Manual) Lymphocytes % (Manual) Seg Neutrophils # Seg Neutrophils # Man Lymphocytes # (Manual) Monocytes # (Manual) PT INR D-Dimer ABG pH POC ABG pCO2 POC ABG pO2 ABG pO2 ABG HCO3 ABG O2 Saturation ABG Hemoglobin ABG Sodium ABG Potassium ABG Chloride ABG Glucose Sodium Potassium Chloride Carbon Dioxide BUN Creatinine Glucose POC Glucose 142 H 141 H 175 H Ferritin Lactate Dehydrogenase C-Reactive Protein Total Protein Albumin Arterial Blood Glucose Ur Specific [place] Urine WBC (Auto) 03/13/20 03/13/20 03/13/20 05:33 12:04 23:20 WBC RBC Hgb Hct RDW Lymph % (Auto) Seg Neutrophils % Seg Neuts % (Manual) Lymphocytes % (Manual) Seg Neutrophils # Seg Neutrophils # Man Lymphocytes # (Manual) Monocytes # (Manual) PT INR D-Dimer ABG pH POC ABG pCO2 POC ABG pO2 ABG pO2 ABG HCO3 ABG O2 Saturation ABG Hemoglobin ABG Sodium ABG Potassium ABG Chloride ABG Glucose Sodium Potassium Chloride Carbon Dioxide BUN Creatinine Glucose POC Glucose 184 H 182 H 132 H Ferritin Lactate Dehydrogenase C-Reactive Protein Total Protein Albumin Arterial Blood Glucose Ur Specific [place] Urine WBC (Auto) 03/14/20 03/14/20 03/14/20 05:16 07:08 07:08 WBC 14.7 H RBC 3.30 L Hgb 9.8 L Hct 30.3 L RDW 17.3 H Lymph % (Auto) Seg Neutrophils % Seg Neuts % (Manual) 87.0 H Lymphocytes % (Manual) 7.0 L Seg Neutrophils # Seg Neutrophils # Man 12.8 H Lymphocytes # (Manual) 1.0 L Monocytes # (Manual) 0.9 H PT INR D-Dimer ABG pH POC ABG pCO2 POC ABG pO2 ABG pO2 ABG HCO3 ABG O2 Saturation ABG Hemoglobin ABG Sodium ABG Potassium ABG Chloride ABG Glucose Sodium Potassium Chloride Carbon Dioxide BUN Creatinine 0.3 L Glucose 111 H POC Glucose 116 H Ferritin Lactate Dehydrogenase C-Reactive Protein Total Protein Albumin 2.5 L Arterial Blood Glucose Ur Specific [place] Urine WBC (Auto) 03/14/20 03/15/20 03/15/20 16:58 04:56 04:56 WBC RBC 3.31 L Hgb 10.2 L Hct 30.2 L RDW 17.5 H Lymph % (Auto) Seg Neutrophils % Seg Neuts % (Manual) 94.0 H Lymphocytes % (Manual) 4.0 L Seg Neutrophils # Seg Neutrophils # Man 9.7 H Lymphocytes # (Manual) 0.4 L Monocytes # (Manual) PT INR D-Dimer ABG pH POC ABG pCO2 POC ABG pO2 ABG pO2 ABG HCO3 ABG O2 Saturation ABG Hemoglobin ABG Sodium ABG Potassium ABG Chloride ABG Glucose Sodium Potassium Chloride Carbon Dioxide BUN Creatinine 0.3 L Glucose 189 H POC Glucose 134 H Ferritin Lactate Dehydrogenase C-Reactive Protein Total Protein Albumin Arterial Blood Glucose Ur Specific [place] Urine WBC (Auto) 03/15/20 03/15/20 03/16/20 05:26 17:46 05:23 WBC RBC Hgb Hct RDW Lymph % (Auto) Seg Neutrophils % Seg Neuts % (Manual) Lymphocytes % (Manual) Seg Neutrophils # Seg Neutrophils # Man Lymphocytes # (Manual) Monocytes # (Manual) PT INR D-Dimer ABG pH POC ABG pCO2 POC ABG pO2 ABG pO2 ABG HCO3 ABG O2 Saturation ABG Hemoglobin ABG Sodium ABG Potassium ABG Chloride ABG Glucose Sodium Potassium Chloride Carbon Dioxide BUN Creatinine Glucose POC Glucose 159 H 110 H 149 H Ferritin Lactate Dehydrogenase C-Reactive Protein Total Protein Albumin Arterial Blood Glucose Ur Specific [place] Urine WBC (Auto) 03/16/20 03/16/20 03/16/20 12:05 20:45 23:27 WBC RBC Hgb Hct RDW Lymph % (Auto) Seg Neutrophils % Seg Neuts % (Manual) Lymphocytes % (Manual) Seg Neutrophils # Seg Neutrophils # Man Lymphocytes # (Manual) Monocytes # (Manual) PT INR D-Dimer ABG pH 7.478 H POC ABG pCO2 POC ABG pO2 ABG pO2 122.9 H ABG HCO3 26.6 H ABG O2 Saturation ABG Hemoglobin 10.1 L ABG Sodium ABG Potassium ABG Chloride ABG Glucose Sodium Potassium Chloride Carbon Dioxide BUN Creatinine Glucose POC Glucose 116 H 114 H Ferritin Lactate Dehydrogenase C-Reactive Protein Total Protein Albumin Arterial Blood Glucose Ur Specific [place] Urine WBC (Auto) 03/17/20 03/17/20 03/17/20 05:42 11:51 18:19 WBC RBC Hgb Hct RDW Lymph % (Auto) Seg Neutrophils % Seg Neuts % (Manual) Lymphocytes % (Manual) Seg Neutrophils # Seg Neutrophils # Man Lymphocytes # (Manual) Monocytes # (Manual) PT INR D-Dimer ABG pH POC ABG pCO2 POC ABG pO2 ABG pO2 ABG HCO3 ABG O2 Saturation ABG Hemoglobin ABG Sodium ABG Potassium ABG Chloride ABG Glucose Sodium Potassium Chloride Carbon Dioxide BUN Creatinine Glucose POC Glucose 160 H 113 H 115 H Ferritin Lactate Dehydrogenase C-Reactive Protein Total Protein Albumin Arterial Blood Glucose Ur Specific [place] Urine WBC (Auto) 03/17/20 03/18/20 03/18/20 23:36 04:43 05:40 WBC RBC Hgb Hct RDW Lymph % (Auto) Seg Neutrophils % Seg Neuts % (Manual) Lymphocytes % (Manual) Seg Neutrophils # Seg Neutrophils # Man Lymphocytes # (Manual) Monocytes # (Manual) PT INR D-Dimer ABG pH 7.505 H POC ABG pCO2 POC ABG pO2 132.0 H ABG pO2 ABG HCO3 ABG O2 Saturation ABG Hemoglobin 11.2 L ABG Sodium 135.4 L ABG Potassium ABG Chloride ABG Glucose 154 H Sodium Potassium Chloride Carbon Dioxide BUN Creatinine Glucose POC Glucose 108 H 152 H Ferritin Lactate Dehydrogenase C-Reactive Protein Total Protein Albumin Arterial Blood Glucose 154 H Ur Specific [place] Urine WBC (Auto) 03/18/20 03/19/20 03/19/20 23:06 05:42 08:28 WBC RBC Hgb Hct RDW Lymph % (Auto) Seg Neutrophils % Seg Neuts % (Manual) Lymphocytes % (Manual) Seg Neutrophils # Seg Neutrophils # Man Lymphocytes # (Manual) Monocytes # (Manual) PT INR D-Dimer ABG pH POC ABG pCO2 POC ABG pO2 ABG pO2 ABG HCO3 ABG O2 Saturation ABG Hemoglobin ABG Sodium ABG Potassium ABG Chloride ABG Glucose Sodium Potassium Chloride Carbon Dioxide BUN Creatinine 0.3 L Glucose 108 H POC Glucose 109 H 168 H Ferritin Lactate Dehydrogenase C-Reactive Protein Total Protein Albumin Arterial Blood Glucose Ur Specific [place] Urine WBC (Auto) Chest x-ray: other (none today) Allied health notes reviewed: nursing
--- NOTE | 2020-03-19 11:11 | Progress Note ---
Assessment and Plan Assessment and plan: --PUI; COVID-19 test negative on 03/04/2020 --acute on chronic hypoxic respiratory failure; Patient has chronic tracheostomy now on ventilatory support Continue nebulizers ,wean off ventilator as tolerated . Pulmonary critical following. --MRSA pneumonia; respiratory and contact isolation Completed vancomycin, continue Bactrim DS per ID --Bilateral pneumonia; Continue current antibiotics, follow cultures Ventilatory support, pulmonary and ID following --Severe hypokalemia; resolved Closely monitor lecture lites --Hypernatremia; resolved Gentle hydration supportive care --Sepsis secondary to bilateral pneumonia/UTI Continue current antibiotics, follow cultures, ID following --Severe malnutrition; hypoalbuminemia Supportive care, nutrition consult --DVT prophylaxis;Lovenox --Restrain the patient for agitation --Full CODE STATUS; We will closely monitor the patient and adjust the management as needed 03/05/2020 -Patient is admitted for acute on chronic respiratory failure and currently on and requiring mechanical ventilation. Continue with IV antibiotics for UTI and sepsis. COVID-19 test is done and is negative. Tub Mender consulted. Continue with the current management. 03/06/2020 -Patient is admitted for acute on chronic respiratory failure. Patient is on trach and vent. Patient is on IV cefepime and vancomycin per ID recommendation. Pulmonary consulted for vent and trach management. 03/07/2020; continue ventilatory support Wean off vent as tolerated, consults and recommendations noted and appreciated 03/08/2020; We will closely monitor the patient and adjust the management as needed Plan of care reviewed with the patient and his nurse MRSA pneumonia, vancomycin, contact isolation 03/09/2020; patient remains on ventilatory support, on IV antibiotics Wean off vent as tolerated, outplacement consultant recommendations noted and appreciated Plan of care reviewed with the patient's nurse and case management 03/10/2020; chest x-ray mild improvement, remains on ventilatory support, wean off ventilator as tolerated Contact isolation for MRSA pneumonia, continue vancomycin 03/11/2020; patient remains on ventilatory support, MRSA pneumonia on vancomycin for total 8 days and de-escalate to Bactrim DS Per ID recommendations. Contact isolation, restraint for agitation as needed 03/12/2020; we will wean off ventilator as tolerated , patient is more alert and awake today Tracheostomy on vent, on contact isolation MRSA on vancomycin, will follow consultants recommendations 03/13/2020; patient completed 8 days of vancomycin, currently on Bactrim DS, remains on ventilatory support, will wean off ventilator as tolerated We will restrain restraint patient as needed 03/14/2020; unable to wean, being off ventilator as tolerated, contact isolation for MRSA pneumonia 03/15/20. patient remains on ventilatory support, MRSA pneumonia on vancomycin for total 8 days (completed) and de-escalate to Bactrim DS Per ID recommendations. Contact isolation, restraint for agitation as needed 03/16/2020. Patient with PSV trialtidal volume 500 / with an FiO2 of 28%. T-piece trials as tolerated. Monitor off antibiotics per ID recommendations. Continue IV steroids and wean per pulmonary recommendations. 03/17/2020. Patient currently tolerating T-piece trial. Continue O2 to maintain sats greater than 92%. Continue to monitor off antibiotics. Continue IV steroids per pulmonary recommendations. 03/18/2020. Continue T-piece trials as tolerated. Continue O2 to maintain sats greater than 92%. Monitor off antibiotics per ID recommendations. Wean steroids per pulmonary. 03/19/2020. Continue T-piece trials as tolerated. Continue O2 to maintain sats greater than 92%. Monitor off antibiotics per ID recommendations. Wean steroids per pulmonary. History Interval history: No new issues Hospitalist Physical - Constitutional Vitals: Temp Pulse Resp BP Pulse Ox 98.3 F 44 L 16 111/54 100 03/19/20 03:40 03/19/20 11:00 03/19/20 11:00 03/19/20 11:00 03/19/20 11:00 General appearance: Present: mild distress, cachectic, disheveled, other (Tracheostomy, on ventilatory support) - EENT Eyes: Present: PERRL, EOM intact ENT: hearing intact, clear oral mucosa, dentition normal - Neck Neck: Present: supple, normal ROM - Respiratory Respiratory effort: normal Respiratory: bilateral: CTA - Cardiovascular Rhythm: regular Heart Sounds: Present: S1 & S2. Absent: gallop, rub - Extremities Extremities: no ischemia, No edema, Full ROM - Abdominal General gastrointestinal: soft, non-tender, non-distended, normal bowel sounds - Integumentary Integumentary: Present: clear, warm, dry - Neurologic Neurologic: CNII-XII intact, moves all extremities Results - Labs CBC & Chem 7: 03/15/20 04:56 03/19/20 08:28 Labs: Laboratory Last Values WBC 10.3 K/mm3 (4.5-11.0) 03/15/20 04:56 RBC 3.31 M/mm3 (3.65-5.03) L 03/15/20 04:56 Hgb 10.2 gm/dl (11.8-15.2) L 03/15/20 04:56 Hct 30.2 % (35.5-45.6) L 03/15/20 04:56 MCV 91 fl (84-94) 03/15/20 04:56 MCH 31 pg (28-32) 03/15/20 04:56 MCHC 34 % (32-34) 03/15/20 04:56 RDW 17.5 % (13.2-15.2) H 03/15/20 04:56 Plt Count 377 K/mm3 (140-440) 03/15/20 04:56 Lymph % (Auto) 13.7 % (13.4-35.0) 03/07/20 06:03 [place] % (Auto) [employer] R[employer] 03/14/20 07:08 Eos % (Auto) 0.5 % (0.0-4.3) 03/07/20 06:03 Baso % (Auto) 0.3 % (0.0-1.8) 03/07/20 06:03 Lymph # (Auto) 1.3 K/mm3 (1.2-5.4) 03/07/20 06:03 [place] # (Auto) 0.5 K/mm3 (0.0-0.8) 03/07/20 06:03 Eos # (Auto) 0.0 K/mm3 (0.0-0.4) 03/07/20 06:03 Baso # (Auto) 0.0 K/mm3 (0.0-0.1) 03/07/20 06:03 Add Manual Diff Complete 03/15/20 04:56 Total Counted 100 03/15/20 04:56 Seg Neutrophils % [employer] R[employer] 03/15/20 04:56 Seg Neuts % (Manual) 94.0 % (40.0-70.0) H 03/15/20 04:56 Band Neutrophils % 0 % 03/15/20 04:56 Lymphocytes % (Manual) 4.0 % (13.4-35.0) L 03/15/20 04:56 Reactive Lymphs % (Man) 0 % 03/15/20 04:56 Monocytes % (Manual) 2.0 % (0.0-7.3) 03/15/20 04:56 Eosinophils % (Manual) 0 % (0.0-4.3) 03/15/20 04:56 Basophils % (Manual) 0 % (0.0-1.8) 03/15/20 04:56 Metamyelocytes % 0 % 03/15/20 04:56 Myelocytes % 0 % 03/15/20 04:56 Promyelocytes % 0 % 03/15/20 04:56 Blast Cells % 0 % 03/15/20 04:56 Nucleated RBC % Not Reportable 03/15/20 04:56 Seg Neutrophils # 7.8 K/mm3 (1.8-7.7) H 03/07/20 06:03 Seg Neutrophils # Man 9.7 K/mm3 (1.8-7.7) H 03/15/20 04:56 Band Neutrophils # 0.0 K/mm3 03/15/20 04:56 Lymphocytes # (Manual) 0.4 K/mm3 (1.2-5.4) L 03/15/20 04:56 Abs React Lymphs (Man) 0.0 K/mm3 03/15/20 04:56 Monocytes # (Manual) 0.2 K/mm3 (0.0-0.8) 03/15/20 04:56 Eosinophils # (Manual) 0.0 K/mm3 (0.0-0.4) 03/15/20 04:56 Basophils # (Manual) 0.0 K/mm3 (0.0-0.1) 03/15/20 04:56 Metamyelocytes # 0.0 K/mm3 03/15/20 04:56 Myelocytes # 0.0 K/mm3 03/15/20 04:56 Promyelocytes # 0.0 K/mm3 03/15/20 04:56 Blast Cells # 0.0 K/mm3 03/15/20 04:56 WBC Morphology Not Reportable 03/15/20 04:56 Hypersegmented Neuts Not Reportable 03/15/20 04:56 Hyposegmented Neuts Not Reportable 03/15/20 04:56 Hypogranular Neuts Not Reportable 03/15/20 04:56 Smudge Cells Not Reportable 03/15/20 04:56 Toxic Granulation Not Reportable 03/15/20 04:56 Toxic Vacuolation Not Reportable 03/15/20 04:56 Dohle Bodies Not Reportable 03/15/20 04:56 Pelger-Huet Anomaly Not Reportable 03/15/20 04:56 Mike Rods Not Reportable 03/15/20 04:56 Platelet Estimate Consistent w auto 03/15/20 04:56 Clumped Platelets Not Reportable 03/15/20 04:56 Plt Clumps, EDTA Not Reportable 03/15/20 04:56 Large Platelets Not Reportable 03/15/20 04:56 Giant Platelets Not Reportable 03/15/20 04:56 Platelet Satelliting Not Reportable 03/15/20 04:56 Plt Morphology Comment Not Reportable 03/15/20 04:56 RBC Morphology Not Reportable 03/15/20 04:56 Dimorphic RBCs Not Reportable 03/15/20 04:56 Polychromasia Not Reportable 03/15/20 04:56 Hypochromasia Not Reportable 03/15/20 04:56 Poikilocytosis Not Reportable 03/15/20 04:56 Anisocytosis Not Reportable 03/15/20 04:56 Microcytosis Not Reportable 03/15/20 04:56 Macrocytosis Not Reportable 03/15/20 04:56 Spherocytes Not Reportable 03/15/20 04:56 Pappenheimer Bodies Not Reportable 03/15/20 04:56 Sickle Cells Not Reportable 03/15/20 04:56 Target Cells Rare 03/15/20 04:56 Tear Drop Cells Not Reportable 03/15/20 04:56 Ovalocytes Not Reportable 03/15/20 04:56 Helmet Cells Not Reportable 03/15/20 04:56 [place] Bodies Not Reportable 03/15/20 04:56 Banks Rings Not Reportable 03/15/20 04:56 Marcos Cells Not Reportable 03/15/20 04:56 Bite Cells Not Reportable 03/15/20 04:56 Crenated Cell Not Reportable 03/15/20 04:56 Elliptocytes Not Reportable 03/15/20 04:56 Acanthocytes (Spur) Not Reportable 03/15/20 04:56 Rouleaux Not Reportable 03/15/20 04:56 Hemoglobin C Crystals Not Reportable 03/15/20 04:56 Schistocytes Not Reportable 03/15/20 04:56 Malaria parasites Not Reportable 03/15/20 04:56 Branden Bodies Not Reportable 03/15/20 04:56 Hem Pathologist Commnt No 03/15/20 04:56 PT 15.9 Sec. (12.2-14.9) H 03/04/20 02:59 INR 1.29 (0.87-1.13) H 03/04/20 02:59 D-Dimer 1415.56 ng/mlDDU (0-234) H 03/03/20 22:00 ABG pH 7.505 (7.320-7.450) H 03/18/20 04:43 POC ABG pCO2 34.6 mmHg (32.0-48.0) 03/18/20 04:43 ABG pCO2 36.8 mm Hg 03/16/20 20:45 POC ABG pO2 132.0 mmHg (83-108) H 03/18/20 04:43 ABG pO2 122.9 mm Hg (80.0-90.0) H 03/16/20 20:45 POC ABG HCO3 26.7 03/18/20 04:43 ABG HCO3 26.6 mmol/L (20.0-26.0) H 03/16/20 20:45 ABG O2 Saturation 98.5 % (95.0-99.0) 03/16/20 20:45 ABG O2 Content 14.0 (0.0-44) 03/16/20 20:45 POC ABG Base Excess 3.7 03/18/20 04:43 ABG Base Excess 3.0 mmol/L (-2.0-3.0) 03/16/20 20:45 ABG Hemoglobin 11.2 (12.0-17.5) L 03/18/20 04:43 ABG Carboxyhemoglobin 1.0 % (0.0-5.0) 03/16/20 20:45 ABG Methemoglobin 0.5 % (0.0-1.5) 03/16/20 20:45 ABG Sodium 135.4 mmol/L (136.0-145.0) L 03/18/20 04:43 ABG Potassium 4.1 mmol/L (3.40-4.50) 03/18/20 04:43 ABG Chloride 103.0 mmol/L (98-107) 03/18/20 04:43 ABG Glucose 154 mg/dL (65-95) H 03/18/20 04:43 Oxyhemoglobin 97.0 % (95.0-99.0) 03/16/20 20:45 FiO2 30 03/18/20 04:43 Sodium 138 mmol/L (137-145) 03/19/20 08:28 Potassium 4.2 mmol/L (3.6-5.0) 03/19/20 08:28 Chloride 101.9 mmol/L (98-107) 03/19/20 08:28 Carbon Dioxide 29 mmol/L (22-30) 03/19/20 08:28 Anion Gap 11 mmol/L 03/19/20 08:28 BUN 18 mg/dL (9-20) 03/19/20 08:28 Creatinine 0.3 mg/dL (0.8-1.3) L 03/19/20 08:28 Estimated GFR > 60 ml/min 03/19/20 08:28 BUN/Creatinine Ratio 60 % 03/19/20 08:28 Glucose 108 mg/dL (75-100) H 03/19/20 08:28 POC Glucose 168 mg/dL (70-105) H 03/19/20 05:42 Lactic Acid 0.80 mmol/L (0.7-2.0) 03/04/20 02:59 Calcium 9.3 mg/dL (8.4-10.2) 03/19/20 08:28 Magnesium 2.00 mg/dL (1.7-2.3) 03/14/20 07:08 Ferritin 522.1 ng/mL (30.0-300.0) H 03/03/20 22:00 Total Bilirubin 0.20 mg/dL (0.1-1.2) 03/14/20 07:08 AST 20 units/L (5-40) 03/14/20 07:08 ALT 34 units/L (7-56) 03/14/20 07:08 Alkaline Phosphatase 82 units/L (35-129) 03/14/20 07:08 Lactate Dehydrogenase 240 units/L (91-180) H 03/03/20 22:00 C-Reactive Protein 17.20 mg/dL (0.00-1.30) H 03/03/20 22:00 Total Protein 7.0 g/dL (6.3-8.2) 03/14/20 07:08 Albumin 2.5 g/dL (3.9-5) L 03/14/20 07:08 Albumin/Globulin Ratio 0.6 % 03/14/20 07:08 Procalcitonin 0.31 ng/mL (<0.15) 03/03/20 22:00 Arterial Blood Glucose 154 mg/dL (65-95) H 03/18/20 04:43 Arterial Blood Ionized Calcium 4.8 mg/dL (4.6-5.3) 03/18/20 04:43 Urine Color Bing (Yellow) 03/03/20 22:15 Urine Turbidity Clear (Clear) 03/03/20 22:15 Urine pH 5.0 (5.0-7.0) 03/03/20 22:15 Ur Specific [place] 1.031 (1.003-1.030) H 03/03/20 22:15 Urine Protein 30 mg/dl mg/dL (Negative) 03/03/20 22:15 Urine Glucose (UA) Neg mg/dL (Negative) 03/03/20 22:15 Urine Ketones Neg mg/dL (Negative) 03/03/20 22:15 Urine Blood Neg (Negative) 03/03/20 22:15 Urine Nitrite Neg (Negative) 03/03/20 22:15 Urine Bilirubin Neg (Negative) 03/03/20 22:15 Urine Urobilinogen 4.0 mg/dL (<2.0) 03/03/20 22:15 Ur Leukocyte Esterase Tr (Negative) 03/03/20 22:15 Urine WBC (Auto) 8.0 /HPF (0.0-6.0) H 03/03/20 22:15 Urine RBC (Auto) 2.0 /HPF (0.0-6.0) 03/03/20 22:15 U Epithel Cells (Auto) 1.0 /HPF (0-13.0) 03/03/20 22:15 Urine Bacteria (Auto) 1+ /HPF (Negative) 03/03/20 22:15 Hyaline Casts 1 /LPF 03/03/20 22:15 Urine Mucus 1+ /HPF 03/03/20 22:15 Vancomycin Trough 9.0 ug/mL (5.0-20.0) 03/06/20 20:15 Coronavirus (PCR) Negative (Negative) 03/04/20 09:16 Sarah/IV: Voiding Method Condom Catheter IV Catheter Type [Right Upper INT / Saline Lock arm] IV Catheter Type [Left Upper Mid-line arm] IV Catheter Type [Right Peripheral IV Forearm] Active Medications - Current Medications Current Medications: Generic Name Dose Route Start Last Admin Trade Name Freq PRN Reason Stop Dose Admin Albuterol/Ipratropium 1 ampul 03/12/20 08:00 03/19/20 07:57 Duoneb *Not For Prn Use* IH Not Given TIDRT [facility] Lipase/Protease/Amylase 1 each 03/06/20 14:54 Pancreazkandice Cheney 10,500 Unit FEEDTUBE PRN PRN For Clogged Feeding Tube Arformoterol Tartrate 15 mcg 03/10/20 20:00 03/19/20 07:57 Brovana Nebu IH 15 mcg Q12HRT KESHAWN Administration Budesonide 0.5 mg 03/10/20 20:00 03/19/20 07:57 Pulmicort IH 0.5 mg Q12HRT KESHAWN Administration Enoxaparin Sodium 40 mg 03/04/20 22:00 03/18/20 22:38 Enoxaparin SUB-Q 40 mg QDAY@2200 KESHAWN Administration Protocol Famotidine 20 mg 03/09/20 11:00 03/19/20 09:48 Pepcid FEEDTUBE 20 mg BID KESHAWN Administration Fentanyl 50 mcg 03/15/20 16:00 Sublimaze IV Q10MIN PRN ANALGESIA Fentanyl 25 mcg 03/17/20 10:00 03/17/20 09:36 Duragesic TD 25 mcg Q3D KESHAWN Administration Hydrophilic Ointment 1 applic 03/03/20 22:31 03/06/20 08:19 Vaseline Lip Therapy TP 1 applic Q2HR PRN Administration Dry Lips Magnesium Hydroxide 30 ml 03/03/20 23:45 Milk Of Magnesia PO Q4H PRN Constipation Methylprednisolone Sodium Succinate 60 mg 03/14/20 22:00 03/19/20 09:48 Solu-Medrol IV 60 mg Q12HR KESHAWN Administration Morphine Sulfate 2 mg 03/03/20 23:45 03/14/20 09:09 Morphine IV 2 mg Q4H PRN Administration Pain, Moderate (4-6) Multi-Ingred Cream/Lotion/Oil/Oint 1 applic 03/03/20 22:31 Artificial Tears Ophth Oint OU Q4HR PRN Dry Eye(s) Ondansetron HCl 4 mg 03/03/20 23:45 03/05/20 16:12 Zofran IV 4 mg Q8H PRN Administration Nausea And Vomiting Quetiapine Fumarate 100 mg 03/12/20 22:00 03/19/20 09:48 Seroquel PO 100 mg BID KESHAWN Administration Simethicone 80 mg 03/11/20 09:39 03/14/20 21:46 Mylicon PO 80 mg Q6H PRN Administration Gas pain Simple Syrup 15 ml 03/06/20 14:54 Simple Syrup FEEDTUBE PRN PRN Hypoglycemia Simple Syrup 30 ml 03/06/20 14:54 Simple Syrup FEEDTUBE PRN PRN Hypoglycemia Sodium Bicarbonate 325 mg 03/06/20 14:54 Sodium Bicarbonate FEEDTUBE PRN PRN For Clogged Feeding Tube Sodium Chloride 10 ml 03/04/20 10:00 03/19/20 09:49 Sodium Chloride Flush Syringe 10 Ml IV 10 ml BID KESHAWN Administration Sodium Chloride 10 ml 03/03/20 23:45 Sodium Chloride Flush Syringe 10 Ml IV PRN PRN LINE FLUSH Nutrition/Malnutrition Assess - Dietary Evaluation Nutrition/Malnutrition Findings: Nutrition Notes Start: 03/04/20 09:15 Freq: Status: Active Protocol: Document 03/18/20 10:51 AB (Rec: 03/18/20 10:58 AB [id number]) Co-Sign 03/18/20 10:51 LM Nutrition Notes Initial or Follow up Reassessment Current Diagnosis Sepsis,Hypertension, Respiratory Failure Other Pertinent Diagnosis Bilat pneu, sacral wound, TBI Current Diet Vital AF 1.2 at 70 ml/hr Labs/Tests Reviewed Pertinent Medications Reviewed Height 6 ft 3 in Weight 63.4 kg [place] Body Weight (kg) 89.09 BMI 17.4 Weight Status Underweight Subjective/Other Information F/U TF tolerance and diarrhea. Per RN, pt is continuing to have loose BMs. 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 Yes Is Patient Ambulatory and/or Out of Bed No REE-([facility]-confined to bed) 1816.932 Kcal/Kg value to use for calculation 35 Approximate Energy Requirements Using 2219 kcal/Kg Calculation Used for Recommendations Kcal/kg Additional Notes Pro needs 1.25-2g/k-127g/ day Fluid needs 1ml/kcal Nutrition Intervention Change Diet Order: Continue current TF order Nutrition Support: Vital AF 1.2 at 70 ml/hr Flush with 125 ml q4h Kcal 2,016 Protein (gm) 126 Fluid (mL) 1,363 Goal #1 TF tolerance Goal #2 TF (at goal rate) to meet 100% energy and pro needs Goal #3 Wt maintenance and/or gain Goal #4 Wound healing Anticipated Discharge Needs: Continue TF Follow-Up By: 03/23/20 Additional Comments F/U for TF tolerance, diarrhea
[2020-03-19] MEDS: methylPREDNISolone Sod Succinate 40 MG/1 ML INJ IV SCH (21:19)
[2020-03-19] MEDS: ENOXAPARIN 40 MG/0.4 ML INJ SUB-Q SCH (21:19)
[2020-03-20] MEDS: methylPREDNISolone Sod Succinate 40 MG/1 ML INJ IV SCH (05:30)
[2020-03-20] MEDS: IPRATROPIUM/ALBUTEROL SULFATE 3 ML AMPUL.NEB IH SCH ×3 (08:02→19:23)
[2020-03-20] MEDS: ARFORMOTEROL 15 MCG/2 ML NEBU IH SCH ×2 (08:02→19:22)
[2020-03-20] MEDS: BUDESONIDE 0.5 MG/2 ML NEBU IH SCH ×2 (08:02→19:22)
--- NOTE | 2020-03-20 09:22 | Progress Note ---
Assessment and Plan Assessment and plan: --PUI; COVID-19 test negative on 03/04/2020 --acute on chronic hypoxic respiratory failure; Patient has chronic tracheostomy now on ventilatory support Continue nebulizers ,wean off ventilator as tolerated . Pulmonary critical following. --MRSA pneumonia; respiratory and contact isolation Completed vancomycin, continue Bactrim DS per ID --Bilateral pneumonia; Continue current antibiotics, follow cultures Ventilatory support, pulmonary and ID following --Severe hypokalemia; resolved Closely monitor lecture lites --Hypernatremia; resolved Gentle hydration supportive care --Sepsis secondary to bilateral pneumonia/UTI Continue current antibiotics, follow cultures, ID following --Severe malnutrition; hypoalbuminemia Supportive care, nutrition consult --DVT prophylaxis;Lovenox --Restrain the patient for agitation --Full CODE STATUS; We will closely monitor the patient and adjust the management as needed 03/05/2020 -Patient is admitted for acute on chronic respiratory failure and currently on and requiring mechanical ventilation. Continue with IV antibiotics for UTI and sepsis. COVID-19 test is done and is negative. Landscape Specialist consulted. Continue with the current management. 03/06/2020 -Patient is admitted for acute on chronic respiratory failure. Patient is on trach and vent. Patient is on IV cefepime and vancomycin per ID recommendation. Pulmonary consulted for vent and trach management. 03/07/2020; continue ventilatory support Wean off vent as tolerated, consults and recommendations noted and appreciated 03/08/2020; We will closely monitor the patient and adjust the management as needed Plan of care reviewed with the patient and his nurse MRSA pneumonia, vancomycin, contact isolation 03/09/2020; patient remains on ventilatory support, on IV antibiotics Wean off vent as tolerated, health and wellness sales consultant recommendations noted and appreciated Plan of care reviewed with the patient's nurse and case management 03/10/2020; chest x-ray mild improvement, remains on ventilatory support, wean off ventilator as tolerated Contact isolation for MRSA pneumonia, continue vancomycin 03/11/2020; patient remains on ventilatory support, MRSA pneumonia on vancomycin for total 8 days and de-escalate to Bactrim DS Per ID recommendations. Contact isolation, restraint for agitation as needed 03/12/2020; we will wean off ventilator as tolerated , patient is more alert and awake today Tracheostomy on vent, on contact isolation MRSA on vancomycin, will follow consultants recommendations 03/13/2020; patient completed 8 days of vancomycin, currently on Bactrim DS, remains on ventilatory support, will wean off ventilator as tolerated We will restrain restraint patient as needed 03/14/2020; unable to wean, being off ventilator as tolerated, contact isolation for MRSA pneumonia 03/15/20. patient remains on ventilatory support, MRSA pneumonia on vancomycin for total 8 days (completed) and de-escalate to Bactrim DS Per ID recommendations. Contact isolation, restraint for agitation as needed 03/16/2020. Patient with PSV trialtidal volume 500 / with an FiO2 of 28%. T-piece trials as tolerated. Monitor off antibiotics per ID recommendations. Continue IV steroids and wean per pulmonary recommendations. 03/17/2020. Patient currently tolerating T-piece trial. Continue O2 to maintain sats greater than 92%. Continue to monitor off antibiotics. Continue IV steroids per pulmonary recommendations. 03/18/2020. Continue T-piece trials as tolerated. Continue O2 to maintain sats greater than 92%. Monitor off antibiotics per ID recommendations. Wean steroids per pulmonary. 03/19/2020. Continue T-piece trials as tolerated. Continue O2 to maintain sats greater than 92%. Monitor off antibiotics per ID recommendations. Wean steroids per pulmonary. 03/20/2020. Patient currently tolerating T-piece/T2 with oxygen 5 L/min FiO2 20%. Follow-up repeat chest x-ray today. Continue trach care, secretion control and airway management. Continue Pulmicort and Brovana. Steroids have been tapered to 40 mg IV every 12 hours. Continue per pulmonary recommenda tions. Continue Seroquel for sedation/agitation as needed. History Interval history: No new issues Hospitalist Physical - Constitutional Vitals: Temp Pulse Resp BP Pulse Ox 97.4 F L 65 20 107/65 100 03/20/20 03:38 03/20/20 08:02 03/20/20 08:02 03/20/20 03:38 03/20/20 08:02 General appearance: Present: mild distress, cachectic, disheveled, other (Tracheostomy, on ventilatory support) - EENT Eyes: Present: PERRL, EOM intact ENT: hearing intact, clear oral mucosa, dentition normal - Neck Neck: Present: supple, normal ROM - Respiratory Respiratory effort: normal Respiratory: bilateral: CTA - Cardiovascular Rhythm: regular Heart Sounds: Present: S1 & S2. Absent: gallop, rub - Extremities Extremities: no ischemia, No edema, Full ROM - Abdominal General gastrointestinal: soft, non-tender, non-distended, normal bowel sounds - Integumentary Integumentary: Present: clear, warm, dry - Neurologic Neurologic: CNII-XII intact, moves all extremities Results - Labs CBC & Chem 7: 03/15/20 04:56 03/19/20 08:28 Labs: Laboratory Last Values WBC 10.3 K/mm3 (4.5-11.0) 03/15/20 04:56 RBC 3.31 M/mm3 (3.65-5.03) L 03/15/20 04:56 Hgb 10.2 gm/dl (11.8-15.2) L 03/15/20 04:56 Hct 30.2 % (35.5-45.6) L 03/15/20 04:56 MCV 91 fl (84-94) 03/15/20 04:56 MCH 31 pg (28-32) 03/15/20 04:56 MCHC 34 % (32-34) 03/15/20 04:56 RDW 17.5 % (13.2-15.2) H 03/15/20 04:56 Plt Count 377 K/mm3 (140-440) 03/15/20 04:56 Lymph % (Auto) 13.7 % (13.4-35.0) 03/07/20 06:03 [place] % (Auto) Home Therapy Clinician 03/14/20 07:08 Eos % (Auto) 0.5 % (0.0-4.3) 03/07/20 06:03 Baso % (Auto) 0.3 % (0.0-1.8) 03/07/20 06:03 Lymph # (Auto) 1.3 K/mm3 (1.2-5.4) 03/07/20 06:03 [place] # (Auto) 0.5 K/mm3 (0.0-0.8) 03/07/20 06:03 Eos # (Auto) 0.0 K/mm3 (0.0-0.4) 03/07/20 06:03 Baso # (Auto) 0.0 K/mm3 (0.0-0.1) 03/07/20 06:03 Add Manual Diff Complete 03/15/20 04:56 Total Counted 100 03/15/20 04:56 Seg Neutrophils % Home Therapy Clinician 03/15/20 04:56 Seg Neuts % (Manual) 94.0 % (40.0-70.0) H 03/15/20 04:56 Band Neutrophils % 0 % 03/15/20 04:56 Lymphocytes % (Manual) 4.0 % (13.4-35.0) L 03/15/20 04:56 Reactive Lymphs % (Man) 0 % 03/15/20 04:56 Monocytes % (Manual) 2.0 % (0.0-7.3) 03/15/20 04:56 Eosinophils % (Manual) 0 % (0.0-4.3) 03/15/20 04:56 Basophils % (Manual) 0 % (0.0-1.8) 03/15/20 04:56 Metamyelocytes % 0 % 03/15/20 04:56 Myelocytes % 0 % 03/15/20 04:56 Promyelocytes % 0 % 03/15/20 04:56 Blast Cells % 0 % 03/15/20 04:56 Nucleated RBC % Not Reportable 03/15/20 04:56 Seg Neutrophils # 7.8 K/mm3 (1.8-7.7) H 03/07/20 06:03 Seg Neutrophils # Man 9.7 K/mm3 (1.8-7.7) H 03/15/20 04:56 Band Neutrophils # 0.0 K/mm3 03/15/20 04:56 Lymphocytes # (Manual) 0.4 K/mm3 (1.2-5.4) L 03/15/20 04:56 Abs React Lymphs (Man) 0.0 K/mm3 03/15/20 04:56 Monocytes # (Manual) 0.2 K/mm3 (0.0-0.8) 03/15/20 04:56 Eosinophils # (Manual) 0.0 K/mm3 (0.0-0.4) 03/15/20 04:56 Basophils # (Manual) 0.0 K/mm3 (0.0-0.1) 03/15/20 04:56 Metamyelocytes # 0.0 K/mm3 03/15/20 04:56 Myelocytes # 0.0 K/mm3 03/15/20 04:56 Promyelocytes # 0.0 K/mm3 03/15/20 04:56 Blast Cells # 0.0 K/mm3 03/15/20 04:56 WBC Morphology Not Reportable 03/15/20 04:56 Hypersegmented Neuts Not Reportable 03/15/20 04:56 Hyposegmented Neuts Not Reportable 03/15/20 04:56 Hypogranular Neuts Not Reportable 03/15/20 04:56 Smudge Cells Not Reportable 03/15/20 04:56 Toxic Granulation Not Reportable 03/15/20 04:56 Toxic Vacuolation Not Reportable 03/15/20 04:56 Dohle Bodies Not Reportable 03/15/20 04:56 Pelger-Huet Anomaly Not Reportable 03/15/20 04:56 Mike Rods Not Reportable 03/15/20 04:56 Platelet Estimate Consistent w auto 03/15/20 04:56 Clumped Platelets Not Reportable 03/15/20 04:56 Plt Clumps, EDTA Not Reportable 03/15/20 04:56 Large Platelets Not Reportable 03/15/20 04:56 Giant Platelets Not Reportable 03/15/20 04:56 Platelet Satelliting Not Reportable 03/15/20 04:56 Plt Morphology Comment Not Reportable 03/15/20 04:56 RBC Morphology Not Reportable 03/15/20 04:56 Dimorphic RBCs Not Reportable 03/15/20 04:56 Polychromasia Not Reportable 03/15/20 04:56 Hypochromasia Not Reportable 03/15/20 04:56 Poikilocytosis Not Reportable 03/15/20 04:56 Anisocytosis Not Reportable 03/15/20 04:56 Microcytosis Not Reportable 03/15/20 04:56 Macrocytosis Not Reportable 03/15/20 04:56 Spherocytes Not Reportable 03/15/20 04:56 Pappenheimer Bodies Not Reportable 03/15/20 04:56 Sickle Cells Not Reportable 03/15/20 04:56 Target Cells Rare 03/15/20 04:56 Tear Drop Cells Not Reportable 03/15/20 04:56 Ovalocytes Not Reportable 03/15/20 04:56 Helmet Cells Not Reportable 03/15/20 04:56 Watkins-Jensen Bodies Not Reportable 03/15/20 04:56 Bryan Rings Not Reportable 03/15/20 04:56 [place] Cells Not Reportable 03/15/20 04:56 Bite Cells Not Reportable 03/15/20 04:56 Crenated Cell Not Reportable 03/15/20 04:56 Elliptocytes Not Reportable 03/15/20 04:56 Acanthocytes (Spur) Not Reportable 03/15/20 04:56 Rouleaux Not Reportable 03/15/20 04:56 Hemoglobin C Crystals Not Reportable 03/15/20 04:56 Schistocytes Not Reportable 03/15/20 04:56 Malaria parasites Not Reportable 03/15/20 04:56 Branden Bodies Not Reportable 03/15/20 04:56 Hem Pathologist Commnt No 03/15/20 04:56 PT 15.9 Sec. (12.2-14.9) H 03/04/20 02:59 INR 1.29 (0.87-1.13) H 03/04/20 02:59 D-Dimer 1415.56 ng/mlDDU (0-234) H 03/03/20 22:00 ABG pH 7.505 (7.320-7.450) H 03/18/20 04:43 POC ABG pCO2 34.6 mmHg (32.0-48.0) 03/18/20 04:43 ABG pCO2 36.8 mm Hg 03/16/20 20:45 POC ABG pO2 132.0 mmHg (83-108) H 03/18/20 04:43 ABG pO2 122.9 mm Hg (80.0-90.0) H 03/16/20 20:45 POC ABG HCO3 26.7 03/18/20 04:43 ABG HCO3 26.6 mmol/L (20.0-26.0) H 03/16/20 20:45 ABG O2 Saturation 98.5 % (95.0-99.0) 03/16/20 20:45 ABG O2 Content 14.0 (0.0-44) 03/16/20 20:45 POC ABG Base Excess 3.7 03/18/20 04:43 ABG Base Excess 3.0 mmol/L (-2.0-3.0) 03/16/20 20:45 ABG Hemoglobin 11.2 (12.0-17.5) L 03/18/20 04:43 ABG Carboxyhemoglobin 1.0 % (0.0-5.0) 03/16/20 20:45 ABG Methemoglobin 0.5 % (0.0-1.5) 03/16/20 20:45 ABG Sodium 135.4 mmol/L (136.0-145.0) L 03/18/20 04:43 ABG Potassium 4.1 mmol/L (3.40-4.50) 03/18/20 04:43 ABG Chloride 103.0 mmol/L (98-107) 03/18/20 04:43 ABG Glucose 154 mg/dL (65-95) H 03/18/20 04:43 Oxyhemoglobin 97.0 % (95.0-99.0) 03/16/20 20:45 FiO2 30 03/18/20 04:43 Sodium 138 mmol/L (137-145) 03/19/20 08:28 Potassium 4.2 mmol/L (3.6-5.0) 03/19/20 08:28 Chloride 101.9 mmol/L (98-107) 03/19/20 08:28 Carbon Dioxide 29 mmol/L (22-30) 03/19/20 08:28 Anion Gap 11 mmol/L 03/19/20 08:28 BUN 18 mg/dL (9-20) 03/19/20 08:28 Creatinine 0.3 mg/dL (0.8-1.3) L 03/19/20 08:28 Estimated GFR > 60 ml/min 03/19/20 08:28 BUN/Creatinine Ratio 60 % 03/19/20 08:28 Glucose 108 mg/dL (75-100) H 03/19/20 08:28 POC Glucose 171 mg/dL (70-105) H 03/20/20 05:30 Lactic Acid 0.80 mmol/L (0.7-2.0) 03/04/20 02:59 Calcium 9.3 mg/dL (8.4-10.2) 03/19/20 08:28 Magnesium 2.00 mg/dL (1.7-2.3) 03/14/20 07:08 Ferritin 522.1 ng/mL (30.0-300.0) H 03/03/20 22:00 Total Bilirubin 0.20 mg/dL (0.1-1.2) 03/14/20 07:08 AST 20 units/L (5-40) 03/14/20 07:08 ALT 34 units/L (7-56) 03/14/20 07:08 Alkaline Phosphatase 82 units/L (35-129) 03/14/20 07:08 Lactate Dehydrogenase 240 units/L (91-180) H 03/03/20 22:00 C-Reactive Protein 17.20 mg/dL (0.00-1.30) H 03/03/20 22:00 Total Protein 7.0 g/dL (6.3-8.2) 03/14/20 07:08 Albumin 2.5 g/dL (3.9-5) L 03/14/20 07:08 Albumin/Globulin Ratio 0.6 % 03/14/20 07:08 Procalcitonin 0.31 ng/mL (<0.15) 03/03/20 22:00 Arterial Blood Glucose 154 mg/dL (65-95) H 03/18/20 04:43 Arterial Blood Ionized Calcium 4.8 mg/dL (4.6-5.3) 03/18/20 04:43 Urine Color Bing (Yellow) 03/03/20 22:15 Urine Turbidity Clear (Clear) 03/03/20 22:15 Urine pH 5.0 (5.0-7.0) 03/03/20 22:15 Ur Specific [place] 1.031 (1.003-1.030) H 03/03/20 22:15 Urine Protein 30 mg/dl mg/dL (Negative) 03/03/20 22:15 Urine Glucose (UA) Neg mg/dL (Negative) 03/03/20 22:15 Urine Ketones Neg mg/dL (Negative) 03/03/20 22:15 Urine Blood Neg (Negative) 03/03/20 22:15 Urine Nitrite Neg (Negative) 03/03/20 22:15 Urine Bilirubin Neg (Negative) 03/03/20 22:15 Urine Urobilinogen 4.0 mg/dL (<2.0) 03/03/20 22:15 Ur Leukocyte Esterase Tr (Negative) 03/03/20 22:15 Urine WBC (Auto) 8.0 /HPF (0.0-6.0) H 03/03/20 22:15 Urine RBC (Auto) 2.0 /HPF (0.0-6.0) 03/03/20 22:15 U Epithel Cells (Auto) 1.0 /HPF (0-13.0) 03/03/20 22:15 Urine Bacteria (Auto) 1+ /HPF (Negative) 03/03/20 22:15 Hyaline Casts 1 /LPF 03/03/20 22:15 Urine Mucus 1+ /HPF 03/03/20 22:15 Vancomycin Trough 9.0 ug/mL (5.0-20.0) 03/06/20 20:15 Coronavirus (PCR) Negative (Negative) 03/04/20 09:16 Sarah/IV: Voiding Method Condom Catheter IV Catheter Type [Right Upper INT / Saline Lock arm] IV Catheter Type [Left Upper Mid-line arm] IV Catheter Type [Right Peripheral IV Forearm] Active Medications - Current Medications Current Medications: Generic Name Dose Route Start Last Admin Trade Name Freq PRN Reason Stop Dose Admin Albuterol/Ipratropium 1 ampul 03/12/20 08:00 03/20/20 08:02 Duoneb *Not For Prn Use* IH Not Given TIDRT [facility] Lipase/Protease/Amylase 1 each 03/06/20 14:54 Pancreazkandice Cheney 10,500 Unit FEEDTUBE PRN PRN For Clogged Feeding Tube Arformoterol Tartrate 15 mcg 03/10/20 20:00 03/20/20 08:02 Brovana Nebu IH 15 mcg Q12HRT KESHAWN Administration Budesonide 0.5 mg 03/10/20 20:00 03/20/20 08:02 Pulmicort IH 0.5 mg Q12HRT KESHAWN Administration Enoxaparin Sodium 40 mg 03/04/20 22:00 03/19/20 21:19 Enoxaparin SUB-Q 40 mg QDAY@2200 [facility] Administration Protocol Famotidine 20 mg 03/09/20 11:00 03/19/20 21:20 Pepcid FEEDTUBE 20 mg BID KESHAWN Administration Fentanyl 50 mcg 03/15/20 16:00 Sublimaze IV Q10MIN PRN ANALGESIA Fentanyl 25 mcg 03/17/20 10:00 03/17/20 09:36 Duragesic TD 25 mcg Q3D KESHAWN Administration Hydrophilic Ointment 1 applic 03/03/20 22:31 03/06/20 08:19 Vaseline Lip Therapy TP 1 applic Q2HR PRN Administration Dry Lips Magnesium Hydroxide 30 ml 03/03/20 23:45 Milk Of Magnesia PO Q4H PRN Constipation Methylprednisolone Sodium Succinate 40 mg 03/19/20 18:30 03/20/20 05:30 Methylprednisolone Sod Succinate 40 Mg/1 Ml Inj IV 40 mg Q12H KESHAWN Administration Morphine Sulfate 2 mg 03/03/20 23:45 03/14/20 09:09 Morphine IV 2 mg Q4H PRN Administration Pain, Moderate (4-6) Multi-Ingred Cream/Lotion/Oil/Oint 1 applic 03/03/20 22:31 Artificial Tears Ophth Oint OU Q4HR PRN Dry Eye(s) Ondansetron HCl 4 mg 03/03/20 23:45 03/05/20 16:12 Zofran IV 4 mg Q8H PRN Administration Nausea And Vomiting Quetiapine Fumarate 100 mg 03/12/20 22:00 03/19/20 21:20 Seroquel PO 100 mg BID KESHAWN Administration Simethicone 80 mg 03/11/20 09:39 03/14/20 21:46 Mylicon PO 80 mg Q6H PRN Administration Gas pain Simple Syrup 15 ml 03/06/20 14:54 Simple Syrup FEEDTUBE PRN PRN Hypoglycemia Simple Syrup 30 ml 03/06/20 14:54 Simple Syrup FEEDTUBE PRN PRN Hypoglycemia Sodium Bicarbonate 325 mg 03/06/20 14:54 Sodium Bicarbonate FEEDTUBE PRN PRN For Clogged Feeding Tube Sodium Chloride 10 ml 03/04/20 10:00 03/19/20 21:20 Sodium Chloride Flush Syringe 10 Ml IV 10 ml BID KESHAWN Administration Sodium Chloride 10 ml 03/03/20 23:45 Sodium Chloride Flush Syringe 10 Ml IV PRN PRN LINE FLUSH Nutrition/Malnutrition Assess - Dietary Evaluation Nutrition/Malnutrition Findings: Nutrition Notes Start: 03/04/20 09:15 Freq: Status: Active Protocol: Document 03/18/20 10:51 AB (Rec: 03/18/20 10:58 AB [id number]) Co-Sign 03/18/20 10:51 LM Nutrition Notes Initial or Follow up Reassessment Current Diagnosis Sepsis,Hypertension, Respiratory Failure Other Pertinent Diagnosis Bilat pneu, sacral wound, TBI Current Diet Vital AF 1.2 at 70 ml/hr Labs/Tests Reviewed Pertinent Medications Reviewed Height 6 ft 3 in Weight 63.4 kg [place] Body Weight (kg) 89.09 BMI 17.4 Weight Status Underweight Subjective/Other Information F/U TF tolerance and diarrhea. Per RN, pt is continuing to have loose BMs. Percent of energy/protein needs met: 91%/100% Burn Absent Trauma Absent GI Symptoms Diarrhea Current % PO Negligible Minimum of two criteria No Reduced Chief Operator Strength Measurably Reduced (severe) #2 Nutrition Diagnosis Increased nutrient needs ( specify in comment below) Comments: Protein Diagnosis Progress(for reassessment Continues documentation) #1 Nutrition Diagnosis Inadequate oral intake Diagnosis Progress(for reassessment Continues documentation) Is patient on ventilator? Yes Is Patient Ambulatory and/or Out of Bed No REE-([facility]-confined to bed) 1816.932 Kcal/Kg value to use for calculation 35 Approximate Energy Requirements Using 2219 kcal/Kg Calculation Used for Recommendations Kcal/kg Additional Notes Pro needs 1.25-2g/k-127g/ day Fluid needs 1ml/kcal Nutrition Intervention Change Diet Order: Continue current TF order Nutrition Support: Vital AF 1.2 at 70 ml/hr Flush with 125 ml q4h Kcal 2,016 Protein (gm) 126 Fluid (mL) 1,363 Goal #1 TF tolerance Goal #2 TF (at goal rate) to meet 100% energy and pro needs Goal #3 Wt maintenance and/or gain Goal #4 Wound healing Anticipated Discharge Needs: Continue TF Follow-Up By: 03/23/20 Additional Comments F/U for TF tolerance, diarrhea
--- NOTE | 2020-03-20 10:20 | XRay Report ---
CHEST 1 VIEW INDICATION / CLINICAL INFORMATION: f/u PNA. COMPARISON: 03/10/2020 FINDINGS: SUPPORT DEVICES: Tracheostomy noted in appropriate position. Gastrostomy tube over the upper abdomen in stable position. Left midline catheter tubing with its tip projected over the left axillary region . HEART / MEDIASTINUM: Stable. LUNGS / PLEURA: Minimal improvement of the patchy bibasilar pulmonary opacities since prior exam. No pneumothorax. ADDITIONAL FINDINGS: Remote trauma right-sided ribs stable since prior exam. IMPRESSION: 1. Minimally improved patchy bibasilar pulmonary opacities since prior exam dated 03/10/2020. 2. Tracheostomy tube in appropriate position. 3. Gastrostomy tube in stable position. 4. Left midline catheter tubing with its tip projected over the axillary region. Signer Name: Stanley Gómez MD Signed: 03/20/2020 10:15 AM Workstation Name: [id number]
[2020-03-20] MEDS: fentaNYL 25 MCG/HR PATCH 72HR TD SCH (11:17)
[2020-03-20] MEDS: QUEtiapine 100 MG TAB PO SCH ×2 (11:18→22:20)
[2020-03-20] MEDS: FAMOTIDINE 20 MG TAB FEEDTUBE SCH ×2 (11:18→22:20)
--- NOTE | 2020-03-20 19:45 | Progress Note ---
Assessment and Plan Patient awake, weak and emaciated. Patient is on T tube, FIO2 28% and O2 saturation running 99%. Patient afebrile. No leukocytosis. Patients chest xray done 03/19/20 reported Minimally improved patchy bibasilar pulmonary opacities since prior exam dated 03/10/2020. Tracheostomy tube in appropriate position. Gastrostomy tube in stable position. Left midline catheter tubing with its tip projected over the axillary region. Patient is on I/V solumedrol, albuterol/atrovent aerosol treatments. S/C Lovenox and famotidine. - Patient Problems (1) Respiratory failure Current Visit: Yes Status: Acute Qualifiers: Chronicity: acute Respiratory failure complication: hypoxia Qualified Cod e(s): J96.01 - Acute respiratory failure with hypoxia Plan to address problem: Patient S/P tracheostomy. Patient is on T tube, FIO2 28%. Continue I/V solumedrol. Albuterol/atrovent aerosol treatments. S/C Lovenox. Famotidine. (2) Person under investigation for COVID-19 Current Visit: Yes Status: Acute Plan to address problem: [place] virus PCR reported negative. (3) Pneumonia Current Visit: Yes Status: Acute Qualifiers: Pneumonia type: due to unspecified organism Laterality: bilateral Lung location: unspecified part of lung Qualified Code(s): J18.9 - Pneumonia, unspecified organism Plan to address problem: Patient was treated with ceftriaxone and Zithromax. (4) Hypernatremia Current Visit: Yes Status: Acute Plan to address problem: Improved. Patients recent na+ 138. (5) Sepsis Current Visit: Yes Status: Acute Qualifiers: Sepsis type: sepsis due to unspecified organism Sepsis acute organ dysfunction status: with acute organ dysfunction Severe sepsis acute organ dysfunction type: acute respiratory failure Acute respiratory failure type: with hypoxia Severe sepsis shock status: without septic shock Qualified Code(s): A41.9 - Sepsis, unspecified organism; R65.20 - Severe sepsis without septic shock; J96.01 - Acute respiratory failure with hypoxia Plan to address problem: Patient was treated with ceftriaxone and zithromax. (6) UTI (urinary tract infection) Current Visit: Yes Status: Acute Qualifiers: Urinary tract infection type: acute cystitis Hematuria presence: with hematuria Qualified Code(s): N30.01 - Acute cystitis with hematuria Plan to address problem: Patient was on ceftriaxone. Subjective Date of service: 03/20/20 Principal diagnosis: Severe Sepsis; PNA; Ac on ch hypoxemic resp failure; [id number] Interval history: Patient awake, weak and emaciated. Patient is on T tube, FIO2 28% and O2 saturation running 99%. Patient afebrile. No leukocytosis. Patients chest xray done 03/19/20 reported Minimally improved patchy bibasilar pulmonary opacities since prior exam dated 03/10/2020. Tracheostomy tube in appropriate position. Gastrostomy tube in stable position. Left midline catheter tubing with its tip projected over the axillary region. Patient is on I/V solumedrol, albuterol/atrovent aerosol treatments. S/C Lovenox and famotidine. Objective Vital Signs - 12hr 03/20/20 03/20/20 03/20/20 08:00 08:02 10:00 Pulse Rate 51 L Pulse Rate [ 65 Anterior Bilateral Throughout] Respiratory 20 Rate [Anterior Bilateral Throughout] O2 Sat by Pulse 100 Oximetry O2 Sat by Pulse 100 Oximetry [ Assessment] 03/20/20 03/20/20 03/20/20 14:34 19:26 19:27 Pulse Rate Pulse Rate [ 67 64 Anterior Bilateral Throughout] Respiratory 18 18 Rate [Anterior Bilateral Throughout] O2 Sat by Pulse 99 Oximetry O2 Sat by Pulse Oximetry [ Assessment] Constitutional: no acute distress, alert, other (elderly thin male with mildly increased respiratory effort at rest) Eyes: non-icteric ENT: oropharynx moist, other (+ midline [place]iley tracheostomy) Neck: supple, no lymphadenopathy, no JVD Effort: mildly labored Ascultation: Bilateral: diminished breath sounds, rhonchi (scant), other (prolonged exp phase) Percussion: Bilateral: not dull Cardiovascular: regular rate and rhythm, other (S1,S2) Gastrointestinal: normoactive bowel sounds, soft, non-tender, non-distended, other (PEG in place) Integumentary: normal Extremities: no cyanosis, no edema, pulses normal Neurologic: pupils equal and round, CN II-XII normal, unable to assess, other (RUExt weakness) Psychiatric: anxious CBC and BMP: 03/15/20 04:56 03/19/20 08:28 ABG, PT/INR, D-dimer: ABG ABG pH 7.505 (7.320-7.450) H 03/18/20 04:43 POC ABG pCO2 34.6 mmHg (32.0-48.0) 03/18/20 04:43 ABG pCO2 36.8 mm Hg 03/16/20 20:45 POC ABG pO2 132.0 mmHg (83-108) H 03/18/20 04:43 ABG pO2 122.9 mm Hg (80.0-90.0) H 03/16/20 20:45 POC ABG HCO3 26.7 03/18/20 04:43 ABG O2 Saturation 98.5 % (95.0-99.0) 03/16/20 20:45 PT/INR, D-dimer PT 15.9 Sec. (12.2-14.9) H 03/04/20 02:59 INR 1.29 (0.87-1.13) H 03/04/20 02:59 D-Dimer 1415.56 ng/mlDDU (0-234) H 03/03/20 22:00 Abnormal lab findings: Abnormal Labs 03/03/20 03/03/20 03/03/20 01:10 21:51 21:51 WBC 15.5 H RBC Hgb Hct 35.3 L RDW 17.9 H Lymph % (Auto) 11.6 L Seg Neutrophils % 83.7 H Seg Neuts % (Manual) Lymphocytes % (Manual) Seg Neutrophils # 13.0 H Seg Neutrophils # Man Lymphocytes # (Manual) Monocytes # (Manual) PT INR D-Dimer ABG pH POC ABG pCO2 POC ABG pO2 ABG pO2 173.4 H ABG HCO3 26.7 H ABG O2 Saturation 99.1 H ABG Hemoglobin 11.6 L ABG Sodium ABG Potassium ABG Chloride ABG Glucose Sodium 151 H Potassium Chloride 114.4 H Carbon Dioxide BUN 29 H Creatinine 0.6 L Glucose 116 H POC Glucose Ferritin Lactate Dehydrogenase C-Reactive Protein Total Protein 8.9 H Albumin 2.8 L Arterial Blood Glucose Ur Specific [place] Urine WBC (Auto) 03/03/20 03/03/20 03/03/20 22:00 22:00 22:00 WBC RBC Hgb Hct RDW Lymph % (Auto) Seg Neutrophils % Seg Neuts % (Manual) Lymphocytes % (Manual) Seg Neutrophils # Seg Neutrophils # Man Lymphocytes # (Manual) Monocytes # (Manual) PT INR D-Dimer 1415.56 H ABG pH POC ABG pCO2 POC ABG pO2 ABG pO2 ABG HCO3 ABG O2 Saturation ABG Hemoglobin ABG Sodium ABG Potassium ABG Chloride ABG Glucose Sodium Potassium Chloride Carbon Dioxide BUN Creatinine Glucose 106 H POC Glucose Ferritin 522.1 H Lactate Dehydrogenase 240 H C-Reactive Protein 17.20 H Total Protein Albumin Arterial Blood Glucose Ur Specific [place] Urine WBC (Auto) 03/03/20 03/04/20 03/04/20 22:15 02:59 02:59 WBC 15.2 H RBC 3.56 L Hgb 10.9 L Hct 33.4 L RDW 17.5 H Lymph % (Auto) Seg Neutrophils % Seg Neuts % (Manual) 93.0 H Lymphocytes % (Manual) 5.0 L Seg Neutrophils # Seg Neutrophils # Man 14.1 H Lymphocytes # (Manual) 0.8 L Monocytes # (Manual) PT 15.9 H INR 1.29 H D-Dimer ABG pH POC ABG pCO2 POC ABG pO2 ABG pO2 ABG HCO3 ABG O2 Saturation ABG Hemoglobin ABG Sodium ABG Potassium ABG Chloride ABG Glucose Sodium Potassium Chloride Carbon Dioxide BUN Creatinine Glucose POC Glucose Ferritin Lactate Dehydrogenase C-Reactive Protein Total Protein Albumin Arterial Blood Glucose Ur Specific [place] 1.031 H Urine WBC (Auto) 8.0 H 03/04/20 03/04/20 03/05/20 02:59 16:16 04:00 WBC RBC Hgb Hct RDW Lymph % (Auto) Seg Neutrophils % Seg Neuts % (Manual) Lymphocytes % (Manual) Seg Neutrophils # Seg Neutrophils # Man Lymphocytes # (Manual) Monocytes # (Manual) PT INR D-Dimer ABG pH 7.451 H 7.498 H POC ABG pCO2 POC ABG pO2 ABG pO2 102.9 H 122.7 H ABG HCO3 ABG O2 Saturation ABG Hemoglobin 12.7 L 10.2 L ABG Sodium ABG Potassium ABG Chloride ABG Glucose Sodium 152 H Potassium Chloride 116.9 H Carbon Dioxide BUN 27 H Creatinine 0.4 L Glucose 127 H POC Glucose Ferritin Lactate Dehydrogenase C-Reactive Protein Total Protein Albumin Arterial Blood Glucose Ur Specific [place] Urine WBC (Auto) 03/05/20 03/05/20 03/05/20 05:32 05:32 18:05 WBC 17.4 H RBC 3.35 L Hgb 10.3 L Hct 31.4 L RDW 17.2 H Lymph % (Auto) 10.9 L Seg Neutrophils % 85.3 H Seg Neuts % (Manual) Lymphocytes % (Manual) Seg Neutrophils # 14.8 H Seg Neutrophils # Man Lymphocytes # (Manual) Monocytes # (Manual) PT INR D-Dimer ABG pH POC ABG pCO2 POC ABG pO2 ABG pO2 ABG HCO3 ABG O2 Saturation ABG Hemoglobin ABG Sodium ABG Potassium ABG Chloride ABG Glucose Sodium 150 H 146 H Potassium 3.4 L Chloride 115.0 H 113.7 H Carbon Dioxide 20 L BUN 29 H Creatinine 0.5 L 0.3 L Glucose POC Glucose Ferritin Lactate Dehydrogenase C-Reactive Protein Total Protein Albumin Arterial Blood Glucose Ur Specific [place] Urine WBC (Auto) 03/06/20 03/06/20 03/06/20 04:16 04:16 05:50 WBC 11.2 H RBC 3.05 L Hgb 9.2 L Hct 28.2 L RDW 16.8 H Lymph % (Auto) Seg Neutrophils % 80.0 H Seg Neuts % (Manual) Lymphocytes % (Manual) Seg Neutrophils # 9.0 H Seg Neutrophils # Man Lymphocytes # (Manual) Monocytes # (Manual) PT INR D-Dimer ABG pH POC ABG pCO2 POC ABG pO2 ABG pO2 194.8 H ABG HCO3 ABG O2 Saturation 99.3 H ABG Hemoglobin 9.2 L ABG Sodium ABG Potassium ABG Chloride ABG Glucose Sodium 146 H Potassium 3.1 L Chloride 111.3 H Carbon Dioxide BUN Creatinine 0.4 L Glucose POC Glucose Ferritin Lactate Dehydrogenase C-Reactive Protein Total Protein Albumin Arterial Blood Glucose Ur Specific [place] Urine WBC (Auto) 03/07/20 03/07/20 03/07/20 02:54 05:47 06:03 WBC RBC 3.21 L Hgb 9.8 L Hct 28.6 L RDW 16.6 H Lymph % (Auto) Seg Neutrophils % 80.1 H Seg Neuts % (Manual) Lymphocytes % (Manual) Seg Neutrophils # 7.8 H Seg Neutrophils # Man Lymphocytes # (Manual) Monocytes # (Manual) PT INR D-Dimer ABG pH 7.504 H POC ABG pCO2 30.5 L POC ABG pO2 ABG pO2 ABG HCO3 ABG O2 Saturation ABG Hemoglobin 10.4 L ABG Sodium ABG Potassium 2.7 L ABG Chloride 109.0 H ABG Glucose Sodium Potassium Chloride Carbon Dioxide BUN Creatinine Glucose POC Glucose 126 H Ferritin Lactate Dehydrogenase C-Reactive Protein Total Protein Albumin Arterial Blood Glucose Ur Specific [place] Urine WBC (Auto) 03/07/20 03/07/20 03/07/20 06:03 17:22 17:25 WBC RBC Hgb Hct RDW Lymph % (Auto) Seg Neutrophils % Seg Neuts % (Manual) Lymphocytes % (Manual) Seg Neutrophils # Seg Neutrophils # Man Lymphocytes # (Manual) Monocytes # (Manual) PT INR D-Dimer ABG pH POC ABG pCO2 POC ABG pO2 ABG pO2 ABG HCO3 ABG O2 Saturation ABG Hemoglobin ABG Sodium ABG Potassium ABG Chloride ABG Glucose Sodium Potassium 2.7 L* Chloride 107.6 H Carbon Dioxide 21 L BUN 8 L Creatinine 0.3 L Glucose 129 H POC Glucose 119 H 125 H Ferritin Lactate Dehydrogenase C-Reactive Protein Total Protein Albumin Arterial Blood Glucose Ur Specific [place] Urine WBC (Auto) 03/07/20 03/08/20 03/08/20 23:30 04:30 16:56 WBC RBC Hgb Hct RDW Lymph % (Auto) Seg Neutrophils % Seg Neuts % (Manual) Lymphocytes % (Manual) Seg Neutrophils # Seg Neutrophils # Man Lymphocytes # (Manual) Monocytes # (Manual) PT INR D-Dimer ABG pH 7.513 H POC ABG pCO2 POC ABG pO2 ABG pO2 170.6 H ABG HCO3 ABG O2 Saturation 99.2 H ABG Hemoglobin 8.8 L ABG Sodium ABG Potassium ABG Chloride ABG Glucose Sodium Potassium Chloride Carbon Dioxide BUN Creatinine Glucose POC Glucose 107 H 108 H Ferritin Lactate Dehydrogenase C-Reactive Protein Total Protein Albumin Arterial Blood Glucose Ur Specific [place] Urine WBC (Auto) 03/08/20 03/09/20 03/09/20 21:07 04:17 11:08 WBC RBC Hgb Hct RDW Lymph % (Auto) Seg Neutrophils % Seg Neuts % (Manual) Lymphocytes % (Manual) Seg Neutrophils # Seg Neutrophils # Man Lymphocytes # (Manual) Monocytes # (Manual) PT INR D-Dimer ABG pH 7.498 H POC ABG pCO2 POC ABG pO2 125.5 H ABG pO2 ABG HCO3 ABG O2 Saturation ABG Hemoglobin ABG Sodium ABG Potassium ABG Chloride 109.0 H ABG Glucose 103 H Sodium Potassium Chloride 109.4 H Carbon Dioxide BUN 6 L Creatinine 0.3 L Glucose 121 H POC Glucose 123 H Ferritin Lactate Dehydrogenase C-Reactive Protein Total Protein Albumin 2.8 L Arterial Blood Glucose 103 H Ur Specific [place] Urine WBC (Auto) 03/10/20 03/10/20 03/10/20 04:46 08:10 08:10 WBC RBC Hgb 9.5 L Hct 28.6 L RDW Lymph % (Auto) Seg Neutrophils % Seg Neuts % (Manual) Lymphocytes % (Manual) Seg Neutrophils # Seg Neutrophils # Man Lymphocytes # (Manual) Monocytes # (Manual) PT INR D-Dimer ABG pH 7.533 H POC ABG pCO2 POC ABG pO2 128.2 H ABG pO2 ABG HCO3 ABG O2 Saturation ABG Hemoglobin 10.0 L ABG Sodium ABG Potassium ABG Chloride ABG Glucose 110 H Sodium Potassium Chloride Carbon Dioxide BUN 5 L Creatinine 0.2 L Glucose POC Glucose Ferritin Lactate Dehydrogenase C-Reactive Protein Total Protein Albumin Arterial Blood Glucose 110 H Ur Specific [place] Urine WBC (Auto) 03/10/20 03/10/20 03/11/20 17:22 23:24 05:07 WBC RBC Hgb Hct RDW Lymph % (Auto) Seg Neutrophils % Seg Neuts % (Manual) Lymphocytes % (Manual) Seg Neutrophils # Seg Neutrophils # Man Lymphocytes # (Manual) Monocytes # (Manual) PT INR D-Dimer ABG pH POC ABG pCO2 POC ABG pO2 ABG pO2 ABG HCO3 ABG O2 Saturation ABG Hemoglobin ABG Sodium ABG Potassium ABG Chloride ABG Glucose Sodium Potassium Chloride Carbon Dioxide BUN Creatinine Glucose POC Glucose 108 H 189 H 217 H Ferritin Lactate Dehydrogenase C-Reactive Protein Total Protein Albumin Arterial Blood Glucose Ur Specific [place] Urine WBC (Auto) 03/11/20 03/11/20 03/12/20 11:28 23:25 05:14 WBC RBC Hgb Hct RDW Lymph % (Auto) Seg Neutrophils % Seg Neuts % (Manual) Lymphocytes % (Manual) Seg Neutrophils # Seg Neutrophils # Man Lymphocytes # (Manual) Monocytes # (Manual) PT INR D-Dimer ABG pH POC ABG pCO2 POC ABG pO2 ABG pO2 ABG HCO3 ABG O2 Saturation ABG Hemoglobin ABG Sodium ABG Potassium ABG Chloride ABG Glucose Sodium Potassium Chloride Carbon Dioxide BUN Creatinine Glucose POC Glucose 212 H 152 H 193 H Ferritin Lactate Dehydrogenase C-Reactive Protein Total Protein Albumin Arterial Blood Glucose Ur Specific [place] Urine WBC (Auto) 03/12/20 03/12/20 03/12/20 11:58 17:11 23:27 WBC RBC Hgb Hct RDW Lymph % (Auto) Seg Neutrophils % Seg Neuts % (Manual) Lymphocytes % (Manual) Seg Neutrophils # Seg Neutrophils # Man Lymphocytes # (Manual) Monocytes # (Manual) PT INR D-Dimer ABG pH POC ABG pCO2 POC ABG pO2 ABG pO2 ABG HCO3 ABG O2 Saturation ABG Hemoglobin ABG Sodium ABG Potassium ABG Chloride ABG Glucose Sodium Potassium Chloride Carbon Dioxide BUN Creatinine Glucose POC Glucose 142 H 141 H 175 H Ferritin Lactate Dehydrogenase C-Reactive Protein Total Protein Albumin Arterial Blood Glucose Ur Specific [place] Urine WBC (Auto) 03/13/20 03/13/20 03/13/20 05:33 12:04 23:20 WBC RBC Hgb Hct RDW Lymph % (Auto) Seg Neutrophils % Seg Neuts % (Manual) Lymphocytes % (Manual) Seg Neutrophils # Seg Neutrophils # Man Lymphocytes # (Manual) Monocytes # (Manual) PT INR D-Dimer ABG pH POC ABG pCO2 POC ABG pO2 ABG pO2 ABG HCO3 ABG O2 Saturation ABG Hemoglobin ABG Sodium ABG Potassium ABG Chloride ABG Glucose Sodium Potassium Chloride Carbon Dioxide BUN Creatinine Glucose POC Glucose 184 H 182 H 132 H Ferritin Lactate Dehydrogenase C-Reactive Protein Total Protein Albumin Arterial Blood Glucose Ur Specific [place] Urine WBC (Auto) 03/14/20 03/14/20 03/14/20 05:16 07:08 07:08 WBC 14.7 H RBC 3.30 L Hgb 9.8 L Hct 30.3 L RDW 17.3 H Lymph % (Auto) Seg Neutrophils % Seg Neuts % (Manual) 87.0 H Lymphocytes % (Manual) 7.0 L Seg Neutrophils # Seg Neutrophils # Man 12.8 H Lymphocytes # (Manual) 1.0 L Monocytes # (Manual) 0.9 H PT INR D-Dimer ABG pH POC ABG pCO2 POC ABG pO2 ABG pO2 ABG HCO3 ABG O2 Saturation ABG Hemoglobin ABG Sodium ABG Potassium ABG Chloride ABG Glucose Sodium Potassium Chloride Carbon Dioxide BUN Creatinine 0.3 L Glucose 111 H POC Glucose 116 H Ferritin Lactate Dehydrogenase C-Reactive Protein Total Protein Albumin 2.5 L Arterial Blood Glucose Ur Specific [place] Urine WBC (Auto) 03/14/20 03/15/20 03/15/20 16:58 04:56 04:56 WBC RBC 3.31 L Hgb 10.2 L Hct 30.2 L RDW 17.5 H Lymph % (Auto) Seg Neutrophils % Seg Neuts % (Manual) 94.0 H Lymphocytes % (Manual) 4.0 L Seg Neutrophils # Seg Neutrophils # Man 9.7 H Lymphocytes # (Manual) 0.4 L Monocytes # (Manual) PT INR D-Dimer ABG pH POC ABG pCO2 POC ABG pO2 ABG pO2 ABG HCO3 ABG O2 Saturation ABG Hemoglobin ABG Sodium ABG Potassium ABG Chloride ABG Glucose Sodium Potassium Chloride Carbon Dioxide BUN Creatinine 0.3 L Glucose 189 H POC Glucose 134 H Ferritin Lactate Dehydrogenase C-Reactive Protein Total Protein Albumin Arterial Blood Glucose Ur Specific [place] Urine WBC (Auto) 03/15/20 03/15/20 03/16/20 05:26 17:46 05:23 WBC RBC Hgb Hct RDW Lymph % (Auto) Seg Neutrophils % Seg Neuts % (Manual) Lymphocytes % (Manual) Seg Neutrophils # Seg Neutrophils # Man Lymphocytes # (Manual) Monocytes # (Manual) PT INR D-Dimer ABG pH POC ABG pCO2 POC ABG pO2 ABG pO2 ABG HCO3 ABG O2 Saturation ABG Hemoglobin ABG Sodium ABG Potassium ABG Chloride ABG Glucose Sodium Potassium Chloride Carbon Dioxide BUN Creatinine Glucose POC Glucose 159 H 110 H 149 H Ferritin Lactate Dehydrogenase C-Reactive Protein Total Protein Albumin Arterial Blood Glucose Ur Specific [place] Urine WBC (Auto) 03/16/20 03/16/20 03/16/20 12:05 20:45 23:27 WBC RBC Hgb Hct RDW Lymph % (Auto) Seg Neutrophils % Seg Neuts % (Manual) Lymphocytes % (Manual) Seg Neutrophils # Seg Neutrophils # Man Lymphocytes # (Manual) Monocytes # (Manual) PT INR D-Dimer ABG pH 7.478 H POC ABG pCO2 POC ABG pO2 ABG pO2 122.9 H ABG HCO3 26.6 H ABG O2 Saturation ABG Hemoglobin 10.1 L ABG Sodium ABG Potassium ABG Chloride ABG Glucose Sodium Potassium Chloride Carbon Dioxide BUN Creatinine Glucose POC Glucose 116 H 114 H Ferritin Lactate Dehydrogenase C-Reactive Protein Total Protein Albumin Arterial Blood Glucose Ur Specific [place] Urine WBC (Auto) 03/17/20 03/17/2020 05:42 11:51 18:19 WBC RBC Hgb Hct RDW Lymph % (Auto) Seg Neutrophils % Seg Neuts % (Manual) Lymphocytes % (Manual) Seg Neutrophils # Seg Neutrophils # Man Lymphocytes # (Manual) Monocytes # (Manual) PT INR D-Dimer ABG pH POC ABG pCO2 POC ABG pO2 ABG pO2 ABG HCO3 ABG O2 Saturation ABG Hemoglobin ABG Sodium ABG Potassium ABG Chloride ABG Glucose Sodium Potassium Chloride Carbon Dioxide BUN Creatinine Glucose POC Glucose 160 H 113 H 115 H Ferritin Lactate Dehydrogenase C-Reactive Protein Total Protein Albumin Arterial Blood Glucose Ur Specific [place] Urine WBC (Auto) 03/17/20 03/18/20 03/18/20 23:36 04:43 05:40 WBC RBC Hgb Hct RDW Lymph % (Auto) Seg Neutrophils % Seg Neuts % (Manual) Lymphocytes % (Manual) Seg Neutrophils # Seg Neutrophils # Man Lymphocytes # (Manual) Monocytes # (Manual) PT INR D-Dimer ABG pH 7.505 H POC ABG pCO2 POC ABG pO2 132.0 H ABG pO2 ABG HCO3 ABG O2 Saturation ABG Hemoglobin 11.2 L ABG Sodium 135.4 L ABG Potassium ABG Chloride ABG Glucose 154 H Sodium Potassium Chloride Carbon Dioxide BUN Creatinine Glucose POC Glucose 108 H 152 H Ferritin Lactate Dehydrogenase C-Reactive Protein Total Protein Albumin Arterial Blood Glucose 154 H Ur Specific [place] Urine WBC (Auto) 03/18/20 03/19/20 03/19/20 23:06 05:42 08:28 WBC RBC Hgb Hct RDW Lymph % (Auto) Seg Neutrophils % Seg Neuts % (Manual) Lymphocytes % (Manual) Seg Neutrophils # Seg Neutrophils # Man Lymphocytes # (Manual) Monocytes # (Manual) PT INR D-Dimer ABG pH POC ABG pCO2 POC ABG pO2 ABG pO2 ABG HCO3 ABG O2 Saturation ABG Hemoglobin ABG Sodium ABG Potassium ABG Chloride ABG Glucose Sodium Potassium Chloride Carbon Dioxide BUN Creatinine 0.3 L Glucose 108 H POC Glucose 109 H 168 H Ferritin Lactate Dehydrogenase C-Reactive Protein Total Protein Albumin Arterial Blood Glucose Ur Specific [place] Urine WBC (Auto) 03/19/20 03/20/20 03/20/20 23:29 05:30 11:42 WBC RBC Hgb Hct RDW Lymph % (Auto) Seg Neutrophils % Seg Neuts % (Manual) Lymphocytes % (Manual) Seg Neutrophils # Seg Neutrophils # Man Lymphocytes # (Manual) Monocytes # (Manual) PT INR D-Dimer ABG pH POC ABG pCO2 POC ABG pO2 ABG pO2 ABG HCO3 ABG O2 Saturation ABG Hemoglobin ABG Sodium ABG Potassium ABG Chloride ABG Glucose Sodium Potassium Chloride Carbon Dioxide BUN Creatinine Glucose POC Glucose 117 H 171 H 113 H Ferritin Lactate Dehydrogenase C-Reactive Protein Total Protein Albumin Arterial Blood Glucose Ur Specific [place] Urine WBC (Auto) Chest x-ray: report reviewed, image reviewed Additional Studies: CHEST 1 VIEW 03/19/20 INDICATION / CLINICAL INFORMATION: f/u PNA. COMPARISON: 03/10/2020 FINDINGS: SUPPORT DEVICES: Tracheostomy noted in appropriate position. Gastrostomy tube over the upper abdomen in stable position. Left midline catheter tubing with its tip projected over the left axillary region. HEART / MEDIASTINUM: Stable. LUNGS / PLEURA: Minimal improvement of the patchy bibasilar pulmonary opacities since prior exam. No pneumothorax. ADDITIONAL FINDINGS: Remote trauma right-sided ribs stable since prior exam. IMPRESSION: 1. Minimally improved patchy bibasilar pulmonary opacities since prior exam dated 03/10/2020. 2. Tracheostomy tube in appropriate position. 3. Gastrostomy tube in stable position. 4. Left midline catheter tubing with its tip projected over the axillary region. Allied health notes reviewed: nursing
[2020-03-20] MEDS: ENOXAPARIN 40 MG/0.4 ML INJ SUB-Q SCH (22:20)
[2020-03-21 05:43] LABS: Eosinophils % (Auto) 0.2 % (0.0-4.3); Hematocrit 34.5 % (35.5-45.6); Hemoglobin 11.5 gm/dl (11.8-15.2); Lymphocytes # (Auto) 2.9 K/mm3 (1.2-5.4); Lymphocytes % (Auto) 37.4 % (13.4-35.0); Mean Corpuscular HGB Conc 33 % (32-34); Mean Corpuscular Volume 91 fl (84-94); Monocytes # (Auto) 0.7 K/mm3 (0.0-0.8); Monocytes % (Auto) 8.7 % (0.0-7.3); Platelet Count 302 K/mm3 (140-440); Red Cell Distribution Width 17.6 % (13.2-15.2)
[2020-03-21 05:59] LABS: Blood Urea Nitrogen 22 mg/dL (9-20); Calcium 8.8 mg/dL (8.4-10.2); Hemolysis Index 5
[2020-03-21 06:15] LABS: BUN/Creatinine Ratio 110
[2020-03-21] MEDS: BUDESONIDE 0.5 MG/2 ML NEBU IH SCH ×2 (08:43→19:42)
[2020-03-21] MEDS: IPRATROPIUM/ALBUTEROL SULFATE 3 ML AMPUL.NEB IH SCH ×3 (08:44→19:45)
[2020-03-21] MEDS: ARFORMOTEROL 15 MCG/2 ML NEBU IH SCH ×2 (08:44→19:42)
--- NOTE | 2020-03-21 08:50 | Progress Note ---
Assessment and Plan Assessment and plan: --PUI; COVID-19 test negative on 03/04/2020 --acute on chronic hypoxic respiratory failure; Patient has chronic tracheostomy now on ventilatory support Continue nebulizers ,wean off ventilator as tolerated . Pulmonary critical following. --MRSA pneumonia; respiratory and contact isolation Completed vancomycin, continue Bactrim DS per ID --Bilateral pneumonia; Continue current antibiotics, follow cultures Ventilatory support, pulmonary and ID following --Severe hypokalemia; resolved Closely monitor lecture lites --Hypernatremia; resolved Gentle hydration supportive care --Sepsis secondary to bilateral pneumonia/UTI Continue current antibiotics, follow cultures, ID following --Severe malnutrition; hypoalbuminemia Supportive care, nutrition consult --DVT prophylaxis;Lovenox --Restrain the patient for agitation --Full CODE STATUS; We will closely monitor the patient and adjust the management as needed 03/05/2020 -Patient is admitted for acute on chronic respiratory failure and currently on and requiring mechanical ventilation. Continue with IV antibiotics for UTI and sepsis. COVID-19 test is done and is negative. [employer] consulted. Continue with the current management. 03/06/2020 -Patient is admitted for acute on chronic respiratory failure. Patient is on trach and vent. Patient is on IV cefepime and vancomycin per ID recommendation. Pulmonary consulted for vent and trach management. 03/07/2020; continue ventilatory support Wean off vent as tolerated, consults and recommendations noted and appreciated 03/08/2020; We will closely monitor the patient and adjust the management as needed Plan of care reviewed with the patient and his nurse MRSA pneumonia, vancomycin, contact isolation 03/09/2020; patient remains on ventilatory support, on IV antibiotics Wean off vent as tolerated, health consultant recommendations noted and appreciated Plan of care reviewed with the patient's nurse and case management 03/10/2020; chest x-ray mild improvement, remains on ventilatory support, wean off ventilator as tolerated Contact isolation for MRSA pneumonia, continue vancomycin 03/11/2020; patient remains on ventilatory support, MRSA pneumonia on vancomycin for total 8 days and de-escalate to Bactrim DS Per ID recommendations. Contact isolation, restraint for agitation as needed 03/12/2020; we will wean off ventilator as tolerated , patient is more alert and awake today Tracheostomy on vent, on contact isolation MRSA on vancomycin, will follow consultants recommendations 03/13/2020; patient completed 8 days of vancomycin, currently on Bactrim DS, remains on ventilatory support, will wean off ventilator as tolerated We will restrain restraint patient as needed 03/14/2020; unable to wean, being off ventilator as tolerated, contact isolation for MRSA pneumonia 03/15/20. patient remains on ventilatory support, MRSA pneumonia on vancomycin for total 8 days (completed) and de-escalate to Bactrim DS Per ID recommendations. Contact isolation, restraint for agitation as needed 03/16/2020. Patient with PSV trialtidal volume 500 / with an FiO2 of 28%. T-piece trials as tolerated. Monitor off antibiotics per ID recommendations. Continue IV steroids and wean per pulmonary recommendations. 03/17/2020. Patient currently tolerating T-piece trial. Continue O2 to maintain sats greater than 92%. Continue to monitor off antibiotics. Continue IV steroids per pulmonary recommendations. 03/18/2020. Continue T-piece trials as tolerated. Continue O2 to maintain sats greater than 92%. Monitor off antibiotics per ID recommendations. Wean steroids per pulmonary. 03/19/2020. Continue T-piece trials as tolerated. Continue O2 to maintain sats greater than 92%. Monitor off antibiotics per ID recommendations. Wean steroids per pulmonary. 03/20/2020. Patient currently tolerating T-piece with oxygen 5 L/min FiO2 28%. Follow-up repeat chest x-ray today. Continue trach care, secretion control and airway management. Continue Pulmicort and Brovana. Steroids have been tapered to 40 mg IV every 12 hours. Continue per pulmonary recommendations. Continue Seroquel for sedation/agitation as needed. 03/21/2020. Patient currently tolerating T-piece/T-tube with oxygen 5 L/min FiO2 28%. Repeat chest x-ray showed improvement in the bibasilar pulmonary opacities. Continue trach care, secretion control and airway management. Continue Pulmicort and Brovana. Steroids have been tapered to 40 mg IV every 12 hours. Continue per pulmonary recommendations. Continue Seroquel for sedation/agitation as needed. Continue tube feedings via G-tube with aspiration precautions. Antibiotics completed for MRSA pneumonia per ID. History Interval history: No new issues Hospitalist Physical - Constitutional Vitals: Temp Pulse Resp BP Pulse Ox 98.4 F 53 L 16 118/67 100 03/21/20 04:16 03/21/20 04:16 03/21/20 04:16 03/21/20 04:16 03/21/20 04:16 General appearance: Present: no acute distress, cachectic, disheveled, other (Tracheostomy, on ventilatory support) - EENT Eyes: Present: PERRL, EOM intact ENT: hearing intact, clear oral mucosa, dentition normal - Neck Neck: Present: supple, normal ROM - Respiratory Respiratory effort: normal Respiratory: bilateral: CTA - Cardiovascular Rhythm: regular Heart Sounds: Present: S1 & S2. Absent: gallop, rub - Extremities Extremities: no ischemia, No edema, Full ROM - Abdominal General gastrointestinal: soft, non-tender, non-distended, normal bowel sounds - Integumentary Integumentary: Present: clear, warm, dry - Neurologic Neurologic: CNII-XII intact, moves all extremities Results - Labs CBC & Chem 7: 03/21/20 04:34 03/21/20 04:34 Labs: Laboratory Last Values WBC 7.7 K/mm3 (4.5-11.0) 03/21/20 04:34 RBC 3.80 M/mm3 (3.65-5.03) 03/21/20 04:34 Hgb 11.5 gm/dl (11.8-15.2) L 03/21/20 04:34 Hct 34.5 % (35.5-45.6) L 03/21/20 04:34 MCV 91 fl (84-94) 03/21/20 04:34 MCH 30 pg (28-32) 03/21/20 04:34 MCHC 33 % (32-34) 03/21/20 04:34 RDW 17.6 % (13.2-15.2) H 03/21/20 04:34 Plt Count 302 K/mm3 (140-440) 03/21/20 04:34 Lymph % (Auto) 37.4 % (13.4-35.0) H 03/21/20 04:34 [place] % (Auto) 8.7 % (0.0-7.3) H 03/21/20 04:34 Eos % (Auto) 0.2 % (0.0-4.3) 03/21/20 04:34 Baso % (Auto) 0.0 % (0.0-1.8) 03/21/20 04:34 Lymph # (Auto) 2.9 K/mm3 (1.2-5.4) 03/21/20 04:34 [place] # (Auto) 0.7 K/mm3 (0.0-0.8) 03/21/20 04:34 Eos # (Auto) 0.0 K/mm3 (0.0-0.4) 03/21/20 04:34 Baso # (Auto) 0.0 K/mm3 (0.0-0.1) 03/21/20 04:34 Add Manual Diff Complete 03/15/20 04:56 Total Counted 100 03/15/20 04:56 Seg Neutrophils % 53.7 % (40.0-70.0) 03/21/20 04:34 Seg Neuts % (Manual) 94.0 % (40.0-70.0) H 03/15/20 04:56 Band Neutrophils % 0 % 03/15/20 04:56 Lymphocytes % (Manual) 4.0 % (13.4-35.0) L 03/15/20 04:56 Reactive Lymphs % (Man) 0 % 03/15/20 04:56 Monocytes % (Manual) 2.0 % (0.0-7.3) 03/15/20 04:56 Eosinophils % (Manual) 0 % (0.0-4.3) 03/15/20 04:56 Basophils % (Manual) 0 % (0.0-1.8) 03/15/20 04:56 Metamyelocytes % 0 % 03/15/20 04:56 Myelocytes % 0 % 03/15/20 04:56 Promyelocytes % 0 % 03/15/20 04:56 Blast Cells % 0 % 03/15/20 04:56 Nucleated RBC % Not Reportable 03/15/20 04:56 Seg Neutrophils # 4.1 K/mm3 (1.8-7.7) 03/21/20 04:34 Seg Neutrophils # Man 9.7 K/mm3 (1.8-7.7) H 03/15/20 04:56 Band Neutrophils # 0.0 K/mm3 03/15/20 04:56 Lymphocytes # (Manual) 0.4 K/mm3 (1.2-5.4) L 03/15/20 04:56 Abs React Lymphs (Man) 0.0 K/mm3 03/15/20 04:56 Monocytes # (Manual) 0.2 K/mm3 (0.0-0.8) 03/15/20 04:56 Eosinophils # (Manual) 0.0 K/mm3 (0.0-0.4) 03/15/20 04:56 Basophils # (Manual) 0.0 K/mm3 (0.0-0.1) 03/15/20 04:56 Metamyelocytes # 0.0 K/mm3 03/15/20 04:56 Myelocytes # 0.0 K/mm3 03/15/20 04:56 Promyelocytes # 0.0 K/mm3 03/15/20 04:56 Blast Cells # 0.0 K/mm3 03/15/20 04:56 WBC Morphology Not Reportable 03/15/20 04:56 Hypersegmented Neuts Not Reportable 03/15/20 04:56 Hyposegmented Neuts Not Reportable 03/15/20 04:56 Hypogranular Neuts Not Reportable 03/15/20 04:56 Smudge Cells Not Reportable 03/15/20 04:56 Toxic Granulation Not Reportable 03/15/20 04:56 Toxic Vacuolation Not Reportable 03/15/20 04:56 Dohle Bodies Not Reportable 03/15/20 04:56 Pelger-Huet Anomaly Not Reportable 03/15/20 04:56 Mike Rods Not Reportable 03/15/20 04:56 Platelet Estimate Consistent w auto 03/15/20 04:56 Clumped Platelets Not Reportable 03/15/20 04:56 Plt Clumps, EDTA Not Reportable 03/15/20 04:56 Large Platelets Not Reportable 03/15/20 04:56 Giant Platelets Not Reportable 03/15/20 04:56 Platelet Satelliting Not Reportable 03/15/20 04:56 Plt Morphology Comment Not Reportable 03/15/20 04:56 RBC Morphology Not Reportable 03/15/20 04:56 Dimorphic RBCs Not Reportable 03/15/20 04:56 Polychromasia Not Reportable 03/15/20 04:56 Hypochromasia Not Reportable 03/15/20 04:56 Poikilocytosis Not Reportable 03/15/20 04:56 Anisocytosis Not Reportable 03/15/20 04:56 Microcytosis Not Reportable 03/15/20 04:56 Macrocytosis Not Reportable 03/15/20 04:56 Spherocytes Not Reportable 03/15/20 04:56 Pappenheimer Bodies Not Reportable 03/15/20 04:56 Sickle Cells Not Reportable 03/15/20 04:56 Target Cells Rare 03/15/20 04:56 Tear Drop Cells Not Reportable 03/15/20 04:56 Ovalocytes Not Reportable 03/15/20 04:56 Helmet Cells Not Reportable 03/15/20 04:56 [place] Bodies Not Reportable 03/15/20 04:56 [place] Rings Not Reportable 03/15/20 04:56 [place] Cells Not Reportable 03/15/20 04:56 Bite Cells Not Reportable 03/15/20 04:56 Crenated Cell Not Reportable 03/15/20 04:56 Elliptocytes Not Reportable 03/15/20 04:56 Acanthocytes (Spur) Not Reportable 03/15/20 04:56 Rouleaux Not Reportable 03/15/20 04:56 Hemoglobin C Crystals Not Reportable 03/15/20 04:56 Schistocytes Not Reportable 03/15/20 04:56 Malaria parasites Not Reportable 03/15/20 04:56 Branden Bodies Not Reportable 03/15/20 04:56 Hem Pathologist Commnt No 03/15/20 04:56 PT 15.9 Sec. (12.2-14.9) H 03/04/20 02:59 INR 1.29 (0.87-1.13) H 03/04/20 02:59 D-Dimer 1415.56 ng/mlDDU (0-234) H 03/03/20 22:00 ABG pH 7.505 (7.320-7.450) H 03/18/20 04:43 POC ABG pCO2 34.6 mmHg (32.0-48.0) 03/18/20 04:43 ABG pCO2 36.8 mm Hg 03/16/20 20:45 POC ABG pO2 132.0 mmHg (83-108) H 03/18/20 04:43 ABG pO2 122.9 mm Hg (80.0-90.0) H 03/16/20 20:45 POC ABG HCO3 26.7 03/18/20 04:43 ABG HCO3 26.6 mmol/L (20.0-26.0) H 03/16/20 20:45 ABG O2 Saturation 98.5 % (95.0-99.0) 03/16/20 20:45 ABG O2 Content 14.0 (0.0-44) 03/16/20 20:45 POC ABG Base Excess 3.7 03/18/20 04:43 ABG Base Excess 3.0 mmol/L (-2.0-3.0) 03/16/20 20:45 ABG Hemoglobin 11.2 (12.0-17.5) L 03/18/20 04:43 ABG Carboxyhemoglobin 1.0 % (0.0-5.0) 03/16/20 20:45 ABG Methemoglobin 0.5 % (0.0-1.5) 03/16/20 20:45 ABG Sodium 135.4 mmol/L (136.0-145.0) L 03/18/20 04:43 ABG Potassium 4.1 mmol/L (3.40-4.50) 03/18/20 04:43 ABG Chloride 103.0 mmol/L (98-107) 03/18/20 04:43 ABG Glucose 154 mg/dL (65-95) H 03/18/20 04:43 Oxyhemoglobin 97.0 % (95.0-99.0) 03/16/20 20:45 FiO2 30 03/18/20 04:43 Sodium 138 mmol/L (137-145) 03/21/20 04:34 Potassium 3.8 mmol/L (3.6-5.0) 03/21/20 04:34 Chloride 102.3 mmol/L (98-107) 03/21/20 04:34 Carbon Dioxide 26 mmol/L (22-30) 03/21/20 04:34 Anion Gap 14 mmol/L 03/21/20 04:34 BUN 22 mg/dL (9-20) H 03/21/20 04:34 Creatinine 0.2 mg/dL (0.8-1.3) L 03/21/20 04:34 Estimated GFR > 60 ml/min 03/21/20 04:34 BUN/Creatinine Ratio 110 % 03/21/20 04:34 Glucose 97 mg/dL (75-100) 03/21/20 04:34 POC Glucose 82 mg/dL (70-105) 03/21/20 08:44 Lactic Acid 0.80 mmol/L (0.7-2.0) 03/04/20 02:59 Calcium 8.8 mg/dL (8.4-10.2) 03/21/20 04:34 Magnesium 2.00 mg/dL (1.7-2.3) 03/14/20 07:08 Ferritin 522.1 ng/mL (30.0-300.0) H 03/03/20 22:00 Total Bilirubin 0.20 mg/dL (0.1-1.2) 03/14/20 07:08 AST 20 units/L (5-40) 03/14/20 07:08 ALT 34 units/L (7-56) 03/14/20 07:08 Alkaline Phosphatase 82 units/L (35-129) 03/14/20 07:08 Lactate Dehydrogenase 240 units/L (91-180) H 03/03/20 22:00 C-Reactive Protein 17.20 mg/dL (0.00-1.30) H 03/03/20 22:00 Total Protein 7.0 g/dL (6.3-8.2) 03/14/20 07:08 Albumin 2.5 g/dL (3.9-5) L 03/14/20 07:08 Albumin/Globulin Ratio 0.6 % 03/14/20 07:08 Procalcitonin 0.31 ng/mL (<0.15) 03/03/20 22:00 Arterial Blood Glucose 154 mg/dL (65-95) H 03/18/20 04:43 Arterial Blood Ionized Calcium 4.8 mg/dL (4.6-5.3) 03/18/20 04:43 Urine Color Bing (Yellow) 03/03/20 22:15 Urine Turbidity Clear (Clear) 03/03/20 22:15 Urine pH 5.0 (5.0-7.0) 03/03/20 22:15 Ur Specific [place] 1.031 (1.003-1.030) H 03/03/20 22:15 Urine Protein 30 mg/dl mg/dL (Negative) 03/03/20 22:15 Urine Glucose (UA) Neg mg/dL (Negative) 03/03/20 22:15 Urine Ketones Neg mg/dL (Negative) 03/03/20 22:15 Urine Blood Neg (Negative) 03/03/20 22:15 Urine Nitrite Neg (Negative) 03/03/20 22:15 Urine Bilirubin Neg (Negative) 03/03/20 22:15 Urine Urobilinogen 4.0 mg/dL (<2.0) 03/03/20 22:15 Ur Leukocyte Esterase Tr (Negative) 03/03/20 22:15 Urine WBC (Auto) 8.0 /HPF (0.0-6.0) H 03/03/20 22:15 Urine RBC (Auto) 2.0 /HPF (0.0-6.0) 03/03/20 22:15 U Epithel Cells (Auto) 1.0 /HPF (0-13.0) 03/03/20 22:15 Urine Bacteria (Auto) 1+ /HPF (Negative) 03/03/20 22:15 Hyaline Casts 1 /LPF 03/03/20 22:15 Urine Mucus 1+ /HPF 03/03/20 22:15 Vancomycin Trough 9.0 ug/mL (5.0-20.0) 03/06/20 20:15 Coronavirus (PCR) Negative (Negative) 03/04/20 09:16 Sarah/IV: Voiding Method Condom Catheter IV Catheter Type [Right Upper INT / Saline Lock arm] IV Catheter Type [Left Upper Mid-line arm] IV Catheter Type [Right Peripheral IV Forearm] Active Medications - Current Medications Current Medications: Generic Name Dose Route Start Last Admin Trade Name Freq PRN Reason Stop Dose Admin Albuterol/Ipratropium 1 ampul 03/12/20 08:00 03/21/20 08:44 Duoneb *Not For Prn Use* IH 1 ampul TIDRT KESHAWN Administration Lipase/Protease/Amylase 1 each 03/06/20 14:54 Pancreирина [place] 10,500 Unit FEEDTUBE PRN PRN For Clogged Feeding Tube Arformoterol Tartrate 15 mcg 03/10/20 20:00 03/21/20 08:44 Brovana Nebu IH 15 mcg Q12HRT KESHAWN Administration Budesonide 0.5 mg 03/10/20 20:00 03/21/20 08:43 Pulmicort IH 0.5 mg Q12HRT KESHAWN Administration Enoxaparin Sodium 40 mg 03/04/20 22:00 03/20/20 22:20 Enoxaparin SUB-Q 40 mg QDAY@2200 [facility] Administration Protocol Famotidine 20 mg 03/09/20 11:00 03/20/20 22:20 Pepcid FEEDTUBE 20 mg BID KESHAWN Administration Fentanyl 50 mcg 03/15/20 16:00 Sublimaze IV Q10MIN PRN ANALGESIA Fentanyl 25 mcg 03/17/20 10:00 03/20/20 11:17 Duragesic TD 25 mcg Q3D KESHAWN Administration Hydrophilic Ointment 1 applic 03/03/20 22:31 03/06/20 08:19 Vaseline Lip Therapy TP 1 applic Q2HR PRN Administration Dry Lips Magnesium Hydroxide 30 ml 03/03/20 23:45 Milk Of Magnesia PO Q4H PRN Constipation Methylprednisolone Sodium Succinate 40 mg 03/19/20 18:30 03/20/20 05:30 Methylprednisolone Sod Succinate 40 Mg/1 Ml Inj IV 40 mg Q12H [facility] Administration Morphine Sulfate 2 mg 03/03/20 23:45 03/14/20 09:09 Morphine IV 2 mg Q4H PRN Administration Pain, Moderate (4-6) Multi-Ingred Cream/Lotion/Oil/Oint 1 applic 03/03/20 22:31 Artificial Tears Ophth Oint OU Q4HR PRN Dry Eye(s) Ondansetron HCl 4 mg 03/03/20 23:45 03/05/20 16:12 Zofran IV 4 mg Q8H PRN Administration Nausea And Vomiting Quetiapine Fumarate 100 mg 03/12/20 22:00 03/20/20 22:20 Seroquel PO 100 mg BID [facility] Administration Simethicone 80 mg 03/11/20 09:39 03/14/20 21:46 Mylicon PO 80 mg Q6H PRN Administration Gas pain Simple Syrup 15 ml 03/06/20 14:54 Simple Syrup FEEDTUBE PRN PRN Hypoglycemia Simple Syrup 30 ml 03/06/20 14:54 Simple Syrup FEEDTUBE PRN PRN Hypoglycemia Sodium Bicarbonate 325 mg 03/06/20 14:54 Sodium Bicarbonate FEEDTUBE PRN PRN For Clogged Feeding Tube Sodium Chloride 10 ml 03/04/20 10:00 12/13/20 22:20 Sodium Chloride Flush Syringe 10 Ml IV 10 ml BID KESHAWN Administration Sodium Chloride 10 ml 03/03/20 23:45 Sodium Chloride Flush Syringe 10 Ml IV PRN PRN LINE FLUSH Nutrition/Malnutrition Assess - Dietary Evaluation Nutrition/Malnutrition Findings: Nutrition Notes Start: 03/04/20 09:15 Freq: Status: Active Protocol: Document 03/18/20 10:51 AB (Rec: 03/18/20 10:58 AB [id number]) Co-Sign 03/18/20 10:51 LM Nutrition Notes Initial or Follow up Reassessment Current Diagnosis Sepsis,Hypertension, Respiratory Failure Other Pertinent Diagnosis Bilat pneu, sacral wound, TBI Current Diet Vital AF 1.2 at 70 ml/hr Labs/Tests Reviewed Pertinent Medications Reviewed Height 6 ft 3 in Weight 63.4 kg [place] Body Weight (kg) 89.09 BMI 17.4 Weight Status Underweight Subjective/Other Information F/U TF tolerance and diarrhea. Per RN, pt is continuing to have loose BMs. 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 Yes Is Patient Ambulatory and/or Out of Bed No REE-([facility]-confined to bed) 1816.932 Kcal/Kg value to use for calculation 35 Approximate Energy Requirements Using 2219 kcal/Kg Calculation Used for Recommendations Kcal/kg Additional Notes Pro needs 1.25-2g/k-127g/ day Fluid needs 1ml/kcal Nutrition Intervention Change Diet Order: Continue current TF order Nutrition Support: Vital AF 1.2 at 70 ml/hr Flush with 125 ml q4h Kcal 2,016 Protein (gm) 126 Fluid (mL) 1,363 Goal #1 TF tolerance Goal #2 TF (at goal rate) to meet 100% energy and pro needs Goal #3 Wt maintenance and/or gain Goal #4 Wound healing Anticipated Discharge Needs: Continue TF Follow-Up By: 03/23/20 Additional Comments F/U for TF tolerance, diarrhea
[2020-03-21] MEDS: FAMOTIDINE 20 MG TAB FEEDTUBE SCH ×2 (12:00→21:38)
[2020-03-21] MEDS: methylPREDNISolone Sod Succinate 40 MG/1 ML INJ IV SCH (12:00)
[2020-03-21] MEDS: QUEtiapine 100 MG TAB PO SCH ×2 (13:52→21:38)
--- NOTE | 2020-03-21 14:25 | Progress Note ---
Assessment and Plan Patient awake, weak and emaciated. Patient is on T tube, FIO2 28% and O2 saturation running 100%. Patient afebrile. No leukocytosis. Patients chest xray done 03/19/20 reported Minimally improved patchy bibasilar pulmonary opacities since prior exam dated 03/10/2020. Tracheostomy tube in appropriate position. Gastrostomy tube in stable position. Left midline catheter tubing with its tip projected over the axillary region. Patient is on I/V solumedrol, albuterol/atrovent aerosol treatments. S/C Lovenox and famotidine. - Patient Problems (1) Respiratory failure Current Visit: Yes Status: Acute Qualifiers: Chronicity: acute Respiratory failure complication: hypoxia Qualified Co de(s): J96.01 - Acute respiratory failure with hypoxia Plan to address problem: Patient S/P tracheostomy. Patient is on T tube, FIO2 28%. Continue I/V solumedrol. Albuterol/atrovent aerosol treatments. S/C Lovenox. Famotidine. (2) Person under investigation for COVID-19 Current Visit: Yes Status: Acute Plan to address problem: [place] virus PCR reported negative. (3) Pneumonia Current Visit: Yes Status: Acute Qualifiers: Pneumonia type: due to unspecified organism Laterality: bilateral Lung location: unspecified part of lung Qualified Code(s): J18.9 - Pneumonia, unspecified organism Plan to address problem: Patient was treated with ceftriaxone and Zithromax. (4) Hypernatremia Current Visit: Yes Status: Acute Plan to address problem: Improved. Patients recent na+ 138. (5) Sepsis Current Visit: Yes Status: Acute Qualifiers: Sepsis type: sepsis due to unspecified organism Sepsis acute organ dysfunction status: with acute organ dysfunction Severe sepsis acute organ dysfunction type: acute respiratory failure Acute respiratory failure type: with hypoxia Severe sepsis shock status: without septic shock Qualified Code(s): A41.9 - Sepsis, unspecified organism; R65.20 - Severe sepsis without septic shock; J96.01 - Acute respiratory failure with hypoxia Plan to address problem: Patient was treated with ceftriaxone and zithromax. (6) UTI (urinary tract infection) Current Visit: Yes Status: Acute Qualifiers: Urinary tract infection type: acute cystitis Hematuria presence: with hematuria Qualified Code(s): N30.01 - Acute cystitis with hematuria Plan to address problem: Patient was on ceftriaxone. Subjective Date of service: 03/21/20 Principal diagnosis: Severe Sepsis; PNA; Ac on ch hypoxemic resp failure; [id number] Interval history: Patient awake, weak and emaciated. Patient is on T tube, FIO2 28% and O2 saturation running 100%. Patient afebrile. No leukocytosis. Patients chest xray done 03/19/20 reported Minimally improved patchy bibasilar pulmonary opacities since prior exam dated 03/10/2020. Tracheostomy tube in appropriate position. Gastrostomy tube in stable position. Left midline catheter tubing with its tip projected over the axillary region. Patient is on I/V solumedrol, albuterol/atrovent aerosol treatments. S/C Lovenox and famotidine. Objective Vital Signs - 12hr 03/21/20 03/21/20 03/21/20 04:16 08:15 08:44 Temperature 98.4 F Pulse Rate 53 L Pulse Rate [ 62 Anterior Bilateral Throughout] Respiratory 16 Rate Respiratory 18 Rate [Anterior Bilateral Throughout] Blood Pressure 118/67 O2 Sat by Pulse 100 100 Oximetry O2 Sat by Pulse Oximetry [ Assessment] 03/21/20 03/21/20 03/21/20 08:52 08:59 12:26 Temperature 98.3 F 97.8 F Pulse Rate 54 L 66 Pulse Rate [ Anterior Bilateral Throughout] Respiratory 20 20 Rate Respiratory Rate [Anterior Bilateral Throughout] Blood Pressure 128/65 109/66 O2 Sat by Pulse 100 97 Oximetry O2 Sat by Pulse 100 Oximetry [ Assessment] Constitutional: no acute distress, alert, other (elderly thin male with mildly increased respiratory effort at rest) Eyes: non-icteric ENT: oropharynx moist, other (+ midline Shiley tracheostomy) Neck: supple, no lymphadenopathy, no JVD Effort: mildly labored Ascultation: Bilateral: diminished breath sounds, rhonchi (scant), other (prolonged exp phase) Percussion: Bilateral: not dull Cardiovascular: regular rate and rhythm, other (S1,S2) Gastrointestinal: normoactive bowel sounds, soft, non-tender, non-distended, other (PEG in place) Integumentary: normal Extremities: no cyanosis, no edema, pulses normal Neurologic: pupils equal and round, CN II-XII normal, unable to assess, other (RUExt weakness) Psychiatric: anxious CBC and BMP: 03/21/20 04:34 03/21/20 04:34 ABG, PT/INR, D-dimer: ABG ABG pH 7.505 (7.320-7.450) H 03/18/20 04:43 POC ABG pCO2 34.6 mmHg (32.0-48.0) 03/18/20 04:43 ABG pCO2 36.8 mm Hg 03/16/20 20:45 POC ABG pO2 132.0 mmHg (83-108) H 03/18/20 04:43 ABG pO2 122.9 mm Hg (80.0-90.0) H 03/16/20 20:45 POC ABG HCO3 26.7 03/18/20 04:43 ABG O2 Saturation 98.5 % (95.0-99.0) 03/16/20 20:45 PT/INR, D-dimer PT 15.9 Sec. (12.2-14.9) H 03/04/20 02:59 INR 1.29 (0.87-1.13) H 03/04/20 02:59 D-Dimer 1415.56 ng/mlDDU (0-234) H 03/03/20 22:00 Abnormal lab findings: Abnormal Labs 03/03/20 03/03/20 03/03/20 01:10 21:51 21:51 WBC 15.5 H RBC Hgb Hct 35.3 L RDW 17.9 H Lymph % (Auto) 11.6 L [place] % (Auto) Seg Neutrophils % 83.7 H Seg Neuts % (Manual) Lymphocytes % (Manual) Seg Neutrophils # 13.0 H Seg Neutrophils # Man Lymphocytes # (Manual) Monocytes # (Manual) PT INR D-Dimer ABG pH POC ABG pCO2 POC ABG pO2 ABG pO2 173.4 H ABG HCO3 26.7 H ABG O2 Saturation 99.1 H ABG Hemoglobin 11.6 L ABG Sodium ABG Potassium ABG Chloride ABG Glucose Sodium 151 H Potassium Chloride 114.4 H Carbon Dioxide BUN 29 H Creatinine 0.6 L Glucose 116 H POC Glucose Ferritin Lactate Dehydrogenase C-Reactive Protein Total Protein 8.9 H Albumin 2.8 L Arterial Blood Glucose Ur Specific Printer Urine WBC (Auto) 03/03/20 03/03/20 03/03/20 22:00 22:00 22:00 WBC RBC Hgb Hct RDW Lymph % (Auto) [place] % (Auto) Seg Neutrophils % Seg Neuts % (Manual) Lymphocytes % (Manual) Seg Neutrophils # Seg Neutrophils # Man Lymphocytes # (Manual) Monocytes # (Manual) PT INR D-Dimer 1415.56 H ABG pH POC ABG pCO2 POC ABG pO2 ABG pO2 ABG HCO3 ABG O2 Saturation ABG Hemoglobin ABG Sodium ABG Potassium ABG Chloride ABG Glucose Sodium Potassium Chloride Carbon Dioxide BUN Creatinine Glucose 106 H POC Glucose Ferritin 522.1 H Lactate Dehydrogenase 240 H C-Reactive Protein 17.20 H Total Protein Albumin Arterial Blood Glucose Ur Specific Printer Urine WBC (Auto) 03/03/20 03/04/20 03/04/20 22:15 02:59 02:59 WBC 15.2 H RBC 3.56 L Hgb 10.9 L Hct 33.4 L RDW 17.5 H Lymph % (Auto) [place] % (Auto) Seg Neutrophils % Seg Neuts % (Manual) 93.0 H Lymphocytes % (Manual) 5.0 L Seg Neutrophils # Seg Neutrophils # Man 14.1 H Lymphocytes # (Manual) 0.8 L Monocytes # (Manual) PT 15.9 H INR 1.29 H D-Dimer ABG pH POC ABG pCO2 POC ABG pO2 ABG pO2 ABG HCO3 ABG O2 Saturation ABG Hemoglobin ABG Sodium ABG Potassium ABG Chloride ABG Glucose Sodium Potassium Chloride Carbon Dioxide BUN Creatinine Glucose POC Glucose Ferritin Lactate Dehydrogenase C-Reactive Protein Total Protein Albumin Arterial Blood Glucose Ur Specific Printer 1.031 H Urine WBC (Auto) 8.0 H 03/04/20 03/04/20 03/05/20 02:59 16:16 04:00 WBC RBC Hgb Hct RDW Lymph % (Auto) [place] % (Auto) Seg Neutrophils % Seg Neuts % (Manual) Lymphocytes % (Manual) Seg Neutrophils # Seg Neutrophils # Man Lymphocytes # (Manual) Monocytes # (Manual) PT INR D-Dimer ABG pH 7.451 H 7.498 H POC ABG pCO2 POC ABG pO2 ABG pO2 102.9 H 122.7 H ABG HCO3 ABG O2 Saturation ABG Hemoglobin 12.7 L 10.2 L ABG Sodium ABG Potassium ABG Chloride ABG Glucose Sodium 152 H Potassium Chloride 116.9 H Carbon Dioxide BUN 27 H Creatinine 0.4 L Glucose 127 H POC Glucose Ferritin Lactate Dehydrogenase C-Reactive Protein Total Protein Albumin Arterial Blood Glucose Ur Specific Printer Urine WBC (Auto) 03/05/20 03/05/20 03/05/20 05:32 05:32 18:05 WBC 17.4 H RBC 3.35 L Hgb 10.3 L Hct 31.4 L RDW 17.2 H Lymph % (Auto) 10.9 L [place] % (Auto) Seg Neutrophils % 85.3 H Seg Neuts % (Manual) Lymphocytes % (Manual) Seg Neutrophils # 14.8 H Seg Neutrophils # Man Lymphocytes # (Manual) Monocytes # (Manual) PT INR D-Dimer ABG pH POC ABG pCO2 POC ABG pO2 ABG pO2 ABG HCO3 ABG O2 Saturation ABG Hemoglobin ABG Sodium ABG Potassium ABG Chloride ABG Glucose Sodium 150 H 146 H Potassium 3.4 L Chloride 115.0 H 113.7 H Carbon Dioxide 20 L BUN 29 H Creatinine 0.5 L 0.3 L Glucose POC Glucose Ferritin Lactate Dehydrogenase C-Reactive Protein Total Protein Albumin Arterial Blood Glucose Ur Specific Printer Urine WBC (Auto) 03/06/20 03/06/20 03/06/20 04:16 04:16 05:50 WBC 11.2 H RBC 3.05 L Hgb 9.2 L Hct 28.2 L RDW 16.8 H Lymph % (Auto) [place] % (Auto) Seg Neutrophils % 80.0 H Seg Neuts % (Manual) Lymphocytes % (Manual) Seg Neutrophils # 9.0 H Seg Neutrophils # Man Lymphocytes # (Manual) Monocytes # (Manual) PT INR D-Dimer ABG pH POC ABG pCO2 POC ABG pO2 ABG pO2 194.8 H ABG HCO3 ABG O2 Saturation 99.3 H ABG Hemoglobin 9.2 L ABG Sodium ABG Potassium ABG Chloride ABG Glucose Sodium 146 H Potassium 3.1 L Chloride 111.3 H Carbon Dioxide BUN Creatinine 0.4 L Glucose POC Glucose Ferritin Lactate Dehydrogenase C-Reactive Protein Total Protein Albumin Arterial Blood Glucose Ur Specific Printer Urine WBC (Auto) 03/07/20 03/07/20 03/07/20 02:54 05:47 06:03 WBC RBC 3.21 L Hgb 9.8 L Hct 28.6 L RDW 16.6 H Lymph % (Auto) [place] % (Auto) Seg Neutrophils % 80.1 H Seg Neuts % (Manual) Lymphocytes % (Manual) Seg Neutrophils # 7.8 H Seg Neutrophils # Man Lymphocytes # (Manual) Monocytes # (Manual) PT INR D-Dimer ABG pH 7.504 H POC ABG pCO2 30.5 L POC ABG pO2 ABG pO2 ABG HCO3 ABG O2 Saturation ABG Hemoglobin 10.4 L ABG Sodium ABG Potassium 2.7 L ABG Chloride 109.0 H ABG Glucose Sodium Potassium Chloride Carbon Dioxide BUN Creatinine Glucose POC Glucose 126 H Ferritin Lactate Dehydrogenase C-Reactive Protein Total Protein Albumin Arterial Blood Glucose Ur Specific Printer Urine WBC (Auto) 03/07/20 03/07/20 03/07/20 06:03 17:22 17:25 WBC RBC Hgb Hct RDW Lymph % (Auto) [place] % (Auto) Seg Neutrophils % Seg Neuts % (Manual) Lymphocytes % (Manual) Seg Neutrophils # Seg Neutrophils # Man Lymphocytes # (Manual) Monocytes # (Manual) PT INR D-Dimer ABG pH POC ABG pCO2 POC ABG pO2 ABG pO2 ABG HCO3 ABG O2 Saturation ABG Hemoglobin ABG Sodium ABG Potassium ABG Chloride ABG Glucose Sodium Potassium 2.7 L* Chloride 107.6 H Carbon Dioxide 21 L BUN 8 L Creatinine 0.3 L Glucose 129 H POC Glucose 119 H 125 H Ferritin Lactate Dehydrogenase C-Reactive Protein Total Protein Albumin Arterial Blood Glucose Ur Specific Printer Urine WBC (Auto) 03/07/20 03/08/20 03/08/20 23:30 04:30 16:56 WBC RBC Hgb Hct RDW Lymph % (Auto) [place] % (Auto) Seg Neutrophils % Seg Neuts % (Manual) Lymphocytes % (Manual) Seg Neutrophils # Seg Neutrophils # Man Lymphocytes # (Manual) Monocytes # (Manual) PT INR D-Dimer ABG pH 7.513 H POC ABG pCO2 POC ABG pO2 ABG pO2 170.6 H ABG HCO3 ABG O2 Saturation 99.2 H ABG Hemoglobin 8.8 L ABG Sodium ABG Potassium ABG Chloride ABG Glucose Sodium Potassium Chloride Carbon Dioxide BUN Creatinine Glucose POC Glucose 107 H 108 H Ferritin Lactate Dehydrogenase C-Reactive Protein Total Protein Albumin Arterial Blood Glucose Ur Specific Printer Urine WBC (Auto) 03/08/20 03/09/20 03/09/20 21:07 04:17 11:08 WBC RBC Hgb Hct RDW Lymph % (Auto) [place] % (Auto) Seg Neutrophils % Seg Neuts % (Manual) Lymphocytes % (Manual) Seg Neutrophils # Seg Neutrophils # Man Lymphocytes # (Manual) Monocytes # (Manual) PT INR D-Dimer ABG pH 7.498 H POC ABG pCO2 POC ABG pO2 125.5 H ABG pO2 ABG HCO3 ABG O2 Saturation ABG Hemoglobin ABG Sodium ABG Potassium ABG Chloride 109.0 H ABG Glucose 103 H Sodium Potassium Chloride 109.4 H Carbon Dioxide BUN 6 L Creatinine 0.3 L Glucose 121 H POC Glucose 123 H Ferritin Lactate Dehydrogenase C-Reactive Protein Total Protein Albumin 2.8 L Arterial Blood Glucose 103 H Ur Specific Printer Urine WBC (Auto) 03/10/20 03/10/20 03/10/20 04:46 08:10 08:10 WBC RBC Hgb 9.5 L Hct 28.6 L RDW Lymph % (Auto) [place] % (Auto) Seg Neutrophils % Seg Neuts % (Manual) Lymphocytes % (Manual) Seg Neutrophils # Seg Neutrophils # Man Lymphocytes # (Manual) Monocytes # (Manual) PT INR D-Dimer ABG pH 7.533 H POC ABG pCO2 POC ABG pO2 128.2 H ABG pO2 ABG HCO3 ABG O2 Saturation ABG Hemoglobin 10.0 L ABG Sodium ABG Potassium ABG Chloride ABG Glucose 110 H Sodium Potassium Chloride Carbon Dioxide BUN 5 L Creatinine 0.2 L Glucose POC Glucose Ferritin Lactate Dehydrogenase C-Reactive Protein Total Protein Albumin Arterial Blood Glucose 110 H Ur Specific Printer Urine WBC (Auto) 03/10/20 03/10/20 03/11/20 17:22 23:24 05:07 WBC RBC Hgb Hct RDW Lymph % (Auto) [place] % (Auto) Seg Neutrophils % Seg Neuts % (Manual) Lymphocytes % (Manual) Seg Neutrophils # Seg Neutrophils # Man Lymphocytes # (Manual) Monocytes # (Manual) PT INR D-Dimer ABG pH POC ABG pCO2 POC ABG pO2 ABG pO2 ABG HCO3 ABG O2 Saturation ABG Hemoglobin ABG Sodium ABG Potassium ABG Chloride ABG Glucose Sodium Potassium Chloride Carbon Dioxide BUN Creatinine Glucose POC Glucose 108 H 189 H 217 H Ferritin Lactate Dehydrogenase C-Reactive Protein Total Protein Albumin Arterial Blood Glucose Ur Specific Printer Urine WBC (Auto) 03/11/20 03/11/20 03/12/20 11:28 23:25 05:14 WBC RBC Hgb Hct RDW Lymph % (Auto) [place] % (Auto) Seg Neutrophils % Seg Neuts % (Manual) Lymphocytes % (Manual) Seg Neutrophils # Seg Neutrophils # Man Lymphocytes # (Manual) Monocytes # (Manual) PT INR D-Dimer ABG pH POC ABG pCO2 POC ABG pO2 ABG pO2 ABG HCO3 ABG O2 Saturation ABG Hemoglobin ABG Sodium ABG Potassium ABG Chloride ABG Glucose Sodium Potassium Chloride Carbon Dioxide BUN Creatinine Glucose POC Glucose 212 H 152 H 193 H Ferritin Lactate Dehydrogenase C-Reactive Protein Total Protein Albumin Arterial Blood Glucose Ur Specific Printer Urine WBC (Auto) 03/12/20 03/12/20 03/12/20 11:58 17:11 23:27 WBC RBC Hgb Hct RDW Lymph % (Auto) [place] % (Auto) Seg Neutrophils % Seg Neuts % (Manual) Lymphocytes % (Manual) Seg Neutrophils # Seg Neutrophils # Man Lymphocytes # (Manual) Monocytes # (Manual) PT INR D-Dimer ABG pH POC ABG pCO2 POC ABG pO2 ABG pO2 ABG HCO3 ABG O2 Saturation ABG Hemoglobin ABG Sodium ABG Potassium ABG Chloride ABG Glucose Sodium Potassium Chloride Carbon Dioxide BUN Creatinine Glucose POC Glucose 142 H 141 H 175 H Ferritin Lactate Dehydrogenase C-Reactive Protein Total Protein Albumin Arterial Blood Glucose Ur Specific Printer Urine WBC (Auto) 03/13/20 03/13/20 03/13/20 05:33 12:04 23:20 WBC RBC Hgb Hct RDW Lymph % (Auto) [place] % (Auto) Seg Neutrophils % Seg Neuts % (Manual) Lymphocytes % (Manual) Seg Neutrophils # Seg Neutrophils # Man Lymphocytes # (Manual) Monocytes # (Manual) PT INR D-Dimer ABG pH POC ABG pCO2 POC ABG pO2 ABG pO2 ABG HCO3 ABG O2 Saturation ABG Hemoglobin ABG Sodium ABG Potassium ABG Chloride ABG Glucose Sodium Potassium Chloride Carbon Dioxide BUN Creatinine Glucose POC Glucose 184 H 182 H 132 H Ferritin Lactate Dehydrogenase C-Reactive Protein Total Protein Albumin Arterial Blood Glucose Ur Specific Printer Urine WBC (Auto) 03/14/20 03/14/20 03/14/20 05:16 07:08 07:08 WBC 14.7 H RBC 3.30 L Hgb 9.8 L Hct 30.3 L RDW 17.3 H Lymph % (Auto) [place] % (Auto) Seg Neutrophils % Seg Neuts % (Manual) 87.0 H Lymphocytes % (Manual) 7.0 L Seg Neutrophils # Seg Neutrophils # Man 12.8 H Lymphocytes # (Manual) 1.0 L Monocytes # (Manual) 0.9 H PT INR D-Dimer ABG pH POC ABG pCO2 POC ABG pO2 ABG pO2 ABG HCO3 ABG O2 Saturation ABG Hemoglobin ABG Sodium ABG Potassium ABG Chloride ABG Glucose Sodium Potassium Chloride Carbon Dioxide BUN Creatinine 0.3 L Glucose 111 H POC Glucose 116 H Ferritin Lactate Dehydrogenase C-Reactive Protein Total Protein Albumin 2.5 L Arterial Blood Glucose Ur Specific Printer Urine WBC (Auto) 03/14/20 03/15/20 03/15/20 16:58 04:56 04:56 WBC RBC 3.31 L Hgb 10.2 L Hct 30.2 L RDW 17.5 H Lymph % (Auto) [place] % (Auto) Seg Neutrophils % Seg Neuts % (Manual) 94.0 H Lymphocytes % (Manual) 4.0 L Seg Neutrophils # Seg Neutrophils # Man 9.7 H Lymphocytes # (Manual) 0.4 L Monocytes # (Manual) PT INR D-Dimer ABG pH POC ABG pCO2 POC ABG pO2 ABG pO2 ABG HCO3 ABG O2 Saturation ABG Hemoglobin ABG Sodium ABG Potassium ABG Chloride ABG Glucose Sodium Potassium Chloride Carbon Dioxide BUN Creatinine 0.3 L Glucose 189 H POC Glucose 134 H Ferritin Lactate Dehydrogenase C-Reactive Protein Total Protein Albumin Arterial Blood Glucose Ur Specific Printer Urine WBC (Auto) 03/15/20 03/15/20 03/16/20 05:26 17:46 05:23 WBC RBC Hgb Hct RDW Lymph % (Auto) [place] % (Auto) Seg Neutrophils % Seg Neuts % (Manual) Lymphocytes % (Manual) Seg Neutrophils # Seg Neutrophils # Man Lymphocytes # (Manual) Monocytes # (Manual) PT INR D-Dimer ABG pH POC ABG pCO2 POC ABG pO2 ABG pO2 ABG HCO3 ABG O2 Saturation ABG Hemoglobin ABG Sodium ABG Potassium ABG Chloride ABG Glucose Sodium Potassium Chloride Carbon Dioxide BUN Creatinine Glucose POC Glucose 159 H 110 H 149 H Ferritin Lactate Dehydrogenase C-Reactive Protein Total Protein Albumin Arterial Blood Glucose Ur Specific Printer Urine WBC (Auto) 03/16/20 03/16/20 03/16/20 12:05 20:45 23:27 WBC RBC Hgb Hct RDW Lymph % (Auto) [place] % (Auto) Seg Neutrophils % Seg Neuts % (Manual) Lymphocytes % (Manual) Seg Neutrophils # Seg Neutrophils # Man Lymphocytes # (Manual) Monocytes # (Manual) PT INR D-Dimer ABG pH 7.478 H POC ABG pCO2 POC ABG pO2 ABG pO2 122.9 H ABG HCO3 26.6 H ABG O2 Saturation ABG Hemoglobin 10.1 L ABG Sodium ABG Potassium ABG Chloride ABG Glucose Sodium Potassium Chloride Carbon Dioxide BUN Creatinine Glucose POC Glucose 116 H 114 H Ferritin Lactate Dehydrogenase C-Reactive Protein Total Protein Albumin Arterial Blood Glucose Ur Specific Printer Urine WBC (Auto) 03/17/20 03/17/20 03/17/20 05:42 11:51 18:19 WBC RBC Hgb Hct RDW Lymph % (Auto) [place] % (Auto) Seg Neutrophils % Seg Neuts % (Manual) Lymphocytes % (Manual) Seg Neutrophils # Seg Neutrophils # Man Lymphocytes # (Manual) Monocytes # (Manual) PT INR D-Dimer ABG pH POC ABG pCO2 POC ABG pO2 ABG pO2 ABG HCO3 ABG O2 Saturation ABG Hemoglobin ABG Sodium ABG Potassium ABG Chloride ABG Glucose Sodium Potassium Chloride Carbon Dioxide BUN Creatinine Glucose POC Glucose 160 H 113 H 115 H Ferritin Lactate Dehydrogenase C-Reactive Protein Total Protein Albumin Arterial Blood Glucose Ur Specific Printer Urine WBC (Auto) 03/17/20 03/18/20 03/18/20 23:36 04:43 05:40 WBC RBC Hgb Hct RDW Lymph % (Auto) [place] % (Auto) Seg Neutrophils % Seg Neuts % (Manual) Lymphocytes % (Manual) Seg Neutrophils # Seg Neutrophils # Man Lymphocytes # (Manual) Monocytes # (Manual) PT INR D-Dimer ABG pH 7.505 H POC ABG pCO2 POC ABG pO2 132.0 H ABG pO2 ABG HCO3 ABG O2 Saturation ABG Hemoglobin 11.2 L ABG Sodium 135.4 L ABG Potassium ABG Chloride ABG Glucose 154 H Sodium Potassium Chloride Carbon Dioxide BUN Creatinine Glucose POC Glucose 108 H 152 H Ferritin Lactate Dehydrogenase C-Reactive Protein Total Protein Albumin Arterial Blood Glucose 154 H Ur Specific Printer Urine WBC (Auto) 03/18/20 03/19/20 03/19/20 23:06 05:42 08:28 WBC RBC Hgb Hct RDW Lymph % (Auto) [place] % (Auto) Seg Neutrophils % Seg Neuts % (Manual) Lymphocytes % (Manual) Seg Neutrophils # Seg Neutrophils # Man Lymphocytes # (Manual) Monocytes # (Manual) PT INR D-Dimer ABG pH POC ABG pCO2 POC ABG pO2 ABG pO2 ABG HCO3 ABG O2 Saturation ABG Hemoglobin ABG Sodium ABG Potassium ABG Chloride ABG Glucose Sodium Potassium Chloride Carbon Dioxide BUN Creatinine 0.3 L Glucose 108 H POC Glucose 109 H 168 H Ferritin Lactate Dehydrogenase C-Reactive Protein Total Protein Albumin Arterial Blood Glucose Ur Specific Printer Urine WBC (Auto) 03/19/20 03/20/20 03/20/20 23:29 05:30 11:42 WBC RBC Hgb Hct RDW Lymph % (Auto) [place] % (Auto) Seg Neutrophils % Seg Neuts % (Manual) Lymphocytes % (Manual) Seg Neutrophils # Seg Neutrophils # Man Lymphocytes # (Manual) Monocytes # (Manual) PT INR D-Dimer ABG pH POC ABG pCO2 POC ABG pO2 ABG pO2 ABG HCO3 ABG O2 Saturation ABG Hemoglobin ABG Sodium ABG Potassium ABG Chloride ABG Glucose Sodium Potassium Chloride Carbon Dioxide BUN Creatinine Glucose POC Glucose 117 H 171 H 113 H Ferritin Lactate Dehydrogenase C-Reactive Protein Total Protein Albumin Arterial Blood Glucose Ur Specific Printer Urine WBC (Auto) 03/21/20 03/21/20 04:34 04:34 WBC RBC Hgb 11.5 L Hct 34.5 L RDW 17.6 H Lymph % (Auto) 37.4 H [place] % (Auto) 8.7 H Seg Neutrophils % Seg Neuts % (Manual) Lymphocytes % (Manual) Seg Neutrophils # Seg Neutrophils # Man Lymphocytes # (Manual) Monocytes # (Manual) PT INR D-Dimer ABG pH POC ABG pCO2 POC ABG pO2 ABG pO2 ABG HCO3 ABG O2 Saturation ABG Hemoglobin ABG Sodium ABG Potassium ABG Chloride ABG Glucose Sodium Potassium Chloride Carbon Dioxide BUN 22 H Creatinine 0.2 L Glucose POC Glucose Ferritin Lactate Dehydrogenase C-Reactive Protein Total Protein Albumin Arterial Blood Glucose Ur Specific Printer Urine WBC (Auto) Allied health notes reviewed: nursing
[2020-03-21] MEDS: ENOXAPARIN 40 MG/0.4 ML INJ SUB-Q SCH (21:38)
[2020-03-22] MEDS: methylPREDNISolone Sod Succinate 40 MG/1 ML INJ IV SCH ×3 (06:14→17:30)
[2020-03-22] MEDS: ARFORMOTEROL 15 MCG/2 ML NEBU IH SCH ×3 (06:35→20:39)
[2020-03-22] MEDS: BUDESONIDE 0.5 MG/2 ML NEBU IH SCH ×3 (06:35→20:40)
[2020-03-22] MEDS: IPRATROPIUM/ALBUTEROL SULFATE 3 ML AMPUL.NEB IH SCH ×4 (08:41→20:40)
[2020-03-22] MEDS: FAMOTIDINE 20 MG TAB FEEDTUBE SCH ×2 (10:39→21:45)
[2020-03-22] MEDS: QUEtiapine 100 MG TAB PO SCH ×2 (10:39→21:45)
--- NOTE | 2020-03-22 11:32 | Progress Note ---
Assessment and Plan Patient awake, weak and emaciated. Patient is on T tube, FIO2 28% and O2 saturation running 100%. Patient afebrile. No leukocytosis. Patients chest xray done 03/19/20 reported Minimally improved patchy bibasilar pulmonary opacities since prior exam dated 03/10/2020. Tracheostomy tube in appropriate position. Gastrostomy tube in stable position. Left midline catheter tubing with its tip projected over the axillary region. Not much change in patients general condition. Patient is on I/V solumedrol, albuterol/atrovent aerosol treatments. S/C Lovenox and famotidine. - Patient Problems (1) Respiratory failure Current Visit: Yes Status: Acute Qualifiers: Chronicity: acute Respiratory failure complication: hypoxia Qualified Code(s): J96.01 - Acute respiratory failure with hypoxia Plan to address problem: Patient S/P tracheostomy. Patient is on T tube, FIO2 28%. Continue I/V solumedrol. Albuterol/atrovent aerosol treatments. S/C Lovenox. Famotidine. (2) Person under investigation for COVID-19 Current Visit: Yes Status: Acute Plan to address problem: [place] virus PCR reported negative. (3) Pneumonia Current Visit: Yes Status: Acute Qualifiers: Pneumonia type: due to unspecified organism Laterality: bilateral Lung location: unspecified part of lung Qualified Code(s): J18.9 - Pneumonia, unspecified organism Plan to address problem: Patient was treated with ceftriaxone and Zithromax. (4) Hypernatremia Current Visit: Yes Status: Acute Plan to address problem: Improved. Patients recent na+ 138. (5) Sepsis Current Visit: Yes Status: Acute Qualifiers: Sepsis type: sepsis due to unspecified organism Sepsis acute organ dysfunction status: with acute organ dysfunction Severe sepsis acute organ dysfunction type: acute respiratory failure Acute respiratory failure type: with hypoxia Severe sepsis shock status: without septic shock Qualified Code(s): A41.9 - Sepsis, unspecified organism; R65.20 - Severe sepsis without septic shock; J96.01 - Acute respiratory failure with hypoxia Plan to address problem: Patient was treated with ceftriaxone and zithromax. (6) UTI (urinary tract infection) Current Visit: Yes Status: Acute Qualifiers: Urinary tract infection type: acute cystitis Hematuria presence: with hematuria Qualified Code(s): N30.01 - Acute cystitis with hematuria Plan to address problem: Patient was on ceftriaxone. Subjective Date of service: 03/22/20 Principal diagnosis: Severe Sepsis; PNA; Ac on ch hypoxemic resp failure; [id number] Interval history: Patient awake, weak and emaciated. Patient is on T tube, FIO2 28% and O2 saturation running 100%. Patient afebrile. No leukocytosis. Patients chest xray done 03/19/20 reported Minimally improved patchy bibasilar pulmonary opacities since prior exam dated 03/10/2020. Tracheostomy tube in appropriate position. Gastrostomy tube in stable position. Left midline catheter tubing with its tip projected over the axillary region. Not much change in patients general condition. Patient is on I/V solumedrol, albuterol/atrovent aerosol treatments. S/C Lovenox and famotidine. Objective Vital Signs - 12hr 03/22/20 03/22/20 03/22/20 04:25 05:56 06:36 Temperature 98.6 F Pulse Rate 84 Pulse Rate [ 68 Anterior Bilateral Throughout] Respiratory 16 Rate Respiratory 18 Rate [Anterior Bilateral Throughout] Blood Pressure 105/68 O2 Sat by Pulse 100 Oximetry O2 Sat by Pulse 98 Oximetry [ Assessment] 03/22/20 03/22/20 06:39 07:55 Temperature 97.5 F L Pulse Rate 53 L Pulse Rate [ Anterior Bilateral Throughout] Respiratory 18 Rate Respiratory Rate [Anterior Bilateral Throughout] Blood Pressure 103/54 O2 Sat by Pulse 99 100 Oximetry O2 Sat by Pulse Oximetry [ Assessment] Constitutional: no acute distress, alert, other (elderly thin male with mildly increased respiratory effort at rest) Eyes: non-icteric ENT: oropharynx moist, other (+ midline [place] tracheostomy) Neck: supple, no lymphadenopathy, no JVD Effort: mildly labored Ascultation: Bilateral: diminished breath sounds, rhonchi (scant), other (prolonged exp phase) Percussion: Bilateral: not dull Cardiovascular: regular rate and rhythm, other (S1,S2) Gastrointestinal: normoactive bowel sounds, soft, non-tender, non-distended, other (PEG in place) Integumentary: normal Extremities: no cyanosis, no edema, pulses normal Neurologic: pupils equal and round, CN II-XII normal, unable to assess, other (RUExt weakness) Psychiatric: anxious CBC and BMP: 03/21/20 04:34 03/21/20 04:34 ABG, PT/INR, D-dimer: ABG ABG pH 7.505 (7.320-7.450) H 03/18/20 04:43 POC ABG pCO2 34.6 mmHg (32.0-48.0) 03/18/20 04:43 ABG pCO2 36.8 mm Hg 03/16/20 20:45 POC ABG pO2 132.0 mmHg (83-108) H 03/18/20 04:43 ABG pO2 122.9 mm Hg (80.0-90.0) H 03/16/20 20:45 POC ABG HCO3 26.7 03/18/20 04:43 ABG O2 Saturation 98.5 % (95.0-99.0) 03/16/20 20:45 PT/INR, D-dimer PT 15.9 Sec. (12.2-14.9) H 03/04/20 02:59 INR 1.29 (0.87-1.13) H 03/04/20 02:59 D-Dimer 1415.56 ng/mlDDU (0-234) H 03/03/20 22:00 Abnormal lab findings: Abnormal Labs 03/03/20 03/03/20 03/03/20 01:10 21:51 21:51 WBC 15.5 H RBC Hgb Hct 35.3 L RDW 17.9 H Lymph % (Auto) 11.[address] [place] % (Auto) Seg Neutrophils % 83.7 H Seg Neuts % (Manual) Lymphocytes % (Manual) Seg Neutrophils # 13.0 H Seg Neutrophils # Man Lymphocytes # (Manual) Monocytes # (Manual) PT INR D-Dimer ABG pH POC ABG pCO2 POC ABG pO2 ABG pO2 173.4 H ABG HCO3 26.7 H ABG O2 Saturation 99.1 H ABG Hemoglobin 11.6 L ABG Sodium ABG Potassium ABG Chloride ABG Glucose Sodium 151 H Potassium Chloride 114.4 H Carbon Dioxide BUN 29 H Creatinine 0.6 L Glucose 116 H POC Glucose Ferritin Lactate Dehydrogenase C-Reactive Protein Total Protein 8.9 H Albumin 2.8 L Arterial Blood Glucose Ur Specific [place] Urine WBC (Auto) 03/03/20 03/03/20 03/03/20 22:00 22:00 22:00 WBC RBC Hgb Hct RDW Lymph % (Auto) [place] % (Auto) Seg Neutrophils % Seg Neuts % (Manual) Lymphocytes % (Manual) Seg Neutrophils # Seg Neutrophils # Man Lymphocytes # (Manual) Monocytes # (Manual) PT INR D-Dimer 1415.56 H ABG pH POC ABG pCO2 POC ABG pO2 ABG pO2 ABG HCO3 ABG O2 Saturation ABG Hemoglobin ABG Sodium ABG Potassium ABG Chloride ABG Glucose Sodium Potassium Chloride Carbon Dioxide BUN Creatinine Glucose 106 H POC Glucose Ferritin 522.1 H Lactate Dehydrogenase 240 H C-Reactive Protein 17.20 H Total Protein Albumin Arterial Blood Glucose Ur Specific [place] Urine WBC (Auto) 03/03/20 03/04/20 03/04/20 22:15 02:59 02:59 WBC 15.2 H RBC 3.56 L Hgb 10.9 L Hct 33.4 L RDW 17.5 H Lymph % (Auto) [place] % (Auto) Seg Neutrophils % Seg Neuts % (Manual) 93.0 H Lymphocytes % (Manual) 5.0 L Seg Neutrophils # Seg Neutrophils # Man 14.1 H Lymphocytes # (Manual) 0.8 L Monocytes # (Manual) PT 15.9 H INR 1.29 H D-Dimer ABG pH POC ABG pCO2 POC ABG pO2 ABG pO2 ABG HCO3 ABG O2 Saturation ABG Hemoglobin ABG Sodium ABG Potassium ABG Chloride ABG Glucose Sodium Potassium Chloride Carbon Dioxide BUN Creatinine Glucose POC Glucose Ferritin Lactate Dehydrogenase C-Reactive Protein Total Protein Albumin Arterial Blood Glucose Ur Specific [place] 1.031 H Urine WBC (Auto) 8.0 H 03/04/20 03/04/20 03/05/20 02:59 16:16 04:00 WBC RBC Hgb Hct RDW Lymph % (Auto) [place] % (Auto) Seg Neutrophils % Seg Neuts % (Manual) Lymphocytes % (Manual) Seg Neutrophils # Seg Neutrophils # Man Lymphocytes # (Manual) Monocytes # (Manual) PT INR D-Dimer ABG pH 7.451 H 7.498 H POC ABG pCO2 POC ABG pO2 ABG pO2 102.9 H 122.7 H ABG HCO3 ABG O2 Saturation ABG Hemoglobin 12.7 L 10.2 L ABG Sodium ABG Potassium ABG Chloride ABG Glucose Sodium 152 H Potassium Chloride 116.9 H Carbon Dioxide BUN 27 H Creatinine 0.4 L Glucose 127 H POC Glucose Ferritin Lactate Dehydrogenase C-Reactive Protein Total Protein Albumin Arterial Blood Glucose Ur Specific [place] Urine WBC (Auto) 03/05/20 03/05/20 03/05/20 05:32 05:32 18:05 WBC 17.4 H RBC 3.35 L Hgb 10.3 L Hct 31.4 L RDW 17.2 H Lymph % (Auto) 10.[address] [place] % (Auto) Seg Neutrophils % 85.3 H Seg Neuts % (Manual) Lymphocytes % (Manual) Seg Neutrophils # 14.8 H Seg Neutrophils # Man Lymphocytes # (Manual) Monocytes # (Manual) PT INR D-Dimer ABG pH POC ABG pCO2 POC ABG pO2 ABG pO2 ABG HCO3 ABG O2 Saturation ABG Hemoglobin ABG Sodium ABG Potassium ABG Chloride ABG Glucose Sodium 150 H 146 H Potassium 3.4 L Chloride 115.0 H 113.7 H Carbon Dioxide 20 L BUN 29 H Creatinine 0.5 L 0.3 L Glucose POC Glucose Ferritin Lactate Dehydrogenase C-Reactive Protein Total Protein Albumin Arterial Blood Glucose Ur Specific [place] Urine WBC (Auto) 03/06/20 03/06/20 03/06/20 04:16 04:16 05:50 WBC 11.2 H RBC 3.05 L Hgb 9.2 L Hct 28.2 L RDW 16.8 H Lymph % (Auto) [place] % (Auto) Seg Neutrophils % 80.0 H Seg Neuts % (Manual) Lymphocytes % (Manual) Seg Neutrophils # 9.0 H Seg Neutrophils # Man Lymphocytes # (Manual) Monocytes # (Manual) PT INR D-Dimer ABG pH POC ABG pCO2 POC ABG pO2 ABG pO2 194.8 H ABG HCO3 ABG O2 Saturation 99.3 H ABG Hemoglobin 9.2 L ABG Sodium ABG Potassium ABG Chloride ABG Glucose Sodium 146 H Potassium 3.1 L Chloride 111.3 H Carbon Dioxide BUN Creatinine 0.4 L Glucose POC Glucose Ferritin Lactate Dehydrogenase C-Reactive Protein Total Protein Albumin Arterial Blood Glucose Ur Specific [place] Urine WBC (Auto) 03/07/20 03/07/20 03/07/20 02:54 05:47 06:03 WBC RBC 3.21 L Hgb 9.8 L Hct 28.6 L RDW 16.6 H Lymph % (Auto) [place] % (Auto) Seg Neutrophils % 80.1 H Seg Neuts % (Manual) Lymphocytes % (Manual) Seg Neutrophils # 7.8 H Seg Neutrophils # Man Lymphocytes # (Manual) Monocytes # (Manual) PT INR D-Dimer ABG pH 7.504 H POC ABG pCO2 30.5 L POC ABG pO2 ABG pO2 ABG HCO3 ABG O2 Saturation ABG Hemoglobin 10.4 L ABG Sodium ABG Potassium 2.7 L ABG Chloride 109.0 H ABG Glucose Sodium Potassium Chloride Carbon Dioxide BUN Creatinine Glucose POC Glucose 126 H Ferritin Lactate Dehydrogenase C-Reactive Protein Total Protein Albumin Arterial Blood Glucose Ur Specific [place] Urine WBC (Auto) 03/07/20 03/07/20 03/07/20 06:03 17:22 17:25 WBC RBC Hgb Hct RDW Lymph % (Auto) [place] % (Auto) Seg Neutrophils % Seg Neuts % (Manual) Lymphocytes % (Manual) Seg Neutrophils # Seg Neutrophils # Man Lymphocytes # (Manual) Monocytes # (Manual) PT INR D-Dimer ABG pH POC ABG pCO2 POC ABG pO2 ABG pO2 ABG HCO3 ABG O2 Saturation ABG Hemoglobin ABG Sodium ABG Potassium ABG Chloride ABG Glucose Sodium Potassium 2.7 L* Chloride 107.6 H Carbon Dioxide 21 L BUN 8 L Creatinine 0.3 L Glucose 129 H POC Glucose 119 H 125 H Ferritin Lactate Dehydrogenase C-Reactive Protein Total Protein Albumin Arterial Blood Glucose Ur Specific [place] Urine WBC (Auto) 03/07/20 03/08/20 03/08/20 23:30 04:30 16:56 WBC RBC Hgb Hct RDW Lymph % (Auto) [place] % (Auto) Seg Neutrophils % Seg Neuts % (Manual) Lymphocytes % (Manual) Seg Neutrophils # Seg Neutrophils # Man Lymphocytes # (Manual) Monocytes # (Manual) PT INR D-Dimer ABG pH 7.513 H POC ABG pCO2 POC ABG pO2 ABG pO2 170.6 H ABG HCO3 ABG O2 Saturation 99.2 H ABG Hemoglobin 8.8 L ABG Sodium ABG Potassium ABG Chloride ABG Glucose Sodium Potassium Chloride Carbon Dioxide BUN Creatinine Glucose POC Glucose 107 H 108 H Ferritin Lactate Dehydrogenase C-Reactive Protein Total Protein Albumin Arterial Blood Glucose Ur Specific [place] Urine WBC (Auto) 03/08/20 03/09/20 03/09/20 21:07 04:17 11:08 WBC RBC Hgb Hct RDW Lymph % (Auto) [place] % (Auto) Seg Neutrophils % Seg Neuts % (Manual) Lymphocytes % (Manual) Seg Neutrophils # Seg Neutrophils # Man Lymphocytes # (Manual) Monocytes # (Manual) PT INR D-Dimer ABG pH 7.498 H POC ABG pCO2 POC ABG pO2 125.5 H ABG pO2 ABG HCO3 ABG O2 Saturation ABG Hemoglobin ABG Sodium ABG Potassium ABG Chloride 109.0 H ABG Glucose 103 H Sodium Potassium Chloride 109.4 H Carbon Dioxide BUN 6 L Creatinine 0.3 L Glucose 121 H POC Glucose 123 H Ferritin Lactate Dehydrogenase C-Reactive Protein Total Protein Albumin 2.8 L Arterial Blood Glucose 103 H Ur Specific [place] Urine WBC (Auto) 03/10/20 03/10/20 03/10/20 04:46 08:10 08:10 WBC RBC Hgb 9.5 L Hct 28.6 L RDW Lymph % (Auto) [place] % (Auto) Seg Neutrophils % Seg Neuts % (Manual) Lymphocytes % (Manual) Seg Neutrophils # Seg Neutrophils # Man Lymphocytes # (Manual) Monocytes # (Manual) PT INR D-Dimer ABG pH 7.533 H POC ABG pCO2 POC ABG pO2 128.2 H ABG pO2 ABG HCO3 ABG O2 Saturation ABG Hemoglobin 10.0 L ABG Sodium ABG Potassium ABG Chloride ABG Glucose 110 H Sodium Potassium Chloride Carbon Dioxide BUN 5 L Creatinine 0.2 L Glucose POC Glucose Ferritin Lactate Dehydrogenase C-Reactive Protein Total Protein Albumin Arterial Blood Glucose 110 H Ur Specific [place] Urine WBC (Auto) 03/10/20 03/10/20 03/11/20 17:22 23:24 05:07 WBC RBC Hgb Hct RDW Lymph % (Auto) [place] % (Auto) Seg Neutrophils % Seg Neuts % (Manual) Lymphocytes % (Manual) Seg Neutrophils # Seg Neutrophils # Man Lymphocytes # (Manual) Monocytes # (Manual) PT INR D-Dimer ABG pH POC ABG pCO2 POC ABG pO2 ABG pO2 ABG HCO3 ABG O2 Saturation ABG Hemoglobin ABG Sodium ABG Potassium ABG Chloride ABG Glucose Sodium Potassium Chloride Carbon Dioxide BUN Creatinine Glucose POC Glucose 108 H 189 H 217 H Ferritin Lactate Dehydrogenase C-Reactive Protein Total Protein Albumin Arterial Blood Glucose Ur Specific [place] Urine WBC (Auto) 03/11/20 03/11/20 03/12/20 11:28 23:25 05:14 WBC RBC Hgb Hct RDW Lymph % (Auto) [place] % (Auto) Seg Neutrophils % Seg Neuts % (Manual) Lymphocytes % (Manual) Seg Neutrophils # Seg Neutrophils # Man Lymphocytes # (Manual) Monocytes # (Manual) PT INR D-Dimer ABG pH POC ABG pCO2 POC ABG pO2 ABG pO2 ABG HCO3 ABG O2 Saturation ABG Hemoglobin ABG Sodium ABG Potassium ABG Chloride ABG Glucose Sodium Potassium Chloride Carbon Dioxide BUN Creatinine Glucose POC Glucose 212 H 152 H 193 H Ferritin Lactate Dehydrogenase C-Reactive Protein Total Protein Albumin Arterial Blood Glucose Ur Specific [place] Urine WBC (Auto) 03/12/20 03/12/20 03/12/20 11:58 17:11 23:27 WBC RBC Hgb Hct RDW Lymph % (Auto) [place] % (Auto) Seg Neutrophils % Seg Neuts % (Manual) Lymphocytes % (Manual) Seg Neutrophils # Seg Neutrophils # Man Lymphocytes # (Manual) Monocytes # (Manual) PT INR D-Dimer ABG pH POC ABG pCO2 POC ABG pO2 ABG pO2 ABG HCO3 ABG O2 Saturation ABG Hemoglobin ABG Sodium ABG Potassium ABG Chloride ABG Glucose Sodium Potassium Chloride Carbon Dioxide BUN Creatinine Glucose POC Glucose 142 H 141 H 175 H Ferritin Lactate Dehydrogenase C-Reactive Protein Total Protein Albumin Arterial Blood Glucose Ur Specific [place] Urine WBC (Auto) 03/13/20 03/13/20 03/13/20 05:33 12:04 23:20 WBC RBC Hgb Hct RDW Lymph % (Auto) [place] % (Auto) Seg Neutrophils % Seg Neuts % (Manual) Lymphocytes % (Manual) Seg Neutrophils # Seg Neutrophils # Man Lymphocytes # (Manual) Monocytes # (Manual) PT INR D-Dimer ABG pH POC ABG pCO2 POC ABG pO2 ABG pO2 ABG HCO3 ABG O2 Saturation ABG Hemoglobin ABG Sodium ABG Potassium ABG Chloride ABG Glucose Sodium Potassium Chloride Carbon Dioxide BUN Creatinine Glucose POC Glucose 184 H 182 H 132 H Ferritin Lactate Dehydrogenase C-Reactive Protein Total Protein Albumin Arterial Blood Glucose Ur Specific [place] Urine WBC (Auto) 03/14/20 03/14/20 03/14/20 05:16 07:08 07:08 WBC 14.7 H RBC 3.30 L Hgb 9.8 L Hct 30.3 L RDW 17.3 H Lymph % (Auto) [place] % (Auto) Seg Neutrophils % Seg Neuts % (Manual) 87.0 H Lymphocytes % (Manual) 7.0 L Seg Neutrophils # Seg Neutrophils # Man 12.8 H Lymphocytes # (Manual) 1.0 L Monocytes # (Manual) 0.9 H PT INR D-Dimer ABG pH POC ABG pCO2 POC ABG pO2 ABG pO2 ABG HCO3 ABG O2 Saturation ABG Hemoglobin ABG Sodium ABG Potassium ABG Chloride ABG Glucose Sodium Potassium Chloride Carbon Dioxide BUN Creatinine 0.3 L Glucose 111 H POC Glucose 116 H Ferritin Lactate Dehydrogenase C-Reactive Protein Total Protein Albumin 2.5 L Arterial Blood Glucose Ur Specific [place] Urine WBC (Auto) 03/14/20 03/15/20 03/15/20 16:58 04:56 04:56 WBC RBC 3.31 L Hgb 10.2 L Hct 30.2 L RDW 17.5 H Lymph % (Auto) [place] % (Auto) Seg Neutrophils % Seg Neuts % (Manual) 94.0 H Lymphocytes % (Manual) 4.0 L Seg Neutrophils # Seg Neutrophils # Man 9.7 H Lymphocytes # (Manual) 0.4 L Monocytes # (Manual) PT INR D-Dimer ABG pH POC ABG pCO2 POC ABG pO2 ABG pO2 ABG HCO3 ABG O2 Saturation ABG Hemoglobin ABG Sodium ABG Potassium ABG Chloride ABG Glucose Sodium Potassium Chloride Carbon Dioxide BUN Creatinine 0.3 L Glucose 189 H POC Glucose 134 H Ferritin Lactate Dehydrogenase C-Reactive Protein Total Protein Albumin Arterial Blood Glucose Ur Specific [place] Urine WBC (Auto) 03/15/20 03/15/20 03/16/20 05:26 17:46 05:23 WBC RBC Hgb Hct RDW Lymph % (Auto) [place] % (Auto) Seg Neutrophils % Seg Neuts % (Manual) Lymphocytes % (Manual) Seg Neutrophils # Seg Neutrophils # Man Lymphocytes # (Manual) Monocytes # (Manual) PT INR D-Dimer ABG pH POC ABG pCO2 POC ABG pO2 ABG pO2 ABG HCO3 ABG O2 Saturation ABG Hemoglobin ABG Sodium ABG Potassium ABG Chloride ABG Glucose Sodium Potassium Chloride Carbon Dioxide BUN Creatinine Glucose POC Glucose 159 H 110 H 149 H Ferritin Lactate Dehydrogenase C-Reactive Protein Total Protein Albumin Arterial Blood Glucose Ur Specific [place] Urine WBC (Auto) 03/16/20 03/16/20 03/16/20 12:05 20:45 23:27 WBC RBC Hgb Hct RDW Lymph % (Auto) [place] % (Auto) Seg Neutrophils % Seg Neuts % (Manual) Lymphocytes % (Manual) Seg Neutrophils # Seg Neutrophils # Man Lymphocytes # (Manual) Monocytes # (Manual) PT INR D-Dimer ABG pH 7.478 H POC ABG pCO2 POC ABG pO2 ABG pO2 122.9 H ABG HCO3 26.6 H ABG O2 Saturation ABG Hemoglobin 10.1 L ABG Sodium ABG Potassium ABG Chloride ABG Glucose Sodium Potassium Chloride Carbon Dioxide BUN Creatinine Glucose POC Glucose 116 H 114 H Ferritin Lactate Dehydrogenase C-Reactive Protein Total Protein Albumin Arterial Blood Glucose Ur Specific [place] Urine WBC (Auto) 03/17/20 03/17/20 03/17/20 05:42 11:51 18:19 WBC RBC Hgb Hct RDW Lymph % (Auto) [place] % (Auto) Seg Neutrophils % Seg Neuts % (Manual) Lymphocytes % (Manual) Seg Neutrophils # Seg Neutrophils # Man Lymphocytes # (Manual) Monocytes # (Manual) PT INR D-Dimer ABG pH POC ABG pCO2 POC ABG pO2 ABG pO2 ABG HCO3 ABG O2 Saturation ABG Hemoglobin ABG Sodium ABG Potassium ABG Chloride ABG Glucose Sodium Potassium Chloride Carbon Dioxide BUN Creatinine Glucose POC Glucose 160 H 113 H 115 H Ferritin Lactate Dehydrogenase C-Reactive Protein Total Protein Albumin Arterial Blood Glucose Ur Specific [place] Urine WBC (Auto) 03/17/20 03/18/20 03/18/20 23:36 04:43 05:40 WBC RBC Hgb Hct RDW Lymph % (Auto) [place] % (Auto) Seg Neutrophils % Seg Neuts % (Manual) Lymphocytes % (Manual) Seg Neutrophils # Seg Neutrophils # Man Lymphocytes # (Manual) Monocytes # (Manual) PT INR D-Dimer ABG pH 7.505 H POC ABG pCO2 POC ABG pO2 132.0 H ABG pO2 ABG HCO3 ABG O2 Saturation ABG Hemoglobin 11.2 L ABG Sodium 135.4 L ABG Potassium ABG Chloride ABG Glucose 154 H Sodium Potassium Chloride Carbon Dioxide BUN Creatinine Glucose POC Glucose 108 H 152 H Ferritin Lactate Dehydrogenase C-Reactive Protein Total Protein Albumin Arterial Blood Glucose 154 H Ur Specific [place] Urine WBC (Auto) 03/18/20 03/19/20 03/19/20 23:06 05:42 08:28 WBC RBC Hgb Hct RDW Lymph % (Auto) [place] % (Auto) Seg Neutrophils % Seg Neuts % (Manual) Lymphocytes % (Manual) Seg Neutrophils # Seg Neutrophils # Man Lymphocytes # (Manual) Monocytes # (Manual) PT INR D-Dimer ABG pH POC ABG pCO2 POC ABG pO2 ABG pO2 ABG HCO3 ABG O2 Saturation ABG Hemoglobin ABG Sodium ABG Potassium ABG Chloride ABG Glucose Sodium Potassium Chloride Carbon Dioxide BUN Creatinine 0.3 L Glucose 108 H POC Glucose 109 H 168 H Ferritin Lactate Dehydrogenase C-Reactive Protein Total Protein Albumin Arterial Blood Glucose Ur Specific [place] Urine WBC (Auto) 03/19/20 03/20/20 03/20/20 23:29 05:30 11:42 WBC RBC Hgb Hct RDW Lymph % (Auto) [place] % (Auto) Seg Neutrophils % Seg Neuts % (Manual) Lymphocytes % (Manual) Seg Neutrophils # Seg Neutrophils # Man Lymphocytes # (Manual) Monocytes # (Manual) PT INR D-Dimer ABG pH POC ABG pCO2 POC ABG pO2 ABG pO2 ABG HCO3 ABG O2 Saturation ABG Hemoglobin ABG Sodium ABG Potassium ABG Chloride ABG Glucose Sodium Potassium Chloride Carbon Dioxide BUN Creatinine Glucose POC Glucose 117 H 171 H 113 H Ferritin Lactate Dehydrogenase C-Reactive Protein Total Protein Albumin Arterial Blood Glucose Ur Specific [place] Urine WBC (Auto) 03/21/20 03/21/20 03/21/20 04:34 04:34 17:38 WBC RBC Hgb 11.5 L Hct 34.5 L RDW 17.6 H Lymph % (Auto) 37.[address] [place] % (Auto) 8.7 H Seg Neutrophils % Seg Neuts % (Manual) Lymphocytes % (Manual) Seg Neutrophils # Seg Neutrophils # Man Lymphocytes # (Manual) Monocytes # (Manual) PT INR D-Dimer ABG pH POC ABG pCO2 POC ABG pO2 ABG pO2 ABG HCO3 ABG O2 Saturation ABG Hemoglobin ABG Sodium ABG Potassium ABG Chloride ABG Glucose Sodium Potassium Chloride Carbon Dioxide BUN 22 H Creatinine 0.2 L Glucose POC Glucose 110 H Ferritin Lactate Dehydrogenase C-Reactive Protein Total Protein Albumin Arterial Blood Glucose Ur Specific [place] Urine WBC (Auto) 03/21/20 23:26 WBC RBC Hgb Hct RDW Lymph % (Auto) [place] % (Auto) Seg Neutrophils % Seg Neuts % (Manual) Lymphocytes % (Manual) Seg Neutrophils # Seg Neutrophils # Man Lymphocytes # (Manual) Monocytes # (Manual) PT INR D-Dimer ABG pH POC ABG pCO2 POC ABG pO2 ABG pO2 ABG HCO3 ABG O2 Saturation ABG Hemoglobin ABG Sodium ABG Potassium ABG Chloride ABG Glucose Sodium Potassium Chloride Carbon Dioxide BUN Creatinine Glucose POC Glucose 112 H Ferritin Lactate Dehydrogenase C-Reactive Protein Total Protein Albumin Arterial Blood Glucose Ur Specific [place] Urine WBC (Auto) Allied health notes reviewed: nursing
--- NOTE | 2020-03-22 13:56 | Discharge Summary ---
Providers - Providers Date of Admission: 03/03/20 23:35 Date of discharge: 03/23/20 Attending physician: ANA LAW 03/03/20 22:32 Consult to Dietitian/Nutrition [CONS] Routine Physician Instructions: Reason For Exam: Reason for Consult: Evaluate nutritional intake 03/03/20 22:34 Consult to Physician [CONS] Routine Comment: Consulting Provider: DANIEL BONILLA Physician Instructions: Reason For Exam: pui. pna 03/03/20 23:43 Consult to Physician [CONS] Routine Comment: Consulting Provider: NIKKI FERNANDEZ Physician Instructions: Reason For Exam: icu 03/04/20 12:24 Consult to Dietitian/Nutrition [CONS] Routine Physician Instructions: Reason For Exam: Reason for Consult: Write/Manage Tube Feeding 03/06/20 14:57 Consult to Dietitian/Nutrition [CONS] Routine Physician Instructions: Assess nutrtn needs, initiate, modify, manage TF Reason For Exam: Reason for Consult: Write/Manage Tube Feeding Reason for Consult: Write/Manage Tube Feeding 03/07/20 06:11 Consult to Wound/ET Nurse [CONS] Routine Reason For Exam: wound eval 03/12/20 13:35 Midline [Consult to PICC Line RN] [CONS] Routine Reason For Exam: hard stick Type Line:: Midline Primary care physician: HARITHA STALEY Hospitalization Condition: Critical Hospital course: HPI 64-year-old male with known history of traumatic brain injury, hypertension, history of trach placement and PEG placement resident of [facility] brought into the emergency room today by EMS for low oxygen saturation fever. Patient was said to have developed fever and also became hypoxic this evening. Most of the history was gotten from the ER staff as patient is unable to give any history. Work-up in the emergency room today reveals bilateral pneumonia on chest x-ray. He is also found to have a UTI. Patient has been admitted for a pneumonia with possible COVID-19, dehydration, urinary tract infection and sepsis. Hospital course 03/05/2020 -Patient is admitted for acute on chronic respiratory failure and currently on and requiring mechanical ventilation. Continue with IV antibiotics for UTI and sepsis. COVID-19 test is done and is negative. Phone Representative consulted. Continue with the current management. 03/06/2020 -Patient is admitted for acute on chronic respiratory failure. Patient is on trach and vent. Patient is on IV cefepime and vancomycin per ID recommendation. Pulmonary consulted for vent and trach management. 03/07/2020; continue ventilatory support Wean off vent as tolerated, consults and recommendations noted and appreciated 03/08/2020; We will closely monitor the patient and adjust the management as needed Plan of care reviewed with the patient and his nurse MRSA pneumonia, vancomycin, contact isolation 03/09/2020; patient remains on ventilatory support, on IV antibiotics Wean off vent as tolerated, moving consultant recommendations noted and appreciated Plan of care reviewed with the patient's nurse and case management 03/10/2020; chest x-ray mild improvement, remains on ventilatory support, wean off ventilator as tolerated Contact isolation for MRSA pneumonia, continue vancomycin 03/11/2020; patient remains on ventilatory support, MRSA pneumonia on vancomycin for total 8 days and de-escalate to Bactrim DS Per ID recommendations. Contact isolation, restraint for agitation as needed 03/12/2020; we will wean off ventilator as tolerated , patient is more alert and awake today Tracheostomy on vent, on contact isolation MRSA on vancomycin, will follow consultants recommendations 03/13/2020; patient completed 8 days of vancomycin, currently on Bactrim DS, remains on ventilatory support, will wean off ventilator as tolerated We will restrain restraint patient as needed 03/14/2020; unable to wean, being off ventilator as tolerated, contact isolation for MRSA pneumonia 03/15/20. patient remains on ventilatory support, MRSA pneumonia on vancomycin for total 8 days (completed) and de-escalate to Bactrim DS Per ID recommendations. Contact isolation, restraint for agitation as needed 03/16/2020. Patient with PSV trialtidal volume 500 14/6 with an FiO2 of 28%. T-piece trials as tolerated. Monitor off antibiotics per ID recommendations. Continue IV steroids and wean per pulmonary recommendations. 03/17/2020. Patient currently tolerating T-piece trial. Continue O2 to maintain sats greater than 92%. Continue to monitor off antibiotics. Continue IV steroids per pulmonary recommendations. 03/18/2020. Continue T-piece trials as tolerated. Continue O2 to maintain sats greater than 92%. Monitor off antibiotics per ID recommendations. Wean steroids per pulmonary. 03/19/2020. Continue T-piece trials as tolerated. Continue O2 to maintain sats greater than 92%. Monitor off antibiotics per ID recommendations. Wean steroids per pulmonary. 03/20/2020. Patient currently tolerating T-piece with oxygen 5 L/min FiO2 28%. Follow-up repeat chest x-ray today. Continue trach care, secretion control and airway management. Continue Pulmicort and Brovana. Steroids have been tapered to 40 mg IV every 12 hours. Continue per pulmonary recommendations. Continue Seroquel for sedation/agitation as needed. 03/21/2020. Patient currently tolerating T-piece/T-tube with oxygen 5 L/min FiO2 28%. Repeat chest x-ray showed improvement in the bibasilar pulmonary opacities. Continue trach care, secretion control and airway management. Continue Pulmicort and Brovana. Steroids have been tapered to 40 mg IV every 12 hours. Continue per pulmonary recommendations. Continue Seroquel for sedation/agitation as needed. Continue tube feedings via G-tube with aspiration precautions. Antibiotics completed for MRSA pneumonia per ID. 03/22/2020. He is stable and will continue steroid taper. COVID-19 test is pending prior to DC. He will be discharged to LTAC facility for pulmonary rehab and PT 03/23. Patient will be discharged to LTAC today. COVID-19 test is negative. Disposition: [id number]/[id number] [facility] - Discharge Diagnoses (1) Hypernatremia Status: Acute (2) Hypoxia Status: Acute (3) Person under investigation for COVID-19 Status: Acute (4) Respiratory failure Status: Acute Qualifiers: Chronicity: acute Respiratory failure complication: hypoxia Qualified Code(s): J96.01 - Acute respiratory failure with hypoxia (5) Sepsis Status: Acute Qualifiers: Sepsis type: sepsis due to unspecified organism Sepsis acute organ dysfunction status: with acute organ dysfunction Severe sepsis acute organ dysfunction type: acute respiratory failure Acute respiratory failure type: with hypoxia Severe sepsis shock status: without septic shock Qualified Code(s): A41.9 - Sepsis, unspecified organism; R65.20 - Severe sepsis without septic shock; J96.01 - Acute respiratory failure with hypoxia Core Measure Documentation - Palliative Care Palliative Care/ Comfort Measures: Not Applicable - Core Measures Any of the following diagnoses?: none Exam - Constitutional Vitals: Temp Pulse Resp BP Pulse Ox 97.5 F L 53 L 18 103/54 100 03/22/20 07:55 03/22/20 07:55 03/22/20 07:55 03/22/20 07:55 03/22/20 07:55 General appearance: Present: no acute distress, well-nourished - EENT Eyes: Present: PERRL ENT: hearing intact, clear oral mucosa - Neck Neck: Present: supple, normal ROM - Respiratory Respiratory effort: normal Respiratory: bilateral: CTA - Cardiovascular Heart Sounds: Present: S1 & S2. Absent: rub, click - Extremities Extremities: pulses symmetrical, No edema Peripheral Pulses: within normal limits - Abdominal General gastrointestinal: Present: soft, non-tender, non-distended, normal bowel sounds Male genitourinary: Present: normal - Integumentary Integumentary: Present: clear, warm, dry - Musculoskeletal Musculoskeletal: gait normal, strength equal bilaterally - Psychiatric Psychiatric: appropriate mood/affect, intact judgment & insight - Neurologic Neurologic: CNII-XII intact, moves all extremities Plan Activity: advance as tolerated Additional Instructions: Continue steroids taper as ordered. Follow up with pulmonology in the office in 2 weeks Follow up with: HARITHA STALEY MD [Primary Care Provider] - 3-5 Days Prescriptions: Arformoterol Nebu [Brovana Nebu] 15 mcg IH Q12HRT 30 Days ml predniSONE [Deltasone] 40 mg PO QDAY #10 tab Budesonide [Pulmicort Respules] 0.5 mg IH Q12HRT 30 Days nebu QUEtiapine [SEROquel] 100 mg PO BID #60 tablet
[2020-03-22] MEDS: ENOXAPARIN 40 MG/0.4 ML INJ SUB-Q SCH (21:44)
[2020-03-23] MEDS: methylPREDNISolone Sod Succinate 40 MG/1 ML INJ IV SCH (05:33)
[2020-03-23] MEDS: BUDESONIDE 0.5 MG/2 ML NEBU IH SCH (08:58)
[2020-03-23] MEDS: ARFORMOTEROL 15 MCG/2 ML NEBU IH SCH (08:58)
[2020-03-23] MEDS: IPRATROPIUM/ALBUTEROL SULFATE 3 ML AMPUL.NEB IH SCH ×2 (08:58→14:58)
[2020-03-23 10:39] VITALS: BP 122/70
--- NOTE | 2020-03-23 11:27 | Progress Note ---
Assessment and Plan Assessment and plan: --PUI; COVID-19 test negative on 03/04/2020 --acute on chronic hypoxic respiratory failure; Patient has chronic tracheostomy now on ventilatory support Continue nebulizers ,wean off ventilator as tolerated . Pulmonary critical following. --MRSA pneumonia; respiratory and contact isolation Completed vancomycin, continue Bactrim DS per ID --Bilateral pneumonia; Continue current antibiotics, follow cultures Ventilatory support, pulmonary and ID following --Severe hypokalemia; resolved Closely monitor lecture lites --Hypernatremia; resolved Gentle hydration supportive care --Sepsis secondary to bilateral pneumonia/UTI Continue current antibiotics, follow cultures, ID following --Severe malnutrition; hypoalbuminemia Supportive care, nutrition consult --DVT prophylaxis;Lovenox --Restrain the patient for agitation --Full CODE STATUS; We will closely monitor the patient and adjust the management as needed 03/05/2020 -Patient is admitted for acute on chronic respiratory failure and currently on and requiring mechanical ventilation. Continue with IV antibiotics for UTI and sepsis. COVID-19 test is done and is negative. Hair Spinner consulted. Continue with the current management. 03/06/2020 -Patient is admitted for acute on chronic respiratory failure. Patient is on trach and vent. Patient is on IV cefepime and vancomycin per ID recommendation. Pulmonary consulted for vent and trach management. 03/07/2020; continue ventilatory support Wean off vent as tolerated, consults and recommendations noted and appreciated 03/08/2020; We will closely monitor the patient and adjust the management as needed Plan of care reviewed with the patient and his nurse MRSA pneumonia, vancomycin, contact isolation 03/09/2020; patient remains on ventilatory support, on IV antibiotics Wean off vent as tolerated, dairy nutrition consultant recommendations noted and appreciated Plan of care reviewed with the patient's nurse and case management 03/10/2020; chest x-ray mild improvement, remains on ventilatory support, wean off ventilator as tolerated Contact isolation for MRSA pneumonia, continue vancomycin 03/11/2020; patient remains on ventilatory support, MRSA pneumonia on vancomycin for total 8 days and de-escalate to Bactrim DS Per ID recommendations. Contact isolation, restraint for agitation as needed 03/12/2020; we will wean off ventilator as tolerated , patient is more alert and awake today Tracheostomy on vent, on contact isolation MRSA on vancomycin, will follow consultants recommendations 03/13/2020; patient completed 8 days of vancomycin, currently on Bactrim DS, remains on ventilatory support, will wean off ventilator as tolerated We will restrain restraint patient as needed 03/14/2020; unable to wean, being off ventilator as tolerated, contact isolation for MRSA pneumonia 03/15/20. patient remains on ventilatory support, MRSA pneumonia on vancomycin for total 8 days (completed) and de-escalate to Bactrim DS Per ID recommendations. Contact isolation, restraint for agitation as needed 03/16/2020. Patient with PSV trialtidal volume 500 19/09 with an FiO2 of 28%. T -piece trials as tolerated. Monitor off antibiotics per ID recommendations. Continue IV steroids and wean per pulmonary recommendations. 03/17/2020. Patient currently tolerating T-piece trial. Continue O2 to maintain sats greater than 92%. Continue to monitor off antibiotics. Continue IV steroids per pulmonary recommendations. 03/18/2020. Continue T-piece trials as tolerated. Continue O2 to maintain sats greater than 92%. Monitor off antibiotics per ID recommendations. Wean steroids per pulmonary. 03/19/2020. Continue T-piece trials as tolerated. Continue O2 to maintain sats greater than 92%. Monitor off antibiotics per ID recommendations. Wean steroids per pulmonary. 03/20/2020. Patient currently tolerating T-piece with oxygen 5 L/min FiO2 28%. Follow-up repeat chest x-ray today. Continue trach care, secretion control and airway management. Continue Pulmicort and Brovana. Steroids have been tapered to 40 mg IV every 12 hours. Continue per pulmonary recommendations. Continue Seroquel for sedation/agitation as needed. 03/21/2020. Patient currently tolerating T-piece/T-tube with oxygen 5 L/min FiO2 28%. Repeat chest x-ray showed improvement in the bibasilar pulmonary opacities. Continue trach care, secretion control and airway management. Continue Pulmicort and Brovana. Steroids have been tapered to 40 mg IV every 12 hours. Continue per pulmonary recommendations. Continue Seroquel for sedation/agitation as needed. Continue tube feedings via G-tube with aspiration precautions. Antibiotics completed for MRSA pneumonia per ID. 03/22. Covid test required prior to transfer to LTAC. Continue steroids, Pulmicort and Brovana. Maintain aspiration precautions and continue feedings via G-tube. - Patient Problems (1) Hypernatremia Current Visit: Yes Status: Acute (2) Hypoxia Current Visit: Yes Status: Acute (3) Person under investigation for COVID-19 Current Visit: Yes Status: Acute (4) Respiratory failure Current Visit: Yes Status: Acute Qualifiers: Chronicity: acute Respiratory failure complication: hypoxia Qualified Code(s): J96.01 - Acute respiratory failure with hypoxia (5) Sepsis Current Visit: Yes Status: Acute Qualifiers: Sepsis type: sepsis due to unspecified organism Sepsis acute organ dysfunction status: with acute organ dysfunction Severe sepsis acute organ dysfunction type: acute respiratory failure Acute respiratory failure type: with hypoxia Severe sepsis shock status: without septic shock Qualified Code(s): A41.9 - Sepsis, unspecified organism; R65.20 - Severe sepsis without septic shock; J96.01 - Acute respiratory failure with hypoxia History Interval history: No overnight events Hospitalist Physical - Physical exam Narrative exam: VITAL SIGNS: Reviewed. GENERAL: Awake HEAD: No signs of head trauma. EYES: Pupils are equal. Extraocular motions intact. MOUTH: Oropharynx is normal. NECK: No adenopathy, no JVD. CHEST: Chest with diminished breath sounds bilaterally. No wheezes, rales, or rhonchi. CARDIAC: normal S1 and S2, without murmurs, gallops, or rubs. ABDOMEN: Soft, non tender and non distended. No rebound or guarding, and no masses palpated. Bowel Sounds normal. MUSCULOSKELETAL: No edema NEUROLOGIC EXAM: Alert and oriented x3. No focal neurologic deficits SKIN: No obvious lesions - Constitutional Vitals: Temp Pulse Resp BP Pulse Ox 97.5 F L 51 L 18 122/70 96 03/23/20 09:19 03/23/20 09:19 03/23/20 09:19 03/23/20 09:19 03/23/20 10:00 Results - Labs CBC & Chem 7: 03/21/20 04:34 03/21/20 04:34 Labs: Laboratory Last Values WBC 7.7 K/mm3 (4.5-11.0) 03/21/20 04:34 RBC 3.80 M/mm3 (3.65-5.03) 03/21/20 04:34 Hgb 11.5 gm/dl (11.8-15.2) L 03/21/20 04:34 Hct 34.5 % (35.5-45.6) L 03/21/20 04:34 MCV 91 fl (84-94) 03/21/20 04:34 MCH 30 pg (28-32) 03/21/20 04:34 MCHC 33 % (32-34) 03/21/20 04:34 RDW 17.6 % (13.2-15.2) H 03/21/20 04:34 Plt Count 302 K/mm3 (140-440) 03/21/20 04:34 Lymph % (Auto) 37.4 % (13.4-35.0) H 03/21/20 04:34 [place] % (Auto) 8.7 % (0.0-7.3) H 03/21/20 04:34 Eos % (Auto) 0.2 % (0.0-4.3) 03/21/20 04:34 Baso % (Auto) 0.0 % (0.0-1.8) 03/21/20 04:34 Lymph # (Auto) 2.9 K/mm3 (1.2-5.4) 03/21/20 04:34 [place] # (Auto) 0.7 K/mm3 (0.0-0.8) 03/21/20 04:34 Eos # (Auto) 0.0 K/mm3 (0.0-0.4) 03/21/20 04:34 Baso # (Auto) 0.0 K/mm3 (0.0-0.1) 03/21/20 04:34 Add Manual Diff Complete 03/15/20 04:56 Total Counted 100 03/15/20 04:56 Seg Neutrophils % 53.7 % (40.0-70.0) 03/21/20 04:34 Seg Neuts % (Manual) 94.0 % (40.0-70.0) H 03/15/20 04:56 Band Neutrophils % 0 % 03/15/20 04:56 Lymphocytes % (Manual) 4.0 % (13.4-35.0) L 03/15/20 04:56 Reactive Lymphs % (Man) 0 % 03/15/20 04:56 Monocytes % (Manual) 2.0 % (0.0-7.3) 03/15/20 04:56 Eosinophils % (Manual) 0 % (0.0-4.3) 03/15/20 04:56 Basophils % (Manual) 0 % (0.0-1.8) 03/15/20 04:56 Metamyelocytes % 0 % 03/15/20 04:56 Myelocytes % 0 % 03/15/20 04:56 Promyelocytes % 0 % 03/15/20 04:56 Blast Cells % 0 % 03/15/20 04:56 Nucleated RBC % Not Reportable 03/15/20 04:56 Seg Neutrophils # 4.1 K/mm3 (1.8-7.7) 03/21/20 04:34 Seg Neutrophils # Man 9.7 K/mm3 (1.8-7.7) H 03/15/20 04:56 Band Neutrophils # 0.0 K/mm3 03/15/20 04:56 Lymphocytes # (Manual) 0.4 K/mm3 (1.2-5.4) L 03/15/20 04:56 Abs React Lymphs (Man) 0.0 K/mm3 03/15/20 04:56 Monocytes # (Manual) 0.2 K/mm3 (0.0-0.8) 03/15/20 04:56 Eosinophils # (Manual) 0.0 K/mm3 (0.0-0.4) 03/15/20 04:56 Basophils # (Manual) 0.0 K/mm3 (0.0-0.1) 03/15/20 04:56 Metamyelocytes # 0.0 K/mm3 03/15/20 04:56 Myelocytes # 0.0 K/mm3 03/15/20 04:56 Promyelocytes # 0.0 K/mm3 03/15/20 04:56 Blast Cells # 0.0 K/mm3 03/15/20 04:56 WBC Morphology Not Reportable 03/15/20 04:56 Hypersegmented Neuts Not Reportable 03/15/20 04:56 Hyposegmented Neuts Not Reportable 03/15/20 04:56 Hypogranular Neuts Not Reportable 03/15/20 04:56 Smudge Cells Not Reportable 03/15/20 04:56 Toxic Granulation Not Reportable 03/15/20 04:56 Toxic Vacuolation Not Reportable 03/15/20 04:56 Dohle Bodies Not Reportable 03/15/20 04:56 Pelger-Huet Anomaly Not Reportable 03/15/20 04:56 Mike Rods Not Reportable 03/15/20 04:56 Platelet Estimate Consistent w auto 03/15/20 04:56 Clumped Platelets Not Reportable 03/15/20 04:56 Plt Clumps, EDTA Not Reportable 03/15/20 04:56 Large Platelets Not Reportable 03/15/20 04:56 Giant Platelets Not Reportable 03/15/20 04:56 Platelet Satelliting Not Reportable 03/15/20 04:56 Plt Morphology Comment Not Reportable 03/15/20 04:56 RBC Morphology Not Reportable 03/15/20 04:56 Dimorphic RBCs Not Reportable 03/15/20 04:56 Polychromasia Not Reportable 03/15/20 04:56 Hypochromasia Not Reportable 03/15/20 04:56 Poikilocytosis Not Reportable 03/15/20 04:56 Anisocytosis Not Reportable 03/15/20 04:56 Microcytosis Not Reportable 03/15/20 04:56 Macrocytosis Not Reportable 03/15/20 04:56 Spherocytes Not Reportable 03/15/20 04:56 Pappenheimer Bodies Not Reportable 03/15/20 04:56 Sickle Cells Not Reportable 03/15/20 04:56 Target Cells Rare 03/15/20 04:56 Tear Drop Cells Not Reportable 03/15/20 04:56 Ovalocytes Not Reportable 03/15/20 04:56 Helmet Cells Not Reportable 03/15/20 04:56 [place]-Blackgum Bodies Not Reportable 03/15/20 04:56 [place] Rings Not Reportable 03/15/20 04:56 Marcos Cells Not Reportable 03/15/20 04:56 Bite Cells Not Reportable 03/15/20 04:56 Crenated Cell Not Reportable 03/15/20 04:56 Elliptocytes Not Reportable 03/15/20 04:56 Acanthocytes (Spur) Not Reportable 03/15/20 04:56 Rouleaux Not Reportable 03/15/20 04:56 Hemoglobin C Crystals Not Reportable 03/15/20 04:56 Schistocytes Not Reportable 03/15/20 04:56 Malaria parasites Not Reportable 03/15/20 04:56 Branden Bodies Not Reportable 03/15/20 04:56 Hem Pathologist Commnt No 03/15/20 04:56 PT 15.9 Sec. (12.2-14.9) H 03/04/20 02:59 INR 1.29 (0.87-1.13) H 03/04/20 02:59 D-Dimer 1415.56 ng/mlDDU (0-234) H 03/03/20 22:00 ABG pH 7.505 (7.320-7.450) H 03/18/20 04:43 POC ABG pCO2 34.6 mmHg (32.0-48.0) 03/18/20 04:43 ABG pCO2 36.8 mm Hg 03/16/20 20:45 POC ABG pO2 132.0 mmHg (83-108) H 03/18/20 04:43 ABG pO2 122.9 mm Hg (80.0-90.0) H 03/16/20 20:45 POC ABG HCO3 26.7 03/18/20 04:43 ABG HCO3 26.6 mmol/L (20.0-26.0) H 03/16/20 20:45 ABG O2 Saturation 98.5 % (95.0-99.0) 03/16/20 20:45 ABG O2 Content 14.0 (0.0-44) 03/16/20 20:45 POC ABG Base Excess 3.7 03/18/20 04:43 ABG Base Excess 3.0 mmol/L (-2.0-3.0) 03/16/20 20:45 ABG Hemoglobin 11.2 (12.0-17.5) L 03/18/20 04:43 ABG Carboxyhemoglobin 1.0 % (0.0-5.0) 03/16/20 20:45 ABG Methemoglobin 0.5 % (0.0-1.5) 03/16/20 20:45 ABG Sodium 135.4 mmol/L (136.0-145.0) L 03/18/20 04:43 ABG Potassium 4.1 mmol/L (3.40-4.50) 03/18/20 04:43 ABG Chloride 103.0 mmol/L (98-107) 03/18/20 04:43 ABG Glucose 154 mg/dL (65-95) H 03/18/20 04:43 Oxyhemoglobin 97.0 % (95.0-99.0) 03/16/20 20:45 FiO2 30 03/18/20 04:43 Sodium 138 mmol/L (137-145) 03/21/20 04:34 Potassium 3.8 mmol/L (3.6-5.0) 03/21/20 04:34 Chloride 102.3 mmol/L (98-107) 03/21/20 04:34 Carbon Dioxide 26 mmol/L (22-30) 03/21/20 04:34 Anion Gap 14 mmol/L 03/21/20 04:34 BUN 22 mg/dL (9-20) H 03/21/20 04:34 Creatinine 0.2 mg/dL (0.8-1.3) L 03/21/20 04:34 Estimated GFR > 60 ml/min 03/21/20 04:34 BUN/Creatinine Ratio 110 % 03/21/20 04:34 Glucose 97 mg/dL (75-100) 03/21/20 04:34 POC Glucose 116 mg/dL (70-105) H 03/23/20 05:15 Lactic Acid 0.80 mmol/L (0.7-2.0) 03/04/20 02:59 Calcium 8.8 mg/dL (8.4-10.2) 03/21/20 04:34 Magnesium 2.00 mg/dL (1.7-2.3) 03/14/20 07:08 Ferritin 522.1 ng/mL (30.0-300.0) H 03/03/20 22:00 Total Bilirubin 0.20 mg/dL (0.1-1.2) 03/14/20 07:08 AST 20 units/L (5-40) 03/14/20 07:08 ALT 34 units/L (7-56) 03/14/20 07:08 Alkaline Phosphatase 82 units/L (35-129) 03/14/20 07:08 Lactate Dehydrogenase 240 units/L (91-180) H 03/03/20 22:00 C-Reactive Protein 17.20 mg/dL (0.00-1.30) H 03/03/20 22:00 Total Protein 7.0 g/dL (6.3-8.2) 03/14/20 07:08 Albumin 2.5 g/dL (3.9-5) L 03/14/20 07:08 Albumin/Globulin Ratio 0.6 % 03/14/20 07:08 Procalcitonin 0.31 ng/mL (<0.15) 03/03/20 22:00 Arterial Blood Glucose 154 mg/dL (65-95) H 03/18/20 04:43 Arterial Blood Ionized Calcium 4.8 mg/dL (4.6-5.3) 03/18/20 04:43 Urine Color Bing (Yellow) 03/03/20 22:15 Urine Turbidity Clear (Clear) 03/03/20 22:15 Urine pH 5.0 (5.0-7.0) 03/03/20 22:15 Ur Specific [place] 1.031 (1.003-1.030) H 03/03/20 22:15 Urine Protein 30 mg/dl mg/dL (Negative) 03/03/20 22:15 Urine Glucose (UA) Neg mg/dL (Negative) 03/03/20 22:15 Urine Ketones Neg mg/dL (Negative) 03/03/20 22:15 Urine Blood Neg (Negative) 03/03/20 22:15 Urine Nitrite Neg (Negative) 03/03/20 22:15 Urine Bilirubin Neg (Negative) 03/03/20 22:15 Urine Urobilinogen 4.0 mg/dL (<2.0) 03/03/20 22:15 Ur Leukocyte Esterase Tr (Negative) 03/03/20 22:15 Urine WBC (Auto) 8.0 /HPF (0.0-6.0) H 03/03/20 22:15 Urine RBC (Auto) 2.0 /HPF (0.0-6.0) 03/03/20 22:15 U Epithel Cells (Auto) 1.0 /HPF (0-13.0) 03/03/20 22:15 Urine Bacteria (Auto) 1+ /HPF (Negative) 03/03/20 22:15 Hyaline Casts 1 /LPF 03/03/20 22:15 Urine Mucus 1+ /HPF 03/03/20 22:15 Vancomycin Trough 9.0 ug/mL (5.0-20.0) 03/06/20 20:15 Coronavirus (PCR) Negative (Negative) 03/22/20 Unknown Sarah/IV: Voiding Method Incontinent IV Catheter Type [Right Upper INT / Saline Lock arm] IV Catheter Type [Left Upper Mid-line arm] IV Catheter Type [Right Peripheral IV Forearm] Active Medications - Current Medications Current Medications: Generic Name Dose Route Start Last Admin Trade Name Freq PRN Reason Stop Dose Admin Albuterol/Ipratropium 1 ampul 03/12/20 08:00 03/23/20 08:58 Duoneb *Not For Prn Use* IH Not Given TIDRT [facility] Lipase/Protease/Amylase 1 each 03/06/20 14:54 Pancreazkandice Cheney 10,500 Unit FEEDTUBE PRN PRN For Clogged Feeding Tube Arformoterol Tartrate 15 mcg 03/10/20 20:00 03/23/20 08:58 Brovana Nebu IH 15 mcg Q12HRT KESHAWN Administration Budesonide 0.5 mg 03/10/20 20:00 03/23/20 08:58 Pulmicort IH 0.5 mg Q12HRT KESHAWN Administration Enoxaparin Sodium 40 mg 03/04/20 22:00 03/22/20 21:44 Enoxaparin SUB-Q 40 mg QDAY@2200 KESHAWN Administration Protocol Famotidine 20 mg 03/09/20 11:00 03/22/20 21:45 Pepcid FEEDTUBE 20 mg BID KESHAWN Administration Fentanyl 25 mcg 03/17/20 10:00 03/20/20 11:17 Duragesic TD 25 mcg Q3D KESHAWN Administration Hydrophilic Ointment 1 applic 03/03/20 22:31 03/06/20 08:19 Vaseline Lip Therapy TP 1 applic Q2HR PRN Administration Dry Lips Magnesium Hydroxide 30 ml 03/03/20 23:45 Milk Of Magnesia PO Q4H PRN Constipation Methylprednisolone Sodium Succinate 40 mg 03/19/20 18:30 03/23/20 05:33 Methylprednisolone Sod Succinate 40 Mg/1 Ml Inj IV 40 mg Q12H KESHAWN Administration Morphine Sulfate 2 mg 03/03/20 23:45 03/14/20 09:09 Morphine IV 2 mg Q4H PRN Administration Pain, Moderate (4-6) Multi-Ingred Cream/Lotion/Oil/Oint 1 applic 03/03/20 22:31 Artificial Tears Ophth Oint OU Q4HR PRN Dry Eye(s) Ondansetron HCl 4 mg 03/03/20 23:45 03/05/20 16:12 Zofran IV 4 mg Q8H PRN Administration Nausea And Vomiting Quetiapine Fumarate 100 mg 03/12/20 22:00 03/22/20 21:45 Seroquel PO 100 mg BID KESHAWN Administration Simethicone 80 mg 03/11/20 09:39 03/14/20 21:46 Mylicon PO 80 mg Q6H PRN Administration Gas pain Simple Syrup 15 ml 03/06/20 14:54 Simple Syrup FEEDTUBE PRN PRN Hypoglycemia Simple Syrup 30 ml 03/06/20 14:54 Simple Syrup FEEDTUBE PRN PRN Hypoglycemia Sodium Bicarbonate 325 mg 03/06/20 14:54 Sodium Bicarbonate FEEDTUBE PRN PRN For Clogged Feeding Tube Sodium Chloride 10 ml 03/04/20 10:00 03/22/20 21:44 Sodium Chloride Flush Syringe 10 Ml IV 10 ml BID KESHAWN Administration Sodium Chloride 10 ml 03/03/20 23:45 Sodium Chloride Flush Syringe 10 Ml IV PRN PRN LINE FLUSH Nutrition/Malnutrition Assess - Dietary Evaluation Nutrition/Malnutrition Findings: Nutrition Notes Start: 03/04/20 09:15 Freq: Status: Active Protocol: Document 03/18/20 10:51 AB (Rec: 03/18/20 10:58 AB [id number]) Co-Sign 03/18/20 10:51 LM Nutrition Notes Initial or Follow up Reassessment Current Diagnosis Sepsis,Hypertension, Respiratory Failure Other Pertinent Diagnosis Bilat pneu, sacral wound, TBI Current Diet Vital AF 1.2 at 70 ml/hr Labs/Tests Reviewed Pertinent Medications Reviewed Height 6 ft 3 in Weight 63.4 kg [place] Body Weight (kg) 89.09 BMI 17.4 Weight Status Underweight Subjective/Other Information F/U TF tolerance and diarrhea. Per RN, pt is continuing to have loose BMs. Percent of energy/protein needs met: 91%/100% Burn Absent Trauma Absent GI Symptoms Diarrhea Current % PO Negligible Minimum of two criteria No Reduced Plastic Surgery Assistant Strength Measurably Reduced (severe) #2 Nutrition Diagnosis Increased nutrient needs ( specify in comment below) Comments: Protein Diagnosis Progress(for reassessment Continues documentation) #1 Nutrition Diagnosis Inadequate oral intake Diagnosis Progress(for reassessment Continues documentation) Is patient on ventilator? Yes Is Patient Ambulatory and/or Out of Bed No REE-([place]-St. Jeor-confined to bed) 1816.932 Kcal/Kg value to use for calculation 35 Approximate Energy Requirements Using 2219 kcal/Kg Calculation Used for Recommendations Kcal/kg Additional Notes Pro needs 1.25-2g/k-127g/ day Fluid needs 1ml/kcal Nutrition Intervention Change Diet Order: Continue current TF order Nutrition Support: Vital AF 1.2 at 70 ml/hr Flush with 125 ml q4h Kcal 2,016 Protein (gm) 126 Fluid (mL) 1,363 Goal #1 TF tolerance Goal #2 TF (at goal rate) to meet 100% energy and pro needs Goal #3 Wt maintenance and/or gain Goal #4 Wound healing Anticipated Discharge Needs: Continue TF Follow-Up By: 03/23/20 Additional Comments F/U for TF tolerance, diarrhea
[2020-03-23] MEDS: fentaNYL 25 MCG/HR PATCH 72HR TD SCH (11:55)
[2020-03-23] MEDS: QUEtiapine 100 MG TAB PO SCH (11:55)
[2020-03-23] MEDS: FAMOTIDINE 20 MG TAB FEEDTUBE SCH (11:55)
--- NOTE | 2020-03-23 14:24 | Progress Note ---
Assessment and Plan Patient awake, weak and emaciated. Patient is on T tube, FIO2 28% and O2 saturation running 100%. Patient afebrile. No leukocytosis. Patients chest xray done 03/19/20 reported Minimally improved patchy bibasilar pulmonary opacities since prior exam dated 03/10/2020. Tracheostomy tube in appropriate position. Gastrostomy tube in stable position. Left midline catheter tubing with its tip projected over the axillary region. Not much change in patients general condition. Patient is on I/V solumedrol, albuterol/atrovent aerosol treatments. S/C Lovenox and famotidine. - Patient Problems (1) Respiratory failure Current Visit: Yes Status: Acute Qualifiers: Chronicity: acute Respiratory failure complication: hypoxia Qualified Code(s): J96.01 - Acute respiratory failure with hypoxia Plan to address problem: Patient S/P tracheostomy. Patient is on T tube, FIO2 28%. Continue I/V solumedrol. Albuterol/atrovent aerosol treatments. S/C Lovenox. Famotidine. (2) Person under investigation for COVID-19 Current Visit: Yes Status: Acute Plan to address problem: [place] virus PCR reported negative. (3) Pneumonia Current Visit: Yes Status: Acute Qualifiers: Pneumonia type: due to unspecified organism Laterality: bilateral Lung location: unspecified part of lung Qualified Code(s): J18.9 - Pneumonia, unspecified organism Plan to address problem: Patient was treated with ceftriaxone and Zithromax. (4) Hypernatremia Current Visit: Yes Status: Acute Plan to address problem: Improved. Patients recent na+ 138. (5) Sepsis Current Visit: Yes Status: Acute Qualifiers: Sepsis type: sepsis due to unspecified organism Sepsis acute organ dysfunction status: with acute organ dysfunction Severe sepsis acute organ dysfunction type: acute respiratory failure Acute respiratory failure type: with hypoxia Severe sepsis shock status: without septic shock Qualified Code(s): A41.9 - Sepsis, unspecified organism; R65.20 - Severe sepsis without septic shock; J96.01 - Acute respiratory failure with hypoxia Plan to address problem: Patient was treated with ceftriaxone and zithromax. (6) UTI (urinary tract infection) Current Visit: Yes Status: Acute Qualifiers: Urinary tract infection type: acute cystitis Hematuria presence: with hematuria Qualified Code(s): N30.01 - Acute cystitis with hematuria Plan to address problem: Patient was on ceftriaxone. Subjective Date of service: 03/23/20 Principal diagnosis: Severe Sepsis; PNA; Ac on ch hypoxemic resp failure; [id number] Interval history: Patient awake, weak and emaciated. Patient is on T tube, FIO2 28% and O2 saturation running 100%. Patient afebrile. No leukocytosis. Patients chest xray done 03/19/20 reported Minimally improved patchy bibasilar pulmonary opacities since prior exam dated 03/10/2020. Tracheostomy tube in appropriate position. Gastrostomy tube in stable position. Left midline catheter tubing with its tip projected over the axillary region. Not much change in patients general condition. Patient is on I/V solumedrol, albuterol/atrovent aerosol treatments. S/C Lovenox and famotidine. Objective Vital Signs - 12hr 03/23/20 03/23/20 03/23/20 05:16 08:58 09:19 Temperature 98.0 F 97.5 F L Pulse Rate 51 L 51 L Pulse Rate [ 72 Anterior Bilateral Throughout] Respiratory 20 18 Rate Respiratory 18 Rate [Anterior Bilateral Throughout] Blood Pressure 124/65 122/70 O2 Sat by Pulse 100 100 Oximetry O2 Sat by Pulse 96 Oximetry [ Assessment] 03/23/20 10:00 Temperature Pulse Rate Pulse Rate [ Anterior Bilateral Throughout] Respiratory Rate Respiratory Rate [Anterior Bilateral Throughout] Blood Pressure O2 Sat by Pulse 96 Oximetry O2 Sat by Pulse Oximetry [ Assessment] Constitutional: alert, other (trach to ATP, helmet ) Eyes: non-icteric ENT: oropharynx moist Neck: supple, no lymphadenopathy, no JVD Effort: mildly labored Ascultation: Bilateral: diminished breath sounds, rhonchi, other (prolonged exp phase) Percussion: Bilateral: not dull Cardiovascular: regular rate and rhythm, other (S1,S2) Gastrointestinal: normoactive bowel sounds, soft, non-tender, non-distended, other (PEG in place) Integumentary: normal Extremities: no cyanosis, no edema, pulses normal Neurologic: non-focal exam (grossly, moves around in bed), pupils equal and round Psychiatric: mood appropriate CBC and BMP: 03/21/20 04:34 03/21/20 04:34 ABG, PT/INR, D-dimer: ABG ABG pH 7.505 (7.320-7.450) H 03/18/20 04:43 POC ABG pCO2 34.6 mmHg (32.0-48.0) 03/18/20 04:43 ABG pCO2 36.8 mm Hg 03/16/20 20:45 POC ABG pO2 132.0 mmHg (83-108) H 03/18/20 04:43 ABG pO2 122.9 mm Hg (80.0-90.0) H 03/16/20 20:45 POC ABG HCO3 26.7 03/18/20 04:43 ABG O2 Saturation 98.5 % (95.0-99.0) 03/16/20 20:45 PT/INR, D-dimer PT 15.9 Sec. (12.2-14.9) H 03/04/20 02:59 INR 1.29 (0.87-1.13) H 03/04/20 02:59 D-Dimer 1415.56 ng/mlDDU (0-234) H 03/03/20 22:00 Abnormal lab findings: Abnormal Labs 03/03/20 03/03/20 03/03/20 01:10 21:51 21:51 WBC 15.5 H RBC Hgb Hct 35.3 L RDW 17.9 H Lymph % (Auto) 11.6 L [place] % (Auto) Seg Neutrophils % 83.7 H Seg Neuts % (Manual) Lymphocytes % (Manual) Seg Neutrophils # 13.0 H Seg Neutrophils # Man Lymphocytes # (Manual) Monocytes # (Manual) PT INR D-Dimer ABG pH POC ABG pCO2 POC ABG pO2 ABG pO2 173.4 H ABG HCO3 26.7 H ABG O2 Saturation 99.1 H ABG Hemoglobin 11.6 L ABG Sodium ABG Potassium ABG Chloride ABG Glucose Sodium 151 H Potassium Chloride 114.4 H Carbon Dioxide BUN 29 H Creatinine 0.6 L Glucose 116 H POC Glucose Ferritin Lactate Dehydrogenase C-Reactive Protein Total Protein 8.9 H Albumin 2.8 L Arterial Blood Glucose Ur Specific Tony Urine WBC (Auto) 03/03/20 03/03/20 03/03/20 22:00 22:00 22:00 WBC RBC Hgb Hct RDW Lymph % (Auto) [place] % (Auto) Seg Neutrophils % Seg Neuts % (Manual) Lymphocytes % (Manual) Seg Neutrophils # Seg Neutrophils # Man Lymphocytes # (Manual) Monocytes # (Manual) PT INR D-Dimer 1415.56 H ABG pH POC ABG pCO2 POC ABG pO2 ABG pO2 ABG HCO3 ABG O2 Saturation ABG Hemoglobin ABG Sodium ABG Potassium ABG Chloride ABG Glucose Sodium Potassium Chloride Carbon Dioxide BUN Creatinine Glucose 106 H POC Glucose Ferritin 522.1 H Lactate Dehydrogenase 240 H C-Reactive Protein 17.20 H Total Protein Albumin Arterial Blood Glucose Ur Specific Tony Urine WBC (Auto) 03/03/20 03/04/20 03/04/20 22:15 02:59 02:59 WBC 15.2 H RBC 3.56 L Hgb 10.9 L Hct 33.4 L RDW 17.5 H Lymph % (Auto) [place] % (Auto) Seg Neutrophils % Seg Neuts % (Manual) 93.0 H Lymphocytes % (Manual) 5.0 L Seg Neutrophils # Seg Neutrophils # Man 14.1 H Lymphocytes # (Manual) 0.8 L Monocytes # (Manual) PT 15.9 H INR 1.29 H D-Dimer ABG pH POC ABG pCO2 POC ABG pO2 ABG pO2 ABG HCO3 ABG O2 Saturation ABG Hemoglobin ABG Sodium ABG Potassium ABG Chloride ABG Glucose Sodium Potassium Chloride Carbon Dioxide BUN Creatinine Glucose POC Glucose Ferritin Lactate Dehydrogenase C-Reactive Protein Total Protein Albumin Arterial Blood Glucose Ur Specific Tony 1.031 H Urine WBC (Auto) 8.0 H 03/04/20 03/04/20 03/05/20 02:59 16:16 04:00 WBC RBC Hgb Hct RDW Lymph % (Auto) [place] % (Auto) Seg Neutrophils % Seg Neuts % (Manual) Lymphocytes % (Manual) Seg Neutrophils # Seg Neutrophils # Man Lymphocytes # (Manual) Monocytes # (Manual) PT INR D-Dimer ABG pH 7.451 H 7.498 H POC ABG pCO2 POC ABG pO2 ABG pO2 102.9 H 122.7 H ABG HCO3 ABG O2 Saturation ABG Hemoglobin 12.7 L 10.2 L ABG Sodium ABG Potassium ABG Chloride ABG Glucose Sodium 152 H Potassium Chloride 116.9 H Carbon Dioxide BUN 27 H Creatinine 0.4 L Glucose 127 H POC Glucose Ferritin Lactate Dehydrogenase C-Reactive Protein Total Protein Albumin Arterial Blood Glucose Ur Specific Tony Urine WBC (Auto) 03/05/20 03/05/20 03/05/20 05:32 05:32 18:05 WBC 17.4 H RBC 3.35 L Hgb 10.3 L Hct 31.4 L RDW 17.2 H Lymph % (Auto) 10.9 L [place] % (Auto) Seg Neutrophils % 85.3 H Seg Neuts % (Manual) Lymphocytes % (Manual) Seg Neutrophils # 14.8 H Seg Neutrophils # Man Lymphocytes # (Manual) Monocytes # (Manual) PT INR D-Dimer ABG pH POC ABG pCO2 POC ABG pO2 ABG pO2 ABG HCO3 ABG O2 Saturation ABG Hemoglobin ABG Sodium ABG Potassium ABG Chloride ABG Glucose Sodium 150 H 146 H Potassium 3.4 L Chloride 115.0 H 113.7 H Carbon Dioxide 20 L BUN 29 H Creatinine 0.5 L 0.3 L Glucose POC Glucose Ferritin Lactate Dehydrogenase C-Reactive Protein Total Protein Albumin Arterial Blood Glucose Ur Specific Tony Urine WBC (Auto) 03/06/20 03/06/20 03/06/20 04:16 04:16 05:50 WBC 11.2 H RBC 3.05 L Hgb 9.2 L Hct 28.2 L RDW 16.8 H Lymph % (Auto) [place] % (Auto) Seg Neutrophils % 80.0 H Seg Neuts % (Manual) Lymphocytes % (Manual) Seg Neutrophils # 9.0 H Seg Neutrophils # Man Lymphocytes # (Manual) Monocytes # (Manual) PT INR D-Dimer ABG pH POC ABG pCO2 POC ABG pO2 ABG pO2 194.8 H ABG HCO3 ABG O2 Saturation 99.3 H ABG Hemoglobin 9.2 L ABG Sodium ABG Potassium ABG Chloride ABG Glucose Sodium 146 H Potassium 3.1 L Chloride 111.3 H Carbon Dioxide BUN Creatinine 0.4 L Glucose POC Glucose Ferritin Lactate Dehydrogenase C-Reactive Protein Total Protein Albumin Arterial Blood Glucose Ur Specific Tony Urine WBC (Auto) 03/07/20 03/07/20 03/07/20 02:54 05:47 06:03 WBC RBC 3.21 L Hgb 9.8 L Hct 28.6 L RDW 16.6 H Lymph % (Auto) [place] % (Auto) Seg Neutrophils % 80.1 H Seg Neuts % (Manual) Lymphocytes % (Manual) Seg Neutrophils # 7.8 H Seg Neutrophils # Man Lymphocytes # (Manual) Monocytes # (Manual) PT INR D-Dimer ABG pH 7.504 H POC ABG pCO2 30.5 L POC ABG pO2 ABG pO2 ABG HCO3 ABG O2 Saturation ABG Hemoglobin 10.4 L ABG Sodium ABG Potassium 2.7 L ABG Chloride 109.0 H ABG Glucose Sodium Potassium Chloride Carbon Dioxide BUN Creatinine Glucose POC Glucose 126 H Ferritin Lactate Dehydrogenase C-Reactive Protein Total Protein Albumin Arterial Blood Glucose Ur Specific Tony Urine WBC (Auto) 03/07/20 03/07/20 03/07/20 06:03 17:22 17:25 WBC RBC Hgb Hct RDW Lymph % (Auto) [place] % (Auto) Seg Neutrophils % Seg Neuts % (Manual) Lymphocytes % (Manual) Seg Neutrophils # Seg Neutrophils # Man Lymphocytes # (Manual) Monocytes # (Manual) PT INR D-Dimer ABG pH POC ABG pCO2 POC ABG pO2 ABG pO2 ABG HCO3 ABG O2 Saturation ABG Hemoglobin ABG Sodium ABG Potassium ABG Chloride ABG Glucose Sodium Potassium 2.7 L* Chloride 107.6 H Carbon Dioxide 21 L BUN 8 L Creatinine 0.3 L Glucose 129 H POC Glucose 119 H 125 H Ferritin Lactate Dehydrogenase C-Reactive Protein Total Protein Albumin Arterial Blood Glucose Ur Specific Tony Urine WBC (Auto) 03/07/20 03/08/20 03/08/20 23:30 04:30 16:56 WBC RBC Hgb Hct RDW Lymph % (Auto) [place] % (Auto) Seg Neutrophils % Seg Neuts % (Manual) Lymphocytes % (Manual) Seg Neutrophils # Seg Neutrophils # Man Lymphocytes # (Manual) Monocytes # (Manual) PT INR D-Dimer ABG pH 7.513 H POC ABG pCO2 POC ABG pO2 ABG pO2 170.6 H ABG HCO3 ABG O2 Saturation 99.2 H ABG Hemoglobin 8.8 L ABG Sodium ABG Potassium ABG Chloride ABG Glucose Sodium Potassium Chloride Carbon Dioxide BUN Creatinine Glucose POC Glucose 107 H 108 H Ferritin Lactate Dehydrogenase C-Reactive Protein Total Protein Albumin Arterial Blood Glucose Ur Specific Tony Urine WBC (Auto) 03/08/20 03/09/20 03/09/20 21:07 04:17 11:08 WBC RBC Hgb Hct RDW Lymph % (Auto) [place] % (Auto) Seg Neutrophils % Seg Neuts % (Manual) Lymphocytes % (Manual) Seg Neutrophils # Seg Neutrophils # Man Lymphocytes # (Manual) Monocytes # (Manual) PT INR D-Dimer ABG pH 7.498 H POC ABG pCO2 POC ABG pO2 125.5 H ABG pO2 ABG HCO3 ABG O2 Saturation ABG Hemoglobin ABG Sodium ABG Potassium ABG Chloride 109.0 H ABG Glucose 103 H Sodium Potassium Chloride 109.4 H Carbon Dioxide BUN 6 L Creatinine 0.3 L Glucose 121 H POC Glucose 123 H Ferritin Lactate Dehydrogenase C-Reactive Protein Total Protein Albumin 2.8 L Arterial Blood Glucose 103 H Ur Specific Tony Urine WBC (Auto) 03/10/20 03/10/20 03/10/20 04:46 08:10 08:10 WBC RBC Hgb 9.5 L Hct 28.6 L RDW Lymph % (Auto) [place] % (Auto) Seg Neutrophils % Seg Neuts % (Manual) Lymphocytes % (Manual) Seg Neutrophils # Seg Neutrophils # Man Lymphocytes # (Manual) Monocytes # (Manual) PT INR D-Dimer ABG pH 7.533 H POC ABG pCO2 POC ABG pO2 128.2 H ABG pO2 ABG HCO3 ABG O2 Saturation ABG Hemoglobin 10.0 L ABG Sodium ABG Potassium ABG Chloride ABG Glucose 110 H Sodium Potassium Chloride Carbon Dioxide BUN 5 L Creatinine 0.2 L Glucose POC Glucose Ferritin Lactate Dehydrogenase C-Reactive Protein Total Protein Albumin Arterial Blood Glucose 110 H Ur Specific Tony Urine WBC (Auto) 03/10/20 03/10/20 03/11/20 17:22 23:24 05:07 WBC RBC Hgb Hct RDW Lymph % (Auto) [place] % (Auto) Seg Neutrophils % Seg Neuts % (Manual) Lymphocytes % (Manual) Seg Neutrophils # Seg Neutrophils # Man Lymphocytes # (Manual) Monocytes # (Manual) PT INR D-Dimer ABG pH POC ABG pCO2 POC ABG pO2 ABG pO2 ABG HCO3 ABG O2 Saturation ABG Hemoglobin ABG Sodium ABG Potassium ABG Chloride ABG Glucose Sodium Potassium Chloride Carbon Dioxide BUN Creatinine Glucose POC Glucose 108 H 189 H 217 H Ferritin Lactate Dehydrogenase C-Reactive Protein Total Protein Albumin Arterial Blood Glucose Ur Specific Tony Urine WBC (Auto) 03/11/20 03/11/20 03/12/20 11:28 23:25 05:14 WBC RBC Hgb Hct RDW Lymph % (Auto) [place] % (Auto) Seg Neutrophils % Seg Neuts % (Manual) Lymphocytes % (Manual) Seg Neutrophils # Seg Neutrophils # Man Lymphocytes # (Manual) Monocytes # (Manual) PT INR D-Dimer ABG pH POC ABG pCO2 POC ABG pO2 ABG pO2 ABG HCO3 ABG O2 Saturation ABG Hemoglobin ABG Sodium ABG Potassium ABG Chloride ABG Glucose Sodium Potassium Chloride Carbon Dioxide BUN Creatinine Glucose POC Glucose 212 H 152 H 193 H Ferritin Lactate Dehydrogenase C-Reactive Protein Total Protein Albumin Arterial Blood Glucose Ur Specific Tony Urine WBC (Auto) 03/12/20 03/12/20 03/12/20 11:58 17:11 23:27 WBC RBC Hgb Hct RDW Lymph % (Auto) [place] % (Auto) Seg Neutrophils % Seg Neuts % (Manual) Lymphocytes % (Manual) Seg Neutrophils # Seg Neutrophils # Man Lymphocytes # (Manual) Monocytes # (Manual) PT INR D-Dimer ABG pH POC ABG pCO2 POC ABG pO2 ABG pO2 ABG HCO3 ABG O2 Saturation ABG Hemoglobin ABG Sodium ABG Potassium ABG Chloride ABG Glucose Sodium Potassium Chloride Carbon Dioxide BUN Creatinine Glucose POC Glucose 142 H 141 H 175 H Ferritin Lactate Dehydrogenase C-Reactive Protein Total Protein Albumin Arterial Blood Glucose Ur Specific Tony Urine WBC (Auto) 03/13/20 03/13/20 03/13/20 05:33 12:04 23:20 WBC RBC Hgb Hct RDW Lymph % (Auto) [place] % (Auto) Seg Neutrophils % Seg Neuts % (Manual) Lymphocytes % (Manual) Seg Neutrophils # Seg Neutrophils # Man Lymphocytes # (Manual) Monocytes # (Manual) PT INR D-Dimer ABG pH POC ABG pCO2 POC ABG pO2 ABG pO2 ABG HCO3 ABG O2 Saturation ABG Hemoglobin ABG Sodium ABG Potassium ABG Chloride ABG Glucose Sodium Potassium Chloride Carbon Dioxide BUN Creatinine Glucose POC Glucose 184 H 182 H 132 H Ferritin Lactate Dehydrogenase C-Reactive Protein Total Protein Albumin Arterial Blood Glucose Ur Specific Tony Urine WBC (Auto) 03/14/20 03/14/20 03/14/20 05:16 07:08 07:08 WBC 14.7 H RBC 3.30 L Hgb 9.8 L Hct 30.3 L RDW 17.3 H Lymph % (Auto) [place] % (Auto) Seg Neutrophils % Seg Neuts % (Manual) 87.0 H Lymphocytes % (Manual) 7.0 L Seg Neutrophils # Seg Neutrophils # Man 12.8 H Lymphocytes # (Manual) 1.0 L Monocytes # (Manual) 0.9 H PT INR D-Dimer ABG pH POC ABG pCO2 POC ABG pO2 ABG pO2 ABG HCO3 ABG O2 Saturation ABG Hemoglobin ABG Sodium ABG Potassium ABG Chloride ABG Glucose Sodium Potassium Chloride Carbon Dioxide BUN Creatinine 0.3 L Glucose 111 H POC Glucose 116 H Ferritin Lactate Dehydrogenase C-Reactive Protein Total Protein Albumin 2.5 L Arterial Blood Glucose Ur Specific Tony Urine WBC (Auto) 03/14/20 03/15/20 03/15/20 16:58 04:56 04:56 WBC RBC 3.31 L Hgb 10.2 L Hct 30.2 L RDW 17.5 H Lymph % (Auto) [place] % (Auto) Seg Neutrophils % Seg Neuts % (Manual) 94.0 H Lymphocytes % (Manual) 4.0 L Seg Neutrophils # Seg Neutrophils # Man 9.7 H Lymphocytes # (Manual) 0.4 L Monocytes # (Manual) PT INR D-Dimer ABG pH POC ABG pCO2 POC ABG pO2 ABG pO2 ABG HCO3 ABG O2 Saturation ABG Hemoglobin ABG Sodium ABG Potassium ABG Chloride ABG Glucose Sodium Potassium Chloride Carbon Dioxide BUN Creatinine 0.3 L Glucose 189 H POC Glucose 134 H Ferritin Lactate Dehydrogenase C-Reactive Protein Total Protein Albumin Arterial Blood Glucose Ur Specific Tony Urine WBC (Auto) 03/15/20 03/15/20 03/16/20 05:26 17:46 05:23 WBC RBC Hgb Hct RDW Lymph % (Auto) [place] % (Auto) Seg Neutrophils % Seg Neuts % (Manual) Lymphocytes % (Manual) Seg Neutrophils # Seg Neutrophils # Man Lymphocytes # (Manual) Monocytes # (Manual) PT INR D-Dimer ABG pH POC ABG pCO2 POC ABG pO2 ABG pO2 ABG HCO3 ABG O2 Saturation ABG Hemoglobin ABG Sodium ABG Potassium ABG Chloride ABG Glucose Sodium Potassium Chloride Carbon Dioxide BUN Creatinine Glucose POC Glucose 159 H 110 H 149 H Ferritin Lactate Dehydrogenase C-Reactive Protein Total Protein Albumin Arterial Blood Glucose Ur Specific Tony Urine WBC (Auto) 03/16/20 03/16/20 03/16/20 12:05 20:45 23:27 WBC RBC Hgb Hct RDW Lymph % (Auto) [place] % (Auto) Seg Neutrophils % Seg Neuts % (Manual) Lymphocytes % (Manual) Seg Neutrophils # Seg Neutrophils # Man Lymphocytes # (Manual) Monocytes # (Manual) PT INR D-Dimer ABG pH 7.478 H POC ABG pCO2 POC ABG pO2 ABG pO2 122.9 H ABG HCO3 26.6 H ABG O2 Saturation ABG Hemoglobin 10.1 L ABG Sodium ABG Potassium ABG Chloride ABG Glucose Sodium Potassium Chloride Carbon Dioxide BUN Creatinine Glucose POC Glucose 116 H 114 H Ferritin Lactate Dehydrogenase C-Reactive Protein Total Protein Albumin Arterial Blood Glucose Ur Specific Tony Urine WBC (Auto) 03/17/20 03/17/20 03/17/20 05:42 11:51 18:19 WBC RBC Hgb Hct RDW Lymph % (Auto) [place] % (Auto) Seg Neutrophils % Seg Neuts % (Manual) Lymphocytes % (Manual) Seg Neutrophils # Seg Neutrophils # Man Lymphocytes # (Manual) Monocytes # (Manual) PT INR D-Dimer ABG pH POC ABG pCO2 POC ABG pO2 ABG pO2 ABG HCO3 ABG O2 Saturation ABG Hemoglobin ABG Sodium ABG Potassium ABG Chloride ABG Glucose Sodium Potassium Chloride Carbon Dioxide BUN Creatinine Glucose POC Glucose 160 H 113 H 115 H Ferritin Lactate Dehydrogenase C-Reactive Protein Total Protein Albumin Arterial Blood Glucose Ur Specific Tony Urine WBC (Auto) 03/17/20 03/18/20 03/18/20 23:36 04:43 05:40 WBC RBC Hgb Hct RDW Lymph % (Auto) [place] % (Auto) Seg Neutrophils % Seg Neuts % (Manual) Lymphocytes % (Manual) Seg Neutrophils # Seg Neutrophils # Man Lymphocytes # (Manual) Monocytes # (Manual) PT INR D-Dimer ABG pH 7.505 H POC ABG pCO2 POC ABG pO2 132.0 H ABG pO2 ABG HCO3 ABG O2 Saturation ABG Hemoglobin 11.2 L ABG Sodium 135.4 L ABG Potassium ABG Chloride ABG Glucose 154 H Sodium Potassium Chloride Carbon Dioxide BUN Creatinine Glucose POC Glucose 108 H 152 H Ferritin Lactate Dehydrogenase C-Reactive Protein Total Protein Albumin Arterial Blood Glucose 154 H Ur Specific Tony Urine WBC (Auto) 03/18/20 03/19/20 03/19/20 23:06 05:42 08:28 WBC RBC Hgb Hct RDW Lymph % (Auto) [place] % (Auto) Seg Neutrophils % Seg Neuts % (Manual) Lymphocytes % (Manual) Seg Neutrophils # Seg Neutrophils # Man Lymphocytes # (Manual) Monocytes # (Manual) PT INR D-Dimer ABG pH POC ABG pCO2 POC ABG pO2 ABG pO2 ABG HCO3 ABG O2 Saturation ABG Hemoglobin ABG Sodium ABG Potassium ABG Chloride ABG Glucose Sodium Potassium Chloride Carbon Dioxide BUN Creatinine 0.3 L Glucose 108 H POC Glucose 109 H 168 H Ferritin Lactate Dehydrogenase C-Reactive Protein Total Protein Albumin Arterial Blood Glucose Ur Specific Tony Urine WBC (Auto) 03/19/20 03/20/20 03/20/20 23:29 05:30 11:42 WBC RBC Hgb Hct RDW Lymph % (Auto) [place] % (Auto) Seg Neutrophils % Seg Neuts % (Manual) Lymphocytes % (Manual) Seg Neutrophils # Seg Neutrophils # Man Lymphocytes # (Manual) Monocytes # (Manual) PT INR D-Dimer ABG pH POC ABG pCO2 POC ABG pO2 ABG pO2 ABG HCO3 ABG O2 Saturation ABG Hemoglobin ABG Sodium ABG Potassium ABG Chloride ABG Glucose Sodium Potassium Chloride Carbon Dioxide BUN Creatinine Glucose POC Glucose 117 H 171 H 113 H Ferritin Lactate Dehydrogenase C-Reactive Protein Total Protein Albumin Arterial Blood Glucose Ur Specific Tony Urine WBC (Auto) 03/21/20 03/21/20 03/21/20 04:34 04:34 17:38 WBC RBC Hgb 11.5 L Hct 34.5 L RDW 17.6 H Lymph % (Auto) 37.4 H [place] % (Auto) 8.7 H Seg Neutrophils % Seg Neuts % (Manual) Lymphocytes % (Manual) Seg Neutrophils # Seg Neutrophils # Man Lymphocytes # (Manual) Monocytes # (Manual) PT INR D-Dimer ABG pH POC ABG pCO2 POC ABG pO2 ABG pO2 ABG HCO3 ABG O2 Saturation ABG Hemoglobin ABG Sodium ABG Potassium ABG Chloride ABG Glucose Sodium Potassium Chloride Carbon Dioxide BUN 22 H Creatinine 0.2 L Glucose POC Glucose 110 H Ferritin Lactate Dehydrogenase C-Reactive Protein Total Protein Albumin Arterial Blood Glucose Ur Specific Tony Urine WBC (Auto) 03/21/20 03/22/20 03/23/20 23:26 11:57 00:50 WBC RBC Hgb Hct RDW Lymph % (Auto) [place] % (Auto) Seg Neutrophils % Seg Neuts % (Manual) Lymphocytes % (Manual) Seg Neutrophils # Seg Neutrophils # Man Lymphocytes # (Manual) Monocytes # (Manual) PT INR D-Dimer ABG pH POC ABG pCO2 POC ABG pO2 ABG pO2 ABG HCO3 ABG O2 Saturation ABG Hemoglobin ABG Sodium ABG Potassium ABG Chloride ABG Glucose Sodium Potassium Chloride Carbon Dioxide BUN Creatinine Glucose POC Glucose 112 H 155 H 157 H Ferritin Lactate Dehydrogenase C-Reactive Protein Total Protein Albumin Arterial Blood Glucose Ur Specific Tony Urine WBC (Auto) 03/23/20 05:15 WBC RBC Hgb Hct RDW Lymph % (Auto) [place] % (Auto) Seg Neutrophils % Seg Neuts % (Manual) Lymphocytes % (Manual) Seg Neutrophils # Seg Neutrophils # Man Lymphocytes # (Manual) Monocytes # (Manual) PT INR D-Dimer ABG pH POC ABG pCO2 POC ABG pO2 ABG pO2 ABG HCO3 ABG O2 Saturation ABG Hemoglobin ABG Sodium ABG Potassium ABG Chloride ABG Glucose Sodium Potassium Chloride Carbon Dioxide BUN Creatinine Glucose POC Glucose 116 H Ferritin Lactate Dehydrogenase C-Reactive Protein Total Protein Albumin Arterial Blood Glucose Ur Specific Tony Urine WBC (Auto) Allied health notes reviewed: RT
== END 2020-03-23 12:30 | DRG 870 ==
LOC: ED 21:02 → CC1 23:35 → 4A 03-19 17:28
PROVIDERS: ADMIT Internal Medicine Geriatric Medicine; ATTEND Internal Medicine
PROC: 4A033R1 Measurement of Arterial Saturation, Peripheral, Percutaneous Approach (ICD-10-PCS; 2020-03-08)
PROC: 05HY33Z Insertion of Infusion Device into Upper Vein, Percutaneous Approach (ICD-10-PCS; 2020-03-12)
PROC: 5A1955Z Respiratory Ventilation, Greater than 96 Consecutive Hours (ICD-10-PCS; principal; 2020-03-19)
PROC: 0BH17EZ Insertion of Endotracheal Airway into Trachea, Via Natural or Artificial Opening (ICD-10-PCS; 2020-03-19)
PROC: 5A1955Z Respiratory Ventilation, Greater than 96 Consecutive Hours (ICD-10-PCS; 2020-03-19)
DX: A41.02 Sepsis due to Methicillin resistant Staphylococcus aureus (principal); R65.20 Severe sepsis without septic shock; I10 Essential (primary) hypertension; N30.01 Acute cystitis with hematuria; R13.12 Dysphagia, oropharyngeal phase; J15.212 Pneumonia due to Methicillin resistant Staphylococcus aureus; G93.49 Other encephalopathy; J96.21 Acute and chronic respiratory failure with hypoxia; E86.0 Dehydration; E87.0 Hyperosmolality and hypernatremia; E87.6 Hypokalemia; Z20.828 Contact with and (suspected) exposure to other viral communicable diseases; Z87.820 Personal history of traumatic brain injury; Z79.899 Other long term (current) drug therapy; Z68.1 Body mass index [BMI] 19.9 or less, adult
CPT/HCPCS: 36415; 36600; 71045; 80048; 80053; 80202; 81001; 82140; 82728; 82803; 82805; 82947; 82962; 83615; 83735; 84132; 84145; 85007; 85014; 85018; 85025; 85379; 85610; 86140; 87040; 87070; 87076; 87186; 87205; 90471; 94002; 94003; 94640; 94760; 96361; 96374; G0378; J0456; J0692; J0696; J1100; J1170; J1650; J2060; J2270; J2405; J2920; J2930; J3010; J3370; J7030; J7040; J7042; J7050; J7070; U0003

== ENCOUNTER 2020-03-31 16:22 | Emergency (ER) | payer MEDICAID ==
--- NOTE | 2020-03-31 16:57 | Emergency Department Report ---
ED CPR HPI - General Stated Complaint: CARDIAC ARREST Time Seen by Provider: 03/31/20 16:39 Source: EMS - History of Present Illness Initial Comments: 64-year-old male presents to ED from [facility] in cardiac arrest. According to EMS, patient last seen normal at 9 AM this morning. Reported that patient has been unresponsive for most of the day. EMS was called. They state upon arrival patient was breathing briefly then went into cardiac arrest. Patient went into VF and was shocked x1. Patient was given epi x1 and transported here to the ED. Patient currently in asystole. Complaint: found unresponsive -: unknown Place: [facility] Bystander CPR Performed: No Initial Findings in the Field: unresponsive, agonal, VTACH/VFIB ROSC in the Field: No Treatments Prior to Arrival: BMV, defribrillated shocks # (1), epinephrine mgs # (1) - Related Data Previous Rx's Medication Instructions Recorded Last Taken Type Arformoterol Nebu [Brovana Nebu] 15 mcg IH Q12HRT 30 Days ml 03/22/20 Unknown Rx Budesonide [Pulmicort Respules] 0.5 mg IH Q12HRT 30 Days nebu 03/22/20 Unknown Rx QUEtiapine [SEROquel] 100 mg PO BID #60 tablet 03/22/20 Unknown Rx predniSONE [Deltasone] 40 mg PO QDAY #10 tab 03/22/20 Unknown Rx Allergies Allergy/AdvReac Type Severity Reaction Status Date / Time No Known Allergies Allergy Unverified 07/26/19 04:50 ED Review of Systems ROS: Stated complaint: CARDIAC ARREST Other details as noted in HPI Comment: Unobtainable due to pts medical conditions ED Past Medical Hx - Past Medical History Hx Hypertension: Yes Hx Deep Vein Thrombosis: (unknown) Additional medical history: TBI - Surgical History Hx Pacemaker: No Hx Internal Defibrillator: No Additional Surgical History: Trach and PEG - Social History Smoking Status: Unknown if ever smoked - Medications Home Medications: Home Medications Medication Instructions Recorded Confirmed Last Taken Type Arformoterol Nebu [Brovana Nebu] 15 mcg IH Q12HRT 30 Days ml 03/22/20 Unknown Rx Budesonide [Pulmicort Respules] 0.5 mg IH Q12HRT 30 Days nebu 03/22/20 Unknown Rx QUEtiapine [SEROquel] 100 mg PO BID #60 tablet 03/22/20 Unknown Rx predniSONE [Deltasone] 40 mg PO QDAY #10 tab 03/22/20 Unknown Rx ED Physical Exam - Head Head exam: Present: atraumatic, normocephalic - Eye Pupils: Present: other (fixed bilaterally) - ENT ENT exam: Present: mucous membranes dry - Neck Neck exam: Present: other (trach in place) - Respiratory Respiratory exam: Present: other (no spontaneous breaths) - Cardiovascular Cardiovascular Exam: Present: other (no palpable pulse) - GI/Abdominal GI/Abdominal exam: Present: soft. Absent: distended - Extremities Exam Extremities exam: Present: normal inspection - Neurological Exam Neurological exam: Present: other (GCS 3) - Skin Skin exam: Present: warm, dry, intact, normal color ED Medical Decision Making - Medical Decision Making 64-year-old male presents to ED in cardiac arrest. According to EMS, patient last seen normal at 9 AM this morning. Reported that patient has been unresponsive for most of the day. Upon ED arrival patient in asystole. Code was run according to ACLS guidelines. Please see nurses note for details. Unfortunately patient did not achieve ROSC. Time of was called 16:25. Critical care attestation.: If time is entered above; I have spent that time in minutes in the direct care of this critically ill patient, excluding procedure time. ED Disposition Clinical Impression: Cardiac arrest Disposition: DC-20 Is pt being admited?: No Condition: Stable Referrals: PRIMARY CARE, [Primary Care Provider] - 3-5 Days Time of Disposition: 17:01
== END 2020-03-31 20:00 ==
LOC: ED 16:22
DX: I46.9 Cardiac arrest, cause unspecified (principal); I10 Essential (primary) hypertension; Z98.890 Other specified postprocedural states; Z79.899 Other long term (current) drug therapy